=== PATIENT | male | born 1950 | race Caucasian/White ===

== ENCOUNTER 2020-03-28 09:52 | Inpatient (IN) | payer MEDICARE, OTHER ==
[~2020-03-28] VITALS: Ht 182.9 cm; Wt 88.7 kg
[2020-03-28 10:40] VITALS: BP 131/81
--- NOTE | 2020-03-28 10:40 | NUR ---
MARITZA BEGUM admitted to room 223-1, with an admitting diagnosis of CVA, on 03/28/20 from 4TH FLOOR via W/C, accompanied by STAFF.MARITZA BEGUM introduced to surroundings, call light, bed controls, phone, TV, temperature control, lights, meal times, smoking policy, visitor policy, side rail policy, bathrooms and showers. Patient Rights given to patient in the handbook.MARITZA BEGUM verbalizes understanding that [facility] is not responsible for the loss or damage to any personal effects or valuables that are kept in the patients posession during their hospitalization. The following Patient Care Plans were discussed with the PT AND : Discharge Planning, PAIN CONTROL,TESTS AND PROCEDURES, and PT/OT/ST. MARITZA BEGUM verbalizes understanding of Interdisciplinary Patient Education. Patient and/or family were informed about the Rapid Response Team and its purpose. Patient received Patient Rights Booklet, which includes Privacy Act Statement and Data Collection Information Summary.
[2020-03-28] MEDS ORDERED: ONDANSETRON 4 MG (ZOFRAN) ORAL DISSOLVE TAB PO PRN (10:45)
[2020-03-28] MEDS ORDERED: LACTULOSE SYRUP 10GM/15ML (ENULOSE) 30ML UDC PO PRN (10:45)
[2020-03-28] MEDS ORDERED: FLEET ENEMA ADULT 1 EA BTL PR PRN (10:45)
[2020-03-28] MEDS ORDERED: guaiFENesin/CODEINE (ROBITUSSIN AC) 10ML UDC PO PRN (10:45)
[2020-03-28] MEDS ORDERED: DOCUSATE SODIUM 100 MG (COLACE) CAP PO PRN (10:45)
[2020-03-28] MEDS ORDERED: CALCIUM CARBONATE 500 MG (TUMS) TAB.CHEW PO PRN (10:45)
[2020-03-28] MEDS ORDERED: BISACODYL 10 MG SUPP (DULCOLAX) PR PRN (10:45)
[2020-03-28] MEDS ORDERED: diphenhydrAMINE 25 MG TAB (BENADRYL) PO PRN (10:45)
--- NOTE | 2020-03-28 12:04 | Occupational Therapy Eval ---
OT Evaluation-General/PLF Medical Diagnosis Admission Date Mar 28, 2020 at 10:50 Medical Diagnosis: CVA Onset Date: Mar 28, 2020 Therapy Diagnosis Therapy Diagnosis: decreased ADL status, impaired functional balance Precautions Precautions/Isolations: Standard Precautions Referral Physician: Checo Dyer Reason: Evaluation/Treatment Medical History Pertinent Medical History: HTN Additional Medical History carotid stenosis, vertebral artery stenosis,. Pt sustained a fall approx 2 years ago and his mobility has been significantly limited since that time. Current History Pt admitted to [facility] with dizziness and vision changes, with report of no vision right eye. He was found to have an acute ischemic CVA. Pt transferred to ARU for continued medical management and skilled therapy services. Social History Home: Single Level Current Living Status: Spouse Entry Into Home: Stairs Without Railing Steps Into Home: 1 ADL-Prior Level of Function SCALE: Activities may be completed with or without assistive devices. 8-Nlamktwqtg-ariawae completes the activity by him/herself with no assistance from a helper. 5-Set-up or Clean-up Assistance-helper sets up or cleans up; patient completes activity. [place] assists only prior to or following the activity. 4-Supervision or Touching Assistance-helper provides verbal cues and/or touching/steadying and/or contact guard assistance as patient completes activity. Assistance may be provided throughout the activity or intermittently. 3-Partial/Moderate Assistance-helper does LESS THAN HALF the effort. [place] lifts, holds or supports trunk or limbs, but provides less than half the effort. 2-Substantial/Maximal Assistance-helper does MORE THAN HALF the effort. [place] lifts or holds trunk or limbs and provides more than half the effort. 5-Pwcxwklpg-kpmzns does ALL the effort. Patient does none of the effort to com plete the activity. Or, the assistance of 2 or more helpers is required for the patient to complete the activity. If activity was not attempted, code reason: 7-Patient Refused. 9-Not Applicable-not attempted and the patient did not perform the activity before the current illness, exacerbation or injury. 10-Not Attempted due to Environmental Limitations-(lack of equipment, weather restraints, etc.). 88-Not Attempted due to Medical Conditions or Safety Concerns. ADL PLOF Comments Pt indicates independent with ADLS at PLOF. Upon talking with pt's , she indicates that pt fell approx 2 years ago and has been primarily w/c bound since. She indicates pt is able to perform transfers himself but only walks about 5 feet at a time. He is able to propel w/c around the house. He rarely, if ever, leave the home. Pt's mentioned that she did not believe pt would be able to answer therapists questions well. Self Care: Independent Functional Cognition: Needed Some Help DME/Equipment: Bath Chair, Shower DME/Equipment Comments w/c, walker Drive Self: No OT Current Status Subjective Agreeable to OT evaluation and OT/PT cotreat. Did not verbalize any pain. Mental Status/Objective Patient Orientation: Person, Confused Attachments: Telemetry Current Glasses/Contacts: No Hearing Aids: No Dentures/Partials: No Hand Dominance: Right Upper Extremity ROM WFL, BUE shoulder flexion to approx 140 degrees Upper Extremity Coordination WFL Upper Extremity Sensation slightly decreased. Pt denies tingling/numbness, but throughout tx pt's RUE hung down at his side against w/c or recliner, pt unable to tell where his arm is. Upper Extremity Strength grossly 3+/5 RUE, LUE grossly 4/5 ADL-Treatment Eating (QC): 5 (Based on clincial judgement, pt would require set up assistance with task.) Oral Hygiene (QC): 3 (Min A, pt required cues to rinse and spit, assist to bring cup to mouth and assist bringing spit tray to mouth. Pt able to use toothbrush and brush gums after OT handed pt toothbrush set up with paste.) Shower/Bathe Self (QC): 1 (Assist x2 in ergonomics engineer order for OT to wash buttocks. Pt able to wash UEs, chest and upper legs but required assistance wtih all parts for thoroughness. Assist to wash lower legs/feet.) Upper Body Dressing (QC): 3 (Mod A, pt able to thread LUE, assist with RUE and moderate cues with task. ) Lower Body Dressing (QC): 3 (Pt able to thread BLEs into pants with cues to initiate, assist with pant hike in standing.) On/Off Footwear (QC): 3 (Min A, pt able to doff bilateral gripper socks, and don LLE sock. Assist to don RLE sock.) Toileting Hygiene (QC): 1 (Based on clinical judgement, pt would require assistance with pant hike and hygiene.) Other Treatments OT evaluation complete. OT/PT cotreat due to skill of 2 clinicians required which a brass instrument repair technician could not perform in order to coordinate UE/LEs, and due to pt's limitations in functional mobility/transfers, strength, activity tolerance, R visual field deficit. OT focused on UE placement, cues for sequencing and safety, ADLs, PT focused on LE placement, gross overall movements, and functional mobility and ambulation. Pt began tx in w/ and transferred to standing with FWW. Pt performed functional ambulation with FWW, and after taking a few steps over uneven surface, pt began to lose balance. Pt sat in w/ and took a rest break. Pt performed simulated car transfer with FWW then returned to pt's room. Pt transferred from [facility] to [facility] for a sponge bath. Pt participated in sponge bath at at assist x2 due to standing balance and also needing assistance to wash feet and constant cues to reach certain body parts. Pt able to wash most parts, but required assistance with thoroughness as he did not fully wash. Pt then completed dressing and oral care. [facility] to perform functional mobility through the [facility] area. pt then returned to room and transferred back to recliner from [facility]. Throughout tx, pt required cues to attend to R visual field and for R side attention. Pt's R hand would hang down to his side, and required assistance placing it into his lap. Pt also required assistance placing RUE onto walker with each transfer. Post tx, pt has call light in reach, chair alarm on and all needs met. Education OT Patient Education: Correct positioning, Energy conservation, Modified ADL techniques, Progress toward Goal/Update tx plan, Purpose of tx/functional activities, Rehab process, Safety issues, Transfer techniques, W/C management Teaching Recipient: Patient Teaching Methods: Discussion Response to Teaching: Verbalize Understanding, Reinforcement Needed OT Short Term Goals Short Term Goals Time Frame: Apr 19, 2020 Oral hygiene: 5 Toileting hygiene: 3 Shower/bathe self: 3 Upper body dressin Lower body dressin OT Driver Operator Goals Driver Operator Goals Time Frame: Apr 26, 2020 Eating (QC): 6 Oral Hygiene (QC): 6 Toileting Hygiene (QC): 6 Shower/Bathe Self (QC): 4 Upper Body Dressing (QC): 5 Lower Body Dressing (QC): 5 On/Off Footwear (QC): 5 Additional Goals: 1-Demonstrate ADL Tasks, 2-Verbalize Understanding, 3- ImproveStrength/Kera 1=Demonstrate adherence to instructed precautions during ADL tasks. 2=Patient will verbalize/demonstrate understanding of assistive devices/modifications for ADL. 3=Patient will improve strength/tolerance for activity to enable patient to perform ADL's. OT Education/Plan Problem List/Assessment Assessment: Decreased Activ Tolerance, Decreased Safety Aware, Decreased UE Strength, Impaired Cognition, Impaired Funct Balance, Impaired I ADL's, Impaired Self-Care Skills, Restricted Funct UE ROM, Visual-Perceptual Deficit Discharge Recommendations Plan/Recommendations: Continue POC Treatment Plan/Plan of Care Patient would benefit from OT for education, treatment and training to promote independence in ADL's, mobility, safety and/or upper extremity function for ADL's. Plan of Care: ADL Retraining, Functional Mobility, Group Exercise/Act as Ind, UE Funct Exercise/Act, UE Neuromus Re-Ed/Coord, Visual/Perceptual Retrain, W/C Management Training Treatment Duration: Apr 26, 2020 Frequency: At least 5 of 7 days/Wk (IRF) Estimated Hrs Per Day: 1.5 hours per day Agreement: Yes Rehab Potential: Fair Time/GCodes Start Time: 10:50 Stop Time: 12:00 Total Time Billed (hr/min): 70 Billed Treatment Time 0713-2204 OT evaluation, [id number] OT/PT cotreat. 1, EVM (10'), ADL 2 (30'), FA 2 (30') LUCILLE PACE OT Mar 28, 2020 12:04
--- NOTE | 2020-03-28 12:08 | Physical Therapy Evaluation ---
PT Evaluation-General Medical Diagnosis Admission Date Mar 28, 2020 at 10:50 Medical Diagnosis: Acute ischemic CVA Onset Date: Mar 28, 2020 Therapy Diagnosis Therapy Diagnosis: weakness; abn gait Precautions Precautions/Isolations: Standard Precautions Referral Physician: sarkis Reason for Referral: Evaluation/Treatment Medical History Pertinent Medical History: HTN Additional Medical History Pt sustained a fall approx 2 years ago and his ambulation has been significantly limited since that time. Intracranial mass Current History Pt admitted to acute with dizziness and vision changes, with report of no vision right eye. He was found to have an acute ischemic CVA. Pt transferred to ARU for continued medical management and skilled therapy services. Reviewed History: Yes Social History Home: Single Level Current Living Status: Spouse Entry Into Home: Stairs Without Railing PT Steps Into Home: 1 PT Steps Inside Home: 0 Prior Prior Level of Function SCALE: Activities may be completed with or without assistive devices. 4-Lffzomejoj-tlnhwwj completes the activity by him/herself with no assistance from a helper. 5-Set-up or Clean-up Assistance-helper sets up or cleans up; patient completes activity. [place] assists only prior to or following the activity. 4-Supervision or Touching Assistance-helper provides verbal cues and/or touching/steadying and/or contact guard assistance as patient completes activity. Assistance may be provided throughout the activity or intermittently. 3-Partial/Moderate Assistance-helper does LESS THAN HALF the effort. [place] lifts, holds or supports trunk or limbs, but provides less than half the effort. 2-Substantial/Maximal Assistance-helper does MORE THAN HALF the effort. [place] lifts or holds trunk or limbs and provides more than half the effort. 7-Vgxapdslt-ammsnb does ALL the effort. Patient does none of the effort to complete the activity. Or, the assistance of 2 or more helpers is required for the patient to complete the activity. If activity was not attempted, code reason: 7-Patient Refused. 9-Not Applicable-not attempted and the patient did not perform the activity before the current illness, exacerbation or injury. 10-Not Attempted due to Environmental Limitations-(lack of equipment, weather restraints, etc.). 88-Not Attempted due to Medical Conditions or Safety Concerns. Bed Mobility: 6 Transfers (B,C,W/C): 6 Gait: 4 Stairs: 4 Indoor Mobility (Ambulation): Needed Some Help (Pt primarily uses wc) Stairs: Needed Some Help Prior Devices Use: Manual wheelchair, Walker Spoke with patient's this date and she reports he sustained a fall approx 2 years ago and since that time, he is primarily wheelchair bound. She reports he is able to transfer and toilet himself from a wheelchair level. Reports he only walks about 5 feet at a time; reports he is able to propel himself in the wheelchair at home; she reports he rarely, if ever, leaves the home. Reports they have 1 step to get in/out of the home without a handrail. PT Evaluation-Current Subjective Pt reports, "I am concerned about what you are going to do on this other floor." Referring to the transfer to ARU. Agrees to PT. Pt provides limited history; reports, "I don't like to visit very much." Spoke to patient's and she provided more details as noted in PLOF Objective Patient Orientation: Person, Confused Pt unable to voice age, number of children, past jobs or even recent history. ROM/Strength ROM Lower Extremities WNL Strength Lower Extremities Right LE strength is grossly 3+/5; left LE strength is 4+/5 Integumentary/Posture Integumentary Intact Posture Slightly rounded shoulders and forward head. Neuromuscular (Tone, Coordination, Reflexes) Tone is WNL; impaired coordinated movement rigth U/LE; reflexes intact. Decreased awareness right side with noted right neglect. Sensory Vision: Impaired Hearing: Functional Hand Dominance: Right Sensation Right Lower Extremit: Intact Sensation Left Lower Extremity: Impaired (decreased awareness in space and tactile touch) Transfers Roll Left & Right (QC): 3 (verbal and tactile cues to complete) Sit to Lying (QC): 3 (verbal and tactile cues to complete) Lying to Sitting/Side of Bed(Q: 3 (verbal and tactile cues to complete) Sit to Stand (QC): 3 (verbal and tactile cues to complete) Chair/Xks-wi-Fnpjg Xfer(QC): 2 (verbal and tactile cues to complete; assist for balacne with turning and assist to manage the walker. ) Toilet Transfer (QC): 3 Car Transfer (QC): 3 (verbal and tactile cues required. ) Pt lacks initiation with tasks and requires cues 90% of the time to stay on task and to complete; skilled cues for awareness of right side. Gait Does the Patient Walk?: Yes Mode of Locomotion: Both Anticipated Mode of Locomotion: Both Walk 10 feet (QC): 3 (assist for balance and to manage the walker; cues for obstacle avoidance and for sequencing. ) Walk 50 ft with 2 Turns(QC): 3 Walk 150 ft (QC): 88 Walking 10ft/uneven surface-QC: 3 Gait Assistive Device: FWW Comments/Gait Description Assist for balance, walker management; scanning; gait pattern. Pt has difficulty reaching up and maintaining grasp on walker with right UE; decreased step thru and clearance right LE; veers right; limited awareness of safety. Pt had 1 LOB episode during gait with rigid assist to recover. Wheelchair Training Does the Pt Use a Wheelchair?: Yes Wheel 50 ft with 2 turns (QC): 4 (SBA) Wheel 150 ft (QC): 3 (min assist to achieve this distance;) Type of Wheelchair: Manual Pt able to propel with B U/LE Stairs 1 Step (curb) (QC): 88 (approached step but pt unable to safely attempt.) 4 Steps (QC): 88 12 Steps (QC): 88 Balance Sitting Static: Fair Sitting Dynamic: Fair Standing Static: Fair Standing Dynamic: Fair Picking up an Object (QC): 88 Treatment Co treat with OT; skill of 2 clinicians indicated due to decreased cognitive awareness/interaction and need for heavy cues verbal and tactile throughout entire treatment; pt requires assist with sequencing, processing, initiation as well as placement and use of R UE; in addition, requires assist with transfers, gait and functional balance. Pt performed in and out of room mobility tasks as well as seated sponge bath. OT addressed sequencing and task completion as well as UE use as PT addressed the gross motor tasks of transfers, gait, bed mobiltiy. Assessment/Needs Post CVA with right side weakness and right side neqlect; in addition, limited initiation and ability to complete tasks without heavy verbal and tactile cues. Pt has been limited in his ambulatory status for approx 2 years (according to his ) and typically uses a wheelchair for mobility in his home and she also notes he rarely leaves his home. During this assessment, it is found that he is able to walk with assist for short distances. He will beneift from skilled PT to address his strength, balance and actiivty tolerance deficits as well as his limited initiation and visual deficits to optimize function, safety, initiaion and ability to reside at home as before. He was cooperative and will benefit from skilled services. Rehab Potential: Guarded PT Short Term Goals Short Term Goals Time Frame: Apr 11, 2020 Roll Left & Right: 5 Sit to lyin Lying to sitting on side of be: 5 Sit to stand: 4 Chair/dti-eq-igpzg transfer: 4 Walk 10 feet: 4 Walk 50 feet with two turns: 3 PT Donation Specialist Goals Donation Specialist Goals PT Donation Specialist Goals Time Frame: Apr 25, 2020 Roll Left & Right (QC): 6 Sit to Lying (QC): 6 Lying-Sitting on Side/Bed(QC): 6 Sit to Stand (QC): 6 Chair/Nky-de-Mvywj Xfer(QC): 6 Toilet Transfer (QC): 6 Car Transfer (QC): 4 Does the Patient Walk: Yes Walk 10 feet (QC): 4 Walk 50ft with 2 Turns (QC): 4 Walk 150 ft (QC): 9 Walking 10ft on Uneven Surface: 3 1 Step (curb) (QC): 3 4 Steps (QC): 9 12 Steps (QC): 9 Picking up an Object (QC): 9 Does the Pt use WC or Scooter?: Yes Wheel 50 feet with 2 turns (QC: 6 Type: Manual Wheel 150 feet: 6 Type: Manual PT Plan Problem List Problem List: Activity Tolerance, Functional Strength, Safety, Balance, Gait, Transfer, Bed Mobility Treatment/Plan Treatment Plan: Continue Plan of Care Treatment Plan: Bed Mobility, Education, Functional Activity Kera, Functional Strength, Group Therapy, Gait, Safety, Therapeutic Exercise, Transfers Treatment Duration: Apr 25, 2020 Frequency: At least 5 of 7 days/Wk (IRF) Estimated Hrs Per Day: 1.5 hours per day Patient and/or Family Agrees t: Yes Safety Risks/Education Patient Education: Transfer Techniques, Safety Issues Teaching Recipient: Patient Teaching Methods: Demonstration Response to Teaching: Return Demonstration, Reinforcement Needed Discharge Recommendations Therapy Discharge Recommendati: Post Acute PT Time/GCodes Time In: 1040 Time Out: 1050 ([id number] (co treat with OT)) Total Billed Treatment Time: 70 Total Billed Treatment visit EVM 10 FA 60 (co treat with OT) JANNET FRIAS PT Mar 28, 2020 12:08
--- NOTE | 2020-03-28 12:14 | PM&R Post Admission Assessment ---
PM&R HP Date of Visit: Mar 28, 2020 Time of Visit: 12:00 History of Present Illness CC: CVA HPI: This is a 69yoWM without a PCP who presents to the IRF with CVA deficits. Apparently he presented to the ER after an undetermined amount of time following complaints of vision loss and speech difficulty, He was not a tPA candidate. Apparently patient has been non-ambulatory for the past 2 years due to "rods in the leg" and gets around at home in a wheelchair. Patient seems to have dementia and cannot provide any significant details about his history. We will work towards increased independence while IRF course ensues. Past Kdqceyi-Fvwpsi-Ljqfxu Hx Past Med/Social Hx: Reviewed Nursing Past Med/Soc Hx, Reviewed and Corrections made Patient Social History Marrital Status: Employed/Student: retired Alcohol Use: Denies Use Smoking Status: Former Smoker Recent Hopitalizations: Yes Past Medical History Neurological: Stroke (03/26/20) Reproductive: No Musculoskeletal: Arthritis History of Blood Disorders: No Eatin (Based on clincial judgement, pt would require set up assistance with task.) Oral Hygiene: 3 (Min A, pt required cues to rinse and spit, assist to bring cup to mouth and assist bringing spit tray to mouth. Pt able to use toothbrush and brush gums after OT handed pt toothbrush set up with paste.) Shower/Bathe Self: 1 (Assist x2 in interior paneler order for OT to wash buttocks. Pt able to wash UEs, chest and upper legs but required assistance wtih all parts for thoroughness. Assist to wash lower legs/feet.) Upper Body Dressin (Mod A, pt able to thread LUE, assist with RUE and moderate cues with task. ) Lower Body Dressin (Pt able to thread BLEs into pants with cues to initiate, assist with pant hike in standing.) On/Off Footwear: 3 (Min A, pt able to doff bilateral gripper socks, and don LLE sock. Assist to don RLE sock.) Toileting Hygiene: 1 (Based on clinical judgement, pt would require assistance with pant hike and hygiene.) PM&R Allergy/Meds/Data Review Allergies Coded Allergies: Penicillins (Unverified Allergy, Intermediate, RASH, 02/08/06) codeine (Unverified Allergy, Intermediate, RASH, 02/08/06) Home Medications No Active Prescriptions or Reported Meds Current Medications Current Medications Reviewed Review of Systems Constitutional: see HPI, malaise, weakness EENTM: vision loss (right sided bilateral) Respiratory: no symptoms reported Cardiovascular: no symptoms reported Gastrointestinal: no symptoms reported Genitourinary: no symptoms reported Musculoskeletal: back pain, joint pain Skin: no symptoms reported Psychiatric/Neurological: No Symptoms Reported All Other Systems Reviewed Negative Unless Noted: Yes Physical Exam Physical Exam Vital Signs Capillary Refill : Height, Weight, BMI Height: '" Weight: lbs. oz. kg; 26.27 BMI Method: General Appearance: No Apparent Distress, WD/WN, Chronically ill Eyes: Bilateral Eye Normal Inspection, Bilateral Eye PERRL HEENT: PERRL/EOMI, TMs Normal, Normal ENT Inspection, Pharynx Normal Neck: Full Range of Motion, Normal Inspection, Non Tender, Supple, Carotid Bruit Respiratory: Chest Non Tender, Lungs Clear, Normal Breath Sounds, No Accessory Muscle Use, No Respiratory Distress Cardiovascular: Regular Rate, Rhythm, No Edema, No Gallop, No JVD, No Murmur, Normal Peripheral Pulses Gastrointestinal: Normal Bowel Sounds, No Organomegaly, No Pulsatile Mass, Non Tender, Soft Back: Normal Inspection, No CVA Tenderness, No Vertebral Tenderness Extremity: Normal Capillary Refill, Normal Inspection, Normal Range of Motion, Non Tender, No Calf Tenderness, No Pedal Edema Neurologic/Psychiatric: Alert, Normal Mood/Affect, 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, Abnormal Gait, Disoriented, Motor Weakness (generalized weakness 3/5 arms 2/5 legs but right sided neglect noted) Skin: Normal Color, Warm/Dry Lymphatic: No Adenopathy PM&R Medical Assessment & Plan REHAB/MEDICAL ASSESSMENT AND PLAN: REHAB IMPAIRMENT GROUP: CVA ETIOLOGIC DIAGNOSIS: CVA The comorbidities that impact the patients function and/or functional outcome by: severe debility PLOF, dementia noted SLUMS 03/06, right sided neglect, fall risk REHAB PLAN: The patient is being admitted to our comprehensive inpatient rehabilitation facility and can tolerate the intensity of service consisting of at least: 180 minutes of therapy a day, 5 out of 7 days a week Rehab treatment will consist of: PT OT will help increase mobility and build safety awareness and increase ambulatory skills in order to return home to live independently The patient/family has a good understanding of our discharge process and will benefit from an interdisciplinary inpatient rehabilitation program. The patient has potential to make improvement and is in need of at least two of the following multidisciplinary therapies including but not limited to physical, occupational, speech, and prosthetics and orthotics. Additionally the patient will need services from respiratory, nutritional services, wound care, psychology, etc. (Customize this to each patient). Given the patients complex condition and risk of further medical complications, rehabilitation services cannot be safely or effectively provided at a lower level of care such as a nursing home facility. BARRIERS TO DISCHARGE: Dementia and severe deficit in PLOF ESTIMATED LOS: 10 days DISPOSITION: Home RELEVANT CHANGES SINCE PREADMISSION SCREENING: I have compared the patients medical and functional status at the time of the preadmission screening and there are: no changes PROGNOSIS: Fair REHABILITATION GOALS: 1. PT OT will help increase mobility and build safety awareness and increase ambulatory skills in order to return home to live independently All the above goals were reviewed with the patient and he/she is in agreement. By signing this document, I acknowledge that I have personally performed a full physical examination on this patient within 24 hours of admission to this inpatient rehabilitation facility and have determined the patient to be able to tolerate the above course of treatment at an intensive level for a reasonable period of time. I will be completing a detailed individualized Plan of Care for this patient by day #4 of the patients stay based upon the Preadmission Screen, the Post-Admission Evaluation, and the therapy evaluations. 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 Status: Acute ICD Codes: I63.532 - Cerebral infarction due to unspecified occlusion or stenosis of left posterior cerebral artery (2) Carotid stenosis, bilateral Status: Acute ICD Codes: I65.23 - Occlusion and stenosis of bilateral carotid arteries (3) Right homonymous hemianopsia due to recent cerebral infarction Status: Acute ICD Codes: I69.398 - Other sequelae of cerebral infarction; H53.461 - Homonymous bilateral field defects, right side (4) Vertebral artery stenosis/occlusion Status: Acute ICD Codes: I65.09 - Occlusion and stenosis of unspecified vertebral artery (5) Impaired vision in both eyes Status: Acute ICD Codes: H54.3 - Unqualified visual loss, both eyes (6) HLD (hyperlipidemia) Status: Acute ICD Codes: E78.5 - Hyperlipidemia, unspecified (7) HTN (hypertension) Status: Acute ICD Codes: I10 - Essential (primary) hypertension Assessment/Plan Assessment and Plan Assess & Plan/Chief Complaint Assessment: s/p acute ischemic stroke Bilateral carotid stenosis has f/u [address] Sanders CTA revealed bilateral carotid stenosis >70%, chronically occluded right vertebral artery, left vertebral artery stenosis >70% Vertebral artery stenosis/occlusion Impaired vision in both eyes Dementia 03/06 SLUMS HTN HLD DVT prophylaxis: Lovenox Chronic debility and non-ambulatory for 2 years per Plan: IRF protocol Wheelchair bound at home Statin Monitor closely AYALA PARKS DO Mar 28, 2020 12:14
[2020-03-28] MEDS ORDERED: LORazepam INJ 2 MG/ML (ATIVAN) VIAL IVP PRN (12:15)
[2020-03-28] MEDS ORDERED: ONDANSETRON 4 MG/2 ML (SDV) Z0FRAN IVP PRN (12:15)
[2020-03-28] MEDS ORDERED: LABETALOL HCL 20 MG/4 ML VIAL IV PRN (12:15)
[2020-03-28] MEDS ORDERED: ENOXAPARIN 40 MG/0.4 ML (LOVENOX) SYR SC SCH (12:15)
--- NOTE | 2020-03-28 13:53 | Physical Therapy Daily Note ---
PT Daily Note-Current Subjective Agrees to PT. Asks this therapist during the session, "Do you ever get tired of doing this?" No complaints. Transfers SCALE: Activities may be completed with or without assistive devices. 6-Jbmxolmsud-oajkvyb completes the activity by him/herself with no assistance from a helper. 5-Set-up or Clean-up Assistance-helper sets up or cleans up; patient completes activity. [place] assists only prior to or following the activity. 4-Supervision or Touching Assistance-helper provides verbal cues and/or touching/steadying and/or contact guard assistance as patient completes activity. Assistance may be provided throughout the activity or intermittently. 3-Partial/Moderate Assistance-helper does LESS THAN HALF the effort. [place] lifts, holds or supports trunk or limbs, but provides less than half the effort. 2-Substantial/Maximal Assistance-helper does MORE THAN HALF the effort. [place] lifts or holds trunk or limbs and provides more than half the effort. 4-Olrtnghzj-jerfmk does ALL the effort. Patient does none of the effort to complete the activity. Or, the assistance of 2 or more helpers is required for the patient to complete the activity. If activity was not attempted, code reason: 7-Patient Refused. 9-Not Applicable-not attempted and the patient did not perform the activity before the current illness, exacerbation or injury. 10-Not Attempted due to Environmental Limitations-(lack of equipment, weather restraints, etc.). 88-Not Attempted due to Medical Conditions or Safety Concerns. Sit to Stand (QC): 3 (CGA but pt did not require cues for hand placement. ) Stood at edge of chair for weight shifting. Exercises Supine Ex: Ankle pumps, Quad Set, Heel Slides, Short Arc Quads, Straight leg raise, Hip abd/add Supine Reps: 12 (Le strength to promote improved transfers and gait. ) Seated Therapy Exercises: Ankle pumps, Long arc quads, Hip flexion, Hip abd/add Seated Reps: 12 (Le strength to promote improved transfers and gait. ) Treatments B LE ther ex; in chair with chair alarm activated post treatment; call light in reach and needs met. Assessment Improved transfer this afternoon and needed fewer cues. Pt seemed more alert and visited more this visit. PT Short Term Goals Short Term Goals Time Frame: Apr 11, 2020 Roll Left & Right: 5 Sit to lyin Lying to sitting on side of be: 5 Sit to stand: 4 Chair/ebb-ze-kyjcg transfer: 4 Walk 10 feet: 4 Walk 50 feet with two turns: 3 PT Skilled Nursing Goals Ibm Mainframe Developer Goals PT Skilled Nursing Goals Time Frame: Apr 25, 2020 Roll Left & Right (QC): 6 Sit to Lying (QC): 6 Lying-Sitting on Side/Bed(QC): 6 Sit to Stand (QC): 6 Chair/Kml-pj-Yppjr Xfer(QC): 6 Toilet Transfer (QC): 6 Car Transfer (QC): 4 Does the Patient Walk: Yes Walk 10 feet (QC): 4 Walk 50ft with 2 Turns (QC): 4 Walk 150 ft (QC): 9 Walking 10ft on Uneven Surface: 3 1 Step (curb) (QC): 3 4 Steps (QC): 9 12 Steps (QC): 9 Picking up an Object (QC): 9 Does the Pt use WC or Scooter?: Yes Wheel 50 feet with 2 turns (QC: 6 Type: Manual Wheel 150 feet: 6 Type: Manual PT Plan Problem List Problem List: Activity Tolerance, Functional Strength, Safety Treatment/Plan Treatment Plan: Continue Plan of Care Treatment Plan: Bed Mobility, Education, Functional Activity Kera, Functional Strength, Group Therapy, Gait, Safety, Therapeutic Exercise, Transfers Treatment Duration: Apr 25, 2020 Frequency: At least 5 of 7 days/Wk (IRF) Estimated Hrs Per Day: 1.5 hours per day Patient and/or Family Agrees t: Yes Time/GCodes Time In: 1332 Time Out: 1347 Total Billed Treatment Time: 15 Total Billed Treatment visit EX 15 JANNET FRIAS PT Mar 28, 2020 13:53
--- NOTE | 2020-03-28 14:03 | Occupational Ther Daily Note ---
OT Current Status-Daily Note Subjective Pt laying back in recliner, agreeable to OT tx. Mental Status/Objective Patient Orientation: Person, Confused ADL-Treatment Therapy Code Descriptions/Definitions Functional [place] Measure: 0=Not Assessed/NA 4=Minimal Assistance 1=Total Assistance 5=Supervision or Setup 2=Maximal Assistance 6=Modified [place] 3=Moderate Assistance 7=Complete IndependenceSCALE: Activities may be completed with or without assistive devices. 7-Zpluspbhet-rlprndf completes the activity by him/herself with no assistance from a helper. 5-Set-up or Clean-up Assistance-helper sets up or cleans up; patient completes activity. [place] assists only prior to or following the activity. 4-Supervision or Touching Assistance-helper provides verbal cues and/or touching/steadying and/or contact guard assistance as patient completes activity. Assistance may be provided throughout the activity or intermittently. 3-Partial/Moderate Assistance-helper does LESS THAN HALF the effort. [place] lifts, holds or supports trunk or limbs, but provides less than half the effort. 2-Substantial/Maximal Assistance-helper does MORE THAN HALF the effort. [place] lifts or holds trunk or limbs and provides more than half the effort. 8-Dsicycqzg-wfjoqv does ALL the effort. Patient does none of the effort to complete the activity. Or, the assistance of 2 or more helpers is required for the patient to complete the activity. If activity was not attempted, code reason: 7-Patient Refused. 9-Not Applicable-not attempted and the patient did not perform the activity before the current illness, exacerbation or injury. 10-Not Attempted due to Environmental Limitations-(lack of equipment, weather restraints, etc.). 88-Not Attempted due to Medical Conditions or Safety Concerns. Other Treatment Pt participated in BUE exercises of 15 reps each for the following; shoulder flexion, elbow flexion(biceps), elbow extension(triceps), and horizontal add uction. Pt needed verbal demonstration of how to do exercise on each one. On horizontal abduction, pt needed hand over hand guidance, verbal cues and demonstration to proceed with movement. OT attempted to demo to pt at pt's midline. Pt able to tell therapist to scoot over as he wasn't able to see her fully. OT able to move to pt's left visual field for demonstration. Pt left in recliner with call light in reach on L side and all needs met. Chair alarm on. Education OT Patient Education: Correct positioning, Exercise program, Modified ADL techniques, Progress toward Goal/Update tx plan, Purpose of tx/functional activities, Reviewed precautions Teaching Recipient: Patient Teaching Methods: Demonstration Response to Teaching: Reinforcement Needed OT Short Term Goals Short Term Goals Time Frame: Apr 19, 2020 Oral hygiene: 5 Toileting hygiene: 3 Shower/bathe self: 3 Upper body dressin Lower body dressin OT Correction Goals Instructor Nurse Goals Time Frame: Apr 26, 2020 Eating (QC): 6 Oral Hygiene (QC): 6 Toileting Hygiene (QC): 6 Shower/Bathe Self (QC): 4 Upper Body Dressing (QC): 5 Lower Body Dressing (QC): 5 On/Off Footwear (QC): 5 Additional Goals: 1-Demonstrate ADL Tasks, 2-Verbalize Understanding, 3- ImproveStrength/Kera 1=Demonstrate adherence to instructed precautions during ADL tasks. 2=Patient will verbalize/demonstrate understanding of assistive devices/modifications for ADL. 3=Patient will improve strength/tolerance for activity to enable patient to perform ADL's. OT Education/Plan Problem List/Assessment Assessment: Decreased UE Strength, Impaired I ADL's, Impaired Self-Care Skills, Restricted Funct UE ROM Discharge Recommendations Plan/Recommendations: Continue POC Treatment Plan/Plan of Care Patient would benefit from OT for education, treatment and training to promote independence in ADL's, mobility, safety and/or upper extremity function for ADL's. Plan of Care: ADL Retraining, Functional Mobility, Group Exercise/Act as Ind, UE Funct Exercise/Act, UE Neuromus Re-Ed/Coord, Visual/Perceptual Retrain, W/C Management Training Treatment Duration: Apr 26, 2020 Frequency: At least 5 of 7 days/Wk (IRF) Estimated Hrs Per Day: 1.5 hours per day Rehab Potential: Fair Time/GCodes Start Time: 13:15 Stop Time: 13:25 Total Time Billed (hr/min): 10 Billed Treatment Time 1, EX (10') LUCILLE PACE OT Mar 28, 2020 14:03
[2020-03-28] MEDS: ZINC OXIDE 16% OINT (BUTT PASTE) 57 GM TUBE TOP SCH ×2 (15:30→20:15)
--- NOTE | 2020-03-28 15:34 | NUR ---
NOTIFIED ABOUT PTS. UPDATE ON FLU VACCINE. YA () STATED "MARITZA HAS NEVER TAKEN THE FLU VACCINE, SO I DON'T THINK HE SHOULD TAKE IT THIS HOSPITAL STAY."
--- NOTE | 2020-03-28 15:47 | ST Cognitive Linguistic Eval ---
Speech Evaluation-General Medical Diagnosis CVA Onset Date: Mar 28, 2020 Therapy Diagnosis Therapy Diagnosis: Expressive Aphasia Precautions Precautions/Isolations: Fall Prevention, Standard Precautions Referral Referring Physician: Dr. Kessler Medical History Pertinent Medical History: HTN Reviewed History: Yes Social History Current Living Status: Spouse Speech PLF-Current Status Prior Level of Function Patient lives with his in their own home. Patient had a fall 2 years ago and he has been dependent for his daily needs since that time. Subjective Patient was pleasant with his cognitive and dysphagia assessments. Language Eval: Auditory Comprehends Simple Yes/No Ques: Functional Indent/Objects Multiple [place]: Mild Ident/Pics in [place]: Moderate Follows 1-Step Commands: Mild Follows Complex Directions: Moderate Follows General Conversations: Mild Language Eval: Verbal Language Completes Spontaneous Greeting: Functional Produces Auto, Serial Info: Mild Imitates Simple Words/Phrases: Mild Word Finding: Mild Requests Basic Needs: Mild States Basic Personal Info: Mild Expresses Complex Ideas: Moderate Objective Cognitive Domain Attention: Mild Memory: Mild Problem Solving: Moderate Executive Functions: Moderate Visuospatial Skills: Mild Composite Severity Rating: Moderate Objective Formal/Standardized Tests [facility] Mental Status ([facility]) Results 12/30, Moderate Dementia range of function Oral Motor/Speech Production Within Normal Limits, with decreased output Impression Patient is a 69 y/o male who was admitted to the ARU s/p CVA. Patient exhibits expressive aphasia, partially due to a fall 2 years ago. Patient has been primarily dependent on his since that time. The patient was given the UMS with a score of 12/30 obtained. This score is within the moderate dementia range of function. Patient will receive skilled ST to address cognitive and speech deficits. Patient was also assessed for his swallow ability with recommendation to remain on Dysphagia I and [place] consistency liquids. Patient will also receive dysphagia therapy with focus on safety of oral intake. Speech Patient Assess Expression of Ideas/Wants: Frequently (2) Understanding Verbal Content: Usually Understands (3) Brief Interview-Mental Status: Yes Repetition of Three Words: Three (3) Temporal Orientation: Year: Correct (3) Temporal Orientation: Month: Accurate within 5 days(2) Temporal Orientation: Day: Correct (1) Recall : Wear to say "Sock": No, could not recall (0) Recall : Color: No, could not recall (0) Recall : Bed: Yes,after cueing (1) Memory/Recall Ability: Current season, That he or she is in a hsp/hsp unit Speech Short Term Goals Short Term Goals Short Term Goals 1) Patient will complete memory tasks related to his daily needs with 80% accuracy given minimal cues. 2) Patient will complete tasks safety awareness to his daily needs with 80% accuracy given minimal cues. 3) Patient will complete problem solving tasks related to his daily needs with 80% accuracy given minimal cues. 4) Patient will tolerate least restrictive diet level without s/s of aspiration at 80% with minimal cues. 5) Patient/caregiver will utilize compensatory strategies as trained at 90% with minimal cues. Speech Group Home Goals Group Home Goals Patient will improve cognitive-communication abilities in order to complete daily tasks with decreased assistance. Patient will maintain adequate nutrition/hydration via safe effective swallow function. Speech-Plan Patient/Family Goals Patient/Family Goals: Patient plans on returning to his home where he lives with his . Treatment Plan Speech Therapy Treatment Plan: Continue Plan of Care Treatment Duration: Apr 12, 2020 Frequency: 4 times per week (Patient will receive skilled ST 4-5x per week) Estimated Hrs Per Day: .5 hour per day Rehab Potential: Fair Barriers to Learning: Patient's cognitive deficits as well as recent CVA Pt/Family Agrees to Plan: Yes Safety Risks/Education Teaching Recipient: Patient Teaching Methods: Discussion Response to Teaching: Verbalize Understanding, Reinforcement Needed Education Topics Provided: Safety within his room, safety with oral intake Time Speech Therapy Time In: 15:55 Speech Therapy Time Out: 16:25 Total Billed Time: 30 Billed Treatment Time 1, DYSEVS, DYST, SPSNDCOMP, SLTS HOLDEN Erazo Mar 28, 2020 15:47
[2020-03-28 16:26] VITALS: BP 132/73
[2020-03-28] MEDS: CARVEDILOL 12.5 MG (COREG) TABLET PO SCH (20:15)
[2020-03-28] MEDS: ALPRAZolam 0.25 MG (XANAX) TAB PO PRN (20:15)
[2020-03-28] MEDS: DOCUSATE SODIUM 100 MG (COLACE) CAP PO SCH (20:22)
[2020-03-28] MEDS: SENNA W/DOCUSATE (SENOKOT S) TABLET PO SCH (20:23)
[2020-03-28] MEDS: polyethylene glycoL POWDER 17 GM (MIRALAX) PACK PO SCH (20:23)
[2020-03-29 05:38] VITALS: BP 149/80
[2020-03-29 05:50] LABS: BASOPHILS # (AUTO) 0.1 10^3/uL (0.0-0.1); BASOPHILS % (AUTO) 1 % (0-10); EOSINOPHILS # (AUTO) 0.1 10^3/uL (0.0-0.3); EOSINOPHILS % (AUTO) 1 % (0-10); HEMATOCRIT 47 % (40-54); HEMOGLOBIN 15.4 g/dL (13.3-17.7); LYMPHOCYTES # (AUTO) 2.3 10^3/uL (1.0-4.0); LYMPHOCYTES % (AUTO) 21 % (12-44); MEAN CORPUSCULAR HEMOGLOBIN 34 pg (25-34); MEAN CORPUSCULAR HGB CONC 33 g/dL (32-36); MEAN CORPUSCULAR VOLUME 104 fL (80-99); MEAN PLATELET VOLUME 11.1 fL (9.0-12.2); MONOCYTES # (AUTO) 1.4 10^3/uL (0.0-1.0); MONOCYTES % (AUTO) 13 % (0-12); NEUTROPHILS # (AUTO) 7.1 10^3/uL (1.8-7.8); NEUTROPHILS % (AUTO) 64 % (42-75); PLATELET COUNT 219 10^3/uL (130-400); WHITE BLOOD COUNT 11.1 10^3/uL (4.3-11.0)
[2020-03-29 05:54] LABS: ALBUMIN 4.1 GM/DL (3.2-4.5)
[2020-03-29 05:55] LABS: CHLORIDE 106 MMOL/L (98-107); POTASSIUM 3.6 MMOL/L (3.6-5.0); SODIUM 142 MMOL/L (135-145)
[2020-03-29 05:56] LABS: CALCIUM 9.3 MG/DL (8.5-10.1)
[2020-03-29 05:57] LABS: GLUCOSE 123 MG/DL (70-105); TOTAL PROTEIN 7.5 GM/DL (6.4-8.2)
[2020-03-29 05:58] LABS: CARBON DIOXIDE 22 MMOL/L (21-32)
[2020-03-29 06:00] LABS: ALKALINE PHOSPHATASE 59 U/L (40-136)
[2020-03-29 06:01] LABS: CREATININE SERUM 0.85 MG/DL (0.60-1.30); GFR ESTIMATED > 60
[2020-03-29 06:02] LABS: BUN/CREATININE RATIO 33
[2020-03-29 06:04] LABS: ALANINE AMINOTRANSFERASE 29 U/L (0-55)
[2020-03-29] MEDS: polyethylene glycoL POWDER 17 GM (MIRALAX) PACK PO SCH ×2 (07:52→20:41)
[2020-03-29] MEDS: ENOXAPARIN 40 MG/0.4 ML (LOVENOX) SYR SC SCH (07:52)
[2020-03-29] MEDS: SENNA W/DOCUSATE (SENOKOT S) TABLET PO SCH ×2 (07:52→20:41)
[2020-03-29] MEDS: CARVEDILOL 12.5 MG (COREG) TABLET PO SCH ×2 (07:53→20:42)
[2020-03-29] MEDS: DOCUSATE SODIUM 100 MG (COLACE) CAP PO SCH ×2 (07:53→20:41)
[2020-03-29] MEDS: CLOPIDOGREL 75 MG (PLAVIX) TABLET PO SCH (07:53)
[2020-03-29] MEDS: ZINC OXIDE 16% OINT (BUTT PASTE) 57 GM TUBE TOP SCH ×2 (07:56→20:42)
[2020-03-29] MEDS: amLODIPine 10 MG (NORVASC) TAB PO SCH (07:56)
--- NOTE | 2020-03-29 10:24 | PM&R Progress Note ---
Subjective HPI/CC On Admission Date Seen by Provider: Mar 29, 2020 Time Seen by Provider: 10:30 Subjective/Events-last exam 03/29/20: Patient seems to be progressing very well Able to walk farther today Seems more alert and less confused today Outperforming with therapy today No pain reported ST working with him for swallowing and cognition Checked meds and labs Review of Systems Neurological: Weakness, Incoordination, Change in speech, Confusion Objective Exam Vital Signs Vital Signs Date Time Temp Pulse Resp B/P (MAP) Pulse Ox O2 Delivery O2 Flow Rate FiO2 03/30/20 05:02 36.8 65 16 126/67 (86) 94 Room Air Capillary Refill : General Appearance: No Apparent Distress, WD/WN, Chronically ill HEENT: PERRL/EOMI, TMs Normal, Normal ENT Inspection, Pharynx Normal Neck: Full Range of Motion, Normal Inspection, Non Tender, Supple, Carotid Bru it Respiratory: Chest Non Tender, Lungs Clear, Normal Breath Sounds, No Accessory Muscle Use, No Respiratory Distress Cardiovascular: Regular Rate, Rhythm, No Edema, No Gallop, No JVD, No Murmur, Normal Peripheral Pulses Gastrointestinal: Normal Bowel Sounds, No Organomegaly, No Pulsatile Mass, Non Tender, Soft Back: Normal Inspection, No CVA Tenderness, No Vertebral Tenderness Extremity: Normal Capillary Refill, Normal Inspection, Normal Range of Motion, Non Tender, No Calf Tenderness, No Pedal Edema Neurologic/Psychiatric: Alert, Normal Mood/Affect, Abnormal 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 FIM Transfers Therapy Code Descriptions/Definitions Functional [place] Measure: 0=Not Assessed/NA 4=Minimal Assistance 1=Total Assistance 5=Supervision or Setup 2=Maximal Assistance 6=Modified [place] 3=Moderate Assistance 7=Complete IndependenceSCALE: Activities may be completed with or without assistive devices. 5-Snfgqrqqjh-zcgohdi completes the activity by him/herself with no assistance from a helper. 5-Set-up or Clean-up Assistance-helper sets up or cleans up; patient completes activity. [place] assists only prior to or following the activity. 4-Supervision or Touching Assistance-helper provides verbal cues and/or touching/steadying and/or contact guard assistance as patient completes activity. Assistance may be provided throughout the activity or intermittently. 3-Partial/Moderate Assistance-helper does LESS THAN HALF the effort. [place] lifts, holds or supports trunk or limbs, but provides less than half the effort. 2-Substantial/Maximal Assistance-helper does MORE THAN HALF the effort. [place] lifts or holds trunk or limbs and provides more than half the effort. 1-Ucbcmuvsb-ublxcl does ALL the effort. Patient does none of the effort to complete the activity. Or, the assistance of 2 or more helpers is required for the patient to complete the activity. If activity was not attempted, code reason: 7-Patient Refused. 9-Not Applicable-not attempted and the patient did not perform the activity before the current illness, exacerbation or injury. 10-Not Attempted due to Environmental Limitations-(lack of equipment, weather restraints, etc.). 88-Not Attempted due to Medical Conditions or Safety Concerns. Roll Left to Right (QC): 3 (verbal and tactile cues to complete) Sit to Lying (QC): 3 (verbal and tactile cues to complete) Sit to Stand (QC): 3 (CGA but pt did not require cues for hand placement. ) Chair/Jni-cx-Ddewp Xfer(QC): 2 (verbal and tactile cues to complete; assist for balacne with turning and assist to manage the walker. ) Car Transfer (QC): 3 (verbal and tactile cues required. ) Gait Training Does the Patient Walk?: Yes Walk 10 feet (QC): 3 (assist for balance and to manage the walker; cues for obstacle avoidance and for sequencing. ) Walk 50 ft with 2 Turns(QC): 3 Walk 150 ft (QC): 88 Walking 10ft/uneven surface-QC: 3 Gait Assistive Device: FWW Wheelchair Training Does the Pt Use a Wheelchair?: Yes Wheel 50 ft with 2 turns (QC): 4 (SBA) Wheel 150 ft (QC): 3 (min assist to achieve this distance;) Type of Wheelchair: Manual Stair Training 1 Step (curb) (QC): 88 (approached step but pt unable to safely attempt.) 4 Steps (QC): 88 12 Steps (QC): 88 Balance Picking up an Object (QC): 88 ADL-Treatment Eating (QC): 5 (Based on clincial judgement, pt would require set up assistance with task.) Oral Hygiene (QC): 3 (Min A, pt required cues to rinse and spit, assist to bring cup to mouth and assist bringing spit tray to mouth. Pt able to use toothbrush and brush gums after OT handed pt toothbrush set up with paste.) Shower/Bathe Self (QC): 1 (Assist x2 in shoemaking cutter order for OT to wash buttocks. Pt able to wash UEs, chest and upper legs but required assistance wtih all parts for thoroughness. Assist to wash lower legs/feet.) Upper Body Dressing (QC): 3 (Mod A, pt able to thread LUE, assist with RUE and moderate cues with task. ) Lower Body Dressing (QC): 3 (Pt able to thread BLEs into pants with cues to initiate, assist with pant hike in standing.) On/Off Footwear (QC): 3 (Min A, pt able to doff bilateral gripper socks, and don LLE sock. Assist to don RLE sock.) Toileting Hygiene (QC): 1 (Based on clinical judgement, pt would require assistance with pant hike and hygiene.) Assessment/Plan Assessment and Plan Assess & Plan/Chief Complaint Assessment: s/p acute ischemic stroke Bilateral carotid stenosis has f/u [address] Sanders CTA revealed bilateral carotid stenosis >70%, chronically occluded right vertebral artery, left vertebral artery stenosis >70% Vertebral artery stenosis/occlusion Impaired vision in both eyes Dementia 03/06 [facility] HTN HLD DVT prophylaxis: Lovenox Chronic debility and non-ambulatory for 2 years per Plan: IRF protocol Wheelchair bound at home Statin Monitor closely 03/29/20: Able to ambulate a lot more today Feels good about progress ST to help with swallowing (1) 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 Status: Acute (2) Carotid stenosis, bilateral Status: Acute (3) Right homonymous hemianopsia due to recent cerebral infarction Status: Acute (4) Vertebral artery stenosis/occlusion Status: Acute (5) Impaired vision in both eyes Status: Acute (6) HLD (hyperlipidemia) Status: Acute (7) HTN (hypertension) Status: Acute AYALA PARKS DO Mar 29, 2020 10:24
--- NOTE | 2020-03-29 10:24 | Individualized Plan of Care ---
Individualized Plan of Care Rehab Nursing IPOC Order Admission Date Mar 28, 2020 at 10:50 Current Orders Orders Admission Order(Inpt,Obs,Sdc) (03/28/20 10:38) Vital Signs: Per Unit Policy ( 08,16,00 (03/28/20 10:38) Jomar Merritt (03/28/20 10:38) Sequential Compression Device Q4H (03/28/20 10:38) Payroll Accounting Manager-Inpt Rehab Con (03/28/20 10:38) Rehab Nursing Orders-Ipoc (03/28/20 10:38) Physical Therapy Rehab Orders (03/28/20 10:38) Occupational Therapy Rehab Ord (03/28/20 10:38) Speech Therapy Rehab Orders (03/28/20 10:38) Cbc With Automated Diff (03/29/20 06:00) Comprehensive Metabolic Panel (03/29/20 06:00) Precautions (Aru) (03/28/20 10:38) Rehab-Intensity Of Therapy (03/28/20 10:38) Initiate Admission Nursing Pro .admission (03/28/20 10:38) Alprazolam Tablet (Xanax Tablet) (03/28/20 10:45) Calcium Carbonate Chew Tablet (Antacid C (03/28/20 10:45) Diphenhydramine Tablet (Benadryl Tablet) (03/28/20 10:45) Docusate Sodium Capsule (Colace Capsule) (03/28/20 21:00) Docusate Sodium Capsule (Colace Capsule) (03/28/20 10:45) Bisacodyl Suppository (Dulcolax Supposit (03/28/20 10:45) Lactulose Oral Solution (Enulose Oral So (03/28/20 10:45) Na Phos/Na Biphos Enema (Fleet Enema Minesh (03/28/20 10:45) Guaifenesin/Codeine Syrup (Robitussin Ac (03/28/20 10:45) Loperamide Tablet (Imodium Tablet) (03/28/20 10:45) Melatonin Tablet (Melatonin Tablet) (03/28/20 10:45) Polyethylene Glycol Powder Pkt (Miralax (03/28/20 21:00) Ondansetron Oral Dissolve Tab (Zofran (03/28/20 10:45) Senna S Tablet (Senokot S Tablet) (03/28/20 21:00) Initiate Admission Nursing Pro .admission (03/28/20 10:38) Admission Arrival Bed Request (03/28/20 10:40) Code/Resuscitation (03/28/20 12:14) Telemetry (03/28/20 12:14) Dys1 Pureed (03/28/20 Lunch) Acetaminophen Tablet/Caplet (Tylenol T (03/28/20 12:15) Atorvastatin Tablet (Lipitor Tablet) (03/28/20 21:00) Carvedilol Tablet (Coreg Tablet) (03/28/20 21:00) Clopidogrel Tablet (Plavix Tablet) (03/29/20 09:00) Lorazepam Injection (Ativan Injection) (03/28/20 12:15) Labetalol Injection (Normodyne Injection (03/28/20 12:15) Ondansetron Injection (Zofran Injectio (03/28/20 12:15) Amlodipine Tablet (Norvasc Tablet) (03/29/20 09:00) Consult Cardiology (03/28/20 12:14) Sequential Compression Device Q4H (03/28/20 12:14) Telemetry Nursing Assessment ( (03/28/20 12:14) Patient Visit (03/28/20 ) Pt Eval Moderate Complexity (03/28/20 ) Functional Activities, Ea 15 (03/28/20 ) Zinc Oxide 16% (Butt Paste) (03/28/20 13:15) Patient Visit (03/28/20 ) Exercise Therap, Ea 15 Min (03/28/20 ) Patient Visit (03/28/20 ) Speech Sound Lang Comp (03/28/20 ) Treat. Speech/Lang/Voice (03/28/20 ) Dysphagia Evaluation Std (03/28/20 ) Dysphagia Therapy (03/28/20 ) Enoxaparin Injection (Lovenox Injection) (03/29/20 09:00) Miconazole 2% Powder (Desenex Af 2% Powd (03/29/20 09:00) Patient Visit (03/29/20 ) Treat. Speech/Lang/Voice (03/29/20 ) Dysphagia Therapy (03/29/20 ) Saline Nasal [place] (Young Nasal [place]) (03/29/20 14:15) Patient Visit (03/29/20 ) Exercise Therap, Ea 15 Min (03/29/20 ) Gait Training, Ea 15 Min (03/29/20 ) Functional Activities, Ea 15 (03/29/20 ) Dys2 Mechanically Altered (03/29/20 Dinner) Rehab Nursing Orders: Ongoing Assess. of Cognitive Status, Ongoing Assess. of Function Status, Bladder Management, Bladder Scan, Bladder Training, Bowel Management, Bowel Training, Disease Management & Educaiton, DVT Prophylaxis, Fall Prevention, Fluid/Electrolyte/Nutrition Mgmt, Infection Prevention, Medication Management & Education, Management of Risks & Complications, Nutrition Management, Pain Management, Patient/Family Support, Safety Management, Swallow Precautions Intensity of Therapy to be met Patient to be seen: Min.3h per day/5 of 7d PT IPOC Problem List: Activity Tolerance, Functional Strength, Safety Treatment Plan: Continue Plan of Care Bed Mobility, Education, Functional Activity Kera, Functional Strength, Group Therapy, Gait, Safety, Therapeutic Exercise, Transfers Treatment Duration: Apr 25, 2020 Frequency: At least 5 of 7 days/Wk (IRF) Estimated Hrs Per Day: 1.5 hours per day OT IPOC Problems: Decreased Activ Tolerance, Decreased Safety Aware, Decreased UE Stren gth, Impaired Cognition, Impaired Funct Balance, Impaired I ADL's, Impaired Self-Care Skills, Restricted Funct UE ROM, Visual-Perceptual Deficit OT Treatment, Training and Edu: Yes Plan of Care: ADL Retraining, Functional Mobility, Group Exercise/Act as Ind, UE Funct Exercise/Act, UE Neuromus Re-Ed/Coord, Visual/Perceptual Retrain, W/C Management Training Treatment Duration: Apr 26, 2020 Frequency: At least 5 of 7 days/Wk (IRF) Estimated Hrs Per Day: 1.[address] IPOC Speech Therapy Treatment Plan: Continue Plan of Care Treatment Duration: Apr 12, 2020 Frequency: 4 times per week (Patient will receive skilled ST 4-5x per week) Estimated Hrs Per Day: .5 hour per day Payroll Accounting Manager/Case Mgmt Payroll Accounting Manager/Case Managemen: Discharge Planning Dietitian/Animal Rescuer Dietitian/Animal Rescuer to monitor nutritional status and make changes and/or recommendations as needed and work with speech pathology on dietary upgrades as the occur. Physician IPOC Medical Issues being managed closely and that require the 24 hour availability of a physician: Recent CVA with significant deficits will require close monitoring for any extension of the stroke and monitor for any elevated BP. Medical Issues: Bowel/Bladder Function, DVT Prophylaxis, Falls Precautions, Fluid/Electrolyte/Nutrition Balance, Infection Protection, Pain Management Brief Synthesis of Preadmission Screen, Post-Admission Evaluation, and Therapy Evaluations: PT OT ST will all focus on regaining function from chronic debility while focusing on the new deficits from the CVA in order to increase ambulation with fall risk prevention along with increasing ADL independence and swallowing safely. Medical Prognosis: Good Anticipated Length of Stay: 10 days AYALA PARKS DO Mar 29, 2020 10:24
--- NOTE | 2020-03-29 11:09 | Occupational Ther Daily Note ---
OT Current Status-Daily Note Subjective upon entering room, OT asked if pt remembered her and he responded with a yes, but when asked to answer who she was, he did not know. During a almanza bag activity, OT asked if pt could see the colors of the almanza bags, pt responded with yes, but when asked what color of almanza bag was in his hand, he did not know the color. Mental Status/Objective Patient Orientation: Confused Attachments: Telemetry Pt unable to provide year he was born, his age, where he was at. OT attempted to reorient pt with year he was born and tomorrow being his birthday, pt acted surprised and replied "I don't know". ADL-Treatment Therapy Code Descriptions/Definitions Functional [place] Measure: 0=Not Assessed/NA 4=Minimal Assistance 1=Total Assistance 5=Supervision or Setup 2=Maximal Assistance 6=Modified [place] 3=Moderate Assistance 7=Complete IndependenceSCALE: Activities may be completed with or without assistive devices. 7-Riefvqmqls-edtincv completes the activity by him/herself with no assistance from a helper. 5-Set-up or Clean-up Assistance-helper sets up or cleans up; patient completes activity. [place] assists only prior to or following the activity. 4-Supervision or Touching Assistance-helper provides verbal cues and/or touching/steadying and/or contact guard assistance as patient completes activity. Assistance may be provided throughout the activity or intermittently. 3-Partial/Moderate Assistance-helper does LESS THAN HALF the effort. [place] lifts, holds or supports trunk or limbs, but provides less than half the effort. 2-Substantial/Maximal Assistance-helper does MORE THAN HALF the effort. [place] lifts or holds trunk or limbs and provides more than half the effort. 5-Ewnqbwxch-qxyryh does ALL the effort. Patient does none of the effort to complete the activity. Or, the assistance of 2 or more helpers is required for the patient to complete the activity. If activity was not attempted, code reason: 7-Patient Refused. 9-Not Applicable-not attempted and the patient did not perform the activity before the current illness, exacerbation or injury. 10-Not Attempted due to Environmental Limitations-(lack of equipment, weather restraints, etc.). 88-Not Attempted due to Medical Conditions or Safety Concerns. Upper Body Dressing (QC): 3 (Trudi, pt able to thread arms and head through shirt, assistance needed to adjust down trunk) Lower Body Dressing (QC): 1 (Assist x2. for pants hike while standing for unsteady standing balance. Pt needed assistance on telling front to back, but when shown tag, pt was able to thread both legs through pants. Assist RLE into brief.) Other Treatment Pt began laying in bed at beginning of tx then transferred to B. Pt stated that his brief was wet, so pt stood to doff brief with needing a reminder to pull down brief on R side. Pt able to thread LLE through new brief with assistance RLE and to pull up on his R side. Pt retropulsive with stand required moderate balance assistance. Pt then transferred to w/c with FWW at [facility] for cuing to take steps with his R side, and cues to turn head to find chair. Pt propelled self to therapy gym with frequent reminders to scan his R side for obstacles. Once in gym, pt did arm bike exercise for bilateral integration and to increase activity tolerance for 10min. Pt's removed R hand multiple times from bar to scratch face, required assistance with placing hand back on handle. Pt attempted to place pegs into pegboard but pt could not see hole in peg board. OT placed 25 pegs in peg board and asked pt to take them out. Upon taking out pegs, pt needed cues to scan to his R side to find the bucket of pegs. After OT noticed pt remembered where the bucket was, OT began to move the bucket of pegs around on his R side and ask pt to scan for the bucket. Pt needed constant cues to continue to scan for the bucket. Pt then proceed to a almanza bag activity where pt had to scan his R side and find certain almanza bag. Pt was asked at the beginning if he could see the colors, pt responded with a yes, but when asked to find a certain color, pt stated he could not identify the colors. OT asked pt what color of almanza bag he was holding and pt stated "I don't know". OT asked the pt to find any almanza bags and place them in the basket to his R. Pt needed constant cues to turn his head to the R and find the basket. Pt then propelled self around commons area, with frequent cues to scan R side for obstacles. Pt propelled self to his room and [facility] at [place]. Pt was left in recliner with call light on L side, chair alarm on and all need met. Education OT Patient Education: Correct positioning, Modified ADL techniques, Progress toward Goal/Update tx plan, Purpose of tx/functional activities, Safety issues, W/C management Teaching Recipient: Patient Teaching Methods: Demonstration Response to Teaching: Unable to Comprehend, Reinforcement Needed OT Short Term Goals Short Term Goals Time Frame: Apr 19, 2020 Oral hygiene: 5 Toileting hygiene: 3 Shower/bathe self: 3 Upper body dressin Lower body dressin OT Custodial Goals Clinical Orthoptist Goals Time Frame: Apr 26, 2020 Eating (QC): 6 Oral Hygiene (QC): 6 Toileting Hygiene (QC): 6 Shower/Bathe Self (QC): 4 Upper Body Dressing (QC): 5 Lower Body Dressing (QC): 5 On/Off Footwear (QC): 5 Additional Goals: 1-Demonstrate ADL Tasks, 2-Verbalize Understanding, 3- ImproveStrength/Kera 1=Demonstrate adherence to instructed precautions during ADL tasks. 2=Patient will verbalize/demonstrate understanding of assistive devices/modifications for ADL. 3=Patient will improve strength/tolerance for activity to enable patient to perform ADL's. OT Education/Plan Problem List/Assessment Assessment: Decreased Safety Aware, Impaired Cognition, Impaired Funct Balance, Impaired I ADL's, Impaired Self-Care Skills, Visual-Perceptual Deficit Discharge Recommendations Plan/Recommendations: Continue POC Treatment Plan/Plan of Care Patient would benefit from OT for education, treatment and training to promote independence in ADL's, mobility, safety and/or upper extremity function for ADL's. Plan of Care: ADL Retraining, Functional Mobility, Group Exercise/Act as Ind, UE Funct Exercise/Act, UE Neuromus Re-Ed/Coord, Visual/Perceptual Retrain, W/C Management Training Treatment Duration: Apr 26, 2020 Frequency: At least 5 of 7 days/Wk (IRF) Estimated Hrs Per Day: 1.5 hours per day Agreement: Yes Rehab Potential: Fair Time/GCodes Start Time: 10:00 Stop Time: 11:00 Total Time Billed (hr/min): 60 Billed Treatment Time 1, ADL (10'), EX (10'), FA 2 (40') LUCILLE PACE OT Mar 29, 2020 11:09
--- NOTE | 2020-03-29 11:59 | Physical Therapy Daily Note ---
PT Daily Note-Current Subjective Pt. agreeable to Rx with encouragement. Pt. with confusion/ difficulty expressing self at times Pain Location: No Pain Reported Mental Status Patient Orientation: Non-Verbal/Aphasic Transfers SCALE: Activities may be completed with or without assistive devices. 5-Jwvzgvokni-sqdqwja completes the activity by him/herself with no assistance from a helper. 5-Set-up or Clean-up Assistance-helper sets up or cleans up; patient completes activity. [place] assists only prior to or following the activity. 4-Supervision or Touching Assistance-helper provides verbal cues and/or touchin g/steadying and/or contact guard assistance as patient completes activity. Assistance may be provided throughout the activity or intermittently. 3-Partial/Moderate Assistance-helper does LESS THAN HALF the effort. [place] lifts, holds or supports trunk or limbs, but provides less than half the effort. 2-Substantial/Maximal Assistance-helper does MORE THAN HALF the effort. [place] lifts or holds trunk or limbs and provides more than half the effort. 3-Dszburvkk-pwnhbb does ALL the effort. Patient does none of the effort to complete the activity. Or, the assistance of 2 or more helpers is required for the patient to complete the activity. If activity was not attempted, code reason: 7-Patient Refused. 9-Not Applicable-not attempted and the patient did not perform the activity before the current illness, exacerbation or injury. 10-Not Attempted due to Environmental Limitations-(lack of equipment, weather restraints, etc.). 88-Not Attempted due to Medical Conditions or Safety Concerns. Roll Left & Right (QC): 6 Sit to Lying (QC): 5 Lying to Sitting/Side of Bed(Q: 5 Sit to Stand (QC): 4 Chair/Pmp-gw-Vpfoj Xfer(QC): 4 needs direction and min to CGA for all mobility Gait Training Does the Patient Walk?: Yes Walk 10 feet (QC): 4 Walk 50 ft with 2 Turns(QC): 4 Gait Persons Needed: 1 Gait Assistive Device: FWW needs directed for GORGE and step length, w/c close behind, assist to steer FWW at times Wheelchair Training Does the Pt Use a Wheelchair?: Yes Wheel 50 ft with 2 turns (QC): 4 Type of Wheelchair: Manual uses UEs and LEs to propel w/c , needs guided to goal Exercises Supine Ex: Bridging, Ankle pumps, Quad Set, Rolling, Glut sets, Heel Slides, Scooting, Straight leg raise, Hip abd/add Supine Reps: 20 Seated Therapy Exercises: Ankle pumps, Sit to stand, Long arc quads, Hip flexion Seated Reps: 15 NuStep Minutes: 8 NuStep Workload: 2 Treatments at times pt. does not give effort and needed near mod assist for TRF SPT, was mixed in expressing self well. needed repeated instruction at times Assessment Current Status: Good Progress PT Short Term Goals Short Term Goals Time Frame: Apr 11, 2020 Roll Left & Right: 5 Sit to lyin Lying to sitting on side of be: 5 Sit to stand: 4 Chair/rpz-rh-fxhnb transfer: 4 Walk 10 feet: 4 Walk 50 feet with two turns: 3 PT Certified Prosthetist/Orthotist Goals Care Home Goals PT Certified Prosthetist/Orthotist Goals Time Frame: Apr 25, 2020 Roll Left & Right (QC): 6 Sit to Lying (QC): 6 Lying-Sitting on Side/Bed(QC): 6 Sit to Stand (QC): 6 Chair/Ovh-sp-Ihduc Xfer(QC): 6 Toilet Transfer (QC): 6 Car Transfer (QC): 4 Does the Patient Walk: Yes Walk 10 feet (QC): 4 Walk 50ft with 2 Turns (QC): 4 Walk 150 ft (QC): 9 Walking 10ft on Uneven Surface: 3 1 Step (curb) (QC): 3 4 Steps (QC): 9 12 Steps (QC): 9 Picking up an Object (QC): 9 Does the Pt use WC or Scooter?: Yes Wheel 50 feet with 2 turns (QC: 6 Type: Manual Wheel 150 feet: 6 Type: Manual PT Plan Treatment/Plan Treatment Plan: Continue Plan of Care Treatment Plan: Bed Mobility, Education, Functional Activity Kera, Functional Strength, Group Therapy, Gait, Safety, Therapeutic Exercise, Transfers Treatment Duration: Apr 25, 2020 Frequency: At least 5 of 7 days/Wk (IRF) Estimated Hrs Per Day: 1.5 hours per day Patient and/or Family Agrees t: Yes Safety Risks/Education Patient Education: Gait Training, Transfer Techniques, Correct Positioning, W/C Management, Disease Process, Safety Issues Teaching Recipient: Patient Teaching Methods: Demonstration, Discussion Response to Teaching: Verbalize Understanding, Return Demonstration, Reinforcement Needed Time/GCodes Time In: 1100 Time Out: 1200 Total Billed Treatment Time: 60 Total Billed Treatment EX35m,GT15m,FA10m JULIANN WITT SHADE MAKER Mar 29, 2020 11:59
--- NOTE | 2020-03-29 13:16 | Speech Therapy Daily Note ---
Speech Daily Progress Note Subjective Date Seen by Provider: Mar 29, 2020 Time Seen by Provider: 00:30 Patient was finishing up his lunch when I entered his room. Patient completed session with ST. Objective Patient completed trials of mechanical soft without difficulty. Patient will be upgraded this date to Dysphagia II diet with nectar consistency liquids. Assessment Assessment Current Status: Good Progress Treatment Plan Continue Plan of Care Speech Short Term Goals Short Term Goals Short Term Goals 1) Patient will complete memory tasks related to his daily needs with 80% accuracy given minimal cues. 2) Patient will complete tasks safety awareness to his daily needs with 80% accuracy given minimal cues. 3) Patient will complete problem solving tasks related to his daily needs with 80% accuracy given minimal cues. 4) Patient will tolerate least restrictive diet level without s/s of aspiration at 80% with minimal cues. 5) Patient/caregiver will utilize compensatory strategies as trained at 90% with minimal cues. Speech Mobile Game Engineer Goals Jail Goals Patient will improve cognitive-communication abilities in order to complete daily tasks with decreased assistance. Patient will maintain adequate nutrition/hydration via safe effective swallow function. Speech-Plan Patient/Family Goals Patient/Family Goals: Patient plans on returning to his home where he lives with his . Treatment Plan Speech Therapy Treatment Plan: Continue Plan of Care Treatment Duration: Apr 12, 2020 Frequency: 4 times per week (Patient will receive skilled ST 4-5x per week) Estimated Hrs Per Day: .5 hour per day Rehab Potential: Fair Barriers to Learning: Patient's recent CVA, decreased expressive language. Pt/Family Agrees to Plan: Yes Safety Risks/Education Teaching Recipient: Patient Teaching Methods: Demonstration, Discussion Response to Teaching: Verbalize Understanding, Return Demonstration Education Topics Provided: Continued safety within his room, continued safety with oral intake Time Speech Therapy Time In: 12:45 Speech Therapy Time Out: 13:15 Total Billed Time: 30 Billed Treatment Time 1, SLHEATHER, HOLDEN Cruz Mar 29, 2020 13:16
--- NOTE | 2020-03-29 14:07 | Occupational Ther Daily Note ---
OT Current Status-Daily Note Subjective Pt seated in recliner. OT asked pt if he remembered her from this morning and he stated that he does, but when asked who she was, pt states that he doesn't know. Mental Status/Objective Patient Orientation: Confused ADL-Treatment Therapy Code Descriptions/Definitions Functional [place] Measure: 0=Not Assessed/NA 4=Minimal Assistance 1=Total Assistance 5=Supervision or Setup 2=Maximal Assistance 6=Modified [place] 3=Moderate Assistance 7=Complete IndependenceSCALE: Activities may be completed with or without assistive devices. 2-Pecdtrqtuv-ambymwj completes the activity by him/herself with no assistance from a helper. 5-Set-up or Clean-up Assistance-helper sets up or cleans up; patient completes activity. [place] assists only prior to or following the activity. 4-Supervision or Touching Assistance-helper provides verbal cues and/or touching/steadying and/or contact guard assistance as patient completes act ivity. Assistance may be provided throughout the activity or intermittently. 3-Partial/Moderate Assistance-helper does LESS THAN HALF the effort. [place] lifts, holds or supports trunk or limbs, but provides less than half the effort. 2-Substantial/Maximal Assistance-helper does MORE THAN HALF the effort. [place] lifts or holds trunk or limbs and provides more than half the effort. 2-Lzxdtfqeb-xrtfre does ALL the effort. Patient does none of the effort to complete the activity. Or, the assistance of 2 or more helpers is required for the patient to complete the activity. If activity was not attempted, code reason: 7-Patient Refused. 9-Not Applicable-not attempted and the patient did not perform the activity before the current illness, exacerbation or injury. 10-Not Attempted due to Environmental Limitations-(lack of equipment, weather restraints, etc.). 88-Not Attempted due to Medical Conditions or Safety Concerns. Other Treatment Pt participated in low resistance theraband exercises in recliner with 15x each. Pt proceeded through B shoulder flexion, elbow flexion(biceps), elbow extension(triceps), and horizontal abduction. OT gave demonstration of each exercise and provided hand over hand when needed. After OT demonstrated one of the exercises, pt states that it would be easier for him to do the exercise if he knew what he was doing. OT informs him that she can do the exercise again, but pt declines the demonstration. He proceeded to do the exercise without another demonstration. After final exercise, pt states that he would like to lay down in bed. Pt transfers from recliner to bed using FWW. Pt needed cues to turn body more towards the bed and cues for hand placement. Pt was left in bed with call light on L side and all needs met. Bed alarm on. Education OT Patient Education: Exercise program, Modified ADL techniques, Progress toward Goal/Update tx plan, Purpose of tx/functional activities, Safety issues, Transfer techniques Teaching Recipient: Patient Teaching Methods: Demonstration, Discussion Response to Teaching: Unable to Comprehend, Reinforcement Needed OT Short Term Goals Short Term Goals Time Frame: Apr 19, 2020 Oral hygiene: 5 Toileting hygiene: 3 Shower/bathe self: 3 Upper body dressin Lower body dressin OT Skilled Nursing Goals Reactor Fueling Supervisor Goals Time Frame: Apr 26, 2020 Eating (QC): 6 Oral Hygiene (QC): 6 Toileting Hygiene (QC): 6 Shower/Bathe Self (QC): 4 Upper Body Dressing (QC): 5 Lower Body Dressing (QC): 5 On/Off Footwear (QC): 5 Additional Goals: 1-Demonstrate ADL Tasks, 2-Verbalize Understanding, 3- ImproveStrength/Kera 1=Demonstrate adherence to instructed precautions during ADL tasks. 2=Patient will verbalize/demonstrate understanding of assistive devices/modifications for ADL. 3=Patient will improve strength/tolerance for activity to enable patient to perform ADL's. OT Education/Plan Problem List/Assessment Assessment: Decreased Activ Tolerance, Decreased UE Strength, Impaired I ADL's, Impaired Self-Care Skills, Restricted Funct UE ROM, Visual-Perceptual Deficit Discharge Recommendations Plan/Recommendations: Continue POC Treatment Plan/Plan of Care Patient would benefit from OT for education, treatment and training to promote independence in ADL's, mobility, safety and/or upper extremity function for ADL's. Plan of Care: ADL Retraining, Functional Mobility, Group Exercise/Act as Ind, UE Funct Exercise/Act, UE Neuromus Re-Ed/Coord, Visual/Perceptual Retrain, W/C Management Training Treatment Duration: Apr 26, 2020 Frequency: At least 5 of 7 days/Wk (IRF) Estimated Hrs Per Day: 1.5 hours per day Agreement: Yes Rehab Potential: Fair Time/GCodes Start Time: 13:15 Stop Time: 13:30 Total Time Billed (hr/min): 15 Billed Treatment Time 1, EX (15') LUCILLE PACE OT Mar 29, 2020 14:07
--- NOTE | 2020-03-29 14:36 | Physical Therapy Daily Note ---
PT Daily Note-Current Transfers SCALE: Activities may be completed with or without assistive devices. 5-Rclkpfrlzi-pzijuvz completes the activity by him/herself with no assistance from a helper. 5-Set-up or Clean-up Assistance-helper sets up or cleans up; patient completes activity. [place] assists only prior to or following the activity. 4-Supervision or Touching Assistance-helper provides verbal cues and/or touching/steadying and/or contact guard assistance as patient completes activity. Assistance may be provided throughout the activity or intermittently. 3-Partial/Moderate Assistance-helper does LESS THAN HALF the effort. [place] lifts, holds or supports trunk or limbs, but provides less than half the effort. 2-Substantial/Maximal Assistance-helper does MORE THAN HALF the effort. [place] lifts or holds trunk or limbs and provides more than half the effort. 9-Ezdzvhgfj-hfyyvg does ALL the effort. Patient does none of the effort to complete the activity. Or, the assistance of 2 or more helpers is required for the patient to complete the activity. If activity was not attempted, code reason: 7-Patient Refused. 9-Not Applicable-not attempted and the patient did not perform the activity before the current illness, exacerbation or injury. 10-Not Attempted due to Environmental Limitations-(lack of equipment, weather restraints, etc.). 88-Not Attempted due to Medical Conditions or Safety Concerns. PT Short Term Goals Short Term Goals Time Frame: Apr 11, 2020 Roll Left & Right: 5 Sit to lyin Lying to sitting on side of be: 5 Sit to stand: 4 Chair/uwq-xv-figyf transfer: 4 Walk 10 feet: 4 Walk 50 feet with two turns: 3 PT Sample Selector Goals Residential Goals PT Residential Goals Time Frame: Apr 25, 2020 Roll Left & Right (QC): 6 Sit to Lying (QC): 6 Lying-Sitting on Side/Bed(QC): 6 Sit to Stand (QC): 6 Chair/Ady-yh-Ywpmt Xfer(QC): 6 Toilet Transfer (QC): 6 Car Transfer (QC): 4 Does the Patient Walk: Yes Walk 10 feet (QC): 4 Walk 50ft with 2 Turns (QC): 4 Walk 150 ft (QC): 9 Walking 10ft on Uneven Surface: 3 1 Step (curb) (QC): 3 4 Steps (QC): 9 12 Steps (QC): 9 Picking up an Object (QC): 9 Does the Pt use WC or Scooter?: Yes Wheel 50 feet with 2 turns (QC: 6 Type: Manual Wheel 150 feet: 6 Type: Manual PT Plan Treatment/Plan Treatment Plan: Bed Mobility, Education, Functional Activity [place], Functional Strength, Group Therapy, Gait, Safety, Therapeutic Exercise, Transfers Treatment Duration: Apr 25, 2020 Frequency: At least 5 of 7 days/Wk (IRF) Estimated Hrs Per Day: 1.5 hours per day Patient and/or Family Agrees t: Yes JULIANN WITT AUTOMOBILE BODY REPAIR SUPERVISOR Mar 29, 2020 14:36
--- NOTE | 2020-03-29 15:50 | NUR ---
"RD ASSESSMENT PMHx: dementia; current - CVA deficits; PT INTERACTION: Pt was awake and pleasant during nutrition consult for MST score. Note pt has hx of dementia and is a poor historian, per chart review. Pt states current appetite is getting better. Note avg PO intake 63% x2meal, per chart review. Pt states following a regular diet at home, and has no issues with chewing/swallowing food. Note pt currently on DYS1 Pureed diet, per chart review. Pt states no recent issues with n/v/c/d. Note last BM was 03/29, and pt currently on bowel regimen of colace BID, senna BID, and miralax BID, per chart review. Pt states no recent wt changes. Note unable to determine recent wt hx, per chart review. Upon visual assessment, pt appears adequately nourished with a BMI of 25.7. Given PO intake, wt hx, and visual assessment, pt does not meet criteria for malnutrition per ASPEN guidelines. Est. kcal needs: 2231-2193 kcal | 20-25 kcal/kg Est. Pro needs: 69-86 g Pro | 0.8-1.0 g Pro/kg PES STATEMENT: Inadequate oral intake (NI-2.1) related to loss of appetite, as evidenced by pt interview, and avg PO intake 63% x2meal. INTERVENTION: Continue with current diet order of DYS1 Pureed diet, with modifier of [place] Thick liquids. Pt may benefit from nutrition supplementation if PO intake declines. Will continue to follow and reassess as pt needs, intake, and status change. Magui GREEN, MS RD LD [phone] cell"
[2020-03-29 16:19] VITALS: BP 118/79
[2020-03-29] MEDS ORDERED: CLOP75TA69 PO (16:25)
[2020-03-29] MEDS ORDERED: ATOR80TA76 PO (16:25)
[2020-03-29] MEDS ORDERED: AMLO-251 PO (16:29)
[2020-03-29] MEDS ORDERED: CARV12.52 PO (16:29)
[2020-03-29] MEDS: MICONAZOLE 2% POWDER (DESENEX AF) 90 GM TOP SCH ×2 (16:56→20:43)
[2020-03-30 05:02] VITALS: BP 126/67
--- NOTE | 2020-03-30 05:56 | PM&R Progress Note ---
Subjective HPI/CC On Admission Date Seen by Provider: Mar 30, 2020 Time Seen by Provider: 13:30 Subjective/Events-last exam 03/30/20: Up in chair today Incontinent now Dysphagia 2 diet tolerated Did not eat lunch Sleepy Vision changes are profound 03/29/20: Patient seems to be progressing very well Able to walk farther today Seems more alert and less confused today Outperforming with therapy today No pain reported ST working with him for swallowing and cognition Checked meds and labs Review of Systems General: Fatigue, Malaise HEENT: Visual Changes Genitourinary: Incontinence Neurological: Change in speech Objective Exam Vital Signs Vital Signs Date Time Temp Pulse Resp B/P (MAP) Pulse Ox O2 Delivery O2 Flow Rate FiO2 03/31/20 05:03 37.0 63 16 129/69 (89) 93 Room Air Capillary Refill : General Appearance: No Apparent Distress, WD/WN, Chronically ill HEENT: PERRL/EOMI, TMs Normal, Normal ENT Inspection, Pharynx Normal Neck: Full Range of Motion, Normal Inspection, Non Tender, Supple, Carotid Bruit Respiratory: Chest Non Tender, Lungs Clear, Normal Breath Sounds, No Accessory Muscle Use, No Respiratory Distress Cardiovascular: Regular Rate, Rhythm, No Edema, No Gallop, No JVD, No Murmur, Normal Peripheral Pulses Gastrointestinal: Normal Bowel Sounds, No Organomegaly, No Pulsatile Mass, Non Tender, Soft Back: Normal Inspection, No CVA Tenderness, No Vertebral Tenderness Extremity: Normal Capillary Refill, Normal Inspection, Normal Range of Motion, Non Tender, No Calf Tenderness, No Pedal Edema Neurologic/Psychiatric: Alert, Normal Mood/Affect, Abnormal machine maintenance mechanic II-XII, Abnorma l Gait, Disoriented, Motor Weakness (generalized weakness 3/5 arms 2/5 legs but right sided neglect noted) Skin: Normal Color, Warm/Dry Lymphatic: No Adenopathy Results/Procedures Lab Patient resulted labs reviewed. FIM Transfers Therapy Code Descriptions/Definitions Functional [place] Measure: 0=Not Assessed/NA 4=Minimal Assistance 1=Total Assistance 5=Supervision or Setup 2=Maximal Assistance 6=Modified [place] 3=Moderate Assistance 7=Complete IndependenceSCALE: Activities may be completed with or without assistive devices. 8-Llngmeqoly-surkmqu completes the activity by him/herself with no assistance from a helper. 5-Set-up or Clean-up Assistance-helper sets up or cleans up; patient completes activity. [place] assists only prior to or following the activity. 4-Supervision or Touching Assistance-helper provides verbal cues and/or touching/steadying and/or contact guard assistance as patient completes activity. Assistance may be provided throughout the activity or intermittently. 3-Partial/Moderate Assistance-helper does LESS THAN HALF the effort. [place] lifts, holds or supports trunk or limbs, but provides less than half the effort. 2-Substantial/Maximal Assistance-helper does MORE THAN HALF the effort. [place] lifts or holds trunk or limbs and provides more than half the effort. 2-Nvhxcurml-lcxgno does ALL the effort. Patient does none of the effort to complete the activity. Or, the assistance of 2 or more helpers is required for the patient to complete the activity. If activity was not attempted, code reason: 7-Patient Refused. 9-Not Applicable-not attempted and the patient did not perform the activity before the current illness, exacerbation or injury. 10-Not Attempted due to Environmental Limitations-(lack of equipment, weather restraints, etc.). 88-Not Attempted due to Medical Conditions or Safety Concerns. Roll Left to Right (QC): 6 Sit to Lying (QC): 5 Sit to Stand (QC): 4 Chair/Xlk-qz-Wrgeu Xfer(QC): 4 Car Transfer (QC): 3 (verbal and tactile cues required. ) Gait Training Does the Patient Walk?: Yes Walk 10 feet (QC): 4 Walk 50 ft with 2 Turns(QC): 4 Walk 150 ft (QC): 88 Walking 10ft/uneven surface-QC: 3 Gait Persons Needed: 1 Gait Assistive Device: FWW Wheelchair Training Does the Pt Use a Wheelchair?: Yes Wheel 50 ft with 2 turns (QC): 4 Wheel 150 ft (QC): 3 (min assist to achieve this distance;) Type of Wheelchair: Manual Stair Training 1 Step (curb) (QC): 88 (approached step but pt unable to safely attempt.) 4 Steps (QC): 88 12 Steps (QC): 88 Balance Picking up an Object (QC): 88 ADL-Treatment Eating (QC): 5 (Based on clincial judgement, pt would require set up assistance with task.) Oral Hygiene (QC): 3 (Min A, pt required cues to rinse and spit, assist to bring cup to mouth and assist bringing spit tray to mouth. Pt able to use toothbrush and brush gums after OT handed pt toothbrush set up with paste.) Shower/Bathe Self (QC): 1 (Assist x2 in reordering clerk order for OT to wash buttocks. Pt able to wash UEs, chest and upper legs but required assistance wtih all parts for thoroughness. Assist to wash lower legs/feet.) Upper Body Dressing (QC): 3 (Trudi, pt able to thread arms and head through shirt, assistance needed to adjust down trunk) Lower Body Dressing (QC): 1 (Assist x2. for pants hike while standing for unsteady standing balance. Pt needed assistance on telling front to back, but when shown tag, pt was able to thread both legs through pants. Assist RLE into brief.) On/Off Footwear (QC): 3 (Min A, pt able to doff bilateral gripper socks, and don LLE sock. Assist to don RLE sock.) Toileting Hygiene (QC): 1 (Based on clinical judgement, pt would require assistance with pant hike and hygiene.) Assessment/Plan Assessment and Plan Assess & Plan/Chief Complaint Assessment: s/p acute ischemic stroke Bilateral carotid stenosis has f/u [address] Sanders CTA revealed bilateral carotid stenosis >70%, chronically occluded right vertebral artery, left vertebral artery stenosis >70% Vertebral artery stenosis/occlusion Impaired vision in both eyes Dementia 03/06 [facility] HTN HLD DVT prophylaxis: Lovenox Chronic debility and non-ambulatory for 2 years per Plan: IRF protocol Wheelchair bound at home Statin Monitor closely 03/29/20: Able to ambulate a lot more today Feels good about progress ST to help with swallowing 03/30/20: Advanced diet Incontinence care Vision issues (1) 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 Status: Acute (2) Carotid stenosis, bilateral Status: Acute (3) Right homonymous hemianopsia due to recent cerebral infarction Status: Acute (4) Vertebral artery stenosis/occlusion Status: Acute (5) Impaired vision in both eyes Status: Acute (6) HLD (hyperlipidemia) Status: Acute (7) HTN (hypertension) Status: Acute AYALA PARKS DO Mar 30, 2020 05:56
[2020-03-30] MEDS: DOCUSATE SODIUM 100 MG (COLACE) CAP PO SCH ×2 (08:11→20:58)
[2020-03-30] MEDS: ENOXAPARIN 40 MG/0.4 ML (LOVENOX) SYR SC SCH (08:11)
[2020-03-30] MEDS: CARVEDILOL 12.5 MG (COREG) TABLET PO SCH ×2 (08:11→20:57)
[2020-03-30] MEDS: CLOPIDOGREL 75 MG (PLAVIX) TABLET PO SCH (08:11)
[2020-03-30] MEDS: amLODIPine 10 MG (NORVASC) TAB PO SCH (08:11)
[2020-03-30] MEDS: SENNA W/DOCUSATE (SENOKOT S) TABLET PO SCH ×2 (08:11→20:59)
[2020-03-30] MEDS: polyethylene glycoL POWDER 17 GM (MIRALAX) PACK PO SCH ×2 (08:11→20:59)
[2020-03-30] MEDS: MICONAZOLE 2% POWDER (DESENEX AF) 90 GM TOP SCH ×2 (08:13→20:58)
[2020-03-30] MEDS: ZINC OXIDE 16% OINT (BUTT PASTE) 57 GM TUBE TOP SCH ×2 (08:13→20:59)
[2020-03-30 08:17] VITALS: BP 116/76
--- NOTE | 2020-03-30 11:32 | Physical Therapy Daily Note ---
PT Daily Note-Current Subjective Agrees to PT. Initiates conversation and answers questions appropriately. Mental Status Patient Orientation: Person, Place, Time, Situation Transfers SCALE: Activities may be completed with or without assistive devices. 2-Zoyiyxbbyb-bwikwlb completes the activity by him/herself with no assistance from a helper. 5-Set-up or Clean-up Assistance-helper sets up or cleans up; patient completes activity. [place] assists only prior to or following the activity. 4-Supervision or Touching Assistance-helper provides verbal cues and/or touching/steadying and/or contact guard assistance as patient completes activity. Assistance may be provided throughout the activity or intermittently. 3-Partial/Moderate Assistance-helper does LESS THAN HALF the effort. [place] lifts, holds or supports trunk or limbs, but provides less than half the effort. 2-Substantial/Maximal Assistance-helper does MORE THAN HALF the effort. [place] lifts or holds trunk or limbs and provides more than half the effort. 0-Kpngrbgac-cghqiq does ALL the effort. Patient does none of the effort to complete the activity. Or, the assistance of 2 or more helpers is required for the patient to complete the activity. If activity was not attempted, code reason: 7-Patient Refused. 9-Not Applicable-not attempted and the patient did not perform the activity before the current illness, exacerbation or injury. 10-Not Attempted due to Environmental Limitations-(lack of equipment, weather restraints, etc.). 88-Not Attempted due to Medical Conditions or Safety Concerns. Lying to Sitting/Side of Bed(Q: 4 Sit to Stand (QC): 4 (CGa with cues for hand placement.) Chair/Ffm-pz-Olyat Xfer(QC): 4 Pt walked x 5 ft bed to chair with FWW with CGA. Exercises Seated Therapy Exercises: Ankle pumps, Sit to stand, Long arc quads, Hip flexion, Hip abd/add, Glut set Seated Reps: 10 (Fct strength training to progress transfers and gait. ) Assessment Current Status: Good Progress Improved interaction this date and improved transfers and safety. PT Short Term Goals Short Term Goals Time Frame: Apr 11, 2020 Roll Left & Right: 5 Sit to lyin Lying to sitting on side of be: 5 Sit to stand: 4 Chair/scj-wi-spksg transfer: 4 Walk 10 feet: 4 Walk 50 feet with two turns: 3 PT Fdc Goals Fdc Goals PT Trash Man Goals Time Frame: Apr 25, 2020 Roll Left & Right (QC): 6 Sit to Lying (QC): 6 Lying-Sitting on Side/Bed(QC): 6 Sit to Stand (QC): 6 Chair/Hoz-ly-Nchxq Xfer(QC): 6 Toilet Transfer (QC): 6 Car Transfer (QC): 4 Does the Patient Walk: Yes Walk 10 feet (QC): 4 Walk 50ft with 2 Turns (QC): 4 Walk 150 ft (QC): 9 Walking 10ft on Uneven Surface: 3 1 Step (curb) (QC): 3 4 Steps (QC): 9 12 Steps (QC): 9 Picking up an Object (QC): 9 Does the Pt use WC or Scooter?: Yes Wheel 50 feet with 2 turns (QC: 6 Type: Manual Wheel 150 feet: 6 Type: Manual PT Plan Problem List Problem List: Activity Tolerance, Functional Strength, Safety, Balance, Gait, Transfer, Bed Mobility Treatment/Plan Treatment Plan: Continue Plan of Care Treatment Plan: Bed Mobility, Education, Functional Activity [place], Functional Strength, Group Therapy, Gait, Safety, Therapeutic Exercise, Transfers Treatment Duration: Apr 25, 2020 Frequency: At least 5 of 7 days/Wk (IRF) Estimated Hrs Per Day: 1.5 hours per day Patient and/or Family Agrees t: Yes Safety Risks/Education Patient Education: Transfer Techniques Teaching Recipient: Patient Teaching Methods: Demonstration, Discussion Response to Teaching: Reinforcement Needed Time/GCodes Time In: 850 Time Out: 906 Total Billed Treatment Time: 16 Total Billed Treatment visit FA 16 JANNET FRIAS PT Mar 30, 2020 11:32
[2020-03-30] MEDS: SALINE NASAL SPRAY (OCEAN) 45 ML BTL SCH ×3 (14:00→20:58)
[2020-03-30 17:39] VITALS: BP 131/71
[2020-03-31 05:03] VITALS: BP 129/69
[2020-03-31] MEDS: CLOPIDOGREL 75 MG (PLAVIX) TABLET PO SCH (09:28)
[2020-03-31] MEDS: ENOXAPARIN 40 MG/0.4 ML (LOVENOX) SYR SC SCH (09:28)
[2020-03-31] MEDS: CARVEDILOL 12.5 MG (COREG) TABLET PO SCH ×2 (09:28→20:17)
[2020-03-31] MEDS: amLODIPine 10 MG (NORVASC) TAB PO SCH (09:28)
[2020-03-31] MEDS: SALINE NASAL SPRAY (OCEAN) 45 ML BTL SCH ×4 (09:33→20:17)
[2020-03-31] MEDS: MICONAZOLE 2% POWDER (DESENEX AF) 90 GM TOP SCH ×2 (09:33→20:17)
[2020-03-31] MEDS: FLUTICASONE NASAL SPRAY (FLONASE) 16 GM BTL NS SCH (09:33)
[2020-03-31] MEDS: ZINC OXIDE 16% OINT (BUTT PASTE) 57 GM TUBE TOP SCH ×2 (09:36→20:17)
[2020-03-31] MEDS: DOCUSATE SODIUM 100 MG (COLACE) CAP PO SCH ×2 (09:41→20:17)
[2020-03-31 09:42] VITALS: BP 138/75
[2020-03-31] MEDS: SENNA W/DOCUSATE (SENOKOT S) TABLET PO SCH ×2 (09:42→20:18)
[2020-03-31] MEDS: polyethylene glycoL POWDER 17 GM (MIRALAX) PACK PO SCH ×2 (09:42→20:18)
--- NOTE | 2020-03-31 11:40 | NUR ---
MORE CONFUSED TODAY AND HAVING A HARDER TIME WITH TRANSFERS. STATES, "LEGS JUST DON'T WANT TO MOVE". CONTINUES TO COMPLAIN OF VISION LOSS AND CONTINUES TO BE INCONTINENT. HAS URINATED OFF THE SIDE OF THE BED. BED/CHAIR ALARM ON. DR. PARKS ON THE FLOOR AND INFORMED.
--- NOTE | 2020-03-31 11:40 | PM&R Progress Note ---
Subjective HPI/CC On Admission Date Seen by Provider: Mar 31, 2020 Time Seen by Provider: 11:45 Subjective/Events-last exam 03/31/20: More confused today Dr Barajas evaluated a run of atrial flutter of 160 last night for a brief moment so added Eliquis and maintained on Plavix for carotid stenosis Difficulty transferring Podiatry consult tomorrow 03/30/20: Up in chair today Incontinent now Dysphagia 2 diet tolerated Did not eat lunch Sleepy Vision changes are profound 03/29/20: Patient seems to be progressing very well Able to walk farther today Seems more alert and less confused today Outperforming with therapy today No pain reported ST working with him for swallowing and cognition Checked meds and labs Review of Systems General: Fatigue, Malaise Neurological: Weakness, Incoordination, Confusion Objective Exam Vital Signs Vital Signs Date Time Temp Pulse Resp B/P (MAP) Pulse Ox O2 Delivery O2 Flow Rate FiO2 03/31/20 17:26 36.8 69 17 122/78 (93) 93 Room Air Capillary Refill : General Appearance: No Apparent Distress, WD/WN, Chronically ill HEENT: PERRL/EOMI, TMs Normal, Normal ENT Inspection, Pharynx Normal Neck: Full Range of Motion, Normal Inspection, Non Tender, Supple, Carotid Bruit Respiratory: Chest Non Tender, Lungs Clear, Normal Breath Sounds, No Accessory Muscle Use, No Respiratory Distress Cardiovascular: Regular Rate, Rhythm, No Edema, No Gallop, No JVD, No Murmur, Normal Peripheral Pulses Gastrointestinal: Normal Bowel Sounds, No Organomegaly, No Pulsatile Mass, Non Tender, Soft Back: Normal Inspection, No CVA Tenderness, No Vertebral Tenderness Extremity: Normal Capillary Refill, Normal Inspection, Normal Range of Motion, Non Tender, No Calf Tenderness, No Pedal Edema Neurologic/Psychiatric: Alert, Normal Mood/Affect, Abnormal slimer II-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 FIM Transfers Therapy Code Descriptions/Definitions Functional [place] Measure: 0=Not Assessed/NA 4=Minimal Assistance 1=Total Assistance 5=Supervision or Setup 2=Maximal Assistance 6=Modified [place] 3=Moderate Assistance 7=Complete IndependenceSCALE: Activities may be completed with or without assistive devices. 3-Tozubiskxb-skrsopc completes the activity by him/herself with no assistance from a helper. 5-Set-up or Clean-up Assistance-helper sets up or cleans up; patient completes activity. [place] assists only prior to or following the activity. 4-Supervision or Touching Assistance-helper provides verbal cues and/or touching/steadying and/or contact guard assistance as patient completes activity. Assistance may be provided throughout the activity or intermittently. 3-Partial/Moderate Assistance-helper does LESS THAN HALF the effort. [place] lifts, holds or supports trunk or limbs, but provides less than half the effort. 2-Substantial/Maximal Assistance-helper does MORE THAN HALF the effort. [place] lifts or holds trunk or limbs and provides more than half the effort. 7-Mloykuyct-legfgb does ALL the effort. Patient does none of the effort to complete the activity. Or, the assistance of 2 or more helpers is required for the patient to complete the activity. If activity was not attempted, code reason: 7-Patient Refused. 9-Not Applicable-not attempted and the patient did not perform the activity before the current illness, exacerbation or injury. 10-Not Attempted due to Environmental Limitations-(lack of equipment, weather restraints, etc.). 88-Not Attempted due to Medical Conditions or Safety Concerns. Roll Left to Right (QC): 6 Sit to Lying (QC): 5 Sit to Stand (QC): 4 (CGa with cues for hand placement.) Chair/Ltf-iv-Tqath Xfer(QC): 4 Car Transfer (QC): 3 (verbal and tactile cues required. ) Gait Training Does the Patient Walk?: Yes Walk 10 feet (QC): 4 Walk 50 ft with 2 Turns(QC): 4 Walk 150 ft (QC): 88 Walking 10ft/uneven surface-QC: 3 Gait Persons Needed: 1 Gait Assistive Device: FWW Wheelchair Training Does the Pt Use a Wheelchair?: Yes Wheel 50 ft with 2 turns (QC): 4 Wheel 150 ft (QC): 3 (min assist to achieve this distance;) Type of Wheelchair: Manual Stair Training 1 Step (curb) (QC): 88 (approached step but pt unable to safely attempt.) 4 Steps (QC): 88 12 Steps (QC): 88 Balance Picking up an Object (QC): 88 ADL-Treatment Eating (QC): 5 (Based on clincial judgement, pt would require set up assistance with task.) Oral Hygiene (QC): 3 (Min A, pt required cues to rinse and spit, assist to bring cup to mouth and assist bringing spit tray to mouth. Pt able to use toothbrush and brush gums after OT handed pt toothbrush set up with paste.) Shower/Bathe Self (QC): 1 (Assist x2 in screw machine hand order for OT to wash buttocks. Pt able to wash UEs, chest and upper legs but required assistance wtih all parts for thoroughness. Assist to wash lower legs/feet.) Upper Body Dressing (QC): 3 (Trudi, pt able to thread arms and head through shirt, assistance needed to adjust down trunk) Lower Body Dressing (QC): 1 (Assist x2. for pants hike while standing for unsteady standing balance. Pt needed assistance on telling front to back, but when shown tag, pt was able to thread both legs through pants. Assist RLE into brief.) On/Off Footwear (QC): 3 (Min A, pt able to doff bilateral gripper socks, and don LLE sock. Assist to don RLE sock.) Toileting Hygiene (QC): 1 (Based on clinical judgement, pt would require assistance with pant hike and hygiene.) Assessment/Plan Assessment and Plan Assess & Plan/Chief Complaint Assessment: s/p acute ischemic stroke Bilateral carotid stenosis has f/u [address] Sanders CTA revealed bilateral carotid stenosis >70%, chronically occluded right vertebral artery, left vertebral artery stenosis >70% Vertebral artery stenosis/occlusion Impaired vision in both eyes Dementia 03/06 SLUMS HTN HLD DVT prophylaxis: Lovenox Chronic debility and non-ambulatory for 2 years per Atrial flutter noted on Tely 03/30/20 at 160 HR briefly so starte don OAC 03/31/20 Plan: IRF protocol Wheelchair bound at home Statin Monitor closely 03/29/20: Able to ambulate a lot more today Feels good about progress ST to help with swallowing 03/30/20: Advanced diet Incontinence care Vision issues 03/31/20: Added OAC to Plavix for atrial flutter run on Tely last night and reviewed by Dr Karl Confusion monitoring (1) 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 Status: Acute (2) Carotid stenosis, bilateral Status: Acute (3) Right homonymous hemianopsia due to recent cerebral infarction Status: Acute (4) Vertebral artery stenosis/occlusion Status: Acute (5) Impaired vision in both eyes Status: Acute (6) HLD (hyperlipidemia) Status: Acute (7) HTN (hypertension) Status: Acute AYALA PARKS DO Mar 31, 2020 11:40
--- NOTE | 2020-03-31 17:12 | NUR ---
REC'D IN AM REPORT THAT SWIMMER IN ICU CALLED PROFESSIONAL BONDSMAN RN LAST NIGHT AND REPORTED THAT PATIENT'S HR WAS IN THE 160S. NOT SUSTAINED AND ONLY LASTED A COUPLE OF SECONDS. SWIMMER WAS UNABLE TO CAPTURE ON STRIP. PROFESSIONAL BONDSMAN RN REPORTED THAT PATIENT GOT UP AND HAD A BM SHORTLY AFTER. NO OTHER EVENTS OCCURRED THE REST OF THE NIGHT. DR. CHURCH HERE AND INFORMED. NEW ORDER TO START ASA- [address] CHURCH AWARE THAT PATIENT IS ON PLAVIX AND LOVENOX.
[2020-03-31 17:26] VITALS: BP 122/78
--- NOTE | 2020-03-31 18:25 | NUR ---
CALL FROM DR. CHURCH. DR. CHURCH STATES THAT HE WAS ABLE TO LOCATE TELEMETRY STRIP FROM LAST NIGHT WHEN PATIENT'S HR WAS IN THE 160'S. THINKS THAT PATIENT WAS IN A FLUTTER. ORDERS TO DC ASA. START ELIQUIS- 5 MG PO BID. CONTINUE PLAVIX DAILY DUE TO CAROTIDS. DC LOVENOX. DR. PARKS UPDATED AND OK WITH CHANGES WELL.
--- NOTE | 2020-03-31 18:28 | Progress Note - Cardiology ---
Cardiology SOAP Progress Note Subjective: No cp or palp or syncope or shortness or breath or swelling or palp No n/v Gen malaise Objective: I&O/Vital Signs 03/31/20 03/31/20 03/31/20 03/31/20 07:00 09:42 09:50 12:44 Pulse 73 77 67 B/P (MAP) 138/75 (96) O2 Delivery Room Air 03/31/20 17:26 Temp 36.8 Pulse 69 Resp 17 B/P (MAP) 122/78 (93) Pulse Ox 93 O2 Delivery Room Air 03/31/20 00:00 Intake Total 400 ml Balance 400 ml Constitutional: other (appears mildly confused, provides short or no answers to questios) Respiratory: No accessory muscle use; other (Fair to good bilat air entry) Cardiovascular: regular rate-rhythm, S1 and S2, systolic murmur (soft QUYEN at card base) Gastrointestional: No tender; soft; No guarding, No rebound; audible bowel sounds Extremities: No clubbing, No cyanosis, No significant edema Neurologic/Psychiatric: No oriented x 3; other (mildly confused, seems to be able to move all limbs equally) Skin: No rash on exposed areas, No ulcerations on exposed areas A/P: Assessment: Neurologic deficits consisting of confusion, dyphasia, and R-sided vision loss: CVA (acute infarction involving most of the left posterior cerebral artery distribution) vs mass effect (hypodensities along the temporal lobe more in the white matter, worrisome for an underlying mass per CT and MRI of the head on 03-25-20 and 03-26-20, respectively) Carotid artery dz. CTA of 03-26-20: 70% stenosis of the right internal carotid artery. There is a 70 to 80% stenosis of the left internal carotid artery. 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 The left vertebral artery has approximately 70% stenosis at its origin and is fairly prominent vessel throughout the remainder of its course Brief atrial flutter with 2:1 AV conduction on 03/30/20 (lasting only a few seconds) Echo of 03/26/20: LVEF 60-65%, grade 1 diastolic dysfunction, mild to mod enlargement of LA, PASP 25 - 30 mmHg HTN HLD - advise statin tx Plan: * Management of stroke/mass effect is with Dr Kessler * Add Eliquis because of A Flutter and h/o CVA (for stroke prophylaxis) * D/c tele * Continue clopidogrel, given carotid art disease * Follow CV surgery's recs for carotid surg timing * Monitor labs TRINITY CHURCH MD FACP FAC CCDS Mar 31, 2020 18:28
[2020-03-31] MEDS: APIXABAN 5 MG (ELIQUIS) TABLET PO SCH (20:22)
[2020-03-31] MEDS: ALPRAZolam 0.25 MG (XANAX) TAB PO PRN (22:20)
[2020-04-01] MEDS: ACETAMINOPHEN 325 MG TABLET PO PRN ×3 (00:08→20:01)
[2020-04-01 05:14] VITALS: BP 125/60
[2020-04-01 05:31] LABS: BASOPHILS % (AUTO) 0 % (0-10); EOSINOPHILS % (AUTO) 0 % (0-10); HEMATOCRIT 44 % (40-54); HEMOGLOBIN 14.8 g/dL (13.3-17.7); LYMPHOCYTES # (AUTO) 2.1 10^3/uL (1.0-4.0); LYMPHOCYTES % (AUTO) 17 % (12-44); MEAN CORPUSCULAR HEMOGLOBIN 34 pg (25-34); MEAN CORPUSCULAR HGB CONC 34 g/dL (32-36); MEAN CORPUSCULAR VOLUME 101 fL (80-99); MEAN PLATELET VOLUME 11.7 fL (9.0-12.2); MONOCYTES # (AUTO) 2.3 10^3/uL (0.0-1.0); MONOCYTES % (AUTO) 18 % (0-12); NEUTROPHILS # (AUTO) 8.2 10^3/uL (1.8-7.8); NEUTROPHILS % (AUTO) 64 % (42-75); PLATELET COUNT 192 10^3/uL (130-400); WHITE BLOOD COUNT 12.8 10^3/uL (4.3-11.0)
[2020-04-01 05:52] LABS: CHLORIDE 102 MMOL/L (98-107); POTASSIUM 3.3 MMOL/L (3.6-5.0); SODIUM 138 MMOL/L (135-145)
[2020-04-01 05:53] LABS: CALCIUM 9.2 MG/DL (8.5-10.1)
[2020-04-01 05:54] LABS: GLUCOSE 117 MG/DL (70-105); TOTAL PROTEIN 7.3 GM/DL (6.4-8.2)
[2020-04-01 05:55] LABS: CARBON DIOXIDE 21 MMOL/L (21-32)
[2020-04-01 05:56] LABS: BILIRUBIN,TOTAL 1.4 MG/DL (0.1-1.0)
[2020-04-01 05:57] LABS: ALKALINE PHOSPHATASE 65 U/L (40-136)
[2020-04-01 05:58] LABS: CREATININE SERUM 0.92 MG/DL (0.60-1.30); GFR ESTIMATED > 60
[2020-04-01 05:59] LABS: BUN/CREATININE RATIO 24
[2020-04-01 06:01] LABS: ALANINE AMINOTRANSFERASE 22 U/L (0-55)
[2020-04-01] MEDS: APIXABAN 5 MG (ELIQUIS) TABLET PO SCH ×2 (08:24→20:00)
[2020-04-01] MEDS: SENNA W/DOCUSATE (SENOKOT S) TABLET PO SCH ×2 (08:24→20:04)
[2020-04-01] MEDS: DOCUSATE SODIUM 100 MG (COLACE) CAP PO SCH ×2 (08:25→20:02)
[2020-04-01] MEDS: amLODIPine 10 MG (NORVASC) TAB PO SCH (08:25)
[2020-04-01] MEDS: CARVEDILOL 12.5 MG (COREG) TABLET PO SCH ×2 (08:25→20:00)
[2020-04-01] MEDS: FLUTICASONE NASAL SPRAY (FLONASE) 16 GM BTL NS SCH (08:26)
[2020-04-01] MEDS: CLOPIDOGREL 75 MG (PLAVIX) TABLET PO SCH (08:26)
[2020-04-01] MEDS: polyethylene glycoL POWDER 17 GM (MIRALAX) PACK PO SCH ×2 (08:26→20:04)
[2020-04-01] MEDS: SALINE NASAL SPRAY (OCEAN) 45 ML BTL SCH ×4 (08:27→20:07)
--- NOTE | 2020-04-01 08:27 | Cardiology Progress Note ---
Objective-Cardiology Exam Last Set of Vital Signs Vital Signs 04/01/20 04/01/20 05:14 09:00 Temp 37.6 Pulse 80 Resp 16 B/P (MAP) 125/60 (81) Pulse Ox 93 O2 Delivery Room Air Capillary Refill : I&O Intake and Output 04/01/20 00:00 Intake Total 700 ml Output Total 100 ml Balance 600 ml Intake Oral 700 ml Output Urine Total 100 ml # Voids 8 # Bowel Movements 2 Results Lab Laboratory Tests 04/01/20 04:30 A/P-Cardiology Assessment/Plan Neurologic deficits consisting of confusion, dyphasia, and R-sided vision loss: CVA (acute infarction involving most of the left posterior cerebral artery distribution) vs mass effect (hypodensities along the temporal lobe more in the white matter, worrisome for an underlying mass per CT and MRI of the head on 03-25-20 and 03-26-20, respectively) Carotid artery stenosis. CTA of 03-26-20: 70% stenosis of the right internal carotid artery. There is a 70 to 80% stenosis of the left internal carotid artery. 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 The left vertebral artery has approximately 70% stenosis at its origin and is fairly prominent vessel throughout the remainder of its course. Continue on Plavix, f/u with CV surgery Brief atrial flutter with 2:1 AV conduction on 03/30/20 (lasting only a few seconds), started on Eliquis. Echo of 03/26/20: LVEF 60-65%, grade 1 diastolic dysfunction, mild to mod enlargement of LA, PASP 25 - 30 mmHg HTN, continue to monitor. HLD - advise statin tx JOSE JUAN OSBORNE Apr 01, 2020 08:27
[2020-04-01] MEDS: ZINC OXIDE 16% OINT (BUTT PASTE) 57 GM TUBE TOP SCH ×2 (08:28→20:08)
[2020-04-01] MEDS: MICONAZOLE 2% POWDER (DESENEX AF) 90 GM TOP SCH ×2 (08:28→20:09)
--- NOTE | 2020-04-01 08:36 | Cardiology Progress Note ---
Subjective Date Seen by Provider: Apr 01, 2020 Time Seen by Provider: 08:33 Subjective/Events-last exam Patient is with PT, denies any chest pain or increased dyspnea. Objective-Cardiology Exam Last Set of Vital Signs Vital Signs 04/01/20 04/01/20 05:14 09:00 Temp 37.6 Pulse 80 Resp 16 B/P (MAP) 125/60 (81) Pulse Ox 93 O2 Delivery Room Air Capillary Refill : I&O Intake and Output 04/01/20 00:00 Intake Total 700 ml Output Total 100 ml Balance 600 ml Intake Oral 700 ml Output Urine Total 100 ml # Voids 8 # Bowel Movements 2 General: Alert, Oriented X3, Cooperative HEENT: Atraumatic, PERRLA Neck: Supple, No JVD, No Thyromegaly Lungs: Clear to Auscultation, Normal Air Movement Heart: Regular Rate, Normal S1, Normal S2, No Murmurs Abdomen: Normal Bowel Sounds, Soft, No Tenderness, No Hepatosplenomegaly, No Masses Extremities: No Clubbing, No Cyanosis, No Edema, Normal Pulses, No Tendern ess/Swelling Skin: No Rashes, No Breakdown, No Significant Lesion Neuro: Normal Speech Psych/Mental Status: Mental Status NL, Mood NL Results Lab Laboratory Tests 04/01/20 04:30 A/P-Cardiology Admission Diagnosis CVA Carotid artery stenosis Paroxysmal atrial flutter HTN Assessment/Plan Neurologic deficits consisting of confusion, dyphasia, and R-sided vision loss: CVA (acute infarction involving most of the left posterior cerebral artery distribution) vs mass effect (hypodensities along the temporal lobe more in the white matter, worrisome for an underlying mass per CT and MRI of the head on and 03-26-20, respectively) Carotid artery stenosis, CTA of 03-26-20: 70% stenosis of the right internal carotid artery. There is a 70 to 80% stenosis of the left internal carotid artery. 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 The left vertebral artery has approximately 70% stenosis at its origin and is fairly prominent vessel throughout the remainder of its course. Per Dr. Sanders's recommendations, continue on Plavix and f/u in 6 weeks as outpatient. Brief atrial flutter with 2:1 AV conduction on 03/30/20 (lasting only a few seconds), started on Eliquis. Continue to monitor. Echo of 03/26/20: LVEF 60-65%, grade 1 diastolic dysfunction, mild to mod enlargement of LA, PASP 25 - 30 mmHg HTN, continue to monitor. HLD - started on Lipitor. Patient was seen and evaluated with Macy, examination performed, management plan was discussed, agree with the current scribed note, I made few changes to the note using Italic font Patient was seen at bedside laying down comfortably, denied any active pain Continue on oral anticoagulation, monitor blood pressure and lipids MACY OSBORNE Apr 01, 2020 8:36 am BERNICE MONTERO MD Apr 01, 2020 5:13 pm
--- NOTE | 2020-04-01 08:36 | PM&R Progress Note ---
Subjective HPI/CC On Admission Date Seen by Provider: Apr 01, 2020 Time Seen by Provider: 08:30 Subjective/Events-last exam 04/01/20: Pt really cant walk very well today Dr. Goodwin will be in for toenail care Reports foot pain but it varies whether he reports it hurts or it doesnt Incontinence now Very confused Eliquis started along with his Plavix 03/31/20: More confused today Dr Barajas evaluated a run of atrial flutter of 160 last night for a brief moment so added Eliquis and maintained on Plavix for carotid stenosis Difficulty transferring Podiatry consult tomorrow 03/30/20: Up in chair today Incontinent now Dysphagia 2 diet tolerated Did not eat lunch Sleepy Vision changes are profound 03/29/20: Patient seems to be progressing very well Able to walk farther today Seems more alert and less confused today Outperforming with therapy today No pain reported ST working with him for swallowing and cognition Checked meds and labs Review of Systems General: Fatigue, Malaise Neurological: Weakness, Incoordination Objective Exam Vital Signs Vital Signs Date Time Temp Pulse Resp B/P (MAP) Pulse Ox O2 Delivery O2 Flow Rate FiO2 04/01/20 17:56 37.9 77 18 113/63 (80) 92 Room Air Capillary Refill : General Appearance: No Apparent Distress, WD/WN, Chronically ill HEENT: PERRL/EOMI, TMs Normal, Normal ENT Inspection, Pharynx Normal Neck: Full Range of Motion, Normal Inspection, Non Tender, Supple, Carotid Bruit Respiratory: Chest Non Tender, Lungs Clear, Normal Breath Sounds, No Accessory Muscle Use, No Respiratory Distress Cardiovascular: Regular Rate, Rhythm, No Edema, No Gallop, No JVD, No Murmur, Normal Peripheral Pulses Gastrointestinal: Normal Bowel Sounds, No Organomegaly, No Pulsatile Mass, Non Tender, Soft Back: Normal Inspection, No CVA Tenderness, No Vertebral Tenderness Extremity: Normal Capillary Refill, Normal Inspection, Normal Range of Motion, Non Tender, No Calf Tenderness, No Pedal Edema Neurologic/Psychiatric: Alert, Normal Mood/Affect, Abnormal mining support worker II-XII, Abnormal Gait, Disoriented, Motor Weakness (generalized weakness 3/5 arms 2/5 legs but right sided neglect noted) Skin: Normal Color, Warm/Dry Lymphatic: No Adenopathy Results/Procedures Lab Laboratory Tests 04/01/20 04:30 04/01/20 18:10 Patient resulted labs reviewed. FIM Transfers Therapy Code Descriptions/Definitions Functional [place] Measure: 0=Not Assessed/NA 4=Minimal Assistance 1=Total Assistance 5=Supervision or Setup 2=Maximal Assistance 6=Modified [place] 3=Moderate Assistance 7=Complete IndependenceSCALE: Activities may be completed with or without assistive devices. 7-Rgddwqxodn-cekkbxx completes the activity by him/herself with no assistance from a helper. 5-Set-up or Clean-up Assistance-helper sets up or cleans up; patient completes activity. [place] assists only prior to or following the activity. 4-Supervision or Touching Assistance-helper provides verbal cues and/or touching/steadying and/or contact guard assistance as patient completes ac tivity. Assistance may be provided throughout the activity or intermittently. 3-Partial/Moderate Assistance-helper does LESS THAN HALF the effort. [place] lifts, holds or supports trunk or limbs, but provides less than half the effort. 2-Substantial/Maximal Assistance-helper does MORE THAN HALF the effort. [place] lifts or holds trunk or limbs and provides more than half the effort. 6-Banpjjcrt-wonwgc does ALL the effort. Patient does none of the effort to complete the activity. Or, the assistance of 2 or more helpers is required for the patient to complete the activity. If activity was not attempted, code reason: 7-Patient Refused. 9-Not Applicable-not attempted and the patient did not perform the activity before the current illness, exacerbation or injury. 10-Not Attempted due to Environmental Limitations-(lack of equipment, weather restraints, etc.). 88-Not Attempted due to Medical Conditions or Safety Concerns. Roll Left to Right (QC): 6 Sit to Lying (QC): 5 Sit to Stand (QC): 4 (CGa with cues for hand placement.) Chair/Chk-ki-Xmsla Xfer(QC): 4 Car Transfer (QC): 3 (verbal and tactile cues required. ) Gait Training Does the Patient Walk?: Yes Walk 10 feet (QC): 4 Walk 50 ft with 2 Turns(QC): 4 Walk 150 ft (QC): 88 Walking 10ft/uneven surface-QC: 3 Gait Persons Needed: 1 Gait Assistive Device: FWW Wheelchair Training Does the Pt Use a Wheelchair?: Yes Wheel 50 ft with 2 turns (QC): 4 Wheel 150 ft (QC): 3 (min assist to achieve this distance;) Type of Wheelchair: Manual Stair Training 1 Step (curb) (QC): 88 (approached step but pt unable to safely attempt.) 4 Steps (QC): 88 12 Steps (QC): 88 Balance Picking up an Object (QC): 88 ADL-Treatment Eating (QC): 5 (Based on clincial judgement, pt would require set up assistance with task.) Oral Hygiene (QC): 3 (Min A, pt required cues to rinse and spit, assist to bring cup to mouth and assist bringing spit tray to mouth. Pt able to use toothbrush and brush gums after OT handed pt toothbrush set up with paste.) Shower/Bathe Self (QC): 1 (Assist x2 in raised printer order for OT to wash buttocks. Pt able to wash UEs, chest and upper legs but required assistance wtih all parts for thoroughness. Assist to wash lower legs/feet.) Upper Body Dressing (QC): 3 (Trudi, pt able to thread arms and head through shirt, assistance needed to adjust down trunk) Lower Body Dressing (QC): 1 (Assist x2. for pants hike while standing for unsteady standing balance. Pt needed assistance on telling front to back, but when shown tag, pt was able to thread both legs through pants. Assist RLE into brief.) On/Off Footwear (QC): 3 (Min A, pt able to doff bilateral gripper socks, and don LLE sock. Assist to don RLE sock.) Toileting Hygiene (QC): 1 (Based on clinical judgement, pt would require assistance with pant hike and hygiene.) Assessment/Plan Assessment and Plan Assess & Plan/Chief Complaint Assessment: s/p acute ischemic stroke Bilateral carotid stenosis has f/u [address] Sanders CTA revealed bilateral carotid stenosis >70%, chronically occluded right vertebral artery, left vertebral artery stenosis >70% Vertebral artery stenosis/occlusion Impaired vision in both eyes Dementia 03/06 SLUMS HTN HLD DVT prophylaxis: Lovenox Chronic debility and non-ambulatory for 2 years per Atrial flutter noted on Tely 03/30/20 at 160 HR briefly so starte don OAC 03/31/20 Plan: IRF protocol Wheelchair bound at home Statin Monitor closely 1/22/21: Able to ambulate a lot more today Feels good about progress ST to help with swallowing 03/30/20: Advanced diet Incontinence care Vision issues 03/31/20: Added OAC to Plavix for atrial flutter run on Tely last night and reviewed by Dr Barajas Confusion monitoring 04/01/20: Podiatry appreciated Monitor BP OAC and Plavix required (1) 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 Status: Acute (2) Carotid stenosis, bilateral Status: Acute (3) Right homonymous hemianopsia due to recent cerebral infarction Status: Acute (4) Vertebral artery stenosis/occlusion Status: Acute (5) Impaired vision in both eyes Status: Acute (6) HLD (hyperlipidemia) Status: Acute (7) HTN (hypertension) Status: Acute AYALA PARKS DO Apr 01, 2020 08:36
--- NOTE | 2020-04-01 08:54 | Physical Therapy Daily Note ---
PT Daily Note-Current Subjective Patient in bed pre tx, agrees to PT, has to have a BM, has 10/10 pain in left foot with movement and bearing weight, little pain at rest. Appearance Patient in recliner post tx with nurse call, phone, tray, all needs met, chair alarm on. Mental Status Patient Orientation: Person, Confused Transfers SCALE: Activities may be completed with or without assistive devices. 3-Lynldcduwp-xvmmjbt completes the activity by him/herself with no assistance from a helper. 5-Set-up or Clean-up Assistance-helper sets up or cleans up; patient completes activity. [place] assists only prior to or following the activity. 4-Supervision or Touching Assistance-helper provides verbal cues and/or touching/steadying and/or contact guard assistance as patient completes activity. Assistance may be provided throughout the activity or intermittently. 3-Partial/Moderate Assistance-helper does LESS THAN HALF the effort. [place] lifts, holds or supports trunk or limbs, but provides less than half the effort. 2-Substantial/Maximal Assistance-helper does MORE THAN HALF the effort. [place] lifts or holds trunk or limbs and provides more than half the effort. 4-Toodxruaw-qdmeiw does ALL the effort. Patient does none of the effort to complete the activity. Or, the assistance of 2 or more helpers is required for the patient to complete the activity. If activity was not attempted, code reason: 7-Patient Refused. 9-Not Applicable-not attempted and the patient did not perform the activity before the current illness, exacerbation or injury. 10-Not Attempted due to Environmental Limitations-(lack of equipment, weather restraints, etc.). 88-Not Attempted due to Medical Conditions or Safety Concerns. Roll Left & Right (QC): 3 Lying to Sitting/Side of Bed(Q: 3 Sit to Stand (QC): 2 Chair/Dzz-cy-Koyke Xfer(QC): 3 Toilet Transfer (QC): 3 Patient supine to sit, max assist stand pivot to bedside commode, total assist to wipe and pull pants up, max assist stand pivot to WC, take to therapy gym, stand pivot with mod assist to therapy table to perform LE exercises, mod assist transfer back to , practice WC mobility, mod assist stand pivot transfer to recliner. Wheelchair Training Does the Pt Use a Wheelchair?: Yes Wheel 50 ft with 2 turns (QC): 3 Type of Wheelchair: Manual 120' Exercises Supine Ex: Quad Set, Glut sets, Straight leg raise, Hip abd/add Supine Reps: 20 LAQ alternating for 5 min with 2# ankle weights Treatments dressing (total assist), toileting, bed mobility and transfers, WC mobility, LE exercises Assessment Current Status: Poor Progress Patient's left foot pain prevented him from ambulating, made transfers much more difficult. PT Short Term Goals Short Term Goals Time Frame: Apr 11, 2020 Roll Left & Right: 5 Sit to lyin Lying to sitting on side of be: 5 Sit to stand: 4 Chair/twh-xw-uhrmc transfer: 4 Walk 10 feet: 4 Walk 50 feet with two turns: 3 PT Activity Assistant Goals Retirement Goals PT Retirement Goals Time Frame: Apr 25, 2020 Roll Left & Right (QC): 6 Sit to Lying (QC): 6 Lying-Sitting on Side/Bed(QC): 6 Sit to Stand (QC): 6 Chair/Xts-ih-Fmdsq Xfer(QC): 6 Toilet Transfer (QC): 6 Car Transfer (QC): 4 Does the Patient Walk: Yes Walk 10 feet (QC): 4 Walk 50ft with 2 Turns (QC): 4 Walk 150 ft (QC): 9 Walking 10ft on Uneven Surface: 3 1 Step (curb) (QC): 3 4 Steps (QC): 9 12 Steps (QC): 9 Picking up an Object (QC): 9 Does the Pt use WC or Scooter?: Yes Wheel 50 feet with 2 turns (QC: 6 Type: Manual Wheel 150 feet: 6 Type: Manual PT Plan Problem List Problem List: Activity Tolerance, Functional Strength, Safety, Balance, Gait, Transfer, Bed Mobility, ROM Treatment/Plan Treatment Plan: Continue Plan of Care Treatment Plan: Bed Mobility, Education, Functional Activity Kera, Functional Strength, Group Therapy, Gait, Safety, Therapeutic Exercise, Transfers Treatment Duration: Apr 25, 2020 Frequency: At least 5 of 7 days/Wk (IRF) Estimated Hrs Per Day: 1.5 hours per day Patient and/or Family Agrees t: Yes Safety Risks/Education Patient Education: Transfer Techniques, Correct Positioning, W/C Management, Safety Issues Teaching Recipient: Patient Teaching Methods: Demonstration, Discussion Response to Teaching: Reinforcement Needed Time/GCodes Time In: 00 Time Out: 0900 Total Billed Treatment Time: 60 Total Billed Treatment 1 visit EX 20' FA 40' IVÁN DUKE PT Apr 01, 2020 08:54
[2020-04-01] MEDS ORDERED: ASPIRIN 81 MG CHEW (CHILDREN'S ASA) PO SCH (09:00)
--- NOTE | 2020-04-01 10:08 | Occupational Ther Daily Note ---
OT Current Status-Daily Note Subjective Pt describes pain in L leg 8/10 before tx. After sponge bath, pt described pain more than an 8/10, but could not give a specific number. Mental Status/Objective Patient Orientation: Confused ADL-Treatment Therapy Code Descriptions/Definitions Functional [place] Measure: 0=Not Assessed/NA 4=Minimal Assistance 1=Total Assistance 5=Supervision or Setup 2=Maximal Assistance 6=Modified [place] 3=Moderate Assistance 7=Complete IndependenceSCALE: Activities may be completed with or without assistive devices. 7-Mruwydverh-bywunjl completes the activity by him/herself with no assistance from a helper. 5-Set-up or Clean-up Assistance-helper sets up or cleans up; patient completes activity. [place] assists only prior to or following the activity. 4-Supervision or Touching Assistance-helper provides verbal cues and/or touching/steadying and/or contact guard assistance as patient completes activity. Assistance may be provided throughout the activity or intermittently. 3-Partial/Moderate Assistance-helper does LESS THAN HALF the effort. [place] lifts, holds or supports trunk or limbs, but provides less than half the effort. 2-Substantial/Maximal Assistance-helper does MORE THAN HALF the effort. [place] lifts or holds trunk or limbs and provides more than half the effort. 9-Csingkdyz-feksvk does ALL the effort. Patient does none of the effort to complete the activity. Or, the assistance of 2 or more helpers is required for the patient to complete the activity. If activity was not attempted, code reason: 7-Patient Refused. 9-Not Applicable-not attempted and the patient did not perform the activity before the current illness, exacerbation or injury. 10-Not Attempted due to Environmental Limitations-(lack of equipment, weather restraints, etc.). 88-Not Attempted due to Medical Conditions or Safety Concerns. Shower/Bathe Self (QC): 1 (Pt able to wash UB and feet. Assistance x2 needed to wash buttocks and upper legs) Upper Body Dressing (QC): 3 (Trudi, pt able to doff and don shirt but assistance needed to adjust down trunk) Lower Body Dressing (QC): 1 (Assist x2 in stand for clothing management, assist with all parts.) On/Off Footwear: 3 (ModA, pt able to doff gripper socks but assistance needed to thread on toes. Pt able to pull socks up over rest of foot, assist wtih orientation) Toileting Hygiene (QC): 1 (pt unable to perform toilet hygiene or clothing management. Assist x2 in stand) Toilet Transfer (QC): 1 (assistance x2 to/from [facility]) Other Treatment Pt started tx in recliner. Pt completed sponge bath at [facility]. Pt then transferred from standing to / with SPT. Pt performed functional mobility with w/c to therapy gym with minimal cues to keep R hand on wheel. In therapy gym, pt participated in arm bike exercise for 10min to increase BUE arm strength and increase bilateral integration. During exercise pt states that he "hates this." OT reassured the purpose of the exercise and that there's only a couple minutes left. Pt also would let go of the petal of the bike with R hand and unable to find the petal again. OT assisted with helping to find the petal, attempted to place contrasting yellow color on handle to increase pt's ability to scan for handle, but pt still required hand over hand assist to locate. Pt then participated in peg board activity with 25 pegs scattered across the board to encourage R side scanning. pt started with L side of the board and moved across the board to the R using his L hand. Pt able to see all pegs but needed cues to find the last one. During activity, OT asked pt to reach the pegs with his R hand, pt mentioned not being able to so he continued activity with L hand. Pt then stated he needed to use the restroom so pt returned to room. Pt attempted to transfer from / to [facility] using SPT with assistance x2 but was unsuccessful the first time. pt reminded to stand up tall when transferring. Pt successfully transferred to [facility] with SPT. Pt stood to perform clothing management and hygiene with assistance x2, but before transferring to [facility], pt had to sit again to rest. Pt reminded to stand up tall and transfer to recline. Pt successfully transferred to [facility] with maximal cues to step with feet. Once in recliner, pt stated that he needed to use the restroom again, so pt transferred from [facility] to [facility] with FWW. Pt needed assistance x2 with clothing management and hygiene. Pt stood to perform these tasks and needed to sit back down on closed BSC before transferring back to [facility]. Pt transferred from [facility] to recliner with assistance x2 with maximal cueing to take steps with feet. Post tx, pt in recliner with chair alarm on, call light in reach and all needs met. Nursing notified about pt's BM x2 Education OT Patient Education: Correct positioning, Energy conservation, Modified ADL techniques, Progress toward Goal/Update tx plan, Purpose of tx/functional activities, Reviewed precautions, Safety issues, Transfer techniques Teaching Recipient: Patient Teaching Methods: Discussion Response to Teaching: Unable to Comprehend, Reinforcement Needed OT Short Term Goals Short Term Goals Time Frame: Apr 19, 2020 Oral hygiene: 5 Toileting hygiene: 3 Shower/bathe self: 3 Upper body dressin Lower body dressin OT Customer Services Supervisor Goals Detention Goals Time Frame: Apr 26, 2020 Eating (QC): 6 Oral Hygiene (QC): 6 Toileting Hygiene (QC): 6 Shower/Bathe Self (QC): 4 Upper Body Dressing (QC): 5 Lower Body Dressing (QC): 5 On/Off Footwear (QC): 5 Additional Goals: 1-Demonstrate ADL Tasks, 2-Verbalize Understanding, 3-ImproveStrength/Kera 1=Demonstrate adherence to instructed precautions during ADL tasks. 2=Patient will verbalize/demonstrate understanding of assistive devices/modifications for ADL. 3=Patient will improve strength/tolerance for activity to enable patient to perf orm ADL's. OT Education/Plan Problem List/Assessment Assessment: Decreased Activ Tolerance, Decreased UE Strength, Impaired Funct Balance, Impaired I ADL's, Impaired Self-Care Skills, Restricted Funct UE ROM, V isual-Perceptual Deficit Discharge Recommendations Plan/Recommendations: Continue POC Treatment Plan/Plan of Care Patient would benefit from OT for education, treatment and training to promote independence in ADL's, mobility, safety and/or upper extremity function for ADL's. Plan of Care: ADL Retraining, Functional Mobility, Group Exercise/Act as Ind, UE Funct Exercise/Act, UE Neuromus Re-Ed/Coord, Visual/Perceptual Retrain, W/C M anagement Training Treatment Duration: Apr 26, 2020 Frequency: At least 5 of 7 days/Wk (IRF) Estimated Hrs Per Day: 1.5 hours per day Agreement: Yes Rehab Potential: Fair Time/GCodes Start Time: 09:30 Stop Time: 10:45 Total Time Billed (hr/min): 75 Billed Treatment Time 1, ADL 3 (45), FA (20), EX (10) LUCILLE PACE OT Apr 01, 2020 10:08
--- NOTE | 2020-04-01 10:26 | Speech Therapy Daily Note ---
Speech Daily Progress Note Subjective Date Seen by Provider: Apr 01, 2020 Time Seen by Provider: 00:30 Patient was sitting in his recliner taking his meds when I entered his room. Patient was having difficulty with swallowing some of the meds so the nurse crushed them in applesauce making them easier to swallow. Patient c/o foot pain. Nursing advised patient the operator ground based [employer] will be here later to see him. Objective Patient completed simple y/n questions with 50% given max cuing. Assessment Assessment Current Status: Fair Progress Treatment Plan Continue Plan of Care Speech Short Term Goals Short Term Goals Short Term Goals 1) Patient will complete memory tasks related to his daily needs with 80% acc uracy given minimal cues. 2) Patient will complete tasks safety awareness to his daily needs with 80% accuracy given minimal cues. 3) Patient will complete problem solving tasks related to his daily needs with 80% accuracy given minimal cues. 4) Patient will tolerate least restrictive diet level without s/s of aspiration at 80% with minimal cues. 5) Patient/caregiver will utilize compensatory strategies as trained at 90% with minimal cues. Speech [employer] Goals Prison Goals Patient will improve cognitive-communication abilities in order to complete daily tasks with decreased assistance. Patient will maintain adequate nutrition/hydration via safe effective swallow function. Speech-Plan Patient/Family Goals Patient/Family Goals: Patient plans on returning to his home with his . At this time it is unclear if this will be a safe discharge situation due to his decreased level of function. Treatment Plan Speech Therapy Treatment Plan: Continue Plan of Care Treatment Duration: Apr 12, 2020 Frequency: 4 times per week (Patient will receive skilled ST 4-5x per week) Estimated Hrs Per Day: .5 hour per day Rehab Potential: Fair Barriers to Learning: Patient's cognitive deficits, decline in function Pt/Family Agrees to Plan: Yes Safety Risks/Education Teaching Recipient: Patient Teaching Methods: Demonstration, Discussion Response to Teaching: Verbalize Understanding, Return Demonstration, Reinforcement Needed Education Topics Provided: Continued safety within his room, utilization of call light education Time Speech Therapy Time In: 09:00 Speech Therapy Time Out: 09:30 Total Billed Time: 30 Billed Treatment Time [address] Apr 01, 2020 10:26
--- NOTE | 2020-04-01 12:25 | NUR ---
CM/SS ADMISSION Patient was admitted to ARU from [facility] Internal 03/28/20 for CVA/acute ischemic left posterior. Additional comorbidities are, in part, bilateral carotid stenosis (f/u [address] Ollie Sanders, [facility]), right homonymous hemianopsia, vertebral artery stenosis/occlusion, impaired vision both eyes, HLD, HTN, SLUMS 12/30, moderate dementia. Chronic debility, actual or enhanced by self-limitation. Patient was difficult to engage meaningfully, contacted spouse Kimberly Pulliam for foundational discharge planning. Patient resides at home with Kimberly. Per her description, patient fell about two years ago taking the trash out to the curb and he just "quit walking" out of fear of falling again. He has not been out of their home for those two years with the exception of sitting on the back porch for a few minutes at a time. Kimberly went on to describe that he will ambulate around in the house or will use his wheelchair for part of the distance and then walk short distances. Kimberly denies that patient has ever had any psychiatric assessments or inpatient/outpatient services. She repeatedly described his self isolation as "stubborn." Along those lines he has not had a PCP or gone to see a physician for quite some time. Kimberly stated she works 40-60 hours per week at [employer] here in [place]. PCP: None, confirmed by . Kimberly is established with Dr. Sanchez and she will contact the office to see if they would accept him as a patient. If not, Dr. Horace Branch or [facility] may be other options. Kimberly indicates he had always preferred male physicians in the past but she doesn't know his thinking on the matter at this time. She will discuss with patient. PHARMACY: [facility] will be preference per Kimberly, patient has not used a pharmacy in years but Kimberly is established there. INSURANCE: Medicare, [employer] DME: Has FWW (2-3 walkers) and wheelchair. Kimberly acquired these when patient stopped walking. He has a shower chair in the bathtub, consider tub transfer bench depending on his level of performance. BARRIERS TO DISCHARGE PLANNING: Initial SLUMS score 12/30, moderate dementia and expressive aphasia. Therapy notes reflect max assist for stand/pivot and total assist this date for toilet hygiene and pull up pants. Patient was dependent for supervision and assistance by Kimberly for the past two years as described earlier; however, this additional acute incident appears to have modified his ability to be left alone at home. The perception is that Kimberly's job responsibility is firm and that there would need to be a caregiver for patient in the home in her absence. Cost and the importance of scheduling was discussed with Kimberly, she agreed to start exploring for feasibility. Patient has adequate insurance for DME and benefit covered services, but caregivers would be private pay. CONTACTS: Kimberly Pulliam, [address] [place] [address] There are four children, Mitra Pulliam is in [place]. They have a son, Jesús Pulliam, [place] He was in an accident and is a wheelchair-bound amputee. They have two other children in [facility] and [place] respectively. Kimberly understands the purpose and process of the weekly team meeting and that patient's first review will be Friday April 03, 2020.
--- NOTE | 2020-04-01 13:45 | Physical Therapy Daily Note ---
PT Daily Note-Current Subjective Patient in bed pre tx, agrees to PT with much encouragement, has unrated pain in left foot. Appearance Patient in bed post tx with nurse call, phone, tray, bed alarm on. Mental Status Patient Orientation: Person, Confused Transfers SCALE: Activities may be completed with or without assistive devices. 3-Qsbuqksmmx-pumknwx completes the activity by him/herself with no assistance from a helper. 5-Set-up or Clean-up Assistance-helper sets up or cleans up; patient completes activity. [place] assists only prior to or following the activity. 4-Supervision or Touching Assistance-helper provides verbal cues and/or touching/steadying and/or contact guard assistance as patient completes activity. Assistance may be provided throughout the activity or intermittently. 3-Partial/Moderate Assistance-helper does LESS THAN HALF the effort. [place] lifts, holds or supports trunk or limbs, but provides less than half the effort. 2-Substantial/Maximal Assistance-helper does MORE THAN HALF the effort. [place] lifts or holds trunk or limbs and provides more than half the effort. 5-Wpljzkmcf-fuisji does ALL the effort. Patient does none of the effort to complete the activity. Or, the assistance of 2 or more helpers is required for the patient to complete the activity. If activity was not attempted, code reason: 7-Patient Refused. 9-Not Applicable-not attempted and the patient did not perform the activity before the current illness, exacerbation or injury. 10-Not Attempted due to Environmental Limitations-(lack of equipment, weather restraints, etc.). 88-Not Attempted due to Medical Conditions or Safety Concerns. Exercises Supine Ex: Quad Set, Glut sets, Short Arc Quads, Straight leg raise (AAROM), Hip abd/add (AAROM) Supine Reps: 20 Patient yells with pain when therapist grasps left lower calf to assist with SLR, patient is reminded that his pain is in his foot and not his leg and he stops and help perform the exercise. Treatments positioning, LE exercise Assessment Current Status: Poor Progress Patient seems more confused, he has lunch by his bed but states that he doesn't want it. When asked if he isn't hungry patient just looks confused and doesn't answer. PT Short Term Goals Short Term Goals Time Frame: Apr 11, 2020 Roll Left & Right: 5 Sit to lyin Lying to sitting on side of be: 5 Sit to stand: 4 Chair/ozk-iz-lbkum transfer: 4 Walk 10 feet: 4 Walk 50 feet with two turns: 3 PT Residential Goals Leather Belt Maker Goals PT Leather Belt Maker Goals Time Frame: Apr 25, 2020 Roll Left & Right (QC): 6 Sit to Lying (QC): 6 Lying-Sitting on Side/Bed(QC): 6 Sit to Stand (QC): 6 Chair/Pqw-hc-Xpcra Xfer(QC): 6 Toilet Transfer (QC): 6 Car Transfer (QC): 4 Does the Patient Walk: Yes Walk 10 feet (QC): 4 Walk 50ft with 2 Turns (QC): 4 Walk 150 ft (QC): 9 Walking 10ft on Uneven Surface: 3 1 Step (curb) (QC): 3 4 Steps (QC): 9 12 Steps (QC): 9 Picking up an Object (QC): 9 Does the Pt use WC or Scooter?: Yes Wheel 50 feet with 2 turns (QC: 6 Type: Manual Wheel 150 feet: 6 Type: Manual PT Plan Problem List Problem List: Activity Tolerance, Functional Strength, Safety, Balance, Gait, Transfer, Bed Mobility, ROM Treatment/Plan Treatment Plan: Continue Plan of Care Treatment Plan: Bed Mobility, Education, Functional Activity Kera, Functional Strength, Group Therapy, Gait, Safety, Therapeutic Exercise, Transfers Treatment Duration: Apr 25, 2020 Frequency: At least 5 of 7 days/Wk (IRF) Estimated Hrs Per Day: 1.5 hours per day Patient and/or Family Agrees t: Yes Safety Risks/Education Patient Education: Correct Positioning, Safety Issues Teaching Recipient: Patient Teaching Methods: Demonstration, Discussion Response to Teaching: Reinforcement Needed Time/GCodes Time In: 1330 Time Out: 1345 Total Billed Treatment Time: 15 Total Billed Treatment 1 visit EX IVÁN NICK PT Apr 01, 2020 13:45
--- NOTE | 2020-04-01 17:10 | NUR ---
DR. GARCIA HERE. NAILS CUT. DR. GARCIA REQUESTING X-RAYS & LABS FOR LEFT FOOT REDNESS AND SWELLING. NEW ORDER'S NOTED
[2020-04-01 17:56] VITALS: BP 113/63
[2020-04-01 18:16] LABS: BASOPHILS % (AUTO) 0 % (0-10); EOSINOPHILS % (AUTO) 0 % (0-10); HEMATOCRIT 43 % (40-54); HEMOGLOBIN 14.5 g/dL (13.3-17.7); LYMPHOCYTES # (AUTO) 1.6 10^3/uL (1.0-4.0); LYMPHOCYTES % (AUTO) 12 % (12-44); MEAN CORPUSCULAR HEMOGLOBIN 34 pg (25-34); MEAN CORPUSCULAR HGB CONC 34 g/dL (32-36); MEAN CORPUSCULAR VOLUME 101 fL (80-99); MEAN PLATELET VOLUME 11.4 fL (9.0-12.2); MONOCYTES # (AUTO) 2.1 10^3/uL (0.0-1.0); MONOCYTES % (AUTO) 16 % (0-12); NEUTROPHILS # (AUTO) 9.1 10^3/uL (1.8-7.8); NEUTROPHILS % (AUTO) 71 % (42-75); PLATELET COUNT 224 10^3/uL (130-400); WHITE BLOOD COUNT 12.9 10^3/uL (4.3-11.0)
--- NOTE | 2020-04-01 19:43 | Diagnostic Imaging Report ---
Indication: Erythema and edema in the left ankle AP and lateral views of left ankle are obtained. FINDINGS: There is slight posterior and plantar calcaneal spurring. No acute fracture or dislocation is identified. No abnormal lytic or sclerotic focus is seen, and there is no radiopaque foreign body. IMPRESSION: No acute abnormality. Dictated by: Dictated on workstation # [id number]
--- NOTE | 2020-04-01 19:44 | Diagnostic Imaging Report ---
INDICATION: Erythema and swelling in the left foot and ankle AP and lateral views of the left foot are obtained. FINDINGS: No acute fracture or dislocation is identified. No abnormal lytic or sclerotic focus is seen, and there is no radiopaque foreign body. IMPRESSION: No acute abnormality. Dictated by: Dictated on workstation # [id number]
--- NOTE | 2020-04-01 20:44 | CONSULTATION REPORT ---
DATE OF SERVICE: 04/01/2020 REASON FOR CONSULTATION: Painful toenails and painful left foot. HISTORY OF PRESENT ILLNESS: The patient was initially admitted due to a cerebrovascular accident with deficits. He is going through rehabilitation. He was doing fairly well with ambulating with a walker for assistance from the bed to the bathroom until approximately two days ago when his left foot and leg was starting to bother him quite a bit. At this point, he does not want anybody to touch or manipulate the left foot or leg even in bed. He cannot relate any type of injury or problem besides it just hurts all the time. He has difficulty assessing the pain level as well. PAST MEDICAL HISTORY: The patient has a past medical history, which includes CVA 03/26/2020, arthritis. ALLERGIES: THE PATIENT IS ALLERGIC TO PENICILLIN AND CODEINE. SOCIAL HISTORY: The patient is . He is currently retired, a former smoker and denies any alcohol abuse. CURRENT MEDICATIONS: Listed on the patient's chart. FOCUSED LOWER EXTREMITY: The patient has 2/4 dorsalis pedis pulse bilaterally, 0/4 posterior tibial pulse bilaterally. Cap refill time is less than 3 seconds to the hallux bilateral foot. There is edema to the left foot with some erythema present to the dorsal aspect of the foot. NEUROLOGIC: He has intact protective sensation with 10 gram monofilament wire examination bilaterally. He has significant diminished vibratory sensation to the forefoot bilaterally. DERMATOLOGIC: The patient has thick yellow dystrophic toenails with subungual debris x10. There is no open wound to bilateral foot or heel. MUSCULOSKELETAL FINDINGS: The patient has 3/5 muscle strength to the left foot due to guarding. He has pain with manipulation of the ankle joint or the left foot in general and does not want me to manipulate the foot at all. On the right side, there is 4/5 muscle strength to the four major quadrants of the foot. ASSESSMENT: 1. Edema, left foot with recent history of onset of pain. 2. Idiopathic neuropathy. 3. Onychomycosis. PLAN: Various options were discussed with the patient today. His toenails were debrided manually mechanically. Betadine applied. X-rays were ordered for the left foot and ankle, AP and lateral views. A CBC with diff as well as a uric acid was ordered. I understand he has had an elevation in his white count recently. We may want to consider use of oral or IV antibiotics at this point. Job ID: [id number] DocumentID: [id number] Dictated Date: 04/01/2020 17:27:08 Store Administrative Assistant Date: 04/01/2020 20:44:04 Dictated By: MARLENE GARCIA DPM
[2020-04-01 21:00] VITALS: BP 122/62
--- NOTE | 2020-04-01 21:00 | NUR ---
TOOK MEDS WELL WHEN CRUSHED. CALLED PATIENT WHILE NURSE IN ROOM AND NURSE UPDATED HER ON NEGATIVE FOOT XRAY. LOW GRADE TEMP. LEFT FOOT REMAINS VERY TENDER TO TOUCH.
[2020-04-02 05:04] VITALS: BP 124/67
[2020-04-02] MEDS: ACETAMINOPHEN 325 MG TABLET PO PRN (05:23)
--- NOTE | 2020-04-02 07:00 | NUR ---
USED URINAL AND WAS INCONTINENT TONIGHT. HAD TO BE DIRECTED HOW TO USE UTENSILS FOR BREAKFAST, BUT THEN CAUGHT ON AND ABLE TO FEED SELF.
[2020-04-02] MEDS: polyethylene glycoL POWDER 17 GM (MIRALAX) PACK PO SCH ×2 (07:46→19:22)
[2020-04-02] MEDS: DOCUSATE SODIUM 100 MG (COLACE) CAP PO SCH ×2 (07:46→19:22)
[2020-04-02] MEDS: SENNA W/DOCUSATE (SENOKOT S) TABLET PO SCH ×2 (07:46→19:22)
[2020-04-02] MEDS: APIXABAN 5 MG (ELIQUIS) TABLET PO SCH ×2 (08:13→20:52)
[2020-04-02] MEDS: CARVEDILOL 12.5 MG (COREG) TABLET PO SCH ×2 (08:13→20:52)
[2020-04-02] MEDS: amLODIPine 10 MG (NORVASC) TAB PO SCH (08:13)
[2020-04-02] MEDS: CLOPIDOGREL 75 MG (PLAVIX) TABLET PO SCH (08:13)
[2020-04-02] MEDS: FLUTICASONE NASAL SPRAY (FLONASE) 16 GM BTL NS SCH (08:17)
[2020-04-02] MEDS: MICONAZOLE 2% POWDER (DESENEX AF) 90 GM TOP SCH ×2 (08:17→20:52)
[2020-04-02] MEDS: SALINE NASAL SPRAY (OCEAN) 45 ML BTL SCH ×4 (08:18→20:52)
[2020-04-02] MEDS: ZINC OXIDE 16% OINT (BUTT PASTE) 57 GM TUBE TOP SCH ×2 (08:18→20:52)
--- NOTE | 2020-04-02 08:29 | PM&R Progress Note ---
Subjective HPI/CC On Admission Date Seen by Provider: Apr 02, 2020 Time Seen by Provider: 12:45 Subjective/Events-last exam 04/02/20: Uric acid was elevated at 8.[address] Goodwin who ordered the test Toenail care provided Plavix and oral anticoagulants tolerated well Walked in to see him and he had taken his pants shelter down his legs Depends diaper intact 04/01/20: Pt really cant walk very well today Dr. Goodwin will be in for toenail care Reports foot pain but it varies whether he reports it hurts or it doesnt Incontinence now Very confused Eliquis started along with his Plavix 03/31/20: More confused today Dr Barajas evaluated a run of atrial flutter of 160 last night for a brief moment so added Eliquis and maintained on Plavix for carotid stenosis Difficulty transferring Podiatry consult tomorrow 03/30/20: Up in chair today Incontinent now Dysphagia 2 diet tolerated Did not eat lunch Sleepy Vision changes are profound 03/29/20: Patient seems to be progressing very well Able to walk farther today Seems more alert and less confused today Outperforming with therapy today No pain reported ST working with him for swallowing and cognition Checked meds and labs Review of Systems Neurological: Weakness, Incoordination, Confusion Objective Exam Vital Signs Vital Signs Date Time Temp Pulse Resp B/P (MAP) Pulse Ox O2 Delivery O2 Flow Rate FiO2 04/02/20 20:15 Room Air 04/02/20 18:00 37.2 80 18 139/79 (99) 95 Capillary Refill : General Appearance: No Apparent Distress, WD/WN, Chronically ill HEENT: PERRL/EOMI, TMs Normal, Normal ENT Inspection, Pharynx Normal Neck: Full Range of Motion, Normal Inspection, Non Tender, Supple, Carotid Bruit Respiratory: Chest Non Tender, Lungs Clear, Normal Breath Sounds, No Accessory Muscle Use, No Respiratory Distress Cardiovascular: Regular Rate, Rhythm, No Edema, No Gallop, No JVD, No Murmur, Normal Peripheral Pulses Gastrointestinal: Normal Bowel Sounds, No Organomegaly, No Pulsatile Mass, Non Tender, Soft Back: Normal Inspection, No CVA Tenderness, No Vertebral Tenderness Extremity: Normal Capillary Refill, Normal Inspection, Normal Range of Motion, Non Tender, No Calf Tenderness, No Pedal Edema Neurologic/Psychiatric: Alert, Normal Mood/Affect, 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 FIM Transfers Therapy Code Descriptions/Definitions Functional [place] Measure: 0=Not Assessed/NA 4=Minimal Assistance 1=Total Assistance 5=Supervision or Setup 2=Maximal Assistance 6=Modified [place] 3=Moderate Assistance 7=Complete IndependenceSCALE: Activities may be completed with or without assistive devices. 2-Iyesceeowh-vpqdrqu completes the activity by him/herself with no assistance from a helper. 5-Set-up or Clean-up Assistance-helper sets up or cleans up; patient completes activity. [place] assists only prior to or following the activity. 4-Supervision or Touching Assistance-helper provides verbal cues and/or t ouching/steadying and/or contact guard assistance as patient completes activity. Assistance may be provided throughout the activity or intermittently. 3-Partial/Moderate Assistance-helper does LESS THAN HALF the effort. [place] lifts, holds or supports trunk or limbs, but provides less than half the effort. 2-Substantial/Maximal Assistance-helper does MORE THAN HALF the effort. [place] lifts or holds trunk or limbs and provides more than half the effort. 9-Kadtktqpm-mbmxvw does ALL the effort. Patient does none of the effort to complete the activity. Or, the assistance of 2 or more helpers is required for the patient to complete the activity. If activity was not attempted, code reason: 7-Patient Refused. 9-Not Applicable-not attempted and the patient did not perform the activity before the current illness, exacerbation or injury. 10-Not Attempted due to Environmental Limitations-(lack of equipment, weather restraints, etc.). 88-Not Attempted due to Medical Conditions or Safety Concerns. Roll Left to Right (QC): 3 Sit to Lying (QC): 5 Sit to Stand (QC): 2 Chair/Ibn-lt-Wmxst Xfer(QC): 3 Car Transfer (QC): 3 (verbal and tactile cues required. ) Gait Training Does the Patient Walk?: Yes Walk 10 feet (QC): 4 Walk 50 ft with 2 Turns(QC): 4 Walk 150 ft (QC): 88 Walking 10ft/uneven surface-QC: 3 Gait Persons Needed: 1 Gait Assistive Device: FWW Wheelchair Training Does the Pt Use a Wheelchair?: Yes Wheel 50 ft with 2 turns (QC): 3 Wheel 150 ft (QC): 3 (min assist to achieve this distance;) Type of Wheelchair: Manual Stair Training 1 Step (curb) (QC): 88 (approached step but pt unable to safely attempt.) 4 Steps (QC): 88 12 Steps (QC): 88 Balance Picking up an Object (QC): 88 ADL-Treatment Eating (QC): 5 (Based on clincial judgement, pt would require set up assistance with task.) Oral Hygiene (QC): 3 (Min A, pt required cues to rinse and spit, assist to bring cup to mouth and assist bringing spit tray to mouth. Pt able to use toothbrush and brush gums after OT handed pt toothbrush set up with paste.) Shower/Bathe Self (QC): 1 (Pt able to wash UB and feet. Assistance x2 needed to wash buttocks and upper legs) Upper Body Dressing (QC): 3 (Trudi, pt able to doff and don shirt but assistance needed to adjust down trunk) Lower Body Dressing (QC): 1 (Assist x2 in stand for clothing management, assist with all parts.) On/Off Footwear (QC): 3 (ModA, pt able to doff gripper socks but assistance needed to thread on toes. Pt able to pull socks up over rest of foot, assist wtih orientation) Toileting Hygiene (QC): 1 (pt unable to perform toilet hygiene or clothing management. Assist x2 in stand) Toilet Transfer (QC): 1 (assistance x2 to/from [facility]) Assessment/Plan Assessment and Plan Assess & Plan/Chief Complaint Assessment: s/p acute ischemic stroke Bilateral carotid stenosis has f/u [address] Sanders CTA revealed bilateral carotid stenosis >70%, chronically occluded right vertebral artery, left vertebral artery stenosis >70% Vertebral artery stenosis/occlusion Impaired vision in both eyes Dementia 03/06 [facility] HTN HLD DVT prophylaxis: Lovenox Chronic debility and non-ambulatory for 2 years per Atrial flutter noted on Tely 03/30/20 at 160 HR briefly so starte don OAC 03/31/20 Plan: IRF protocol Wheelchair bound at home Statin Monitor closely 1/22/21: Able to ambulate a lot more today Feels good about progress ST to help with swallowing 03/30/20: Advanced diet Incontinence care Vision issues 03/31/20: Added OAC to Plavix for atrial flutter run on Tely last night and reviewed by Dr Barajas Confusion monitoring 04/01/20: Podiatry appreciated Monitor BP OAC and Plavix required 04/02/20: Monitor confusion Continue aggressive therapy OAC and Plavix (1) 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 Status: Acute (2) Carotid stenosis, bilateral Status: Acute (3) Right homonymous hemianopsia due to recent cerebral infarction Status: Acute (4) Vertebral artery stenosis/occlusion Status: Acute (5) Impaired vision in both eyes Status: Acute (6) HLD (hyperlipidemia) Status: Acute (7) HTN (hypertension) Status: Acute AYALA PARKS DO Apr 02, 2020 08:29
--- NOTE | 2020-04-02 10:03 | Physical Therapy Daily Note ---
PT Daily Note-Current Subjective Pt is laying Supine in bed upon arrival. Pt agrees to PT/OT co-treat. Mental Status Patient Orientation: Person, Confused Transfers SCALE: Activities may be completed with or without assistive devices. 9-Fxsyftxyfv-hnpbsqo completes the activity by him/herself with no assistance from a helper. 5-Set-up or Clean-up Assistance-helper sets up or cleans up; patient completes activity. [place] assists only prior to or following the activity. 4-Supervision or Touching Assistance-helper provides verbal cues and/or touching/steadying and/or contact guard assistance as patient completes activity. Assistance may be provided throughout the activity or intermittently. 3-Partial/Moderate Assistance-helper does LESS THAN HALF the effort. [place] lifts, holds or supports trunk or limbs, but provides less than half the effort. 2-Substantial/Maximal Assistance-helper does MORE THAN HALF the effort. [place] lifts or holds trunk or limbs and provides more than half the effort. 5-Ghcaffqlv-kcwldx does ALL the effort. Patient does none of the effort to complete the activity. Or, the assistance of 2 or more helpers is required for the patient to complete the activity. If activity was not attempted, code reason: 7-Patient Refused. 9-Not Applicable-not attempted and the patient did not perform the activity before the current illness, exacerbation or injury. 10-Not Attempted due to Environmental Limitations-(lack of equipment, weather restraints, etc.). 88-Not Attempted due to Medical Conditions or Safety Concerns. Wheelchair Training Does the Pt Use a Wheelchair?: Yes Wheel 50 ft with 2 turns (QC): 2 Type of Wheelchair: Manual Exercises Seated Therapy Exercises: Ankle pumps, Long arc quads, Hip flexion, Kicking activity, Hamstring Curls Seated Reps: 15 Treatments PT/OT cotreat [id number] due to the need of 2 clinicians that an manager rehab would be unable to perform. Pt began tx laying in bed. Pt transferred to EOB and stated he needed to use the restroom. Pt transferred to BSC from EOB with maximal cues to step with feet. OT performed hygiene and needed assist x2 to stand and to perform. pt then transferred to w/c and propelled self to therapy gym with max cues to turn w/c to the R. In gym, pt transferred to mat from w/c and participated in cone reaching activity done 2x through. 10 cones were various placed one by one on pt's R side to encourage visual scanning on R. Once pt grabbed cone, pt was encouraged to placed the cone in various places towards R side. The first 10 cones, pt required max cues to proceed through activities steps, but the second 10 cones, pt was able to proceed through steps with minimal cues. Pt then participated in table top activity to encourage R visual scanning, functional reaching and activity tolerance. Pt transferred back to w/c from therapy mat and propelled self to room. pt required minimal cues to turn to the L with w/c. In room, pt transferred from w/c to recliner. [id number]: Pt repositioned to comfort and all needs met, call light in hand. Assessment Current Status: Fair Progress Focused on looking and finding R side. Pt admits cannot see it mostly just feels for things on R side, continued to encourage turning head to R side. PT Short Term Goals Short Term Goals Time Frame: Apr 11, 2020 Roll Left & Right: 5 Sit to lyin Lying to sitting on side of be: 5 Sit to stand: 4 Chair/wdp-mi-lnmor transfer: 4 Walk 10 feet: 4 Walk 50 feet with two turns: 3 PT Transfer Driver Goals Mcfp Goals PT Transfer Driver Goals Time Frame: Apr 25, 2020 Roll Left & Right (QC): 6 Sit to Lying (QC): 6 Lying-Sitting on Side/Bed(QC): 6 Sit to Stand (QC): 6 Chair/Ixl-os-Nhcbs Xfer(QC): 6 Toilet Transfer (QC): 6 Car Transfer (QC): 4 Does the Patient Walk: Yes Walk 10 feet (QC): 4 Walk 50ft with 2 Turns (QC): 4 Walk 150 ft (QC): 9 Walking 10ft on Uneven Surface: 3 1 Step (curb) (QC): 3 4 Steps (QC): 9 12 Steps (QC): 9 Picking up an Object (QC): 9 Does the Pt use WC or Scooter?: Yes Wheel 50 feet with 2 turns (QC: 6 Type: Manual Wheel 150 feet: 6 Type: Manual PT Plan Problem List Problem List: Activity Tolerance, Functional Strength, Safety, Balance, Transfer Treatment/Plan Treatment Plan: Continue Plan of Care Treatment Plan: Bed Mobility, Education, Functional Activity Kera, Functional Strength, Group Therapy, Gait, Safety, Therapeutic Exercise, Transfers Treatment Duration: Apr 25, 2020 Frequency: At least 5 of 7 days/Wk (IRF) Estimated Hrs Per Day: 1.5 hours per day Patient and/or Family Agrees t: Yes Safety Risks/Education Patient Education: Transfer Techniques, Correct Positioning, W/C Management, Safety Issues Teaching Recipient: Patient Teaching Methods: Discussion Response to Teaching: Verbalize Understanding Time/GCodes Time In: 900 Time Out: 1415 Total Billed Treatment Time: 75 Total Billed Treatment 1, WCH (15m), FA x2 (30m) & EX (15m) Co-treat w/OT for 60m (900-1000) 3796-1022: 1, FA (15m) CASSANDRA MATTHEWS PTA Apr 02, 2020 10:03
--- NOTE | 2020-04-02 11:02 | Occupational Ther Daily Note ---
OT Current Status-Daily Note Subjective Pt stated "what am I doing?" after discussion on standing to transfer to w/c using FWW. OT restated process of standing and transferring to w/c. Mental Status/Objective Patient Orientation: Confused ADL-Treatment Therapy Code Descriptions/Definitions Functional [place] Measure: 0=Not Assessed/NA 4=Minimal Assistance 1=Total Assistance 5=Supervision or Setup 2=Maximal Assistance 6=Modified [place] 3=Moderate Assistance 7=Complete IndependenceSCALE: Activities may be completed with or without assistive devices. 2-Bhvubddtfl-zknnvrj completes the activity by him/herself with no assistance from a helper. 5-Set-up or Clean-up Assistance-helper sets up or cleans up; patient completes activity. [place] assists only prior to or following the activity. 4-Supervision or Touching Assistance-helper provides verbal cues and/or touching/steadying and/or contact guard assistance as patient completes activity. Assistance may be provided throughout the activity or intermittently. 3-Partial/Moderate Assistance-helper does LESS THAN HALF the effort. [place] lifts, holds or supports trunk or limbs, but provides less than half the effort. 2-Substantial/Maximal Assistance-helper does MORE THAN HALF the effort. [place] lifts or holds trunk or limbs and provides more than half the effort. 6-Cqgyolglx-egxaci does ALL the effort. Patient does none of the effort to complete the activity. Or, the assistance of 2 or more helpers is required for the patient to complete the activity. If activity was not attempted, code reason: 7-Patient Refused. 9-Not Applicable-not attempted and the patient did not perform the activity before the current illness, exacerbation or injury. 10-Not Attempted due to Environmental Limitations-(lack of equipment, weather restraints, etc.). 88-Not Attempted due to Medical Conditions or Safety Concerns. Upper Body Dressing (QC): 2 (MaxA, pt able to thread L and head through. Assistance needed to find front of shirt and redirect R hand in correct hole) Lower Body Dressing (QC): 1 (Assist with all parts and assist x2 in stand for pant hike.) Toileting Hygiene (QC): 1 (pt unable to perform clothing managment and hygiene) Toilet Transfer (QC): 1 (Assist x2 and max cues to step with feet) Other Treatment PT/OT cotreat [id number] due to the need of 2 clinicians that an rehabilitation program coordinator would be unable to perform. Pt began tx laying in bed. Pt transferred to EOB and stated he needed to use the restroom. Pt transferred to [facility] [place] with maximal cues to step with feet. OT performed hygiene and needed assist x2 to stand and to perform. pt then transferred to w/c and propelled self to therapy gym with max cues to turn w/c to the R. In gym, pt transferred to mat from / and participated in cone reaching activity done 2x through. 10 cones were various placed one by one on pt's R side to encourage visual scanning on R. Once pt grabbed cone, pt was encouraged to placed the cone in various places towards R side. The first 10 cones, pt required max cues to proceed through activities steps, but the second 10 cones, pt was able to proceed through steps with minimal cues. Pt then participated in table top activity to encourage R visual scanning, functional reaching and activity tolerance. Pt transferred back to / from therapy mat and propelled self to room. pt required minimal cues to turn to the L with w/c. In room, pt transferred from w/c to recliner. [id number]: Pt participated in minimal resistance theraband exercise doing 10 reps each for the following exercise; shoulder flexion, elbow flexion/extension and shoulder abduction. Pt required a demo by OT first and once given the theraband, pt was unable to repeat movement so OT performed hand over hand assist to complete the movement needed. Pt finished tx in recliner, chair alarm on, call light in reach and all needs met. Education OT Patient Education: Energy conservation, Exercise program, Modified ADL techniques, Progress toward Goal/Update tx plan, Purpose of tx/functional activities, Safety issues, Transfer techniques, W/C management Teaching Recipient: Patient Teaching Methods: Demonstration, Discussion Response to Teaching: Unable to Return Demonstration, Reinforcement Needed OT Short Term Goals Short Term Goals Time Frame: Apr 19, 2020 Oral hygiene: 5 Toileting hygiene: 3 Shower/bathe self: 3 Upper body dressin Lower body dressin OT Care Home Goals Care Home Goals Time Frame: Apr 26, 2020 Eating (QC): 6 Oral Hygiene (QC): 6 Toileting Hygiene (QC): 6 Shower/Bathe Self (QC): 4 Upper Body Dressing (QC): 5 Lower Body Dressing (QC): 5 On/Off Footwear (QC): 5 Additional Goals: 1-Demonstrate ADL Tasks, 2-Verbalize Understanding, 3-ImproveStrength/Kera 1=Demonstrate adherence to instructed precautions during ADL tasks. 2=Patient will verbalize/demonstrate understanding of assistive devices/modifications for ADL. 3=Patient will improve strength/tolerance for activity to enable patient to perform ADL's. OT Education/Plan Problem List/Assessment Assessment: Decreased Activ Tolerance, Decreased UE Strength, Impaired Funct Balance, Impaired I ADL's, Impaired Self-Care Skills, Restricted Funct UE ROM, Visual-Perceptual Deficit Discharge Recommendations Plan/Recommendations: Continue POC Treatment Plan/Plan of Care Patient would benefit from OT for education, treatment and training to promote independence in ADL's, mobility, safety and/or upper extremity function for ADL's. Plan of Care: ADL Retraining, Functional Mobility, Group Exercise/Act as Ind, UE Funct Exercise/Act, UE Neuromus Re-Ed/Coord, Visual/Perceptual Retrain, W/C Management Training Treatment Duration: Apr 26, 2020 Frequency: At least 5 of 7 days/Wk (IRF) Estimated Hrs Per Day: 1.5 hours per day Agreement: Yes Rehab Potential: Fair Time/GCodes Start Time: 09:00 Stop Time: 10:15 Total Time Billed (hr/min): 75 Billed Treatment Time OT/PT cotreat [id number] OT tx: [id number] 1, ADL (15), EX (15), FA 3 (40) LUCILLE PACE OT Apr 02, 2020 11:02
--- NOTE | 2020-04-02 12:25 | Cardiology Progress Note ---
Subjective Date Seen by Provider: Apr 02, 2020 Time Seen by Provider: 12:24 Subjective/Events-last exam patient is laying down in bed. no new complaint. Complaining of fatigue and loss of energy Review of Systems General: No Chills, No Night Sweats; Fatigue, Malaise; No Appetite, No Other Pulmonary: No Dyspnea, No Cough, No Pleuritic Chest Pain, No Other Cardiovascular: No: Chest Pain, Palpitations, Orthopnea, Paroxysmal Noc. Dyspnea, Edema, Lt Headedness, Other Objective-Cardiology Exam Last Set of Vital Signs Vital Signs 04/02/20 04/02/20 05:04 09:00 Temp 37.1 Pulse 72 Resp 18 B/P (MAP) 124/67 (86) Pulse Ox 95 O2 Delivery Room Air Capillary Refill : I&O Intake and Output 04/02/20 00:00 Intake Total 1150 ml Output Total 300 ml Balance 850 ml Intake Oral 1150 ml Output Urine Total 300 ml # Voids 5 # Bowel Movements 1 General: Alert, Oriented X3, Cooperative HEENT: Atraumatic Neck: Supple, No JVD, No Thyromegaly Lungs: Clear to Auscultation, Normal Air Movement Heart: Regular Rate, Normal S1, Normal S2, No Murmurs Abdomen: Normal Bowel Sounds, Soft, No Tenderness, No Hepatosplenomegaly, No Masses Extremities: No Clubbing, No Cyanosis, No Edema, Normal Pulses, No Tenderness/Swelling Skin: No Rashes, No Breakdown, No Significant Lesion Neuro: Normal Speech Psych/Mental Status: Mental Status NL, Mood NL Results Lab Laboratory Tests 04/01/20 18:10 A/P-Cardiology Admission Diagnosis CVA Carotid artery stenosis Paroxysmal atrial flutter HTN Assessment/Plan Neurologic deficits consisting of confusion, dyphasia, and R-sided vision loss: CVA (acute infarction involving most of the left posterior cerebral artery distribution) vs mass effect (hypodensities along the temporal lobe more in the white matter, worrisome for an underlying mass per CT and MRI of the head on 03-25-20 and 03-26-20, respectively) Carotid artery stenosis, CTA of 03-26-20: 70% stenosis of the right internal carotid artery. There is a 70 to 80% stenosis of the left internal carotid artery. 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 The left vertebral artery has approximately 70% stenosis at its origin and is fairly prominent vessel throughout the remainder of its course. Per Dr. Sanders's recommendations, continue on Plavix and f/u in 6 weeks as outpatient. Brief atrial flutter with 2:1 AV conduction on 03/30/20 (lasting only a few seconds), started on Eliquis. Continue to monitor. Echo of 03/26/20: LVEF 60-65%, grade 1 diastolic dysfunction, mild to mod enlargement of LA, PASP 25 - 30 mmHg HTN, continue to monitor. HLD - started on Lipitor. BERNICE MONTERO MD Apr 02, 2020 12:25
--- NOTE | 2020-04-02 13:00 | NUR ---
Dr Goodwin and Dr Kessler notified of uric acid level 8.5. No new orders received
--- NOTE | 2020-04-02 13:30 | Speech Therapy Daily Note ---
Speech Daily Progress Note Subjective Date Seen by Provider: Apr 02, 2020 Time Seen by Provider: 00:30 Patient was resting in bed, patient was sleepy and required frequent prompts to engage. Objective Patient completed a series of fill in the blanks with verbally presented stimuli at 80% given moderate verbal cues. Patient consumed a nectar consistency liquids while noted to utilize compensatory strategy of small sips as directed. Assessment Assessment Current Status: Fair Progress Treatment Plan Continue Plan of Care Speech Short Term Goals Short Term Goals Short Term Goals 1) Patient will complete memory tasks related to his daily needs with 80% accuracy given minimal cues. 2) Patient will complete tasks safety awareness to his daily needs with 80% accuracy given minimal cues. 3) Patient will complete problem solving tasks related to his daily needs with 80% accuracy given minimal cues. 4) Patient will tolerate least restrictive diet level without s/s of aspiration at 80% with minimal cues. 5) Patient/caregiver will utilize compensatory strategies as trained at 90% with minimal cues. Speech Personal Banking Assistant Goals Retirement Goals Patient will improve cognitive-communication abilities in order to complete daily tasks with decreased assistance. Patient will maintain adequate nutrition/hydration via safe effective swallow function. Speech-Plan Patient/Family Goals Patient/Family Goals: Patient plans on returning to his home where he lives with his . Treatment Plan Speech Therapy Treatment Plan: Continue Plan of Care Treatment Duration: Apr 12, 2020 Frequency: 4 times per week (Patient will receive skilled ST 4-5x per week) Estimated Hrs Per Day: .5 hour per day Rehab Potential: Fair Barriers to Learning: Patient's current CVA as well as previous fall with injury Pt/Family Agrees to Plan: Yes Safety Risks/Education Teaching Methods: Demonstration, Discussion Response to Teaching: Verbalize Understanding, Return Demonstration Education Topics Provided: Continued safety within his room, communication of wants/needs Time Speech Therapy Time In: 08:30 Speech Therapy Time Out: 09:00 Total Billed Time: 30 Billed Treatment Time 1MARCIO SLTS No [place], BETHAN[address] ST Apr 02, 2020 13:30
[2020-04-02] MEDS: SALINE NASAL SPRAY (OCEAN) 45 ML BTL PRN (13:36)
[2020-04-02 18:00] VITALS: BP 139/79
[2020-04-03 06:02] VITALS: BP 102/57
[2020-04-03] MEDS: polyethylene glycoL POWDER 17 GM (MIRALAX) PACK PO SCH ×2 (08:22→20:42)
[2020-04-03] MEDS: SENNA W/DOCUSATE (SENOKOT S) TABLET PO SCH ×2 (08:22→20:42)
[2020-04-03] MEDS: DOCUSATE SODIUM 100 MG (COLACE) CAP PO SCH ×2 (08:23→20:42)
--- NOTE | 2020-04-03 08:45 | PM&R Progress Note ---
Subjective HPI/CC On Admission Date Seen by Provider: Apr 03, 2020 Time Seen by Provider: 09:00 Subjective/Events-last exam 04/03/20: Left foot continues to be an issue Slightly red so I did start him on Keflex 500 QID I did speak with Dr. Goodwin who recommended one dose of steroid to see if we can decrease the inflammation for any type of gout problem No other issues reported 04/02/20: Uric acid was elevated at 8.[address] Goodwin who ordered the test Toenail care provided Plavix and oral anticoagulants tolerated well Walked in to see him and he had taken his pants usp down his legs Depends diaper intact 04/01/20: Pt really cant walk very well today Dr. Goodwin will be in for toenail care Reports foot pain but it varies whether he reports it hurts or it doesnt Incontinence now Very confused Eliquis started along with his Plavix 03/31/20: More confused today Dr Barajas evaluated a run of atrial flutter of 160 last night for a brief moment so added Eliquis and maintained on Plavix for carotid stenosis Difficulty transferring Podiatry consult tomorrow 03/30/20: Up in chair today Incontinent now Dysphagia 2 diet tolerated Did not eat lunch Sleepy Vision changes are profound 03/29/20: Patient seems to be progressing very well Able to walk farther today Seems more alert and less confused today Outperforming with therapy today No pain reported ST working with him for swallowing and cognition Checked meds and labs Review of Systems Musculoskeletal: foot pain Objective Exam Vital Signs Vital Signs Date Time Temp Pulse Resp B/P (MAP) Pulse Ox O2 Delivery O2 Flow Rate FiO2 04/03/20 20:13 Room Air 04/03/20 18:37 36.8 04/03/20 17:21 85 20 108/62 (77) 95 Capillary Refill : General Appearance: No Apparent Distress, WD/WN, Chronically ill HEENT: PERRL/EOMI, TMs Normal, Normal ENT Inspection, Pharynx Normal Neck: Full Range of Motion, Normal Inspection, Non Tender, Supple, Carotid Bruit Respiratory: Chest Non Tender, Lungs Clear, Normal Breath Sounds, No Accessory Muscle Use, No Respiratory Distress Cardiovascular: Regular Rate, Rhythm, No Edema, No Gallop, No JVD, No Murmur, Normal Peripheral Pulses Gastrointestinal: Normal Bowel Sounds, No Organomegaly, No Pulsatile Mass, Non Tender, Soft Back: Normal Inspection, No CVA Tenderness, No Vertebral Tenderness Extremity: Normal Capillary Refill, Normal Inspection, Normal Range of Motion, Non Tender, No Calf Tenderness, No Pedal Edema Neurologic/Psychiatric: Alert, Normal Mood/Affect, Abnormal candy separator hard II-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 FIM Transfers Therapy Code Descriptions/Definitions Functional [place] Measure: 0=Not Assessed/NA 4=Minimal Assistance 1=Total Assistance 5=Supervision or Setup 2=Maximal Assistance 6=Modified [place] 3=Moderate Assistance 7=Complete IndependenceSCALE: Activities may be completed with or without assistive devices. 6-Vbqtxjfazw-jyhjusy completes the activity by him/herself with no assistance from a helper. 5-Set-up or Clean-up Assistance-helper sets up or cleans up; patient completes activity. [place] assists only prior to or following the activity. 4-Supervision or Touching Assistance-helper provides verbal cues and/or touching/steadying and/or contact guard assistance as patient completes activity. Assistance may be provided throughout the activity or intermittently. 3-Partial/Moderate Assistance-helper does LESS THAN HALF the effort. [place] lifts, holds or supports trunk or limbs, but provides less than half the effort. 2-Substantial/Maximal Assistance-helper does MORE THAN HALF the effort. [place] lifts or holds trunk or limbs and provides more than half the effort. 9-Qvducnpro-vgcfyy does ALL the effort. Patient does none of the effort to complete the activity. Or, the assistance of 2 or more helpers is required for the patient to complete the activity. If activity was not attempted, code reason: 7-Patient Refused. 9-Not Applicable-not attempted and the patient did not perform the activity before the current illness, exacerbation or injury. 10-Not Attempted due to Environmental Limitations-(lack of equipment, weather restraints, etc.). 88-Not Attempted due to Medical Conditions or Safety Concerns. Roll Left to Right (QC): 3 Sit to Lying (QC): 5 Sit to Stand (QC): 2 Chair/Xkh-xh-Mmfbr Xfer(QC): 3 Car Transfer (QC): 3 (verbal and tactile cues required. ) Gait Training Does the Patient Walk?: Yes Walk 10 feet (QC): 4 Walk 50 ft with 2 Turns(QC): 4 Walk 150 ft (QC): 88 Walking 10ft/uneven surface-QC: 3 Gait Persons Needed: 1 Gait Assistive Device: FWW Wheelchair Training Does the Pt Use a Wheelchair?: Yes Wheel 50 ft with 2 turns (QC): 2 Wheel 150 ft (QC): 3 (min assist to achieve this distance;) Type of Wheelchair: Manual Stair Training 1 Step (curb) (QC): 88 (approached step but pt unable to safely attempt.) 4 Steps (QC): 88 12 Steps (QC): 88 Balance Picking up an Object (QC): 88 ADL-Treatment Eating (QC): 5 (Based on clincial judgement, pt would require set up assistance with task.) Oral Hygiene (QC): 3 (Min A, pt required cues to rinse and spit, assist to bring cup to mouth and assist bringing spit tray to mouth. Pt able to use toothbrush and brush gums after OT handed pt toothbrush set up with paste.) Shower/Bathe Self (QC): 1 (Pt able to wash UB and feet. Assistance x2 needed to wash buttocks and upper legs) Upper Body Dressing (QC): 2 (MaxA, pt able to thread L and head through. Marty tance needed to find front of shirt and redirect R hand in correct hole) Lower Body Dressing (QC): 1 (Assist with all parts and assist x2 in stand for pant hike.) On/Off Footwear (QC): 3 (ModA, pt able to doff gripper socks but assistance needed to thread on toes. Pt able to pull socks up over rest of foot, assist wtih orientation) Toileting Hygiene (QC): 1 Toilet Transfer (QC): 1 Assessment/Plan Assessment and Plan Assess & Plan/Chief Complaint Assessment: s/p acute ischemic stroke Bilateral carotid stenosis has f/u [address] Sanders CTA revealed bilateral carotid stenosis >70%, chronically occluded right vertebral artery, left vertebral artery stenosis >70% Vertebral artery stenosis/occlusion Impaired vision in both eyes Dementia 03/06 SLUMS HTN HLD DVT prophylaxis: Lovenox Chronic debility and non-ambulatory for 2 years per Atrial flutter noted on Tely 03/30/20 at 160 HR briefly so starte don OAC 03/31/20 Left foot pain cellulitis vs. gout? Keflex and Solumedrol initiated 04/03/20 Plan: IRF protocol Wheelchair bound at home Statin Monitor closely 03/29/20: Able to ambulate a lot more today Feels good about progress ST to help with swallowing 03/30/20: Advanced diet Incontinence care Vision issues 03/31/20: Added OAC to Plavix for atrial flutter run on Tely last night and reviewed by Dr Barajas Confusion monitoring 04/01/20: Podiatry appreciated Monitor BP OAC and Plavix required 04/02/20: Monitor confusion Continue aggressive therapy OAC and Plavix 04/03/20: Left foot gout versus cellulitis 04/03/20 Monitor closely 1 dose of steroids should not place him at risk for bleeding (1) 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 Status: Acute (2) Carotid stenosis, bilateral Status: Acute (3) Right homonymous hemianopsia due to recent cerebral infarction Status: Acute (4) Vertebral artery stenosis/occlusion Status: Acute (5) Impaired vision in both eyes Status: Acute (6) HLD (hyperlipidemia) Status: Acute (7) HTN (hypertension) Status: Acute AYALA PARKS DO Apr 03, 2020 08:45
[2020-04-03] MEDS: CARVEDILOL 12.5 MG (COREG) TABLET PO SCH ×2 (09:07→20:41)
[2020-04-03] MEDS: amLODIPine 10 MG (NORVASC) TAB PO SCH (09:07)
[2020-04-03] MEDS: MICONAZOLE 2% POWDER (DESENEX AF) 90 GM TOP SCH ×2 (09:07→20:41)
[2020-04-03] MEDS: APIXABAN 5 MG (ELIQUIS) TABLET PO SCH ×2 (09:07→20:42)
[2020-04-03] MEDS: CLOPIDOGREL 75 MG (PLAVIX) TABLET PO SCH (09:07)
[2020-04-03] MEDS: SALINE NASAL SPRAY (OCEAN) 45 ML BTL SCH ×4 (09:08→20:40)
[2020-04-03] MEDS: ZINC OXIDE 16% OINT (BUTT PASTE) 57 GM TUBE TOP SCH ×2 (09:08→20:41)
[2020-04-03] MEDS: FLUTICASONE NASAL SPRAY (FLONASE) 16 GM BTL NS SCH (09:09)
[2020-04-03] MEDS: ACETAMINOPHEN 325 MG TABLET PO PRN ×2 (09:12→17:41)
--- NOTE | 2020-04-03 10:05 | Physical Therapy Daily Note ---
PT Daily Note-Current Subjective Pt. up in recliner and initially adamant that he is not working today. This PSYCHIATRIC ARNP as well as OT (co Rx situation) discussed and educated pt. that he is safe and in a situation where he needs to give his all to get better . Pt eventually agreed but needed reminded repeatedly during the Rx of his goals etc. Pt. does c/o pain in his left foot but cannot identify exactly where. Pain Location Body Site: Foot Pain Description: Stabbing Appearance much difficulty gazing to right Mental Status Patient Orientation: Person Transfers SCALE: Activities may be completed with or without assistive devices. 5-Vlbgmdnaah-qsvmayt completes the activity by him/herself with no assistance from a helper. 5-Set-up or Clean-up Assistance-helper sets up or cleans up; patient completes activity. [place] assists only prior to or following the activity. 4-Supervision or Touching Assistance-helper provides verbal cues and/or touchin g/steadying and/or contact guard assistance as patient completes activity. Assistance may be provided throughout the activity or intermittently. 3-Partial/Moderate Assistance-helper does LESS THAN HALF the effort. [place] lifts, holds or supports trunk or limbs, but provides less than half the effort. 2-Substantial/Maximal Assistance-helper does MORE THAN HALF the effort. [place] lifts or holds trunk or limbs and provides more than half the effort. 8-Ujcpabwhj-rvvcjw does ALL the effort. Patient does none of the effort to complete the activity. Or, the assistance of 2 or more helpers is required for the patient to complete the activity. If activity was not attempted, code reason: 7-Patient Refused. 9-Not Applicable-not attempted and the patient did not perform the activity before the current illness, exacerbation or injury. 10-Not Attempted due to Environmental Limitations-(lack of equipment, weather restraints, etc.). 88-Not Attempted due to Medical Conditions or Safety Concerns. Sit to Stand (QC): 3 Chair/Onv-on-Pvhva Xfer(QC): 3 much emphasis given to SPTs toward left and right, some with FWW and others without. Pt. appearing fearful at times and needs much encouragement to follow safe technique, requires MOD 75% of time min 25 % of time Gait Training Does the Patient Walk?: Yes Walk 10 feet (QC): 3 Gait Persons Needed: 2 Gait Assistive Device: FWW 65 ft FWW, mod assist and w/c to follow. Pt. appears very fearful and requires constant cuing to continue. Wheelchair Training Does the Pt Use a Wheelchair?: Yes Wheel 50 ft with 2 turns (QC): 3 Type of Wheelchair: Manual assist to steer Exercises NuStep Minutes: 8 NuStep Workload: 4 Treatments so RX OT PT for ADLs to dress and TRFs , w/c mob, gait and therex, Assessment Current Status: Fair Progress pt. does not always give full effort, likely fearful , vision issues contribute to this, confusion as well PT Short Term Goals Short Term Goals Time Frame: Apr 11, 2020 Roll Left & Right: 5 Sit to lyin Lying to sitting on side of be: 5 Sit to stand: 4 Chair/xpm-tf-gzhkv transfer: 4 Walk 10 feet: 4 Walk 50 feet with two turns: 3 PT Alf Goals Software Manager Goals PT Alf Goals Time Frame: Apr 25, 2020 Roll Left & Right (QC): 6 Sit to Lying (QC): 6 Lying-Sitting on Side/Bed(QC): 6 Sit to Stand (QC): 6 Chair/Cxr-ui-Vmkal Xfer(QC): 6 Toilet Transfer (QC): 6 Car Transfer (QC): 4 Does the Patient Walk: Yes Walk 10 feet (QC): 4 Walk 50ft with 2 Turns (QC): 4 Walk 150 ft (QC): 9 Walking 10ft on Uneven Surface: 3 1 Step (curb) (QC): 3 4 Steps (QC): 9 12 Steps (QC): 9 Picking up an Object (QC): 9 Does the Pt use WC or Scooter?: Yes Wheel 50 feet with 2 turns (QC: 6 Type: Manual Wheel 150 feet: 6 Type: Manual PT Plan Treatment/Plan Treatment Plan: Continue Plan of Care Treatment Plan: Bed Mobility, Education, Functional Activity Kera, Functional Strength, Group Therapy, Gait, Safety, Therapeutic Exercise, Transfers Treatment Duration: Apr 25, 2020 Frequency: At least 5 of 7 days/Wk (IRF) Estimated Hrs Per Day: 1.5 hours per day Patient and/or Family Agrees t: Yes Safety Risks/Education Patient Education: Gait Training, Transfer Techniques, Correct Positioning, W/C Management, Disease Process, Safety Issues Teaching Recipient: Patient Teaching Methods: Demonstration, Discussion Response to Teaching: Verbalize Understanding, Return Demonstration, Reinforcement Needed Time/GCodes Time In: 900 Time Out: 1000 Total Billed Treatment Time: 60 Total Billed Treatment 1,FA35m,GT15m,EX10m JULIANN WITT PSYCHIATRIC ARNP Apr 03, 2020 10:05
--- NOTE | 2020-04-03 10:33 | Occupational Ther Daily Note ---
OT Current Status-Daily Note Subjective Pt stated that he was not going to do tx with OT/PT. Pt educated on the benefits of therapy and pt agreed to OT/PT cotreat with max encouragement. Mental Status/Objective Patient Orientation: Confused ADL-Treatment Therapy Code Descriptions/Definitions Functional [place] Measure: 0=Not Assessed/NA 4=Minimal Assistance 1=Total Assistance 5=Supervision or Setup 2=Maximal Assistance 6=Modified [place] 3=Moderate Assistance 7=Complete IndependenceSCALE: Activities may be completed with or without assistive devices. 2-Miszlcclsi-jbreezw completes the activity by him/herself with no assistance from a helper. 5-Set-up or Clean-up Assistance-helper sets up or cleans up; patient completes activity. [place] assists only prior to or following the activity. 4-Supervision or Touching Assistance-helper provides verbal cues and/or touching/steadying and/or contact guard assistance as patient completes activity. Assistance may be provided throughout the activity or intermittently. 3-Partial/Moderate Assistance-helper does LESS THAN HALF the effort. [place] lifts, holds or supports trunk or limbs, but provides less than half the effort. 2-Substantial/Maximal Assistance-helper does MORE THAN HALF the effort. [place] lifts or holds trunk or limbs and provides more than half the effort. 9-Qeobqyjel-dnwdza does ALL the effort. Patient does none of the effort to complete the activity. Or, the assistance of 2 or more helpers is required for the patient to complete the activity. If activity was not attempted, code reason: 7-Patient Refused. 9-Not Applicable-not attempted and the patient did not perform the activity before the current illness, exacerbation or injury. 10-Not Attempted due to Environmental Limitations-(lack of equipment, weather restraints, etc.). 88-Not Attempted due to Medical Conditions or Safety Concerns. Oral Hygiene (QC): 2 (MaxA, assistance needed to put toothpaste on brush. pt a ble to put brush in mouth, but assistance needed to throughouly brush teeth as pt performed biting movements) Upper Body Dressing (QC): 4 (Set up) Lower Body Dressing (QC): 1 (Assistance needed to thread legs through pants and assist x2 to perform pants hike while standing. Pt able to pull pants above knees in recliner) Other Treatment PT/OT cotreat 8722-1236: Pt started tx in recliner. 139/68 blood pressure. O2 saturation 97%. Pt stated that he was not going to participate in therapy today. After pt educated on benefits of therapy, pt participated in dressing in recl iner. Pt stated that he was having pain in foot, but could not identify where the pain was coming from. [facility] using FWW with being educated on reaching back for armrest and also to push up from the armrest before standing. pt propelled self out of room in [facility] and in [place] area. Pt stood with FWW and ambulated towards therapy gym (65 ft FWW, mod assist and w/c to follow). Pt reassured during walk that he was not going to fall. In therapy gym, pt transferred from [facility] to [facility]. Pt participated in bike exercise for 5 min to work on bilateral integration BUEs, pre-gait activity, and activity tolerance. Pt transferred back to [facility] and propelled self to room. Pt transferred back to [facility] from [facility] with FWW. Pt educated on standing before transferring to ensure his safety. OT tx [id number]: pt participated in oral hygiene. Pt attempted to put the tub on toothpaste in mouth then redirected to put the toothpaste on the toothbrush. Pt attempted to put the empty toothbrush in mouth but redirected to put toothpaste on the brush before. OT assisted in putting the paste on brush. Pt performed oral hygiene by biting on toothbrush so OT thoroughly brushed pt's teeth. Pt washed face with wet washcloth, set up assist. Pt then participated in minimal resistance theraband exercises 10x of the following, elbow flexion/extension. After demonstrating each exercise, pt needed hand over hand assistance to perform exercise. Pt left in recliner with chair alarm on, call light in reach and all needs met. Education OT Patient Education: Energy conservation, Exercise program, Modified ADL techniques, Progress toward Goal/Update tx plan, Purpose of tx/functional activities, Reviewed precautions, Safety issues, Transfer techniques, W/C management Teaching Recipient: Patient Teaching Methods: Demonstration, Discussion Response to Teaching: Unable to Comprehend, Reinforcement Needed OT Short Term Goals Short Term Goals Time Frame: Apr 19, 2020 Oral hygiene: 5 Toileting hygiene: 3 Shower/bathe self: 3 Upper body dressin Lower body dressin OT Playground Equipment Erector Goals Playground Equipment Erector Goals Time Frame: Apr 26, 2020 Eating (QC): 6 Oral Hygiene (QC): 6 Toileting Hygiene (QC): 6 Shower/Bathe Self (QC): 4 Upper Body Dressing (QC): 5 Lower Body Dressing (QC): 5 On/Off Footwear (QC): 5 Additional Goals: 1-Demonstrate ADL Tasks, 2-Verbalize Understanding, 3- ImproveStrength/Kera 1=Demonstrate adherence to instructed precautions during ADL tasks. 2=Patient will verbalize/demonstrate understanding of assistive devices/modifications for ADL. 3=Patient will improve strength/tolerance for activity to enable patient to perform ADL's. OT Education/Plan Problem List/Assessment Assessment: Decreased Activ Tolerance, Decreased Safety Aware, Decreased UE Strength, Impaired Cognition, Impaired Funct Balance, Impaired I ADL's, Impaired Self-Care Skills, Visual-Perceptual Deficit Discharge Recommendations Plan/Recommendations: Continue POC Treatment Plan/Plan of Care Patient would benefit from OT for education, treatment and training to promote independence in ADL's, mobility, safety and/or upper extremity function for ADL's. Plan of Care: ADL Retraining, Functional Mobility, Group Exercise/Act as Ind, UE Funct Exercise/Act, UE Neuromus Re-Ed/Coord, Visual/Perceptual Retrain, W/C Management Training Treatment Duration: Apr 26, 2020 Frequency: At least 5 of 7 days/Wk (IRF) Estimated Hrs Per Day: 1.5 hours per day Agreement: Yes Rehab Potential: Fair Time/GCodes Start Time: 09:00 Stop Time: 10:15 Total Time Billed (hr/min): 75 Billed Treatment Time [id number]: PT/OT cotreat [id number]: OT tx 1, ADL 2 (30), FA 2 (30), EX (15) LUCILLE PACE OT Apr 03, 2020 10:33
--- NOTE | 2020-04-03 11:01 | Speech Therapy Daily Note ---
Speech Daily Progress Note Subjective Date Seen by Provider: Apr 03, 2020 Time Seen by Provider: 00:30 Patient was resting in his recliner following his OT session. Patient was trying to position himself back more in his chair and kicked his table, spilling his drink. Shital the OT came in and assisted him in changing his pants to dry ones. Objective Patient completed a series of safety awareness tasks related to his daily needs with frequent prompts at 75%. Assessment Assessment Current Status: Fair Progress Treatment Plan Continue Plan of Care Speech Short Term Goals Short Term Goals Short Term Goals 1) Patient will complete memory tasks related to his daily needs with 80% accuracy given minimal cues. 2) Patient will complete tasks safety awareness to his daily needs with 80% accuracy given minimal cues. 3) Patient will complete problem solving tasks related to his daily needs with 80% accuracy given minimal cues. 4) Patient will tolerate least restrictive diet level without s/s of aspiration at 80% with minimal cues. 5) Patient/caregiver will utilize compensatory strategies as trained at 90% with minimal cues. Speech Retirement Goals Retirement Goals Patient will improve cognitive-communication abilities in order to complete daily tasks with decreased assistance. Patient will maintain adequate nutrition/hydration via safe effective swallow function. Speech-Plan Patient/Family Goals Patient/Family Goals: Patient plans on returning to his home where he lives with his . Treatment Plan Speech Therapy Treatment Plan: Continue Plan of Care Treatment Duration: Apr 12, 2020 Frequency: 4 times per week (Patient will receive skilled ST 4-5x per week) Estimated Hrs Per Day: .5 hour per day Rehab Potential: Fair Barriers to Learning: Patient's right side neglect, recent CVA, prior fall with injury, Continued safety with oral intake Pt/Family Agrees to Plan: Yes Safety Risks/Education Teaching Recipient: Patient Teaching Methods: Demonstration, Discussion Response to Teaching: Verbalize Understanding, Return Demonstration Education Topics Provided: Continued safety within his room, using call light when needed Time Speech Therapy Time In: 10:30 Speech Therapy Time Out: 11:00 Total Billed Time: 30 Billed Treatment Time MARCIO Chapa [facility] No [place], [address] Apr 03, 2020 11:00
[2020-04-03] MEDS: CEPHALEXIN 250 MG (KEFLEX) CAP PO SCH ×4 (12:47→20:41)
--- NOTE | 2020-04-03 14:54 | NUR ---
CM/SS PATIENT CARE CONFERENCE Visited with patient and then with spouse Kimberly Pulliam by phone. Per team recommendation, Kimberly has agreed to come in 04/08/20 at 0900 to observe patient during therapy regarding his level of care needs. While patient was mostly wheelchair bound prior to this illness and hospitalization, the team needs confirmation that Kimberly can manage his current level of performance personally or provide adequate caregivers if she cannot. Kimberly does have her own business requiring 40-60 hours per week of her time. If she determines patient could not be provided for in the home, his appropriate level of care would be that of group home facility. Followup Wednesday and proceed based on results of explorations.
--- NOTE | 2020-04-03 15:01 | Physical Therapy Daily Note ---
PT Daily Note-Current Subjective Agrees to exercise and bed mobility Pain Location: No Pain Reported Mental Status Patient Orientation: Confused Transfers SCALE: Activities may be completed with or without assistive devices. 9-Dihdimvobc-idgrksx completes the activity by him/herself with no assistance from a helper. 5-Set-up or Clean-up Assistance-helper sets up or cleans up; patient completes activity. [place] assists only prior to or following the activity. 4-Supervision or Touching Assistance-helper provides verbal cues and/or touching/steadying and/or contact guard assistance as patient completes activi ty. Assistance may be provided throughout the activity or intermittently. 3-Partial/Moderate Assistance-helper does LESS THAN HALF the effort. [place] lifts, holds or supports trunk or limbs, but provides less than half the effort. 2-Substantial/Maximal Assistance-helper does MORE THAN HALF the effort. [place] lifts or holds trunk or limbs and provides more than half the effort. 5-Pmvhqchig-xraodi does ALL the effort. Patient does none of the effort to complete the activity. Or, the assistance of 2 or more helpers is required for the patient to complete the activity. If activity was not attempted, code reason: 7-Patient Refused. 9-Not Applicable-not attempted and the patient did not perform the activity before the current illness, exacerbation or injury. 10-Not Attempted due to Environmental Limitations-(lack of equipment, weather restraints, etc.). 88-Not Attempted due to Medical Conditions or Safety Concerns. rolls left and right indep, pushes self up in bed indep all with instruction Exercises Supine Ex: Bridging, Rolling, Heel Slides, Straight leg raise, Hip abd/add Supine Reps: 10 Assessment needs much explanation and cuing PT Short Term Goals Short Term Goals Time Frame: Apr 11, 2020 Roll Left & Right: 5 Sit to lyin Lying to sitting on side of be: 5 Sit to stand: 4 Chair/uxt-fn-phqvl transfer: 4 Walk 10 feet: 4 Walk 50 feet with two turns: 3 PT Clinical Care Leader Goals Retirement Goals PT Retirement Goals Time Frame: Apr 25, 2020 Roll Left & Right (QC): 6 Sit to Lying (QC): 6 Lying-Sitting on Side/Bed(QC): 6 Sit to Stand (QC): 6 Chair/Psq-uw-Ipvmm Xfer(QC): 6 Toilet Transfer (QC): 6 Car Transfer (QC): 4 Does the Patient Walk: Yes Walk 10 feet (QC): 4 Walk 50ft with 2 Turns (QC): 4 Walk 150 ft (QC): 9 Walking 10ft on Uneven Surface: 3 1 Step (curb) (QC): 3 4 Steps (QC): 9 12 Steps (QC): 9 Picking up an Object (QC): 9 Does the Pt use WC or Scooter?: Yes Wheel 50 feet with 2 turns (QC: 6 Type: Manual Wheel 150 feet: 6 Type: Manual PT Plan Treatment/Plan Treatment Plan: Continue Plan of Care Treatment Plan: Bed Mobility, Education, Functional Activity Kera, Functional Strength, Group Therapy, Gait, Safety, Therapeutic Exercise, Transfers Treatment Duration: Apr 25, 2020 Frequency: At least 5 of 7 days/Wk (IRF) Estimated Hrs Per Day: 1.5 hours per day Patient and/or Family Agrees t: Yes Safety Risks/Education Patient Education: Correct Positioning Time/GCodes Time In: 1415 Time Out: 1430 Total Billed Treatment Time: 15 Total Billed Treatment 1,FA15m JULIANN WITT [employer] Apr 03, 2020 15:01
--- NOTE | 2020-04-03 15:52 | Cardiology Progress Note ---
Subjective Date Seen by Provider: Apr 03, 2020 Time Seen by Provider: 15:51 Subjective/Events-last exam Patient was seen at bedside laying down comfortably, denied any active pain Review of Systems General: No Chills, No Night Sweats, No Fatigue, No Malaise, No Appetite, No Other HEENT: No Head Aches, No Visual Changes, No Eye Pain, No Ear Pain, No Dysphasia, No Sinus Congestion, No Post Nasal Drip, No Sore Throat, No Other Pulmonary: No Dyspnea, No Cough, No Pleuritic Chest Pain, No Other Cardiovascular: No: Chest Pain, Palpitations, Orthopnea, Paroxysmal Noc. Dyspnea, Edema, Lt Headedness, Other Objective-Cardiology Exam Last Set of Vital Signs Vital Signs 04/03/20 04/03/20 06:02 09:00 Temp 37.5 Pulse 76 Resp 20 B/P (MAP) 102/57 (72) Pulse Ox 94 O2 Delivery Room Air Capillary Refill : I&O Intake and Output 04/03/20 00:00 Intake Total 900 ml Output Total 125 ml Balance 775 ml Intake Oral 900 ml Output Urine Total 125 ml # Voids 5 # Bowel Movements 2 General: Alert, Oriented X3, Cooperative HEENT: Atraumatic Neck: Supple, No JVD, No Thyromegaly Lungs: Clear to Auscultation, Normal Air Movement Heart: Regular Rate, Normal S1, Normal S2, No Murmurs Abdomen: Normal Bowel Sounds, Soft, No Tenderness, No Hepatosplenomegaly, No Masses Extremities: No Clubbing, No Cyanosis, No Edema, Normal Pulses, No Tenderness/Swelling Skin: No Rashes, No Breakdown, No Significant Lesion Neuro: Normal Speech Psych/Mental Status: Mental Status NL, Mood NL A/P-Cardiology Admission Diagnosis CVA Carotid artery stenosis Paroxysmal atrial flutter HTN Assessment/Plan CVA, Neurologic deficits consisting of confusion, dyphasia, and R-sided vision loss: CVA (acute infarction involving most of the left posterior cerebral artery distribution) vs mass effect (hypodensities along the temporal lobe more in the white matter, worrisome for an underlying mass per CT and MRI of the head on 03-25-20 and 03-26-20, respectively) Carotid artery stenosis, CTA of 03-26-20: 70% stenosis of the right internal car otid artery. There is a 70 to 80% stenosis of the left internal carotid artery. 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 The left vertebral artery has approximately 70% stenosis at its origin and is fairly prominent vessel throughout the remainder of its course. Per Dr. Sanders's recommendations, continue on Plavix and f/u in 6 weeks as outpatient. Brief atrial flutter with 2:1 AV conduction on 03/30/20 (lasting only a few seconds), started on Eliquis. Continue to monitor. Echo of 03/26/20: LVEF 60-65%, grade 1 diastolic dysfunction, mild to mod enlargement of LA, PASP 25 - 30 mmHg Hypertension, currently borderline hypotensive, I'll decrease amlodipine to 5 mg daily and monitor tolerance and response HLD - started on Lipitor. BERNICE MONTERO MD Apr 03, 2020 15:52
[2020-04-03 17:21] VITALS: BP 108/62
--- NOTE | 2020-04-03 18:15 | NUR ---
unable to obtain new order of solu medrol from [employer], & is not in the tube as of now.
[2020-04-03] MEDS ORDERED: methylPREDNISolone 40 MG/ML (Solu-MEDROL) VIAL IM NR (18:30)
[2020-04-04 06:08] VITALS: BP 121/56
[2020-04-04] MEDS: CEPHALEXIN 250 MG (KEFLEX) CAP PO SCH ×4 (08:03→22:33)
[2020-04-04] MEDS: APIXABAN 5 MG (ELIQUIS) TABLET PO SCH ×2 (08:03→22:34)
[2020-04-04] MEDS: amLODIPine 5 MG (NORVASC) TAB PO SCH (08:03)
[2020-04-04] MEDS: SALINE NASAL SPRAY (OCEAN) 45 ML BTL SCH ×4 (08:03→22:32)
[2020-04-04] MEDS: CLOPIDOGREL 75 MG (PLAVIX) TABLET PO SCH (08:03)
[2020-04-04] MEDS: CARVEDILOL 12.5 MG (COREG) TABLET PO SCH ×2 (08:03→22:33)
[2020-04-04] MEDS: MICONAZOLE 2% POWDER (DESENEX AF) 90 GM TOP SCH ×2 (08:04→22:41)
[2020-04-04] MEDS: ACETAMINOPHEN 325 MG TABLET PO PRN (08:04)
[2020-04-04] MEDS: FLUTICASONE NASAL SPRAY (FLONASE) 16 GM BTL NS SCH (08:04)
[2020-04-04] MEDS: DOCUSATE SODIUM 100 MG (COLACE) CAP PO SCH ×2 (08:04→22:30)
[2020-04-04] MEDS: ZINC OXIDE 16% OINT (BUTT PASTE) 57 GM TUBE TOP SCH ×2 (08:05→22:34)
[2020-04-04] MEDS: SENNA W/DOCUSATE (SENOKOT S) TABLET PO SCH ×2 (08:05→22:33)
[2020-04-04] MEDS: polyethylene glycoL POWDER 17 GM (MIRALAX) PACK PO SCH ×2 (08:06→22:30)
[2020-04-04] MEDS ORDERED: amLODIPine 10 MG (NORVASC) TAB PO SCH (09:00)
--- NOTE | 2020-04-04 09:37 | Cardiology Progress Note ---
Subjective Date Seen by Provider: Apr 04, 2020 Time Seen by Provider: 09:36 Subjective/Events-last exam patient was seen and evaluated, no change from baseline Review of Systems General: No Chills, No Night Sweats, No Fatigue, No Malaise, No Appetite, No Other HEENT: No Head Aches, No Visual Changes, No Eye Pain, No Ear Pain, No Dysphasia, No Sinus Congestion, No Post Nasal Drip, No Sore Throat, No Other Pulmonary: No Dyspnea, No Cough, No Pleuritic Chest Pain, No Other Cardiovascular: No: Chest Pain, Palpitations, Orthopnea, Paroxysmal Noc. Dyspnea, Edema, Lt Headedness, Other Objective-Cardiology Exam Last Set of Vital Signs Vital Signs 04/04/20 04/04/20 06:08 09:09 Temp 36.4 Pulse 64 Resp 18 B/P (MAP) 121/56 (77) Pulse Ox 95 O2 Delivery Room Air Capillary Refill : I&O Intake and Output 04/04/20 00:00 Intake Total 1050 ml Balance 1050 ml Intake Oral 1050 ml # Voids 3 # Urine Diapers 3 General: Alert, Oriented X3, Cooperative HEENT: Atraumatic Neck: Supple, No JVD, No Thyromegaly Lungs: Clear to Auscultation, Normal Air Movement Heart: Regular Rate, Normal S1, Normal S2, No Murmurs Abdomen: Normal Bowel Sounds, Soft, No Tenderness, No Hepatosplenomegaly, No Masses Extremities: No Clubbing, No Cyanosis, No Edema, Normal Pulses, No Tenderness/Swelling Skin: No Rashes, No Breakdown, No Significant Lesion Neuro: Normal Speech Psych/Mental Status: Mental Status NL, Mood NL A/P-Cardiology Admission Diagnosis CVA Carotid artery stenosis Paroxysmal atrial flutter HTN Assessment/Plan CVA, Neurologic deficits consisting of confusion, dyphasia, and R-sided vision loss: CVA (acute infarction involving most of the left posterior cerebral artery distribution) vs mass effect (hypodensities along the temporal lobe more in the white matter, worrisome for an underlying mass per CT and MRI of the head on 03-25-20 and 03-26-20, respectively) Carotid artery stenosis, CTA of 03-26-20: 70% stenosis of the right internal carotid artery. There is a 70 to 80% stenosis of the left internal carotid artery. 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 The left vertebral artery has approximately 70% stenosis at its origin and is fairly prominent vessel throughout the remainder of its course. Per Dr. Sanders's recommendations, continue on Plavix and f/u in 6 weeks as outpatient. Brief atrial flutter with 2:1 AV conduction on 03/30/20 (lasting only a few seconds), started on Eliquis. Continue to monitor. Echo of 03/26/20: LVEF 60-65%, grade 1 diastolic dysfunction, mild to mod enlargement of LA, PASP 25 - 30 mmHg Hypertension, currently borderline hypotensive, I'll decrease amlodipine to 5 mg daily and monitor tolerance and response HLD - started on Lipitor. BERNICE MONTERO MD Apr 04, 2020 09:37
--- NOTE | 2020-04-04 09:57 | Occupational Ther Daily Note ---
OT Current Status-Daily Note Subjective Before tx, pt stated to nursing that he wanted to get dressed, so OT was notified. Upon entering room for tx, pt stated that he did not want to get up and participate in therapy. OT reassured the benefits of therapy and getting dressed, and pt agreed to tx. Mental Status/Objective Patient Orientation: Confused ADL-Treatment Therapy Code Descriptions/Definitions Functional [place] Measure: 0=Not Assessed/NA 4=Minimal Assistance 1=Total Assistance 5=Supervision or Setup 2=Maximal Assistance 6=Modified [place] 3=Moderate Assistance 7=Complete IndependenceSCALE: Activities may be completed with or without assistive devices. 1-Knyyzfwihn-bfxgwjx completes the activity by him/herself with no assistance from a helper. 5-Set-up or Clean-up Assistance-helper sets up or cleans up; patient completes activity. [place] assists only prior to or following the activity. 4-Supervision or Touching Assistance-helper provides verbal cues and/or touching/steadying and/or contact guard assistance as patient completes activity. Assistance may be provided throughout the activity or intermittently. 3-Partial/Moderate Assistance-helper does LESS THAN HALF the effort. [place] lifts, holds or supports trunk or limbs, but provides less than half the effort. 2-Substantial/Maximal Assistance-helper does MORE THAN HALF the effort. [place] lifts or holds trunk or limbs and provides more than half the effort. 9-Vsncylkta-yibaex does ALL the effort. Patient does none of the effort to complete the activity. Or, the assistance of 2 or more helpers is required for the patient to complete the activity. If activity was not attempted, code reason: 7-Patient Refused. 9-Not Applicable-not attempted and the patient did not perform the activity before the current illness, exacerbation or injury. 10-Not Attempted due to Environmental Limitations-(lack of equipment, weather restraints, etc.). 88-Not Attempted due to Medical Conditions or Safety Concerns. Upper Body Dressing (QC): 3 (Trudi, pt was able to thread shirt on and adjust down trunk. Assistance needed to show shirt was inside out.) Lower Body Dressing (QC): 1 (Pt able to thread legs through pants with minimal assistance to adjust around feet. Assistance x2 to perform pants hike while standing) On/Off Footwear: 2 (ModA, due to bandadge on R foot, assistance to thread sock on R foot. Pt able to thread and pull up sock on L foot) Other Treatment OT tx ([id number]) Pt began tx in recliner. Pt declined getting dressed and stated that he was tired. OT reassured pt about benefits of therapy and the need to go home with [facility] that [facility]. Pt agreed to get dressed and up out of recliner. Pt donned shirt with set up assistance but than OT realized it was inside out so OT instructed pt to doff and feliberto shirt again, min A overall. pt stated that he did not want to do it, but OT educated that he does need too and pt agreed. Pt donned brief and pants with minimal assistance to thread feet through but overall assistance x2 for standing and performing pants hike. Pt transferred to [facility] with FWW OT/PT cotreat ([id number]). OT/PT cotreat due to skill of 2 clinicians required which a rehab director occupational therapist could not perform in order to coordinate UE/LEs, and due to pt's limitations in mobility, transfers, activity tolerance, strength and R neglect. OT focused on UE placement, cues for sequencing and safety, and assist with mobility, PT focused on LE placement, gross overall movements, ambulation/transfers. Pt propelled self in [facility] to commons area then instructed to stand and walk down the hallway. Pt ambulated the hallway x3 with FWW with w/c follow behind. In therapy room, pt transferred from [facility] to therapy mat and participated in cone activity to increase activity tolerance and encourage visua l scanning on R side. pt proceeded through 10 cones 2x through with a break in between, reaching towards R visual field to locate cone, and then placing cone in various planes in R field. Pt needed minimal cues to begin task. Pt participated in standing table top activity with peg board with 25 pegs to increase activity tolerance, standing balance, and scanning to R visual field. P t needed no cues to remove pegs from pegboard with activity. After a rest break, pt stood again to participate in ring arch activity to increase standing balance, functional reaching, and to encourage visual scanning on R side. Pt was instructed to follow ring from one side to the other with eyes and pt proceed through 6 ring with L hand and needed a break. After break, pt switched to using R hand and proceed through 6 rings. pt transferred from mat to w/c with FWW and returned to pt's room. Pt transferred from w/c to recliner with SPT. Pt was educated cushion gum applicator light and what it does. Pt's call button adapted so pt had tactile assistance due to pt having difficulty locating button by sight. Pt pressed new built up call light and was educated when to use the call light. Post tx, pt in recliner with chair alarm on and call light on L side with all need met. Education OT Patient Education: Energy conservation, Modified ADL techniques, Progress toward Goal/Update tx plan, Purpose of tx/functional activities, Reviewed precautions, Safety issues, Transfer techniques, W/C management Teaching Recipient: Patient Teaching Methods: Demonstration, Discussion Response to Teaching: Unable to Comprehend, Reinforcement Needed OT Short Term Goals Short Term Goals Time Frame: Apr 19, 2020 Oral hygiene: 5 Toileting hygiene: 3 Shower/bathe self: 3 Upper body dressin Lower body dressin OT Group Home Goals Group Home Goals Time Frame: Apr 26, 2020 Eating (QC): 6 Oral Hygiene (QC): 6 Toileting Hygiene (QC): 6 Shower/Bathe Self (QC): 4 Upper Body Dressing (QC): 5 Lower Body Dressing (QC): 5 On/Off Footwear (QC): 5 Additional Goals: 1-Demonstrate ADL Tasks, 2-Verbalize Understanding, 3-Imp roveStrength/Kera 1=Demonstrate adherence to instructed precautions during ADL tasks. 2=Patient will verbalize/demonstrate understanding of assistive devices/modifications for ADL. 3=Patient will improve strength/tolerance for activity to enable patient to perform ADL's. OT Education/Plan Problem List/Assessment Assessment: Decreased Activ Tolerance, Decreased UE Strength, Impaired Funct Balance, Impaired I ADL's, Impaired Self-Care Skills, Visual-Perceptual Deficit Discharge Recommendations Plan/Recommendations: Continue POC Treatment Plan/Plan of Care Patient would benefit from OT for education, treatment and training to promote independence in ADL's, mobility, safety and/or upper extremity function for ADL's. Plan of Care: ADL Retraining, Functional Mobility, Group Exercise/Act as Ind, UE Funct Exercise/Act, UE Neuromus Re-Ed/Coord, Visual/Perceptual Retrain, W/C Management Training Treatment Duration: Apr 26, 2020 Frequency: At least 5 of 7 days/Wk (IRF) Estimated Hrs Per Day: 1.5 hours per day Agreement: Yes Rehab Potential: Fair Time/GCodes Start Time: 08:45 Stop Time: 10:00 Total Time Billed (hr/min): 75 Billed Treatment Time OT tx [id number] PT/OT cotreat [id number] 1, ADL (15), FA 4 (60) LUCILLE PACE OT Apr 04, 2020 09:57
--- NOTE | 2020-04-04 09:58 | Physical Therapy Daily Note ---
PT Daily Note-Current Subjective Patient in WC pre tx, agrees to PT, has no complaints of pain. Will be co- treating with OT due to poor patient mobility, strength, endurance, the need to coordinate UE and LE during activity, safety and reduce risk of falls. Appearance Patient in recliner post tx with nurse call, phone, tray, chair alarm on, legs elevated. Mental Status Patient Orientation: Person, Confused Transfers SCALE: Activities may be completed with or without assistive devices. 8-Vbiwadcjwg-xtaasmo completes the activity by him/herself with no assistance from a helper. 5-Set-up or Clean-up Assistance-helper sets up or cleans up; patient completes activity. [place] assists only prior to or following the activity. 4-Supervision or Touching Assistance-helper provides verbal cues and/or touching/steadying and/or contact guard assistance as patient completes activity. Assistance may be provided throughout the activity or intermittently. 3-Partial/Moderate Assistance-helper does LESS THAN HALF the effort. [place] lifts, holds or supports trunk or limbs, but provides less than half the effort. 2-Substantial/Maximal Assistance-helper does MORE THAN HALF the effort. [place] lifts or holds trunk or limbs and provides more than half the effort. 7-Iifdylehz-nktagk does ALL the effort. Patient does none of the effort to complete the activity. Or, the assistance of 2 or more helpers is required for the patient to complete the activity. If activity was not attempted, code reason: 7-Patient Refused. 9-Not Applicable-not attempted and the patient did not perform the activity before the current illness, exacerbation or injury. 10-Not Attempted due to Environmental Limitations-(lack of equipment, weather restraints, etc.). 88-Not Attempted due to Medical Conditions or Safety Concerns. Sit to Stand (QC): 4 Chair/Mvw-vs-Uhxzz Xfer(QC): 4 CGA, patient does often need cues for hand placement and proper positioning during transfers and standing. Gait Training Distance: 100', 50', 80' Walk 10 feet (QC): 3 Walk 50 ft with 2 Turns(QC): 3 Gait Assistive Device: FWW WC follow, needs help guiding walker Wheelchair Training Does the Pt Use a Wheelchair?: Yes Wheel 50 ft with 2 turns (QC): 3 Type of Wheelchair: Manual needs assist with turning and guiding WC due to his impaired vision Neuromuscular standing balance activity while does OT activity with reaching for cones and rings Treatments PT performed transfers, ambulation, WC mobility, standing activity, OT performed UE reaching activity, assist with UE positioning and safety during activity Assessment Current Status: Fair Progress improving ambulation PT Short Term Goals Short Term Goals Time Frame: Apr 11, 2020 Roll Left & Right: 5 Sit to lyin Lying to sitting on side of be: 5 Sit to stand: 4 Chair/hyx-bp-diugq transfer: 4 Walk 10 feet: 4 Walk 50 feet with two turns: 3 PT Senior Care Goals Radiator Core Tester Goals PT Radiator Core Tester Goals Time Frame: Apr 25, 2020 Roll Left & Right (QC): 6 Sit to Lying (QC): 6 Lying-Sitting on Side/Bed(QC): 6 Sit to Stand (QC): 6 Chair/Qyj-ld-Jvcsy Xfer(QC): 6 Toilet Transfer (QC): 6 Car Transfer (QC): 4 Does the Patient Walk: Yes Walk 10 feet (QC): 4 Walk 50ft with 2 Turns (QC): 4 Walk 150 ft (QC): 9 Walking 10ft on Uneven Surface: 3 1 Step (curb) (QC): 3 4 Steps (QC): 9 12 Steps (QC): 9 Picking up an Object (QC): 9 Does the Pt use WC or Scooter?: Yes Wheel 50 feet with 2 turns (QC: 6 Type: Manual Wheel 150 feet: 6 Type: Manual PT Plan Problem List Problem List: Activity Tolerance, Functional Strength, Safety, Balance, Gait, Transfer, Bed Mobility, ROM Treatment/Plan Treatment Plan: Continue Plan of Care Treatment Plan: Bed Mobility, Education, Functional Activity Kera, Functional Strength, Group Therapy, Gait, Safety, Therapeutic Exercise, Transfers Treatment Duration: Apr 25, 2020 Frequency: At least 5 of 7 days/Wk (IRF) Estimated Hrs Per Day: 1.5 hours per day Patient and/or Family Agrees t: Yes Safety Risks/Education Patient Education: Gait Training, Transfer Techniques, Correct Positioning, W/C Management, Safety Issues Teaching Recipient: Patient Teaching Methods: Demonstration, Discussion Response to Teaching: Reinforcement Needed Time/GCodes Time In: 0900 Time Out: 1000 Total Billed Treatment Time: 60 Total Billed Treatment 1 visit FA Norm' IVÁN DUKE PT Apr 04, 2020 09:58
--- NOTE | 2020-04-04 11:18 | Physical Therapy Daily Note ---
PT Daily Note-Current Subjective Patient in recliner pre tx, agrees to PT, has no pain at rest. Appearance Patient in recliner post tx with nurse call, phone, tray, all needs met. Chair alarm on. Mental Status Patient Orientation: Person, Confused Transfers SCALE: Activities may be completed with or without assistive devices. 0-Gvhbkqawfh-thixyxv completes the activity by him/herself with no assistance from a helper. 5-Set-up or Clean-up Assistance-helper sets up or cleans up; patient completes activity. [place] assists only prior to or following the activity. 4-Supervision or Touching Assistance-helper provides verbal cues and/or touching/steadying and/or contact guard assistance as patient completes activity. Assistance may be provided throughout the activity or intermittently. 3-Partial/Moderate Assistance-helper does LESS THAN HALF the effort. [place] lifts, holds or supports trunk or limbs, but provides less than half the effort. 2-Substantial/Maximal Assistance-helper does MORE THAN HALF the effort. [place] lifts or holds trunk or limbs and provides more than half the effort. 3-Elbnifjvp-xewqoa does ALL the effort. Patient does none of the effort to complete the activity. Or, the assistance of 2 or more helpers is required for the patient to complete the activity. If activity was not attempted, code reason: 7-Patient Refused. 9-Not Applicable-not attempted and the patient did not perform the activity before the current illness, exacerbation or injury. 10-Not Attempted due to Environmental Limitations-(lack of equipment, weather restraints, etc.). 88-Not Attempted due to Medical Conditions or Safety Concerns. Exercises Supine Ex: Ankle pumps, Heel Slides, Short Arc Quads, Straight leg raise, Hip abd/add Supine Reps: 20 (done in recliner with legs elevated) Seated Therapy Exercises: Ankle pumps, Long arc quads, Hip flexion Seated Reps: 20 Treatments LE exercise Assessment Current Status: Fair Progress better job following directions PT Short Term Goals Short Term Goals Time Frame: Apr 11, 2020 Roll Left & Right: 5 Sit to lyin Lying to sitting on side of be: 5 Sit to stand: 4 Chair/bcz-ww-bskjj transfer: 4 Walk 10 feet: 4 Walk 50 feet with two turns: 3 PT Hydrogen Treater Goals Custodial Goals PT Custodial Goals Time Frame: Apr 25, 2020 Roll Left & Right (QC): 6 Sit to Lying (QC): 6 Lying-Sitting on Side/Bed(QC): 6 Sit to Stand (QC): 6 Chair/Hxp-pu-Evsce Xfer(QC): 6 Toilet Transfer (QC): 6 Car Transfer (QC): 4 Does the Patient Walk: Yes Walk 10 feet (QC): 4 Walk 50ft with 2 Turns (QC): 4 Walk 150 ft (QC): 9 Walking 10ft on Uneven Surface: 3 1 Step (curb) (QC): 3 4 Steps (QC): 9 12 Steps (QC): 9 Picking up an Object (QC): 9 Does the Pt use WC or Scooter?: Yes Wheel 50 feet with 2 turns (QC: 6 Type: Manual Wheel 150 feet: 6 Type: Manual PT Plan Problem List Problem List: Activity Tolerance, Functional Strength, Safety, Balance, Gait, Transfer, Bed Mobility, ROM Treatment/Plan Treatment Plan: Continue Plan of Care Treatment Plan: Bed Mobility, Education, Functional Activity Kera, Functional Strength, Group Therapy, Gait, Safety, Therapeutic Exercise, Transfers Treatment Duration: Apr 25, 2020 Frequency: At least 5 of 7 days/Wk (IRF) Estimated Hrs Per Day: 1.5 hours per day Patient and/or Family Agrees t: Yes Safety Risks/Education Patient Education: Correct Positioning, Safety Issues Teaching Recipient: Patient Teaching Methods: Demonstration, Discussion Response to Teaching: Reinforcement Needed Time/GCodes Time In: 1100 Time Out: 1115 Total Billed Treatment Time: 15 Total Billed Treatment 1 visit EX IVÁN NICK PT Apr 04, 2020 11:18
--- NOTE | 2020-04-04 12:03 | PM&R Progress Note ---
Subjective HPI/CC On Admission Date Seen by Provider: Apr 04, 2020 Time Seen by Provider: 12:30 Subjective/Events-last exam 04/04/20: No change in the left foot pain but it does appear to be less erythema Keflex maintained and S/P steroid injection yesterday 04/03/20: Left foot continues to be an issue Slightly red so I did start him on Keflex 500 QID I did speak with Dr. Goodwin who recommended one dose of steroid to see if we can decrease the inflammation for any type of gout problem No other issues reported 04/02/20: Uric acid was elevated at 8.[address] Goodwin who ordered the test Toenail care provided Plavix and oral anticoagulants tolerated well Walked in to see him and he had taken his pants correction down his legs Depends diaper intact 04/01/20: Pt really cant walk very well today Dr. Goodwin will be in for toenail care Reports foot pain but it varies whether he reports it hurts or it doesnt Incontinence now Very confused Eliquis started along with his Plavix 03/31/20: More confused today Dr Barajas evaluated a run of atrial flutter of 160 last night for a brief moment so added Eliquis and maintained on Plavix for carotid stenosis Difficulty transferring Podiatry consult tomorrow 03/30/20: Up in chair today Incontinent now Dysphagia 2 diet tolerated Did not eat lunch Sleepy Vision changes are profound 03/29/20: Patient seems to be progressing very well Able to walk farther today Seems more alert and less confused today Outperforming with therapy today No pain reported ST working with him for swallowing and cognition Checked meds and labs Review of Systems General: Fatigue, Malaise Neurological: Weakness Objective Exam Vital Signs Vital Signs Date Time Temp Pulse Resp B/P (MAP) Pulse Ox O2 Delivery O2 Flow Rate FiO2 04/04/20 20:30 92 Room Air 04/04/20 18:01 36.6 75 18 117/55 (75) Capillary Refill : General Appearance: No Apparent Distress, WD/WN, Chronically ill HEENT: PERRL/EOMI, TMs Normal, Normal ENT Inspection, Pharynx Normal Neck: Full Range of Motion, Normal Inspection, Non Tender, Supple, Carotid Bruit Respiratory: Chest Non Tender, Lungs Clear, Normal Breath Sounds, No Accessory Muscle Use, No Respiratory Distress Cardiovascular: Regular Rate, Rhythm, No Edema, No Gallop, No JVD, No Murmur, Normal Peripheral Pulses Gastrointestinal: Normal Bowel Sounds, No Organomegaly, No Pulsatile Mass, Non Tender, Soft Back: Normal Inspection, No CVA Tenderness, No Vertebral Tenderness Extremity: Normal Capillary Refill, Normal Inspection, Normal Range of Motion, Non Tender, No Calf Tenderness, No Pedal Edema Neurologic/Psychiatric: Alert, Normal Mood/Affect, 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 FIM Transfers Therapy Code Descriptions/Definitions Functional [place] Measure: 0=Not Assessed/NA 4=Minimal Assistance 1=Total Assistance 5=Supervision or Setup 2=Maximal Assistance 6=Modified [place] 3=Moderate Assistance 7=Complete IndependenceSCALE: Activities may be completed with or without assistive devices. 0-Dwdohlxzpr-yybctdh completes the activity by him/herself with no assistance from a helper. 5-Set-up or Clean-up Assistance-helper sets up or cleans up; patient completes activity. [place] assists only prior to or following the activity. 4-Supervision or Touching Assistance-helper provides verbal cues and/or touching/steadying and/or contact guard assistance as patient completes activity. Assistance may be provided throughout the activity or intermittently. 3-Partial/Moderate Assistance-helper does LESS THAN HALF the effort. [place] lifts, holds or supports trunk or limbs, but provides less than half the effort. 2-Substantial/Maximal Assistance-helper does MORE THAN HALF the effort. [place] lifts or holds trunk or limbs and provides more than half the effort. 2-Moxxxdwkf-yuewle does ALL the effort. Patient does none of the effort to complete the activity. Or, the assistance of 2 or more helpers is required for the patient to complete the activity. If activity was not attempted, code reason: 7-Patient Refused. 9-Not Applicable-not attempted and the patient did not perform the activity before the current illness, exacerbation or injury. 10-Not Attempted due to Environmental Limitations-(lack of equipment, weather restraints, etc.). 88-Not Attempted due to Medical Conditions or Safety Concerns. Roll Left to Right (QC): 3 Sit to Lying (QC): 5 Sit to Stand (QC): 4 Chair/Bha-bx-Zfphs Xfer(QC): 4 Car Transfer (QC): 3 (verbal and tactile cues required. ) Gait Training Distance: 100', 50', 80' Walk 10 feet (QC): 3 Walk 50 ft with 2 Turns(QC): 3 Walk 150 ft (QC): 88 Walking 10ft/uneven surface-QC: 3 Gait Persons Needed: 2 Gait Assistive Device: FWW Wheelchair Training Does the Pt Use a Wheelchair?: Yes Wheel 50 ft with 2 turns (QC): 3 Wheel 150 ft (QC): 3 (min assist to achieve this distance;) Type of Wheelchair: Manual Stair Training 1 Step (curb) (QC): 88 (approached step but pt unable to safely attempt.) 4 Steps (QC): 88 12 Steps (QC): 88 Balance Picking up an Object (QC): 88 ADL-Treatment Eating (QC): 5 (Based on clincial judgement, pt would require set up assistance with task.) Oral Hygiene (QC): 2 (MaxA, assistance needed to put toothpaste on brush. pt able to put brush in mouth, but assistance needed to throughouly brush teeth as pt performed biting movements) Shower/Bathe Self (QC): 1 (Pt able to wash UB and feet. Assistance x2 needed to wash buttocks and upper legs) Upper Body Dressing (QC): 3 (Trudi, pt was able to thread shirt on and adjust down trunk. Assistance needed to show shirt was inside out.) Lower Body Dressing (QC): 1 (Pt able to thread legs through pants with minimal assistance to adjust around feet. Assistance x2 to perform pants hike while standing) On/Off Footwear (QC): 2 (ModA, due to bandadge on R foot, assistance to thread sock on R foot. Pt able to thread and pull up sock on L foot) Toileting Hygiene (QC): 1 Toilet Transfer (QC): 1 Assessment/Plan Assessment and Plan Assess & Plan/Chief Complaint Assessment: s/p acute ischemic stroke Bilateral carotid stenosis has f/u [address] Sanders CTA revealed bilateral carotid stenosis >70%, chronically occluded right vertebral artery, left vertebral artery stenosis >70% Vertebral artery stenosis/occlusion Impaired vision in both eyes Dementia 12/30 SLUMS HTN HLD DVT prophylaxis: Lovenox Chronic debility and non-ambulatory for 2 years per Atrial flutter noted on Tely 03/30/20 at 160 HR briefly so starte don OAC 03/31/20 Left foot pain cellulitis vs. gout? Keflex and Solumedrol initiated 04/03/20 Plan: IRF protocol Wheelchair bound at home Statin Monitor closely 03/29/20: Able to ambulate a lot more today Feels good about progress ST to help with swallowing 03/30/20: Advanced diet Incontinence care Vision issues 03/31/20: Added OAC to Plavix for atrial flutter run on Tely last night and reviewed by Dr Barajas Confusion monitoring 04/01/20: Podiatry appreciated Monitor BP OAC and Plavix required 04/02/20: Monitor confusion Continue aggressive therapy OAC and Plavix 04/03/20: Left foot gout versus cellulitis 04/03/20 Monitor closely 1 dose of steroids should not place him at risk for bleeding 04/04/20: Monitor left foot Monitor BP (1) 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 Status: Acute (2) Carotid stenosis, bilateral Status: Acute (3) Right homonymous hemianopsia due to recent cerebral infarction Status: Acute (4) Vertebral artery stenosis/occlusion Status: Acute (5) Impaired vision in both eyes Status: Acute (6) HLD (hyperlipidemia) Status: Acute (7) HTN (hypertension) Status: Acute AYALA PARKS DO Apr 04, 2020 12:03
--- NOTE | 2020-04-04 13:21 | Speech Therapy Daily Note ---
Speech Daily Progress Note Subjective Date Seen by Provider: Apr 04, 2020 Time Seen by Provider: 00:30 Patient was sitting up in his recliner watching television when I entered his room. He was alert and participated in therapy. Objective Patient completed a series of questions related to his needs upon his return home with 80% given moderate cuing. Assessment Assessment Current Status: Fair Progress Treatment Plan Continue Plan of Care Speech Short Term Goals Short Term Goals Short Term Goals 1) Patient will complete memory tasks related to his daily needs with 80% accur acy given minimal cues. 2) Patient will complete tasks safety awareness to his daily needs with 80% accuracy given minimal cues. 3) Patient will complete problem solving tasks related to his daily needs with 80% accuracy given minimal cues. 4) Patient will tolerate least restrictive diet level without s/s of aspiration at 80% with minimal cues. 5) Patient/caregiver will utilize compensatory strategies as trained at 90% with minimal cues. Speech Motor And Generator Brush Maker Goals Senior Care Goals Patient will improve cognitive-communication abilities in order to complete daily tasks with decreased assistance. Patient will maintain adequate nutrition/hydration via safe effective swallow function. Speech-Plan Patient/Family Goals Patient/Family Goals: Patient plans on returning to his home upon discharge. Treatment Plan Speech Therapy Treatment Plan: Continue Plan of Care Treatment Duration: Apr 12, 2020 Frequency: 4 times per week (Patient will receive skilled ST 4-5x per week) Estimated Hrs Per Day: .5 hour per day Rehab Potential: Fair Barriers to Learning: Patient's recent CVA, previous fall with injury, right side neglect Pt/Family Agrees to Plan: Yes Safety Risks/Education Teaching Recipient: Patient Teaching Methods: Demonstration, Discussion Response to Teaching: Verbalize Understanding, Return Demonstration Education Topics Provided: Continued safety within his room, use of control as needed, Continued safety with oral intake Time Speech Therapy Time In: 10:30 Speech Therapy Time Out: 11:00 Total Billed Time: 30 Billed Treatment Time 1MARCIO SLTS No WH[place]ON, BETHANIA ST Apr 04, 2020 13:21
[2020-04-04 18:01] VITALS: BP 117/55
[2020-04-05 06:00] VITALS: BP 111/61
[2020-04-05 08:42] VITALS: BP 120/65
[2020-04-05] MEDS: MICONAZOLE 2% POWDER (DESENEX AF) 90 GM TOP SCH ×2 (08:42→20:10)
[2020-04-05] MEDS: SALINE NASAL SPRAY (OCEAN) 45 ML BTL SCH ×4 (08:42→20:09)
[2020-04-05] MEDS: FLUTICASONE NASAL SPRAY (FLONASE) 16 GM BTL NS SCH (08:42)
[2020-04-05] MEDS: CLOPIDOGREL 75 MG (PLAVIX) TABLET PO SCH (08:43)
[2020-04-05] MEDS: CARVEDILOL 12.5 MG (COREG) TABLET PO SCH ×2 (08:43→20:08)
[2020-04-05] MEDS: ZINC OXIDE 16% OINT (BUTT PASTE) 57 GM TUBE TOP SCH ×2 (08:43→20:10)
[2020-04-05] MEDS: APIXABAN 5 MG (ELIQUIS) TABLET PO SCH ×2 (08:43→20:08)
[2020-04-05] MEDS: CEPHALEXIN 250 MG (KEFLEX) CAP PO SCH ×4 (08:43→20:08)
[2020-04-05] MEDS: SENNA W/DOCUSATE (SENOKOT S) TABLET PO SCH ×2 (08:43→20:22)
[2020-04-05] MEDS: amLODIPine 5 MG (NORVASC) TAB PO SCH (08:43)
[2020-04-05] MEDS: DOCUSATE SODIUM 100 MG (COLACE) CAP PO SCH ×2 (08:43→20:22)
[2020-04-05] MEDS: polyethylene glycoL POWDER 17 GM (MIRALAX) PACK PO SCH ×2 (08:50→20:21)
[2020-04-05] MEDS: ACETAMINOPHEN 325 MG TABLET PO PRN ×2 (09:40→23:08)
--- NOTE | 2020-04-05 10:13 | Physical Therapy Daily Note ---
PT Daily Note-Current Subjective Patient in chair pre tx, agrees to PT, has no complaints of pain but during tx he says he has 8/10 low back pain, nurse notified and he got pain meds. Will be co-treating with OT due to poor patient mobility, strength, endurance, visual impairments, coordinate UE and LE during activity, safety and reduce risk of fal ls. Appearance Patient in bed post tx with nurse call, phone, tray, all needs met, bed alarm on. Mental Status Patient Orientation: Person, Confused Transfers SCALE: Activities may be completed with or without assistive devices. 6-Bmlnwhezry-zjljrcs completes the activity by him/herself with no assistance from a helper. 5-Set-up or Clean-up Assistance-helper sets up or cleans up; patient completes activity. [place] assists only prior to or following the activity. 4-Supervision or Touching Assistance-helper provides verbal cues and/or touch ing/steadying and/or contact guard assistance as patient completes activity. Assistance may be provided throughout the activity or intermittently. 3-Partial/Moderate Assistance-helper does LESS THAN HALF the effort. [place] lifts, holds or supports trunk or limbs, but provides less than half the effort. 2-Substantial/Maximal Assistance-helper does MORE THAN HALF the effort. [place] lifts or holds trunk or limbs and provides more than half the effort. 2-Bkyaotaat-rmwbym does ALL the effort. Patient does none of the effort to complete the activity. Or, the assistance of 2 or more helpers is required for the patient to complete the activity. If activity was not attempted, code reason: 7-Patient Refused. 9-Not Applicable-not attempted and the patient did not perform the activity before the current illness, exacerbation or injury. 10-Not Attempted due to Environmental Limitations-(lack of equipment, weather restraints, etc.). 88-Not Attempted due to Medical Conditions or Safety Concerns. Roll Left & Right (QC): 6 Sit to Lying (QC): 6 Sit to Stand (QC): 4 Chair/Vea-nw-Ktemu Xfer(QC): 4 Patient in recliner, patient has a sponge bath and dresses, needs assist and guarding with standing and positioning, then from there ambulates into the hallway. Gait Training Distance: 50'x3 Walk 10 feet (QC): 4 Walk 50 ft with 2 Turns(QC): 4 Gait Assistive Device: FWW WC follow, patient need to sit pretty abruptly when he gets tired, patient has more low back pain today, needs some assist guiding walker and many verbal cues for direction. Wheelchair Training Does the Pt Use a Wheelchair?: Yes Wheel 50 ft with 2 turns (QC): 4 Wheel 150 ft (QC): 4 Type of Wheelchair: Manual cues for direction and safety Neuromuscular several stnding activities involving bilateral UE activity, concentrating on balance and trunk strengthening Treatments PT worked on bed mobility and transfers, ambulation, WC mobility, standing and trunk strengthening, OT worked on bathing, dressing, UE activities Assessment Current Status: Fair Progress Patient has slowly improving functional mobility but back pain limited his distance of ambulation PT Short Term Goals Short Term Goals Time Frame: Apr 11, 2020 Roll Left & Right: 5 Sit to lyin Lying to sitting on side of be: 5 Sit to stand: 4 Chair/iot-js-nxhoa transfer: 4 Walk 10 feet: 4 Walk 50 feet with two turns: 3 PT Nurse Practitioner Adult Goals Nurse Practitioner Adult Goals PT Nurse Practitioner Adult Goals Time Frame: Apr 25, 2020 Roll Left & Right (QC): 6 Sit to Lying (QC): 6 Lying-Sitting on Side/Bed(QC): 6 Sit to Stand (QC): 6 Chair/Mqm-se-Srmth Xfer(QC): 6 Toilet Transfer (QC): 6 Car Transfer (QC): 4 Does the Patient Walk: Yes Walk 10 feet (QC): 4 Walk 50ft with 2 Turns (QC): 4 Walk 150 ft (QC): 9 Walking 10ft on Uneven Surface: 3 1 Step (curb) (QC): 3 4 Steps (QC): 9 12 Steps (QC): 9 Picking up an Object (QC): 9 Does the Pt use WC or Scooter?: Yes Wheel 50 feet with 2 turns (QC: 6 Type: Manual Wheel 150 feet: 6 Type: Manual PT Plan Problem List Problem List: Activity Tolerance, Functional Strength, Safety, Balance, Gait, Transfer, Bed Mobility Treatment/Plan Treatment Plan: Continue Plan of Care Treatment Plan: Bed Mobility, Education, Functional Activity Kera, Functional Strength, Group Therapy, Gait, Safety, Therapeutic Exercise, Transfers Treatment Duration: Apr 25, 2020 Frequency: At least 5 of 7 days/Wk (IRF) Estimated Hrs Per Day: 1.5 hours per day Patient and/or Family Agrees t: Yes Safety Risks/Education Patient Education: Gait Training, Transfer Techniques, Correct Positioning, W/C Management, Safety Issues Teaching Recipient: Patient Teaching Methods: Demonstration, Discussion Response to Teaching: Reinforcement Needed Time/GCodes Time In: 0900 Time Out: 1015 Total Billed Treatment Time: 75 Total Billed Treatment 1 visit FA 75' IVÁN DUKE PT Apr 05, 2020 10:13
--- NOTE | 2020-04-05 10:17 | Occupational Ther Daily Note ---
OT Current Status-Daily Note Subjective Pt seated in recliner, agreeable to OT/PT cotreat. Pt reports 8/10 pain in back and foot, nurse notified and provided pt with medication. Mental Status/Objective Patient Orientation: Person, Confused ADL-Treatment Therapy Code Descriptions/Definitions Functional [place] Measure: 0=Not Assessed/NA 4=Minimal Assistance 1=Total Assistance 5=Supervision or Setup 2=Maximal Assistance 6=Modified [place] 3=Moderate Assistance 7=Complete IndependenceSCALE: Activities may be completed with or without assistive devices. 4-Phutkpbpvr-grchhod completes the activity by him/herself with no assistance from a helper. 5-Set-up or Clean-up Assistance-helper sets up or cleans up; patient completes activity. [place] assists only prior to or following the activity. 4-Supervision or Touching Assistance-helper provides verbal cues and/or touching/steadying and/or contact guard assistance as patient completes activity. Assistance may be provided throughout the activity or intermittently. 3-Partial/Moderate Assistance-helper does LESS THAN HALF the effort. [place] lifts, holds or supports trunk or limbs, but provides less than half the effort. 2-Substantial/Maximal Assistance-helper does MORE THAN HALF the effort. [place] lifts or holds trunk or limbs and provides more than half the effort. 6-Escolumtk-yprgyk does ALL the effort. Patient does none of the effort to complete the activity. Or, the assistance of 2 or more helpers is required for the patient to complete the activity. If activity was not attempted, code reason: 7-Patient Refused. 9-Not Applicable-not attempted and the patient did not perform the activity before the current illness, exacerbation or injury. 10-Not Attempted due to Environmental Limitations-(lack of equipment, weather restraints, etc.). 88-Not Attempted due to Medical Conditions or Safety Concerns. Bathing Location: L Arm, R Arm, Chest, Abdomen, Perineal Area Shower/Bathe Self (QC): 1 (Assist x2 in stand to wash buttocks, pt able ot wash UEs, chest/abdomen, and periarea in sitting. Assist with BLEs for thoroughness) Upper Body Dressing (QC): 4 (Cue for orientation of shirt and to locate tag. Pt then able to don.) Lower Body Dressing (QC): 1 (Assist x2 in stand for pant hike, slight assist ance to thread BLEs) On/Off Footwear: 3 (Pt able to doff, min A donning for minor adjustments) Toileting Hygiene (QC): 1 (Pt stood at FWW to use urinal, OT assisted with managing clothing, and placing urinal.) Other Treatment OT/PT cotreat due to skill of 2 clinicians which a rehabilitation attendant could not perform in order to coordinate UE/LE with tasks, and due to pt's limitations in strength, activity tolerance, mobility, transfers, and visual deficit. OT focused on ADLS, UE placement, cues for sequencing and safety, and cues to scan/attend to R visual field, PT focused on LE placement, gross overall movement, ambulation, and transfers. Pt completed sponge bath and dressing at recliner, while completing pant hike, pt states need to urinate. OT assists in placing urinal, and managing pants up. Pt used FWW to perform functional mobility with w/c follow. Pt ambulated 50'x3. Pt taken to therapy gym. In order to increase dynamic standing balance, R visual attention, and RUE coordination, pt located wooden pegs in R visual field and placed into wooden pegboard. With placing pegs, pt moved peg around board until he located a hole. Pt took a seated rest break with task. Pt then stood at table and completed bilateral UE fine motor activity to increase bilateral integration, dynamic standing balance, and visual processing. Pt removed beads from minimal resistance theraputty. Pt performed w/c mobility around [facility] common area/2nd floor, requiring assistance and max verbal cues with turns towards the R side. Pt returned to room, requests to transfer to bed. Post tx, pt laying in bed, call light in reach and all needs met. Bed alarm on. Education OT Patient Education: Correct positioning, Energy conservation, Exercise program, Modified ADL techniques, Progress toward Goal/Update tx plan, Purpose of tx/functional activities, Safety issues, Transfer techniques, W/C management Teaching Recipient: Patient Teaching Methods: Discussion Response to Teaching: Verbalize Understanding, Reinforcement Needed OT Short Term Goals Short Term Goals Time Frame: Apr 19, 2020 Oral hygiene: 5 Toileting hygiene: 3 Shower/bathe self: 3 Upper body dressin Lower body dressin OT Senior Living Goals Senior Product Analyst Goals Time Frame: Apr 26, 2020 Eating (QC): 6 Oral Hygiene (QC): 6 Toileting Hygiene (QC): 6 Shower/Bathe Self (QC): 4 Upper Body Dressing (QC): 5 Lower Body Dressing (QC): 5 On/Off Footwear (QC): 5 Additional Goals: 1-Demonstrate ADL Tasks, 2-Verbalize Understanding, 3- ImproveStrength/Kera 1=Demonstrate adherence to instructed precautions during ADL tasks. 2=Patient will verbalize/demonstrate understanding of assistive devices/modifications for ADL. 3=Patient will improve strength/tolerance for activity to enable patient to perform ADL's. OT Education/Plan Problem List/Assessment Assessment: Decreased Activ Tolerance, Decreased UE Strength, Impaired Funct Balance, Impaired I ADL's, Impaired Self-Care Skills, Visual-Perceptual Deficit Discharge Recommendations Plan/Recommendations: Continue POC Treatment Plan/Plan of Care Patient would benefit from OT for education, treatment and training to promote independence in ADL's, mobility, safety and/or upper extremity function for ADL's. Plan of Care: ADL Retraining, Functional Mobility, Group Exercise/Act as Ind, UE Funct Exercise/Act, UE Neuromus Re-Ed/Coord, Visual/Perceptual Retrain, W/C Management Training Treatment Duration: Apr 26, 2020 Frequency: At least 5 of 7 days/Wk (IRF) Estimated Hrs Per Day: 1.5 hours per day Agreement: Yes Rehab Potential: Fair Time/GCodes Start Time: 09:00 Stop Time: 10:15 Total Time Billed (hr/min): 75 Billed Treatment Time cotreat x75' 1, ADL 2 (30'), FA 3 (45') LUCILLE PACE OT Apr 05, 2020 10:17
--- NOTE | 2020-04-05 12:20 | Cardiology Progress Note ---
Subjective Date Seen by Provider: Apr 05, 2020 Time Seen by Provider: 12:19 Subjective/Events-last exam Patient was seen at bedside, complaining of nasal congestion. No chest pain Review of Systems General: No Chills, No Night Sweats, No Fatigue, No Malaise, No Appetite, No Other HEENT: No Head Aches, No Visual Changes, No Eye Pain, No Ear Pain, No Dysphasia, No Sinus Congestion, No Post Nasal Drip, No Sore Throat, No Other Pulmonary: No Dyspnea, No Cough, No Pleuritic Chest Pain, No Other Cardiovascular: No: Chest Pain, Palpitations, Orthopnea, Paroxysmal Noc. Dyspnea, Edema, Lt Headedness, Other Objective-Cardiology Exam Last Set of Vital Signs Vital Signs 04/05/20 04/05/20 04/05/20 06:00 08:42 09:00 Temp 36.8 Pulse 65 Resp 16 B/P (MAP) 120/65 (83) Pulse Ox 94 O2 Delivery Room Air Capillary Refill : I&O Intake and Output 04/05/20 00:00 Intake Total 1130 ml Balance 1130 ml Intake Oral 1130 ml # Voids 6 # Bowel Movements 1 General: Alert, Oriented X3, Cooperative HEENT: Atraumatic Neck: Supple, No JVD, No Thyromegaly Lungs: Clear to Auscultation, Normal Air Movement Heart: Regular Rate, Normal S1, Normal S2, No Murmurs Abdomen: Normal Bowel Sounds, Soft, No Tenderness, No Hepatosplenomegaly, No Masses Extremities: No Clubbing, No Cyanosis, No Edema, Normal Pulses, No Tenderness/Swelling Skin: No Rashes, No Breakdown, No Significant Lesion Neuro: Normal Speech Psych/Mental Status: Mental Status NL, Mood NL A/P-Cardiology Admission Diagnosis CVA Carotid artery stenosis Paroxysmal atrial flutter HTN Assessment/Plan CVA, Neurologic deficits consisting of confusion, dyphasia, and R-sided vision loss: CVA (acute infarction involving most of the left posterior cerebral artery distribution) vs mass effect (hypodensities along the temporal lobe more in the white matter, worrisome for an underlying mass per CT and MRI of the head on 03-25-20 and 03-26-20, respectively) Carotid artery stenosis, CTA of 03-26-20: 70% stenosis of the right internal carotid artery. There is a 70 to 80% stenosis of the left internal carotid artery. 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 The left vertebral artery has approximately 70% stenosis at its origin and is fairly prominent vessel throughout the remainder of its course. Per Dr. Sanders's recommendations, continue on Plavix and f/u in 6 weeks as outpatient. Brief atrial flutter with 2:1 AV conduction on 03/30/20 (lasting only a few seconds), started on Eliquis. Continue to monitor. Echo of 03/26/20: LVEF 60-65%, grade 1 diastolic dysfunction, mild to mod enlargement of LA, PASP 25 - 30 mmHg Hypertension, currently borderline hypotensive, I'll decrease amlodipine to 5 mg daily and monitor tolerance and response HLD - started on Lipitor. BERNICE MONTERO MD Apr 05, 2020 12:20
--- NOTE | 2020-04-05 13:13 | PM&R Progress Note ---
Subjective HPI/CC On Admission Date Seen by Provider: Apr 05, 2020 Time Seen by Provider: 12:45 Subjective/Events-last exam 04/05/20: Left foot pain improved No issues otherwise Walking pretty well 04/04/20: No change in the left foot pain but it does appear to be less erythema Keflex maintained and S/P steroid injection yesterday 04/03/20: Left foot continues to be an issue Slightly red so I did start him on Keflex 500 QID I did speak with Dr. Goodwin who recommended one dose of steroid to see if we can decrease the inflammation for any type of gout problem No other issues reported 04/02/20: Uric acid was elevated at 8.[address] Goodwin who ordered the test Toenail care provided Plavix and oral anticoagulants tolerated well Walked in to see him and he had taken his pants longterm down his legs Depends diaper intact 04/01/20: Pt really cant walk very well today Dr. Goodwin will be in for toenail care Reports foot pain but it varies whether he reports it hurts or it doesnt Incontinence now Very confused Eliquis started along with his Plavix 03/31/20: More confused today Dr Barajas evaluated a run of atrial flutter of 160 last night for a brief moment so added Eliquis and maintained on Plavix for carotid stenosis Difficulty transferring Podiatry consult tomorrow 03/30/20: Up in chair today Incontinent now Dysphagia 2 diet tolerated Did not eat lunch Sleepy Vision changes are profound 03/29/20: Patient seems to be progressing very well Able to walk farther today Seems more alert and less confused today Outperforming with therapy today No pain reported ST working with him for swallowing and cognition Checked meds and labs Review of Systems General: Fatigue, Malaise Neurological: Weakness, Incoordination, Confusion Objective Exam Vital Signs Vital Signs Date Time Temp Pulse Resp B/P (MAP) Pulse Ox O2 Delivery O2 Flow Rate FiO2 04/06/20 05:20 36.4 62 16 107/61 (76) 92 Room Air Capillary Refill : General Appearance: No Apparent Distress, WD/WN, Chronically ill HEENT: PERRL/EOMI, TMs Normal, Normal ENT Inspection, Pharynx Normal Neck: Full Range of Motion, Normal Inspection, Non Tender, Supple, Carotid Bruit Respiratory: Chest Non Tender, Lungs Clear, Normal Breath Sounds, No Accessory Muscle Use, No Respiratory Distress Cardiovascular: Regular Rate, Rhythm, No Edema, No Gallop, No JVD, No Murmur, Normal Peripheral Pulses Gastrointestinal: Normal Bowel Sounds, No Organomegaly, No Pulsatile Mass, Non Tender, Soft Back: Normal Inspection, No CVA Tenderness, No Vertebral Tenderness Extremity: Normal Capillary Refill, Normal Inspection, Normal Range of Motion, Non Tender, No Calf Tenderness, No Pedal Edema Neurologic/Psychiatric: Alert, Normal Mood/Affect, 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 FIM Transfers Therapy Code Descriptions/Definitions Functional [place] Measure: 0=Not Assessed/NA 4=Minimal Assistance 1=Total Assistance 5=Supervision or Setup 2=Maximal Assistance 6=Modified [place] 3=Moderate Assistance 7=Complete IndependenceSCALE: Activities may be completed with or without assistive devices. 8-Uclroqlifn-mkixkuu completes the activity by him/herself with no assistance f rom a helper. 5-Set-up or Clean-up Assistance-helper sets up or cleans up; patient completes activity. [place] assists only prior to or following the activity. 4-Supervision or Touching Assistance-helper provides verbal cues and/or touching/steadying and/or contact guard assistance as patient completes activity. Assistance may be provided throughout the activity or intermittently. 3-Partial/Moderate Assistance-helper does LESS THAN HALF the effort. [place] lifts, holds or supports trunk or limbs, but provides less than half the effort. 2-Substantial/Maximal Assistance-helper does MORE THAN HALF the effort. [place] lifts or holds trunk or limbs and provides more than half the effort. 1-Chqozodnh-exanvv does ALL the effort. Patient does none of the effort to complete the activity. Or, the assistance of 2 or more helpers is required for the patient to complete the activity. If activity was not attempted, code reason: 7-Patient Refused. 9-Not Applicable-not attempted and the patient did not perform the activity before the current illness, exacerbation or injury. 10-Not Attempted due to Environmental Limitations-(lack of equipment, weather restraints, etc.). 88-Not Attempted due to Medical Conditions or Safety Concerns. Roll Left to Right (QC): 6 Sit to Lying (QC): 6 Sit to Stand (QC): 4 Chair/Ygq-wa-Gxnvl Xfer(QC): 4 Car Transfer (QC): 3 (verbal and tactile cues required. ) Gait Training Distance: 50'x3 Walk 10 feet (QC): 4 Walk 50 ft with 2 Turns(QC): 4 Walk 150 ft (QC): 88 Walking 10ft/uneven surface-QC: 3 Gait Persons Needed: 2 Gait Assistive Device: FWW Wheelchair Training Does the Pt Use a Wheelchair?: Yes Wheel 50 ft with 2 turns (QC): 4 Wheel 150 ft (QC): 4 Type of Wheelchair: Manual Stair Training 1 Step (curb) (QC): 88 (approached step but pt unable to safely attempt.) 4 Steps (QC): 88 12 Steps (QC): 88 Balance Picking up an Object (QC): 88 ADL-Treatment Eating (QC): 5 (Based on clincial judgement, pt would require set up assistance with task.) Oral Hygiene (QC): 2 (MaxA, assistance needed to put toothpaste on brush. pt able to put brush in mouth, but assistance needed to throughouly brush teeth as pt performed biting movements) Bathing Location: L Arm, R Arm, Chest, Abdomen, Perineal Area Shower/Bathe Self (QC): 1 (Assist x2 in stand to wash buttocks, pt able ot wash UEs, chest/abdomen, and periarea in sitting. Assist with BLEs for thoroughness) Upper Body Dressing (QC): 4 (Cue for orientation of shirt and to locate tag. Pt then able to don.) Lower Body Dressing (QC): 1 (Assist x2 in stand for pant hike, slight assistance to thread BLEs) On/Off Footwear (QC): 3 (Pt able to doff, min A donning for minor adjustments) Toileting Hygiene (QC): 1 (Pt stood at FWW to use urinal, OT assisted with managing clothing, and placing urinal.) Toilet Transfer (QC): 1 Assessment/Plan Assessment and Plan Assess & Plan/Chief Complaint Assessment: s/p acute ischemic stroke Bilateral carotid stenosis has f/u [address] Sanders CTA revealed bilateral carotid stenosis >70%, chronically occluded right vertebral artery, left vertebral artery stenosis >70% Vertebral artery stenosis/occlusion Impaired vision in both eyes Dementia 03/06 SLUMS HTN HLD DVT prophylaxis: Lovenox Chronic debility and non-ambulatory for 2 years per Atrial flutter noted on Tely 03/30/20 at 160 HR briefly so starte don OAC 03/31/20 Left foot pain cellulitis vs. gout? Keflex and Solumedrol initiated 04/03/20 Plan: IRF protocol Wheelchair bound at home Statin Monitor closely 03/29/20: Able to ambulate a lot more today Feels good about progress ST to help with swallowing 03/30/20: Advanced diet Incontinence care Vision issues 03/31/20: Added OAC to Plavix for atrial flutter run on Tely last night and reviewed by Dr Barajas Confusion monitoring 04/01/20: Podiatry appreciated Monitor BP OAC and Plavix required 04/02/20: Monitor confusion Continue aggressive therapy OAC and Plavix 04/03/20: Left foot gout versus cellulitis 04/03/20 Monitor closely 1 dose of steroids should not place him at risk for bleeding 04/04/20: Monitor left foot Monitor BP 04/05/20: Improved left foot pain Monitor for falls (1) 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 Status: Acute (2) Carotid stenosis, bilateral Status: Acute (3) Right homonymous hemianopsia due to recent cerebral infarction Status: Acute (4) Vertebral artery stenosis/occlusion Status: Acute (5) Impaired vision in both eyes Status: Acute (6) HLD (hyperlipidemia) Status: Acute (7) HTN (hypertension) Status: Acute AYALA PARKS DO Apr 05, 2020 13:13
--- NOTE | 2020-04-05 14:22 | NUR ---
"RD ASSESSMENT PMHx: dementia; current - CVA PT INTERACTION: Pt was awake and pleasant during nutrition follow-up. Note pt has hx of dementia, per chart review. Pt states he has been eating pretty well since last assessment. Note avg PO intake 47% x3d, per chart review. Pt states no issues with n/v/c/d since last assessment. Note last BM was 04/04, and pt currently on bowel regimen of colace BID, senna BID, and miralax BID, per chart review. Est. kcal needs: 0660-0542 kcal | 20-25 kcal/kg Est. Pro needs: 71-89 g Pro | 0.8-1.0 g Pro/kg PES STATEMENT: Inadequate oral intake (NI-2.1) related to loss of appetite, as evidenced by pt interview, and avg PO intake 47% x3d, per chart review. INTERVENTION: Continue with current diet order of DYS2 Mechanically Altered diet. Pt may benefit from nutrition supplementation if PO intake declines. Will continue to follow and reassess as pt needs, intake, and status change. Magui GREEN, MS RD LD [phone] cell"
--- NOTE | 2020-04-05 14:46 | Speech Therapy Daily Note ---
Speech Daily Progress Note Subjective Date Seen by Provider: Apr 05, 2020 Time Seen by Provider: 00:30 Patient was resting in his bed following his session of OT and PT. Objective Patient completed a series of "what if?" scenarios he may encounter upon his return home with 75% given mod to max cuing. Assessment Assessment Current Status: Fair Progress Treatment Plan Continue Plan of Care Speech Short Term Goals Short Term Goals Short Term Goals 1) Patient will complete memory tasks related to his daily needs with 80% accuracy given minimal cues. 2) Patient will complete tasks safety awareness to his daily needs with 80% accuracy given minimal cues. 3) Patient will complete problem solving tasks related to his daily needs with 80% accuracy given minimal cues. 4) Patient will tolerate least restrictive diet level without s/s of aspiration at 80% with minimal cues. 5) Patient/caregiver will utilize compensatory strategies as trained at 90% with minimal cues. Speech Sciences Dean Goals Sciences Dean Goals Patient will improve cognitive-communication abilities in order to complete daily tasks with decreased assistance. Patient will maintain adequate nutrition/hydration via safe effective swallow function. Speech-Plan Patient/Family Goals Patient/Family Goals: Patient is scheduled to return to his home next week. Patient will require home services to meet his daily needs Treatment Plan Speech Therapy Treatment Plan: Continue Plan of Care Treatment Duration: Apr 12, 2020 Frequency: 4 times per week (Patient will receive skilled ST 4-5x per week) Estimated Hrs Per Day: .5 hour per day Rehab Potential: Fair Barriers to Learning: Patient's recent CVA, cognitive deficits, prior fall with injury Pt/Family Agrees to Plan: Yes Safety Risks/Education Teaching Recipient: Patient Teaching Methods: Demonstration, Discussion Response to Teaching: Verbalize Understanding, Return Demonstration Education Topics Provided: Continued safety while on the ARU, continued safety with oral intake, communication of wants/needs Time Speech Therapy Time In: 11:00 Speech Therapy Time Out: 11:30 Total Billed Time: 30 Billed Treatment Time 1, ROSS, HOLDEN Cruz Apr 05, 2020 14:46
[2020-04-05 16:18] VITALS: BP 109/58
[2020-04-05] MEDS: SALINE NASAL SPRAY (OCEAN) 45 ML BTL PRN (16:49)
[2020-04-05] MEDS: ALPRAZolam 0.25 MG (XANAX) TAB PO PRN (23:08)
[2020-04-06 05:20] VITALS: BP 107/61
[2020-04-06 08:00] VITALS: BP 123/65
[2020-04-06] MEDS: SALINE NASAL SPRAY (OCEAN) 45 ML BTL SCH ×4 (08:53→20:47)
[2020-04-06] MEDS: CEPHALEXIN 250 MG (KEFLEX) CAP PO SCH ×4 (08:53→20:46)
[2020-04-06] MEDS: APIXABAN 5 MG (ELIQUIS) TABLET PO SCH ×2 (08:54→20:46)
[2020-04-06] MEDS: polyethylene glycoL POWDER 17 GM (MIRALAX) PACK PO SCH ×2 (08:54→21:00)
[2020-04-06] MEDS: DOCUSATE SODIUM 100 MG (COLACE) CAP PO SCH ×2 (08:54→21:00)
[2020-04-06] MEDS: amLODIPine 5 MG (NORVASC) TAB PO SCH (08:54)
[2020-04-06] MEDS: CARVEDILOL 12.5 MG (COREG) TABLET PO SCH ×2 (08:54→20:46)
[2020-04-06] MEDS: SENNA W/DOCUSATE (SENOKOT S) TABLET PO SCH ×2 (08:55→21:00)
[2020-04-06] MEDS: CLOPIDOGREL 75 MG (PLAVIX) TABLET PO SCH (08:55)
[2020-04-06] MEDS: FLUTICASONE NASAL SPRAY (FLONASE) 16 GM BTL NS SCH (09:00)
[2020-04-06] MEDS: ZINC OXIDE 16% OINT (BUTT PASTE) 57 GM TUBE TOP SCH ×2 (09:01→20:48)
[2020-04-06] MEDS: MICONAZOLE 2% POWDER (DESENEX AF) 90 GM TOP SCH ×2 (09:01→20:48)
--- NOTE | 2020-04-06 10:00 | NUR ---
COOPERATIVE. REMAINS CONFUSED AND BED/CHAIR ALARMS UTILIZED. DOESN'T LIKE THICKENED LIQUIDS. IV AT LEAST 9 DAYS OLD AND DC'D. HAS URINARY INCONTINENCE, BUT WILL SOMETIMES USE URINAL. DID TELL NURSE WHEN NEEDED TO EXPEL BM AND ASSISTED UP TO COMMODE. LEFT FOOT APPEARS LESS TENDER COMPARED TO EARLIER IN THE WEEK.
--- NOTE | 2020-04-06 10:27 | Cardiology Progress Note ---
Subjective Date Seen by Provider: Apr 06, 2020 Time Seen by Provider: 10:27 Subjective/Events-last exam Patient is laying down in bed. No new complaint. Review of Systems General: No Chills, No Night Sweats, No Fatigue, No Malaise, No Appetite, No Other HEENT: No Head Aches, No Visual Changes, No Eye Pain, No Ear Pain, No Dysphasia, No Sinus Congestion, No Post Nasal Drip, No Sore Throat, No Other Pulmonary: No Dyspnea, No Cough, No Pleuritic Chest Pain, No Other Cardiovascular: No: Chest Pain, Palpitations, Orthopnea, Paroxysmal Noc. Dyspnea, Edema, Lt Headedness, Other Objective-Cardiology Exam Last Set of Vital Signs Vital Signs 04/06/20 05:20 Temp 36.4 Pulse 62 Resp 16 B/P (MAP) 107/61 (76) Pulse Ox 92 O2 Delivery Room Air Capillary Refill : I&O Intake and Output 04/06/20 00:00 Intake Total 1010 ml Output Total 175 ml Balance 835 ml Intake Oral 1010 ml Output Urine Total 175 ml # Voids 2 # Urine Diapers 5 # Bowel Movements 1 General: Alert, Oriented X3, Cooperative HEENT: Atraumatic Neck: Supple, No JVD, No Thyromegaly Lungs: Clear to Auscultation, Normal Air Movement Heart: Regular Rate, Normal S1, Normal S2, No Murmurs Abdomen: Normal Bowel Sounds, Soft, No Tenderness, No Hepatosplenomegaly, No Masses Extremities: No Clubbing, No Cyanosis, No Edema, Normal Pulses, No Tenderness/Swelling Skin: No Rashes, No Breakdown, No Significant Lesion Neuro: Normal Speech Psych/Mental Status: Mental Status NL, Mood NL A/P-Cardiology Admission Diagnosis CVA Carotid artery stenosis Paroxysmal atrial flutter HTN Assessment/Plan CVA, Neurologic deficits consisting of confusion, dyphasia, and R-sided vision loss: CVA (acute infarction involving most of the left posterior cerebral artery distribution) vs mass effect (hypodensities along the temporal lobe more in the white matter, worrisome for an underlying mass per CT and MRI of the head on 03-25-20 and 03-26-20, respectively) Carotid artery stenosis, CTA of 03-26-20: 70% stenosis of the right internal carotid artery. There is a 70 to 80% stenosis of the left internal carotid artery. The right vertebral artery appears to be chronically occluded with recon stitution at the skull base. The left vertebral artery has approximately 70% stenosis at its origin and is fairly prominent vessel throughout the remainder of its course. Per Dr. Sanders's recommendations, continue on Plavix and f/u in 6 weeks as outpatient. Brief atrial flutter with 2:1 AV conduction on 03/30/20 (lasting only a few seconds), started on Eliquis. Continue to monitor. Echo of 03/26/20: LVEF 60-65%, grade 1 diastolic dysfunction, mild to mod enlargement of LA, PASP 25 - 30 mmHg Hypertension, currently borderline hypotensive, I'll decrease amlodipine to 5 mg daily and monitor tolerance and response Hyperlipidemia, maintained on Lipitor BERNICE MONTERO MD Apr 06, 2020 10:27 am
--- NOTE | 2020-04-06 11:42 | Physical Therapy Daily Note ---
PT Daily Note-Current Subjective "I'm tired." Pt reluctantly agrees to amb with this TERRITORY SERVICE REPRESENTATIVE from chair to door. During route to door pt turns to HOB despite this TERRITORY SERVICE REPRESENTATIVE trying to persuade pt to continue to the door. Pt sits prematurely at end of bed due to fatigue. Pt then agrees to ex in bed. Once in bed pt refuses due to fatigue. Transfers SCALE: Activities may be completed with or without assistive devices. 4-Jhosaycfck-pbbvkin completes the activity by him/herself with no assistance from a helper. 5-Set-up or Clean-up Assistance-helper sets up or cleans up; patient completes activity. [place] assists only prior to or following the activity. 4-Supervision or Touching Assistance-helper provides verbal cues and/or touching/steadying and/or contact guard assistance as patient completes activity. Assistance may be provided throughout the activity or intermittently. 3-Partial/Moderate Assistance-helper does LESS THAN HALF the effort. Dix lifts, holds or supports trunk or limbs, but provides less than half the effort. 2-Substantial/Maximal Assistance-helper does MORE THAN HALF the effort. [place] lifts or holds trunk or limbs and provides more than half the effort. 0-Nrxofzzwl-puipqb does ALL the effort. Patient does none of the effort to complete the activity. Or, the assistance of 2 or more helpers is required for the patient to complete the activity. If activity was not attempted, code reason: 7-Patient Refused. 9-Not Applicable-not attempted and the patient did not perform the activity before the current illness, exacerbation or injury. 10-Not Attempted due to Environmental Limitations-(lack of equipment, weather restraints, etc.). 88-Not Attempted due to Medical Conditions or Safety Concerns. Treatments Pt amb with FWW x 15'. Pt transferred to bed mod (I) on (L) side, curled up in position. Pt unable to be persuaded to participate in ther ex. Pt resting with call light and all needs met. Ambu alarm activated. Assessment Current Status: Poor Progress Poor tolerance to treatment. Pt limited by fatigue per pt. PT Short Term Goals Short Term Goals Time Frame: Apr 11, 2020 Roll Left & Right: 5 Sit to lyin Lying to sitting on side of be: 5 Sit to stand: 4 Chair/nlm-ct-izuez transfer: 4 Walk 10 feet: 4 Walk 50 feet with two turns: 3 PT Correction Goals Country Director Goals PT Correction Goals Time Frame: Apr 25, 2020 Roll Left & Right (QC): 6 Sit to Lying (QC): 6 Lying-Sitting on Side/Bed(QC): 6 Sit to Stand (QC): 6 Chair/Ier-wi-Haatl Xfer(QC): 6 Toilet Transfer (QC): 6 Car Transfer (QC): 4 Does the Patient Walk: Yes Walk 10 feet (QC): 4 Walk 50ft with 2 Turns (QC): 4 Walk 150 ft (QC): 9 Walking 10ft on Uneven Surface: 3 1 Step (curb) (QC): 3 4 Steps (QC): 9 12 Steps (QC): 9 Picking up an Object (QC): 9 Does the Pt use WC or Scooter?: Yes Wheel 50 feet with 2 turns (QC: 6 Type: Manual Wheel 150 feet: 6 Type: Manual PT Plan Treatment/Plan Treatment Plan: Continue Plan of Care Treatment Plan: Bed Mobility, Education, Functional Activity Kera, Functional Strength, Group Therapy, Gait, Safety, Therapeutic Exercise, Transfers Treatment Duration: Apr 25, 2020 Frequency: At least 5 of 7 days/Wk (IRF) Estimated Hrs Per Day: 1.5 hours per day Patient and/or Family Agrees t: Yes Time/GCodes Time In: 915 Time Out: 930 Total Billed Treatment Time: 15 Total Billed Treatment 1, gait 15' ARTHUR MERRILL CPTA Apr 06, 2020 11:42
--- NOTE | 2020-04-06 12:31 | PM&R Progress Note ---
Subjective HPI/CC On Admission Date Seen by Provider: Apr 06, 2020 Time Seen by Provider: 12:45 Subjective/Events-last exam 04/06/20: Left foot pain improved DC IV since it has remained in place for several days Improved transfers Not drinking much due to thickened liquids 04/05/20: Left foot pain improved No issues otherwise Walking pretty well 04/04/20: No change in the left foot pain but it does appear to be less erythema Keflex maintained and S/P steroid injection yesterday 04/03/20: Left foot continues to be an issue Slightly red so I did start him on Keflex 500 QID I did speak with Dr. Goodwin who recommended one dose of steroid to see if we can decrease the inflammation for any type of gout problem No other issues reported 04/02/20: Uric acid was elevated at 8.[address] Goodwin who ordered the test Toenail care provided Plavix and oral anticoagulants tolerated well Walked in to see him and he had taken his pants alf down his legs Depends diaper intact 04/01/20: Pt really cant walk very well today Dr. Goodwin will be in for toenail care Reports foot pain but it varies whether he reports it hurts or it doesnt Incontinence now Very confused Eliquis started along with his Plavix 03/31/20: More confused today Dr Barajas evaluated a run of atrial flutter of 160 last night for a brief moment so added Eliquis and maintained on Plavix for carotid stenosis Difficulty transferring Podiatry consult tomorrow 03/30/20: Up in chair today Incontinent now Dysphagia 2 diet tolerated Did not eat lunch Sleepy Vision changes are profound 03/29/20: Patient seems to be progressing very well Able to walk farther today Seems more alert and less confused today Outperforming with therapy today No pain reported ST working with him for swallowing and cognition Checked meds and labs Review of Systems General: Fatigue, Malaise Neurological: Weakness, Incoordination Objective Exam Vital Signs Vital Signs Date Time Temp Pulse Resp B/P (MAP) Pulse Ox O2 Delivery O2 Flow Rate FiO2 04/07/20 05:54 37.4 78 18 114/67 (83) 95 Room Air Capillary Refill : General Appearance: No Apparent Distress, WD/WN, Chronically ill HEENT: PERRL/EOMI, TMs Normal, Normal ENT Inspection, Pharynx Normal Neck: Full Range of Motion, Normal Inspection, Non Tender, Supple, Carotid Bruit Respiratory: Chest Non Tender, Lungs Clear, Normal Breath Sounds, No Accessory Muscle Use, No Respiratory Distress Cardiovascular: Regular Rate, Rhythm, No Edema, No Gallop, No JVD, No Murmur, Normal Peripheral Pulses Gastrointestinal: Normal Bowel Sounds, No Organomegaly, No Pulsatile Mass, Non Tender, Soft Back: Normal Inspection, No CVA Tenderness, No Vertebral Tenderness Extremity: Normal Capillary Refill, Normal Inspection, Normal Range of Motion, Non Tender, No Calf Tenderness, No Pedal Edema Neurologic/Psychiatric: Alert, Normal Mood/Affect, 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 FIM Transfers Therapy Code Descriptions/Definitions Functional [place] Measure: 0=Not Assessed/NA 4=Minimal Assistance 1=Total Assistance 5=Supervision or Setup 2=Maximal Assistance 6=Modified [place] 3=Moderate Assistance 7=Complete IndependenceSCALE: Activities may be completed with or without assistive devices. 3-Nizaiqvwen-uvocydg completes the activity by him/herself with no assistance from a helper. 5-Set-up or Clean-up Assistance-helper sets up or cleans up; patient completes activity. [place] assists only prior to or following the activity. 4-Supervision or Touching Assistance-helper provides verbal cues and/or touchin g/steadying and/or contact guard assistance as patient completes activity. Assistance may be provided throughout the activity or intermittently. 3-Partial/Moderate Assistance-helper does LESS THAN HALF the effort. [place] lifts, holds or supports trunk or limbs, but provides less than half the effort. 2-Substantial/Maximal Assistance-helper does MORE THAN HALF the effort. [place] lifts or holds trunk or limbs and provides more than half the effort. 4-Yssfpakpx-cghfft does ALL the effort. Patient does none of the effort to complete the activity. Or, the assistance of 2 or more helpers is required for the patient to complete the activity. If activity was not attempted, code reason: 7-Patient Refused. 9-Not Applicable-not attempted and the patient did not perform the activity before the current illness, exacerbation or injury. 10-Not Attempted due to Environmental Limitations-(lack of equipment, weather restraints, etc.). 88-Not Attempted due to Medical Conditions or Safety Concerns. Roll Left to Right (QC): 6 Sit to Lying (QC): 6 Sit to Stand (QC): 4 Chair/Ldi-vd-Slzvk Xfer(QC): 4 Car Transfer (QC): 3 (verbal and tactile cues required. ) Gait Training Distance: 50'x3 Walk 10 feet (QC): 4 Walk 50 ft with 2 Turns(QC): 4 Walk 150 ft (QC): 88 Walking 10ft/uneven surface-QC: 3 Gait Persons Needed: 2 Gait Assistive Device: FWW Wheelchair Training Does the Pt Use a Wheelchair?: Yes Wheel 50 ft with 2 turns (QC): 4 Wheel 150 ft (QC): 4 Type of Wheelchair: Manual Stair Training 1 Step (curb) (QC): 88 (approached step but pt unable to safely attempt.) 4 Steps (QC): 88 12 Steps (QC): 88 Balance Picking up an Object (QC): 88 ADL-Treatment Eating (QC): 5 (Based on clincial judgement, pt would require set up assistance with task.) Oral Hygiene (QC): 2 (MaxA, assistance needed to put toothpaste on brush. pt able to put brush in mouth, but assistance needed to throughouly brush teeth as pt performed biting movements) Bathing Location: L Arm, R Arm, Chest, Abdomen, Perineal Area Shower/Bathe Self (QC): 1 (Assist x2 in stand to wash buttocks, pt able ot wash UEs, chest/abdomen, and periarea in sitting. Assist with BLEs for thoroughness) Upper Body Dressing (QC): 4 (Cue for orientation of shirt and to locate tag. Pt then able to don.) Lower Body Dressing (QC): 1 (Assist x2 in stand for pant hike, slight assistance to thread BLEs) On/Off Footwear (QC): 3 (Pt able to doff, min A donning for minor adjustments) Toileting Hygiene (QC): 1 (Pt stood at FWW to use urinal, OT assisted with managing clothing, and placing urinal.) Toilet Transfer (QC): 1 Assessment/Plan Assessment and Plan Assess & Plan/Chief Complaint Assessment: s/p acute ischemic stroke Bilateral carotid stenosis has f/u [address] Sanders CTA revealed bilateral carotid stenosis >70%, chronically occluded right vertebral artery, left vertebral artery stenosis >70% Vertebral artery stenosis/occlusion Impaired vision in both eyes Dementia 03/06 SLUMS HTN HLD DVT prophylaxis: Lovenox Chronic debility and non-ambulatory for 2 years per Atrial flutter noted on Tely 03/30/20 at 160 HR briefly so starte don OAC 03/31/20 Left foot pain cellulitis vs. gout? Keflex and Solumedrol initiated 04/03/20 Plan: IRF protocol Wheelchair bound at home Statin Monitor closely 03/29/20: Able to ambulate a lot more today Feels good about progress ST to help with swallowing 03/30/20: Advanced diet Incontinence care Vision issues 03/31/20: Added OAC to Plavix for atrial flutter run on Tely last night and reviewed by Dr Barajas Confusion monitoring 04/01/20: Podiatry appreciated Monitor BP OAC and Plavix required 04/02/20: Monitor confusion Continue aggressive therapy OAC and Plavix 04/03/20: Left foot gout versus cellulitis 04/03/20 Monitor closely 1 dose of steroids should not place him at risk for bleeding 04/04/20: Monitor left foot Monitor BP 04/05/20: Improved left foot pain Monitor for falls 04/06/20: ST to hopefully increase to thin liquids Wednesday Monitor left foot (1) 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 Status: Acute (2) Carotid stenosis, bilateral Status: Acute (3) Right homonymous hemianopsia due to recent cerebral infarction Status: Acute (4) Vertebral artery stenosis/occlusion Status: Acute (5) Impaired vision in both eyes Status: Acute (6) HLD (hyperlipidemia) Status: Acute (7) HTN (hypertension) Status: Acute AYALA PARKS DO Apr 06, 2020 12:31
[2020-04-06] MEDS: ACETAMINOPHEN 325 MG TABLET PO PRN (15:17)
[2020-04-06 16:31] VITALS: BP 108/53
[2020-04-07 05:54] VITALS: BP 114/67
[2020-04-07 08:00] VITALS: BP 116/60
--- NOTE | 2020-04-07 09:00 | NUR ---
INCONTINENT LOOSE STOOL. CLEANED AND ASSISTED UP TO CHAIR.
[2020-04-07] MEDS: CARVEDILOL 12.5 MG (COREG) TABLET PO SCH ×2 (09:28→19:55)
[2020-04-07] MEDS: amLODIPine 5 MG (NORVASC) TAB PO SCH (09:28)
[2020-04-07] MEDS: MICONAZOLE 2% POWDER (DESENEX AF) 90 GM TOP SCH ×2 (09:28→19:56)
[2020-04-07] MEDS: CLOPIDOGREL 75 MG (PLAVIX) TABLET PO SCH (09:28)
[2020-04-07] MEDS: CEPHALEXIN 250 MG (KEFLEX) CAP PO SCH ×4 (09:28→19:56)
[2020-04-07] MEDS: APIXABAN 5 MG (ELIQUIS) TABLET PO SCH ×2 (09:28→19:55)
[2020-04-07] MEDS: ACETAMINOPHEN 325 MG TABLET PO PRN (09:29)
[2020-04-07] MEDS: FLUTICASONE NASAL SPRAY (FLONASE) 16 GM BTL NS SCH (09:30)
[2020-04-07] MEDS: SALINE NASAL SPRAY (OCEAN) 45 ML BTL SCH ×4 (09:31→19:56)
[2020-04-07] MEDS: SENNA W/DOCUSATE (SENOKOT S) TABLET PO SCH ×2 (09:31→19:24)
[2020-04-07] MEDS: polyethylene glycoL POWDER 17 GM (MIRALAX) PACK PO SCH ×2 (09:31→19:23)
[2020-04-07] MEDS: DOCUSATE SODIUM 100 MG (COLACE) CAP PO SCH ×2 (09:31→19:23)
[2020-04-07] MEDS: ZINC OXIDE 16% OINT (BUTT PASTE) 57 GM TUBE TOP SCH ×2 (09:32→19:56)
--- NOTE | 2020-04-07 12:30 | NUR ---
PAIGE AT INTERVALS. COMPLAIN BILATERAL FOOT PAIN. CAN HARDLY BEAR WEIGHT ON FEET DUE TO PAIN. DR. PARKS HERE AND LORTAB ADDED TO REGIMEN. TYLENOL DOES NOT SEEM TO HELP.
--- NOTE | 2020-04-07 12:40 | PM&R Progress Note ---
Subjective HPI/CC On Admission Date Seen by Provider: Apr 07, 2020 Time Seen by Provider: 13:30 Subjective/Events-last exam 04/07/20: Loose BM Sore feet Will add Hydrocodone Confusion noted 04/06/20: Left foot pain improved DC IV since it has remained in place for several days Improved transfers Not drinking much due to thickened liquids 04/05/20: Left foot pain improved No issues otherwise Walking pretty well 04/04/20: No change in the left foot pain but it does appear to be less erythema Keflex maintained and S/P steroid injection yesterday 04/03/20: Left foot continues to be an issue Slightly red so I did start him on Keflex 500 QID I did speak with Dr. Goodwin who recommended one dose of steroid to see if we can decrease the inflammation for any type of gout problem No other issues reported 04/02/20: Uric acid was elevated at 8.[address] Goodwin who ordered the test Toenail care provided Plavix and oral anticoagulants tolerated well Walked in to see him and he had taken his pants custodial down his legs Depends diaper intact 04/01/20: Pt really cant walk very well today Dr. Goodwin will be in for toenail care Reports foot pain but it varies whether he reports it hurts or it doesnt Incontinence now Very confused Eliquis started along with his Plavix 03/31/20: More confused today Dr Barajas evaluated a run of atrial flutter of 160 last night for a brief moment so added Eliquis and maintained on Plavix for carotid stenosis Difficulty transferring Podiatry consult tomorrow 03/30/20: Up in chair today Incontinent now Dysphagia 2 diet tolerated Did not eat lunch Sleepy Vision changes are profound 03/29/20: Patient seems to be progressing very well Able to walk farther today Seems more alert and less confused today Outperforming with therapy today No pain reported ST working with him for swallowing and cognition Checked meds and labs Review of Systems General: Fatigue Musculoskeletal: foot pain Neurological: Confusion Objective Exam Vital Signs Vital Signs Date Time Temp Pulse Resp B/P (MAP) Pulse Ox O2 Delivery O2 Flow Rate FiO2 04/07/20 09:00 Room Air 04/07/20 05:54 37.4 78 18 114/67 (83) 95 Capillary Refill : General Appearance: No Apparent Distress, WD/WN, Chronically ill HEENT: PERRL/EOMI, TMs Normal, Normal ENT Inspection, Pharynx Normal Neck: Full Range of Motion, Normal Inspection, Non Tender, Supple, Carotid Bruit Respiratory: Chest Non Tender, Lungs Clear, Normal Breath Sounds, No Accessory Muscle Use, No Respiratory Distress Cardiovascular: Regular Rate, Rhythm, No Edema, No Gallop, No JVD, No Murmur, Normal Peripheral Pulses Gastrointestinal: Normal Bowel Sounds, No Organomegaly, No Pulsatile Mass, Non Tender, Soft Back: Normal Inspection, No CVA Tenderness, No Vertebral Tenderness Extremity: Normal Capillary Refill, Normal Inspection, Normal Range of Motion, Non Tender, No Calf Tenderness, No Pedal Edema Neurologic/Psychiatric: Alert, Normal Mood/Affect, 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 FIM Transfers Therapy Code Descriptions/Definitions Functional [place] Measure: 0=Not Assessed/NA 4=Minimal Assistance 1=Total Assistance 5=Supervision or Setup 2=Maximal Assistance 6=Modified [place] 3=Moderate Assistance 7=Complete IndependenceSCALE: Activities may be completed with or without assistive devices. 1-Uvzxraqquc-fmzdczj completes the activity by him/herself with no assistance from a helper. 5-Set-up or Clean-up Assistance-helper sets up or cleans up; patient completes activity. [place] assists only prior to or following the activity. 4-Supervision or Touching Assistance-helper provides verbal cues and/or touching/steadying and/or contact guard assistance as patient completes activity. Assistance may be provided throughout the activity or intermittently. 3-Partial/Moderate Assistance-helper does LESS THAN HALF the effort. [place] lifts, holds or supports trunk or limbs, but provides less than half the effort. 2-Substantial/Maximal Assistance-helper does MORE THAN HALF the effort. [place] lifts or holds trunk or limbs and provides more than half the effort. 6-Dlohzifai-ecyrzq does ALL the effort. Patient does none of the effort to complete the activity. Or, the assistance of 2 or more helpers is required for the patient to complete the activity. If activity was not attempted, code reason: 7-Patient Refused. 9-Not Applicable-not attempted and the patient did not perform the activity before the current illness, exacerbation or injury. 10-Not Attempted due to Environmental Limitations-(lack of equipment, weather restraints, etc.). 88-Not Attempted due to Medical Conditions or Safety Concerns. Roll Left to Right (QC): 6 Sit to Lying (QC): 6 Sit to Stand (QC): 4 Chair/Hgf-in-Pdngz Xfer(QC): 4 Car Transfer (QC): 3 (verbal and tactile cues required. ) Gait Training Distance: 50'x3 Walk 10 feet (QC): 4 Walk 50 ft with 2 Turns(QC): 4 Walk 150 ft (QC): 88 Walking 10ft/uneven surface-QC: 3 Gait Persons Needed: 2 Gait Assistive Device: FWW Wheelchair Training Does the Pt Use a Wheelchair?: Yes Wheel 50 ft with 2 turns (QC): 4 Wheel 150 ft (QC): 4 Type of Wheelchair: Manual Stair Training 1 Step (curb) (QC): 88 (approached step but pt unable to safely attempt.) 4 Steps (QC): 88 12 Steps (QC): 88 Balance Picking up an Object (QC): 88 ADL-Treatment Eating (QC): 5 (Based on clincial judgement, pt would require set up assistance with task.) Oral Hygiene (QC): 2 (MaxA, assistance needed to put toothpaste on brush. pt able to put brush in mouth, but assistance needed to throughouly brush teeth as pt performed biting movements) Bathing Location: L Arm, R Arm, Chest, Abdomen, Perineal Area Shower/Bathe Self (QC): 1 (Assist x2 in stand to wash buttocks, pt able ot wash UEs, chest/abdomen, and periarea in sitting. Assist with BLEs for thoroughness) Upper Body Dressing (QC): 4 (Cue for orientation of shirt and to locate tag. Pt then able to don.) Lower Body Dressing (QC): 1 (Assist x2 in stand for pant hike, slight assistance to thread BLEs) On/Off Footwear (QC): 3 (Pt able to doff, min A donning for minor adjustments) Toileting Hygiene (QC): 1 (Pt stood at FWW to use urinal, OT assisted with managing clothing, and placing urinal.) Toilet Transfer (QC): 1 Assessment/Plan Assessment and Plan Assess & Plan/Chief Complaint Assessment: s/p acute ischemic stroke Bilateral carotid stenosis has f/u [address] Sanders CTA revealed bilateral carotid stenosis >70%, chronically occluded right vertebral artery, left vertebral artery stenosis >70% Vertebral artery stenosis/occlusion Impaired vision in both eyes Dementia 03/06 SLUMS HTN HLD DVT prophylaxis: Lovenox Chronic debility and non-ambulatory for 2 years per Atrial flutter noted on Tely 03/30/20 at 160 HR briefly so starte don OAC 03/31/20 Left foot pain cellulitis vs. gout? Keflex and Solumedrol initiated 04/03/20 Plan: IRF protocol Wheelchair bound at home Statin Monitor closely 03/29/20: Able to ambulate a lot more today Feels good about progress ST to help with swallowing 03/30/20: Advanced diet Incontinence care Vision issues 03/31/20: Added OAC to Plavix for atrial flutter run on Tely last night and reviewed by Dr Barajas Confusion monitoring 04/01/20: Podiatry appreciated Monitor BP OAC and Plavix required 04/02/20: Monitor confusion Continue aggressive therapy OAC and Plavix 04/03/20: Left foot gout versus cellulitis 04/03/20 Monitor closely 1 dose of steroids should not place him at risk for bleeding 04/04/20: Monitor left foot Monitor BP 04/05/20: Improved left foot pain Monitor for falls 04/06/20: ST to hopefully increase to thin liquids Wednesday Monitor left foot 04/07/20: Monitor closely Hydrocodone Check labs in am (1) 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 Status: Acute (2) Carotid stenosis, bilateral Status: Acute (3) Right homonymous hemianopsia due to recent cerebral infarction Status: Acute (4) Vertebral artery stenosis/occlusion Status: Acute (5) Impaired vision in both eyes Status: Acute (6) HLD (hyperlipidemia) Status: Acute (7) HTN (hypertension) Status: Acute AYAAL PARKS DO Apr 07, 2020 12:40
--- NOTE | 2020-04-07 13:29 | Cardiology Progress Note ---
Subjective Date Seen by Provider: Apr 07, 2020 Time Seen by Provider: 13:28 Subjective/Events-last exam Patient is laying down in bed, sleeping, no reported issues Objective-Cardiology Exam Last Set of Vital Signs Vital Signs 04/07/20 04/07/20 05:54 09:00 Temp 37.4 Pulse 78 Resp 18 B/P (MAP) 114/67 (83) Pulse Ox 95 O2 Delivery Room Air Capillary Refill : I&O Intake and Output 04/06/20 23:59 Intake Total 1400 ml Output Total 425 ml Balance 975 ml Intake Oral 1400 ml Output Urine Total 425 ml # Voids 3 # Urine Diapers 2 General: Alert, Cooperative, Other (sleeping during my evaluation) HEENT: Atraumatic Neck: Supple, No JVD, No Thyromegaly Lungs: Clear to Auscultation, Normal Air Movement Heart: Regular Rate, Normal S1, Normal S2, No Murmurs Abdomen: Normal Bowel Sounds, Soft, No Tenderness, No Hepatosplenomegaly, No Masses Extremities: No Clubbing, No Cyanosis, No Edema, Normal Pulses, No Tenderness/Swelling Skin: No Rashes, No Breakdown, No Significant Lesion Psych/Mental Status: Mental Status NL, Mood NL A/P-Cardiology Admission Diagnosis CVA Carotid artery stenosis Paroxysmal atrial flutter HTN Assessment/Plan CVA, Neurologic deficits consisting of confusion, dyphasia, and R-sided vision loss: CVA (acute infarction involving most of the left posterior cerebral artery distribution) vs mass effect (hypodensities along the temporal lobe more in the white matter, worrisome for an underlying mass per CT and MRI of the head on 03-25-20 and 03-26-20, respectively) Carotid artery stenosis, CTA of 03-26-20: 70% stenosis of the right internal carotid artery. There is a 70 to 80% stenosis of the left internal carotid artery. 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 The left vertebral artery has approximately 70% stenosis at its origin and is fairly prominent vessel throughout the rem ainder of its course. Per Dr. Sanders's recommendations, continue on Plavix and f/u in 6 weeks as outpatient. Brief atrial flutter with 2:1 AV conduction on 03/30/20 (lasting only a few seconds), started on Eliquis. Continue to monitor. Echo of 03/26/20: LVEF 60-65%, grade 1 diastolic dysfunction, mild to mod enlargement of LA, PASP 25 - 30 mmHg Hypertension, still borderline hypotensive, continue on current medication monitor Hyperlipidemia, maintained on Lipitor BERNICE MONTERO MD Apr 07, 2020 13:28
--- NOTE | 2020-04-07 15:00 | NUR ---
YA, , WILL BE HERE TOMORROW FOR FAMILY EDUCATION AND AWARE SHE CAN STAY TO VISIT THEN.
[2020-04-07 17:13] VITALS: BP 130/69
--- NOTE | 2020-04-07 18:00 | NUR ---
CONTINUES TO EAT AND DRINK POORLY BECAUSE DOES NOT LIKE THE DYSPHAGIA DIET AND NECTAR THICKENED LIQUIDS. HOPEFULLY WILL HAVE SWALLOW STUDY REPEATED IN AM.
[2020-04-07] MEDS: HYDROcodone/APAP 5 MG/325 MG (LORTAB) TAB PO PRN (19:55)
[2020-04-08 05:20] VITALS: BP 118/51
[2020-04-08 05:44] LABS: BASOPHILS # (AUTO) 0.1 10^3/uL (0.0-0.1); BASOPHILS % (AUTO) 0 % (0-10); EOSINOPHILS # (AUTO) 0.2 10^3/uL (0.0-0.3); EOSINOPHILS % (AUTO) 1 % (0-10); HEMATOCRIT 38 % (40-54); LYMPHOCYTES # (AUTO) 1.6 10^3/uL (1.0-4.0); LYMPHOCYTES % (AUTO) 12 % (12-44); MEAN CORPUSCULAR HEMOGLOBIN 34 pg (25-34); MEAN CORPUSCULAR HGB CONC 34 g/dL (32-36); MEAN CORPUSCULAR VOLUME 100 fL (80-99); MEAN PLATELET VOLUME 11.4 fL (9.0-12.2); MONOCYTES # (AUTO) 1.9 10^3/uL (0.0-1.0); MONOCYTES % (AUTO) 14 % (0-12); NEUTROPHILS # (AUTO) 9.9 10^3/uL (1.8-7.8); NEUTROPHILS % (AUTO) 72 % (42-75); PLATELET COUNT 345 10^3/uL (130-400); WHITE BLOOD COUNT 13.8 10^3/uL (4.3-11.0)
[2020-04-08 05:46] LABS: ALBUMIN 3.3 GM/DL (3.2-4.5)
[2020-04-08 05:47] LABS: CHLORIDE 102 MMOL/L (98-107); POTASSIUM 2.9 MMOL/L (3.6-5.0); SODIUM 140 MMOL/L (135-145)
[2020-04-08 05:49] LABS: GLUCOSE 133 MG/DL (70-105); TOTAL PROTEIN 6.9 GM/DL (6.4-8.2)
[2020-04-08 05:50] LABS: CARBON DIOXIDE 24 MMOL/L (21-32)
[2020-04-08 05:51] LABS: BILIRUBIN,TOTAL 0.8 MG/DL (0.1-1.0)
[2020-04-08 05:52] LABS: ALKALINE PHOSPHATASE 67 U/L (40-136)
[2020-04-08 05:53] LABS: CREATININE SERUM 0.84 MG/DL (0.60-1.30); GFR ESTIMATED > 60
[2020-04-08 05:54] LABS: BUN/CREATININE RATIO 17
[2020-04-08 05:55] LABS: ALANINE AMINOTRANSFERASE 25 U/L (0-55)
[2020-04-08 08:15] VITALS: BP 109/55
[2020-04-08] MEDS: HYDROcodone/APAP 5 MG/325 MG (LORTAB) TAB PO PRN (08:21)
[2020-04-08] MEDS: CARVEDILOL 12.5 MG (COREG) TABLET PO SCH ×2 (08:21→20:22)
[2020-04-08] MEDS: ZINC OXIDE 16% OINT (BUTT PASTE) 57 GM TUBE TOP SCH ×2 (08:21→20:24)
[2020-04-08] MEDS: amLODIPine 5 MG (NORVASC) TAB PO SCH (08:21)
[2020-04-08] MEDS: APIXABAN 5 MG (ELIQUIS) TABLET PO SCH ×2 (08:21→20:22)
[2020-04-08] MEDS: CLOPIDOGREL 75 MG (PLAVIX) TABLET PO SCH (08:21)
[2020-04-08] MEDS: FLUTICASONE NASAL SPRAY (FLONASE) 16 GM BTL NS SCH (08:22)
[2020-04-08] MEDS: SALINE NASAL SPRAY (OCEAN) 45 ML BTL SCH ×4 (08:22→20:22)
--- NOTE | 2020-04-08 08:36 | PM&R Progress Note ---
Subjective HPI/CC On Admission Date Seen by Provider: Apr 08, 2020 Time Seen by Provider: 08:45 Subjective/Events-last exam 04/08/20: is at the bedside Hemoglobin 13.8 Potassium 2.9 started supplement Slight temperature of 37.9 Re-evaluating his swallowing Monitoring closely 04/07/20: Loose BM Sore feet Will add Hydrocodone Confusion noted 04/06/20: Left foot pain improved DC IV since it has remained in place for several days Improved transfers Not drinking much due to thickened liquids 04/05/20: Left foot pain improved No issues otherwise Walking pretty well 04/04/20: No change in the left foot pain but it does appear to be less erythema Keflex maintained and S/P steroid injection yesterday 04/03/20: Left foot continues to be an issue Slightly red so I did start him on Keflex 500 QID I did speak with Dr. Goodwin who recommended one dose of steroid to see if we can decrease the inflammation for any type of gout problem No other issues reported 04/02/20: Uric acid was elevated at 8.[address] Goodwin who ordered the test Toenail care provided Plavix and oral anticoagulants tolerated well Walked in to see him and he had taken his pants intermediate down his legs Depends diaper intact 04/01/20: Pt really cant walk very well today Dr. Goodwin will be in for toenail care Reports foot pain but it varies whether he reports it hurts or it doesnt Incontinence now Very confused Eliquis started along with his Plavix 03/31/20: More confused today Dr Barajas evaluated a run of atrial flutter of 160 last night for a brief moment so added Eliquis and maintained on Plavix for carotid stenosis Difficulty transferring Podiatry consult tomorrow 03/30/20: Up in chair today Incontinent now Dysphagia 2 diet tolerated Did not eat lunch Sleepy Vision changes are profound 03/29/20: Patient seems to be progressing very well Able to walk farther today Seems more alert and less confused today Outperforming with therapy today No pain reported ST working with him for swallowing and cognition Checked meds and labs Review of Systems General: Fatigue Musculoskeletal: foot pain Neurological: Weakness, Incoordination, Confusion Objective Exam Vital Signs Vital Signs Date Time Temp Pulse Resp B/P (MAP) Pulse Ox O2 Delivery O2 Flow Rate FiO2 04/08/20 20:33 Room Air 04/08/20 16:00 37.5 73 16 121/55 (77) 97 Capillary Refill : General Appearance: No Apparent Distress, WD/WN, Chronically ill HEENT: PERRL/EOMI, TMs Normal, Normal ENT Inspection, Pharynx Normal Neck: Full Range of Motion, Normal Inspection, Non Tender, Supple, Carotid Bruit Respiratory: Chest Non Tender, Lungs Clear, Normal Breath Sounds, No Accessory Muscle Use, No Respiratory Distress Cardiovascular: Regular Rate, Rhythm, No Edema, No Gallop, No JVD, No Murmur, Normal Peripheral Pulses Gastrointestinal: Normal Bowel Sounds, No Organomegaly, No Pulsatile Mass, Non Tender, Soft Back: Normal Inspection, No CVA Tenderness, No Vertebral Tenderness Extremity: Normal Capillary Refill, Normal Inspection, Normal Range of Motion, Non Tender, No Calf Tenderness, No Pedal Edema Neurologic/Psychiatric: Alert, Normal Mood/Affect, Abnormal [employer] worker II-XII, Ab normal Gait, Disoriented, Motor Weakness (generalized weakness 3/5 arms 2/5 legs but right sided neglect noted) Skin: Normal Color, Warm/Dry Lymphatic: No Adenopathy Results/Procedures Lab Patient resulted labs reviewed. FIM Transfers Therapy Code Descriptions/Definitions Functional [place] Measure: 0=Not Assessed/NA 4=Minimal Assistance 1=Total Assistance 5=Supervision or Setup 2=Maximal Assistance 6=Modified [place] 3=Moderate Assistance 7=Complete IndependenceSCALE: Activities may be completed with or without assistive devices. 7-Mshnbijywq-ryqwrfg completes the activity by him/herself with no assistance from a helper. 5-Set-up or Clean-up Assistance-helper sets up or cleans up; patient completes activity. [place] assists only prior to or following the activity. 4-Supervision or Touching Assistance-helper provides verbal cues and/or touching/steadying and/or contact guard assistance as patient completes activity. Assistance may be provided throughout the activity or intermittently. 3-Partial/Moderate Assistance-helper does LESS THAN HALF the effort. [place] lifts, holds or supports trunk or limbs, but provides less than half the effort. 2-Substantial/Maximal Assistance-helper does MORE THAN HALF the effort. [place] lifts or holds trunk or limbs and provides more than half the effort. 0-Lqctwdbah-wncyby does ALL the effort. Patient does none of the effort to complete the activity. Or, the assistance of 2 or more helpers is required for the patient to complete the activity. If activity was not attempted, code reason: 7-Patient Refused. 9-Not Applicable-not attempted and the patient did not perform the activity before the current illness, exacerbation or injury. 10-Not Attempted due to Environmental Limitations-(lack of equipment, weather restraints, etc.). 88-Not Attempted due to Medical Conditions or Safety Concerns. Roll Left to Right (QC): 6 Sit to Lying (QC): 6 Sit to Stand (QC): 4 Chair/Kkj-gi-Ziuap Xfer(QC): 4 Car Transfer (QC): 3 (verbal and tactile cues required. ) Gait Training Distance: 50'x3 Walk 10 feet (QC): 4 Walk 50 ft with 2 Turns(QC): 4 Walk 150 ft (QC): 88 Walking 10ft/uneven surface-QC: 3 Gait Persons Needed: 2 Gait Assistive Device: FWW Wheelchair Training Does the Pt Use a Wheelchair?: Yes Wheel 50 ft with 2 turns (QC): 4 Wheel 150 ft (QC): 4 Type of Wheelchair: Manual Stair Training 1 Step (curb) (QC): 88 (approached step but pt unable to safely attempt.) 4 Steps (QC): 88 12 Steps (QC): 88 Balance Picking up an Object (QC): 88 ADL-Treatment Eating (QC): 5 (Based on clincial judgement, pt would require set up assistance with task.) Oral Hygiene (QC): 2 (MaxA, assistance needed to put toothpaste on brush. pt able to put brush in mouth, but assistance needed to throughouly brush teeth as pt performed biting movements) Bathing Location: L Arm, R Arm, Chest, Abdomen, Perineal Area Shower/Bathe Self (QC): 1 (Assist x2 in stand to wash buttocks, pt able ot wash UEs, chest/abdomen, and periarea in sitting. Assist with BLEs for thoroughness) Upper Body Dressing (QC): 4 (Cue for orientation of shirt and to locate tag. Pt then able to don.) Lower Body Dressing (QC): 1 (Assist x2 in stand for pant hike, slight assistance to thread BLEs) On/Off Footwear (QC): 3 (Pt able to doff, min A donning for minor adjustments) Toileting Hygiene (QC): 1 (Pt stood at FWW to use urinal, OT assisted with managing clothing, and placing urinal.) Toilet Transfer (QC): 1 Assessment/Plan Assessment and Plan Assess & Plan/Chief Complaint Assessment: s/p acute ischemic stroke Bilateral carotid stenosis has f/u [address] Sanders CTA revealed bilateral carotid stenosis >70%, chronically occluded right vertebral artery, left vertebral artery stenosis >70% Vertebral artery stenosis/occlusion Impaired vision in both eyes Dementia 03/06 SLUMS HTN HLD DVT prophylaxis: Lovenox Chronic debility and non-ambulatory for 2 years per Atrial flutter noted on Tely 03/30/20 at 160 HR briefly so starte don OAC 03/31/20 Left foot pain cellulitis vs. gout? Keflex and Solumedrol initiated 04/03/20 Plan: IRF protocol Wheelchair bound at home Statin Monitor closely 03/29/20: Able to ambulate a lot more today Feels good about progress ST to help with swallowing 03/30/20: Advanced diet Incontinence care Vision issues 03/31/20: Added OAC to Plavix for atrial flutter run on Tely last night and reviewed by Dr Barajas Confusion monitoring 04/01/20: Podiatry appreciated Monitor BP OAC and Plavix required 04/02/20: Monitor confusion Continue aggressive therapy OAC and Plavix 04/03/20: Left foot gout versus cellulitis 04/03/20 Monitor closely 1 dose of steroids should not place him at risk for bleeding 04/04/20: Monitor left foot Monitor BP 04/05/20: Improved left foot pain Monitor for falls 04/06/20: ST to hopefully increase to thin liquids Wednesday Monitor left foot 04/07/20: Monitor closely Hydrocodone Check labs in am 04/08/20: Labs stable Monitor isolated low grade fever Continue treatment (1) 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 Status: Acute (2) Carotid stenosis, bilateral Status: Acute (3) Right homonymous hemianopsia due to recent cerebral infarction Status: Acute (4) Vertebral artery stenosis/occlusion Status: Acute (5) Impaired vision in both eyes Status: Acute (6) HLD (hyperlipidemia) Status: Acute (7) HTN (hypertension) Status: Acute AYALA PARKS DO Apr 08, 2020 08:36
[2020-04-08] MEDS: DOCUSATE SODIUM 100 MG (COLACE) CAP PO SCH ×2 (08:37→20:22)
[2020-04-08] MEDS: SENNA W/DOCUSATE (SENOKOT S) TABLET PO SCH ×2 (08:37→20:23)
[2020-04-08] MEDS: polyethylene glycoL POWDER 17 GM (MIRALAX) PACK PO SCH ×2 (08:37→20:23)
[2020-04-08] MEDS: MICONAZOLE 2% POWDER (DESENEX AF) 90 GM TOP SCH ×2 (08:37→20:24)
[2020-04-08] MEDS ORDERED: KCL 20 MEQ TAB (K-DUR) PO NR (08:45)
--- NOTE | 2020-04-08 08:53 | Cardiology Progress Note ---
Subjective Date Seen by Provider: Apr 08, 2020 Time Seen by Provider: 08:52 Subjective/Events-last exam Patient is sitting up in chair, denies any chest pain Objective-Cardiology Exam Last Set of Vital Signs Vital Signs 04/08/20 04/08/20 04/08/20 05:20 08:15 08:50 Temp 36.5 Pulse 78 Resp 18 B/P (MAP) 109/55 (73) Pulse Ox 97 O2 Delivery Room Air Capillary Refill : I&O Intake and Output 04/08/20 00:00 Intake Total 900 ml Output Total 350 ml Balance 550 ml Intake Oral 900 ml Output Urine Total 350 ml # Voids 3 # Urine Diapers 4 # Bowel Movements 1 General: Alert, Cooperative, Other (sleeping during my evaluation) HEENT: Atraumatic Neck: Supple, No JVD, No Thyromegaly Lungs: Clear to Auscultation, Normal Air Movement Heart: Regular Rate, Normal S1, Normal S2, No Murmurs Abdomen: Normal Bowel Sounds, Soft, No Tenderness, No Hepatosplenomegaly, No Masses Extremities: No Clubbing, No Cyanosis, No Edema, Normal Pulses, No Tenderness/Swelling Skin: No Rashes, No Breakdown, No Significant Lesion Psych/Mental Status: Mental Status NL, Mood NL Results Lab Laboratory Tests 04/08/20 04:12 A/P-Cardiology Admission Diagnosis CVA Carotid artery stenosis Paroxysmal atrial flutter HTN Assessment/Plan CVA, Neurologic deficits consisting of confusion, dyphasia, and R-sided vision loss: CVA (acute infarction involving most of the left posterior cerebral artery distribution) vs mass effect (hypodensities along the temporal lobe more in the white matter, worrisome for an underlying mass per CT and MRI of the head on 03-25-20 and 03-26-20, respectively) Carotid artery stenosis, CTA of 03-26-20: 70% stenosis of the right internal carotid artery. There is a 70 to 80% stenosis of the left internal carotid artery. 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 The left vertebral artery has approximately 70% stenosis at its origin and is fairly prominent vessel throughout the remainder of its course. Per Dr. Sanders's recommendations, continue on Plavix and f/u in 6 weeks as outpatient. Brief atrial flutter with 2:1 AV conduction on 03/30/20 (lasting only a few seconds), started on Eliquis. Continue to monitor. Echo of 03/26/20: LVEF 60-65%, grade 1 diastolic dysfunction, mild to mod enlargement of LA, PASP 25 - 30 mmHg Hypertension, still borderline hypotensive, continue on current medication monitor Hyperlipidemia, maintained on Lipitor Patient was seen and evaluated with Macy, examination performed, management plan was discussed, agree with the current scribed note, I made few changes to the note using Italic font Patient was seen at bedside, laying down comfortably I am stopping Norvasc due to borderline hypotension, continue to monitor blood pressure Patient is always in bed, sleeping, depressed mood, am adding Zoloft 50 mg daily and evaluate his tolerance and response MACY OSBORNE Apr 08, 2020 8:53 am BERNICE MONTERO MD Apr 08, 2020 12:11 pm
--- NOTE | 2020-04-08 10:00 | Physical Therapy Daily Note ---
PT Daily Note-Current Subjective Patient in bed pre tx, agrees to PT, has no complaints of pain but states he is tired, his is here to observe his progress to help determine DC plans. Will be co-treating with OT due to poor patient mobility, strength, endurance, coordinating UE and LE during activity, safety and reduce risk of falls. Appearance Patient in recliner post tx with nurse call, phone, tray, all needs met, chair alarm on. Mental Status Patient Orientation: Person, Confused Transfers SCALE: Activities may be completed with or without assistive devices. 6-Txpmetgbsu-etrfuyo completes the activity by him/herself with no assistance from a helper. 5-Set-up or Clean-up Assistance-helper sets up or cleans up; patient completes activity. [place] assists only prior to or following the activity. 4-Supervision or Touching Assistance-helper provides verbal cues and/or touching/steadying and/or contact guard assistance as patient completes activity. Assistance may be provided throughout the activity or intermittently. 3-Partial/Moderate Assistance-helper does LESS THAN HALF the effort. [place] lifts, holds or supports trunk or limbs, but provides less than half the effort. 2-Substantial/Maximal Assistance-helper does MORE THAN HALF the effort. [place] lifts or holds trunk or limbs and provides more than half the effort. 2-Cyxecnkyo-sbcplh does ALL the effort. Patient does none of the effort to complete the activity. Or, the assistance of 2 or more helpers is required for the patient to complete the activity. If activity was not attempted, code reason: 7-Patient Refused. 9-Not Applicable-not attempted and the patient did not perform the activity before the current illness, exacerbation or injury. 10-Not Attempted due to Environmental Limitations-(lack of equipment, weather restraints, etc.). 88-Not Attempted due to Medical Conditions or Safety Concerns. Roll Left & Right (QC): 4 Lying to Sitting/Side of Bed(Q: 4 Sit to Stand (QC): 4 Chair/Xgp-uw-Ceggu Xfer(QC): 4 Supine to sit with CGA, patient dresses sitting on the side of the bed and st ands with CGA and gets his pants pulled up. Patient then sits to rest and stands and transfers to with CGA. Patient ambulates from the bed out into the hallway about 10' before needing to sit. Patient propels manual WC to therapy gym and performs stand pivot to therapy table with CGA. Patient performs cone reaching activity, requiring him to scan on the right side, he refuses to participate any further not long after starting. Patient is then taken to the parallel bars to perform a standing UE activity, patient stands for a few seconds then refuses to participate and sits back down. Patient is encouraged to participate but it is obvious he has made up his mind to not do it. Patient is taken out into the hallway to try walking more. Patient ambulat es a couple of feet and then refuses to participate any more. Patient then propels his manual WC back to his room and performs a stand pivot transfer to recliner with CGA. Gait Training Distance: 10' Walk 10 feet (QC): 4 Gait Persons Needed: 1 Gait Assistive Device: FWW WC follow Wheelchair Training Does the Pt Use a Wheelchair?: Yes Wheel 50 ft with 2 turns (QC): 3 Type of Wheelchair: Manual 100'x2 Neuromuscular seated and standing UE reaching activity Treatments PT performed bed mobility and transfers, ambulation, WC mobility, standing and positioning during UE reaching activity, OT performed dressing, UE activity and safety Assessment Current Status: Poor Progress Patient refused to participate a lot and needed a lot of encouragement, had many rest breaks due to fatigue PT Short Term Goals Short Term Goals Time Frame: Apr 11, 2020 Roll Left & Right: 5 Sit to lyin Lying to sitting on side of be: 5 Sit to stand: 4 Chair/jia-uo-oozid transfer: 4 Walk 10 feet: 4 Walk 50 feet with two turns: 3 PT Halfway Goals Halfway Goals PT Auto Vinyl Top Installer Goals Time Frame: Apr 25, 2020 Roll Left & Right (QC): 6 Sit to Lying (QC): 6 Lying-Sitting on Side/Bed(QC): 6 Sit to Stand (QC): 6 Chair/Bxg-kn-Stvke Xfer(QC): 6 Toilet Transfer (QC): 6 Car Transfer (QC): 4 Does the Patient Walk: Yes Walk 10 feet (QC): 4 Walk 50ft with 2 Turns (QC): 4 Walk 150 ft (QC): 9 Walking 10ft on Uneven Surface: 3 1 Step (curb) (QC): 3 4 Steps (QC): 9 12 Steps (QC): 9 Picking up an Object (QC): 9 Does the Pt use WC or Scooter?: Yes Wheel 50 feet with 2 turns (QC: 6 Type: Manual Wheel 150 feet: 6 Type: Manual PT Plan Problem List Problem List: Activity Tolerance, Functional Strength, Safety, Balance, Gait, Transfer, Bed Mobility, ROM Treatment/Plan Treatment Plan: Continue Plan of Care Treatment Plan: Bed Mobility, Education, Functional Activity Kera, Functional Strength, Group Therapy, Gait, Safety, Therapeutic Exercise, Transfers Treatment Duration: Apr 25, 2020 Frequency: At least 5 of 7 days/Wk (IRF) Estimated Hrs Per Day: 1.5 hours per day Patient and/or Family Agrees t: Yes Safety Risks/Education Patient Education: Gait Training, Transfer Techniques, Correct Positioning, W/C Management, Safety Issues Teaching Recipient: Patient Teaching Methods: Demonstration, Discussion Response to Teaching: Reinforcement Needed Time/GCodes Time In: 0900 Time Out: 1000 Total Billed Treatment Time: 60 Total Billed Treatment 1 visit FA 60' co-treated with OT for 60' IVÁN DUKE PT Apr 08, 2020 10:00
--- NOTE | 2020-04-08 10:28 | Occupational Ther Daily Note ---
OT Current Status-Daily Note Subjective Pt stated that he did not want to do therapy due to pain and being tired. OT reassured the benefits of therapy and stated the need for him to go home with his . present for family training Mental Status/Objective Patient Orientation: Confused ADL-Treatment Therapy Code Descriptions/Definitions Functional [place] Measure: 0=Not Assessed/NA 4=Minimal Assistance 1=Total Assistance 5=Supervision or Setup 2=Maximal Assistance 6=Modified [place] 3=Moderate Assistance 7=Complete IndependenceSCALE: Activities may be completed with or without assistive devices. 6-Wlgfflwfwx-hkzqbbz completes the activity by him/herself with no assistance from a helper. 5-Set-up or Clean-up Assistance-helper sets up or cleans up; patient completes activity. [place] assists only prior to or following the activity. 4-Supervision or Touching Assistance-helper provides verbal cues and/or touching/steadying and/or contact guard assistance as patient completes activity. Assistance may be provided throughout the activity or intermittently. 3-Partial/Moderate Assistance-helper does LESS THAN HALF the effort. [place] lifts, holds or supports trunk or limbs, but provides less than half the effort. 2-Substantial/Maximal Assistance-helper does MORE THAN HALF the effort. [place] lifts or holds trunk or limbs and provides more than half the effort. 9-Qsbyxrwjq-kgpafa does ALL the effort. Patient does none of the effort to complete the activity. Or, the assistance of 2 or more helpers is required for the patient to complete the activity. If activity was not attempted, code reason: 7-Patient Refused. 9-Not Applicable-not attempted and the patient did not perform the activity before the current illness, exacerbation or injury. 10-Not Attempted due to Environmental Limitations-(lack of equipment, weather restraints, etc.). 88-Not Attempted due to Medical Conditions or Safety Concerns. Upper Body Dressing (QC): 5 (set up ) Lower Body Dressing (QC): 1 (Pt able to thread legs through pants. Assistance x2 to perform pants hike while standing. pt needed assistance to thread brief on) On/Off Footwear: 1 (assistance needed for all parts) Other Treatment OT/PT cotreat due to skill of 2 clinicians which a rehabilitation counselor could not perform in order to coordinate UE/LE with tasks, and due to pt's limitations in strength, activity tolerance, mobility, transfers, and visual deficit. OT focused on ADLS, UE placement, cues for sequencing and safety, and cues to scan/attend to R visual field, PT focused on LE placement, gross overall movement, ambulation, and transfers. Pt began tx supine in bed and instructed to sit EOB. Pt completed dressing sitting EOB. Pt transferred from EOB to standing at FWW and instructed to ambulate through doorway of room. At end of doorway of pt's room, pt stated that he needed a break and sat in w/c. After rest break, pt attempted to stand at FWW to begin to ambulate, but after taking a few steps, pt stated that he was tired and could not participate. OT reassured pt of the benefits of therapy and pt agreed to propel self in w/c to therapy gym. In gym, pt transferred to mat with SPT to participate in cone activity to encourage R visual field scanning, and increase activity tolerance. Pt completes activity but later refuses to participate any further. Pt transferred to w/ using SPT and participated in standing peg board activity at parallel bars to increase activity tolerance and to encourage R visual scanning. After standing and moving 2 pegs, pt stated that he did not want to do the activity anymore due to being unable to see. Pt refuses to participate any further although encouraged to. Pt taken to hallway for more functional mobility, walks a couple feet, sits and refuses to participate further. Pt propelled to room and transferred from w/c to recliner. Pt requested to lay down in bed instead of recliner, but OT explained benefits of staying in recliner and pt agreed to stay in recliner. Pt stated that he needed something, but could not describe what he wanted as he scanned the room. OT mentioned needing water and pt agreed. Pt's taken to shower room and educated on tub bench vs bath chair, with recommendation of bench at discharge. Post tx, pt in recliner with chair alarm on and all needs met. Education OT Patient Education: Correct positioning, Energy conservation, Exercise program, Instructions to caregiver, Modified ADL techniques, Progress toward Goal/Update tx plan, Purpose of tx/functional activities, Rehab process, Safety issues, Transfer techniques, W/C management Teaching Recipient: Patient, Significant Other Teaching Methods: Discussion Response to Teaching: Unable to Comprehend, Reinforcement Needed OT Short Term Goals Short Term Goals Time Frame: Apr 19, 2020 Oral hygiene: 5 Toileting hygiene: 3 Shower/bathe self: 3 Upper body dressin Lower body dressin OT Detention Goals Detention Goals Time Frame: Apr 26, 2020 Eating (QC): 6 Oral Hygiene (QC): 6 Toileting Hygiene (QC): 6 Shower/Bathe Self (QC): 4 Upper Body Dressing (QC): 5 Lower Body Dressing (QC): 5 On/Off Footwear (QC): 5 Additional Goals: 1-Demonstrate ADL Tasks, 2-Verbalize Understanding, 3- ImproveStrength/K[place] 1=Demonstrate adherence to instructed precautions during ADL tasks. 2=Patient will verbalize/demonstrate understanding of assistive devices/modifications for ADL. 3=Patient will improve strength/tolerance for activity to enable patient to perform ADL's. OT Education/Plan Problem List/Assessment Assessment: Decreased Activ Tolerance, Decreased UE Strength, Impaired Cognitio n, Impaired Funct Balance, Impaired I ADL's, Impaired Self-Care Skills, Visual- Perceptual Deficit Discharge Recommendations Plan/Recommendations: Continue POC Equpiment Recommendations-D/C: Extended Bath Bench Treatment Plan/Plan of Care Patient would benefit from OT for education, treatment and training to promote independence in ADL's, mobility, safety and/or upper extremity function for ADL's. Plan of Care: ADL Retraining, Functional Mobility, Group Exercise/Act as Ind, UE Funct Exercise/Act, UE Neuromus Re-Ed/Coord, Visual/Perceptual Retrain, W/C Management Training Treatment Duration: Apr 26, 2020 Frequency: At least 5 of 7 days/Wk (IRF) Estimated Hrs Per Day: 1.5 hours per day Agreement: Yes Rehab Potential: Fair Time/GCodes Start Time: 09:00 Stop Time: 10:00 Total Time Billed (hr/min): 60 Billed Treatment Time cotreat x60' 1, ADL (20'), FA 3 (40') LUCILLE PACE OT Apr 08, 2020 10:27
--- NOTE | 2020-04-08 11:02 | Occupational Ther Daily Note ---
OT Current Status-Daily Note Subjective Pt reported no pain, but explained that he wanted to lay down in bed post tx. OT explained the need stay up for lunch and safety issues of eating while laying in bed Mental Status/Objective Patient Orientation: Confused ADL-Treatment Therapy Code Descriptions/Definitions Functional [place] Measure: 0=Not Assessed/NA 4=Minimal Assistance 1=Total Assistance 5=Supervision or Setup 2=Maximal Assistance 6=Modified [place] 3=Moderate Assistance 7=Complete IndependenceSCALE: Activities may be completed with or without assistive devices. 4-Bvaychygta-kpnqgyd completes the activity by him/herself with no assistance from a helper. 5-Set-up or Clean-up Assistance-helper sets up or cleans up; patient completes activity. [place] assists only prior to or following the activity. 4-Supervision or Touching Assistance-helper provides verbal cues and/or touching/steadying and/or contact guard assistance as patient completes activity. Assistance may be provided throughout the activity or intermittently. 3-Partial/Moderate Assistance-helper does LESS THAN HALF the effort. [place] lifts, holds or supports trunk or limbs, but provides less than half the effort. 2-Substantial/Maximal Assistance-helper does MORE THAN HALF the effort. [place] lifts or holds trunk or limbs and provides more than half the effort. 1-Drvsgdkbw-ottalh does ALL the effort. Patient does none of the effort to complete the activity. Or, the assistance of 2 or more helpers is required for the patient to complete the activity. If activity was not attempted, code reason: 7-Patient Refused. 9-Not Applicable-not attempted and the patient did not perform the activity before the current illness, exacerbation or injury. 10-Not Attempted due to Environmental Limitations-(lack of equipment, weather restraints, etc.). 88-Not Attempted due to Medical Conditions or Safety Concerns. Oral Hygiene (QC): 4 (SBA, assistance needed to place toothpaste on toothbrush and cues to throughouly brush and rinse) Other Treatment Pt in recliner to begin tx and initially refused to do any therapy but agreed to wash face and brush teeth. Pt completed teeth brushing (SBA) and face washing (set up). OT placed hair brush on table in front of pt, pt then states he could brush his hair if he had a comb, OT cues pt to find comb on table. Pt then completed hair brushing SBA. Post tx, pt in recliner with chair alarm on, call light in reach and all needs met. Education OT Patient Education: Correct positioning, Modified ADL techniques, Progress toward Goal/Update tx plan, Purpose of tx/functional activities, Safety issues Teaching Recipient: Patient Teaching Methods: Discussion Response to Teaching: Unable to Comprehend, Reinforcement Needed OT Short Term Goals Short Term Goals Time Frame: Apr 19, 2020 Oral hygiene: 5 Toileting hygiene: 3 Shower/bathe self: 3 Upper body dressin Lower body dressin OT Computer Technician Goals Detention Goals Time Frame: Apr 26, 2020 Eating (QC): 6 Oral Hygiene (QC): 6 Toileting Hygiene (QC): 6 Shower/Bathe Self (QC): 4 Upper Body Dressing (QC): 5 Lower Body Dressing (QC): 5 On/Off Footwear (QC): 5 Additional Goals: 1-Demonstrate ADL Tasks, 2-Verbalize Understanding, 3- ImproveStrength/Kera 1=Demonstrate adherence to instructed precautions during ADL tasks. 2=Patient will verbalize/demonstrate understanding of assistive devices/ modifications for ADL. 3=Patient will improve strength/tolerance for activity to enable patient to perform ADL's. OT Education/Plan Problem List/Assessment Assessment: Decreased Activ Tolerance, Decreased UE Strength, Impaired Cognition, Impaired Coordination, Impaired Funct Balance, Impaired I ADL's, Impaired Self-Care Skills Discharge Recommendations Plan/Recommendations: Continue POC Treatment Plan/Plan of Care Patient would benefit from OT for education, treatment and training to promote independence in ADL's, mobility, safety and/or upper extremity function for ADL's. Plan of Care: ADL Retraining, Functional Mobility, Group Exercise/Act as Ind, UE Funct Exercise/Act, UE Neuromus Re-Ed/Coord, Visual/Perceptual Retrain, W/C Management Training Treatment Duration: Apr 26, 2020 Frequency: At least 5 of 7 days/Wk (IRF) Estimated Hrs Per Day: 1.5 hours per day Agreement: Yes Rehab Potential: Fair Time/GCodes Start Time: 10:45 Stop Time: 11:00 Total Time Billed (hr/min): 15 Billed Treatment Time 1, ADL (15') LUCILLE PACE OT Apr 08, 2020 11:02
--- NOTE | 2020-04-08 11:34 | NUR ---
CM/SS CONCURRENT DOCUMENTATION Patient's spouse Kimberly here this a.m. as planned to participate in and observe patient's therapy sessions. Patient presents as tired and requires motivation and encouragement to participate with repetitions and therapy interventions. Appian Bpm Developer visited with Kimberly about patient's post hospital care plan while she was observing patient's current level of performance. Kimberly stated that the family has discussed this matter and that they intend for patient to return home under family continuous monitor/assist. Their daughter plans a leave of absence from work to stay with patient while Kimberly is absent during work days and their son is going to stay with patient when the daughter cannot. Kimberly will be there evenings. DME: Kimberly identifies the need for a FWW. They have 4WW with seat, this would not be a safe option for patient at this time. HHC: Recommended, RN PT OT. Team to discuss patient Wednesday regarding target discharge, Kimberly aware. Invited her to ask if her daughter would like to come in for performance training prior to his release since she will be the primary person there during the day at home. Continue discharge planning in partnership with patient and family.
--- NOTE | 2020-04-08 11:35 | Speech Therapy Daily Note ---
Speech Daily Progress Note Subjective Date Seen by Provider: Apr 08, 2020 Time Seen by Provider: 00:30 Patient was resting in his recliner. He had just yelled out due to spilling his drink in his lap. OT assisted patient in getting dry pads placed in chair. Objective Patient completed trials with thin liquids this date without s/s of aspiration noted with cues to take small sips. Assessment Assessment Current Status: Good Progress Treatment Plan Continue Plan of Care Speech Short Term Goals Short Term Goals Short Term Goals 1) Patient will complete memory tasks related to his daily needs with 80% accuracy given minimal cues. 2) Patient will complete tasks safety awareness to his daily needs with 80% accuracy given minimal cues. 3) Patient will complete problem solving tasks related to his daily needs with 80% accuracy given minimal cues. 4) Patient will tolerate least restrictive diet level without s/s of aspiration at 80% with minimal cues. 5) Patient/caregiver will utilize compensatory strategies as trained at 90% with minimal cues. Speech Long-Term Goals Chain Offbearer Goals Patient will improve cognitive-communication abilities in order to complete daily tasks with decreased assistance. Patient will maintain adequate nutrition/hydration via safe effective swallow function. Speech-Plan Patient/Family Goals Patient/Family Goals: Patient's was here today for training prior to discharge. Treatment Plan Speech Therapy Treatment Plan: Continue Plan of Care Patient is being upgraded to thin liquids this date. Treatment Duration: Apr 12, 2020 Frequency: 4 times per week (Patient will receive skilled ST 4-5x per week) Estimated Hrs Per Day: .5 hour per day Rehab Potential: Fair Barriers to Learning: Patient's recent CVA, previous fall with injury, right side neglect Pt/Family Agrees to Plan: Yes Safety Risks/Education Teaching Recipient: Patient Teaching Methods: Demonstration, Discussion Response to Teaching: Verbalize Understanding, Return Demonstration Education Topics Provided: Safety of oral intake, diet change to thin liquids Time Speech Therapy Time In: 11:00 Speech Therapy Time Out: 11:30 Total Billed Time: 30 Billed Treatment Time 1ROSS DYST No WHORTON, BETHANIA ST Apr 08, 2020 11:35
--- NOTE | 2020-04-08 11:51 | Physical Therapy Daily Note ---
PT Daily Note-Current Subjective Patient in recliner pre tx, agrees to PT but he states he just wants to get back into the bed. Patient doesn't want to take any steps to the bed from the recliner (its about 3' from the recliner to the bed) and says he just "wants to do it the easy way". Encouraged patient to participate and that just standing and taking a couple of steps to the bed is the easiest way to get there. Eventually he agrees. Appearance Patient in bed post tx with nurse call, phone, tray, all needs met. Bed alarm on. Mental Status Patient Orientation: Person, Confused Transfers SCALE: Activities may be completed with or without assistive devices. 8-Nuvirutbvl-nbgmibe completes the activity by him/herself with no assistance from a helper. 5-Set-up or Clean-up Assistance-helper sets up or cleans up; patient completes activity. [place] assists only prior to or following the activity. 4-Supervision or Touching Assistance-helper provides verbal cues and/or touching/steadying and/or contact guard assistance as patient completes activity. Assistance may be provided throughout the activity or intermittently. 3-Partial/Moderate Assistance-helper does LESS THAN HALF the effort. [place] lifts, holds or supports trunk or limbs, but provides less than half the effort. 2-Substantial/Maximal Assistance-helper does MORE THAN HALF the effort. [place] lifts or holds trunk or limbs and provides more than half the effort. 7-Pebdaebov-naduor does ALL the effort. Patient does none of the effort to complete the activity. Or, the assistance of 2 or more helpers is required for the patient to complete the activity. If activity was not attempted, code reason: 7-Patient Refused. 9-Not Applicable-not attempted and the patient did not perform the activity before the current illness, exacerbation or injury. 10-Not Attempted due to Environmental Limitations-(lack of equipment, weather restraints, etc.). 88-Not Attempted due to Medical Conditions or Safety Concerns. Roll Left & Right (QC): 6 Sit to Lying (QC): 4 Sit to Stand (QC): 4 Chair/Cvl-qd-Souiy Xfer(QC): 3 Patient scoots in the recliner to the corner closest to the bed so he has the least distance to get to bed. He stands alf and tries to lunge for the bed, therapist assist to keep him from falling and he is seated on the side of the bed and he lays down. Patient is educated on his poor safety awareness and about the danger of what he just tried to do. Treatments bed mobility and transfers Assessment Current Status: Poor Progress poor safety awareness, seems to have increasing confusion PT Short Term Goals Short Term Goals Time Frame: Apr 11, 2020 Roll Left & Right: 5 Sit to lyin Lying to sitting on side of be: 5 Sit to stand: 4 Chair/jgm-td-kipyl transfer: 4 Walk 10 feet: 4 Walk 50 feet with two turns: 3 PT Manager Gallery Goals Manager Gallery Goals PT Group Home Goals Time Frame: Apr 25, 2020 Roll Left & Right (QC): 6 Sit to Lying (QC): 6 Lying-Sitting on Side/Bed(QC): 6 Sit to Stand (QC): 6 Chair/Chy-tv-Sohll Xfer(QC): 6 Toilet Transfer (QC): 6 Car Transfer (QC): 4 Does the Patient Walk: Yes Walk 10 feet (QC): 4 Walk 50ft with 2 Turns (QC): 4 Walk 150 ft (QC): 9 Walking 10ft on Uneven Surface: 3 1 Step (curb) (QC): 3 4 Steps (QC): 9 12 Steps (QC): 9 Picking up an Object (QC): 9 Does the Pt use WC or Scooter?: Yes Wheel 50 feet with 2 turns (QC: 6 Type: Manual Wheel 150 feet: 6 Type: Manual PT Plan Problem List Problem List: Activity Tolerance, Functional Strength, Safety, Balance, Gait, Transfer, Bed Mobility, ROM Treatment/Plan Treatment Plan: Continue Plan of Care Treatment Plan: Bed Mobility, Education, Functional Activity [place], Functional Strength, Group Therapy, Gait, Safety, Therapeutic Exercise, Transfers Treatment Duration: Apr 25, 2020 Frequency: At least 5 of 7 days/Wk (IRF) Estimated Hrs Per Day: 1.5 hours per day Patient and/or Family Agrees t: Yes Safety Risks/Education Patient Education: Transfer Techniques, Correct Positioning, Safety Issues Teaching Recipient: Patient Teaching Methods: Demonstration, Discussion Response to Teaching: Reinforcement Needed Time/GCodes Time In: 1140 Time Out: 1155 Total Billed Treatment Time: 15 Total Billed Treatment 1 visit FA [id number] PRADO PT Apr 08, 2020 11:51
[2020-04-08 16:00] VITALS: BP 121/55
[2020-04-08] MEDS: SERTRALINE 50 MG (ZOLOFT) TABLET PO SCH (20:23)
[2020-04-09 05:41] VITALS: BP 123/59
[2020-04-09] MEDS: KCL 20 MEQ TAB (K-DUR) PO SCH (06:00)
[2020-04-09] MEDS: CLOPIDOGREL 75 MG (PLAVIX) TABLET PO SCH (08:26)
[2020-04-09] MEDS: APIXABAN 5 MG (ELIQUIS) TABLET PO SCH ×2 (08:26→20:57)
[2020-04-09] MEDS: FLUTICASONE NASAL SPRAY (FLONASE) 16 GM BTL NS SCH (08:26)
[2020-04-09] MEDS: CARVEDILOL 12.5 MG (COREG) TABLET PO SCH ×2 (08:26→20:57)
[2020-04-09] MEDS: LOPERAMIDE 2 MG (IMODIUM) TABLET PO PRN (08:26)
[2020-04-09] MEDS: HYDROcodone/APAP 5 MG/325 MG (LORTAB) TAB PO PRN (08:26)
[2020-04-09] MEDS: SALINE NASAL SPRAY (OCEAN) 45 ML BTL SCH ×4 (08:27→20:55)
[2020-04-09] MEDS: DOCUSATE SODIUM 100 MG (COLACE) CAP PO SCH ×2 (08:56→20:56)
[2020-04-09] MEDS: polyethylene glycoL POWDER 17 GM (MIRALAX) PACK PO SCH ×2 (08:57→20:56)
[2020-04-09] MEDS: SENNA W/DOCUSATE (SENOKOT S) TABLET PO SCH ×2 (08:57→20:56)
--- NOTE | 2020-04-09 09:12 | PM&R Progress Note ---
Subjective HPI/CC On Admission Date Seen by Provider: Apr 09, 2020 Time Seen by Provider: 09:30 Subjective/Events-last exam 04/09/20: Patient refusing to participate with therapy most of the time now Loose stools noted Isolated low grade fever once day O x 2 Family can help him at DC Goal is to go home and with 04/08/20: is at the bedside Hemoglobin 13.8 Potassium 2.9 started supplement Slight temperature of 37.9 Re-evaluating his swallowing Monitoring closely 04/07/20: Loose BM Sore feet Will add Hydrocodone Confusion noted 04/06/20: Left foot pain improved DC IV since it has remained in place for several days Improved transfers Not drinking much due to thickened liquids 04/05/20: Left foot pain improved No issues otherwise Walking pretty well 04/04/20: No change in the left foot pain but it does appear to be less erythema Keflex maintained and S/P steroid injection yesterday 04/03/20: Left foot continues to be an issue Slightly red so I did start him on Keflex 500 QID I did speak with Dr. Goodwin who recommended one dose of steroid to see if we can decrease the inflammation for any type of gout problem No other issues reported 04/02/20: Uric acid was elevated at 8.[address] Goodwin who ordered the test Toenail care provided Plavix and oral anticoagulants tolerated well Walked in to see him and he had taken his pants jail down his legs Depends diaper intact 04/01/20: Pt really cant walk very well today Dr. Goodwin will be in for toenail care Reports foot pain but it varies whether he reports it hurts or it doesnt Incontinence now Very confused Eliquis started along with his Plavix 03/31/20: More confused today Dr Barajas evaluated a run of atrial flutter of 160 last night for a brief moment so added Eliquis and maintained on Plavix for carotid stenosis Difficulty transferring Podiatry consult tomorrow 03/30/20: Up in chair today Incontinent now Dysphagia 2 diet tolerated Did not eat lunch Sleepy Vision changes are profound 03/29/20: Patient seems to be progressing very well Able to walk farther today Seems more alert and less confused today Outperforming with therapy today No pain reported ST working with him for swallowing and cognition Checked meds and labs Review of Systems General: Fatigue, Malaise Neurological: Weakness, Incoordination, Confusion Objective Exam Vital Signs Vital Signs Date Time Temp Pulse Resp B/P (MAP) Pulse Ox O2 Delivery O2 Flow Rate FiO2 04/09/20 20:07 Room Air 04/09/20 16:00 36.8 70 16 121/57 (78) 93 Capillary Refill : General Appearance: No Apparent Distress, WD/WN, Chronically ill HEENT: PERRL/EOMI, TMs Normal, Normal ENT Inspection, Pharynx Normal Neck: Full Range of Motion, Normal Inspection, Non Tender, Supple, Carotid Bruit Respiratory: Chest Non Tender, Lungs Clear, Normal Breath Sounds, No Accessory Muscle Use, No Respiratory Distress Cardiovascular: Regular Rate, Rhythm, No Edema, No Gallop, No JVD, No Murmur, Normal Peripheral Pulses Gastrointestinal: Normal Bowel Sounds, No Organomegaly, No Pulsatile Mass, Non Tender, Soft Back: Normal Inspection, No CVA Tenderness, No Vertebral Tenderness Extremity: Normal Capillary Refill, Normal Inspection, Normal Range of Motion, Non Tender, No Calf Tenderness, No Pedal Edema Neurologic/Psychiatric: Alert, Normal Mood/Affect, Abnormal pinion polisher II-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 FIM Transfers Therapy Code Descriptions/Definitions Functional [place] Measure: 0=Not Assessed/NA 4=Minimal Assistance 1=Total Assistance 5=Supervision or Setup 2=Maximal Assistance 6=Modified [place] 3=Moderate Assistance 7=Complete IndependenceSCALE: Activities may be completed with or without assistive devices. 3-Ourmxdcwnh-utynzye completes the activity by him/herself with no assistance from a helper. 5-Set-up or Clean-up Assistance-helper sets up or cleans up; patient completes activity. [place] assists only prior to or following the activity. 4-Supervision or Touching Assistance-helper provides verbal cues and/or touching/steadying and/or contact guard assistance as patient completes activity. Assistance may be provided throughout the activity or intermittently. 3-Partial/Moderate Assistance-helper does LESS THAN HALF the effort. [place] lifts, holds or supports trunk or limbs, but provides less than half the effort. 2-Substantial/Maximal Assistance-helper does MORE THAN HALF the effort. [place] lifts or holds trunk or limbs and provides more than half the effort. 7-Dqouagkxu-zmnrbe does ALL the effort. Patient does none of the effort to complete the activity. Or, the assistance of 2 or more helpers is required for the patient to complete the activity. If activity was not attempted, code reason: 7-Patient Refused. 9-Not Applicable-not attempted and the patient did not perform the activity before the current illness, exacerbation or injury. 10-Not Attempted due to Environmental Limitations-(lack of equipment, weather restraints, etc.). 88-Not Attempted due to Medical Conditions or Safety Concerns. Roll Left to Right (QC): 6 Sit to Lying (QC): 4 Sit to Stand (QC): 4 Chair/Bgr-nk-Qhgwi Xfer(QC): 3 Car Transfer (QC): 3 (verbal and tactile cues required. ) Gait Training Distance: 10' Walk 10 feet (QC): 4 Walk 50 ft with 2 Turns(QC): 4 Walk 150 ft (QC): 88 Walking 10ft/uneven surface-QC: 3 Gait Persons Needed: 1 Gait Assistive Device: FWW Wheelchair Training Wheel 50 ft with 2 turns (QC): 3 Wheel 150 ft (QC): 4 Stair Training 1 Step (curb) (QC): 88 (approached step but pt unable to safely attempt.) 4 Steps (QC): 88 12 Steps (QC): 88 Balance Picking up an Object (QC): 88 ADL-Treatment Eating (QC): 5 (Based on clincial judgement, pt would require set up assistance with task.) Oral Hygiene (QC): 4 (SBA, assistance needed to place toothpaste on toothbrush and cues to throughouly brush and rinse) Bathing Location: L Arm, R Arm, Chest, Abdomen, Perineal Area Shower/Bathe Self (QC): 1 (Assist x2 in stand to wash buttocks, pt able ot wash UEs, chest/abdomen, and periarea in sitting. Assist with BLEs for thoroughness) Upper Body Dressing (QC): 5 (set up ) Lower Body Dressing (QC): 1 (Pt able to thread legs through pants. Assistance x2 to perform pants hike while standing. pt needed assistance to thread brief on) On/Off Footwear (QC): 1 (assistance needed for all parts) Toileting Hygiene (QC): 1 (Pt stood at FWW to use urinal, OT assisted with managing clothing, and placing urinal.) Toilet Transfer (QC): 1 Assessment/Plan Assessment and Plan Assess & Plan/Chief Complaint Assessment: s/p acute ischemic stroke Bilateral carotid stenosis has f/u [address] Sanders CTA revealed bilateral carotid stenosis >70%, chronically occluded right vertebral artery, left vertebral artery stenosis >70% Vertebral artery stenosis/occlusion Impaired vision in both eyes Dementia 03/06 SLUMS HTN HLD DVT prophylaxis: Lovenox Chronic debility and non-ambulatory for 2 years per Atrial flutter noted on Tely 03/30/20 at 160 HR briefly so starte don OAC 03/31/20 Left foot pain cellulitis vs. gout? Keflex and Solumedrol initiated 04/03/20 Plan: IRF protocol Wheelchair bound at home Statin Monitor closely 03/29/20: Able to ambulate a lot more today Feels good about progress ST to help with swallowing 03/30/20: Advanced diet Incontinence care Vision issues 03/31/20: Added OAC to Plavix for atrial flutter run on Tely last night and reviewed by Dr Barajas Confusion monitoring 04/01/20: Podiatry appreciated Monitor BP OAC and Plavix required 04/02/20: Monitor confusion Continue aggressive therapy OAC and Plavix 04/03/20: Left foot gout versus cellulitis 04/03/20 Monitor closely 1 dose of steroids should not place him at risk for bleeding 04/04/20: Monitor left foot Monitor BP 04/05/20: Improved left foot pain Monitor for falls 04/06/20: ST to hopefully increase to thin liquids Wednesday Monitor left foot 04/07/20: Monitor closely Hydrocodone Check labs in am 04/08/20: Labs stable Monitor isolated low grade fever Continue treatment 04/09/20: Participation monitoring Monitor pain (1) 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 Status: Acute (2) Carotid stenosis, bilateral Status: Acute (3) Right homonymous hemianopsia due to recent cerebral infarction Status: Acute (4) Vertebral artery stenosis/occlusion Status: Acute (5) Impaired vision in both eyes Status: Acute (6) HLD (hyperlipidemia) Status: Acute (7) HTN (hypertension) Status: Acute PARKS,AYALA DO Apr 09, 2020 09:11
--- NOTE | 2020-04-09 09:12 | Cardiology Progress Note ---
Subjective Date Seen by Provider: Apr 09, 2020 Time Seen by Provider: 09:10 Subjective/Events-last exam Patient asleep in bed, easily awakens to answer questions, denies any chest pain Objective-Cardiology Exam Last Set of Vital Signs Vital Signs 04/09/20 04/09/20 05:41 08:41 Temp 37.2 Pulse 75 Resp 18 B/P (MAP) 123/59 (80) Pulse Ox 92 O2 Delivery Room Air Capillary Refill : I&O Intake and Output 04/09/20 00:00 Intake Total 790 ml Balance 790 ml Intake Oral 790 ml # Voids 3 # Urine Diapers 3 General: Alert, Cooperative, Other (sleeping during my evaluation) HEENT: Atraumatic Neck: Supple, No JVD, No Thyromegaly Lungs: Clear to Auscultation, Normal Air Movement Heart: Regular Rate, Normal S1, Normal S2, No Murmurs Abdomen: Normal Bowel Sounds, Soft, No Tenderness, No Hepatosplenomegaly, No Masses Extremities: No Clubbing, No Cyanosis, No Edema, Normal Pulses, No Tenderne ss/Swelling Skin: No Rashes, No Breakdown, No Significant Lesion Psych/Mental Status: Mental Status NL, Mood NL A/P-Cardiology Admission Diagnosis CVA Carotid artery stenosis Paroxysmal atrial flutter HTN Assessment/Plan CVA, Neurologic deficits consisting of confusion, dyphasia, and R-sided vision loss: CVA (acute infarction involving most of the left posterior cerebral artery distribution) vs mass effect (hypodensities along the temporal lobe more in the white matter, worrisome for an underlying mass per CT and MRI of the head on 03-25-20 and 03-26-20, respectively) Carotid artery stenosis, CTA of 03-26-20: 70% stenosis of the right internal carotid artery. There is a 70 to 80% stenosis of the left internal carotid artery. 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 The left vertebral artery has approximately 70% stenosis at its origin and is fairly prominent vessel throughout the remainder of its course. Per Dr. Sanders's recommendations, continue on Plavix and f/u in 6 weeks as outpatient. Brief atrial flutter with 2:1 AV conduction on 03/30/20 (lasting only a few seconds), started on Eliquis. Continue to monitor. Echo of 03/26/20: LVEF 60-65%, grade 1 diastolic dysfunction, mild to mod enlargement of LA, PASP 25 - 30 mmHg Hypertension, was borderline hypotensive, norvasc discontinued, continue to monitor. Hyperlipidemia, maintained on Lipitor Depresssion, started on Zoloft Patient was seen and evaluated with Macy, examination performed, management plan was discussed, agree with the current scribed note, I made few changes to the note using Italic font Started on Zoloft on April 08, 2020 Continue on current medication monitor, continue PT/OT MACY OSBORNE Apr 09, 2020 09:12 BERNICE MONTERO MD Apr 09, 2020 13:02
[2020-04-09] MEDS: MICONAZOLE 2% POWDER (DESENEX AF) 90 GM TOP SCH ×2 (09:23→20:55)
[2020-04-09] MEDS: ZINC OXIDE 16% OINT (BUTT PASTE) 57 GM TUBE TOP SCH ×2 (09:23→20:55)
--- NOTE | 2020-04-09 09:41 | Physical Therapy Daily Note ---
PT Daily Note-Current Subjective Patient in bed pre tx, agrees to PT reluctantly after encouragement, patient states he wants to stay in bed, no complaints of pain at rest, will be co- treating with OT due to poor patient mobility, strength, endurance, coordinate UE and LE during activity, safety and reduce risk of falls. Appearance Patient in bed post tx with nurse call, phone, tray, all needs met. Mental Status Patient Orientation: Person, Confused Transfers SCALE: Activities may be completed with or without assistive devices. 7-Zfbxjaxhpm-lusqdqu completes the activity by him/herself with no assistance from a helper. 5-Set-up or Clean-up Assistance-helper sets up or cleans up; patient completes activity. [place] assists only prior to or following the activity. 4-Supervision or Touching Assistance-helper provides verbal cues and/or touching/steadying and/or contact guard assistance as patient completes activity. Assistance may be provided throughout the activity or intermittently. 3-Partial/Moderate Assistance-helper does LESS THAN HALF the effort. [place] lifts, holds or supports trunk or limbs, but provides less than half the effort. 2-Substantial/Maximal Assistance-helper does MORE THAN HALF the effort. [place] lifts or holds trunk or limbs and provides more than half the effort. 0-Bsiqkjcvl-rfinlt does ALL the effort. Patient does none of the effort to complete the activity. Or, the assistance of 2 or more helpers is required for the patient to complete the activity. If activity was not attempted, code reason: 7-Patient Refused. 9-Not Applicable-not attempted and the patient did not perform the activity before the current illness, exacerbation or injury. 10-Not Attempted due to Environmental Limitations-(lack of equipment, weather restraints, etc.). 88-Not Attempted due to Medical Conditions or Safety Concerns. Roll Left & Right (QC): 4 Sit to Lying (QC): 4 Lying to Sitting/Side of Bed(Q: 3 Sit to Stand (QC): 3 Chair/Trl-mn-Dzjkm Xfer(QC): 3 Patient needs help guiding the walker during transfers and ambulation. Patient sits on the side of the bed with min assist, stands with min assist and ambulates into the restroom with min assist about 10', he has had a BM in his brief, gets into position in front of shower bench, his brief is taken down and his bottom cleaned by OT, he sits for shower. Patient has to stand a couple of times for dressing and cleaning. Afterward patient is dressed and ambulates a few feet outside of his doorway, he is instructed to ambulate into the hallway but he refuses. Patient heads toward the bed and cannot be redirected. He refused to participate any further even with education about the benefits of therapy. Patient just states "not right now, I have to lay down". He will not do anything else. Patient lays day himself and he is positioned in bed. Treatments PT performed bed mobility and transfers, ambulation, standing and positioning during shower and dressing, OT performed shower and dressing, assist with UE positioning and safety during activity. Assessment Current Status: Poor Progress poor participation PT Short Term Goals Short Term Goals Time Frame: Apr 11, 2020 Roll Left & Right: 5 Sit to lyin Lying to sitting on side of be: 5 Sit to stand: 4 Chair/kmw-zz-xobma transfer: 4 Walk 10 feet: 4 Walk 50 feet with two turns: 3 PT Control System Manager Goals Control System Manager Goals PT Half-Way Goals Time Frame: Apr 25, 2020 Roll Left & Right (QC): 6 Sit to Lying (QC): 6 Lying-Sitting on Side/Bed(QC): 6 Sit to Stand (QC): 6 Chair/Gvi-be-Roetk Xfer(QC): 6 Toilet Transfer (QC): 6 Car Transfer (QC): 4 Does the Patient Walk: Yes Walk 10 feet (QC): 4 Walk 50ft with 2 Turns (QC): 4 Walk 150 ft (QC): 9 Walking 10ft on Uneven Surface: 3 1 Step (curb) (QC): 3 4 Steps (QC): 9 12 Steps (QC): 9 Picking up an Object (QC): 9 Does the Pt use WC or Scooter?: Yes Wheel 50 feet with 2 turns (QC: 6 Type: Manual Wheel 150 feet: 6 Type: Manual PT Plan Problem List Problem List: Activity Tolerance, Functional Strength, Safety, Balance, Gait, Transfer, Bed Mobility, ROM Treatment/Plan Treatment Plan: Continue Plan of Care Treatment Plan: Bed Mobility, Education, Functional Activity Kera, Functional Strength, Group Therapy, Gait, Safety, Therapeutic Exercise, Transfers Treatment Duration: Apr 25, 2020 Frequency: At least 5 of 7 days/Wk (IRF) Estimated Hrs Per Day: 1.5 hours per day Patient and/or Family Agrees t: Yes Safety Risks/Education Patient Education: Gait Training, Transfer Techniques, Correct Positioning, Safety Issues Teaching Recipient: Patient Teaching Methods: Demonstration, Discussion Response to Teaching: Reinforcement Needed Time/GCodes Time In: 0900 Time Out: 934 Total Billed Treatment Time: 35 Total Billed Treatment 1 visit FA 35' IVÁN DUKE PT Apr 09, 2020 09:41
--- NOTE | 2020-04-09 09:52 | Occupational Ther Daily Note ---
OT Current Status-Daily Note Subjective Pt reported no pain during shower. Pt states that he does not want to do anything and lays back in bed after attempting to ambulate out of the shower, refusing to participate any further. OT reassures of benefits of therapy and the need, but pt is persistent about laying in bed and refuses any therapy. Mental Status/Objective Patient Orientation: Confused ADL-Treatment Therapy Code Descriptions/Definitions Functional [place] Measure: 0=Not Assessed/NA 4=Minimal Assistance 1=Total Assistance 5=Supervision or Setup 2=Maximal Assistance 6=Modified [place] 3=Moderate Assistance 7=Complete IndependenceSCALE: Activities may be completed with or without assistive devices. 6-Dkpugxyars-kdxvrex completes the activity by him/herself with no assistance from a helper. 5-Set-up or Clean-up Assistance-helper sets up or cleans up; patient completes activity. [place] assists only prior to or following the activity. 4-Supervision or Touching Assistance-helper provides verbal cues and/or touching/steadying and/or contact guard assistance as patient completes activity. Assistance may be provided throughout the activity or intermittently. 3-Partial/Moderate Assistance-helper does LESS THAN HALF the effort. [place] lifts, holds or supports trunk or limbs, but provides less than half the effort. 2-Substantial/Maximal Assistance-helper does MORE THAN HALF the effort. [place] lifts or holds trunk or limbs and provides more than half the effort. 0-Vxyzckwct-ymrhtt does ALL the effort. Patient does none of the effort to complete the activity. Or, the assistance of 2 or more helpers is required for the patient to complete the activity. If activity was not attempted, code reason: 7-Patient Refused. 9-Not Applicable-not attempted and the patient did not perform the activity before the current illness, exacerbation or injury. 10-Not Attempted due to Environmental Limitations-(lack of equipment, weather restraints, etc.). 88-Not Attempted due to Medical Conditions or Safety Concerns. Bathing Location: L Arm, R Arm, L Upper Leg, R Upper Leg, Chest, Abdomen, Perineal Area Shower/Bathe Self (QC): 1 (Assistance needed cues to wash body parts thoroughly and cues to continue to next body part. Assistance x2 to wash buttocks. Moderate verbal cues for safety throughout.) Upper Body Dressing (QC): 3 (Trudi, pt able to thread arms and head through shirt, but assistance to adjust down trunk) Lower Body Dressing (QC): 1 (Assistance needed to thread legs through brief/pants, but pt able to pull pants above knees. Assist x2 to perform pants hike while standing) On/Off Footwear: 1 (Assist for all components) Other Treatment PT/OT cotreat due to skill of 2 clinicians required which a rehabilitation caseworker could not perofmr in order to cooridnate UE/LEs with tasks, and due to pt's limitations in mobility, endurance, strength, R side neglect. OT focused on ADLS, UE placement, and cues for sequencing and safety, PT focused on LE placement, gross overall movements, and mobility/transfers. Pt began tx supine in bed and initally agreeable to shower. Pt transferred to EOB, then asks what he is doing. When OT explained he was going to shower, pt replied "I don't want to shower". With encouragement, pt ambulated to shower room with FWW. In shower, pt instructed to stay standing to doff brief, but pt insistently sits on shower bench. Pt stood again to doff brief and OT performed hygiene and wash buttocks. Pt sat and participated in shower and dressing. Pt stood to perform pants hike and began to ambulate out of shower with FWW. Once out of the bathroom, pt refused to go any further and reached for bed. OT attempted to reassure of benefits of therapy and the need to do therapy, instructing pt to keep walking. Pt refused, and insistent on returning to bed, pushing against therapist. Pt refused any therapy and scooted self supine in bed. Pt supine in bed, bed alarm on and all needs met. Call light in reach. Education OT Patient Education: Correct positioning, Energy conservation, Modified ADL techniques, Progress toward Goal/Update tx plan, Purpose of tx/functional activities, Reviewed precautions, Safety issues, Transfer techniques Teaching Recipient: Patient Teaching Methods: Discussion Response to Teaching: Unable to Comprehend, Reinforcement Needed OT Short Term Goals Short Term Goals Time Frame: Apr 19, 2020 Oral hygiene: 5 Toileting hygiene: 3 Shower/bathe self: 3 Upper body dressin Lower body dressin OT Solar Photovoltaic Designer Goals Solar Photovoltaic Designer Goals Time Frame: Apr 26, 2020 Eating (QC): 6 Oral Hygiene (QC): 6 Toileting Hygiene (QC): 6 Shower/Bathe Self (QC): 4 Upper Body Dressing (QC): 5 Lower Body Dressing (QC): 5 On/Off Footwear (QC): 5 Additional Goals: 1-Demonstrate ADL Tasks, 2-Verbalize Understanding, 3- ImproveStrength/Kera 1=Demonstrate adherence to instructed precautions during ADL tasks. 2=Patient will verbalize/demonstrate understanding of assistive devices/modifications for ADL. 3=Patient will improve strength/tolerance for activity to enable patient to perform ADL's. OT Education/Plan Problem List/Assessment Assessment: Decreased Activ Tolerance, Decreased Safety Aware, Decreased UE Strength, Impaired Cognition, Impaired Funct Balance, Impaired I ADL's, Impaired Self-Care Skills, Visual-Perceptual Deficit Discharge Recommendations Plan/Recommendations: Continue POC Treatment Plan/Plan of Care Patient would benefit from OT for education, treatment and training to promote independence in ADL's, mobility, safety and/or upper extremity function for ADL's. Plan of Care: ADL Retraining, Functional Mobility, Group Exercise/Act as Ind, UE Funct Exercise/Act, UE Neuromus Re-Ed/Coord, Visual/Perceptual Retrain, W/C Management Training Treatment Duration: Apr 26, 2020 Frequency: At least 5 of 7 days/Wk (IRF) Estimated Hrs Per Day: 1.5 hours per day Agreement: Yes Rehab Potential: Fair Time/GCodes Start Time: 09:00 Stop Time: 09:35 Total Time Billed (hr/min): 35 Billed Treatment Time 1, ADL 2 (35) LUCILLE PACE OT Apr 09, 2020 09:52
--- NOTE | 2020-04-09 10:52 | Speech Therapy Progress Note ---
Therapy Progress Note Patient was sound asleep and would not alert to verbal and/or tactile cues. Patient has refused other therapy this date as well. will follow up tomorrow. HOLDEN CHAND Apr 09, 2020 10:51
--- NOTE | 2020-04-09 11:32 | Occupational Ther Daily Note ---
OT Current Status-Daily Note Subjective Pt initially agreeable to tx, but did not want to do anything else. Pt stated "I don't feel right" and when asked for the location, pt unable to give answer. OT asked if it was belly, head, or overall and pt agreed to being overall. Nursing notified Mental Status/Objective Patient Orientation: Confused ADL-Treatment Therapy Code Descriptions/Definitions Functional [place] Measure: 0=Not Assessed/NA 4=Minimal Assistance 1=Total Assistance 5=Supervision or Setup 2=Maximal Assistance 6=Modified [place] 3=Moderate Assistance 7=Complete IndependenceSCALE: Activities may be completed with or without assistive devices. 1-Wflvnpacch-pzvdptd completes the activity by him/herself with no assistance from a helper. 5-Set-up or Clean-up Assistance-helper sets up or cleans up; patient completes activity. [place] assists only prior to or following the activity. 4-Supervision or Touching Assistance-helper provides verbal cues and/or touching/steadying and/or contact guard assistance as patient completes activity. Assistance may be provided throughout the activity or intermittently. 3-Partial/Moderate Assistance-helper does LESS THAN HALF the effort. [place] lifts, holds or supports trunk or limbs, but provides less than half the effort. 2-Substantial/Maximal Assistance-helper does MORE THAN HALF the effort. [place] lifts or holds trunk or limbs and provides more than half the effort. 1-Eipxybduy-odymcx does ALL the effort. Patient does none of the effort to complete the activity. Or, the assistance of 2 or more helpers is required for the patient to complete the activity. If activity was not attempted, code reason: 7-Patient Refused. 9-Not Applicable-not attempted and the patient did not perform the activity before the current illness, exacerbation or injury. 10-Not Attempted due to Environmental Limitations-(lack of equipment, weather restraints, etc.). 88-Not Attempted due to Medical Conditions or Safety Concerns. Oral Hygiene (QC): 4 (SBA, pt able to brush gums, but needed cues to brush thoroughly and cues to sequence through task) Other Treatment Pt began tx supine in bed. pt agreeable to teeth brushing and combing hair, but when instructed to sit on EOB, pt refused. OT reassured the need to sit up and brush teeth and pt agreed to EOB ADL. Pt brushed gums with oral sponge with cues to sequence through tasks. When instructed to find comb on table, pt was unable to until OT pointed comb out. Pt combed hair and stated that he was not feeling right and feeling nauseous. Rest break was given while sitting on EOB. Pt stated that he wanted to lay back down and refused any of therapy. OT educated pt on benefits of therapy and the need to stay up. pt refused therapy and proceed to lay supine in bed. Pt supine in bed, post tx, with call light in reach, bed alarm on, and all needs met. Education OT Patient Education: Correct positioning, Modified ADL techniques, Progress toward Goal/Update tx plan, Purpose of tx/functional activities, Safety issues Teaching Recipient: Patient Teaching Methods: Discussion Response to Teaching: Reinforcement Needed OT Short Term Goals Short Term Goals Time Frame: Apr 19, 2020 Oral hygiene: 5 Toileting hygiene: 3 Shower/bathe self: 3 Upper body dressin Lower body dressin OT Mcfp Goals Physician Recruiter Goals Time Frame: Apr 26, 2020 Eating (QC): 6 Oral Hygiene (QC): 6 Toileting Hygiene (QC): 6 Shower/Bathe Self (QC): 4 Upper Body Dressing (QC): 5 Lower Body Dressing (QC): 5 On/Off Footwear (QC): 5 Additional Goals: 1-Demonstrate ADL Tasks, 2-Verbalize Understanding, 3- ImproveStrength/Kera 1=Demonstrate adherence to instructed precautions during ADL tasks. 2=Patient will verbalize/demonstrate understanding of assistive devices/modif ications for ADL. 3=Patient will improve strength/tolerance for activity to enable patient to perform ADL's. OT Education/Plan Problem List/Assessment Assessment: Decreased Activ Tolerance, Decreased UE Strength, Impaired Cognition, Impaired Funct Balance, Impaired I ADL's, Impaired Self-Care Skills, Visual-Perceptual Deficit Discharge Recommendations Plan/Recommendations: Continue POC Treatment Plan/Plan of Care Patient would benefit from OT for education, treatment and training to promote independence in ADL's, mobility, safety and/or upper extremity function for ADL's. Plan of Care: ADL Retraining, Functional Mobility, Group Exercise/Act as Ind, UE Funct Exercise/Act, UE Neuromus Re-Ed/Coord, Visual/Perceptual Retrain, W/C Management Training Treatment Duration: Apr 26, 2020 Frequency: At least 5 of 7 days/Wk (IRF) Estimated Hrs Per Day: 1.5 hours per day Agreement: Yes Rehab Potential: Poor Time/GCodes Start Time: 11:10 Stop Time: 11:22 Total Time Billed (hr/min): 12 Billed Treatment Time 1, ADL (12) LUCILLE PACE OT Apr 09, 2020 11:32
--- NOTE | 2020-04-09 13:08 | Physical Therapy Progress Note ---
Therapy Progress Note Patient refused therapy this afternoon. Patient is in bed, he does wake up but refuses to participate in therapy. Patient states he just wants to rest. Patient is educated on the benefits of doing therapy but he continues to refuse. Patient has lunch in his room and refuses to get out of bed into the recliner or even lay on his back and raise the head of the bed so he can eat. Will check back tomorrow. IVÁN DUKE PT Apr 09, 2020 13:07
--- NOTE | 2020-04-09 14:09 | Occ Therapy Progress Note ---
Therapy Progress Note Pt refused therapy this afternoon, he was laying in bed sleeping. Easily awoken but refuses to participate in therapy as he just wants to rest. OT educated pt on the purpose and benefit of OT, but he continues to refuse. Pt's lunch tray on his tray table, refuses to eat, and refuses to get out of bed/to recliner. He also refuses laying on his back and raising HOB so he can eat. OT will attempt again tomorrow as pt has refused multiple times today, see previous OT notes. 1, refusal 1300 LUCILLE PACE OT Apr 09, 2020 14:09
[2020-04-09 16:00] VITALS: BP 121/57
[2020-04-09] MEDS: MELATONIN 3 MG TABLET PO PRN (20:56)
[2020-04-09] MEDS: SERTRALINE 50 MG (ZOLOFT) TABLET PO SCH (20:58)
[2020-04-10 05:57] VITALS: BP 133/62
[2020-04-10] MEDS: KCL 20 MEQ TAB (K-DUR) PO SCH (06:43)
--- NOTE | 2020-04-10 08:20 | PM&R Progress Note ---
Subjective HPI/CC On Admission Date Seen by Provider: Apr 10, 2020 Time Seen by Provider: 08:30 Subjective/Events-last exam 04/10/20: Decreasing participation so discharge planning for later this week Family education for daughter tomorrow and may need to go to skilled Not cooperating Denies any changes in his symptoms 04/09/20: Patient refusing to participate with therapy most of the time now Loose stools noted Isolated low grade fever once day O x 2 Family can help him at DC Goal is to go home and with 04/08/20: is at the bedside Hemoglobin 13.8 Potassium 2.9 started supplement Slight temperature of 37.9 Re-evaluating his swallowing Monitoring closely 04/07/20: Loose BM Sore feet Will add Hydrocodone Confusion noted 04/06/20: Left foot pain improved DC IV since it has remained in place for several days Improved transfers Not drinking much due to thickened liquids 04/05/20: Left foot pain improved No issues otherwise Walking pretty well 04/04/20: No change in the left foot pain but it does appear to be less erythema Keflex maintained and S/P steroid injection yesterday 04/03/20: Left foot continues to be an issue Slightly red so I did start him on Keflex 500 QID I did speak with Dr. Goodwin who recommended one dose of steroid to see if we can decrease the inflammation for any type of gout problem No other issues reported 04/02/20: Uric acid was elevated at 8.[address] Goodwin who ordered the test Toenail care provided Plavix and oral anticoagulants tolerated well Walked in to see him and he had taken his pants long term down his legs Depends diaper intact 04/01/20: Pt really cant walk very well today Dr. Goodwin will be in for toenail care Reports foot pain but it varies whether he reports it hurts or it doesnt Incontinence now Very confused Eliquis started along with his Plavix 03/31/20: More confused today Dr Barajas evaluated a run of atrial flutter of 160 last night for a brief moment so added Eliquis and maintained on Plavix for carotid stenosis Difficulty transferring Podiatry consult tomorrow 03/30/20: Up in chair today Incontinent now Dysphagia 2 diet tolerated Did not eat lunch Sleepy Vision changes are profound 03/29/20: Patient seems to be progressing very well Able to walk farther today Seems more alert and less confused today Outperforming with therapy today No pain reported ST working with him for swallowing and cognition Checked meds and labs Review of Systems General: Fatigue, Malaise Musculoskeletal: foot pain Neurological: Weakness, Incoordination, Confusion Objective Exam Vital Signs Vital Signs Date Time Temp Pulse Resp B/P (MAP) Pulse Ox O2 Delivery O2 Flow Rate FiO2 04/10/20 16:21 36.6 64 20 103/58 (73) 91 Room Air Capillary Refill : General Appearance: No Apparent Distress, WD/WN, Chronically ill HEENT: PERRL/EOMI, TMs Normal, Normal ENT Inspection, Pharynx Normal Neck: Full Range of Motion, Normal Inspection, Non Tender, Supple, Carotid Bruit Respiratory: Chest Non Tender, Lungs Clear, Normal Breath Sounds, No Accessory Muscle Use, No Respiratory Distress Cardiovascular: Regular Rate, Rhythm, No Edema, No Gallop, No JVD, No Murmur, Normal Peripheral Pulses Gastrointestinal: Normal Bowel Sounds, No Organomegaly, No Pulsatile Mass, Non Tender, Soft Back: Normal Inspection, No CVA Tenderness, No Vertebral Tenderness Extremity: Normal Capillary Refill, Normal Inspection, Normal Range of Motion, Non Tender, No Calf Tenderness, No Pedal Edema Neurologic/Psychiatric: Alert, Normal Mood/Affect, Abnormal turner machine II-XII, Abno rmal Gait, Disoriented, Motor Weakness (generalized weakness 3/5 arms 2/5 legs but right sided neglect noted) Skin: Normal Color, Warm/Dry Lymphatic: No Adenopathy Results/Procedures Lab Patient resulted labs reviewed. FIM Transfers Therapy Code Descriptions/Definitions Functional [place] Measure: 0=Not Assessed/NA 4=Minimal Assistance 1=Total Assistance 5=Supervision or Setup 2=Maximal Assistance 6=Modified [place] 3=Moderate Assistance 7=Complete IndependenceSCALE: Activities may be completed with or without assistive devices. 3-Hcrledidyw-dhilovq completes the activity by him/herself with no assistance from a helper. 5-Set-up or Clean-up Assistance-helper sets up or cleans up; patient completes activity. [place] assists only prior to or following the activity. 4-Supervision or Touching Assistance-helper provides verbal cues and/or touching/steadying and/or contact guard assistance as patient completes activity. Assistance may be provided throughout the activity or intermittently. 3-Partial/Moderate Assistance-helper does LESS THAN HALF the effort. [place] lifts, holds or supports trunk or limbs, but provides less than half the effort. 2-Substantial/Maximal Assistance-helper does MORE THAN HALF the effort. [place] lifts or holds trunk or limbs and provides more than half the effort. 2-Rkrlgyaup-xjzlkp does ALL the effort. Patient does none of the effort to complete the activity. Or, the assistance of 2 or more helpers is required for the patient to complete the activity. If activity was not attempted, code reason: 7-Patient Refused. 9-Not Applicable-not attempted and the patient did not perform the activity before the current illness, exacerbation or injury. 10-Not Attempted due to Environmental Limitations-(lack of equipment, weather restraints, etc.). 88-Not Attempted due to Medical Conditions or Safety Concerns. Roll Left to Right (QC): 4 Sit to Lying (QC): 4 Sit to Stand (QC): 3 Chair/Ncg-gd-Rfqqb Xfer(QC): 3 Car Transfer (QC): 3 (verbal and tactile cues required. ) Gait Training Distance: 10' Walk 10 feet (QC): 4 Walk 50 ft with 2 Turns(QC): 4 Walk 150 ft (QC): 88 Walking 10ft/uneven surface-QC: 3 Gait Persons Needed: 1 Gait Assistive Device: FWW Wheelchair Training Wheel 50 ft with 2 turns (QC): 3 Wheel 150 ft (QC): 4 Stair Training 1 Step (curb) (QC): 88 (approached step but pt unable to safely attempt.) 4 Steps (QC): 88 12 Steps (QC): 88 Balance Picking up an Object (QC): 88 ADL-Treatment Eating (QC): 5 (Based on clincial judgement, pt would require set up assistance with task.) Oral Hygiene (QC): 4 (SBA, pt able to brush gums, but needed cues to brush thoroughly and cues to sequence through task) Bathing Location: L Arm, R Arm, L Upper Leg, R Upper Leg, Chest, Abdomen, Perineal Area Shower/Bathe Self (QC): 1 (Assistance needed cues to wash body parts thoroughly and cues to continue to next body part. Assistance x2 to wash buttocks. Moderate verbal cues for safety throughout.) Upper Body Dressing (QC): 3 (Trudi, pt able to thread arms and head through shirt, but assistance to adjust down trunk) Lower Body Dressing (QC): 1 (Assistance needed to thread legs through brief/pants, but pt able to pull pants above knees. Assist x2 to perform pants hike while standing) On/Off Footwear (QC): 1 (Assist for all components) Toileting Hygiene (QC): 1 (Pt stood at FWW to use urinal, OT assisted with managing clothing, and placing urinal.) Toilet Transfer (QC): 1 Assessment/Plan Assessment and Plan Assess & Plan/Chief Complaint Assessment: s/p acute ischemic stroke Bilateral carotid stenosis has f/u [address] Sanders CTA revealed bilateral carotid stenosis >70%, chronically occluded right vertebral artery, left vertebr al artery stenosis >70% Vertebral artery stenosis/occlusion Impaired vision in both eyes Dementia 03/06 SLUMS HTN HLD DVT prophylaxis: Lovenox Chronic debility and non-ambulatory for 2 years per Atrial flutter noted on Tely 03/30/20 at 160 HR briefly so starte don OAC 03/31/20 Left foot pain cellulitis vs. gout? Keflex and Solumedrol initiated 04/03/20 Plan: IRF protocol Wheelchair bound at home Statin Monitor closely 03/29/20: Able to ambulate a lot more today Feels good about progress ST to help with swallowing 03/30/20: Advanced diet Incontinence care Vision issues 03/31/20: Added OAC to Plavix for atrial flutter run on Tely last night and reviewed by Dr Barajas Confusion monitoring 04/01/20: Podiatry appreciated Monitor BP OAC and Plavix required 04/02/20: Monitor confusion Continue aggressive therapy OAC and Plavix 04/03/20: Left foot gout versus cellulitis 04/03/20 Monitor closely 1 dose of steroids should not place him at risk for bleeding 04/04/20: Monitor left foot Monitor BP 04/05/20: Improved left foot pain Monitor for falls 04/06/20: ST to hopefully increase to thin liquids Wednesday Monitor left foot 04/07/20: Monitor closely Hydrocodone Check labs in am 04/08/20: Labs stable Monitor isolated low grade fever Continue treatment 04/09/20: Participation monitoring Monitor pain 04/10/20: Family training May need skilled care (1) 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 Status: Acute (2) Carotid stenosis, bilateral Status: Acute (3) Right homonymous hemianopsia due to recent cerebral infarction Status: Acute (4) Vertebral artery stenosis/occlusion Status: Acute (5) Impaired vision in both eyes Status: Acute (6) HLD (hyperlipidemia) Status: Acute (7) HTN (hypertension) Status: Acute AYALA PARKS DO Apr 10, 2020 08:20
[2020-04-10] MEDS: CARVEDILOL 12.5 MG (COREG) TABLET PO SCH ×2 (08:24→20:08)
[2020-04-10] MEDS: DOCUSATE SODIUM 100 MG (COLACE) CAP PO SCH ×2 (08:24→21:27)
[2020-04-10] MEDS: APIXABAN 5 MG (ELIQUIS) TABLET PO SCH ×2 (08:24→20:05)
[2020-04-10] MEDS: CLOPIDOGREL 75 MG (PLAVIX) TABLET PO SCH (08:24)
[2020-04-10] MEDS: polyethylene glycoL POWDER 17 GM (MIRALAX) PACK PO SCH ×2 (08:24→21:27)
[2020-04-10] MEDS: SENNA W/DOCUSATE (SENOKOT S) TABLET PO SCH ×2 (08:25→21:27)
[2020-04-10] MEDS: ZINC OXIDE 16% OINT (BUTT PASTE) 57 GM TUBE TOP SCH ×2 (08:25→20:09)
[2020-04-10] MEDS: SALINE NASAL SPRAY (OCEAN) 45 ML BTL SCH ×4 (08:26→21:34)
[2020-04-10] MEDS: FLUTICASONE NASAL SPRAY (FLONASE) 16 GM BTL NS SCH (08:26)
[2020-04-10] MEDS: MICONAZOLE 2% POWDER (DESENEX AF) 90 GM TOP SCH ×2 (08:27→20:09)
--- NOTE | 2020-04-10 09:10 | Cardiology Progress Note ---
Subjective Date Seen by Provider: Apr 10, 2020 Time Seen by Provider: 09:09 Subjective/Events-last exam Patient is in bed, complaining of fatigue. Denies any chest pain Objective-Cardiology Exam Last Set of Vital Signs Vital Signs 04/10/20 04/10/20 05:57 09:07 Temp 36.8 Pulse 64 Resp 20 B/P (MAP) 133/62 (85) Pulse Ox 90 O2 Delivery Room Air Capillary Refill : I&O Intake and Output 04/09/20 23:59 Intake Total 1520 ml Balance 1520 ml Intake Oral 1520 ml # Voids 2 # Urine Diapers 3 # Bowel Movements 4 General: Alert, Cooperative, Other (sleeping during my evaluation) HEENT: Atraumatic Neck: Supple, No JVD, No Thyromegaly Lungs: Clear to Auscultation, Normal Air Movement Heart: Regular Rate, Normal S1, Normal S2, No Murmurs Abdomen: Normal Bowel Sounds, Soft, No Tenderness, No Hepatosplenomegaly, No Masses Extremities: No Clubbing, No Cyanosis, No Edema, Normal Pulses, No Tenderness/Swelling Skin: No Rashes, No Breakdown, No Significant Lesion Psych/Mental Status: Mental Status NL, Mood NL A/P-Cardiology Admission Diagnosis CVA Carotid artery stenosis Paroxysmal atrial flutter HTN Assessment/Plan CVA, Neurologic deficits consisting of confusion, dyphasia, and R-sided vision loss: CVA (acute infarction involving most of the left posterior cerebral artery distribution) vs mass effect (hypodensities along the temporal lobe more in the white matter, worrisome for an underlying mass per CT and MRI of the head on 03-25-20 and 03-26-20, respectively) Carotid artery stenosis, CTA of 03-26-20: 70% stenosis of the right internal carotid artery. There is a 70 to 80% stenosis of the left internal carotid artery. 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 The left vertebral artery has approximately 70% stenosis at its origin and is fairly prominent vessel throughout the remainder of its course. Per Dr. Sanders's recommendations, continue on Plavix and f/u in 6 weeks as outpatient. Brief atrial flutter with 2:1 AV conduction on 03/30/20 (lasting only a few seconds), started on Eliquis. Continue to monitor. Echo of 03/26/20: LVEF 60-65%, grade 1 diastolic dysfunction, mild to mod enlargement of LA, PASP 25 - 30 mmHg Hypertension, was borderline hypotensive, norvasc discontinued, continue to monitor. Hyperlipidemia, maintained on Lipitor Depresssion, started on Zoloft Patient was seen and evaluated with Macy, examination performed, management plan was discussed, agree with the current scribed note, I made few changes to the note using Italic font Patient is depressed, cold in his that he wanted to Cardiac status is stable I will increase Zoloft to 100 mg daily and evaluate tolerance and response Recommend psychiatry evaluation MACY OSBORNE Apr 10, 2020 9:10 am BERNICE MONTERO MD Apr 10, 2020 3:11 pm
--- NOTE | 2020-04-10 09:35 | NUR ---
CM/SS CONCURRENT DOCUMENTATION Observed patient therapy session yesterday a.m. when patient refused to ambulate and requested to instead be seated in recliner. Reviewed PT and OT co-treat documentation, patient was dependent for assistance to cleanse after incontinence and then refused to continue participation with therapy regime. He later refused participation in the afternoon session. Discussed with spouse this a.m., she stated she spoke with patient last night and he told her he was not going to try to walk again. He remains focused on a "fear of falling" even with two therapists hands on. Professor Of French requested that patient's daughter (and Kimberly if desired) schedule to come in for performance observation and participation to determined whether they will accept responsibility to provide patient's care at home. If this is not the case, Kimberly has identified her preferred community nursing home facility as [facility], either [place] or [place]. Offered /Wednesday of this week for patient's daughter, Mitra Chisholm, to come in. Kimberly will contact her, she will need to coordinate time off work. Await confirmation of date/time.
--- NOTE | 2020-04-10 10:18 | Occupational Ther Daily Note ---
OT Current Status-Daily Note Subjective Pt initially refused therapy and most of the activities, but OT encouraged and explained the benefits of therapy and pt agreed to tx. Max encouragement throughout tx Mental Status/Objective Patient Orientation: Confused ADL-Treatment Therapy Code Descriptions/Definitions Functional [place] Measure: 0=Not Assessed/NA 4=Minimal Assistance 1=Total Assistance 5=Supervision or Setup 2=Maximal Assistance 6=Modified [place] 3=Moderate Assistance 7=Complete IndependenceSCALE: Activities may be completed with or without assistive devices. 8-Lozwgqnzqo-zcavgcu completes the activity by him/herself with no assistance from a helper. 5-Set-up or Clean-up Assistance-helper sets up or cleans up; patient completes activity. [place] assists only prior to or following the activity. 4-Supervision or Touching Assistance-helper provides verbal cues and/or touching/steadying and/or contact guard assistance as patient completes activity. Assistance may be provided throughout the activity or intermittently. 3-Partial/Moderate Assistance-helper does LESS THAN HALF the effort. [place] lifts, holds or supports trunk or limbs, but provides less than half the effort. 2-Substantial/Maximal Assistance-helper does MORE THAN HALF the effort. [place] lifts or holds trunk or limbs and provides more than half the effort. 7-Hvgqkcdyt-rcfhmn does ALL the effort. Patient does none of the effort to complete the activity. Or, the assistance of 2 or more helpers is required for the patient to complete the activity. If activity was not attempted, code reason: 7-Patient Refused. 9-Not Applicable-not attempted and the patient did not perform the activity before the current illness, exacerbation or injury. 10-Not Attempted due to Environmental Limitations-(lack of equipment, weather restraints, etc.). 88-Not Attempted due to Medical Conditions or Safety Concerns. Lower Body Dressing (QC): 1 (assistance for all components and assist x2 to perform pants hike while standing) On/Off Footwear: 1 (Dependent) Toileting Hygiene (QC): 1 (Assist to complete all parts, assist x2) Toilet Transfer (QC): 1 (assist x3, SPT to BSC on R side.) Other Treatment PT/OT cotreat due to skill of 2 clinicians required which a hydrometeorological technician could not perofmr in order to cooridnate UE/LEs with tasks, and due to pt's limitations in mobility, endurance, strength, R side neglect. OT focused on ADLS, UE placement, and cues for sequencing and safety, PT focused on LE placement, gross overall movements, and mobility/transfers. Pt began tx supine in bed and initially refused therapy, but after max encouragement and explanation of benefits, pt agreed to getting out of bed. Pt transferred from supine to EOB sitting and transferred to [facility] with assist x3 due to inability to stand up completely and assistance to manage clothing. OT completed LB dressing and assisted with all parts. Pt completed toileting and transferred to w/c and propelled self around commons area. Pt needed max cues to turn corners and scan for obstacles on B visual berrios. Pt propelled self to therapy gym and stood in parallel bars to participate in activities to increase dynamic standing balance, UE strength, and activity tolerance. Activities of the following, shifting weight on each leg, and raising one hand off parallel bars to weight bare on B sides. In between activities, pt sat in w/c and explained that he wanted to go back to bed, but with max encouragement from OT/PT, pt continued tx. Pt then ambulated through parallel bars once with max encouragement to continue through bars. Pt then sat in w/c and propelled self back to room. Pt insistingly wanted to go back to bed when asked to go to recliner and stay up for lunch. Pt transferred from w/c to EOB then sit to supine. pt in bed, post tx, with call light in reach, bed alarm on and all needs met. OT planned to continue tx as scheduled, but pt refused further tx at this time. OT will attempt again later. Education OT Patient Education: Correct positioning, Modified ADL techniques, Progress toward Goal/Update tx plan, Purpose of tx/functional activities, Rehab process, Safety issues, Transfer techniques, W/C management Teaching Recipient: Patient Teaching Methods: Discussion Response to Teaching: Reinforcement Needed OT Short Term Goals Short Term Goals Time Frame: Apr 19, 2020 Oral hygiene: 5 Toileting hygiene: 3 Shower/bathe self: 3 Upper body dressin Lower body dressin OT Equity Research Analyst Goals Custodial Goals Time Frame: Apr 26, 2020 Eating (QC): 6 Oral Hygiene (QC): 6 Toileting Hygiene (QC): 6 Shower/Bathe Self (QC): 4 Upper Body Dressing (QC): 5 Lower Body Dressing (QC): 5 On/Off Footwear (QC): 5 Additional Goals: 1-Demonstrate ADL Tasks, 2-Verbalize Understanding, 3- ImproveStrength/K[place] 1=Demonstrate adherence to instructed precautions during ADL tasks. 2=Patient will verbalize/demonstrate understanding of assistive devices/modifications for ADL. 3=Patient will improve strength/tolerance for activity to enable patient to perform ADL's. OT Education/Plan Problem List/Assessment Assessment: Decreased Activ Tolerance, Decreased Safety Aware, Decreased UE Strength, Impaired Cognition, Impaired Funct Balance, Impaired I ADL's, Impaired Self-Care Skills, Visual-Perceptual Deficit Discharge Recommendations Plan/Recommendations: Continue POC Treatment Plan/Plan of Care Patient would benefit from OT for education, treatment and training to promote independence in ADL's, mobility, safety and/or upper extremity function for AD L's. Plan of Care: ADL Retraining, Functional Mobility, Group Exercise/Act as Ind, UE Funct Exercise/Act, UE Neuromus Re-Ed/Coord, Visual/Perceptual Retrain, W/C Management Training Treatment Duration: Apr 26, 2020 Frequency: At least 5 of 7 days/Wk (IRF) Estimated Hrs Per Day: 1.5 hours per day Agreement: Yes Rehab Potential: Poor Time/GCodes Start Time: 09:15 Stop Time: 10:15 Total Time Billed (hr/min): 60 Billed Treatment Time cotreat x60 1, ADL 2 (25'), FA 2 (35') LUCILLE PACE OT Apr 10, 2020 10:18
--- NOTE | 2020-04-10 11:29 | Physical Therapy Daily Note ---
PT Daily Note-Current Subjective Pt initially refused therapy and most of the activities, but OT encouraged and explained the benefits of therapy and pt agreed to tx. Max encouragement throughout tx Pain Numeric Pain Scale: 0-No Pain Location: No Pain Reported Mental Status Patient Orientation: Confused Transfers SCALE: Activities may be completed with or without assistive devices. 7-Kzwpvkkeye-ogkmzpy completes the activity by him/herself with no assistance from a helper. 5-Set-up or Clean-up Assistance-helper sets up or cleans up; patient completes activity. [place] assists only prior to or following the activity. 4-Supervision or Touching Assistance-helper provides verbal cues and/or touching/steadying and/or contact guard assistance as patient completes activity. Assistance may be provided throughout the activity or intermittently. 3-Partial/Moderate Assistance-helper does LESS THAN HALF the effort. [place] lifts, holds or supports trunk or limbs, but provides less than half the effort. 2-Substantial/Maximal Assistance-helper does MORE THAN HALF the effort. [place] lifts or holds trunk or limbs and provides more than half the effort. 9-Dmsdzhvpj-aaucxk does ALL the effort. Patient does none of the effort to complete the activity. Or, the assistance of 2 or more helpers is required for the patient to complete the activity. If activity was not attempted, code reason: 7-Patient Refused. 9-Not Applicable-not attempted and the patient did not perform the activity before the current illness, exacerbation or injury. 10-Not Attempted due to Environmental Limitations-(lack of equipment, weather restraints, etc.). 88-Not Attempted due to Medical Conditions or Safety Concerns. Lying to Sitting/Side of Bed(Q: 2 Sit to Stand (QC): 1 Chair/Kcp-pz-Fwcrn Xfer(QC): 1 Toilet Transfer (QC): 1 Gait Training Does the Patient Walk?: Yes Gait Assistive Device: Parallel Bars Ambulate in //bars x1 w/ w/c following behind for safety and JAILER CHIEF in front w/ Trudi Wheelchair Training Does the Pt Use a Wheelchair?: Yes Wheel 50 ft with 2 turns (QC): 3 Wheel 150 ft (QC): 3 Type of Wheelchair: Manual (3) Pt propels self in w/c using BLEs and BUEs. Pt at times needs assistance w/ maneuvering w/c so pt does not run into things. Neuromuscular Worked on static standing in //bars w/ focus on posture. Worked on lateral wt shifting in //bars. JAILER CHIEF CGA during activities and pt requires Max VCs and encouragement to remain participating. Treatments PT/OT cotreat due to skill of 2 clinicians required which a rehabilitation center manager could not perofmr in order to cooridnate UE/LEs with tasks, and due to pt's limitations in mobility, endurance, strength, R side neglect. OT focused on ADLS, UE placement, and cues for sequencing and safety, PT focused on LE placement, gross overall movements, and mobility/transfers. Pt began tx supine in bed and initially refu sed therapy, but after max encouragement and explanation of benefits, pt agreed to getting out of bed. Pt transferred from supine to EOB sitting and transferred [place] [facility] [place]3 due to inability to stand up completely and assistance to manage clothing. OT completed LB dressing and assisted with all parts. Pt completed toileting and transferred to w/c and propelled self around commons area. Pt needed max cues to turn corners and scan for obstacles on B visual berrios. Pt propelled self to therapy gym and stood in parallel bars to participate in activities to increase dynamic standing balance, UE strength, and activity tolerance. Activities of the following, shifting weight on each leg, and raising one hand off parallel bars to weight bare on B sides. In between activities, pt sat in w/c and explained that he wanted to go back to bed, but with max encouragement from OT/PT, pt continued tx. Pt then ambulated through parallel bars once with max encouragement to continue through bars. Pt then sat in w/c and propelled self back to room. Pt insistingly wanted to go back to bed when asked to go to recliner and stay up for lunch. Pt transferred from w/c to EOB then sit to supine. pt in bed, post tx, with call light in reach, bed alarm on and all needs met. OT remains in room to attempt to continue session. PT will return later. Assessment Current Status: Poor Progress Decreased participation, decreased endurance, self limiting, poor transfers, poor BLE strength PT Short Term Goals Short Term Goals Time Frame: Apr 11, 2020 Roll Left & Right: 5 Sit to lyin Lying to sitting on side of be: 5 Sit to stand: 4 Chair/kvr-vu-iwtsi transfer: 4 Walk 10 feet: 4 Walk 50 feet with two turns: 3 PT Back Gray Cloth Washer Goals Back Gray Cloth Washer Goals PT Residential Goals Time Frame: Apr 25, 2020 Roll Left & Right (QC): 6 Sit to Lying (QC): 6 Lying-Sitting on Side/Bed(QC): 6 Sit to Stand (QC): 6 Chair/Myf-qk-Rhgsy Xfer(QC): 6 Toilet Transfer (QC): 6 Car Transfer (QC): 4 Does the Patient Walk: Yes Walk 10 feet (QC): 4 Walk 50ft with 2 Turns (QC): 4 Walk 150 ft (QC): 9 Walking 10ft on Uneven Surface: 3 1 Step (curb) (QC): 3 4 Steps (QC): 9 12 Steps (QC): 9 Picking up an Object (QC): 9 Does the Pt use WC or Scooter?: Yes Wheel 50 feet with 2 turns (QC: 6 Type: Manual Wheel 150 feet: 6 Type: Manual PT Plan Problem List Problem List: Activity Tolerance, Functional Strength, Safety, Balance, Gait, Transfer, Bed Mobility, ROM Treatment/Plan Treatment Plan: Continue Plan of Care Treatment Plan: Bed Mobility, Education, Functional Activity Kera, Functional Strength, Group Therapy, Gait, Safety, Therapeutic Exercise, Transfers Treatment Duration: Apr 25, 2020 Frequency: At least 5 of 7 days/Wk (IRF) Estimated Hrs Per Day: 1.5 hours per day Patient and/or Family Agrees t: Yes Safety Risks/Education Patient Education: Transfer Techniques, Correct Positioning, Safety Issues Teaching Recipient: Patient Teaching Methods: Discussion Response to Teaching: Reinforcement Needed Time/GCodes Time In: 914 Time Out: 1015 Total Billed Treatment Time: 60 Total Billed Treatment PT/OT cotreat due to skill of 2 clinicians required which a rehabilitation center manager could not perofmr in order to cooridnate UE/LEs with tasks, and due to pt's limitations in mobility, endurance, strength, R side neglect. 1, FA (30), NM (15m), [facility] (15m) SISI MASON JAILER CHIEF Apr 10, 2020 11:29
--- NOTE | 2020-04-10 11:36 | Physical Therapy Progress Note ---
Therapy Progress Note Pt refused therapy at this time. Pt encouraged to get out of bed and participate. Pt educated on importance of participating in therapy sessions. Pt adamantly refused again. PT will attempt later this date. 1, Refusal 11:30 SISI MASON TOOL GRINDER Apr 10, 2020 11:36
--- NOTE | 2020-04-10 11:38 | Occ Therapy Progress Note ---
Therapy Progress Note OT tx attempted at this time. Pt laying in bed, stating he would like to rest and it is not a good time. OT educated pt on purpose and benefits of OT, encouraging him to participate in order to reach his goal of returning home, pt still refused tx. OT will attempt again later. 1, refusal 1130 LUCILLE PACE OT Apr 10, 2020 11:38
--- NOTE | 2020-04-10 13:22 | NUR ---
Notified Dr. Goodwin regarding patient's continued complaints of left foot pain and inability to bear weight/ambulate. Dr. Goodwin states he will make rounds to reevaluate patient's foot. RN notified.
--- NOTE | 2020-04-10 13:47 | Physical Therapy Daily Note ---
PT Daily Note-Current Subjective Pt in bed upon arrival. MATTRESS FILLING MACHINE TENDER observes pt lunch on bed side table, untouched. Pt hesitant to get up to recliner, but agrees. Pain Numeric Pain Scale: 0-No Pain Location: No Pain Reported Mental Status Patient Orientation: Confused Transfers SCALE: Activities may be completed with or without assistive devices. 2-Ztthvlhwpy-qurlbgn completes the activity by him/herself with no assistance from a helper. 5-Set-up or Clean-up Assistance-helper sets up or cleans up; patient completes activity. [place] assists only prior to or following the activity. 4-Supervision or Touching Assistance-helper provides verbal cues and/or touching/steadying and/or contact guard assistance as patient completes activity. Assistance may be provided throughout the activity or intermittently. 3-Partial/Moderate Assistance-helper does LESS THAN HALF the effort. [place] lifts, holds or supports trunk or limbs, but provides less than half the effort. 2-Substantial/Maximal Assistance-helper does MORE THAN HALF the effort. [place] lifts or holds trunk or limbs and provides more than half the effort. 4-Ivnlhpttt-jsckou does ALL the effort. Patient does none of the effort to complete the activity. Or, the assistance of 2 or more helpers is required for the patient to complete the activity. If activity was not attempted, code reason: 7-Patient Refused. 9-Not Applicable-not attempted and the patient did not perform the activity before the current illness, exacerbation or injury. 10-Not Attempted due to Environmental Limitations-(lack of equipment, weather restraints, etc.). 88-Not Attempted due to Medical Conditions or Safety Concerns. Lying to Sitting/Side of Bed(Q: 3 Sit to Stand (QC): 3 Chair/Amu-xa-Fjplg Xfer(QC): 3 Toilet Transfer (QC): 3 MATTRESS FILLING MACHINE TENDER notices pt participation in transfers has increased significantly since tx this AM. Treatments Pt completes supine to EOB and MATTRESS FILLING MACHINE TENDER notices pt has soiled self. Pt educated and explained the importance of pushing call light in order to get assistance to use BSC. Pt transfers EOB to BSC w/ ModA x1; pt follows VC's for sequencing during transfer. Pt sit<>stands from toilet w/ ModA x1; RN performs personal hygiene. Pt stand pivots to recliner after personal hygiene performed. Pt educated on importance of eating in order to maintain and gain strength that pt needs to participate in therapy tx. Pt sitting in recliner eating w/ bed side table and call light w/in reach and all needs met at end of tx. Assessment Current Status: Poor Progress Decreased endurance, decreased participation, self limiting, poor transfers, poor BLE strength PT Short Term Goals Short Term Goals Time Frame: Apr 11, 2020 Roll Left & Right: 5 Sit to lyin Lying to sitting on side of be: 5 Sit to stand: 4 Chair/xom-uj-wbwbn transfer: 4 Walk 10 feet: 4 Walk 50 feet with two turns: 3 PT Residential Goals Corn Breeder Goals PT Residential Goals Time Frame: Apr 25, 2020 Roll Left & Right (QC): 6 Sit to Lying (QC): 6 Lying-Sitting on Side/Bed(QC): 6 Sit to Stand (QC): 6 Chair/Bvu-yr-Eebwg Xfer(QC): 6 Toilet Transfer (QC): 6 Car Transfer (QC): 4 Does the Patient Walk: Yes Walk 10 feet (QC): 4 Walk 50ft with 2 Turns (QC): 4 Walk 150 ft (QC): 9 Walking 10ft on Uneven Surface: 3 1 Step (curb) (QC): 3 4 Steps (QC): 9 12 Steps (QC): 9 Picking up an Object (QC): 9 Does the Pt use WC or Scooter?: Yes Wheel 50 feet with 2 turns (QC: 6 Type: Manual Wheel 150 feet: 6 Type: Manual PT Plan Problem List Problem List: Activity Tolerance, Functional Strength, Safety, Balance, Gait, Transfer, Bed Mobility, ROM Treatment/Plan Treatment Plan: Continue Plan of Care Treatment Plan: Bed Mobility, Education, Functional Activity Ekra, Functional Strength, Group Therapy, Gait, Safety, Therapeutic Exercise, Transfers Treatment Duration: Apr 25, 2020 Frequency: At least 5 of 7 days/Wk (IRF) Estimated Hrs Per Day: 1.5 hours per day Patient and/or Family Agrees t: Yes Safety Risks/Education Patient Education: Transfer Techniques, Correct Positioning, Safety Issues Teaching Recipient: Patient Teaching Methods: Discussion Response to Teaching: Reinforcement Needed Time/GCodes Time In: 1315 Time Out: 1330 Total Billed Treatment Time: 15 Total Billed Treatment 1, FA (15m) SISI MASON MATTRESS FILLING MACHINE TENDER Apr 10, 2020 13:47
--- NOTE | 2020-04-10 14:00 | NUR ---
CM/SS PATIENT CARE CONFERENCE Reviewed Summary with spouse Kimberly by phone and then with patient. Plan is that since patient has withdrawn from therapy participation, we will move forward to second family patient performance review regard their proposal for him to return home. Greaser Helper coordinated with Kimberly and her daughter Mitra Pulliam for Wednesday, April 12, at 0900. All pertinent associates notified and communication board updated. Kimberly understands that a decision is expected after this meeting. If they determine they can not meet patient's care needs at home, Kimberly has identified [facility] as her choice facility ([place] or [place]). Updated patient re same, he repeated back for clarification when his family would be coming and then he stated he knows he can do it at home. His therapy refusal and declined motivation is suspected at least in part to be behavioral. Dr. Goodwin was contacted regarding patient's improved but remaining pain in his left foot, physician to round to re-assess for next steps.
--- NOTE | 2020-04-10 14:04 | Occupational Ther Daily Note ---
OT Current Status-Daily Note Subjective Pt stated that it "sucks" being blind. OT reassured pt that everyone is here to help if he needs any such as with his feeding Mental Status/Objective Patient Orientation: Confused ADL-Treatment Therapy Code Descriptions/Definitions Functional Beadle Measure: 0=Not Assessed/NA 4=Minimal Assistance 1=Total Assistance 5=Supervision or Setup 2=Maximal Assistance 6=Modified Beadle 3=Moderate Assistance 7=Complete IndependenceSCALE: Activities may be completed with or without assistive devices. 2-Mrkpyxyyqq-gmizznk completes the activity by him/herself with no assistance from a helper. 5-Set-up or Clean-up Assistance-helper sets up or cleans up; patient completes activity. [place] assists only prior to or following the activity. 4-Supervision or Touching Assistance-helper provides verbal cues and/or touching/steadying and/or contact guard assistance as patient completes activity. Assistance may be provided throughout the activity or intermittently. 3-Partial/Moderate Assistance-helper does LESS THAN HALF the effort. [place] lift s, holds or supports trunk or limbs, but provides less than half the effort. 2-Substantial/Maximal Assistance-helper does MORE THAN HALF the effort. [place] lifts or holds trunk or limbs and provides more than half the effort. 1-Jwpjhrjxz-krbtin does ALL the effort. Patient does none of the effort to complete the activity. Or, the assistance of 2 or more helpers is required for the patient to complete the activity. If activity was not attempted, code reason: 7-Patient Refused. 9-Not Applicable-not attempted and the patient did not perform the activity before the current illness, exacerbation or injury. 10-Not Attempted due to Environmental Limitations-(lack of equipment, weather restraints, etc.). 88-Not Attempted due to Medical Conditions or Safety Concerns. Eating (QC): 3 (Trudi, pt able to feed self but required moderate cues to continue to eat and drink. ) Other Treatment Pt began tx sitting in recliner eating. OT gave cues to attend to plate and try to eat different items on plate. Pt stated that he could not see much of the plate, but he was able to place food on fork and bring to mouth. Pt required moderate cues to continue to eat and also drink. Pt stated that he was full and did not want to eat anymore. Visual attention/scanning activities complete, asking pt what was on his plate, and if he could locate certain items, etc. OT restated the foods/drinks on his plate again for him to continue eating, but pt insisted he was done. OT reclined chair and pt was in recliner, post tx, with chair alarm on and all need met. Education OT Patient Education: Correct positioning, Modified ADL techniques, Progress toward Goal/Update tx plan, Purpose of tx/functional activities, Rehab process, Safety issues Teaching Recipient: Patient Teaching Methods: Discussion Response to Teaching: Unable to Comprehend, Reinforcement Needed OT Short Term Goals Short Term Goals Time Frame: Apr 19, 2020 Oral hygiene: 5 Toileting hygiene: 3 Shower/bathe self: 3 Upper body dressin Lower body dressin OT Nursing Home Goals Nursing Home Goals Time Frame: Apr 26, 2020 Eating (QC): 6 Oral Hygiene (QC): 6 Toileting Hygiene (QC): 6 Shower/Bathe Self (QC): 4 Upper Body Dressing (QC): 5 Lower Body Dressing (QC): 5 On/Off Footwear (QC): 5 Additional Goals: 1-Demonstrate ADL Tasks, 2-Verbalize Understanding, 3- ImproveStrength/Kera 1=Demonstrate adherence to instructed precautions during ADL tasks. 2=Patient will verbalize/demonstrate understanding of assistive devices/modifications for ADL. 3=Patient will improve strength/tolerance for activity to enable patient to perform ADL's. OT Education/Plan Problem List/Assessment Assessment: Decreased Activ Tolerance, Decreased Safety Aware, Decreased UE Strength, Impaired Cognition, Impaired Coordination, Impaired Funct Balance, Impaired I ADL's, Impaired Self-Care Skills, Visual-Perceptual Deficit Discharge Recommendations Plan/Recommendations: Continue POC Treatment Plan/Plan of Care Patient would benefit from OT for education, treatment and training to promote independence in ADL's, mobility, safety and/or upper extremity function for ADL's. Plan of Care: ADL Retraining, Functional Mobility, Group Exercise/Act as Ind, U E Funct Exercise/Act, UE Neuromus Re-Ed/Coord, Visual/Perceptual Retrain, W/C Management Training Treatment Duration: Apr 26, 2020 Frequency: At least 5 of 7 days/Wk (IRF) Estimated Hrs Per Day: 1.5 hours per day Agreement: Yes Rehab Potential: Poor Time/GCodes Start Time: 13:30 Stop Time: 13:45 Total Time Billed (hr/min): 15 Billed Treatment Time 1, ADL (15) LUCILLE PACE OT Apr 10, 2020 14:04
--- NOTE | 2020-04-10 15:09 | Speech Therapy Daily Note ---
Speech Daily Progress Note Subjective Date Seen by Provider: Apr 10, 2020 Time Seen by Provider: 00:30 Patient was sitting up in his chair following his other therapies when I entered his room. Objective Patient demonstrated taking small sips from his cup without lid or straw. Patient did not exhibit s/s of aspiration. Assessment Assessment Current Status: Good Progress Treatment Plan Continue Plan of Care Speech Short Term Goals Short Term Goals Short Term Goals 1) Patient will complete memory tasks related to his daily needs with 80% accuracy given minimal cues. 2) Patient will complete tasks safety awareness to his daily needs with 80% accuracy given minimal cues. 3) Patient will complete problem solving tasks related to his daily needs with 80% accuracy given minimal cues. 4) Patient will tolerate least restrictive diet level without s/s of aspiration at 80% with minimal cues. 5) Patient/caregiver will utilize compensatory strategies as trained at 90% with minimal cues. Speech Senior Care Goals Day Trader Goals Patient will improve cognitive-communication abilities in order to complete daily tasks with decreased assistance. Patient will maintain adequate nutrition/hydration via safe effective swallow function. Speech-Plan Patient/Family Goals Patient/Family Goals: Patient will return to his home with family support. Treatment Plan Speech Therapy Treatment Plan: Continue Plan of Care Treatment Duration: Apr 12, 2020 Frequency: 4 times per week (Patient will receive skilled ST 4-5x per week) Estimated Hrs Per Day: .5 hour per day Rehab Potential: Poor Barriers to Learning: Patient's recent CVA, age, reluctance to participate, prior fall with injury Pt/Family Agrees to Plan: Yes Safety Risks/Education Teaching Recipient: Patient Teaching Methods: Demonstration, Discussion Response to Teaching: Verbalize Understanding, Return Demonstration Education Topics Provided: Safety with oral intake, safety within his room Time Speech Therapy Time In: 14:00 Speech Therapy Time Out: 14:30 Total Billed Time: 30 Billed Treatment Time 1, SLHEATHER, HOLDEN Cruz Apr 10, 2020 15:09
--- NOTE | 2020-04-10 15:40 | NUR ---
Initial visit by Chaplain Torres. No reina affiliation. Local family. Engaged in rapport building. No requests at this time.
[2020-04-10 16:21] VITALS: BP 103/58
[2020-04-10] MEDS: SERTRALINE 50 MG (ZOLOFT) TABLET PO SCH (20:08)
[2020-04-10] MEDS: HYDROcodone/APAP 5 MG/325 MG (LORTAB) TAB PO PRN (20:09)
[2020-04-10] MEDS: SALINE NASAL SPRAY (OCEAN) 45 ML BTL PRN (20:10)
[2020-04-10] MEDS: LOPERAMIDE 2 MG (IMODIUM) TABLET PO PRN (20:12)
[2020-04-11 06:23] VITALS: BP 109/57
[2020-04-11] MEDS: KCL 20 MEQ TAB (K-DUR) PO SCH (06:50)
[2020-04-11 08:00] VITALS: BP 128/61
[2020-04-11] MEDS: CLOPIDOGREL 75 MG (PLAVIX) TABLET PO SCH (08:11)
[2020-04-11] MEDS: APIXABAN 5 MG (ELIQUIS) TABLET PO SCH ×2 (08:11→21:07)
[2020-04-11] MEDS: CARVEDILOL 12.5 MG (COREG) TABLET PO SCH ×2 (08:11→21:07)
[2020-04-11] MEDS: DOCUSATE SODIUM 100 MG (COLACE) CAP PO SCH ×2 (08:11→20:48)
[2020-04-11] MEDS: SALINE NASAL SPRAY (OCEAN) 45 ML BTL SCH ×4 (08:12→21:06)
[2020-04-11] MEDS: FLUTICASONE NASAL SPRAY (FLONASE) 16 GM BTL NS SCH (08:12)
[2020-04-11] MEDS: SENNA W/DOCUSATE (SENOKOT S) TABLET PO SCH ×2 (08:13→20:48)
[2020-04-11] MEDS: polyethylene glycoL POWDER 17 GM (MIRALAX) PACK PO SCH ×2 (08:13→20:48)
[2020-04-11] MEDS: MICONAZOLE 2% POWDER (DESENEX AF) 90 GM TOP SCH ×2 (08:14→21:07)
[2020-04-11] MEDS: ZINC OXIDE 16% OINT (BUTT PASTE) 57 GM TUBE TOP SCH ×2 (08:14→21:07)
[2020-04-11] MEDS: HYDROcodone/APAP 5 MG/325 MG (LORTAB) TAB PO PRN (08:21)
--- NOTE | 2020-04-11 09:00 | NUR ---
EATING POORLY. STATES DOESN'T TASTE GOOD. TOLERATING THIN LIQUIDS WELL.
--- NOTE | 2020-04-11 09:06 | Cardiology Progress Note ---
Subjective Date Seen by Provider: Apr 11, 2020 Time Seen by Provider: 09:05 Subjective/Events-last exam Patient is sitting up in chair, no new complaints. Objective-Cardiology Exam Last Set of Vital Signs Vital Signs 04/11/20 04/11/20 06:23 09:00 Temp 37.2 Pulse 58 Resp 16 B/P (MAP) 109/57 (74) Pulse Ox 92 O2 Delivery Room Air Capillary Refill : I&O Intake and Output 04/11/20 00:00 Intake Total 800 ml Balance 800 ml Intake Oral 800 ml # Urine Diapers 5 # Bowel Movements 2 General: Alert, Cooperative, Other (sleeping during my evaluation) HEENT: Atraumatic Neck: Supple, No JVD, No Thyromegaly Lungs: Clear to Auscultation, Normal Air Movement Heart: Regular Rate, Normal S1, Normal S2, No Murmurs Abdomen: Normal Bowel Sounds, Soft, No Tenderness, No Hepatosplenomegaly, No Masses Extremities: No Clubbing, No Cyanosis, No Edema, Normal Pulses, No Tenderness/Swelling Skin: No Rashes, No Breakdown, No Significant Lesion Psych/Mental Status: Mental Status NL, Mood NL A/P-Cardiology Admission Diagnosis CVA Carotid artery stenosis Paroxysmal atrial flutter HTN Assessment/Plan CVA, Neurologic deficits consisting of confusion, dyphasia, and R-sided vision loss: CVA (acute infarction involving most of the left posterior cerebral artery distribution) vs mass effect (hypodensities along the temporal lobe more in the white matter, worrisome for an underlying mass per CT and MRI of the head on 03-25-20 and 03-26-20, respectively) Carotid artery stenosis, CTA of 03-26-20: 70% stenosis of the right internal carotid artery. There is a 70 to 80% stenosis of the left internal carotid artery. 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 The left vertebral artery has approximately 70% stenosis at its origin and is fairly prominent vessel throughout the remainder of its course. Per Dr. Sanders's recommendations, continue on Plavix and f/u in 6 weeks as outpatient. Brief atrial flutter with 2:1 AV conduction on 03/30/20 (lasting only a few seconds), started on Eliquis. Continue to monitor. Echo of 03/26/20: LVEF 60-65%, grade 1 diastolic dysfunction, mild to mod e nlargement of LA, PASP 25 - 30 mmHg Hypertension, was borderline hypotensive, norvasc discontinued, continue to monitor. Hyperlipidemia, maintained on Lipitor Depresssion, started on Zoloft Patient was seen and evaluated with Macy, examination performed, management plan was discussed, agree with the current scribed note, I made few changes to the note using Italic font Patient was seen at bedside sitting comfortably Still having weakness, appeared to be less depressed today I started him on Zoloft and increase the dose to 100 mg daily, managed by primary care physician MACY OSBORNE Apr 11, 2020 09:06 BERNICE MONTERO MD Apr 11, 2020 15:13
--- NOTE | 2020-04-11 09:37 | Physical Therapy Daily Note ---
PT Daily Note-Current Subjective Patient in recliner pre tx, has unrated pain in left foot, patient has had a BM in the chair and needs cleaned, will assist him to the shower to get cleaned up, will be co-treating with OT due to poor patient mobility, strength, endurance, poor safety awareness, coordinate UE and LE during activity, safety and reduce risk of falls. Appearance Patient in bed post tx with nurse call, phone, tray, all needs met, bed alarm o n. Mental Status Patient Orientation: Person, Confused, Mumbles Transfers SCALE: Activities may be completed with or without assistive devices. 1-Nlmtzjdxoe-dekauqi completes the activity by him/herself with no assistance from a helper. 5-Set-up or Clean-up Assistance-helper sets up or cleans up; patient completes activity. [place] assists only prior to or following the activity. 4-Supervision or Touching Assistance-helper provides verbal cues and/or touching/steadying and/or contact guard assistance as patient completes activity. Assistance may be provided throughout the activity or intermittently. 3-Partial/Moderate Assistance-helper does LESS THAN HALF the effort. [place] lifts, holds or supports trunk or limbs, but provides less than half the effort. 2-Substantial/Maximal Assistance-helper does MORE THAN HALF the effort. [place] lifts or holds trunk or limbs and provides more than half the effort. 9-Vuburgecm-absdws does ALL the effort. Patient does none of the effort to complete the activity. Or, the assistance of 2 or more helpers is required for the patient to complete the activity. If activity was not attempted, code reason: 7-Patient Refused. 9-Not Applicable-not attempted and the patient did not perform the activity before the current illness, exacerbation or injury. 10-Not Attempted due to Environmental Limitations-(lack of equipment, weather restraints, etc.). 88-Not Attempted due to Medical Conditions or Safety Concerns. Roll Left & Right (QC): 6 Sit to Lying (QC): 6 Lying to Sitting/Side of Bed(Q: 6 Sit to Stand (QC): 3 Chair/Yhh-em-Zhczq Xfer(QC): 3 Toilet Transfer (QC): 3 Car Transfer (QC): 7 Patient needs min assist for sit to stand and transfers, cues for safety and hand positioning and often needs actual assist placing his hand in the correct spot. Gait Training Distance: 10'x2 Walk 10 feet (QC): 3 Walk 50 ft with 2 Turns(QC): 7 Walk 150 ft (QC): 7 Walking 10ft/uneven surface-QC: 7 Gait Assistive Device: FWW Patient ambulated 10' into the restroom and sits on the shower bench with min assist using a rolling walker, when done he ambulates 10' back to his bed with min assist using a rolling walker, patient often needs help guiding his walker due to visual impairments. Patient agreed with a lot of encouragement to ambulate to the restroom to take a shower in the first place but afterward he would not do any therapy other than ambulate back to his bed, he could not be redirected to get into WC or ambulate more or get into the recliner, he insisted on going to bed and would not participate further with exercises or anything else. Patient was educated on the benefits of therapy but continue to refuse. Wheelchair Training Wheel 50 ft with 2 turns (QC): 7 Wheel 150 ft (QC): 7 Stair Training 1 Step (curb) (QC): 7 4 Steps (QC): 7 12 Steps (QC): 7 Balance Picking up an Object (QC): 7 Treatments PT performed bed mobility and transfers, ambulation, safety and positioning during shower and dressing, OT performed cleaning from BM, bathing and dressing. Assessment Current Status: Poor Progress Patient refused further treatment after shower. Poor motivation. Overall has declined in functional mobility. PT Short Term Goals Short Term Goals Time Frame: Apr 11, 2020 Roll Left & Right: 5 Sit to lyin Lying to sitting on side of be: 5 Sit to stand: 4 Chair/uml-lg-lsvne transfer: 4 Walk 10 feet: 4 Walk 50 feet with two turns: 3 PT Assembly Line Inspector Goals Custodial Goals PT Custodial Goals Time Frame: Apr 25, 2020 Roll Left & Right (QC): 6 Sit to Lying (QC): 6 Lying-Sitting on Side/Bed(QC): 6 Sit to Stand (QC): 6 Chair/Rfm-le-Acrmo Xfer(QC): 6 Toilet Transfer (QC): 6 Car Transfer (QC): 4 Does the Patient Walk: Yes Walk 10 feet (QC): 4 Walk 50ft with 2 Turns (QC): 4 Walk 150 ft (QC): 9 Walking 10ft on Uneven Surface: 3 1 Step (curb) (QC): 3 4 Steps (QC): 9 12 Steps (QC): 9 Picking up an Object (QC): 9 Does the Pt use WC or Scooter?: Yes Wheel 50 feet with 2 turns (QC: 6 Type: Manual Wheel 150 feet: 6 Type: Manual PT Plan Problem List Problem List: Activity Tolerance, Functional Strength, Safety, Balance, Gait, Transfer, Bed Mobility, ROM Treatment/Plan Treatment Plan: Continue Plan of Care Treatment Plan: Bed Mobility, Education, Functional Activity Kera, Functional Strength, Group Therapy, Gait, Safety, Therapeutic Exercise, Transfers Treatment Duration: Apr 25, 2020 Frequency: At least 5 of 7 days/Wk (IRF) Estimated Hrs Per Day: 1.5 hours per day Patient and/or Family Agrees t: Yes Safety Risks/Education Patient Education: Gait Training, Transfer Techniques, Correct Positioning, Safety Issues Teaching Recipient: Patient Teaching Methods: Demonstration, Discussion Response to Teaching: Reinforcement Needed Time/GCodes Time In: 0900 Time Out: 1000 Total Billed Treatment Time: 60 Total Billed Treatment 1 visit FA 30' co-treated with OT for 30' IVÁN DUKE PT Apr 11, 2020 09:37
--- NOTE | 2020-04-11 09:40 | Occupational Ther Daily Note ---
OT Current Status-Daily Note Subjective Pt initially refused tx, but with moderate encouragement, pt agreed to OT/PT cotreat. In shower, OT would ask if water temperature feels fine, pt stated that it was, but then when water moved around body, pt grunted and OT asked if water was too hot, pt replied with a yes. Mental Status/Objective Patient Orientation: Confused ADL-Treatment Therapy Code Descriptions/Definitions Functional [place] Measure: 0=Not Assessed/NA 4=Minimal Assistance 1=Total Assistance 5=Supervision or Setup 2=Maximal Assistance 6=Modified [place] 3=Moderate Assistance 7=Complete IndependenceSCALE: Activities may be completed with or without assistive devices. 0-Kpvelfxwhr-uhhtkxe completes the activity by him/herself with no assistance from a helper. 5-Set-up or Clean-up Assistance-helper sets up or cleans up; patient completes activity. [place] assists only prior to or following the activity. 4-Supervision or Touching Assistance-helper provides verbal cues and/or touching/steadying and/or contact guard assistance as patient completes activity. Assistance may be provided throughout the activity or intermittently. 3-Partial/Moderate Assistance-helper does LESS THAN HALF the effort. [place] lifts, holds or supports trunk or limbs, but provides less than half the effort. 2-Substantial/Maximal Assistance-helper does MORE THAN HALF the effort. [place] lifts or holds trunk or limbs and provides more than half the effort. 7-Qgjvfdsuk-imjjlp does ALL the effort. Patient does none of the effort to complete the activity. Or, the assistance of 2 or more helpers is required for the patient to complete the activity. If activity was not attempted, code reason: 7-Patient Refused. 9-Not Applicable-not attempted and the patient did not perform the activity before the current illness, exacerbation or injury. 10-Not Attempted due to Environmental Limitations-(lack of equipment, weather restraints, etc.). 88-Not Attempted due to Medical Conditions or Safety Concerns. Bathing Location: L Arm, R Arm, L Upper Leg, R Upper Leg, Chest, Abdomen, Perin eal Area Shower/Bathe Self (QC): 1 (Pt required max cues to wash body parts thoroughly. Assistance to wash lower legs and feet. Assist x2 to wash buttocks ) Upper Body Dressing (QC): 3 (Pt able to thread arms through, but thread L arm through head hole, required assist to be redirected and assist to manage down trunk) Lower Body Dressing (QC): 1 (Assistance to thread legs through pants/brief, assistance x2 to perform pants hike. Pt refused to complete any part.) On/Off Footwear: 1 (Dependent. Pt refused to complete any part.) Toileting Hygiene (QC): 1 (Assistance for all components. Assist x2 in stand.) Other Treatment PT/OT cotreat due to skill of 2 clinicians required which a rehabilitation specialist could not perofmr in order to cooridnate UE/LEs with tasks, and due to pt's limitations in mobility, endurance, strength, R side neglect. OT focused on ADLS, UE placement, and cues for sequencing and safety, PT focused on LE placement, gross overall movements, and mobility/transfers. Pt began tx in recliner and nursing stated that he had a BM in recliner. Pt stood at FWW and OT performed hygiene. Pt then ambulated to shower with an initial refusal, but required moderate encouragement then agreed. During shower, pt frequently stated that he did not want to wash body or continue through shower. Pt required max cues and encouragement to continue washing body parts. When dressing, pt stated that he could not don his own pants. Pt instructed to don shirt and OT held shirt on L side in front of his face. Pt asked where his shirt was and OT explained that it was on his L side in front of him. Pt turned head to grab shirt and donned shirt, being redirected after place L arm through head hole. Pt stood and OT performed hygiene due to little bowel done in shower. OT also performed washing buttocks and pant hike. Pt ambulated out of shower and instructed to ambulate to w/c. Pt declined, and stated that he did not want to and continued to ambulate towards bed. OT explained benefits of staying up and participating in therapy, but pt continued to ambulate towards bed. Pt refused further tx at this time, although OT had planned to continue tx. Pt in bed, post tx, with bed alarm on, call light in reach and all needs met. OT described to pt that they would come back later for more therapy. Education OT Patient Education: Correct positioning, Modified ADL techniques, Progress toward Goal/Update tx plan, Purpose of tx/functional activities, Rehab process, Safety issues, Transfer techniques Teaching Recipient: Patient Teaching Methods: Discussion Response to Teaching: Verbalize Understanding OT Short Term Goals Short Term Goals Time Frame: Apr 19, 2020 Oral hygiene: 5 Toileting hygiene: 3 Shower/bathe self: 3 Upper body dressin Lower body dressin OT Usp Goals Linux Vmware Administrator Goals Time Frame: Apr 26, 2020 Eating (QC): 6 Oral Hygiene (QC): 6 Toileting Hygiene (QC): 6 Shower/Bathe Self (QC): 4 Upper Body Dressing (QC): 5 Lower Body Dressing (QC): 5 On/Off Footwear (QC): 5 Additional Goals: 1-Demonstrate ADL Tasks, 2-Verbalize Understanding, 3- ImproveStrength/Kera 1=Demonstrate adherence to instructed precautions during ADL tasks. 2=Patient will verbalize/demonstrate understanding of assistive devices /modifications for ADL. 3=Patient will improve strength/tolerance for activity to enable patient to perform ADL's. OT Education/Plan Problem List/Assessment Assessment: Decreased Activ Tolerance, Decreased Safety Aware, Decreased UE Strength, Impaired Cognition, Impaired Coordination, Impaired Funct Balance, Impaired I ADL's, Impaired Self-Care Skills, Visual-Perceptual Deficit Discharge Recommendations Plan/Recommendations: Continue POC Treatment Plan/Plan of Care Patient would benefit from OT for education, treatment and training to promote independence in ADL's, mobility, safety and/or upper extremity function for ADL's. Plan of Care: ADL Retraining, Functional Mobility, Group Exercise/Act as Ind, UE Funct Exercise/Act, UE Neuromus Re-Ed/Coord, Visual/Perceptual Retrain, W/C Management Training Treatment Duration: Apr 26, 2020 Frequency: At least 5 of 7 days/Wk (IRF) Estimated Hrs Per Day: 1.5 hours per day Agreement: Yes Rehab Potential: Poor Time/GCodes Start Time: 09:00 Stop Time: 09:30 Total Time Billed (hr/min): 30 Billed Treatment Time 1, ADL 2 (30') LUCILLE PACE OT Apr 11, 2020 09:40
--- NOTE | 2020-04-11 10:13 | Speech Therapy Daily Note ---
Speech Daily Progress Note Subjective Date Seen by Provider: Apr 11, 2020 Time Seen by Provider: 00:30 Patient was sitting up in his recliner, requesting he be put back to bed. Patient is scheduled to receive OT and PT at 9:00 am. Objective Patient completed a series of questions related to the past 24 hours with 50% accuracy given mod to max cues. Assessment Assessment Current Status: Regressing Treatment Plan Continue Plan of Care Speech Short Term Goals Short Term Goals Short Term Goals 1) Patient will complete memory tasks related to his daily needs with 80% accuracy given minimal cues. 2) Patient will complete tasks safety awareness to his daily needs with 80% accuracy given minimal cues. 3) Patient will complete problem solving tasks related to his daily needs with 80% accuracy given minimal cues. 4) Patient will tolerate least restrictive diet level without s/s of aspiration at 80% with minimal cues. 5) Patient/caregiver will utilize compensatory strategies as trained at 90% with minimal cues. Speech Assisted Goals Assisted Goals Patient will improve cognitive-communication abilities in order to complete daily tasks with decreased assistance. Patient will maintain adequate nutrition/hydration via safe effective swallow function. Speech-Plan Patient/Family Goals Patient/Family Goals: Patient plans on returning to his home with family support once that is arranged. Treatment Plan Speech Therapy Treatment Plan: Continue Plan of Care Treatment Duration: Apr 12, 2020 Frequency: 4 times per week (Patient will receive skilled ST 4-5x per week) Estimated Hrs Per Day: .5 hour per day Rehab Potential: Poor Barriers to Learning: Patient's hx of fall with injury, recent CVA, refusal to work with therapy and age Pt/Family Agrees to Plan: Yes Safety Risks/Education Teaching Methods: Demonstration, Discussion Response to Teaching: Verbalize Understanding, Return Demonstration, Reinforcement Needed Education Topics Provided: Continued safety with oral intake and within his room Time Speech Therapy Time In: 08:30 Speech Therapy Time Out: 09:00 Total Billed Time: 30 Billed Treatment Time 1MARCIO SLTS No WH[place]ON, BETH[address] ST Apr 11, 2020 10:13
--- NOTE | 2020-04-11 11:19 | PM&R Progress Note ---
Subjective HPI/CC On Admission Date Seen by Provider: Apr 11, 2020 Time Seen by Provider: 11:30 Subjective/Events-last exam 04/11/20: Foot pain requiring brief course of Indomethacin per Dr Goodwin and I did update Cardiology regarding this since OAC and Plavix high risk for bleed but he did not respond to steroids and we have no other choice Family training tomorrow Regressed in speech overall May need skilled care Participation a bit in therapy 04/10/20: Decreasing participation so discharge planning for later this week Family education for daughter tomorrow and may need to go to skilled Not cooperating Denies any changes in his symptoms 04/09/20: Patient refusing to participate with therapy most of the time now Loose stools noted Isolated low grade fever once day O x 2 Family can help him at DC Goal is to go home and with 04/08/20: is at the bedside Hemoglobin 13.8 Potassium 2.9 started supplement Slight temperature of 37.9 Re-evaluating his swallowing Monitoring closely 04/07/20: Loose BM Sore feet Will add Hydrocodone Confusion noted 04/06/20: Left foot pain improved DC IV since it has remained in place for several days Improved transfers Not drinking much due to thickened liquids 04/05/20: Left foot pain improved No issues otherwise Walking pretty well 04/04/20: No change in the left foot pain but it does appear to be less erythema Keflex maintained and S/P steroid injection yesterday 04/03/20: Left foot continues to be an issue Slightly red so I did start him on Keflex 500 QID I did speak with Dr. Goodwin who recommended one dose of steroid to see if we can decrease the inflammation for any type of gout problem No other issues reported 04/02/20: Uric acid was elevated at 8.[address] Goodwin who ordered the test Toenail care provided Plavix and oral anticoagulants tolerated well Walked in to see him and he had taken his pants custodial down his legs Depends diaper intact 04/01/20: Pt really cant walk very well today Dr. Goodwin will be in for toenail care Reports foot pain but it varies whether he reports it hurts or it doesnt Incontinence now Very confused Eliquis started along with his Plavix 03/31/20: More confused today Dr Barajas evaluated a run of atrial flutter of 160 last night for a brief moment so added Eliquis and maintained on Plavix for carotid stenosis Difficulty transferring Podiatry consult tomorrow 03/30/20: Up in chair today Incontinent now Dysphagia 2 diet tolerated Did not eat lunch Sleepy Vision changes are profound 03/29/20: Patient seems to be progressing very well Able to walk farther today Seems more alert and less confused today Outperforming with therapy today No pain reported ST working with him for swallowing and cognition Checked meds and labs Review of Systems General: Fatigue, Malaise Neurological: Weakness, Incoordination, Change in speech Objective Exam Vital Signs Vital Signs Date Time Temp Pulse Resp B/P (MAP) Pulse Ox O2 Delivery O2 Flow Rate FiO2 04/11/20 21:00 Room Air 04/11/20 20:00 77 119/57 (77) 04/11/20 18:00 36.8 18 93 Capillary Refill : General Appearance: No Apparent Distress, WD/WN, Chronically ill HEENT: PERRL/EOMI, TMs Normal, Normal ENT Inspection, Pharynx Normal Neck: Full Range of Motion, Normal Inspection, Non Tender, Supple, Carotid Bruit Respiratory: Chest Non Tender, Lungs Clear, Normal Breath Sounds, No Accessory Muscle Use, No Respiratory Distress Cardiovascular: Regular Rate, Rhythm, No Edema, No Gallop, No JVD, No Murmur, Normal Peripheral Pulses Gastrointestinal: Normal Bowel Sounds, No Organomegaly, No Pulsatile Mass, Non Tender, Soft Back: Normal Inspection, No CVA Tenderness, No Vertebral Tenderness Extremity: Normal Capillary Refill, Normal Inspection, Normal Range of Motion, Non Tender, No Calf Tenderness, No Pedal Edema Neurologic/Psychiatric: Alert, Normal Mood/Affect, Abnormal multiple knife edge trimmer operator II-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 FIM Transfers Therapy Code Descriptions/Definitions Functional [place] Measure: 0=Not Assessed/NA 4=Minimal Assistance 1=Total Assistance 5=Supervision or Setup 2=Maximal Assistance 6=Modified Andrew 3=Moderate Assistance 7=Complete IndependenceSCALE: Activities may be completed with or without assistive devices. 1-Plwidpnilm-tghkyso completes the activity by him/herself with no assistance from a helper. 5-Set-up or Clean-up Assistance-helper sets up or cleans up; patient completes activity. [place] assists only prior to or following the activity. 4-Supervision or Touching Assistance-helper provides verbal cues and/or touching/steadying and/or contact guard assistance as patient completes activity. Assistance may be provided throughout the activity or intermittently. 3-Partial/Moderate Assistance-helper does LESS THAN HALF the effort. [place] lifts, holds or supports trunk or limbs, but provides less than half the effort. 2-Substantial/Maximal Assistance-helper does MORE THAN HALF the effort. [place] lifts or holds trunk or limbs and provides more than half the effort. 7-Uwrammgpz-wnujga does ALL the effort. Patient does none of the effort to complete the activity. Or, the assistance of 2 or more helpers is required for the patient to complete the activity. If activity was not attempted, code reason: 7-Patient Refused. 9-Not Applicable-not attempted and the patient did not perform the activity before the current illness, exacerbation or injury. 10-Not Attempted due to Environmental Limitations-(lack of equipment, weather restraints, etc.). 88-Not Attempted due to Medical Conditions or Safety Concerns. Roll Left to Right (QC): 6 Sit to Lying (QC): 6 Sit to Stand (QC): 3 Chair/Fbr-ys-Bnevn Xfer(QC): 3 Car Transfer (QC): 7 Gait Training Does the Patient Walk?: Yes Distance: 10'x2 Walk 10 feet (QC): 3 Walk 50 ft with 2 Turns(QC): 7 Walk 150 ft (QC): 7 Walking 10ft/uneven surface-QC: 7 Gait Persons Needed: 1 Gait Assistive Device: FWW Wheelchair Training Does the Pt Use a Wheelchair?: Yes Wheel 50 ft with 2 turns (QC): 7 Wheel 150 ft (QC): 7 Type of Wheelchair: Manual (3) Stair Training 1 Step (curb) (QC): 7 4 Steps (QC): 7 12 Steps (QC): 7 Balance Picking up an Object (QC): 7 ADL-Treatment Eating (QC): 3 (Trudi, pt able to feed self but required moderate cues to continue to eat and drink. ) Oral Hygiene (QC): 4 (SBA, pt able to brush gums, but needed cues to brush thoroughly and cues to sequence through task) Bathing Location: L Arm, R Arm, L Upper Leg, R Upper Leg, Chest, Abdomen, Perineal Area Shower/Bathe Self (QC): 1 (Pt required max cues to wash body parts thoroughly. Assistance to wash lower legs and feet. Assist x2 to wash buttocks ) Upper Body Dressing (QC): 3 (Pt able to thread arms through, but thread L arm through head hole, required assist to be redirected and assist to manage down trunk) Lower Body Dressing (QC): 1 (Assistance to thread legs through pants/brief, assistance x2 to perform pants hike. Pt refused to complete any part.) On/Off Footwear (QC): 1 (Dependent. Pt refused to complete any part.) Toileting Hygiene (QC): 1 (Assistance for all components. Assist x2 in stand.) Toilet Transfer (QC): 1 (assist x3, SPT to BSC on R side.) Assessment/Plan Assessment and Plan Assess & Plan/Chief Complaint Assessment: s/p acute ischemic stroke Bilateral carotid stenosis has f/u [address] Sanders CTA revealed bilateral carotid stenosis >70%, chronically occluded right vertebral artery, left vertebral artery stenosis >70% Vertebral artery stenosis/occlusion Impaired vision in both eyes Dementia 03/06 SL[facility]MS HTN HLD DVT prophylaxis: Lovenox Chronic debility and non-ambulatory for 2 years per Atrial flutter noted on Tely 03/30/20 at 160 HR briefly so starte don OAC 03/31/20 Left foot pain cellulitis vs. gout? Keflex and Solumedrol initiated 04/03/20 Plan: IRF protocol Wheelchair bound at home Statin Monitor closely 03/29/20: Able to ambulate a lot more today Feels good about progress ST to help with swallowing 03/30/20: Advanced diet Incontinence care Vision issues 03/31/20: Added OAC to Plavix for atrial flutter run on Tely last night and reviewed by Dr Barajas Confusion monitoring 04/01/20: Podiatry appreciated Monitor BP OAC and Plavix required 04/02/20: Monitor confusion Continue aggressive therapy OAC and Plavix 04/03/20: Left foot gout versus cellulitis 04/03/20 Monitor closely 1 dose of steroids should not place him at risk for bleeding 04/04/20: Monitor left foot Monitor BP 04/05/20: Improved left foot pain Monitor for falls 04/06/20: ST to hopefully increase to thin liquids Wednesday Monitor left foot 04/07/20: Monitor closely Hydrocodone Check labs in am 04/08/20: Labs stable Monitor isolated low grade fever Continue treatment 04/09/20: Participation monitoring Monitor pain 04/10/20: Family training May need skilled care 04/11/20: Indomethacin for left foot pain then Allopurinol High risk for bleed on NSAID's and updated Cardiology but only brief time (1) 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 Status: Acute (2) Carotid stenosis, bilateral Status: Acute (3) Right homonymous hemianopsia due to recent cerebral infarction Status: Acute (4) Vertebral artery stenosis/occlusion Status: Acute (5) Impaired vision in both eyes Status: Acute (6) HLD (hyperlipidemia) Status: Acute (7) HTN (hypertension) Status: Acute AYALA PARKS DO Apr 11, 2020 11:19
--- NOTE | 2020-04-11 12:30 | NUR ---
DR. GARCIA HERE TO SEE PATIENT AND EXAMINED LEGS AND FEET. PATIENT CONTINUES TO COMPLAIN OF MUCH PAIN. ORDERS TO START ALLOPURINOL AND INDOCIN.
--- NOTE | 2020-04-11 12:43 | Podiatry Progress Note ---
Standard Progress Note Progress Notes/Assess & Plan Date Seen by a Provider: Apr 11, 2020 Time Seen by a Provider: 12:38 Progress/Assessment & Plan There is decreased erythema and edema to the left foot and leg. There continues to be some pain with passive motion of the left ankle and rear foot. There is no significant elevation of calor to the left foot compared to the right. Uric acid was 8.4mg/dL Dx: Gout, Neuropathy, Onychomycosis Plan: Will discuss anti-inflammatory medication with Hospitalist. Final Diagnosis Gout, Neuropathy, Onychomycosis MARLENE GARCIA DPM Apr 11, 2020 12:42
[2020-04-11] MEDS ORDERED: INDOMETHACIN 25 MG (INDOCIN) CAP PO NR (13:30)
--- NOTE | 2020-04-11 13:48 | Occupational Ther Daily Note ---
OT Current Status-Daily Note Subjective Pt initially refused tx, but after max encouragement and explanation of benefits of therapy, pt agreed to sit EOB and perform oral hygiene. Pt reported that he felt dizzy when sitting EOB, vitals were taken, 119/76 for blood pressure and 93% oxygen saturation. nurse notified. Mental Status/Objective Patient Orientation: Confused ADL-Treatment Therapy Code Descriptions/Definitions Functional [place] Measure: 0=Not Assessed/NA 4=Minimal Assistance 1=Total Assistance 5=Supervision or Setup 2=Maximal Assistance 6=Modified [place] 3=Moderate Assistance 7=Complete IndependenceSCALE: Activities may be completed with or without assistive devices. 0-Yghwvxogbv-guwnked completes the activity by him/herself with no assistance from a helper. 5-Set-up or Clean-up Assistance-helper sets up or cleans up; patient completes activity. [place] assists only prior to or following the activity. 4-Supervision or Touching Assistance-helper provides verbal cues and/or touching/steadying and/or contact guard assistance as patient completes activity. Assistance may be provided throughout the activity or intermittently. 3-Partial/Moderate Assistance-helper does LESS THAN HALF the effort. [place] lifts, holds or supports trunk or limbs, but provides less than half the effort. 2-Substantial/Maximal Assistance-helper does MORE THAN HALF the effort. [place] lifts or holds trunk or limbs and provides more than half the effort. 2-Iqzspbenx-mwcqas does ALL the effort. Patient does none of the effort to complete the activity. Or, the assistance of 2 or more helpers is required for the patient to complete the activity. If activity was not attempted, code reason: 7-Patient Refused. 9-Not Applicable-not attempted and the patient did not perform the activity before the current illness, exacerbation or injury. 10-Not Attempted due to Environmental Limitations-(lack of equipment, weather restraints, etc.). 88-Not Attempted due to Medical Conditions or Safety Concerns. Eating (QC): 3 (Min A with task. Pt required moderate cues and max encourage ment to eat.) Oral Hygiene (QC): 3 (Trudi, pt required cues to clean gums and tongue using oral swab) Lower Body Dressing (QC): 1 (Pt able to thread legs through pants and pull pants above knee while sitting with minimal assist. Assist x2 to perform pants hike while standing) Toileting Hygiene (QC): 1 (Assistance for all component. assist x2) Toilet Transfer (QC): 3 (ModA, assistance for cueing to stand up all the way and also assistance needed to position over BSC) Other Treatment Pt began tx supine in bed. Pt refused tx initially, but with max encouragement, pt agreed to oral hygiene and continued tx afterwards. Pt sat EOB and stated that he felt dizzy, vitals were taken and nursing notified. OT asked pt if dizziness was due to a possibility of double vision. Pt stated that he did not know and OT placed her pointer finger directed in front on pts midline and asked if he could see. Pt stated that he could not see her finger after closing an eye at a time. visual tracking attempted but pt unable to follow instructions to assess. Pt cleaned gums with a cue to begin task and a cue to brush tongue. Pt brushed hair sitting EOB, min A. Pt stated need to urinate, standing at FWW, Mod A standing balance due to retropulsion, OT placed urinal but pt unable to urinate. Pt sat back EOB. Then stated that he needed to use the restroom, so pt transferred from EOB sitting to BSC with max cues to stand up all the way, grab walker and also to take steps. Pt also needed assistance to position buttocks over BSC. Upon finishing, pt stood at FWW so OT could perform hygiene and perform pants hike. OT explained to pt that they were transferring to the bed and pt declined. OT asked where pt would like to go and pt asked to go to bed. OT restated that that was their original plan. Pt transferred with FWW to EOB and transferred sit to supine in bed. Pt initially refused to eat, but OT explained that he needed to eat and placed tray in front of him.OT explained items on tray and asked to eat something. Pt ate with moderate cues to continue to eat or to take drinks. Pt was supine in bed, post tx, with call light in reach, bed alarm on and all needs met. Education OT Patient Education: Correct positioning, Modified ADL techniques, Progress toward Goal/Update tx plan, Purpose of tx/functional activities, Rehab process, Safety issues, Transfer techniques Teaching Recipient: Patient Teaching Methods: Discussion Response to Teaching: Verbalize Understanding OT Short Term Goals Short Term Goals Time Frame: Apr 19, 2020 Oral hygiene: 5 Toileting hygiene: 3 Shower/bathe self: 3 Upper body dressin Lower body dressin OT Flight Test Mechanic Goals Flight Test Mechanic Goals Time Frame: Apr 26, 2020 Eating (QC): 6 Oral Hygiene (QC): 6 Toileting Hygiene (QC): 6 Shower/Bathe Self (QC): 4 Upper Body Dressing (QC): 5 Lower Body Dressing (QC): 5 On/Off Footwear (QC): 5 Additional Goals: 1-Demonstrate ADL Tasks, 2-Verbalize Understanding, 3- ImproveStrength/Kera 1=Demonstrate adherence to instructed precautions during ADL tasks. 2=Patient will verbalize/demonstrate understanding of assistive devices/modifications for ADL. 3=Patient will improve strength/tolerance for activity to enable patient to perform ADL's. OT Education/Plan Problem List/Assessment Assessment: Decreased Activ Tolerance, Decreased Safety Aware, Decreased UE Strength, Impaired Cognition, Impaired Coordination, Impaired Funct Balance, Impaired I ADL's, Impaired Self-Care Skills, Visual-Perceptual Deficit Discharge Recommendations Plan/Recommendations: Continue POC Treatment Plan/Plan of Care Patient would benefit from OT for education, treatment and training to promote independence in ADL's, mobility, safety and/or upper extremity function for ADL's. Plan of Care: ADL Retraining, Functional Mobility, Group Exercise/Act as Ind, UE Funct Exercise/Act, UE Neuromus Re-Ed/Coord, Visual/Perceptual Retrain, W/C Management Training Treatment Duration: Apr 26, 2020 Frequency: At least 5 of 7 days/Wk (IRF) Estimated Hrs Per Day: 1.5 hours per day Agreement: Yes Rehab Potential: Poor Time/GCodes Start Time: 11:30 Stop Time: 12:15 Total Time Billed (hr/min): 45 Billed Treatment Time 1, ADL 3 LUCILLE PACE OT Apr 11, 2020 13:48
--- NOTE | 2020-04-11 14:24 | Physical Therapy Daily Note ---
PT Daily Note-Current Subjective Patient in bed pre tx, agrees to PT after a lot of encouragement, has no complaints of pain. Appearance Patient in bed post tx with nurse call, phone, tray, bed alarm on. Mental Status Patient Orientation: Person, Confused Transfers SCALE: Activities may be completed with or without assistive devices. 7-Eiimszqdwa-ygejgek completes the activity by him/herself with no assistance from a helper. 5-Set-up or Clean-up Assistance-helper sets up or cleans up; patient completes activity. [place] assists only prior to or following the activity. 4-Supervision or Touching Assistance-helper provides verbal cues and/or touching/steadying and/or contact guard assistance as patient completes activity. Assistance may be provided throughout the activity or intermittently. 3-Partial/Moderate Assistance-helper does LESS THAN HALF the effort. [place] lifts, holds or supports trunk or limbs, but provides less than half the effort. 2-Substantial/Maximal Assistance-helper does MORE THAN HALF the effort. [place] lifts or holds trunk or limbs and provides more than half the effort. 2-Zdrduuybc-caidid does ALL the effort. Patient does none of the effort to complete the activity. Or, the assistance of 2 or more helpers is required for the patient to complete the activity. If activity was not attempted, code reason: 7-Patient Refused. 9-Not Applicable-not attempted and the patient did not perform the activity before the current illness, exacerbation or injury. 10-Not Attempted due to Environmental Limitations-(lack of equipment, weather restraints, etc.). 88-Not Attempted due to Medical Conditions or Safety Concerns. Roll Left & Right (QC): 6 Sit to Lying (QC): 6 Lying to Sitting/Side of Bed(Q: 3 Sit to Stand (QC): 3 Patient sits on the side of the bed with min assist and states he needs to use the urinal, he stands with min assist and an registered nurse first assistant brings his pants down and places his urinal, patient stands for about 5 min and urinates, when he is done patient sits abruptly and states he can't do any more. Patient will now not ambulate like he said he would before standing to urinate. Patient is encouraged to participate but he just says "I can't" and begs to lay down and then forcefully does it himself. Patient is positioned safely in bed. Treatments bed mobility, standing Assessment Current Status: Poor Progress patient continues to refuse most tx PT Short Term Goals Short Term Goals Time Frame: Apr 11, 2020 Roll Left & Right: 5 Sit to lyin Lying to sitting on side of be: 5 Sit to stand: 4 Chair/yge-yl-gkeul transfer: 4 Walk 10 feet: 4 Walk 50 feet with two turns: 3 PT Prison Goals Nut Packer Goals PT Nut Packer Goals Time Frame: Apr 25, 2020 Roll Left & Right (QC): 6 Sit to Lying (QC): 6 Lying-Sitting on Side/Bed(QC): 6 Sit to Stand (QC): 6 Chair/Cxr-dh-Xfmnk Xfer(QC): 6 Toilet Transfer (QC): 6 Car Transfer (QC): 4 Does the Patient Walk: Yes Walk 10 feet (QC): 4 Walk 50ft with 2 Turns (QC): 4 Walk 150 ft (QC): 9 Walking 10ft on Uneven Surface: 3 1 Step (curb) (QC): 3 4 Steps (QC): 9 12 Steps (QC): 9 Picking up an Object (QC): 9 Does the Pt use WC or Scooter?: Yes Wheel 50 feet with 2 turns (QC: 6 Type: Manual Wheel 150 feet: 6 Type: Manual PT Plan Problem List Problem List: Activity Tolerance, Functional Strength, Safety, Balance, Gait, Transfer, Bed Mobility, ROM Treatment/Plan Treatment Plan: Continue Plan of Care Treatment Plan: Bed Mobility, Education, Functional Activity Kera, Functional Strength, Group Therapy, Gait, Safety, Therapeutic Exercise, Transfers Treatment Duration: Apr 25, 2020 Frequency: At least 5 of 7 days/Wk (IRF) Estimated Hrs Per Day: 1.5 hours per day Patient and/or Family Agrees t: Yes Safety Risks/Education Patient Education: Correct Positioning, Safety Issues Teaching Recipient: Patient Teaching Methods: Demonstration, Discussion Response to Teaching: Reinforcement Needed Time/GCodes Time In: 1400 Time Out: 1420 Total Billed Treatment Time: 20 Total Billed Treatment 1 visit FA 20' KAYLATANNERIVÁN PT Apr 11, 2020 14:24
[2020-04-11 18:00] VITALS: BP 115/57
--- NOTE | 2020-04-11 18:00 | NUR ---
VISITED. INCONTINENT LOOSE STOOLS X 3 TODAY.
[2020-04-11 20:00] VITALS: BP 119/57
[2020-04-11] MEDS ORDERED: INDOMETHACIN 25 MG (INDOCIN) CAP PO SCH (21:00)
[2020-04-11] MEDS: SERTRALINE 50 MG (ZOLOFT) TABLET PO SCH (21:07)
[2020-04-11] MEDS: INDOMETHACIN 25 MG (INDOCIN) CAP PO SCH (21:23)
[2020-04-12 05:51] VITALS: BP 109/55
[2020-04-12] MEDS: ACETAMINOPHEN 325 MG TABLET PO PRN ×2 (06:02→18:32)
[2020-04-12] MEDS: KCL 20 MEQ TAB (K-DUR) PO SCH (06:03)
[2020-04-12] MEDS: SENNA W/DOCUSATE (SENOKOT S) TABLET PO SCH ×2 (08:07→21:05)
[2020-04-12] MEDS: polyethylene glycoL POWDER 17 GM (MIRALAX) PACK PO SCH ×2 (08:07→21:05)
[2020-04-12] MEDS: DOCUSATE SODIUM 100 MG (COLACE) CAP PO SCH ×2 (08:07→21:05)
[2020-04-12] MEDS: ALLOPURINOL 100 MG (ZYLOPRIM) TAB PO SCH (08:22)
[2020-04-12] MEDS: CLOPIDOGREL 75 MG (PLAVIX) TABLET PO SCH (08:22)
[2020-04-12] MEDS: CARVEDILOL 12.5 MG (COREG) TABLET PO SCH ×2 (08:22→21:05)
[2020-04-12] MEDS: FLUTICASONE NASAL SPRAY (FLONASE) 16 GM BTL NS SCH (08:22)
[2020-04-12] MEDS: APIXABAN 5 MG (ELIQUIS) TABLET PO SCH ×2 (08:22→21:05)
[2020-04-12] MEDS: ZINC OXIDE 16% OINT (BUTT PASTE) 57 GM TUBE TOP SCH ×2 (08:22→21:11)
[2020-04-12] MEDS: SALINE NASAL SPRAY (OCEAN) 45 ML BTL SCH ×4 (08:23→21:11)
[2020-04-12] MEDS: MICONAZOLE 2% POWDER (DESENEX AF) 90 GM TOP SCH ×2 (08:25→21:17)
--- NOTE | 2020-04-12 09:42 | PM&R Progress Note ---
Subjective HPI/CC On Admission Date Seen by Provider: Apr 12, 2020 Time Seen by Provider: 09:45 Subjective/Events-last exam 04/12/20: Indocin and Allopurinol tolerated No bleeding issues Decreased appetite Family education today Home with [facility] Wednesday BM+ 04/11/20: Foot pain requiring brief course of Indomethacin per Dr Goodwin and I did update Cardiology regarding this since OAC and Plavix high risk for bleed but he did not respond to steroids and we have no other choice Family training tomorrow Regressed in speech overall May need skilled care Participation a bit in therapy 04/10/20: Decreasing participation so discharge planning for later this week Family education for daughter tomorrow and may need to go to skilled Not cooperating Denies any changes in his symptoms 04/09/20: Patient refusing to participate with therapy most of the time now Loose stools noted Isolated low grade fever once day O x 2 Family can help him at DC Goal is to go home and with 04/08/20: is at the bedside Hemoglobin 13.8 Potassium 2.9 started supplement Slight temperature of 37.9 Re-evaluating his swallowing Monitoring closely 04/07/20: Loose BM Sore feet Will add Hydrocodone Confusion noted 04/06/20: Left foot pain improved DC IV since it has remained in place for several days Improved transfers Not drinking much due to thickened liquids 04/05/20: Left foot pain improved No issues otherwise Walking pretty well 04/04/20: No change in the left foot pain but it does appear to be less erythema Keflex maintained and S/P steroid injection yesterday 04/03/20: Left foot continues to be an issue Slightly red so I did start him on Keflex 500 QID I did speak with Dr. Goodwin who recommended one dose of steroid to see if we can decrease the inflammation for any type of gout problem No other issues reported 04/02/20: Uric acid was elevated at 8.[address] Goodwin who ordered the test Toenail care provided Plavix and oral anticoagulants tolerated well Walked in to see him and he had taken his pants fdc down his legs Depends diaper intact 04/01/20: Pt really cant walk very well today Dr. Goodwin will be in for toenail care Reports foot pain but it varies whether he reports it hurts or it doesnt Incontinence now Very confused Becca started along with his Plavix 03/31/20: More confused today Dr Barajas evaluated a run of atrial flutter of 160 last night for a brief moment so added Eliquis and maintained on Plavix for carotid stenosis Difficulty transferring Podiatry consult tomorrow 03/30/20: Up in chair today Incontinent now Dysphagia 2 diet tolerated Did not eat lunch Sleepy Vision changes are profound 03/29/20: Patient seems to be progressing very well Able to walk farther today Seems more alert and less confused today Outperforming with therapy today No pain reported ST working with him for swallowing and cognition Checked meds and labs Review of Systems General: Fatigue, Malaise Neurological: Confusion Objective Exam Vital Signs Vital Signs Date Time Temp Pulse Resp B/P (MAP) Pulse Ox O2 Delivery O2 Flow Rate FiO2 04/12/20 20:30 96 Room Air 04/12/20 16:30 37.1 57 16 111/54 (73) Capillary Refill : General Appearance: No Apparent Distress, WD/WN, Chronically ill HEENT: PERRL/EOMI, TMs Normal, Normal ENT Inspection, Pharynx Normal Neck: Full Range of Motion, Normal Inspection, Non Tender, Supple, Carotid Bruit Respiratory: Chest Non Tender, Lungs Clear, Normal Breath Sounds, No Accessory Muscle Use, No Respiratory Distress Cardiovascular: Regular Rate, Rhythm, No Edema, No Gallop, No JVD, No Murmur, Normal Peripheral Pulses Gastrointestinal: Normal Bowel Sounds, No Organomegaly, No Pulsatile Mass, Non Tender, Soft Back: Normal Inspection, No CVA Tenderness, No Vertebral Tenderness Extremity: Normal Capillary Refill, Normal Inspection, Normal Range of Motion, Non Tender, No Calf Tenderness, No Pedal Edema Neurologic/Psychiatric: Alert, Normal Mood/Affect, 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 FIM Transfers Therapy Code Descriptions/Definitions Functional [place] Measure: 0=Not Assessed/NA 4=Minimal Assistance 1=Total Assistance 5=Supervision or Setup 2=Maximal Assistance 6=Modified [place] 3=Moderate Assistance 7=Complete IndependenceSCALE: Activities may be completed with or without assistive devices. 7-Wrhsrafcdp-lsvoahk completes the activity by him/herself with no assistance from a helper. 5-Set-up or Clean-up Assistance-helper sets up or cleans up; patient completes activity. [place] assists only prior to or following the activity. 4-Supervision or Touching Assistance-helper provides verbal cues and/or touching/steadying and/or contact guard assistance as patient completes activity. Assistance may be provided throughout the activity or intermittently. 3-Partial/Moderate Assistance-helper does LESS THAN HALF the effort. [place] lifts, holds or supports trunk or limbs, but provides less than half the effort. 2-Substantial/Maximal Assistance-helper does MORE THAN HALF the effort. [place] lifts or holds trunk or limbs and provides more than half the effort. 1-Phoocdbun-vqffrw does ALL the effort. Patient does none of the effort to complete the activity. Or, the assistance of 2 or more helpers is required for the patient to complete the activity. If activity was not attempted, code reason: 7-Patient Refused. 9-Not Applicable-not attempted and the patient did not perform the activity before the current illness, exacerbation or injury. 10-Not Attempted due to Environmental Limitations-(lack of equipment, weather restraints, etc.). 88-Not Attempted due to Medical Conditions or Safety Concerns. Roll Left to Right (QC): 6 Sit to Lying (QC): 6 Sit to Stand (QC): 3 Chair/Ove-di-Nvlbu Xfer(QC): 3 Car Transfer (QC): 7 Gait Training Does the Patient Walk?: Yes Distance: 10'x2 Walk 10 feet (QC): 3 Walk 50 ft with 2 Turns(QC): 7 Walk 150 ft (QC): 7 Walking 10ft/uneven surface-QC: 7 Gait Persons Needed: 1 Gait Assistive Device: FWW Wheelchair Training Does the Pt Use a Wheelchair?: Yes Wheel 50 ft with 2 turns (QC): 7 Wheel 150 ft (QC): 7 Type of Wheelchair: Manual (3) Stair Training 1 Step (curb) (QC): 7 4 Steps (QC): 7 12 Steps (QC): 7 Balance Picking up an Object (QC): 7 ADL-Treatment Eating (QC): 3 (Min A with task. Pt required moderate cues and max encouragement to eat.) Oral Hygiene (QC): 3 (Trudi, pt required cues to clean gums and tongue using oral swab) Bathing Location: L Arm, R Arm, L Upper Leg, R Upper Leg, Chest, Abdomen, Perineal Area Shower/Bathe Self (QC): 1 (Pt required max cues to wash body parts thoroughly. Assistance to wash lower legs and feet. Assist x2 to wash buttocks ) Upper Body Dressing (QC): 3 (Pt able to thread arms through, but thread L arm through head hole, required assist to be redirected and assist to manage down trunk) Lower Body Dressing (QC): 1 (Pt able to thread legs through pants and pull pants above knee while sitting with minimal assist. Assist x2 to perform pants hike while standing) On/Off Footwear (QC): 1 (Dependent. Pt refused to complete any part.) Toileting Hygiene (QC): 1 (Assistance for all component. assist x2) Toilet Transfer (QC): 3 (ModA, assistance for cueing to stand up all the way and also assistance needed to position over BSC) Assessment/Plan Assessment and Plan Assess & Plan/Chief Complaint Assessment: s/p acute ischemic stroke Bilateral carotid stenosis has f/u [address] Sanders CTA revealed bilateral carotid stenosis >70%, chronically occluded right vertebral artery, left vertebral artery stenosis >70% Vertebral artery stenosis/occlusion Impaired vision in both eyes Dementia 03/06 SLUMS HTN HLD DVT prophylaxis: Lovenox Chronic debility and non-ambulatory for 2 years per Atrial flutter noted on Tely 03/30/20 at 160 HR briefly so starte don OAC 03/31/20 Left foot pain cellulitis vs. gout? Keflex and Solumedrol initiated 04/03/20 Plan: IRF protocol Wheelchair bound at home Statin Monitor closely 03/29/20: Able to ambulate a lot more today Feels good about progress ST to help with swallowing 03/30/20: Advanced diet Incontinence care Vision issues 03/31/20: Added OAC to Plavix for atrial flutter run on Tely last night and reviewed by Dr Barajas Confusion monitoring 04/01/20: Podiatry appreciated Monitor BP OAC and Plavix required 04/02/20: Monitor confusion Continue aggressive therapy OAC and Plavix 04/03/20: Left foot gout versus cellulitis 04/03/20 Monitor closely 1 dose of steroids should not place him at risk for bleeding 04/04/20: Monitor left foot Monitor BP 04/05/20: Improved left foot pain Monitor for falls 04/06/20: ST to hopefully increase to thin liquids Wednesday Monitor left foot 04/07/20: Monitor closely Hydrocodone Check labs in am 04/08/20: Labs stable Monitor isolated low grade fever Continue treatment 04/09/20: Participation monitoring Monitor pain 04/10/20: Family training May need skilled care 04/11/20: Indomethacin for left foot pain then Allopurinol High risk for bleed on NSAID's and updated Cardiology but only brief time 04/12/20: [facility] on Wednesday Gout treatment (1) 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 Status: Acute (2) Carotid stenosis, bilateral Status: Acute (3) Right homonymous hemianopsia due to recent cerebral infarction Status: Acute (4) Vertebral artery stenosis/occlusion Status: Acute (5) Impaired vision in both eyes Status: Acute (6) HLD (hyperlipidemia) Status: Acute (7) HTN (hypertension) Status: Acute AYALA PARKS DO Apr 12, 2020 09:42
--- NOTE | 2020-04-12 09:54 | Physical Therapy Daily Note ---
PT Daily Note-Current Subjective Patient in bed pre tx, agrees to PT, family is here to see progress for DC planning, has no pain but says he has been dizzy, will be co-treating with OT due to poor patient mobility, strength, endurance, poor safety awareness, coordinate UE and LE during activity, safety and reduce risk of falls. Appearance Patient in recliner post tx with nurse call, phone, tray, chair alarm on, family in the room. Mental Status Patient Orientation: Person, Confused, Place Transfers SCALE: Activities may be completed with or without assistive devices. 8-Wkkuwmwyxk-lnaukgj completes the activity by him/herself with no assistance from a helper. 5-Set-up or Clean-up Assistance-helper sets up or cleans up; patient completes activity. [place] assists only prior to or following the activity. 4-Supervision or Touching Assistance-helper provides verbal cues and/or touching/steadying and/or contact guard assistance as patient completes activity. Assistance may be provided throughout the activity or intermittently. 3-Partial/Moderate Assistance-helper does LESS THAN HALF the effort. [place] lifts, holds or supports trunk or limbs, but provides less than half the effort. 2-Substantial/Maximal Assistance-helper does MORE THAN HALF the effort. [place] lifts or holds trunk or limbs and provides more than half the effort. 6-Rrhwmuxth-iatcde does ALL the effort. Patient does none of the effort to complete the activity. Or, the assistance of 2 or more helpers is required for the patient to complete the activity. If activity was not attempted, code reason: 7-Patient Refused. 9-Not Applicable-not attempted and the patient did not perform the activity before the current illness, exacerbation or injury. 10-Not Attempted due to Environmental Limitations-(lack of equipment, weather restraints, etc.). 88-Not Attempted due to Medical Conditions or Safety Concerns. Roll Left & Right (QC): 6 Lying to Sitting/Side of Bed(Q: 4 Sit to Stand (QC): 3 Chair/Nas-uy-Tanrp Xfer(QC): 3 Toilet Transfer (QC): 3 Patient sits at bedside and starts dressing, stands to finish dressing and then does stand pivot into WC. Patient was dizzy at first when sitting but BP was 131/68 O2 was 95%, and HR was 64bpm. It got a little better after a few minutes. After getting back to his room patient had to have a BM, min assist with toilet transfer, dependent for pants and cleaning, then stand pivot transfer min assist to recliner. Wheelchair Training Does the Pt Use a Wheelchair?: Yes Wheel 50 ft with 2 turns (QC): 4 Type of Wheelchair: Manual 100', SBA, cues for direction around obstacles or doorways Exercises Standing in parallel bars x3 for about 30 seconds each time, rest breaks between, patient complains of dizziness. Patient also stood to perform BUE activity x2 Treatments PT performed bed mobility and transfers, WC mobility, standing in parallel bars, safety and positioning during dressing and toileting, OT performed toileting, dr mauricio, UE activity, safety and UE positioning during activity. Assessment Current Status: Poor Progress Patient has poor motivation, gives up easily, has declined in functional mobility over the last week or so. PT Short Term Goals Short Term Goals Time Frame: Apr 11, 2020 Roll Left & Right: 5 Sit to lyin Lying to sitting on side of be: 5 Sit to stand: 4 Chair/vme-qz-slnbm transfer: 4 Walk 10 feet: 4 Walk 50 feet with two turns: 3 PT Dancing Instructor Goals Nursing Home Goals PT Nursing Home Goals Time Frame: Apr 25, 2020 Roll Left & Right (QC): 6 Sit to Lying (QC): 6 Lying-Sitting on Side/Bed(QC): 6 Sit to Stand (QC): 6 Chair/Ust-aw-Wufid Xfer(QC): 6 Toilet Transfer (QC): 6 Car Transfer (QC): 4 Does the Patient Walk: Yes Walk 10 feet (QC): 4 Walk 50ft with 2 Turns (QC): 4 Walk 150 ft (QC): 9 Walking 10ft on Uneven Surface: 3 1 Step (curb) (QC): 3 4 Steps (QC): 9 12 Steps (QC): 9 Picking up an Object (QC): 9 Does the Pt use WC or Scooter?: Yes Wheel 50 feet with 2 turns (QC: 6 Type: Manual Wheel 150 feet: 6 Type: Manual PT Plan Problem List Problem List: Activity Tolerance, Functional Strength, Safety, Balance, Gait, Transfer, Bed Mobility, ROM Treatment/Plan Treatment Plan: Continue Plan of Care Treatment Plan: Bed Mobility, Education, Functional Activity Kera, Functional Strength, Group Therapy, Gait, Safety, Therapeutic Exercise, Transfers Treatment Duration: Apr 25, 2020 Frequency: At least 5 of 7 days/Wk (IRF) Estimated Hrs Per Day: 1.5 hours per day Patient and/or Family Agrees t: Yes Safety Risks/Education Patient Education: Transfer Techniques, Correct Positioning, W/C Management, Safety Issues Teaching Recipient: Patient Teaching Methods: Demonstration, Discussion Response to Teaching: Reinforcement Needed Time/GCodes Time In: 0900 Time Out: 1000 Total Billed Treatment Time: 60 Total Billed Treatment 1 visit FA Norm' IVÁN DUKE PT Apr 12, 2020 09:53
--- NOTE | 2020-04-12 09:57 | Occupational Ther Daily Note ---
OT Current Status-Daily Note Subjective Pt complains of dizziness when sitting EOB at beginning of tx, as well as when attempting to stand, frequent rest breaks were given due to this reason. Pt's and daughter present for family training. Pt's family requests to talk with social media senior associate after tx, OT notified social media senior associate. Mental Status/Objective Patient Orientation: Confused ADL-Treatment Therapy Code Descriptions/Definitions Functional [place] Measure: 0=Not Assessed/NA 4=Minimal Assistance 1=Total Assistance 5=Supervision or Setup 2=Maximal Assistance 6=Modified [place] 3=Moderate Assistance 7=Complete IndependenceSCALE: Activities may be completed with or without assistive devices. 1-Ogyrpdeyqc-dhycnxz completes the activity by him/herself with no assistance from a helper. 5-Set-up or Clean-up Assistance-helper sets up or cleans up; patient completes activity. [place] assists only prior to or following the activity. 4-Supervision or Touching Assistance-helper provides verbal cues and/or touching/steadying and/or contact guard assistance as patient completes acti vity. Assistance may be provided throughout the activity or intermittently. 3-Partial/Moderate Assistance-helper does LESS THAN HALF the effort. [place] lifts, holds or supports trunk or limbs, but provides less than half the effort. 2-Substantial/Maximal Assistance-helper does MORE THAN HALF the effort. [place] lifts or holds trunk or limbs and provides more than half the effort. 7-Zemjkkuch-rdtmio does ALL the effort. Patient does none of the effort to complete the activity. Or, the assistance of 2 or more helpers is required for the patient to complete the activity. If activity was not attempted, code reason: 7-Patient Refused. 9-Not Applicable-not attempted and the patient did not perform the activity before the current illness, exacerbation or injury. 10-Not Attempted due to Environmental Limitations-(lack of equipment, weather restraints, etc.). 88-Not Attempted due to Medical Conditions or Safety Concerns. Upper Body Dressing (QC): 5 (Set up) Lower Body Dressing (QC): 1 (Pt able to thread pants with moderate assistance over legs and assist x2 for standing to perform pants hike) Toileting Hygiene (QC): 1 (Assist x2 to perform pants hike while standing and hygiene) Toilet Transfer (QC): 2 (MaxA, pt required cues to stand up all the way and to position self over seat.) Other Treatment OT/PT cotreat due to skill of 2 clinicians required which a rehab nurse could not perform in order to coordinate UE/LEs, and due to pt's limitations in standing balance, functional mobility, activity tolerance, strength, R visual deficit. OT focused on UE placement, cues for sequencing and safety, ADLs, PT focused on LE placement, gross overall movements, ambulation, transfers. Pt began tx supine in bed and agreeable to PT/OT cotreat. Family present for family training. Pt transferred from supine to sit and complained of dizziness. pt's vitals were taken at 131/68 for blood pressure and 95% oxygen saturation. Pt sat at EOB for rest break and asked to lay back down. OT explained benefits of staying up and showing his family what he could do, pt agreed to stay up. Pt donned shirt and pants, then stood to perform pants hike with FWW. Pt transferred from standing to w/c. Pt was given rest break before propelling self out of room and into common area. Pt propelled self around commons area with minimal cues to scan R visual field to avoid obstacles. Pt needed rest break and then stood at FWW. Pt encouraged to walk, but stated dizziness, sitting back in chair. Pt again attempted to stand to ambulate, c/o dizziness and sat back, refusing to ambul ate. Pt propelled self to therapy gym to stand at parallel bars to provide more support when standing. Pt attempted to stand once then sat down immediately. Pt was educated on standing for long periods of time for functional activity tolerance, and standing balance. Pt stood at parallel bars then took a rest break. Pt then stood again to participate in ring arch activity to increase standing dynamic balance, R side visual scanning and activity tolerance. Pt was able to complete all rings with R hand, but then sat down and stated that he had to use the restroom. Pt returned to room in w/c and transferred to [facility]. Upon finishing pt transferred to recliner with chair alarm on, with call light in reach and all needs met. Education OT Patient Education: Correct positioning, Instructions to caregiver, Modified ADL techniques, Progress toward Goal/Update tx plan, Purpose of tx/functional activities, Rehab process, Safety issues, Transfer techniques, W/C management Teaching Recipient: Patient, Family Teaching Methods: Discussion Response to Teaching: Unable to Comprehend, Reinforcement Needed OT Short Term Goals Short Term Goals Time Frame: Apr 19, 2020 Oral hygiene: 5 Toileting hygiene: 3 Shower/bathe self: 3 Upper body dressin Lower body dressin OT Long-Term Goals Long-Term Goals Time Frame: Apr 26, 2020 Eating (QC): 6 Oral Hygiene (QC): 6 Toileting Hygiene (QC): 6 Shower/Bathe Self (QC): 4 Upper Body Dressing (QC): 5 Lower Body Dressing (QC): 5 On/Off Footwear (QC): 5 Additional Goals: 1-Demonstrate ADL Tasks, 2-Verbalize Understanding, 3-Imp roveStrength/Kera 1=Demonstrate adherence to instructed precautions during ADL tasks. 2=Patient will verbalize/demonstrate understanding of assistive devices/modifications for ADL. 3=Patient will improve strength/tolerance for activity to enable patient to perform ADL's. OT Education/Plan Problem List/Assessment Assessment: Decreased Activ Tolerance, Decreased Safety Aware, Decreased UE Strength, Impaired Cognition, Impaired Coordination, Impaired Funct Balance, Impaired I ADL's, Impaired Self-Care Skills, Visual-Perceptual Deficit Discharge Recommendations Plan/Recommendations: Continue POC Treatment Plan/Plan of Care Patient would benefit from OT for education, treatment and training to promote independence in ADL's, mobility, safety and/or upper extremity function for ADL's. Plan of Care: ADL Retraining, Functional Mobility, Group Exercise/Act as Ind, UE Funct Exercise/Act, UE Neuromus Re-Ed/Coord, Visual/Perceptual Retrain, W/C Management Training Treatment Duration: Apr 26, 2020 Frequency: At least 5 of 7 days/Wk (IRF) Estimated Hrs Per Day: 1.5 hours per day Agreement: Yes Rehab Potential: Poor Time/GCodes Start Time: 09:00 Stop Time: 10:00 Total Time Billed (hr/min): 60 Billed Treatment Time 1, FA 3 (40), ADL (20) LUCILLE PACE OT Apr 12, 2020 09:57
--- NOTE | 2020-04-12 10:48 | NUR ---
CM/SS DISCHARGE PLANNING Patient's Kimberly and daughter Mitra Pulliam here today as planned for therapy observation, participation and decision-making regarding next steps. After session ended, junior technical writer met with patient, Kimberly, and Mitra, they have confirmed they wish to care for patient at home and discharge was set for Wednesday, April 15, 2020 with tack picker time of [id number]. [facility]: Reviewed Medicare Compare agencies in service area, family chose [facility]. Referral completed, agency confirmed acceptance and start of service for Wednesday. DME: Patient will need FWW, he has only a private purchase 4WW at this time. Coordinate once order received. Family to purchase tub transfer bench and BSC. Mitra will being taking FMLA from her employment at [employer]. Fabric Worker Supervisor will assist as appropriate regarding the medical attestation of patient's care needs. Finalize Wednesday. Addendum: 04/12/20 at 1342 by DIAZ MESSINA DME: Referral completed with [facility] for FWW to be delivered in advance of patient's discharge on Wednesday, 04/15. Kimberly stated she would be ordered the private pay DME online.
[2020-04-12] MEDS: INDOMETHACIN 25 MG (INDOCIN) CAP PO SCH ×3 (12:29→21:07)
--- NOTE | 2020-04-12 13:00 | Occ Therapy Progress Note ---
Therapy Progress Note OT tx attempted, pt's lunch tray in front of him but not eating any food. OT encouraged pt to eat, able to take a few bites of food, and take some drinks at moderate assist level. Pt refused any further food, and refused further tx at this time, stating he just wants to go to bed. OT encouraged pt to stay up in chair to eat more lunch and participate in OT tx. Pt adamantly refused further OT at this time. OT will attempt again later this PM. 1, refusal [phone] LUCILLE PACE OT Apr 12, 2020 13:00
--- NOTE | 2020-04-12 13:35 | Occ Therapy Progress Note ---
Therapy Progress Note OT attempted tx, pt laying in bed adamantly refusing further OT. Pt states "I just want to be left alone". OT educated pt on purpose and benefit of OT, but he still declined. Pt has refused OT tx multiple times today, OT will attempt again next available date. 1, Refusal [phone] LUCILLE PACE OT Apr 12, 2020 13:35
--- NOTE | 2020-04-12 14:34 | Physical Therapy Progress Note ---
Therapy Progress Note Patient refused therapy this afternoon. Patient states he is tired and will not participate. Patient will not get out of bed to ambulate or perform transfers or even do exercises in bed. Patient educated on the benefits of therapy but still refuses to participate. Will try again tomorrow. IVÁN DUKE PT Apr 12, 2020 14:34
--- NOTE | 2020-04-12 14:42 | NUR ---
"RD ASSESSMENT PMHx: dementia; CVA; PT INTERACTION: Pt was awake and pleasant during nutrition follow-up for LOS. Note pt has hx of dementia, per chart review. Pt states he has not been eating well since last assessment. Note avg PO intake <25% meals, per chart review. Pt states no issues with n/v/c/d since last assessment. Note last BM was 2/4, and pt currently on bowel regimen of colace BID, senna BID, and miralax BID, per chart review. Est. kcal needs: 1369-1006 kcal | 20-25 kcal/kg Est. Pro needs: 70-88 g Pro | 0.8-1.0 g Pro/kg PES STATEMENT: Inadequate oral intake (NI-2.1) related to loss of appetite, as evidenced by pt interview, and avg PO intake <25% meals, per chart review. INTERVENTION: Continue with current diet order of DYS2 Mechanically Altered diet. Continue with current supplementation order of Ensure Enlive (vary) with meals TID, for increased kcal intake. Provides 350 kcal and 20 g Pro per serving. Encouraged pt to eat when able. Will continue to follow and reassess as pt needs, intake, and status change. Magui GREEN, MS RD LD [phone] cell"
--- NOTE | 2020-04-12 15:10 | Speech Therapy Daily Note ---
Speech Daily Progress Note Subjective Date Seen by Provider: Apr 12, 2020 Time Seen by Provider: 00:30 Patient was resting in his bed when I entered his room. Patient stated his and daughter came to see him today. Objective Patient completed a series of safety awareness questions related to his return home with 80% given moderate cues and/or repetitions. Assessment Assessment Current Status: Regressing, Fair Progress Treatment Plan Continue Plan of Care Speech Short Term Goals Short Term Goals Short Term Goals 1) Patient will complete memory tasks related to his daily needs with 80% accuracy given minimal cues. 2) Patient will complete tasks safety awareness to his daily needs with 80% accuracy given minimal cues. 3) Patient will complete problem solving tasks related to his daily needs with 80% accuracy given minimal cues. 4) Patient will tolerate least restrictive diet level without s/s of aspiration at 80% with minimal cues. 5) Patient/caregiver will utilize compensatory strategies as trained at 90% with minimal cues. Speech Care Home Goals Concrete Block Mason Goals Patient will improve cognitive-communication abilities in order to complete daily tasks with decreased assistance. Patient will maintain adequate nutrition/hydration via safe effective swallow function. Speech-Plan Patient/Family Goals Patient/Family Goals: Patient should be returning to his home next week where he will have family support. Treatment Plan Speech Therapy Treatment Plan: Continue Plan of Care Treatment Duration: Apr 19, 2020 Frequency: 4 times per week (Patient will receive skilled ST 4-5x per week) Estimated Hrs Per Day: .5 hour per day Rehab Potential: Poor Barriers to Learning: Patient's medical status and unwillingness to participate Pt/Family Agrees to Plan: Yes Safety Risks/Education Teaching Recipient: Patient Teaching Methods: Demonstration, Discussion Response to Teaching: Verbalize Understanding, Return Demonstration, Reinforcement Needed Education Topics Provided: Continued safety when he returns home Time Speech Therapy Time In: 15:00 Speech Therapy Time Out: 15:30 Total Billed Time: 30 Billed Treatment Time 1[address] Apr 12, 2020 15:10
[2020-04-12 16:30] VITALS: BP 111/54
[2020-04-12] MEDS: SERTRALINE 100 MG (ZOLOFT) TAB PO SCH (21:04)
[2020-04-12] MEDS: MELATONIN 3 MG TABLET PO PRN (21:05)
[2020-04-13 05:15] VITALS: BP 113/57
[2020-04-13] MEDS: KCL 20 MEQ TAB (K-DUR) PO SCH (07:00)
[2020-04-13] MEDS: CLOPIDOGREL 75 MG (PLAVIX) TABLET PO SCH (09:47)
[2020-04-13] MEDS: ALLOPURINOL 100 MG (ZYLOPRIM) TAB PO SCH (09:48)
[2020-04-13] MEDS: CARVEDILOL 12.5 MG (COREG) TABLET PO SCH ×2 (09:48→20:59)
[2020-04-13] MEDS: APIXABAN 5 MG (ELIQUIS) TABLET PO SCH ×2 (09:48→20:59)
[2020-04-13] MEDS: INDOMETHACIN 25 MG (INDOCIN) CAP PO SCH ×3 (09:55→20:58)
--- NOTE | 2020-04-13 11:43 | Physical Therapy Progress Note ---
Therapy Progress Note Pt L side lying upon arrival. Pt refuses tx today stating, "My family is supposed to come get me in a little while. I don't want to do anything until then". SUPERVISOR MENDING advised no known DC today. SUPERVISOR MENDING encouraged ambulation and Supine/Seated Ex but pt still declined. SUPERVISOR MENDING brings written HEP for Supine & Seated Ex. Pt resting in bed with all needs met, call light in hand. CASSANDRA MATTHEWS PTA Apr 13, 2020 11:43
[2020-04-13] MEDS: SALINE NASAL SPRAY (OCEAN) 45 ML BTL SCH ×4 (11:48→21:01)
[2020-04-13] MEDS: FLUTICASONE NASAL SPRAY (FLONASE) 16 GM BTL NS SCH (11:48)
[2020-04-13] MEDS: ZINC OXIDE 16% OINT (BUTT PASTE) 57 GM TUBE TOP SCH ×2 (11:48→21:04)
[2020-04-13] MEDS: SENNA W/DOCUSATE (SENOKOT S) TABLET PO SCH ×2 (11:49→21:02)
[2020-04-13] MEDS: polyethylene glycoL POWDER 17 GM (MIRALAX) PACK PO SCH ×2 (11:49→21:02)
[2020-04-13] MEDS: DOCUSATE SODIUM 100 MG (COLACE) CAP PO SCH ×2 (11:49→21:01)
[2020-04-13] MEDS: MICONAZOLE 2% POWDER (DESENEX AF) 90 GM TOP SCH ×2 (11:50→21:00)
[2020-04-13] MEDS: ACETAMINOPHEN 325 MG TABLET PO PRN (12:19)
--- NOTE | 2020-04-13 12:48 | PM&R Progress Note ---
Subjective HPI/CC On Admission Date Seen by Provider: Apr 13, 2020 Time Seen by Provider: 13:00 Subjective/Events-last exam 04/13/20: Left foot improved he states Very difficult to motivate Patient has poor appetite Voltaren gel ordered for neck Incontinent of bowel noted DC Wednesday home with 04/12/20: Indocin and Allopurinol tolerated No bleeding issues Decreased appetite Family education today Home with [facility] Wednesday BM+ 04/11/20: Foot pain requiring brief course of Indomethacin per Dr Goodwin and I did update Cardiology regarding this since OAC and Plavix high risk for bleed but he did not respond to steroids and we have no other choice Family training tomorrow Regressed in speech overall May need skilled care Participation a bit in therapy 04/10/20: Decreasing participation so discharge planning for later this week Family education for daughter tomorrow and may need to go to skilled Not cooperating Denies any changes in his symptoms 04/09/20: Patient refusing to participate with therapy most of the time now Loose stools noted Isolated low grade fever once day O x 2 Family can help him at DC Goal is to go home and with 04/08/20: is at the bedside Hemoglobin 13.8 Potassium 2.9 started supplement Slight temperature of 37.9 Re-evaluating his swallowing Monitoring closely 04/07/20: Loose BM Sore feet Will add Hydrocodone Confusion noted 04/06/20: Left foot pain improved DC IV since it has remained in place for several days Improved transfers Not drinking much due to thickened liquids 04/05/20: Left foot pain improved No issues otherwise Walking pretty well 04/04/20: No change in the left foot pain but it does appear to be less erythema Keflex maintained and S/P steroid injection yesterday 04/03/20: Left foot continues to be an issue Slightly red so I did start him on Keflex 500 QID I did speak with Dr. Goodwin who recommended one dose of steroid to see if we can decrease the inflammation for any type of gout problem No other issues reported 04/02/20: Uric acid was elevated at 8.[address] Goodwin who ordered the test Toenail care provided Plavix and oral anticoagulants tolerated well Walked in to see him and he had taken his pants residential down his legs Depends diaper intact 04/01/20: Pt really cant walk very well today Dr. Goodwin will be in for toenail care Reports foot pain but it varies whether he reports it hurts or it doesnt Incontinence now Very confused Eliquis started along with his Plavix 03/31/20: More confused today Dr Barajas evaluated a run of atrial flutter of 160 last night for a brief moment so added Eliquis and maintained on Plavix for carotid stenosis Difficulty transferring Podiatry consult tomorrow 03/30/20: Up in chair today Incontinent now Dysphagia 2 diet tolerated Did not eat lunch Sleepy Vision changes are profound 03/29/20: Patient seems to be progressing very well Able to walk farther today Seems more alert and less confused today Outperforming with therapy today No pain reported ST working with him for swallowing and cognition Checked meds and labs Review of Systems General: Fatigue, Malaise Musculoskeletal: foot pain Neurological: Weakness Objective Exam Vital Signs Vital Signs Date Time Temp Pulse Resp B/P (MAP) Pulse Ox O2 Delivery O2 Flow Rate FiO2 04/14/20 06:00 36.4 58 17 128/69 (88) 95 Room Air Capillary Refill : General Appearance: No Apparent Distress, WD/WN, Chronically ill HEENT: PERRL/EOMI, TMs Normal, Normal ENT Inspection, Pharynx Normal Neck: Full Range of Motion, Normal Inspection, Non Tender, Supple, Carotid Bruit Respiratory: Chest Non Tender, Lungs Clear, Normal Breath Sounds, No Accessory Muscle Use, No Respiratory Distress Cardiovascular: Regular Rate, Rhythm, No Edema, No Gallop, No JVD, No Murmur, Normal Peripheral Pulses Gastrointestinal: Normal Bowel Sounds, No Organomegaly, No Pulsatile Mass, Non Tender, Soft Back: Normal Inspection, No CVA Tenderness, No Vertebral Tenderness Extremity: Normal Capillary Refill, Normal Inspection, Normal Range of Motion, Non Tender, No Calf Tenderness, No Pedal Edema Neurologic/Psychiatric: Alert, Normal Mood/Affect, 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 FIM Transfers Therapy Code Descriptions/Definitions Functional [place] Measure: 0=Not Assessed/NA 4=Minimal Assistance 1=Total Assistance 5=Supervision or Setup 2=Maximal Assistance 6=Modified [place] 3=Moderate Assistance 7=Complete IndependenceSCALE: Activities may be completed with or without assistive devices. 4-Bcvawiynnr-tlhnjvh completes the activity by him/herself with no assistance from a helper. 5-Set-up or Clean-up Assistance-helper sets up or cleans up; patient completes activity. [place] assists only prior to or following the activity. 4-Supervision or Touching Assistance-helper provides verbal cues and/or touching/steadying and/or contact guard assistance as patient completes activity. Assistance may be provided throughout the activity or intermittently. 3-Partial/Moderate Assistance-helper does LESS THAN HALF the effort. [place] lifts, holds or supports trunk or limbs, but provides less than half the effort. 2-Substantial/Maximal Assistance-helper does MORE THAN HALF the effort. [place] lifts or holds trunk or limbs and provides more than half the effort. 9-Jdihetdjv-bqqndm does ALL the effort. Patient does none of the effort to complete the activity. Or, the assistance of 2 or more helpers is required for the patient to complete the activity. If activity was not attempted, code reason: 7-Patient Refused. 9-Not Applicable-not attempted and the patient did not perform the activity before the current illness, exacerbation or injury. 10-Not Attempted due to Environmental Limitations-(lack of equipment, weather restraints, etc.). 88-Not Attempted due to Medical Conditions or Safety Concerns. Roll Left to Right (QC): 6 Sit to Lying (QC): 6 Sit to Stand (QC): 3 Chair/Fdz-nq-Scckl Xfer(QC): 3 Car Transfer (QC): 7 Gait Training Does the Patient Walk?: Yes Distance: 10'x2 Walk 10 feet (QC): 3 Walk 50 ft with 2 Turns(QC): 7 Walk 150 ft (QC): 7 Walking 10ft/uneven surface-QC: 7 Gait Persons Needed: 1 Gait Assistive Device: FWW Wheelchair Training Does the Pt Use a Wheelchair?: Yes Wheel 50 ft with 2 turns (QC): 4 Wheel 150 ft (QC): 7 Type of Wheelchair: Manual Stair Training 1 Step (curb) (QC): 7 4 Steps (QC): 7 12 Steps (QC): 7 Balance Picking up an Object (QC): 7 ADL-Treatment Eating (QC): 3 (Min A with task. Pt required moderate cues and max encouragement to eat.) Oral Hygiene (QC): 3 (Trudi, pt required cues to clean gums and tongue using oral swab) Bathing Location: L Arm, R Arm, L Upper Leg, R Upper Leg, Chest, Abdomen, Perineal Area Shower/Bathe Self (QC): 1 (Pt required max cues to wash body parts thoroughly. Assistance to wash lower legs and feet. Assist x2 to wash buttocks ) Upper Body Dressing (QC): 5 (Set up) Lower Body Dressing (QC): 1 (Pt able to thread pants with moderate assistance over legs and assist x2 for standing to perform pants hike) On/Off Footwear (QC): 1 (Dependent. Pt refused to complete any part.) Toileting Hygiene (QC): 1 (Assist x2 to perform pants hike while standing and hygiene) Toilet Transfer (QC): 2 (MaxA, pt required cues to stand up all the way and to position self over seat.) Assessment/Plan Assessment and Plan Assess & Plan/Chief Complaint Assessment: s/p acute ischemic stroke Bilateral carotid stenosis has f/u [address] Sanders CTA revealed bilateral carotid stenosis >70%, chronically occluded right vertebral artery, left vertebral artery stenosis >70% Vertebral artery stenosis/occlusion Impaired vision in both eyes Dementia 03/06 SLUMS HTN HLD DVT prophylaxis: Lovenox Chronic debility and non-ambulatory for 2 years per Atrial flutter noted on Tely 03/30/20 at 160 HR briefly so starte don OAC 03/31/20 Left foot pain cellulitis vs. gout? Keflex and Solumedrol initiated 04/03/20 Plan: IRF protocol Wheelchair bound at home Statin Monitor closely 03/29/20: Able to ambulate a lot more today Feels good about progress ST to help with swallowing 03/30/20: Advanced diet Incontinence care Vision issues 03/31/20: Added OAC to Plavix for atrial flutter run on Tely last night and reviewed by Dr Barajas Confusion monitoring 04/01/20: Podiatry appreciated Monitor BP OAC and Plavix required 04/02/20: Monitor confusion Continue aggressive therapy OAC and Plavix 04/03/20: Left foot gout versus cellulitis 04/03/20 Monitor closely 1 dose of steroids should not place him at risk for bleeding 04/04/20: Monitor left foot Monitor BP 04/05/20: Improved left foot pain Monitor for falls 04/06/20: ST to hopefully increase to thin liquids Wednesday Monitor left foot 04/07/20: Monitor closely Hydrocodone Check labs in am 04/08/20: Labs stable Monitor isolated low grade fever Continue treatment 04/09/20: Participation monitoring Monitor pain 04/10/20: Family training May need skilled care 04/11/20: Indomethacin for left foot pain then Allopurinol High risk for bleed on NSAID's and updated Cardiology but only brief time 04/12/20: HHC on Wednesday Gout treatment 04/13/20: Improved status Motivation is very low DC Wednesday (1) 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 Status: Acute (2) Carotid stenosis, bilateral Status: Acute (3) Right homonymous hemianopsia due to recent cerebral infarction Status: Acute (4) Vertebral artery stenosis/occlusion Status: Acute (5) Impaired vision in both eyes Status: Acute (6) HLD (hyperlipidemia) Status: Acute (7) HTN (hypertension) Status: Acute AYALA PARKS DO Apr 13, 2020 12:48
--- NOTE | 2020-04-13 15:36 | NUR ---
Have spoke to Pharmacist, Will re: Indomethacin not scanning both times today.
[2020-04-13 16:23] VITALS: BP 98/51
[2020-04-13] MEDS: SALINE NASAL SPRAY (OCEAN) 45 ML BTL PRN (17:18)
[2020-04-13] MEDS: MELATONIN 3 MG TABLET PO PRN (20:59)
[2020-04-13] MEDS: SERTRALINE 100 MG (ZOLOFT) TAB PO SCH (21:05)
[2020-04-14 06:00] VITALS: BP 128/69
[2020-04-14] MEDS: KCL 20 MEQ TAB (K-DUR) PO SCH (06:45)
--- NOTE | 2020-04-14 07:08 | PM&R Progress Note ---
Subjective HPI/CC On Admission Date Seen by Provider: Apr 14, 2020 Time Seen by Provider: 13:00 Subjective/Events-last exam 04/14/20: Set for DC tomorrow Speaking more clearly and more visited today Incontinent of BM and loose so will stop laxatives Refused therapy Wednesday04/13/20: Left foot improved he states Very difficult to motivate Patient has poor appetite Voltaren gel ordered for neck Incontinent of bowel noted DC Wednesday home with 04/12/20: Indocin and Allopurinol tolerated No bleeding issues Decreased appetite Family education today Home with [facility] Wednesday BM+ 04/11/20: Foot pain requiring brief course of Indomethacin per Dr Goodwin and I did update Cardiology regarding this since OAC and Plavix high risk for bleed but he did not respond to steroids and we have no other choice Family training tomorrow Regressed in speech overall May need skilled care Participation a bit in therapy 04/10/20: Decreasing participation so discharge planning for later this week Family education for daughter tomorrow and may need to go to skilled Not cooperating Denies any changes in his symptoms 04/09/20: Patient refusing to participate with therapy most of the time now Loose stools noted Isolated low grade fever once day O x 2 Family can help him at DC Goal is to go home and with 04/08/20: is at the bedside Hemoglobin 13.8 Potassium 2.9 started supplement Slight temperature of 37.9 Re-evaluating his swallowing Monitoring closely 04/07/20: Loose BM Sore feet Will add Hydrocodone Confusion noted 04/06/20: Left foot pain improved DC IV since it has remained in place for several days Improved transfers Not drinking much due to thickened liquids 04/05/20: Left foot pain improved No issues otherwise Walking pretty well 04/04/20: No change in the left foot pain but it does appear to be less erythema Keflex maintained and S/P steroid injection yesterday 04/03/20: Left foot continues to be an issue Slightly red so I did start him on Keflex 500 QID I did speak with Dr. Goodwin who recommended one dose of steroid to see if we can decrease the inflammation for any type of gout problem No other issues reported 04/02/20: Uric acid was elevated at 8.[address] Goodwin who ordered the test Toenail care provided Plavix and oral anticoagulants tolerated well Walked in to see him and he had taken his pants care home down his legs Depends diaper intact 04/01/20: Pt really cant walk very well today Dr. Goodwin will be in for toenail care Reports foot pain but it varies whether he reports it hurts or it doesnt Incontinence now Very confused Eliquis started along with his Plavix 03/31/20: More confused today Dr Barajas evaluated a run of atrial flutter of 160 last night for a brief moment so added Eliquis and maintained on Plavix for carotid stenosis Difficulty transferring Podiatry consult tomorrow 03/30/20: Up in chair today Incontinent now Dysphagia 2 diet tolerated Did not eat lunch Sleepy Vision changes are profound 03/29/20: Patient seems to be progressing very well Able to walk farther today Seems more alert and less confused today Outperforming with therapy today No pain reported ST working with him for swallowing and cognition Checked meds and labs Review of Systems General: Fatigue, Malaise Neurological: Change in speech, Confusion Objective Exam Vital Signs Vital Signs Date Time Temp Pulse Resp B/P (MAP) Pulse Ox O2 Delivery O2 Flow Rate FiO2 04/14/20 18:07 36.4 58 20 130/63 (85) 96 Room Air Capillary Refill : General Appearance: No Apparent Distress, WD/WN, Chronically ill HEENT: PERRL/EOMI, TMs Normal, Normal ENT Inspection, Pharynx Normal Neck: Full Range of Motion, Normal Inspection, Non Tender, Supple, Carotid Bruit Respiratory: Chest Non Tender, Lungs Clear, Normal Breath Sounds, No Accessory Muscle Use, No Respiratory Distress Cardiovascular: Regular Rate, Rhythm, No Edema, No Gallop, No JVD, No Murmur, Normal Peripheral Pulses Gastrointestinal: Normal Bowel Sounds, No Organomegaly, No Pulsatile Mass, Non Tender, Soft Back: Normal Inspection, No CVA Tenderness, No Vertebral Tenderness Extremity: Normal Capillary Refill, Normal Inspection, Normal Range of Motion, Non Tender, No Calf Tenderness, No Pedal Edema Neurologic/Psychiatric: Alert, Normal Mood/Affect, 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 FIM Transfers Therapy Code Descriptions/Definitions Functional [place] Measure: 0=Not Assessed/NA 4=Minimal Assistance 1=Total Assistance 5=Supervision or Setup 2=Maximal Assistance 6=Modified [place] 3=Moderate Assistance 7=Complete IndependenceSCALE: Activities may be completed with or without assistive devices. 2-Fhrsxszmkj-ctoknvj completes the activity by him/herself with no assistance from a helper. 5-Set-up or Clean-up Assistance-helper sets up or cleans up; patient completes activity. [place] assists only prior to or following the activity. 4-Supervision or Touching Assistance-helper provides verbal cues and/or to uching/steadying and/or contact guard assistance as patient completes activity. Assistance may be provided throughout the activity or intermittently. 3-Partial/Moderate Assistance-helper does LESS THAN HALF the effort. [place] lifts, holds or supports trunk or limbs, but provides less than half the effort. 2-Substantial/Maximal Assistance-helper does MORE THAN HALF the effort. [place] lifts or holds trunk or limbs and provides more than half the effort. 5-Jsovytaso-qncjup does ALL the effort. Patient does none of the effort to complete the activity. Or, the assistance of 2 or more helpers is required for the patient to complete the activity. If activity was not attempted, code reason: 7-Patient Refused. 9-Not Applicable-not attempted and the patient did not perform the activity before the current illness, exacerbation or injury. 10-Not Attempted due to Environmental Limitations-(lack of equipment, weather restraints, etc.). 88-Not Attempted due to Medical Conditions or Safety Concerns. Roll Left to Right (QC): 6 Sit to Lying (QC): 6 Sit to Stand (QC): 3 Chair/Plz-ur-Qeswq Xfer(QC): 3 Car Transfer (QC): 7 Gait Training Does the Patient Walk?: Yes Distance: 10'x2 Walk 10 feet (QC): 3 Walk 50 ft with 2 Turns(QC): 7 Walk 150 ft (QC): 7 Walking 10ft/uneven surface-QC: 7 Gait Persons Needed: 1 Gait Assistive Device: FWW Wheelchair Training Does the Pt Use a Wheelchair?: Yes Wheel 50 ft with 2 turns (QC): 4 Wheel 150 ft (QC): 7 Type of Wheelchair: Manual Stair Training 1 Step (curb) (QC): 7 4 Steps (QC): 7 12 Steps (QC): 7 Balance Picking up an Object (QC): 7 ADL-Treatment Eating (QC): 3 (Min A with task. Pt required moderate cues and max encouragement to eat.) Oral Hygiene (QC): 3 (Trudi, pt required cues to clean gums and tongue using oral swab) Bathing Location: L Arm, R Arm, L Upper Leg, R Upper Leg, Chest, Abdomen, Perineal Area Shower/Bathe Self (QC): 1 (Pt required max cues to wash body parts thoroughly. Assistance to wash lower legs and feet. Assist x2 to wash buttocks ) Upper Body Dressing (QC): 5 (Set up) Lower Body Dressing (QC): 1 (Pt able to thread pants with moderate assistance over legs and assist x2 for standing to perform pants hike) On/Off Footwear (QC): 1 (Dependent. Pt refused to complete any part.) Toileting Hygiene (QC): 1 (Assist x2 to perform pants hike while standing and hygiene) Toilet Transfer (QC): 2 (MaxA, pt required cues to stand up all the way and to position self over seat.) Assessment/Plan Assessment and Plan Assess & Plan/Chief Complaint Assessment: s/p acute ischemic stroke Bilateral carotid stenosis has f/u [address] Sanders CTA revealed bilateral carotid stenosis >70%, chronically occluded right vertebral artery, left vertebral artery stenosis >70% Vertebral artery stenosis/occlusion Impaired vision in both eyes Dementia 03/06 SLUMS HTN HLD DVT prophylaxis: Lovenox Chronic debility and non-ambulatory for 2 years per Atrial flutter noted on Tely 03/30/20 at 160 HR briefly so starte don OAC 03/31/20 Left foot pain cellulitis vs. gout? Keflex and Solumedrol initiated 04/03/20 Plan: IRF protocol Wheelchair bound at home Statin Monitor closely 03/29/20: Able to ambulate a lot more today Feels good about progress ST to help with swallowing 03/30/20: Advanced diet Incontinence care Vision issues 03/31/20: Added OAC to Plavix for atrial flutter run on Tely last night and reviewed by Dr Barajas Confusion monitoring 04/01/20: Podiatry appreciated Monitor BP OAC and Plavix required 04/02/20: Monitor confusion Continue aggressive therapy OAC and Plavix 04/03/20: Left foot gout versus cellulitis 04/03/20 Monitor closely 1 dose of steroids should not place him at risk for bleeding 04/04/20: Monitor left foot Monitor BP 04/05/20: Improved left foot pain Monitor for falls 04/06/20: ST to hopefully increase to thin liquids Wednesday Monitor left foot 04/07/20: Monitor closely Hydrocodone Check labs in am 04/08/20: Labs stable Monitor isolated low grade fever Continue treatment 04/09/20: Participation monitoring Monitor pain 04/10/20: Family training May need skilled care 04/11/20: Indomethacin for left foot pain then Allopurinol High risk for bleed on NSAID's and updated Cardiology but only brief time 04/12/20: C on Wednesday Gout treatment 04/13/20: Improved status Motivation is very low DC Wednesday04/14/20: Left foot improved Check labs in am Monitor closely DC tomorrow (1) 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 Status: Acute (2) Carotid stenosis, bilateral Status: Acute (3) Right homonymous hemianopsia due to recent cerebral infarction Status: Acute (4) Vertebral artery stenosis/occlusion Status: Acute (5) Impaired vision in both eyes Status: Acute (6) HLD (hyperlipidemia) Status: Acute (7) HTN (hypertension) Status: Acute AYALA PARKS DO Apr 14, 2020 07:07
[2020-04-14] MEDS: ALLOPURINOL 100 MG (ZYLOPRIM) TAB PO SCH (08:43)
[2020-04-14] MEDS: CARVEDILOL 12.5 MG (COREG) TABLET PO SCH ×2 (08:43→20:57)
[2020-04-14] MEDS: CLOPIDOGREL 75 MG (PLAVIX) TABLET PO SCH (08:43)
[2020-04-14] MEDS: INDOMETHACIN 25 MG (INDOCIN) CAP PO SCH ×2 (08:45→20:57)
[2020-04-14] MEDS: SALINE NASAL SPRAY (OCEAN) 45 ML BTL PRN (08:47)
[2020-04-14] MEDS: FLUTICASONE NASAL SPRAY (FLONASE) 16 GM BTL NS SCH (08:48)
[2020-04-14] MEDS: SALINE NASAL SPRAY (OCEAN) 45 ML BTL SCH ×4 (08:49→20:56)
[2020-04-14] MEDS: ZINC OXIDE 16% OINT (BUTT PASTE) 57 GM TUBE TOP SCH ×2 (08:49→20:58)
[2020-04-14] MEDS: MICONAZOLE 2% POWDER (DESENEX AF) 90 GM TOP SCH ×2 (08:49→20:58)
[2020-04-14] MEDS: SENNA W/DOCUSATE (SENOKOT S) TABLET PO SCH (08:50)
[2020-04-14] MEDS: DOCUSATE SODIUM 100 MG (COLACE) CAP PO SCH (08:50)
[2020-04-14] MEDS: polyethylene glycoL POWDER 17 GM (MIRALAX) PACK PO SCH ×2 (08:50→21:00)
[2020-04-14] MEDS: APIXABAN 5 MG (ELIQUIS) TABLET PO SCH ×2 (08:56→20:57)
--- NOTE | 2020-04-14 14:15 | NUR ---
APPLIED ALLEVYN PATCH TO LT HIP SKIN PROTECTANT. PT HAS ADAMANTLY REFUSED TO SIT UP IN CHAIR SO FAR TODAY. PT DOES TURN HIMSELF INDEPENDENTLY SIDE TO SIDE IN BED, & DOES SCOOT HIMSELF UP IN THE BED. ASKED PT IF HE KNEW WHEN HE HAD TO URINATE ? PT STATED, "YES, BUT, IT'S TOO LATE BY THEN, WHEN I FEEL THE URGE, I'VE ALREADY STARTED TO GO."
[2020-04-14 18:07] VITALS: BP 130/63
[2020-04-14] MEDS ORDERED: SENNA W/DOCUSATE (SENOKOT S) TABLET PO PRN (18:45)
[2020-04-14] MEDS ORDERED: DOCUSATE SODIUM 100 MG (COLACE) CAP PO PRN (18:45)
[2020-04-14] MEDS ORDERED: DICLOFENAC 1% GEL 100 GM (VOLTAREN) TUBE TOP PRN (18:45)
--- NOTE | 2020-04-14 18:48 | NUR ---
CHANGED SCHEDULED STOOL SOFTENERS/LAXATIVES TO PRN ORDERED BY DR. PARKS, SINCE PT HAS HAD LOOSE STOOLS, & VOLTAREN GEL ORDERED BY DR. PARKS FOR NECK & GENERALIZED PAIN.
[2020-04-14] MEDS: MELATONIN 3 MG TABLET PO PRN (20:56)
[2020-04-14] MEDS: ACETAMINOPHEN 325 MG TABLET PO PRN (20:57)
[2020-04-14] MEDS: SERTRALINE 100 MG (ZOLOFT) TAB PO SCH (20:57)
[2020-04-14] MEDS ORDERED: INDOMETHACIN 25 MG (INDOCIN) CAP PO SCH (21:00)
[2020-04-15] MEDS ORDERED: APIX5TAB PO (05:44)
[2020-04-15] MEDS ORDERED: ALLO100T PO (05:44)
[2020-04-15] MEDS ORDERED: ATOR80TA76 PO (05:44)
[2020-04-15] MEDS ORDERED: FLUT16SP22 NS (05:44)
[2020-04-15] MEDS ORDERED: ACHD5005 PO (05:44)
[2020-04-15] MEDS ORDERED: SODI44SP2 (05:44)
[2020-04-15] MEDS ORDERED: SERT100T8 PO (05:44)
[2020-04-15] MEDS ORDERED: POTA20TA8 PO (05:44)
[2020-04-15] MEDS ORDERED: CLOP75TA69 PO (05:44)
[2020-04-15] MEDS ORDERED: CARV12.52 PO (05:44)
--- NOTE | 2020-04-15 05:45 | D/C HH Face to Face Order ---
D/C Face to Face Orders Reconcile Patient Problems Problems Reviewed?: Yes Instructions for Patient Home Health Patient Instructions/FollowUp: PCP [address] Sanchez to [facility] Physician to follow Patient: Laura Discharge Diet for Home: Cardiac Diet Patient Problems: CVA Patient Data-Allergies,Ht & Wt Patient Allergies: Coded Allergies: Penicillins (Unverified Allergy, Intermediate, RASH, 02/08/06) codeine (Unverified Allergy, Intermediate, RASH, 02/08/06) Home Health Need/Face to Face Date of Face to Face: Apr 15, 2020 Clinical Findings: Generalized weakness and fatigue, Instability, Muscle weakness, Unsteady gait I have seen Pt [id number]: Yes Discharged To: Home Diagnosis/Conditions: CVA Patient is Homebound due to: CognItive deficits, Lupe fall risk due to insta bilty, Muscle weakness Homebound Status Due to the above stated illness, injury or surgical procedure (medical condition or diagnosis) and associated clinical findings, the patient is homebound because of his/her inability to leave home except with aid of a supportive device and/or person AND leaving the home requires a considerable and taxing effort or is medically contraindicated. Pt req the following assistanc: Walker Home Health Nursing Orders Home Health Services Order: Nursing Services, Food Production Supervisor-Evaluate & Treat, Physical Therapy-Evaluate & Treat Certify Stmt I certify that this patient is under my care and that I, a nurse practitioner or a physician; a law office assistant working with me, had a face to face encounter that - meets the physician face to face encounter requirements with this patient as dated. AYALA PARKS DO Apr 15, 2020 05:45
--- NOTE | 2020-04-15 05:46 | Discharge Summary ---
Diagnosis/Chief Complaint Date of Admission Mar 28, 2020 at 10:50 Date of Discharge Discharge Date: Apr 15, 2020 Discharge Diagnosis Assessment: s/p acute ischemic stroke Bilateral carotid stenosis has f/u [address] Sanders CTA revealed bilateral carotid stenosis >70%, chronically occluded right vertebral artery, left vertebral artery stenosis >70% Vertebral artery stenosis/occlusion Impaired vision in both eyes Dementia 03/06 SLUMS HTN HLD DVT prophylaxis: Lovenox Chronic debility and non-ambulatory for 2 years per Atrial flutter noted on Tely 03/30/20 at 160 HR briefly so starte don OAC 03/31/20 Left foot pain cellulitis vs. gout? Keflex and Solumedrol initiated 04/03/20 Plan: IRF protocol Wheelchair bound at home Statin Monitor closely 03/29/20: Able to ambulate a lot more today Feels good about progress ST to help with swallowing 03/30/20: Advanced diet Incontinence care Vision issues 03/31/20: Added OAC to Plavix for atrial flutter run on Tely last night and reviewed by Dr Barajas Confusion monitoring 04/01/20: Podiatry appreciated Monitor BP OAC and Plavix required 04/02/20: Monitor confusion Continue aggressive therapy OAC and Plavix 04/03/20: Left foot gout versus cellulitis 04/03/20 Monitor closely 1 dose of steroids should not place him at risk for bleeding 04/04/20: Monitor left foot Monitor BP 04/05/20: Improved left foot pain Monitor for falls 04/06/20: ST to hopefully increase to thin liquids Wednesday Monitor left foot 04/07/20: Monitor closely Hydrocodone Check labs in am 04/08/20: Labs stable Monitor isolated low grade fever Continue treatment 04/09/20: Participation monitoring Monitor pain 04/10/20: Family training May need skilled care 04/11/20: Indomethacin for left foot pain then Allopurinol High risk for bleed on NSAID's and updated Cardiology but only brief time 04/12/20: [facility] on Wednesday Gout treatment 04/13/20: Improved status Motivation is very low DC Wednesday04/14/20: Left foot improved Check labs in am Monitor closely DC tomorrow (1) 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 Status: Acute (2) Carotid stenosis, bilateral Status: Acute (3) Right homonymous hemianopsia due to recent cerebral infarction Status: Acute (4) Vertebral artery stenosis/occlusion Status: Acute (5) Impaired vision in both eyes Status: Acute (6) HLD (hyperlipidemia) Status: Acute (7) HTN (hypertension) Status: Acute Discharge Summary Discharge Physical Examination Allergies: Coded Allergies: Penicillins (Unverified Allergy, Intermediate, RASH, 02/08/06) codeine (Unverified Allergy, Intermediate, RASH, 02/08/06) Vitals & I&Os Vital Signs Date Time Temp Pulse Resp B/P (MAP) Pulse Ox O2 Delivery O2 Flow Rate FiO2 04/15/20 10:45 36.6 57 19 122/64 94 Room Air General Appearance: Alert, Cooperative Respiratory: Clear to Auscultation Cardiovascular: Regular Rate Hospital Course Was the Problem List Reviewed?: Yes Hospital course: Pt had a lengthy hospital course, he was able to participate in therapy when he was in the mood, he had a long standing history of bed-bound status and lack of motivation at home. Overall he was able to be maintained on Plavix and oral anticoagulation of which he was discharged on. He will have close follow-up for B/L carotid endarterectomy by Dr. Sanders and will have home health, PT and OT consulted and establish at Dr. Sanchez for his care. Labs (last 24 hrs) Laboratory Tests 03/29/20 05:25: White Blood Count 11.1H, Red Blood Count 4.53, Hemoglobin 15.4, Hematocrit 47, Mean Corpuscular Volume 104H, Mean Corpuscular Hemoglobin 34, Mean Corpuscular Hemoglobin Concent 33, Red Cell Distribution Width 12.2, Platelet Count 219, Mean Platelet Volume 11.1, Immature Granulocyte % (Auto) 1, Neutrophils (%) (Auto) 64, Lymphocytes (%) (Auto) 21, Monocytes (%) (Auto) 13H, Eosinophils (%) (Auto) 1, Basophils (%) (Auto) 1, Neutrophils # (Auto) 7.1, Lymphocytes # (Auto) 2.3, Monocytes # (Auto) 1.4H, Eosinophils # (Auto) 0.1, Basophils # (Auto) 0.1, Immature Granulocyte # (Auto) 0.1, Sodium Level 142, Potassium Level 3.6, Chloride Level 106, Carbon Dioxide Level 22, Anion Gap 14, Blood Urea Nitrogen 28H, Creatinine 0.85, Estimat Glomerular Filtration Rate > 60, BUN/Creatinine Ratio 33, Glucose Level 123H, Calcium Level 9.3, Corrected Calcium 9.2, Total Bilirubin 1.0, Aspartate Amino Transf (AST/SGOT) 30, Alanine Aminotransferase (ALT/SGPT) 29, Alkaline Phosphatase 59, Total Protein 7.5, Albumin 4.1 04/01/20 04:30: White Blood Count 12.8H, Red Blood Count 4.34, Hemoglobin 14.8, Hematocrit 44, Mean Corpuscular Volume 101H, Mean Corpuscular Hemoglobin 34, Mean Corpuscular Hemoglobin Concent 34, Red Cell Distribution Width 11.6, Platelet Count 192, Mean Platelet Volume 11.7, Immature Granulocyte % (Auto) 1, Neutrophils (%) (Auto) 64, Lymphocytes (%) (Auto) 17, Monocytes (%) (Auto) 18H, Eosinophils (%) (Auto) 0, Basophils (%) (Auto) 0, Neutrophils # (Auto) 8.2H, Lymphocytes # (Auto) 2.1, Monocytes # (Auto) 2.3H, Eosinophils # (Auto) 0.0, Basophils # (Auto) 0.0, Immature Granulocyte # (Auto) 0.1, Sodium Level 138, Potassium Level 3.3L, Chloride Level 102, Carbon Dioxide Level 21, Anion Gap 15H, Blood Urea Nitrogen 22H, Creatinine 0.92, Estimat Glomerular Filtration Rate > 60, BUN/Creatinine Ratio 24, Glucose Level 117H, Calcium Level 9.2, Corrected Calcium 9.2, Total Bilirubin 1.4H, Aspartate Amino Transf (AST/SGOT) 27, Alanine Aminotransferase (ALT/SGPT) 22, Alkaline Phosphatase 65, Total Protein 7.3, Albumin 4.0 04/01/20 18:10: White Blood Count 12.9H, Red Blood Count 4.24L, Hemoglobin 14.5, Hematocrit 43, Mean Corpuscular Volume 101H, Mean Corpuscular Hemoglobin 34, Mean Corpuscular Hemoglobin Concent 34, Red Cell Distribution Width 11.8, Platelet Count 224, Mean Platelet Volume 11.4, Immature Granulocyte % (Auto) 0, Neutrophils (%) (Auto) 71, Lymphocytes (%) (Auto) 12, Monocytes (%) (Auto) 16H, Eosinophils (%) (Auto) 0, Basophils (%) (Auto) 0, Neutrophils # (Auto) 9.1H, Lymphocytes # (Auto) 1.6, Monocytes # (Auto) 2.1H, Eosinophils # (Auto) 0.0, Basophils # (Auto) 0.0, Immature Granulocyte # (Auto) 0.1, Uric Acid 8.5H 04/08/20 04:12: White Blood Count 13.8H, Red Blood Count 3.82L, Hemoglobin 13.0L, Hematocrit 38L , Mean Corpuscular Volume 100H, Mean Corpuscular Hemoglobin 34, Mean Corpuscular Hemoglobin Concent 34, Red Cell Distribution Width 11.4, Platelet Count 345, Mean Platelet Volume 11.4, Immature Granulocyte % (Auto) 1, Neutrophils (%) (Auto) 72, Lymphocytes (%) (Auto) 12, Monocytes (%) (Auto) 14H, Eosinophils (%) (Auto) 1, Basophils (%) (Auto) 0, Neutrophils # (Auto) 9.9H, Lymphocytes # (Auto) 1.6, Monocytes # (Auto) 1.9H, Eosinophils # (Auto) 0.2, Basophils # (Auto) 0.1, Immature Granulocyte # (Auto) 0.1, Sodium Level 140, Potassium Level 2.9L, Chloride Level 102, Carbon Dioxide Level 24, Anion Gap 14, Blood Urea Nitrogen 14, Creatinine 0.84, Estimat Glomerular Filtration Rate > 60, BUN/Creatinine Ratio 17, Glucose Level 133H, Calcium Level 9.0, Corrected Calcium 9.6, Total Bilirubin 0.8, Aspartate Amino Transf (AST/SGOT) 26, Alanine Aminotransferase (ALT/SGPT) 25, Alkaline Phosphatase 67, Total Protein 6.9, Albumin 3.3 04/15/20 05:16: White Blood Count 8.3, Red Blood Count 3.74L, Hemoglobin 12.4L, Hematocrit 37L, Mean Corpuscular Volume 99, Mean Corpuscular Hemoglobin 33, Mean Corpuscular Hemoglobin Concent 33, Red Cell Distribution Width 11.3, Platelet Count 391, Mean Platelet Volume 10.4, Immature Granulocyte % (Auto) 1, Neutrophils (%) (Auto) 62, Lymphocytes (%) (Auto) 22, Monocytes (%) (Auto) 12, Eosinophils (%) (Auto) 2, Basophils (%) (Auto) 1, Neutrophils # (Auto) 5.2, Lymphocytes # (Auto) 1.8, Monocytes # (Auto) 1.0, Eosinophils # (Auto) 0.2, Basophils # (Auto) 0.0, Immature Granulocyte # (Auto) 0.1, Sodium Level 139, Potassium Level 3.3L, Chloride Level 103, Carbon Dioxide Level 24, Anion Gap 12, Blood Urea Nitrogen 15, Creatinine 0.76, Estimat Glomerular Filtration Rate > 60, BUN/Creatinine Ratio 20, Glucose Level 127H, Glucometer 133H, Calcium Level 8.9, Corrected Calcium 9.6, Total Bilirubin 0.4, Aspartate Amino Transf (AST/SGOT) 34, Alanine Aminotransferase (ALT/SGPT) 30, Alkaline Phosphatase 86, Total Protein 6.8, Albumin 3.1L Pending Labs Laboratory Tests 03/29/20 05:25: White Blood Count 11.1, Red Blood Count 4.53, Hemoglobin 15.4, Hematocrit 47, Mean Corpuscular Volume 104, Mean Corpuscular Hemoglobin 34, Mean Corpuscular He moglobin Concent 33, Red Cell Distribution Width 12.2, Platelet Count 219, Mean Platelet Volume 11.1, Immature Granulocyte % (Auto) 1, Neutrophils (%) (Auto) 64, Lymphocytes (%) (Auto) 21, Monocytes (%) (Auto) 13, Eosinophils (%) (Auto) 1, Basophils (%) (Auto) 1, Neutrophils # (Auto) 7.1, Lymphocytes # (Auto) 2.3, Monocytes # (Auto) 1.4, Eosinophils # (Auto) 0.1, Basophils # (Auto) 0.1, Immature Granulocyte # (Auto) 0.1, Sodium Level 142, Potassium Level 3.6, Chloride Level 106, Carbon Dioxide Level 22, Anion Gap 14, Blood Urea Nitrogen 28, Creatinine 0.85, Estimat Glomerular Filtration Rate > 60, BUN/Creatinine Ratio 33, Glucose Level 123, Calcium Level 9.3, Corrected Calcium 9.2, Total Bilirubin 1.0, Aspartate Amino Transf (AST/SGOT) 30, Alanine Aminotransferase (ALT/SGPT) 29, Alkaline Phosphatase 59, Total Protein 7.5, Albumin 4.1 04/01/20 04:30: White Blood Count 12.8, Red Blood Count 4.34, Hemoglobin 14.8, Hematocrit 44, Mean Corpuscular Volume 101, Mean Corpuscular Hemoglobin 34, Mean Corpuscular Hemoglobin Concent 34, Red Cell Distribution Width 11.6, Platelet Count 192, Mean Platelet Volume 11.7, Immature Granulocyte % (Auto) 1, Neutrophils (%) (Auto) 64, Lymphocytes (%) (Auto) 17, Monocytes (%) (Auto) 18, Eosinophils (%) (Auto) 0, Basophils (%) (Auto) 0, Neutrophils # (Auto) 8.2, Lymphocytes # (Auto) 2.1, Monocytes # (Auto) 2.3, Eosinophils # (Auto) 0.0, Basophils # (Auto) 0.0, Immature Granulocyte # (Auto) 0.1, Sodium Level 138, Potassium Level 3.3, Chloride Level 102, Carbon Dioxide Level 21, Anion Gap 15, Blood Urea Nitrogen 22, Creatinine 0.92, Estimat Glomerular Filtration Rate > 60, BUN/Creatinine Rat io 24, Glucose Level 117, Calcium Level 9.2, Corrected Calcium 9.2, Total Bilirubin 1.4, Aspartate Amino Transf (AST/SGOT) 27, Alanine Aminotransferase (ALT/SGPT) 22, Alkaline Phosphatase 65, Total Protein 7.3, Albumin 4.0 04/01/20 18:10: White Blood Count 12.9, Red Blood Count 4.24, Hemoglobin 14.5, Hematocrit 43, Mean Corpuscular Volume 101, Mean Corpuscular Hemoglobin 34, Mean Corpuscular Hemoglobin Concent 34, Red Cell Distribution Width 11.8, Platelet Count 224, Mean Platelet Volume 11.4, Immature Granulocyte % (Auto) 0, Neutrophils (%) (Auto) 71, Lymphocytes (%) (Auto) 12, Monocytes (%) (Auto) 16, Eosinophils (%) (Auto) 0, Basophils (%) (Auto) 0, Neutrophils # (Auto) 9.1, Lymphocytes # (Auto) 1.6, Monocytes # (Auto) 2.1, Eosinophils # (Auto) 0.0, Basophils # (Auto) 0.0, Immature Granulocyte # (Auto) 0.1, Uric Acid 8.5 04/08/20 04:12: White Blood Count 13.8, Red Blood Count 3.82, Hemoglobin 13.0, Hematocrit 38, Mean Corpuscular Volume 100, Mean Corpuscular Hemoglobin 34, Mean Corpuscular Hemoglobin Concent 34, Red Cell Distribution Width 11.4, Platelet Count 345, Mean Platelet Volume 11.4, Immature Granulocyte % (Auto) 1, Neutrophils (%) (Auto) 72, Lymphocytes (%) (Auto) 12, Monocytes (%) (Auto) 14, Eosinophils (%) (Auto) 1, Basophils (%) (Auto) 0, Neutrophils # (Auto) 9.9, Lymphocytes # (Auto) 1.6, Monocytes # (Auto) 1.9, Eosinophils # (Auto) 0.2, Basophils # (Auto) 0.1, Immature Granulocyte # (Auto) 0.1, Sodium Level 140, Potassium Level 2.9, Chloride Level 102, Carbon Dioxide Level 24, Anion Gap 14, Blood Urea Nitrogen 14, Creatinine 0.84, Estimat Glomerular Filtration Rate > 60, BUN/Creatinine Ratio 17, Glucose Level 133, Calcium Level 9.0, Corrected Calcium 9.6, Total Bilirubin 0.8, Aspartate Amino Transf (AST/SGOT) 26, Alanine Aminotransferase (ALT/SGPT) 25, Alkaline Phosphatase 67, Total Protein 6.9, Albumin 3.3 04/15/20 05:16: White Blood Count 8.3, Red Blood Count 3.74, Hemoglobin 12.4, Hematocrit 37, Mean Corpuscular Volume 99, Mean Corpuscular Hemoglobin 33, Mean Corpuscular Hemoglobin Concent 33, Red Cell Distribution Width 11.3, Platelet Count 391, Mean Platelet Volume 10.4, Immature Granulocyte % (Auto) 1, Neutrophils (%) (Auto) 62, Lymphocytes (%) (Auto) 22, Monocytes (%) (Auto) 12, Eosinophils (%) (Auto) 2, Basophils (%) (Auto) 1, Neutrophils # (Auto) 5.2, Lymphocytes # (Auto) 1.8, Monocytes # (Auto) 1.0, Eosinophils # (Auto) 0.2, Basophils # (Auto) 0.0, Immature Granulocyte # (Auto) 0.1, Sodium Level 139, Potassium Level 3.3, Chloride Level 103, Carbon Dioxide Level 24, Anion Gap 12, Blood Urea Nitrogen 15, Creatinine 0.76, Estimat Glomerular Filtration Rate > 60, BUN/Creatinine Ratio 20, Glucose Level 127, Glucometer 133, Calcium Level 8.9, Corrected Calcium 9.6, Total Bilirubin 0.4, Aspartate Amino Transf (AST/SGOT) 34, Alanine Aminotransferase (ALT/SGPT) 30, Alkaline Phosphatase 86, Total Protein 6.8, Albumin 3.1 Discharge Home Medications: Active Scripts Active Allopurinol 100 Mg Tablet 100 Mg PO DAILY Deep Sea (Sodium Chloride) 44 Ml Natalbany 0 Ml NA QID Fluticasone Propionate 16 Gm Natalbany.susp 0 Natalbany NS DAILY Klor-Con M20 (Potassium Chloride) 20 Meq Tab.er.prt 20 Meq PO DAILY@0700 Sertraline HCl 100 Mg Tablet 100 Mg PO HS HYDROcodone/APAP 5 MG/325 MG TAB (Acetaminophen/Hydrocodone Bitart) 1 Tab Tab 1 Tab PO Q4H PRN Eliquis (Apixaban) 5 Mg Tablet 5 Mg PO BID Coreg (Carvedilol) 12.5 Mg Tablet 12.5 Mg PO BID Atorvastatin Calcium 80 Mg Tablet 80 Mg PO HS Plavix (Clopidogrel Bisulfate) 75 Mg Tablet 75 Mg PO DAILY Instructions to patient/family Please see electronic discharge instructions given to patient. 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
[2020-04-15 06:00] VITALS: BP 122/64
[2020-04-15 06:04] LABS: BASOPHILS % (AUTO) 1 % (0-10); EOSINOPHILS # (AUTO) 0.2 10^3/uL (0.0-0.3); EOSINOPHILS % (AUTO) 2 % (0-10); HEMATOCRIT 37 % (40-54); HEMOGLOBIN 12.4 g/dL (13.3-17.7); LYMPHOCYTES # (AUTO) 1.8 10^3/uL (1.0-4.0); LYMPHOCYTES % (AUTO) 22 % (12-44); MEAN CORPUSCULAR HEMOGLOBIN 33 pg (25-34); MEAN CORPUSCULAR HGB CONC 33 g/dL (32-36); MEAN CORPUSCULAR VOLUME 99 fL (80-99); MEAN PLATELET VOLUME 10.4 fL (9.0-12.2); MONOCYTES % (AUTO) 12 % (0-12); NEUTROPHILS # (AUTO) 5.2 10^3/uL (1.8-7.8); NEUTROPHILS % (AUTO) 62 % (42-75); PLATELET COUNT 391 10^3/uL (130-400); WHITE BLOOD COUNT 8.3 10^3/uL (4.3-11.0)
[2020-04-15 06:16] LABS: ALBUMIN 3.1 GM/DL (3.2-4.5); CHLORIDE 103 MMOL/L (98-107); POTASSIUM 3.3 MMOL/L (3.6-5.0); SODIUM 139 MMOL/L (135-145)
[2020-04-15 06:17] LABS: CALCIUM 8.9 MG/DL (8.5-10.1)
[2020-04-15 06:18] LABS: GLUCOSE 127 MG/DL (70-105); TOTAL PROTEIN 6.8 GM/DL (6.4-8.2)
[2020-04-15 06:20] LABS: BILIRUBIN,TOTAL 0.4 MG/DL (0.1-1.0); CARBON DIOXIDE 24 MMOL/L (21-32)
[2020-04-15 06:22] LABS: ALKALINE PHOSPHATASE 86 U/L (40-136); CREATININE SERUM 0.76 MG/DL (0.60-1.30); GFR ESTIMATED > 60
[2020-04-15 06:23] LABS: BUN/CREATININE RATIO 20
[2020-04-15 06:25] LABS: ALANINE AMINOTRANSFERASE 30 U/L (0-55)
[2020-04-15] MEDS: KCL 20 MEQ TAB (K-DUR) PO SCH (06:40)
--- NOTE | 2020-04-15 08:14 | Physical Therapy Progress Note ---
Therapy Progress Note Patient adamantly refused physical therapy this morning. Patient says "no, go away". Patient educated on the benefits of physical therapy and he continued to refuse. Patient would not perform exercises in bed or even roll over from his side. Patient refused to do anything. IVÁN DUKE PT Apr 15, 2020 08:14
[2020-04-15] MEDS: LOPERAMIDE 2 MG (IMODIUM) TABLET PO PRN (09:16)
[2020-04-15] MEDS: CARVEDILOL 12.5 MG (COREG) TABLET PO SCH (09:16)
[2020-04-15] MEDS: ALLOPURINOL 100 MG (ZYLOPRIM) TAB PO SCH (09:16)
[2020-04-15] MEDS: APIXABAN 5 MG (ELIQUIS) TABLET PO SCH (09:16)
[2020-04-15] MEDS: CLOPIDOGREL 75 MG (PLAVIX) TABLET PO SCH (09:16)
[2020-04-15] MEDS: INDOMETHACIN 25 MG (INDOCIN) CAP PO SCH (09:18)
--- NOTE | 2020-04-15 09:22 | Occ Therapy Progress Note ---
Therapy Progress Note OT attempted treatment this morning, but pt adamantly refused. Pt states "go away", OT educated pt on the benefits and purpose of OT, but he continued to refuse. OT encouraged pt to sit up on side of bed, but pt would not roll side to side, refusing to do anything. OT will attempt again later. 1, refusal [id number] LUCILLE PACE OT Apr 15, 2020 09:22
[2020-04-15] MEDS: FLUTICASONE NASAL SPRAY (FLONASE) 16 GM BTL NS SCH (10:02)
--- NOTE | 2020-04-15 10:27 | NUR ---
CM/SS DISCHARGE Patient discharged home as planned with assistance from his , daughter Mitra, and family. IMM2 discussed, patient indicated no intention to appeal. Discharge has been planned over the past week. Verbal statement documented, charted. HHC: Finalized with [facility], Start of Service tomorrow. DME: FWW delivered prior to patient dismissal. Kimberly shared with process description writer that patient vaped and also had two beer daily. She concluded that she will tell patient he should not use either until he has his followup/initial appointment with Dr. Sanchez. Kimberly described her impression is that patient is mentally more clear, but she observes that he is not motivated to assist himself. Family hopeful that once home, patient will at least perform at his maximum to help them with transfers and all other aspects of care. Kimberly stated patient believes he "is dying" and there is no reason to try to do anything. Made Kimberly aware of option of SNF placement directly from home if their current plan is not successful or safe for all involved. Addendum: 04/15/20 at 1047 by DIAZ MESSINA Faxed continuum of care information to office of Dr. Deb Sanchez since she has agreed to become his PCP.
[2020-04-15 10:45] VITALS: BP 122/64
--- NOTE | 2020-04-15 10:45 | NUR ---
PT SAT HIMSELF UP ON SIDE OF BED THIS MORNING, & FED HIMSELF BREAKFAST, WHICH HE HASN'T BEEN DOING CONSISTENTLY. PT VERBALIZES THAT HE IS EAGER TO GO HOME, BECAME IMPATIENT W STAFF DURING THE DISCHARGE PROCESS, WHEN REVIEWING MEDS, D/C ORDERS W PT & . PT STARTED PUSHING HIMSELF OUT OF THE ROOM BY SCOOTING HIS FEET IN THE W/C TOWARDS THE DOOR, STATING, "I'M READY TO GO." UPON ASSISTING PT TO TRANSFER FROM W/C TO THEIR VEHICLE, PT STOOD HIMSELF UP & GOT HIMSELF IN THE CAR, WHICH PT HAS NOT BEEN PARTICIPATING THAT MUCH W TRANSFERS PREVIOUSLY. STATES THAT SHE GOES TO DR. CARDOZA, & THAT SHE WILL CALL THEIR OFFICE & SCHEDULE APPT FOR PT THAT AGREES W HER SCHEDULE. [facility] TO FOLLOW UPON D/C.
--- NOTE | 2020-04-15 11:23 | Therapy Team Discharge Summary ---
Therapy Discharge Summary Discharge Recommendations Date of Discharge Occupational Therapy Pt admitted to ARU s/p CVA. At [facility], pt was independent with ADLs, and primarily used w/c for functional mobility around the house. At initial evaluation, pt required set up assistance with eating, min A oral care, total assist showering, mod A upper body dressing, min A lower body dressing, min A footwear, and total assist toileting. OT txs focused on increasing BUE strength and functional endurance, increasing safety and independence with functional mobility, and increasing awareness of R visual field/visual scanning. Pt made poor progress towards goals, as he refused therapy treatments prior to discharging. Day of discharge, pt refused to complete ADLs. Pt met 1 LTG of set up level with upper body dressing. Due to pt refusing recently, no recent QC scores obtained, but the last time pt participated in OT tx, he required min A eating, min A oral care, total assist showering, set up upper body dressing, total assist lower body dressing, total assist footwear, and total assist toileting. Pt discharged home with /family support, d/c from OT. Decreased Activ Tolerance, Decreased Safety Aware, Decreased UE Strength, Impaired Cognition, Impaired Coordination, Impaired Funct Balance, Impaired I ADL's, Impaired Self-Care Skills, Visual-Perceptual Deficit PT Coater Goals Coater Goals PT Senior Care Goals Time Frame: Apr 25, 2020 Roll Left to Right (QC): 6 Sit to Lying (QC): 6 Lying-Sitting on Side/Bed(QC): 6 Sit to Stand (QC): 6 Chair/[id number] Xfer(QC): 6 Car Transfer (QC): 4 Does the Patient Walk: Yes Walk 10 feet (QC): 4 Walk 10ft-Uneven Surface(QC): 3 Walk 50ft with 2 Turns (QC): 4 Walk 150 ft (QC): 9 Does the Pt use WC or Scooter?: Yes Wheel 50 feet with 2 turns (QC: 6 1 Step (curb) (QC): 3 4 Steps (QC): 9 12 Steps (QC): 9 Picking up an Object (QC): 9 OT Senior Care Goals Senior Care Goals Time Frame: Apr 26, 2020 Eating (QC): 6 (not met) Oral Hygiene (QC): 6 (not met) Shower/Bathe Self (QC): 4 (not met) Upper Body Dressing (QC): 5 (met) Lower Body Dressing (QC): 5 (not met) On/Off Footwear (QC): 5 (not met) Toileting Hygiene (QC): 6 (not met) Toilet/Commode Transfer (QC): 6 (not met) Additional Goals: 1-Demonstrate ADL Tasks, 2-Verbalize Understanding, 3- ImproveStrength/Kera 1=Demonstrate adherence to instructed precautions during ADL tasks. 2=Patient will verbalize/demonstrate understanding of assistive devices/modifications for ADL. 3=Patient will improve strength/tolerance for activity to enable patient to perform ADL's. Speech Coater Goals Senior Care Goals Patient will improve cognitive-communication abilities in order to complete daily tasks with decreased assistance. Patient will maintain adequate nutrition/hydration via safe effective swallow function. LUCILLE PACE OT Apr 15, 2020 11:23
--- NOTE | 2020-04-15 11:38 | Speech Therapy Daily Note ---
Speech Daily Progress Note Subjective Date Seen by Provider: Apr 15, 2020 Time Seen by Provider: 00:10 Patient was in bed and waiting on his to come pick him up to discharge to home. Objective Patient completed a series of memory questions related to the past 24 hours with 70% accuracy given minimal cuing. Assessment Assessment Current Status: Fair Progress Treatment Plan Discontinue ST Speech Short Term Goals Short Term Goals Short Term Goals 1) Patient will complete memory tasks related to his daily needs with 80% accuracy given minimal cues. 2) Patient will complete tasks safety awareness to his daily needs with 80% accuracy given minimal cues. 3) Patient will complete problem solving tasks related to his daily needs with 80% accuracy given minimal cues. 4) Patient will tolerate least restrictive diet level without s/s of aspiration at 80% with minimal cues. 5) Patient/caregiver will utilize compensatory strategies as trained at 90% with minimal cues. Speech Skilled Nursing Goals Skilled Nursing Goals Patient will improve cognitive-communication abilities in order to complete daily tasks with decreased assistance. Patient will maintain adequate nutrition/hydration via safe effective swallow function. Speech-Plan Patient/Family Goals Patient/Family Goals: Patient is discharging to home with family this morning. Treatment Plan Speech Therapy Treatment Plan: Discontinue ST Treatment Duration: Apr 19, 2020 Frequency: 4 times per week (Patient will receive skilled ST 4-5x per week) Estimated Hrs Per Day: .5 hour per day Rehab Potential: Poor Barriers to Learning: Patient's recent CVA, prior fall/injury, refusal to comply Safety Risks/Education Teaching Recipient: Patient Teaching Methods: Demonstration, Discussion Response to Teaching: Verbalize Understanding, Return Demonstration, Reinfo rcement Needed Education Topics Provided: Continued safety awareness, continued safe oral intake upon his return home. Time Speech Therapy Time In: 09:30 Speech Therapy Time Out: 09:40 Total Billed Time: 10 Billed Treatment Time 1, DYST, SLTS No QUALITY CODES: EXPRESSION OF IDEAS/WANTS:4 UNDERSTANDING VERBAL CONTENT: 3 BRIEF INTERVIEW MENTAL STATUS: YES REPETITION OF 3 WORDS: 1 TEMPORAL ORIENTATION: YEAR: MISSED BY 1 YEAR, MONTH: CORRECT, DAY: NO ANSWER RECALL SOCK: NO, COLOR: NO, BED: NO MEMORY/RECALL ABILITY: SEASON, THAT HE IS IN THE [facility] Apr 15, 2020 11:37
--- NOTE | 2020-04-15 11:41 | Therapy Team Discharge Summary ---
Therapy Discharge Summary Discharge Recommendations Date of Discharge Occupational Therapy Decreased Activ Tolerance, Decreased Safety Aware, Decreased UE Strength, Impaired Cognition, Impaired Coordination, Impaired Funct Balance, Impaired I ADL's, Impaired Self-Care Skills, Visual-Perceptual Deficit Speech-Language Pathology Patient was admitted to the ARU s/p CVA. Patient received skilled ST with focus on safety awareness, memory, recall of new information and dysphagia therapy. Patient initially did not speak much and began to answer questions with encouragement. Patient did regress over the past week due to be being noncompliant with therapies. Patient discharged to his home today with his and daughter to care for him. PT Earth Auger Operator Goals Assisted Goals PT Earth Auger Operator Goals Time Frame: Apr 25, 2020 Roll Left to Right (QC): 6 Sit to Lying (QC): 6 Lying-Sitting on Side/Bed(QC): 6 Sit to Stand (QC): 6 Chair/Hwa-pw-Kjift Xfer(QC): 6 Car Transfer (QC): 4 Does the Patient Walk: Yes Walk 10 feet (QC): 4 Walk 10ft-Uneven Surface(QC): 3 Walk 50ft with 2 Turns (QC): 4 Walk 150 ft (QC): 9 Does the Pt use WC or Scooter?: Yes Wheel 50 feet with 2 turns (QC: 6 1 Step (curb) (QC): 3 4 Steps (QC): 9 12 Steps (QC): 9 Picking up an Object (QC): 9 OT Assisted Goals Earth Auger Operator Goals Time Frame: Apr 26, 2020 Eating (QC): 6 (not met) Oral Hygiene (QC): 6 (not met) Shower/Bathe Self (QC): 4 (not met) Upper Body Dressing (QC): 5 (met) Lower Body Dressing (QC): 5 (not met) On/Off Footwear (QC): 5 (not met) Toileting Hygiene (QC): 6 (not met) Toilet/Commode Transfer (QC): 6 (not met) Additional Goals: 1-Demonstrate ADL Tasks, 2-Verbalize Understanding, 3-ImproveStrength/Kera 1=Demonstrate adherence to instructed precautions during ADL tasks. 2=Patient will verbalize/demonstrate understanding of assistive devices/modifications for ADL. 3=Patient will improve strength/tolerance for activity to enable patient to perform ADL's. Speech Earth Auger Operator Goals Assisted Goals Patient will improve cognitive-communication abilities in order to complete daily tasks with decreased assistance. Patient will maintain adequate nutrition/hydration via safe effective swallow function. HOLDEN CHAND Apr 15, 2020 11:41
--- NOTE | 2020-04-15 12:54 | Therapy Team Discharge Summary ---
Therapy Discharge Summary Discharge Recommendations Date of Discharge Physical Therapy Patient came to rehab following a CVA. Upon evaluation patient performed bed mobility with min assist, supine <-> sit min assist, sit <-> stand min assist, transfers max assist, car transfer min assist, ambulated 50' with a rolling walker with min assist (including 50' with at least 2 turns of 90 degrees and 10' over an uneven surface), and could propel a manual WC 150' with min assist. Patient has been performing bed mobility and transfer training, gait training, functional strengthening, balance and endurance training, WC mobility training. Patient has made poor progress and has not met any of his usp goals. Patient refuses therapy a lot of the time and has declined in functional mobility except for bed mobility. Patient has refused recently and doesn't have recent QC scores but however, prior to this he was performing bed mobility with independence, supine <-> sit SBA, sit <-> stand and transfers min assist, propel a manual WC 50' with SBA, ambulating 10' with a rolling walker with min assist. Patient was discharged from this facility today and will be discharged from PT at this time. Occupational Therapy Decreased Activ Tolerance, Decreased Safety Aware, Decreased UE Strength, Impaired Cognition, Impaired Coordination, Impaired Funct Balance, Impaired I ADL's, Impaired Self-Care Skills, Visual-Perceptual Deficit PT Residential Goals Residential Goals PT Residential Goals Time Frame: Apr 25, 2020 Roll Left to Right (QC): 6 Sit to Lying (QC): 6 Lying-Sitting on Side/Bed(QC): 6 Sit to Stand (QC): 6 Chair/Bol-sx-Gxfck Xfer(QC): 6 Car Transfer (QC): 4 Does the Patient Walk: Yes Walk 10 feet (QC): 4 Walk 10ft-Uneven Surface(QC): 3 Walk 50ft with 2 Turns (QC): 4 Walk 150 ft (QC): 9 Does the Pt use WC or Scooter?: Yes Wheel 50 feet with 2 turns (QC: 6 1 Step (curb) (QC): 3 4 Steps (QC): 9 12 Steps (QC): 9 Picking up an Object (QC): 9 OT Supervisor Blueprinting And Photocopy Goals Supervisor Blueprinting And Photocopy Goals Time Frame: Apr 26, 2020 Eating (QC): 6 (not met) Oral Hygiene (QC): 6 (not met) Shower/Bathe Self (QC): 4 (not met) Upper Body Dressing (QC): 5 (met) Lower Body Dressing (QC): 5 (not met) On/Off Footwear (QC): 5 (not met) Toileting Hygiene (QC): 6 (not met) Toilet/Commode Transfer (QC): 6 (not met) Additional Goals: 1-Demonstrate ADL Tasks, 2-Verbalize Understanding, 3- ImproveStrength/Kera 1=Demonstrate adherence to instructed precautions during ADL tasks. 2=Patient will verbalize/demonstrate understanding of assistive devices/modifications for ADL. 3=Patient will improve strength/tolerance for activity to enable patient to perform ADL's. Speech Residential Goals Supervisor Blueprinting And Photocopy Goals Patient will improve cognitive-communication abilities in order to complete daily tasks with decreased assistance. Patient will maintain adequate nutrition/hydration via safe effective swallow function. IVÁN DUKE PT Apr 15, 2020 12:54
--- NOTE | 2020-04-15 16:46 | NUR ---
Have called Dr. Sanchez's office, spoke cecile Tyler, notified that pt was discharged today to home, & that had stated that she would call Dr. Sanchez's office & schedule appt for according to her schedule. stated that she goes to Dr. Sanchez also.
[2020-04-16] MEDS ORDERED: INDOMETHACIN 25 MG (INDOCIN) CAP PO SCH (09:00)
[2020-04-17] MEDS ORDERED: INDOMETHACIN 25 MG (INDOCIN) CAP PO SCH (09:00)
== END 2020-04-15 19:09 | disposition home health service (06) | DRG 57 ==
PROVIDERS: ADMIT Internal Medicine; ATTEND Internal Medicine
DX: I69.398 Other sequelae of cerebral infarction (principal); R41.4 Neurologic neglect syndrome; I48.92 Unspecified atrial flutter; L03.116 Cellulitis of left lower limb; I69.321 Dysphasia following cerebral infarction; I69.318 Other symptoms and signs involving cognitive functions following cerebral infarction; R41.0 Disorientation, unspecified; H53.461 Homonymous bilateral field defects, right side; R32 Unspecified urinary incontinence; I65.23 Occlusion and stenosis of bilateral carotid arteries; I65.03 Occlusion and stenosis of bilateral vertebral arteries; F03.90 Unspecified dementia, unspecified severity, without behavioral disturbance, psychotic disturbance, mood disturbance, and anxiety; I10 Essential (primary) hypertension; M10.9 Gout, unspecified; G60.9 Hereditary and idiopathic neuropathy, unspecified; B35.1 Tinea unguium; F32.9 Major depressive disorder, single episode, unspecified; R15.9 Full incontinence of feces; E78.5 Hyperlipidemia, unspecified; M19.91 Primary osteoarthritis, unspecified site; Z87.891 Personal history of nicotine dependence; Z99.3 Dependence on wheelchair
CPT/HCPCS: 36415; 73600; 73620; 80053; 82962; 84550; 85025; 93005

== ENCOUNTER → 2020-05-17 | Outpatient (CLI) | payer MEDICARE, OTHER ==
[~2020-05-17] MED LIST: ACHD5005 PO; ALLO100T PO; AMLO-251 PO; APIX5TAB PO; ATOR80TA76 PO; CARV12.52 PO; CLOP75TA69 PO; FLUT16SP22 NS; POTA20TA8 PO; SERT-414 PO; SODI44SP2
--- NOTE | 2020-05-17 09:05 | Diagnostic Imaging Report ---
PROCEDURE: CT abdomen and pelvis without contrast. TECHNIQUE: Multiple contiguous axial images were obtained through the abdomen and pelvis without the use of intravenous contrast. Auto Exposure Controls were utilized during the CT exam to meet ALARA standards for radiation dose reduction. INDICATION: Gross hematuria. No prior studies are available for comparison. The lung bases demonstrate a centrally calcified nodule in the left lower lobe consistent with a granuloma. No discrete liver mass is identified. There are small stones within the gallbladder. No biliary ductal dilatation is seen. Pancreas and spleen are unremarkable. No adrenal mass is detected. There are extensive renal vascular calcifications present. There may be a tiny nonobstructing calculus in the left kidney as well. No definite ureteral calculi or hydronephrosis is seen. A left ureter is mildly prominent which could be owing to recent passage of a stone. Bladder is decompressed. There is a large amount of artifact in the pelvis from patient's left hip prosthesis, limiting evaluation of the bladder. Aorta is heavily calcified. Aorta is borderline aneurysmal in the lower extent measuring 3.1 cm. The small and large bowel loops are normal caliber. There is no obstruction. No free fluid or fluid collection is identified. The prostate is unremarkable. The bony structures are nonacute. IMPRESSION: 1. Tiny nonobstructing left renal calculus. Left ureter is mildly prominent without evidence of ureteral calculus. This can be seen with recent passage of a stone. 2. 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 Dictated by: Dictated on workstation # [id number]
== END ==
LOC: RAD 08:30
PROVIDERS: ATTEND Urology
DX: R31.0 Gross hematuria (principal); Z87.440 Personal history of urinary (tract) infections
CPT/HCPCS: 74176

== ENCOUNTER 2020-08-27 09:38 | Inpatient (IN) | payer MEDICARE, OTHER ==
[~2020-08-27] VITALS: Ht 177 cm; Wt 80.1 kg
[2020-08-27] MEDS ORDERED: CEFEPIME INJECTION 1,000 MG in WATER (STERILE) FOR INJECTION 10 ML IV ONE (10:00)
[2020-08-27] MEDS ORDERED: LACTATED RINGERS 1,000 ML IV ONE ×2 (10:00→12:05)
--- NOTE | 2020-08-27 10:00 | ED General ---
General Stated Complaint: FEVER,CONFUSION,WEAKNESS Source of Information: Patient, EMS, Family (), Old Records Exam Limitations: No Limitations History of Present Illness Date Seen by Provider: Aug 27, 2020 Time Seen by Provider: 09:44 Initial Comments Patient presents ER by EMS from home with chief complaint 3 to 4 days of feeling poorly, headache, today with a fever of 102 and history of recent stroke. He is post to be on Eliquis for his atrial fibrillation but this was stopped along with his Plavix because he was having difficulties passing a kidney stone by his urologist, Dr. Cortes. Patient says he been having dysuria off and on for the past several weeks and just completed a course of doxycycline about 1 to 2 weeks ago. He is not on antibiotics now. He has not had any antipyretics. Blood pressure was noted to be low by his 60/40. EMS noted 90/60. Patient denies a cough, nausea, chest pain, shortness of breath, wheezing, history of lung disease. He quit smoking many years ago. He does endorse dysuria. He was exposed to a physical therapist not wearing a mask who called him this morning to let them know that she had COVID-19. He has not had Covid vaccination. Allergies and Home Medications Allergies Coded Allergies: Penicillins (Unverified Allergy, Intermediate, RASH, 02/08/06) codeine (Unverified Allergy, Intermediate, RASH, 02/08/06) Home Medications Allopurinol 100 Mg Tablet, 100 MG PO DAILY Prescribed by: AYALA PARKS on 04/15/20543 Apixaban 5 Mg Tablet, 5 MG PO BID Prescribed by: AYALA PARKS on 04/15/20543 Atorvastatin Calcium 80 Mg Tablet, 80 MG PO HS Prescribed by: AYALA PARKS on 04/15/20543 Carvedilol 12.5 Mg Tablet, 12.5 MG PO BID Prescribed by: AYALA PARKS on 04/15/20543 Clopidogrel Bisulfate 75 Mg Tablet, 75 MG PO DAILY Prescribed by: AYALA PARKS on 04/15/20543 Fluticasone Propionate 16 Gm [place].susp, 0 SPRAY NS DAILY Prescribed by: AYALA PARKS on 04/15/20543 Hydrocodone Bit/Acetaminophen 1 Tab Tab, 1 TAB PO Q4H PRN for PAIN-MODERATE (5- 7) Prescribed by: AYALA PARKS on 04/15/20543 Potassium Chloride 20 Meq Tab.er.prt, 20 MEQ PO DAILY@0700 Prescribed by: AYALA PARKS on 04/15/20543 Sertraline HCl 100 Mg Tablet, 100 MG PO HS Prescribed by: AYALA PARKS on 04/15/20543 Sodium Chloride 44 Ml [place], 0 ML NA QID Prescribed by: AYALA PARKS on 04/15/20543 Patient Home Medication List Home Medication List Reviewed: Yes Review of Systems Review of Systems Constitutional: chills, fever, malaise, weakness EENTM: No ear discharge, No ear pain Respiratory: No cough, No short of breath Cardiovascular: No chest pain, No edema Gastrointestinal: No abdominal pain, No constipation, No diarrhea, No nausea, No vomiting Genitourinary: No decreased output, No discharge; dysuria; No frequency, No hematuria Musculoskeletal: No back pain, No joint pain Skin: No pruritus, No rash Psychiatric/Neurological: Denies Anxiety, Denies Depressed All Other Systems Reviewed Negative Unless Noted: Yes Past Wnqumxk-Hlqgtx-[id number] Hx Patient Social History Alcohol Use: Denies Use Smoking Status: Never a Smoker Recent Hopitalizations: Yes Past Medical History Surgeries: Yes Respiratory: No Cardiac: No Neurological: No Stroke Reproductive Disorders: No Genitourinary: No Gastrointestinal: No Musculoskeletal: No Arthritis Endocrine: No HEENT: No Cancer: No Psychosocial: No Integumentary: No Blood Disorders: No Physical Exam-Suspected Sepsis Physical Exam Vital Signs Vital Signs - First Documented 08/27/20 09:40 Temp 39.1 Pulse 79 Resp 18 B/P (MAP) 94/63 (73) Pulse Ox 95 Capillary Refill : Height, Weight, BMI Height: '" Weight: lbs. oz. kg; 25.70 BMI Method: General Appearance: Chronically ill, Moderate Distress Eyes: Bilateral Eye Normal Inspection, Bilateral Eye PERRL, Bilateral Eye EOMI HEENT: PERRL/EOMI, Pharynx Normal, Moist Mucous Membranes Neck: Full Range of Motion, Normal Inspection, Non Tender, Supple Respiratory: Chest Non Tender, Lungs Clear, Normal Breath Sounds, No Accessory Muscle Use, No Respiratory Distress Cardiovascular: Regular Rate, Rhythm, Normal Peripheral Pulses, Tachycardia Gastrointestinal: Normal Bowel Sounds, Non Tender, Soft Extremity: Normal Capillary Refill, Normal Inspection, No Pedal Edema Neurologic/Psychiatric: Alert, No Motor/Sensory Deficits, Normal Mood/Affect, Other (Person place but not time or situation) Skin: normal color, warm/dry Focused Exam Sepsis Stage: Septic Shock Possible Source: Genitouriary Lactate Level 08/27/20 09:40: Lactic Acid Level 2.11*H 08/27/20 12:25: Lactic Acid Level 1.17 Time of Focused Exam: 11:30 Respiratory: Lungs Clear, Normal Breath Sounds, No Accessory Muscle Use, No Respiratory Distress Cardiovascular: Regular Rate, Rhythm, No Edema, Normal Peripheral Pulses, Tachycardia Capillary Refill: Less Than 3 Seconds Peripheral Pulses: 1+ Dorsalis Pedis (R), 1+ Left Dors-Pedis (L) Skin: normal color, warm/dry Lactic Acid Level Laboratory Tests Test 08/27/20 12:25 Lactic Acid Level 1.17 MMOL/L (0.50-2.00) Within 3hrs of presentation: Admin fluids, Admin ABX, Blood cultures prior to ABX's, Focus exam, Lactate level Progress/Results/Core Measures Suspected Sepsis SIRS Temperature: Pulse: Respiratory Rate: Laboratory Tests 08/27/20 09:40: White Blood Count 19.9H Blood Pressure / Mean: 08/27/20 09:40: Lactic Acid Level 2.11*H 08/27/20 12:25: Lactic Acid Level 1.17 Laboratory Tests 08/27/20 09:40: Creatinine 0.81, Platelet Count 177, Total Bilirubin 0.5 08/27/20 10:50: INR Comment 1.1 Results/Orders Lab Results Laboratory Tests Test 08/27/20 09:40 08/27/20 10:20 08/27/20 10:50 08/27/20 12:25 Range/Units White Blood Count 19.9 H 4.3-11.0 10^3/uL Red Blood Count 4.07 L 4.30-5.52 10^6/uL Hemoglobin 12.6 L 13.3-17.7 g/dL Hematocrit 38 L 40-54 % Mean Corpuscular Volume 94 80-99 fL Mean Corpuscular Hemoglobin 31 25-34 pg Mean Corpuscular Hemoglobin Concent 33 32-36 g/dL Red Cell Distribution Width 14.9 H 10.0-14.5 % Platelet Count 177 130-400 10^3/uL Mean Platelet Volume 12.3 H 9.0-12.2 fL Immature Granulocyte % (Auto) 1 % Neutrophils (%) (Auto) 81 H 42-75 % Lymphocytes (%) (Auto) 5 L 12-44 % Monocytes (%) (Auto) 13 H 0-12 % Eosinophils (%) (Auto) 0 0-10 % Basophils (%) (Auto) 0 0-10 % Neutrophils # (Auto) 16.2 H 1.8-7.8 10^3/uL Lymphocytes # (Auto) 1.1 1.0-4.0 10^3/uL Monocytes # (Auto) 2.5 H 0.0-1.0 10^3/uL Eosinophils # (Auto) 0.0 0.0-0.3 10^3/uL Basophils # (Auto) 0.1 0.0-0.1 10^3/uL Immature Granulocyte # (Auto) 0.1 0.0-0.1 10^3/uL Neutrophils % (Manual) 71 % Lymphocytes % (Manual) 5 % Monocytes % (Manual) 12 % Basophils % (Manual) 1 % Band Neutrophils 11 % Atypical Lymphocytes 1 % Blood Morphology Comment NORMAL Urine Color YELLOW Urine Clarity CLEAR Urine pH 6.0 5-9 Urine Specific [place] 1.020 1.016-1.022 Urine Protein NEGATIVE NEGATIVE Urine Glucose (UA) NEGATIVE NEGATIVE Urine Ketones NEGATIVE NEGATIVE Urine Nitrite NEGATIVE NEGATIVE Urine Bilirubin NEGATIVE NEGATIVE Urine Urobilinogen 1.0 < = 1.0 MG/DL Urine Leukocyte Esterase TRACE H NEGATIVE Urine RBC (Auto) NEGATIVE NEGATIVE Urine RBC 0-2 /HPF Urine WBC 5-10 H /HPF Urine Squamous Epithelial Cells 0-2 /HPF Urine Crystals NONE /LPF Urine Bacteria MODERATE H /HPF Urine Casts NONE /LPF Urine Mucus SMALL H /LPF Urine Culture Indicated YES Sodium Level 138 135-145 MMOL/L Potassium Level 3.3 L 3.6-5.0 MMOL/L Chloride Level 105 98-107 MMOL/L Carbon Dioxide Level 21 21-32 MMOL/L Anion Gap 12 5-14 MMOL/L Blood Urea Nitrogen 11 7-18 MG/DL Creatinine 0.81 0.60-1.30 MG/DL Estimat Glomerular Filtration Rate > 60 BUN/Creatinine Ratio 14 Glucose Level 164 H 70-105 MG/DL Lactic Acid Level 2.11 *H 1.17 0.50-2.00 MMOL/L Calcium Level 8.2 L 8.5-10.1 MG/DL Corrected Calcium 8.8 8.5-10.1 MG/DL Total Bilirubin 0.5 0.1-1.0 MG/DL Aspartate Amino Transf (AST/SGOT) 66 H 5-34 U/L Alanine Aminotransferase (ALT/SGPT) 60 H 0-55 U/L Alkaline Phosphatase 136 40-136 U/L Total Protein 5.9 L 6.4-8.2 GM/DL Albumin 3.2 3.2-4.5 GM/DL Influenza Type A (RT-PCR) Not Detected Not Detecte Influenza Type B (RT-PCR) Not Detected Not Detecte SARS-CoV-2 RNA (RT-PCR) Not Detected Not Detecte Group A Streptococcus Screen NEGATIVE NEGATIVE Prothrombin Time 14.8 H 12.2-14.7 SEC INR Comment 1.1 0.8-1.4 Activated Partial Thromboplast Time 37 H 24-35 SEC My Orders Orders - LUCITA MACARIO Cbc With Automated Diff (08/27/20 09:52) Comprehensive Metabolic Panel (08/27/20 09:52) Blood Culture (08/27/20 09:52) Sputum Culture (08/27/20 09:52) Urinalysis (08/27/20:52) Urine Culture (08/27/20 09:52) Protime With Inr (08/27/20 09:52) Partial Thromboplastin Time (08/27/20 09:52) Chest 1 View, Ap/Pa Only (08/27/20 09:52) Ed Iv/Invasive Line Start (08/27/20 09:52) Ed Iv/Invasive Line Start (08/27/20 09:52) Vital Signs Adult Sepsis Patie Q15M (08/27/20 09:52) O2 (08/27/20 09:52) Remove Rings In Anticipation O (08/27/20 09:52) Lactic Acid Analyzer (08/27/20 09:52) Lactated Ringers (Lr 1000 Ml Iv Solution (08/27/20 10:00) Cefepime Injection (Maxipime Injection) (08/27/20 10:00) Covid 19 Inhouse Test (08/27/20 09:52) Influenza A And B By Pcr (08/27/20 09:52) Acetaminophen Tablet (Tylenol Tablet) (08/27/20 10:15) Rapid Strep A Screen (08/27/20 10:06) Manual Differential (08/27/20 09:40) Lactated Ringers (Lr 1000 Ml Iv Solution (08/27/20 11:31) Medications Given in ED Current Medications Medications Dose Ordered Sig/Sonia Route Start Time Stop Time Status Last Admin Dose Admin Acetaminophen 1,000 mg ONCE ONCE PO 08/27/20 10:15 08/27/20 10:16 DC 08/27/20 10:25 1,000 MG Cefepime HCl 1000 mg/Sterile Water 10 ml @ 200 mls/hr ONCE ONCE IV 08/27/20 10:00 08/27/20 10:02 DC 08/27/20 10:53 200 MLS/HR Lactated Ringer's 1,000 ml @ 0 mls/hr Q0M ONCE IV 08/27/20 10:00 08/27/20 10:01 DC 08/27/20 10:25 1,000 MLS/HR Vital Signs/I&O 08/27/20 08/27/20 09:40 11:33 Temp 39.1 Pulse 79 70 Resp 18 20 B/P (MAP) 94/63 (73) 75/45 Pulse Ox 95 97 Capillary Refill : Progress Note : Time: 14:28 Progress Note Based on malodor and history we suspected a UTI so started him on cefepime and after 3 L of fluids his blood pressure was still borderline so a PICC line was ordered. Diagnostic Imaging Diagonstic Imaging: Xray Plain Films/CT/US/NM/MRI: chest Comments [facility], [place] NAME: MARITZA BEGUM [facility] REC#: [id number] PT STATUS: REG ER : 1950 PHYSICIAN: LUCITA MACARIO MD ADMIT DATE: 08/27/20/ER Draft Date of Exam:08/27/20 CHEST 1 VIEW, AP/PA ONLY INDICATION: sepsis COMPARISON: 03/25/2020. FINDINGS: Single frontal view of the chest demonstrates normal heart size and pulmonary vascularity. The lungs are well aerated and clear. No large pleural effusion or pneumothorax is seen. The visualized osseous structures show no acute abnormalities. IMPRESSION: 1. No acute cardiopulmonary process. Dictated on workstation # [id number] Dict: 08/27/20 1054 Trans: 08/27/20 1056 [id number] Interpreted by: ANN ZHONG MD Electronically signed by: Departure Communication (Admissions) Time/Spoke to Admitting Phy: 11:00 Dr. Sanchez to the bedside to see the patient and agrees to accept the patient to the ICU on cefepime. She would like a PICC line placed. After discussing the case with and patient the patient elects to be a DNR/DNI. Impression Primary Impression: UTI (urinary tract infection) Qualified Codes: N10 - Acute pyelonephritis Additional Impressions: Septic shock Person under investigation for COVID-19 Disposition: ADMITTED INPATIENT Condition: Stable Admissions Decision to Admit Reason: Admit from ER (General) Decision to Admit/Date: Aug 27, 2020 Time/Decision to Admit Time: 10:30 Departure-Patient Inst. Referrals: ODALYS SANCHEZ MD (PCP/Family) Primary Care Physician LUCITA MACARIO Aug 27, 2020 10:00
[2020-08-27 10:12] LABS: BASOPHILS # (AUTO) 0.1 10^3/uL (0.0-0.1); BASOPHILS % (AUTO) 0 % (0-10); EOSINOPHILS % (AUTO) 0 % (0-10); HEMATOCRIT 38 % (40-54); HEMOGLOBIN 12.6 g/dL (13.3-17.7); LYMPHOCYTES # (AUTO) 1.1 10^3/uL (1.0-4.0); LYMPHOCYTES % (AUTO) 5 % (12-44); MEAN CORPUSCULAR HEMOGLOBIN 31 pg (25-34); MEAN CORPUSCULAR HGB CONC 33 g/dL (32-36); MEAN CORPUSCULAR VOLUME 94 fL (80-99); MEAN PLATELET VOLUME 12.3 fL (9.0-12.2); MONOCYTES # (AUTO) 2.5 10^3/uL (0.0-1.0); MONOCYTES % (AUTO) 13 % (0-12); NEUTROPHILS # (AUTO) 16.2 10^3/uL (1.8-7.8); NEUTROPHILS % (AUTO) 81 % (42-75); PLATELET COUNT 177 10^3/uL (130-400); WHITE BLOOD COUNT 19.9 10^3/uL (4.3-11.0)
[2020-08-27] MEDS ORDERED: ACETAMINOPHEN 500 MG TAB (TYLENOL) PO ONE (10:15)
[2020-08-27 10:24] LABS: BILIRUBIN,URINE NEGATIVE (NEGATIVE); CLARITY,URINE CLEAR; COLOR,URINE YELLOW; GLUCOSE, URINE (UA) NEGATIVE (NEGATIVE); KETONES,URINE NEGATIVE (NEGATIVE); LEUKOCYTE ESTERASE ,URINE TRACE (NEGATIVE); NITRITE,URINE NEGATIVE (NEGATIVE); PROTEIN,URINE NEGATIVE (NEGATIVE)
[2020-08-27 10:26] LABS: ALBUMIN 3.2 GM/DL (3.2-4.5); CHLORIDE 105 MMOL/L (98-107)
[2020-08-27 10:27] LABS: POTASSIUM 3.3 MMOL/L (3.6-5.0); SODIUM 138 MMOL/L (135-145)
[2020-08-27 10:28] LABS: CALCIUM 8.2 MG/DL (8.5-10.1)
[2020-08-27 10:29] LABS: GLUCOSE 164 MG/DL (70-105); TOTAL PROTEIN 5.9 GM/DL (6.4-8.2)
[2020-08-27 10:30] LABS: ATYPICAL LYMPHOCYTES 1 %; BAND NEUTROPHILS 11 %; BASOPHILS % (MANUAL) 1 %; CARBON DIOXIDE 21 MMOL/L (21-32); LYMPHOCYTES % (MANUAL) 5 %; MONOCYTES % (MANUAL) 12 %; NEUTROPHILS % (MANUAL) 71 %; RBC MORPH NORMAL
[2020-08-27 10:31] LABS: BILIRUBIN,TOTAL 0.5 MG/DL (0.1-1.0)
[2020-08-27 10:32] LABS: ALKALINE PHOSPHATASE 136 U/L (40-136)
[2020-08-27 10:33] LABS: BACTERIA,URINE MODERATE /HPF; CREATININE SERUM 0.81 MG/DL (0.60-1.30); GFR ESTIMATED > 60; RBC,URINE 0-2 /HPF; SQUAMOUS EPITHELIAL CELL,UR 0-2 /HPF
[2020-08-27 10:34] LABS: BUN/CREATININE RATIO 14
[2020-08-27 10:35] LABS: ALANINE AMINOTRANSFERASE 60 U/L (0-55)
--- NOTE | 2020-08-27 10:57 | Diagnostic Imaging Report ---
INDICATION: sepsis COMPARISON: 03/25/2020. FINDINGS: Single frontal view of the chest demonstrates normal heart size and pulmonary vascularity. The lungs are well aerated and clear. No large pleural effusion or pneumothorax is seen. The visualized osseous structures show no acute abnormalities. IMPRESSION: 1. No acute cardiopulmonary process. Dictated by: Dictated on workstation # [id number]
[2020-08-27 11:17] LABS: INR 1.1 (0.8-1.4); PROTHROMBIN TIME PATIENT 14.8 SEC (12.2-14.7)
[2020-08-27] MEDS ORDERED: LACTATED RINGERS 1,000 ML IV STA (11:31)
[2020-08-27] MEDS ORDERED: CATHETER FLUSH 10 ML SYR IV PRN (12:15)
[2020-08-27] MEDS ORDERED: EPINEPHrine 1 MG INJECTION 4 MG in NS (IVPB) 248 ML IV SCH (12:15)
[2020-08-27] MEDS ORDERED: ONDANSETRON 4 MG/2 ML (SDV) Z0FRAN IV PRN (12:15)
[2020-08-27] MEDS ORDERED: ACETAMINOPHEN 650 MG SUPP (TYLENOL) PR PRN (12:15)
--- NOTE | 2020-08-27 13:04 | Tele-ICU Consult ---
History of Present Illness History of Present Illness Date Seen by Provider: Aug 27, 2020 Time Seen by Provider: 13:03 Date of Admission Allergies and Home Medications Allergies Coded Allergies: Penicillins (Unverified Allergy, Intermediate, RASH, 02/08/06) codeine (Unverified Allergy, Intermediate, RASH, 02/08/06) Home Medications Allopurinol 100 Mg Tablet, 100 MG PO DAILY Prescribed by: AYALA PARKS on 04/15/20543 Apixaban 5 Mg Tablet, 5 MG PO BID Prescribed by: AYALA PARKS on 04/15/20543 Atorvastatin Calcium 80 Mg Tablet, 80 MG PO HS Prescribed by: AYALA PARKS on 04/15/20543 Carvedilol 12.5 Mg Tablet, 12.5 MG PO BID Prescribed by: AYALA PARKS on 04/15/20543 Clopidogrel Bisulfate 75 Mg Tablet, 75 MG PO DAILY Prescribed by: AYALA PARKS on 04/15/20543 Fluticasone Propionate 16 Gm [place].susp, 0 SPRAY NS DAILY Prescribed by: AYALA PARKS on 04/15/20543 Hydrocodone Bit/Acetaminophen 1 Tab Tab, 1 TAB PO Q4H PRN for PAIN-MODERATE (5- 7) Prescribed by: AYALA PARKS on 04/15/20543 Potassium Chloride 20 Meq Tab.er.prt, 20 MEQ PO DAILY@0700 Prescribed by: AYALA PARKS on 04/15/20543 Sertraline HCl 100 Mg Tablet, 100 MG PO HS Prescribed by: AYALA PARKS on 04/15/20543 Sodium Chloride 44 Ml [place], 0 ML NA QID Prescribed by: AYALA PARKS on 04/15/20543 Past Medical/Social/Family Hx Patient Social History Tobacco Use?: No Smoking Status: Never a Smoker Use of E-Cig and/or Vaping dev: No Substance use?: No Alcohol Use?: No Pt stated abuse/neglect: No Current Status Advance Directives: No Communicates: Verbally Primary Language: Danish Preferred Spoken Language: Danish Sensory deficits: Hearing impairment Review of Systems Constitutional: see HPI Sepsis Event Evaluation Height, Weight, BMI Height: '" Weight: lbs. oz. kg; 25.53 BMI Method: Exam Exam Patient acknowledged, consented, and participated in this virtual visit which was conducted using real time audio/video Vital Signs Date Time Temp Pulse Resp B/P (MAP) Pulse Ox O2 Delivery O2 Flow Rate FiO2 08/27/20 11:33 70 20 75/45 97 08/27/20 09:40 39.1 79 18 94/63 (73) 95 Height & Weight Height: '" Weight: lbs. oz. kg; 25.53 BMI Method: General Appearance: No Apparent Distress Respiratory: Lungs Clear, Normal Breath Sounds, No Accessory Muscle Use, No Respiratory Distress Cardiovascular: Regular Rate, Rhythm, No Edema, Normal Peripheral Pulses, Tachycardia Capillary Refill: Less Than 3 Seconds Peripheral Pulses: 1+ Dorsalis Pedis (R), 1+ Left Dors-Pedis (L) Results Lab Laboratory Tests 08/27/20 09:40 Assessment/Plan Assessment/Plan (Tele-ICU Physician , consultation) Available chart/ vitals / labs / Images reviewed H&P is from ER notes Patient's information available about PMH, Shx, Fhx allergy reviewed in EMR. ROS as per chart and RN report Patient admitted 08/27 with weakness and hypotension , recent kidney stone and abx s outpt in ER received abx and 2 L NS Now in ICU, hemodynamically stable , picc being placed Video assessment done using teleICU camera, rest of exam as per RN Discussed with RN. AAO x 2 , no complaisn A/P Sepsis - received 2 L NS , follow lactate , BP responded to IVF Uti - s/p recent abx - doxycycline 2 weeks ago - started on cefepime , cx pending - exposure to covid - testing pending , flu neg A fib - off Eliquis ? 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 - as per pcp -assess needs for speach Tx Lines : 08/27 PICC [place]: 08/27 placed in ER OG: Nutrition: npo VTE Prophylaxis: scd Stress Ulcer Prophylaxis: na Glycemic Control: + RN to confirm with family if was taking Eliquis , and will resume / vs other Plans in collaboration with bedside consultants and IM MDs. Discussed with RN to reach out if any questions or concerns A total of 28 minutes of critical care time was devoted to this patient today, required to treat and/or prevent further deterioration of critical care c ondition ( as above ) . DIONI MAYERS MD Aug 27, 2020 13:04
--- NOTE | 2020-08-27 14:23 | Diagnostic Imaging Report ---
INDICATION: PICC line placement. COMPARISON: Earlier same day FINDINGS: Single frontal radiographic view of the chest was obtained and demonstrates interval placement of right upper extremity PICC line, tip which terminates in the SVC. Cardiac silhouette and pulmonary vasculature stable. Lungs remain clear. There is no focal consolidation, large effusion, nor pneumothorax. Osseous structures show no new acute abnormalities. IMPRESSION: 1. New right upper extremity PICC line with tip in the low SVC. Dictated by: Dictated on workstation # [id number]
[2020-08-27] MEDS: VASOPRESSIN INJECTION 20 UNIT in NS (IVPB) 100 ML IV SCH ×2 (14:31→20:24)
[2020-08-27] MEDS: NOREPINEPHRINE 8 MG/250 ML 250 ML IV SCH (14:31)
[2020-08-27] MEDS ORDERED: TMSL.4C PO (14:41)
[2020-08-27] MEDS ORDERED: FINA5TAB6 PO (14:41)
[2020-08-27] MEDS ORDERED: SERT-414 PO (14:41)
[2020-08-27] MEDS ORDERED: CARV3.122 PO (14:41)
[2020-08-27] MEDS ORDERED: ATOR80TA76 PO (14:41)
[2020-08-27] MEDS ORDERED: ALLO100T PO (14:41)
[2020-08-27] MEDS ORDERED: POTA20TA8 PO (14:41)
[2020-08-27] MEDS ORDERED: ACET-2267 PO (14:42)
[2020-08-27] MEDS: POTASSIUM CL 10MEQ/50ML IVPB 50 ML IV SCH ×3 (15:33→18:09)
[2020-08-27] MEDS: LACTATED RINGERS 1,000 ML IV SCH ×3 (15:33→23:10)
[2020-08-27] MEDS: inSUlin ASPART (NovoLOG) 1 UNIT/0.01 ML (CHARGE PER UNIT) SQ SCH ×2 (17:44→23:11)
[2020-08-27] MEDS: CEFEPIME 1,000 MG/SWFI 10 ML IV PUSH IV SCH ×4 (18:11→23:10)
[2020-08-27] MEDS: ACETAMINOPHEN 325 MG TABLET PO PRN (21:13)
[2020-08-28] MEDS: VASOPRESSIN INJECTION 20 UNIT in NS (IVPB) 100 ML IV SCH ×3 (03:55→21:42)
[2020-08-28] MEDS: NOREPINEPHRINE 8 MG/250 ML 250 ML IV SCH ×2 (03:55→21:42)
[2020-08-28] MEDS: LACTATED RINGERS 1,000 ML IV SCH ×3 (05:19→16:46)
[2020-08-28] MEDS: CEFEPIME 1,000 MG/SWFI 10 ML IV PUSH IV SCH ×6 (05:19→18:19)
--- NOTE | 2020-08-28 05:55 | Diagnostic Imaging Report ---
EXAMINATION: Portable erect AP chest at 4:23 AM INDICATION: Septic shock The heart is stable in size when compared to the prior exam of 08/27/2020. The carotid bronchovascular markings in the right infrahilar region seen previously are also again evident and no different. The lungs remain generally clear. There is no sign of failure, pneumonia or significant pleural effusion. The mediastinum is not widened. The osseous structures are intact. The right-sided PICC line is stable in position. IMPRESSION: When compared to the previous study, there has been no significant change. No new abnormality has developed. Dictated by: Dictated on workstation # [id number]
[2020-08-28 06:02] LABS: BASOPHILS # (AUTO) 0.1 10^3/uL (0.0-0.1); BASOPHILS % (AUTO) 0 % (0-10); EOSINOPHILS # (AUTO) 0.2 10^3/uL (0.0-0.3); EOSINOPHILS % (AUTO) 1 % (0-10); HEMATOCRIT 36 % (40-54); HEMOGLOBIN 11.8 g/dL (13.3-17.7); LYMPHOCYTES # (AUTO) 1.8 10^3/uL (1.0-4.0); LYMPHOCYTES % (AUTO) 10 % (12-44); MEAN CORPUSCULAR HEMOGLOBIN 31 pg (25-34); MEAN CORPUSCULAR HGB CONC 33 g/dL (32-36); MEAN CORPUSCULAR VOLUME 95 fL (80-99); MEAN PLATELET VOLUME 11.2 fL (9.0-12.2); MONOCYTES # (AUTO) 1.7 10^3/uL (0.0-1.0); MONOCYTES % (AUTO) 9 % (0-12); NEUTROPHILS % (AUTO) 79 % (42-75); PLATELET COUNT 148 10^3/uL (130-400); WHITE BLOOD COUNT 17.8 10^3/uL (4.3-11.0)
[2020-08-28 06:28] LABS: BUN/CREATININE RATIO 14; CALCIUM 8.5 MG/DL (8.5-10.1); CARBON DIOXIDE 22 MMOL/L (21-32); CHLORIDE 109 MMOL/L (98-107); CREATININE SERUM 0.65 MG/DL (0.60-1.30); GFR ESTIMATED > 60; GLUCOSE 103 MG/DL (70-105); MAGNESIUM 1.2 MG/DL (1.6-2.4); PHOSPHORUS 2.6 MG/DL (2.3-4.7); POTASSIUM 3.3 MMOL/L (3.6-5.0); SODIUM 140 MMOL/L (135-145)
[2020-08-28] MEDS: MAGNESIUM 1 GM/100 ML IVPB 100 ML IV SCH (06:44)
[2020-08-28] MEDS: inSUlin ASPART (NovoLOG) 1 UNIT/0.01 ML (CHARGE PER UNIT) SQ SCH ×3 (06:44→18:07)
[2020-08-28] MEDS: POTASSIUM CL 10MEQ/50ML IVPB 50 ML IV SCH ×4 (06:44→10:46)
[2020-08-28] MEDS: KCL 20 MEQ TAB (K-DUR) PO SCH (06:45)
--- NOTE | 2020-08-28 07:14 | History & Physical ---
History of Present Illness History of Present Illness Reason for visit/HPI PT IS A 70 Y/O MALE WHO IS A RELATIVELY NEW PATIENT IN MY PRACTICE. PT WAS SEEN IN THE ER - LATE ENTRY NOTE DUE TO PT'S CHART NOT AVAILABLE AT THE TIME OF MY INITIAL EVALUATION OF THE PATIENT. HIS CALLED MY OFFICE WITH COMPLAINT/CONCERN FOR LOW BLOOD PRESSURE IN THE 60/40'S SHE WAS IMMEDIATELY DIRECTED TO CALL 911 DUE TO LIKELY SHOCK/SEPSIS. UPON EMS EVALUATION, HE HAD PRESSURES IN THE 90'S/50'S. HE CONTINUED TO HAVE LOW BLOOD PRESSURES AND HAD TO BE GIVEN NS AND LR WIDE OPEN X 2 LITERS. HE REPORTEDLY WAS NOT FEELING WELL STARTING WEDNESDAY OF LAST WEEK. HE WAS LETHARGIC ALL WEEKEND PER 'S REPORT. THEY WERE EXPOSED TO A COVID POSITIVE INDIVIDUAL SEVERAL TIMES OVER THE PAST FEW WEEKS WITHOUT THE INDIVIDUAL OR THE PATIENT BEING AWARE OF THE POSITIVE STATUS UNTIL WEDNESDAY OF LAST WEEK. Date of Admission Aug 27, 2020 at 12:01 Date Seen by a Provider: Aug 27, 2020 Time Seen by a Provider: 10:45 I consulted on this patient on 08/28/20 07:08 Attending Physician Odalys Sanchez MD Admitting Physician Odalys Sanchez MD Consult E-ICU - CRITICAL CARE CONSULT Allergies and Home Medications Allergies Coded Allergies: Penicillins (Unverified Allergy, Intermediate, RASH, 02/08/06) codeine (Unverified Allergy, Intermediate, RASH, 02/08/06) Home Medications Acetaminophen 500 Mg Tablet, 500-1,000 MG PO Q8H PRN for PAIN-MILD (1-4), (Reported) Last Action: Held Allopurinol 100 Mg Tablet, 100 MG PO 1600, (Reported) Last Action: Held Atorvastatin Calcium 80 Mg Tablet, 80 MG PO HS, (Reported) Last Action: Held Carvedilol 3.125 Mg Tablet, 3.125 MG PO BID, (Reported) Last Action: Held Finasteride 5 Mg Tablet, 5 MG PO DAILY, (Reported) Last Action: Continued Potassium Chloride 20 Meq Tab.er.prt, 20 MEQ PO DAILY, (Reported) Last Action: Held Sertraline HCl 100 Mg Tablet, 100 MG PO HS, (Reported) Last Action: Held Tamsulosin HCl 0.4 Mg Cap, 0.4 MG PO 1900, (Reported) Last Action: Held Patient Home Medication List Home Medication List Reviewed: Yes Past Slpfsoy-Wskwue-Lbuevp Hx Past Med/Social Hx: Reviewed Nursing Past Med/Soc Hx, Reviewed and Corrections made Patient Social History Marrital Status: Living Status: LIVES AT HOME WITH SPOUSE Employed/Student: retired Alcohol Use: Denies Use Recreational Drug Use: No Smoking Status: Never a Smoker 2nd Hand Smoke Exposure: No Physical Abuse Screen: No Sexual Abuse: No Recent Foreign Travel: No Contact w/other who traveled: No Recent Hopitalizations: No Recent Infectious Disease Expo: No Seasonal Allergies Seasonal Allergies: No Past Medical History Surgeries: Appendectomy, Joint Replacement (KNEE REPLACEMENT, LEFT HIP rePLACEMENT) Cardiac: Atrial Fibrillation, High Cholesterol, Hypertension Neurological: Stroke Reproductive: No Sexually Transmitted Disease: No HIV/AIDS: No Genitourinary: Benign Prostatic Hyperpl, Prostate Problems, Bladder Infection, Kidney Stones Musculoskeletal: Arthritis Loss of Vision: Denies Hearing Impairment: Hard of Hearing Psychosocial: Anxiety, Depression History of Blood Disorders: No Family History Reviewed Nursing Family Hx Heart Disease, Hypertension Review of Systems Constitutional: No chills, No fever; malaise, weakness EENTM: No hoarseness, No throat pain Respiratory: cough; No dyspnea on exertion; short of breath Cardiovascular: No chest pain, No palpitations Gastrointestinal: abdominal pain, diarrhea; No nausea, No vomiting Genitourinary: frequency, hematuria, nocturia Musculoskeletal: muscle weakness Skin: no symptoms reported Psychiatric/Neurological: Anxiety All Other Systems Reviewed Negative Unless Noted: Yes Physical Exam Vital Signs Vital Signs - First Documented 08/27/20 08/27/20 09:40 12:15 Temp 39.1 Pulse 79 Resp 18 B/P (MAP) 94/63 (73) Pulse Ox 95 O2 Delivery Room Air Capillary Refill : Less Than 3 Seconds Height, Weight, BMI Height: '" Weight: lbs. oz. kg; 25.53 BMI Method: General Appearance: WD/WN, Mild Distress HEENT: PERRL/EOMI, Pharynx Normal Neck: Full Range of Motion, Normal Inspection, Non Tender, Supple Respiratory: Chest Non Tender, Decreased Breath Sounds (WITH CRACKLES IN BAsES) Cardiovascular: Regular Rate, Rhythm, Normal Peripheral Pulses Gastrointestinal: No Pulsatile Mass, Non Tender, Soft, Other (HYPERACTIVE BOWEL SOUNDS) Rectal: Deferred Back: Normal Inspection Extremity: Normal Capillary Refill, Normal Inspection, Normal Range of Motion, Non Tender, No Calf Tenderness Neurologic/Psychiatric: Alert, Oriented x3, No Motor/Sensory Deficits, Normal Mood/Affect Skin: Normal Color, Warm/Dry Lymphatic: No Adenopathy ODALYS SANCHEZ MD Aug 28, 2020 07:14
--- NOTE | 2020-08-28 07:15 | Progress Note ---
Subjective Subjective Date Seen by Provider: Aug 28, 2020 Time Seen by Provider: 07:15 All Other Systems Reviewed All Other Systems Reviewed: Yes Objective Exam Vital Signs Vital Signs - First Documented 08/27/20 08/27/20 09:40 12:15 Temp 39.1 Pulse 79 Resp 18 B/P (MAP) 94/63 (73) Pulse Ox 95 O2 Delivery Room Air Capillary Refill : Less Than 3 Seconds General Appearance: Chronically ill, Moderate Distress Eyes: Bilateral Eye Normal Inspection, Bilateral Eye PERRL, Bilateral Eye EOMI HEENT: PERRL/EOMI, Pharynx Normal, Moist Mucous Membranes Neck: Full Range of Motion, Normal Inspection, Non Tender, Supple Respiratory: Lungs Clear, Normal Breath Sounds, No Accessory Muscle Use, No Respiratory Distress Cardiovascular: Regular Rate, Rhythm, No Edema, Normal Peripheral Pulses, Tachycardia Gastrointestinal: Normal Bowel Sounds, Non Tender, Soft Extremity: Normal Capillary Refill, Normal Inspection, No Pedal Edema Neurologic/Psychiatric: Alert, No Motor/Sensory Deficits, Normal Mood/Affect, Other (Person place but not time or situation) Results Lab Laboratory Tests 08/27/20 09:40: White Blood Count 19.9H, Red Blood Count 4.07L, Hemoglobin 12.6L, Hematocrit 38L , Mean Corpuscular Volume 94, Mean Corpuscular Hemoglobin 31, Mean Corpuscular Hemoglobin Concent 33, Red Cell Distribution Width 14.9H, Platelet Count 177, Mean Platelet Volume 12.3H, Immature Granulocyte % (Auto) 1, Neutrophils (%) (Auto) 81H, Lymphocytes (%) (Auto) 5L, Monocytes (%) (Auto) 13H, Eosinophils (%) (Auto) 0, Basophils (%) (Auto) 0, Neutrophils # (Auto) 16.2H, Lymphocytes # (Auto) 1.1, Monocytes # (Auto) 2.5H, Eosinophils # (Auto) 0.0, Basophils # (Auto) 0.1, Immature Granulocyte # (Auto) 0.1, Neutrophils % (Manual) 71, Lymphocytes % (Manual) 5, Monocytes % (Manual) 12, Basophils % (Manual) 1, Band Neutrophils 11, Atypical Lymphocytes 1, Blood Morphology Comment NORMAL, Urine Color YELLOW, Urine Clarity CLEAR, Urine pH 6.0, Urine Specific [place] 1.020, Urine Protein NEGATIVE, Urine Glucose (UA) NEGATIVE, Urine Ketones NEGATIVE, Urine Nitrite NEGATIVE, Urine Bilirubin NEGATIVE, Urine Urobilinogen 1.0, Urine Leukocyte Esterase TRACEH, Urine RBC (Auto) NEGATIVE, Urine RBC 0-2, Urine WBC 5-10H, Urine Squamous Epithelial Cells 0-2, Urine Crystals NONE, Urine Bacteria MODERATEH, Urine Casts NONE, Urine Mucus SMALLH, Urine Culture Indicated YES, So dium Level 138, Potassium Level 3.3L, Chloride Level 105, Carbon Dioxide Level 21, Anion Gap 12, Blood Urea Nitrogen 11, Creatinine 0.81, Estimat Glomerular Filtration Rate > 60, BUN/Creatinine Ratio 14, Glucose Level 164H, Lactic Acid Level 2.11*H, Calcium Level 8.2L, Corrected Calcium 8.8, Total Bilirubin 0.5, Aspartate Amino Transf (AST/SGOT) 66H, Alanine Aminotransferase (ALT/SGPT) 60H, Alkaline Phosphatase 136, Total Protein 5.9L, Albumin 3.2, Influenza Type A (RT- PCR) Not Detected, Influenza Type B (RT-PCR) Not Detected, SARS-CoV-2 RNA (RT- PCR) Not Detected 08/27/20 10:20: Group A Streptococcus Screen NEGATIVE 08/27/20 10:50: Prothrombin Time 14.8H, INR Comment 1.1, Activated Partial Thromboplast Time 37H 08/27/20 12:25: Lactic Acid Level 1.17 08/27/20 17:38: Glucometer 133H 08/27/20 23:07: Glucometer 103 08/28/20 05:55: White Blood Count 17.8H, Red Blood Count 3.79L, Hemoglobin 11.8L, Hematocrit 36L , Mean Corpuscular Volume 95, Mean Corpuscular Hemoglobin 31, Mean Corpuscular Hemoglobin Concent 33, Red Cell Distribution Width 15.0H, Platelet Count 148, Mean Platelet Volume 11.2, Immature Granulocyte % (Auto) 1, Neutrophils (%) (Auto) 79H, Lymphocytes (%) (Auto) 10L, Monocytes (%) (Auto) 9, Eosinophils (%) (Auto) 1, Basophils (%) (Auto) 0, Neutrophils # (Auto) 14.0H, Lymphocytes # (Auto) 1.8, Monocytes # (Auto) 1.7H, Eosinophils # (Auto) 0.2, Basophils # (Auto) 0.1, Immature Granulocyte # (Auto) 0.1, Sodium Level 140, Potassium Level 3.3L, Chloride Level 109H, Carbon Dioxide Level 22, Anion Gap 9, Blood Urea Nitrogen 9, Creatinine 0.65, Estimat Glomerular Filtration Rate > 60, BUN/Creatinine Ratio 14, Glucose Level 103, Calcium Level 8.5, Phosphorus Level 2.6, Magnesium Level 1.2L ODALYS CARDOZA MD Aug 28, 2020 07:15
--- NOTE | 2020-08-28 08:09 | Tele-ICU Progress Note ---
Subjective Date Seen by a Provider: Aug 28, 2020 Time Seen by a Provider: 09:43 Subjective/Events-last exam Sepsis - received 2 L NS , follow lactate , BP responded to IVF CXR ok Uti - s/p recent abx - doxycycline 2 weeks ago - started on cefepime , cx pending - exposure to covid - testing pending , flu neg A fib - off Eliquis ? 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 - as per pcp -assess needs for speach Tx Sepsis Event Evaluation Height, Weight, BMI Height: '" Weight: lbs. oz. kg; 25.53 BMI Method: Focused Exam Lactate Level 08/27/20 09:40: Lactic Acid Level 2.11*H 08/27/20 12:25: Lactic Acid Level 1.17 Time of Focused Exam: 11:30 Exam Exam Patient acknowledged, consented, and participated in this virtual visit which was conducted using real time audio/video Vital Signs Date Time Temp Pulse Resp B/P (MAP) Pulse Ox O2 Delivery O2 Flow Rate FiO2 08/28/20 07:49 36.7 97 Room Air 08/28/20 06:00 60 102/63 (76) 95 Room Air 08/28/20 05:00 50 95/48 (64) 95 Room Air 08/28/20 04:00 48 93/48 (63) Room Air 08/28/20 04:00 Room Air 08/28/20 03:00 49 96/60 (72) 97 Room Air 08/28/20 02:00 48 109/58 (75) 97 Room Air 08/28/20 01:00 53 91/57 (68) 97 Room Air 08/28/20 01:00 53 08/28/20 00:00 58 98/61 (73) 96 Room Air 08/28/20 00:00 Room Air 08/27/20 23:15 64 94/56 (69) 95 Room Air 08/27/20 22:15 65 97/53 (68) 97 Room Air 08/27/20 21:00 54 99/54 (69) 100 Room Air 08/27/20 20:00 66 88/52 (64) 96 Room Air 08/27/20 20:00 Room Air 08/27/20 19:00 66 08/27/20 19:00 66 103/43 (63) Room Air 08/27/20 18:19 37.0 08/27/20 16:00 Room Air 08/27/20 16:00 57 96/47 (63) 97 Room Air 08/27/20 15:00 62 133/64 (87) 100 Room Air 08/27/20 12:53 60 08/27/20 12:20 Room Air 08/27/20 12:15 67 105/49 (67) 97 Room Air 08/27/20 12:10 37.1 08/27/20 11:33 70 20 75/45 97 08/27/20 09:40 39.1 79 18 94/63 (73) 95 I & O 08/28/20 07:00 Intake Total 3710 ml Output Total 920 ml Balance 2790 ml Height & Weight Height: '" Weight: lbs. oz. kg; 25.53 BMI Method: General Appearance: Chronically ill, Moderate Distress HEENT: PERRL/EOMI, Pharynx Normal, Moist Mucous Membranes Neck: Full Range of Motion, Normal Inspection, Non Tender, Supple Respiratory: Lungs Clear, Normal Breath Sounds, No Accessory Muscle Use, No Respiratory Distress Cardiovascular: Regular Rate, Rhythm, No Edema, Normal Peripheral Pulses, Tachycardia Capillary Refill: Less Than 3 Seconds Peripheral Pulses: 1+ Dorsalis Pedis (R), 1+ Left Dors-Pedis (L) Extremity: Normal Capillary Refill, Normal Inspection, No Pedal Edema Neurologic/Psychiatric: Alert, No Motor/Sensory Deficits, Normal Mood/Affect, Other (Person place but not time or situation) Results Lab Laboratory Tests 08/27/20 09:40 08/28/20 05:55 Assessment/Plan Assessment/Plan Sepsis - received 2 L NS , follow lactate , BP responded to IVF Uti - s/p recent abx - doxycycline 2 weeks ago - started on cefepime , cx pending - exposure to covid - testing pending , flu neg No cultures back, continue abx A fib - off Eliquis ? 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 - as per pcp -assess needs for concepcion Ortiz Critical Care: Critically Ill Patient Time spent with patient (mins): 20 KATHERINE COLBERT MD Aug 28, 2020 08:09
[2020-08-28] MEDS: FINASTERIDE (PROSCAR) 5 MG TAB PO SCH (10:47)
[2020-08-28] MEDS ORDERED: CHOLESTYRAMINE 4 GM (QUESTRAN LITE, PREVALITE) PKT PO NR (13:15)
[2020-08-28] MEDS: NYSTATIN ORAL SUSP 5 ML UDC PO SCH ×2 (15:47→18:13)
[2020-08-28] MEDS: LACTOBACILLUS ACIDOPHILUS (PROBIOTIC) CAPSULE PO SCH ×2 (15:48→18:13)
[2020-08-28 16:41] VITALS: BP 131/72
[2020-08-29] MEDS: CEFEPIME 1,000 MG/SWFI 10 ML IV PUSH IV SCH ×10 (00:15→23:16)
[2020-08-29] MEDS: NYSTATIN ORAL SUSP 5 ML UDC PO SCH ×5 (00:16→23:16)
[2020-08-29] MEDS: inSUlin ASPART (NovoLOG) 1 UNIT/0.01 ML (CHARGE PER UNIT) SQ SCH ×2 (00:16→05:14)
[2020-08-29 03:46] LABS: BASOPHILS % (AUTO) 0 % (0-10); EOSINOPHILS # (AUTO) 0.2 10^3/uL (0.0-0.3); EOSINOPHILS % (AUTO) 1 % (0-10); HEMATOCRIT 34 % (40-54); HEMOGLOBIN 11.4 g/dL (13.3-17.7); LYMPHOCYTES # (AUTO) 1.7 10^3/uL (1.0-4.0); LYMPHOCYTES % (AUTO) 12 % (12-44); MEAN CORPUSCULAR HEMOGLOBIN 31 pg (25-34); MEAN CORPUSCULAR HGB CONC 33 g/dL (32-36); MEAN CORPUSCULAR VOLUME 93 fL (80-99); MEAN PLATELET VOLUME 12.3 fL (9.0-12.2); MONOCYTES # (AUTO) 1.5 10^3/uL (0.0-1.0); MONOCYTES % (AUTO) 10 % (0-12); NEUTROPHILS # (AUTO) 10.4 10^3/uL (1.8-7.8); NEUTROPHILS % (AUTO) 75 % (42-75); PLATELET COUNT 165 10^3/uL (130-400); WHITE BLOOD COUNT 13.9 10^3/uL (4.3-11.0)
[2020-08-29 03:56] LABS: CHLORIDE 106 MMOL/L (98-107); SODIUM 140 MMOL/L (135-145)
[2020-08-29 03:57] LABS: CALCIUM 8.8 MG/DL (8.5-10.1)
[2020-08-29 03:58] LABS: GLUCOSE 92 MG/DL (70-105)
[2020-08-29 04:00] LABS: CARBON DIOXIDE 22 MMOL/L (21-32)
[2020-08-29 04:02] LABS: CREATININE SERUM 0.56 MG/DL (0.60-1.30); GFR ESTIMATED > 60
[2020-08-29 04:03] LABS: BUN/CREATININE RATIO 13
[2020-08-29 04:05] LABS: MAGNESIUM 1.3 MG/DL (1.6-2.4)
[2020-08-29] MEDS: POTASSIUM CL 10MEQ/50ML IVPB 50 ML IV SCH ×4 (04:51→08:59)
[2020-08-29] MEDS: MAGNESIUM 1 GM/100 ML IVPB 100 ML IV SCH ×4 (04:51→08:59)
[2020-08-29] MEDS: KCL 20 MEQ TAB (K-DUR) PO SCH (04:51)
[2020-08-29] MEDS: LACTATED RINGERS 1,000 ML IV SCH ×4 (05:12→20:33)
[2020-08-29] MEDS: VASOPRESSIN INJECTION 20 UNIT in NS (IVPB) 100 ML IV SCH (05:13)
--- NOTE | 2020-08-29 08:39 | Progress Note ---
Subjective All Other Systems Reviewed All Other Systems Reviewed: Yes Objective Exam Vital Signs Vital Signs - First Documented 08/27/20 08/27/20 09:40 12:15 Temp 39.1 Pulse 79 Resp 18 B/P (MAP) 94/63 (73) Pulse Ox 95 O2 Delivery Room Air Capillary Refill : Less Than 3 Seconds General Appearance: Chronically ill, Moderate Distress Eyes: Bilateral Eye Normal Inspection, Bilateral Eye PERRL, Bilateral Eye EOMI HEENT: PERRL/EOMI, Pharynx Normal, Moist Mucous Membranes Neck: Full Range of Motion, Normal Inspection, Non Tender, Supple Respiratory: Lungs Clear, Normal Breath Sounds, No Accessory Muscle Use, No Respiratory Distress Cardiovascular: Regular Rate, Rhythm, No Edema, Normal Peripheral Pulses, Tachycardia Gastrointestinal: Normal Bowel Sounds, Non Tender, Soft Extremity: Normal Capillary Refill, Normal Inspection, No Pedal Edema Neurologic/Psychiatric: Alert, No Motor/Sensory Deficits, Normal Mood/Affect, Other (Person place but not time or situation) Results Lab Laboratory Tests 08/28/20 17:35: Glucometer 110 08/29/20 03:20: White Blood Count 13.9H, Red Blood Count 3.70L, Hemoglobin 11.4L, Hematocrit 34L , Mean Corpuscular Volume 93, Mean Corpuscular Hemoglobin 31, Mean Corpuscular Hemoglobin Concent 33, Red Cell Distribution Width 14.8H, Platelet Count 165, Mean Platelet Volume 12.3H, Immature Granulocyte % (Auto) 1, Neutrophils (%) (Auto) 75, Lymphocytes (%) (Auto) 12, Monocytes (%) (Auto) 10, Eosinophils (%) (Auto) 1, Basophils (%) (Auto) 0, Neutrophils # (Auto) 10.4H, Lymphocytes # (Auto) 1.7, Monocytes # (Auto) 1.5H, Eosinophils # (Auto) 0.2, Basophils # (Auto) 0.0, Immature Granulocyte # (Auto) 0.1, Sodium Level 140, Potassium Level 3.0L, Chloride Level 106, Carbon Dioxide Level 22, Anion Gap 12, Blood Urea Nitrogen 7, Creatinine 0.56L, Estimat Glomerular Filtration Rate > 60, BUN/Creatinine Ratio 13, Glucose Level 92, Calcium Level 8.8, Phosphorus Level 3.0, Magnesium Level 1.3L Microbiology 08/28/20 C. difficile GDH Antigen & Toxins - Final, Complete 08/27/20 MRSA Screen - Final, Complete MRSA not isolated 08/27/20 Blood Culture - Preliminary, Resulted No growth 08/27/20 Urine Culture - Final, Complete NO GROWTH ODALYS CARDOZA MD Aug 29, 2020 08:39
[2020-08-29] MEDS: FINASTERIDE (PROSCAR) 5 MG TAB PO SCH (09:03)
[2020-08-29] MEDS: LACTOBACILLUS ACIDOPHILUS (PROBIOTIC) CAPSULE PO SCH ×3 (09:04→18:14)
[2020-08-29] MEDS: CHOLESTYRAMINE 4 GM (QUESTRAN LITE, PREVALITE) PKT PO SCH (09:25)
[2020-08-29] MEDS: ACETAMINOPHEN 325 MG TABLET PO PRN ×2 (12:46→19:59)
--- NOTE | 2020-08-29 17:30 | Tele-ICU Progress Note ---
Subjective Date Seen by a Provider: Aug 29, 2020 Time Seen by a Provider: 09:16 Sepsis Event Evaluation Height, Weight, BMI Height: '" Weight: lbs. oz. kg; 25.53 BMI Method: Focused Exam Lactate Level 08/27/20 09:40: Lactic Acid Level 2.11*H 08/27/20 12:25: Lactic Acid Level 1.17 Time of Focused Exam: 11:30 Exam Exam Patient acknowledged, consented, and participated in this virtual visit which was conducted using real time audio/video Vital Signs Date Time Temp Pulse Resp B/P (MAP) Pulse Ox O2 Delivery O2 Flow Rate FiO2 08/29/20 16:04 36.5 20 114/65 (81) 91 Room Air 08/29/20 13:00 36.1 08/29/20 13:00 127/72 (90) 95 Room Air 08/29/20 12:00 122/76 (91) 94 Room Air 08/29/20 11:00 111/66 (81) 96 Room Air 08/29/20 10:00 109/60 (76) 95 Room Air 08/29/20 09:08 36.0 08/29/20 09:00 93 Room Air 08/29/20 09:00 86 113/65 (81) 96 Room Air 08/29/20 08:06 36.8 08/29/20 08:00 65 109/54 (72) 94 Room Air 08/29/20 07:00 65 08/29/20 07:00 69 107/58 (74) 95 Room Air 08/29/20 06:00 55 106/49 (68) 93 Room Air 08/29/20 05:00 62 100/53 (69) 94 Room Air 08/29/20 04:00 79 93 Room Air 08/29/20 04:00 Room Air 08/29/20 03:00 57 105/50 (68) 93 Room Air 08/29/20 02:00 55 98/58 (71) 93 Room Air 08/29/20 01:00 65 08/29/20 01:00 74 104/55 (71) 95 Room Air 08/29/20 00:00 58 102/50 (67) 93 Room Air 08/28/20 23:59 Room Air 08/28/20 23:00 56 101/64 (76) 94 Room Air 08/28/20 22:00 64 127/68 (87) 96 Room Air 08/28/20 21:00 64 106/61 (76) 93 Room Air 08/28/20 20:00 Room Air 08/28/20 20:00 66 113/66 (82) 95 Room Air 08/28/20 19:56 37.0 08/28/20 19:00 60 08/28/20 19:00 53 130/74 (92) 95 Room Air 08/28/20 18:00 49 141/74 (96) 97 Room Air I & O 08/29/20 07:00 Intake Total 900 ml Output Total 2275 ml Balance -1375 ml Height & Weight Height: '" Weight: lbs. oz. kg; 25.53 BMI Method: General Appearance: Chronically ill, Moderate Distress HEENT: PERRL/EOMI, Pharynx Normal, Moist Mucous Membranes Neck: Full Range of Motion, Normal Inspection, Non Tender, Supple Respiratory: Lungs Clear, Normal Breath Sounds, No Accessory Muscle Use, No Respiratory Distress Cardiovascular: Regular Rate, Rhythm, No Edema, Normal Peripheral Pulses, Tachycardia Capillary Refill: Less Than 3 Seconds Peripheral Pulses: 1+ Dorsalis Pedis (R), 1+ Left Dors-Pedis (L) Extremity: Normal Capillary Refill, Normal Inspection, No Pedal Edema Neurologic/Psychiatric: Alert, No Motor/Sensory Deficits, Normal Mood/Affect, Other (Person place but not time or situation) Results Lab Laboratory Tests 08/28/20 05:55 08/29/20 03:20 08/29/20 13:30 Assessment/Plan Assessment/Plan (Tele-ICU Physician , Progress Note ) Available chart/ vitals / labs / Images reviewed Video assessment done using teleICU camera, rest of exam as per RN Afebrile hemodynamically stable, no pressors, I/O = neg 800 Drips: LR As per RN exam : Consultants: Hospital course: 08/27 with weakness and hypotension , recent kidney stone and abx s outpt A/P Sepsis - received 2 L NS , follow lactate , BP responded to IVF - neg c diff , throat , blood urne cx 08/27 Uti - s/p recent abx - doxycycline 2 weeks ago - started on cefepime , cx pending - exposure to covid - testing pending , flu neg A fib - sinus - off Eliquis ? 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 - as per pcp -assess needs for speach Tx Lines : 08/27 PICC [place]: 08/27 placed in ER OG: Nutrition: npo VTE Prophylaxis: scd Stress Ulcer Prophylaxis: na Glycemic Control: + Plans in collaboration with bedside consultants and IM MDs. Discussed with RN to reach out if any questions or concerns A total of 22 minutes of critical care time was devoted to this patient today, required to treat and/or prevent further deterioration of critical care condition ( as above ) . DIONI MAYERS MD Aug 29, 2020 17:30
[2020-08-30] MEDS: LACTATED RINGERS 1,000 ML IV SCH ×2 (03:13→10:53)
[2020-08-30] MEDS: NYSTATIN ORAL SUSP 5 ML UDC PO SCH ×2 (05:27→10:48)
[2020-08-30] MEDS: CEFEPIME 1,000 MG/SWFI 10 ML IV PUSH IV SCH ×6 (05:27→14:24)
[2020-08-30] MEDS: ACETAMINOPHEN 325 MG TABLET PO PRN (06:05)
[2020-08-30 06:18] LABS: BASOPHILS % (AUTO) 0 % (0-10); EOSINOPHILS # (AUTO) 0.2 10^3/uL (0.0-0.3); EOSINOPHILS % (AUTO) 2 % (0-10); HEMATOCRIT 36 % (40-54); LYMPHOCYTES # (AUTO) 1.3 10^3/uL (1.0-4.0); LYMPHOCYTES % (AUTO) 13 % (12-44); MEAN CORPUSCULAR HEMOGLOBIN 31 pg (25-34); MEAN CORPUSCULAR HGB CONC 33 g/dL (32-36); MEAN CORPUSCULAR VOLUME 93 fL (80-99); MEAN PLATELET VOLUME 11.9 fL (9.0-12.2); MONOCYTES # (AUTO) 1.1 10^3/uL (0.0-1.0); MONOCYTES % (AUTO) 11 % (0-12); NEUTROPHILS # (AUTO) 7.3 10^3/uL (1.8-7.8); NEUTROPHILS % (AUTO) 73 % (42-75); PLATELET COUNT 210 10^3/uL (130-400); WHITE BLOOD COUNT 9.9 10^3/uL (4.3-11.0)
[2020-08-30 06:27] LABS: CHLORIDE 103 MMOL/L (98-107); POTASSIUM 2.9 MMOL/L (3.6-5.0); SODIUM 140 MMOL/L (135-145)
[2020-08-30 06:29] LABS: CALCIUM 8.1 MG/DL (8.5-10.1); GLUCOSE 108 MG/DL (70-105)
[2020-08-30 06:31] LABS: CARBON DIOXIDE 23 MMOL/L (21-32)
[2020-08-30 06:33] LABS: CREATININE SERUM 0.63 MG/DL (0.60-1.30); GFR ESTIMATED > 60
[2020-08-30 06:34] LABS: BUN/CREATININE RATIO 8
[2020-08-30 06:35] LABS: MAGNESIUM 1.7 MG/DL (1.6-2.4)
[2020-08-30] MEDS: LACTOBACILLUS ACIDOPHILUS (PROBIOTIC) CAPSULE PO SCH ×2 (08:50→14:26)
[2020-08-30] MEDS: FINASTERIDE (PROSCAR) 5 MG TAB PO SCH (08:50)
[2020-08-30] MEDS: CHOLESTYRAMINE 4 GM (QUESTRAN LITE, PREVALITE) PKT PO SCH (08:51)
[2020-08-30] MEDS ORDERED: KCL 20 MEQ TAB (K-DUR) PO ONE (09:45)
[2020-08-30] MEDS ORDERED: NYST1000 PO (13:01)
[2020-08-30] MEDS ORDERED: ATOR80TA76 PO (13:01)
[2020-08-30] MEDS ORDERED: CEFD300C3 PO (13:01)
[2020-08-30] MEDS ORDERED: CHOL4PAC3 PO (13:01)
[2020-08-30] MEDS ORDERED: CARV3.122 PO (13:01)
[2020-08-30] MEDS ORDERED: LACT1CAP87 PO (13:01)
--- NOTE | 2020-08-30 13:05 | Discharge Inst-Simple/Standard ---
Discharge Inst-Standard Reconcile Patient Problems Problems Reviewed?: Yes Discharge Medications New, Converted or Re-Newed RX: Transmitted to Pharmacy Patient Instructions/Follow Up Plan of Care/Instructions/FU: 1 WK FOLLOW UP WITH [facility] ON 09/01/2020 AT MIDNIGHT (OR EALIER IF RELEASED BY [facility]) Activity as Tolerated: Yes Discharge Diet: Regular Diet Health Concerns: DIARRHEA COVID EXPOSURE WEAKNESS POST STROKE WEAKNESS HYPOTENSION HYPOKALEMIA Return to The Hospital For: ANY CONCERN FOR ACUTE SHORTNESS OF BREATH, WORSENING WEAKNESS, DIZZINESS, OR OTHER SYMPTOMS OF LIFETHREATENING ILLNESS OR INJURY Medication List: Active Scripts Active Acidophilus Lactobacilli (Lactobacillus Acidophilus) 1 Each Capsule 1 Each PO TID Cefdinir 300 Mg Capsule 300 Mg PO BID Prevalite Packet (Cholestyramine/Aspartame) 4 Gm Powd.pack 2 Gm PO BID HOLD IF HAVING CONSTIPATION Nystatin 100,000 Unit/1 Ml Oral.susp 5 Ml PO Q6HR Atorvastatin Calcium 80 Mg Tablet 80 Mg PO HS Carvedilol 3.125 Mg Tablet 3.125 Mg PO UD 1/2 TAB BID Reported Tylenol Extra Strength (Acetaminophen) 500 Mg Tablet 500-1,000 Mg PO Q8H PRN Sertraline HCl 100 Mg Tablet 100 Mg PO HS Klor-Con M20 (Potassium Chloride) 20 Meq Tab.er.prt 20 Meq PO DAILY Allopurinol 100 Mg Tablet 100 Mg PO 1600 Flomax (Tamsulosin HCl) 0.4 Mg Cap 0.4 Mg PO 1900 Finasteride 5 Mg Tablet 5 Mg PO DAILY Lab results: Laboratory Tests Test 08/29/20 13:30 08/30/20 05:47 Range/Units Potassium Level 3.0 L 2.9 L 3.6-5.0 MMOL/L White Blood Count 9.9 4.3-11.0 10^3/uL Red Blood Count 3.89 L 4.30-5.52 10^6/uL Hemoglobin 12.0 L 13.3-17.7 g/dL Hematocrit 36 L 40-54 % Mean Corpuscular Volume 93 80-99 fL Mean Corpuscular Hemoglobin 31 25-34 pg Mean Corpuscular Hemoglobin Concent 33 32-36 g/dL Red Cell Distribution Width 14.6 H 10.0-14.5 % Platelet Count 210 130-400 10^3/uL Mean Platelet Volume 11.9 9.0-12.2 fL Immature Granulocyte % (Auto) 1 % Neutrophils (%) (Auto) 73 42-75 % Lymphocytes (%) (Auto) 13 12-44 % Monocytes (%) (Auto) 11 0-12 % Eosinophils (%) (Auto) 2 0-10 % Basophils (%) (Auto) 0 0-10 % Neutrophils # (Auto) 7.3 1.8-7.8 10^3/uL Lymphocytes # (Auto) 1.3 1.0-4.0 10^3/uL Monocytes # (Auto) 1.1 H 0.0-1.0 10^3/uL Eosinophils # (Auto) 0.2 0.0-0.3 10^3/uL Basophils # (Auto) 0.0 0.0-0.1 10^3/uL Immature Granulocyte # (Auto) 0.1 0.0-0.1 10^3/uL Sodium Level 140 135-145 MMOL/L Chloride Level 103 98-107 MMOL/L Carbon Dioxide Level 23 21-32 MMOL/L Anion Gap 14 5-14 MMOL/L Blood Urea Nitrogen 5 L 7-18 MG/DL Creatinine 0.63 0.60-1.30 MG/DL Estimat Glomerular Filtration Rate > 60 BUN/Creatinine Ratio 8 Glucose Level 108 H 70-105 MG/DL Calcium Level 8.1 L 8.5-10.1 MG/DL Phosphorus Level 3.0 2.3-4.7 MG/DL Magnesium Level 1.7 1.6-2.4 MG/DL My orders: Orders - ODALYS CARDOZA MD Transfer - Bed/Room/Location (08/29/20 13:55) Cbc With Automated Diff (08/30/20 03:00) Basic Metabolic Panel (08/30/20 03:00) Magnesium (08/30/20 03:00) Phosphorus (08/30/20 03:00) Potassium Chloride (Tablet) (K Dur Table (08/30/20 09:45) Attending Discharge Inpt/Inobs (08/30/20 12:56) ODALYS CARDOZA MD Aug 30, 2020 13:05
== END 2020-08-30 17:25 | disposition home health service (06) | DRG 871 ==
LOC: EDUNIT# 09:38 → ER 09:39 → ICU 12:01 → 4TH 08-29 14:01
PROVIDERS: ADMIT Family Medicine; ATTEND Family Medicine
DX: A41.9 Sepsis, unspecified organism (principal); R65.21 Severe sepsis with septic shock; N39.0 Urinary tract infection, site not specified; Z20.822 Contact with and (suspected) exposure to COVID-19; E78.00 Pure hypercholesterolemia, unspecified; I10 Essential (primary) hypertension; N40.0 Benign prostatic hyperplasia without lower urinary tract symptoms; M19.90 Unspecified osteoarthritis, unspecified site; F41.9 Anxiety disorder, unspecified; F32.9 Major depressive disorder, single episode, unspecified; R19.7 Diarrhea, unspecified; Z86.73 Personal history of transient ischemic attack (TIA), and cerebral infarction without residual deficits
CPT/HCPCS: 36415; 36569; 51702; 71045; 76937; 80048; 80053; 81000; 82947; 83605; 83735; 84100; 84132; 85007; 85025; 85027; 85610; 85730; 87040; 87081; 87088; 87324; 87430; 87449; 87636

== ENCOUNTER 2021-03-05 05:38 | Outpatient (CLI) | payer MEDICARE, OTHER ==
[~2021-03-05] VITALS: Ht 182.9 cm; Wt 80.1 kg
[~2021-03-05 05:38] MED LIST changes: +ACET-2267 PO; +CARV3.122 PO; +CEFD300C3 PO; +CHOL4PAC3 PO; +FINA5TAB6 PO; +LACT1CAP87 PO; +NYST1000 PO; +POTA-169 PO; -POTA20TA8 PO; +TMSL.4C PO
[2021-03-06] MEDS ORDERED: ATOR80TA76 PO (12:40)
[2021-03-06] MEDS ORDERED: ALLO100T PO (12:40)
[2021-03-06] MEDS ORDERED: CARV3.122 PO (12:40)
[2021-03-06] MEDS ORDERED: APIX5TAB PO (12:40)
[2021-03-06] MEDS ORDERED: SERT150C PO (12:40)
[2021-03-06] MEDS ORDERED: CLOP75TA28 PO (12:40)
== END 2021-03-06 13:03 | disposition home or self-care (01) ==
LOC: PREOP 05:38
PROVIDERS: ATTEND Specialist
DX: Z01.818 Encounter for other preprocedural examination (principal)

== ENCOUNTER 2021-03-14 09:17 | Day surgery (SDC) | payer MEDICARE, OTHER ==
[~2021-03-14] VITALS: Ht 182.9 cm; Wt 80.1 kg
[~2021-03-14 09:17] MED LIST changes: +CLOP75TA28 PO; +SERT150C PO
--- OUTSIDE RECORDS SUMMARY | 2021-03-14 09:21 | XMS REPORT | CCD ---
Author Author Derek Sanchez Organization Deb Sanchez MD, [facility] Address [address] [place] [address] Phone Care Team Providers Care Nurse Head Name Role Phone Deb Sanchez PP Unavailable CCM Unavailable Summary Purpose Interface Exchange Insurance Providers Payer name Policy type / Coverage type Covered democrat ID Effective Begin Date Effective End Date WPS Medicare Part B Medicare Part B [id number] Unknown Unkno wn Aet[employer] Medicare Part B [id number] Unknown Unknown Family history Mother Diagnosis Age At Onset Heart Attack Unknown Father Diagnosis Age At Onset Colon cancer Unknown Hypertension Unknown Social History Social History Element Codes Description Effective Dates Marital status Unknown rebeca 04/17/2020 Number of children Unknown 4 04/17/2020 Employment Unknown Retired 04/17/[address]: 6074087 Quit less than 10 years ago 0 04/17/2020 Alcohol history Unknown occasionally drinks alcohol 04/08 Allergies, Adverse Reactions, Alerts Substance Reaction Codes Entered Date Inactivated Date Status Penicillin rash Unknown 05/06/2020 No Inactive Date Active CODEINE rash Unknown 05/06/2020 No Inactive Date Active Problems Condition Codes Effective Dates Condition Status Benign prostatic hyperplasia with urinary frequency IC D-10: N40.1 ICD-9: 600.01 01/01/2021 Active Essential (primary) hypertension ICD-10: I10 ICD-9: 401.1 04/17/2020 Active Frequency of micturition ICD-10: R35.0 01/01/2021 Active Generalized anxiety disorder ICD-10: F41.9 ICD-9: 300.00 01/01/2021 Active Need for immunization against influenza ICD-10: Z23 ICD-9: V04.81 01/01/2021 Active Primary insomnia ICD-10: F51.01 ICD-9: 307.42 01/01/2021 Active Cerebrovascular accident (CVA) due to other mechanism ICD-10: I63.89 ICD-9: 434.91 04/17/2020 Active Occipital headache ICD-10: R51.9 ICD-9: 784.0 10/02/2020 Active Generalized anxiety disorder ICD-10: F41.1 ICD-9: 300.00 09/06/2020 Active Major depressive disorder, single episode, moderate IC D-10: F32.1 ICD-9: 296.22 09/06/2020 Active Skin change ICD-10: R23.9 ICD-9: 782.9 09/13/2020 Active Hospital discharge follow-up ICD-10: Z09 ICD-9: V67.59 09/06/2020 Active Mixed hyperlipidemia ICD-10: E78.2 ICD-9: 272.2 04/17/2020 Active Dysuria ICD-10: R30.0 ICD-9: 788.1 05/08/2020 Active Generalized weakness ICD-10: R53.1 ICD-9: 780.79 04/17/2020 Active Orthostatic hypotension ICD-10: I95.1 ICD-9: 458.0 07/01/2020 Active Acute cystitis with hematuria ICD-10: N30.01 ICD-9: 595.0 05/08/2020 Active Urinary frequency ICD-10: R35.0 ICD-9: 788.41 05/02/2020 Active Medications Medication Codes Instructions Start Date Stop Date Status Fill Instructions carvedilol 3.125 mg tablet RxNorm: 679047 Take 1 Tablet(s) Oral two times a day 02/20/2021 07/19/2021 Active carvedilol 3.125 mg tablet RxNorm: 402117 Take 1 Tablet(s) Oral two times a day 01/24/2021 01/24/2021 Inactive amitriptyline 10 mg tablet RxNorm: 502679 Take 1 Tablet(s) Oral every evening 10/02/2020 01/29/2021 Inactive sertraline 50 mg tablet RxNorm: 366440 Take 1 Tablet(s) Oral every day to take with 100mg to equal 150mg daily 09/13/2020 09/07/2021 Active Zoloft 25 mg tablet RxNorm: 517641 Take 1 Tablet(s) Ora l every day in addition to the 100mg daily to equal 125mg daily 09/06/2020 10/02/2020 Inactive tamsulosin 0.4 mg capsule RxNorm: 328205 1 Capsule(s) Oral every da y 08/26/2020 No Stop Date Active carvedilol 3.125 mg tablet RxNorm: 406758 Take 1 Tablet(s) Oral two times a day 08/21/2020 12/18/2020 Inactive doxycycline hyclate 100 mg capsule RxNorm: 1438609 1 Cap purvi(s) Oral two times a day 08/12/2020 08/22/2020 Inactive Eliquis 5 mg tablet RxNorm: 5524896 1 Tablet(s) Oral two times a da y 05/17/2020 05/12/2021 Active cephalexin 500 mg capsule RxNorm: 048699 1 Capsule(s) Oral thre e times a day 05/17/2020 05/24/2020 Inactive cephalexin 500 mg capsule RxNorm: 369684 1 Capsule(s) Oral thre e times a day 05/17/2020 05/16/2020 Inactive sertraline 100 mg tablet RxNorm: 134431 1 Tablet(s) Oral every night at bedtime 05/16/2020 05/11/2021 Active Plavix 75 mg tablet RxNorm: 975823 1 Tablet(s) Oral every day 05/1605/11/2021 Active potassium chloride ER 20 mEq tablet,extended release(p art/cryst) RxNorm: 8922742 1 Tablet(s) Oral every day 05/16/2020 05/11/2021 Active m ay fill the 20meq capsule you have been filling atorvastatin 80 mg tablet RxNorm: 074249 1 Tablet(s) Or al every night at bedtime 05/16/2020 05/11/2021 Active carvedilol 12.5 mg tablet RxNorm: 611803 1 Tablet(s) Oral two t imes a day 05/16/2020 08/20/2020 Inactive allopurinol 100 mg tablet RxNorm: 409238 1 Tablet(s) Oral every day 05/16/2020 09/12/2020 Inactive cephalexin 500 mg capsule RxNorm: 274149 1 Capsule(s) O ral three times a day probiotic tid x 10 days 05/06/2020 05/15/2020 Inactive cephalexin 500 mg capsule RxNorm: 521873 1 Capsule(s) O ral three times a day probiotic tid x 10 days 05/06/2020 05/05/2020 Inactive Eliquis 5 mg tablet RxNorm: 2173932 1 Tablet(s) Oral two times a da y 04/21/2020 05/16/2020 Inactive carvedilol 12.5 mg tablet RxNorm: 204100 1 Tablet(s) Oral two t imes a day 04/21/2020 05/15/2020 Inactive potassium chloride ER 10 mEq tablet,extended release RxNorm: 824309 1 Tablet(s) Oral every day 04/21/2020 05/15/2020 Inactive allopurinol 100 mg tablet RxNorm: 325804 1 Tablet(s) Oral every day 04/21/2020 05/15/2020 Inactive sertraline 100 mg tablet RxNorm: 167786 1 Tablet(s) Oral every night at bedtime 04/21/2020 05/15/2020 Inactive atorvastatin 80 mg tablet RxNorm: 368588 1 Tablet(s) Or al every night at bedtime 04/21/2020 05/15/2020 Inactive Plavix 75 mg tablet RxNorm: 142235 1 Tablet(s) Oral every day 04/2105/15/2020 Inactive finasteride oral RxNorm: 28932 oral 08/26/2020 Active Medication Administered No Medication Administered data Immunizations Vaccine Codes Dose Date Status Influenza CVX: 135 0.5 01/01/2021 Complete Results Observation Observation Code Item Item Code Result Date S ervice Location Cbc With Differential Ord2 WBC 7.15 K/ul 09/07/19 21 Unknown Cbc With Differential Ord2 RBC 4.11 M/ul 09/07/19 21 Unknown Cbc With Differential Ord2 HGB 12.8 g/dl 09/07/19 21 Unknown Cbc With Differential Ord2 HCT 40.2 % 09/07/19 21 Unknown Cbc With Differential Ord2 Neut% 64.6 % 09/07/19 21 Unknown Cbc With Differential Ord2 Lymph% 22.0 % 09/07/19 21 Unknown Cbc With Differential Ord2 MCV 97.8 fl 09/07/19 21 Unknown Cbc With Differential Ord2 MCH 31.1 pg 09/07/19 21 Unknown Cbc With Differential Ord2 Dickens% 10.3 % 09/07/19 21 Unknown Cbc With Differential Ord2 Eos% 2.5 % 09/07/19 21 Unknown Cbc With Differential Ord2 MCHC 31.8 pg 09/07/19 21 Unknown Cbc With Differential Ord2 PLT 447 K/ul 09/07/19 21 Unknown Cbc With Differential Ord2 Baso% 0.6 % 09/07/19 21 Unknown Cbc With Differential Ord2 RDW 15.0 % 09/07/19 21 Unknown Cbc With Differential Ord2 Neut ABS# 4.62 K/ul 09/07/19 21 Unknown Cbc With Differential Ord2 Lymph ABS# 1.57 K/ul 021 Unknown Cbc With Differential Ord2 Dickens ABS# 0.7 K/ul 09/07/19 21 Unknown Cbc With Differential Ord2 Eos ABS# 0.2 K/ul 09/07/19 21 Unknown Cbc With Differential Ord2 Baso ABS# 0.0 K/ul 09/07/19 21 Unknown Comp Metabolic Ggm211 NA 140 mEq/L 09/06/2020 Unkn own Comp Metabolic Zuw881 K 4.3 mEq/L 09/06/2020 Unkn own Comp Metabolic Wnf773 CL 104 mEq/L 09/06/2020 Unkn own Comp Metabolic Bgw561 CO2 29.0 mEq/L 09/06/2020 Unk nown Comp Metabolic Hnl620 ANION GAP 11 09/06/2020 Unkn own Comp Metabolic Vwy076 GLUCOSE 109 mg/dL 09/06/2020 Unkn own Comp Metabolic Oic129 Creat 0.6 mg/dL 09/06/2020 Unkn own Comp Metabolic Rlj747 eGFR 153 ml/min/1.73m2 021 Unknown Comp Metabolic Kbj658 BUN 9 mg/dL 09/06/2020 Unkn own Comp Metabolic Fgy013 B/C Ratio 16.1 Ratio 09/06/2020 Unk nown Comp Metabolic Nzg570 CALCIUM 9.1 mg/dL 09/06/2020 Unkn own Comp Metabolic Mqt295 ALK PHOS 128 U/L 09/06/2020 Unkn own Comp Metabolic Auz286 AST(SGOT) 20 U/L 09/06/2020 Unkn own Comp Metabolic Axb042 ALT(SGPT) 19 U/L 09/06/2020 Unkn own Comp Metabolic Hly365 BILI T 0.4 mg/dL 09/06/2020 Unkn own Comp Metabolic Lfy524 ALBUMIN 3.5 g/dL 09/06/2020 Unkn own Comp Metabolic Faa804 TPRO 6.3 g/dL 09/06/2020 Unkn own Comp Metabolic Jkz417 GLOB 2.8 g/dL 09/06/2020 Unkn own Comp Metabolic Fds474 A/G Ratio 1.3 Ratio 09/06/2020 Unkn own Comp Metabolic Zgr105 Osmo 279 mOsmo 09/06/2020 Unkn own CULTURE, URINE M100 URINE CULTURE See Note 08/15/2020 Unknown Comp Metabolic Izx268 NA 143 mEq/L 08/12/2020 Unkn own Comp Metabolic Hbx197 K 4.0 mEq/L 08/12/2020 Unkn own Comp Metabolic Efs018 CL 108 mEq/L 08/12/2020 Unkn own Comp Metabolic Yjn599 CO2 27.0 mEq/L 08/12/2020 Unk nown Comp Metabolic Ryc163 ANION GAP 12 08/12/2020 Unkn own Comp Metabolic Vlx675 GLUCOSE 109 mg/dL 08/12/2020 Unkn own Comp Metabolic Vht152 Creat 0.7 mg/dL 08/12/2020 Unkn own Comp Metabolic Ued396 eGFR 129 ml/min/1.73m2 021 Unknown Comp Metabolic Bio173 BUN 9 mg/dL 08/12/2020 Unkn own Comp Metabolic Qzv162 B/C Ratio 13.8 Ratio 08/12/2020 Unk nown Comp Metabolic Yyi293 CALCIUM 9.1 mg/dL 08/12/2020 Unkn own Comp Metabolic Qqb221 ALK PHOS 120 U/L 08/12/2020 Unkn own Comp Metabolic Slk514 AST(SGOT) 21 U/L 08/12/2020 Unkn own Comp Metabolic Iwy037 ALT(SGPT) 19 U/L 08/12/2020 Unkn own Comp Metabolic Ctd481 BILI T 0.4 mg/dL 08/12/2020 Unkn own Comp Metabolic Zok945 ALBUMIN 3.9 g/dL 08/12/2020 Unkn own Comp Metabolic Ftn132 TPRO 6.3 g/dL 08/12/2020 Unkn own Comp Metabolic Lsn405 GLOB 2.4 g/dL 08/12/2020 Unkn own Comp Metabolic Lxx832 A/G Ratio 1.6 Ratio 08/12/2020 Unkn own Comp Metabolic Enk208 Osmo 284 mOsmo 08/12/2020 Unkn own Cbc With Differential Ord2 WBC 8.34 K/ul 08/13/19 21 Unknown Cbc With Differential Ord2 RBC 4.43 M/ul 08/13/19 21 Unknown Cbc With Differential Ord2 HGB 14.1 g/dl 08/13/19 21 Unknown Cbc With Differential Ord2 Neut% 66.1 % 08/13/19 21 Unknown Cbc With Differential Ord2 HCT 43.9 % 08/13/19 21 Unknown Cbc With Differential Ord2 MCV 99.1 fl 08/13/19 21 Unknown Cbc With Differential Ord2 Lymph% 18.9 % 08/13/19 21 Unknown Cbc With Differential Ord2 MCH 31.8 pg 08/13/19 21 Unknown Cbc With Differential Ord2 Dickens% 12.4 % 08/13/19 21 Unknown Cbc With Differential Ord2 MCHC 32.1 pg 08/13/19 21 Unknown Cbc With Differential Ord2 Eos% 2.2 % 08/13/19 21 Unknown Cbc With Differential Ord2 PLT 203 K/ul 08/13/19 21 Unknown Cbc With Differential Ord2 Baso% 0.4 % 08/13/19 21 Unknown Cbc With Differential Ord2 RDW 15.7 % 08/13/19 21 Unknown Cbc With Differential Ord2 Neut ABS# 5.52 K/ul 08/13/19 21 Unknown Cbc With Differential Ord2 Lymph ABS# 1.58 K/ul 021 Unknown Cbc With Differential Ord2 Dickens ABS# 1.0 K/ul 08/13/19 21 Unknown Cbc With Differential Ord2 Eos ABS# 0.2 K/ul 08/13/19 21 Unknown Cbc With Differential Ord2 Baso ABS# 0.0 K/ul 08/13/19 21 Unknown CULTURE, URINE M100 URINE CULTURE See Note 07/15/2020 Unknown Urinalysis Ord28 U-Color Yellow 07/10/2020 Unknown Urinalysis Ord28 U-Clarity Cloudy 07/10/2020 Unknown Urinalysis Ord28 U-Gluc Negative 07/10/2020 Unknown Urinalysis Ord28 U-Bili Small 07/10/2020 Unknown Urinalysis Ord28 U-Ketone Trace 07/10/2020 Unknown Urinalysis Ord28 U-SG 1.020 07/10/2020 Unknown Urinalysis Ord28 U-Blood Large 07/10/2020 Unknown Urinalysis Ord28 U-pH 5.5 07/10/2020 Unknown Urinalysis Ord28 U-Protein 30 mg/dL 07/10/2020 Unknown Urinalysis Ord28 U-Urobilin 0.2 E.U./dL E.U./dL 07/11/19 21 Unknown Urinalysis Ord28 U-Nitrites Negative 07/10/2020 Unknown Urinalysis Ord28 U-Leuk Negative 07/10/2020 Unknown Urinalysis Ord28 U-Bact TRACE 07/10/2020 Unknown Urinalysis Ord28 U-Squamous Epi 5-10 per/HPF 07/10/2020 Unknown Urinalysis Ord28 U-Crystal CALCIUM OXALATE per/HPF 07/10 Unknown Urinalysis Ord28 U-Mucus 1+ 07/10/2020 Unknown Urinalysis Ord28 U-Renal tubular epi None Unknown Urinalysis Ord28 U-RBC 10-20 per/HPF 07/10/2020 Unkn own Urinalysis Ord28 U-Transitional epi None per/HPF 021 Unknown Urinalysis Ord28 U-WBC 0-2 per/HPF 07/10/2020 Unknow n Urinalysis Ord28 U-Cast None per/lpf 07/10/2020 Unkno wn Urinalysis Ord28 U-VOL VOLUME SUFFICIENT (10mL) 07/2020 Unknown Urinalysis Ord28 U-Com Urine saved if culture needed (specimen acceptable for 48 hours from collection if refrigerated) 07/10/2020 Unknown Urinalysis Ord28 U-Yeast NEGATIVE 07/10/2020 Unknown CULTURE, URINE M100 URINE CULTURE See Note 05/20/2020 Unknown Urinalysis Ord28 U-Color Red 05/17/2020 Unknown Urinalysis Ord28 U-Clarity Cloudy 05/17/2020 Unknown Urinalysis Ord28 U-Gluc Negative 05/17/2020 Unknown Urinalysis Ord28 U-Bili Moderate 05/17/2020 Unknown Urinalysis Ord28 U-Ketone 15 mg/dL 05/17/2020 Unknown Urinalysis Ord28 U-SG 1.015 05/17/2020 Unknown Urinalysis Ord28 U-Blood Large 05/17/2020 Unknown Urinalysis Ord28 U-pH 5.5 05/17/2020 Unknown Urinalysis Ord28 U-Protein >=300 mg/dL 05/17/2020 Unkno wn Urinalysis Ord28 U-Urobilin 1.0 E.U./dL E.U./dL 05/18/19 21 Unknown Urinalysis Ord28 U-Nitrites Positive 05/17/2020 Unknown Urinalysis Ord28 U-Leuk Negative 05/17/2020 Unknown Urinalysis Ord28 U-Bact 2+ 05/17/2020 Unknown Urinalysis Ord28 U-Squamous Epi 0-5 per/HPF 05/17/2020 U nknown Urinalysis Ord28 U-Crystal None per/HPF 05/17/2020 Unkno wn Urinalysis Ord28 U-Mucus 1+ 05/17/2020 Unknown Urinalysis Ord28 U-Renal tubular epi None Unknown Urinalysis Ord28 U-RBC TNTC per/HPF 05/17/2020 Unkno wn Urinalysis Ord28 U-Transitional epi 0-5 per/HPF 05/18/19 21 Unknown Urinalysis Ord28 U-WBC 5-10 per/HPF 05/17/2020 Unkno wn Urinalysis Ord28 U-Cast None per/lpf 05/17/2020 Unkno wn Urinalysis Ord28 U-VOL VOLUME SUFFICIENT (10mL) 02/2021 Unknown Urinalysis Ord28 U-Yeast NEGATIVE 05/17/2020 Unknown Urinalysis Ord28 U-Com Culture to follow 05/17/2020 Unknown CULTURE, URINE M100 URINE CULTURE See Note 05/09/2020 Unknown Procedures Procedure Codes Date ADMIN INFLUENZA VIRUS VAC CPT-4: G0008 01/01/2021 IIV NO PRSV INCREASED AG IM CPT-4: 72127 01/01/2021 URINALYSIS NONAUTO W/O SCOPE CPT-4: 66627 05/06/2020 Vital Signs Date Vital 01/01/2021 Blood Pressure 1: 120/70 Code: 8480-6 BMI: 23.3 Code: 09418-7 Heart Rate 1: 88 bpm Height: 6' Code: 8302-2 Respiratory Rate: 18 bpm SpO2: 95% Temperature: 36.2 (C) / 97.2 (F) Weight: 172 lbs Code: 85315-7 10/02/2020 Blood Pressure 1: 118/70 Code: 8480-6 BMI: 21.2 Code: 70803-9 Heart Rate 1: 91 bpm Height: 6' Code: 8302-2 Respiratory Rate: 18 bpm SpO2: 93% Temperature: 36.7 (C) / 98.1 (F) Weight: 156 lbs Code: 43889-3 09/13/2020 Blood Pressure 1: 128/74 Code: 8480-6 BMI: 20.3 Code: 60057-8 Heart Rate 1: 68 bpm Height: 6' Code: 8302-2 SpO2: 97% Weight: 150 lbs Code: 56320-4 08/21/2020 Blood Pressure 1: 100/70 Code: 8480-6 BMI: 20.9 Code: 47050-9 Heart Rate 1: 104 bpm Height: 6' Code: 8302-2 Respiratory Rate: 16 bpm SpO2: 98% Temperature: 37.0 (C) / 98.6 (F) Weight: 153 lbs 13 oz Code: 54107-6 08/12/2020 Blood Pressure 1: 110/74 Code: 8480-6 Heart Rate 1: 73 bpm Height: Code: 8302-2 SpO2: 98% Temperature: 36.4 (C) / 97.5 (F) Weight: Code: 30253-4 07/08/2020 Blood Pressure 1: 126/68 Code: 8480-6 Heart Rate 1: 66 bpm Height: Code: 8302-2 SpO2: 98% Weight: Code: 57400-7 07/01/2020 Blood Pressure 1: 110/64 Code: 8480-6 Heart Rate 1: 65 bpm Height: Code: 8302-2 SpO2: 96% Temperature: 36.7 (C) / 98.0 (F) Weight: Code: 02108-3 06/18/2020 Blood Pressure 1: 120/64 Code: 8480-6 Heart Rate 1: 64 bpm Height: Code: 8302-2 SpO2: 96% Temperature: 36.3 (C) / 97.3 (F) Weight: Code: 57329-0 05/08/2020 Blood Pressure 1: 122/64 Code: 8480-6 Heart Rate 1: 62 bpm Height: 6' Code: 8302-2 Respiratory Rate: 18 bpm SpO2: 97% Temperature: 36 .2 (C) / 97.2 (F) Weight: Code: 03961-1 04/17/2020 Blood Pressure 1: 124/74 Code: 8480-6 BMI: 24.7 Code: 13646-1 Heart Rate 1: 64 bpm Height: 6' Code: 8302-2 Respiratory Rate: 18 bpm SpO2: 96% Temperature: 36.1 (C) / 97.0 (F) Weight: 182 lbs Code: 45383-7 Functional Status No Functional Status data Reason For Visit Reason For Visit Effective Dates Notes hypertension 01/01/2021 headache 10/02/2020 hypertension 09/13/2020 Hospital Follow Up 09/06/2020 hypertension 08/21/2020 dysuria 08/12/2020 hypertension 07/08/2020 dizziness 07/01/2020 hypertension 06/18/2020 hypertension 05/08/2020 hypertension 04/17/2020 Encounters Encounter Performer Location Codes Date ( [id number] EST. PATIENT, LEVEL IV Diagnosis: Essential (primary) hypertension[ICD10: I10] Diagnosis: Generalized anxiety disorder[ICD10: F41.9] Diagnosis: Frequency of micturition[ICD10: R35.0] Diagnosis: Benign prostatic hyperplasia with urinary frequency[ICD10: N40.1] Diagnosis: Primary insomnia[ICD10: F51.01] Deb webb MD, [facility] CPT-4: 11780 01/01/2021 ([id number]) 16204 EST. PATIENT, LEVEL IV Diagnosis: Essential (primary) hypertension[ICD10: I10] Diagnosis: Occipital headache[ICD10: R51.9] Diagnosis: Cerebrovascular accident (CVA) due to other mechanism[ICD10: I63.89] Deb Sanchez MD, [facility] CPT-4: 59062 10/02/2020 [id number]) 85705 EST. PATIENT, LEVEL IV Diagnosis: Generalized anxiety disorder[ICD10: F41.1] Diagnosis: Major depressive disorder, single episode, moderate[ICD10: F32.1] Diagnosis: Skin change[ICD10: R23.9] Sharda Sanchez MD, [facility] CPT-4: 77984 09/13/2020 [id number] EST. PATIENT, LEVEL III Diagnosis: Hospital discharge follow-up[ICD10: Z09] Diagnosis: Generalized anxiety disorder[ICD10: F41.1] Diagnosis: Major depressive disorder, single episode, moderate[ICD10: F32.1] Sharda Sanchez MD, [facility] CPT-4: 68590 09/06/2020 ([id number]) 63837 EST. PATIENT, LEVEL IV Diagnosis: Essential (primary) hypertension[ICD10: I10] Diagnosis: Cerebrovascular accident (CVA) due to other mechanism[ICD10: I63.89] Diagnosis: Mixed hyperlipidemia[ICD10: E78.2] Deb albert MD, [facility] CPT-4: 05453 08/21/2020 [id number] EST. PATIENT, LEVEL III Diagnosis: Dysuria[ICD10: R30.0] Sharda Sanchez MD, [facility] CPT- 4: 34180 08/12/2020 32069 EST. PATIENT, LEVEL III Diagnosis: Orthostatic hypotension[ICD10: I95.1] Diagnosis: Generalized weakness[ICD10: R53.1] Diagnosis: Cerebrovascular accident (CVA) due to other mechanism[ICD10: I63.89] Sharda Sanchez MD, [facility] CPT-4: 23233 07/08/2020 21743 EST. PATIENT, LEVEL IV Diagnosis: Orthostatic hypotension[ICD10: I95.1] Sharda Sanchez MD, [facility] CPT-4: 71414 07/01/2020 ([id number]) 83502 EST. PATIENT, LEVEL IV Diagnosis: Essential (primary) hypertension[ICD10: I10] Diagnosis: Cerebrovascular accident (CVA) due to other mechanism[ICD10: I63.89] Diagnosis: Generalized weakness[ICD10: R53.1] Deb albert MD, [facility] CPT-4: 42444 06/18/2020 ([id number]) 22839 EST. PATIENT, LEVEL IV Diagnosis: Dysuria[ICD10: R30.0] Diagnosis: Acute cystitis with hematuria[ICD10: N30.01] Diagnosis: Essential (primary) hypertension[ICD10: I10] Diagnosis: Cerebrovascular accident (CVA) due to other mechanism[ICD10: I63.89] Deb Sanchez MD, [facility] CPT-4: 59180 05/08/2020 ([id number]) OFFICE/OUTPATIENT VISIT NEW Diagnosis: Essential (primary) hypertension[ICD10: I10] Diagnosis: Mixed hyperlipidemia[ICD10: E78.2] Diagnosis: Generalized weakness[ICD10: R53.1] Diagnosis: Cerebrovascular accident (CVA) due to other mechanism[ICD10: I63.89] [facility] CPT-4: 07701 04/17/2020 Plan of Care Planned Activity Notes Codes Status Date Visit Plan: Hypertension - well controll ed - continue with current medications, continue with no added salt diet. Pt has been encouraged to exercise daily. The pt has been advised to call the office if there are any acute concerns about change in blood pressure readings at home. Insomnia - Pt has been advised to increase the light in the house during the day, and start dimming the lights during the evening hours. Pt has been advised to cut out caffeine after 5pm. Daytime napping worsens night time insomnia. over the next week or so - give derek the full 10mg amitriptyline and let us know if this helps the headaches and insomnia - if it does not, we can increase the dose from 10mg to 25mg at bedtime. BPH - continue with flomax. Chronic Depression and anxiety - the pt has symptoms of chronic anxiety and depression that have been fairly well controlled since the last office visit. The pt has expected periods of exacerbation with abatement of the symptoms with change in situational exposure. No change in curr ent medications. flu shot in clinic today 01/01/2021 [facility]ment[phone] [id number] ([facility] 01/01/2021 Patient Education: Patient Medication Summary Completed 01/01/2021 [phone] [id number] [facility] 12/18/2020 Visit Plan: Chronic headaches - advised as follows: you can try the amitriptyline - 10mg - take 1/2 tablet at night to see if this helps to decrease the constant headaches. Hypertension - well controlled - continue with current medications, continue with no added salt diet. Pt has been encouraged to exercise daily. The pt has been advised to call the office if there are any acute concerns about change in blood pressure readings at home. 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 Afib - rate controlled - continue with current management. 10/02/2020 App[facility]ment: [phone] [id number] (15 min) Moderate 10/02/2020 Patient Education: Patient Medication Summary Completed 10/02/2020 Visit Plan: Chronic Depression and anxie ty - the pt has symptoms of chronic anxiety and depression that have been fairly well controlled since the last office visit. The pt has expected periods of exacerbation with abatement of the symptoms with change in situational exposure. No change in current medications. Changing skin lesion to left hand - will refer to Dr. Cervantes for removal. 09/13/2020 App[facility]ment: [phone] [id number] ([facility] Complex 09/13/2020 Patient Education: Patient Medication Summary Completed 09/13/2020 Patient Education: Depression Completed 09/13/2020 Visit Plan: Hospital follow up - pt is t o keep his appointment for a follow up with Dr. Cortes - pt is to notify clinic with any changes in the current treatment plan. Anxiety - the patient has uncontrolled anxiety and will benefit from an SSRI on a daily basis to attempt control of the symptoms of anxiety (tachycardia, overwhelming sensations, stress, insomnia, etc). Pt is aware of the risks and benefits of treatment with the above medications. Depression - uncontrolled - Pt has been counseled about the diagnosis of depression, the potential causes, and risks associated with the diagnosis. The pt denies suicida l ideation, or plans. The patient has been counseled about treatment options, and understands the risks associated with treatment of depression, as well as the risks associated with NOT treating the depression. I believe the pt will benefit from medical intervention and an antidepressant has been appropriately prescribed for this patient. 09/06/2020 App[facility]ment: [phone] [id number] ([facility] Complex 09/06/2020 Patient Education: Patient Medication Summary Completed 09/06/2020 Patient Education: Depression Completed 09/06/2020 Visit Plan: HTN - too well controlled pt advised as follows: stop current rx for carvedilol start on carvedilol at 3.125mg twice daily and we will re-eval the pressures. 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 he continues to not have much drive to be active. Pt needs continued therapy - he is willing to have [facility] for therapy post stroke Afib - rate controlled - continue with current management. 08/21/2020 Appointment: Deb [phone] [id number] (15 min) Moderate 08/21/2020 Patient Education: Patient Medication Summary Completed 08/21/2020 Patient Education: Cholesterol Management Completed 08/21/2020 Visit Plan: UTI - pt with positive urina lysis - culture sent if appropriate. Antibiotic electronically prescribed to pt's pharmacy of choice. Pt to call if symptoms do not improve. 08/12/2020 Appointment: [id number] [facility] 08/12/2020 Patient Education: Patient Medication Summary Completed 08/12/2020 Care Plan: Urine Culture Pending 09/2020 Patient Education: Patient Medication Summary Completed 07/10/2020 Care Plan: Urine Culture Pending 07/2020 Patient Education: Patient Medication Summary Completed 07/09/2020 Care Plan: Urine Culture Pending 06/2020 Visit Plan: pt is on chronic antihyperte nsive medication - the medication has been adjusted down to attempt to alleviate the low blood pressures. Weakness, history cva - will order home PT 07/08/2020 Appointment: [id number] ([facility] 07/08/2020 Patient Education: Patient Medication Summary Completed 07/08/2020 Visit Plan: pt is on chronic antihyperte nsive medication - the medication has been adjusted down to attempt to alleviate the low blood pressures. 07/01/2020 Appointment: Sharda Rolle WPtel: [phone] [id number] (30 min) Complex 07/01/2020 Patient Education: Patient Medication Summary Completed 07/01/2020 Visit Plan: Hypertension - well controll ed - continue with current medications, continue with no added salt diet. Pt has been encouraged to exercise daily. The pt has been advised to call the office if there are any acute concerns about change in blood pressure readings at home. 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 he continues to not have much drive to be active. Pt needs continued therapy - he is willing to have pinamonti for therapy post stroke Afib - rate controlled - continue with current management. 06/18/2020 Appointment: [id number] ([facility] Moderate 06/18/2020 Patient Education: Patient Medication Summary Completed 06/18/2020 Visit Plan: CVA - post stroke - discusse d with the pt and his family that they need to push him harder to participate in activity and help by having him walk behind him with a wheelchair as he is using his walker. Pt instructed to improve participation with PT during therapy and outside of therapy sessions. Atrial fibrillation - they cannot afford Eliquis - we will see if he can have cardiology change him from Eliquis to Xarelto. The family reports that it cost them over 500$ for the eliquis. Consult cardiology and change from Eliquis to Xarelto to reduce costs. Continue cephalexin and if UTI doesn't improve, consult Urology See media analytics manager to assess vision changes 05/08/2020 Appointment: Deb [id number] ([facility] 05/08/2020 Patient Education: Patient Medication Summary Completed 05/08/2020 Appointment: Lab Draw 05/06/2020 Patient Education: Patient Medication Summary Completed 05/06/2020 Care Plan: Urine Culture Pending 03/2020 Patient Education: Patient Medication Summary Completed 05/02/2020 Care Plan: Urine Culture Pending Visit Plan: Stroke - his paperwork does not have specifics about his stroke, I will request records so that we can have a complete picture of his event. I suspect that there was Atrial Fibrillation or flutter and thus the reason for him being placed on Eliquis. I have advised the pt and his that they need to discuss with his acquisitions logistics analyst about getting the eliquis changed to xarelto due to decreased cost through the [employer] program at [facility]. Hypertension - well controlled - continue with current medications, continue with no added salt diet. Pt has been encouraged to exercise daily. The pt has been advised to call the office if there are any acute concerns about change in blood pressure readings at home. Hyperlipidemia - pt has been counseled about appropriate diet, exercise, and need for low fat food choices. I have discussed the need for the patient to take medications as prescribed. If the patient has negative side effects from the medication, they are to CALL the office and not abruptly discontinue the medication without discussion with a practitioner in the office. We will check labs in 3-6 months for follow up on the patient's chronic medical problem and to assure normal liver response to medications. Total Time spent with the patient and his family over 60 minutes. 04/17/2020 Appointment: Deb aSnchez [facility]el[phone] [id number] [facility] 04/17/2020 Patient Education: Patient Medication Summary Completed 04/17/2020 Patient Education: Cholesterol Management Completed 04/17/2020 Instructions Comment Date over the next week or so - give derek hall full 10mg amitriptyline and let us know if this helps the headaches and insomnia - if it does not, we can increase the dose from 10mg to 25mg at bedtime. . Hypertension - well controlled - leida nue with current medications, continue with no added salt diet. Pt has been encouraged to exercise daily. The pt has been advised to call the office if there are any acute concerns about change in blood pressure readings at home. Insomnia - Pt has been advised to increase the light in the house during the day, and start dimming the lights during the evening hours. Pt has been advised to cut out caffeine after 5pm. Daytime napping worsens night time insomnia. over the next week or so - give derek the full 10mg amitriptyline and let us know if this helps the headaches and insomnia - if it does not, we can increase the dose from 10mg to 25mg at bedtime. BPH - continue with flomax. Chronic Depression and anxiety - the pt has symptoms of chronic anxiety and depression that have been fairly well controlled since the last office visit. The pt has expected periods of exacerbation with abatement of the symptoms with change in situational exposure. No change in current medications. flu shot in clinic today 01/01/2021 you can try the amitriptyline - 10mg - t heide 1/2 tablet at night to see if this helps to decrease the constant headaches. . Chronic headaches - advised as follows : you can try the amitriptyline - 10mg - take 1/2 tablet at night to see if this helps to decrease the constant headaches. Hypertension - well controlled - continue with current medications, continue with no added salt diet. Pt has been encouraged to exercise daily. The pt has been advised to call the office if there are any acute concerns about change in blood pressure readings at home. 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 Afib - rate controlled - continue with current management. 10/02/2020 increase zoloft to 150mg restart allopurinol will refer to Dr. Cervantes to have spot on hand removed follow up in 3 months . Chronic Depression and anxiety - the p t has symptoms of chronic anxiety and depression that have been fairly well controlled since the last office visit. The pt has expected periods of exacerbation with abatement of the symptoms with change in situational exposure. No change in current medications. Changing skin lesion to left hand - will refer to Dr. Cervantes for removal. 09/13/2020 Will decrease carvedilol to once a day, monitor heart rates and blood pressures will check labs will increase sertraline to 125mg daily consider buspar or hydroxyzine for ongoing agitation continue PT with home health . Hospital follow up - pt is to keep his appointment for a follow up with Dr. Cortes - pt is to notify clinic with any changes in the current treatment plan. Anxiety - the patient has uncontrolled anxiety and will benefit from an SSRI on a daily basis to attempt control of the symptoms of anxiety (tachycardia, overwhelming sensations, stress, insomnia, etc). Pt is aware of the risks and benefits of treatment with the above medications. Depression - uncontrolled - Pt has been counseled about the diagnosis of depression, the potential causes, and risks associated with the diagnosis. The pt denies suicidal ideation, or plans. The patient has been counseled about treatment options, and understands the risks associated with treatment of depression, as well as the risks associated with NOT treating the depression. I believe the pt will benefit from medical intervention and an antidepressant has been appropriately prescribed for this patient. 09/06/2020 stop current rx for carvedilol start on carvedilol at 3.125mg twice daily and we will re-eval the pressures. . HTN - too well controlled pt advised a s follows: stop current rx for carvedilol start on carvedilol at 3.125mg twice daily and we will re-eval the pressures. 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 he continues to not have much drive to be active. Pt needs continued therapy - he is willing to have pinamonti for therapy post stroke Afib - rate controlled - continue with current management. 08/21/2020 will check labs and urine culture Pt is to call Dr. Cortes's office and make a follow up appointment. UTI - pt with positive urinalysis - culture sent if appropriate. Antibiotic electronically prescribed to pt's pharmacy of choice. Pt to call if symptoms do not improve. 08/12/2020 hold carvediolol if blood pressure is 12 0 or less for the top number keep track of heart rates will have pal hale contact you edilia for home PT . pt is on chronic antihypertensive medi cation - the medication has been adjusted down to attempt to alleviate the low blood pressures. Weakness, history cva - will order home PT 07/08/2020 carvedilol - cut in half and do a half p ill twice a day check pressures once or twice a day and bring a log to follow up in 1 week . pt is on chronic antihypertensive medi cation - the medication has been adjusted down to attempt to alleviate the low blood pressures. 07/01/2020 . Hypertension - well controlled - leida nue with current medications, continue with no added salt diet. Pt has been encouraged to exercise daily. The pt has been advised to call the office if there are any acute concerns about change in blood pressure readings at home. 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 he continues to not have much drive to be active. Pt needs continued therapy - he is willing to have pinamonti for therapy post stroke Afib - rate controlled - continue with current management. 06/18/2020 . CVA - post stroke - discussed with the pt and his family that they need to push him harder to participate in activity and help by having him walk behind him with a wheelchair as he is using his walker. Pt instructed to improve participation with PT during therapy and outside of therapy sessions. Atrial fibrillation - they cannot afford Eliquis - we will see if he can have cardiology change him from Eliquis to Xarelto. The family reports that it cost them over 500$ for the eliquis. Consult cardiology and change from Eliquis to Xarelto to reduce costs. Continue cephalexin and if UTI doesn't improve, consult Urology See media analytics manager to assess vision changes 05/08/2020 . Stroke - his paperwork does not have s pecifics about his stroke, I will request records so that we can have a complete picture of his event. I suspect that there was Atrial Fibrillation or flutter and thus the reason for him being placed on Eliquis. I have advised the pt and his that they need to discuss with his acquisitions logistics analyst about getting the eliquis changed to xarelto due to decreased cost through the [employer] program at [facility]. Hypertension - well controlled - continue with current medications, continue with no added salt diet. Pt has been encouraged to exercise daily. The pt has been advised to call the office if there are any acute concerns about change in blood pressure readings at home. Hyperlipidemia - pt has been counseled about appropriate diet, exercise, and need for low fat food choices. I have discussed the need for the patient to take medications as prescribed. If the patient has negative side effects from the medication, they are to CALL the office and not abruptly discontinue the medication without discussion with a practitioner in the office. We will check labs in 3-6 months for follow up on the patient's chronic medical problem and to assure normal liver response to medications. Total Time spent with the patient and his family over 60 minutes. 04/17/2020 Medical Equipment No Medical Equipment data Health Concerns Section Health Concerns data not found Goals Section Goals data not found Interventions Section Interventions data not found Health Status Evaluations/Outcomes Section Health Status Evaluations/Outcomes data not found Advance Directives No Advance Directive data
--- OUTSIDE RECORDS SUMMARY | 2021-03-14 09:21 | XMS REPORT | CCD ---
Author Author Derek Sanchez Organization Deb Sanchez MD, [facility] Address [address] [place] [address] Phone Care Team Providers Care Space Scheduler Name Role Phone Deb Sanchez PP Unavailable CCM Unavailable Summary Purpose Interface Exchange Insurance Providers Payer name Policy type / Coverage type Covered libertarian ID Effective Begin Date Effective End Date WPS Medicare Part B Medicare Part B [id number] Unknown Unkno wn Aetna Medicare Part B [id number] Unknown Unknown Family history Mother Diagnosis Age At Onset Heart Attack Unknown Father Diagnosis Age At Onset Colon cancer Unknown Hypertension Unknown Social History Social History Element Codes Description Effective Dates Marital status Unknown rebeca 04/17/2020 Number of children Unknown 4 04/17/2020 Employment Unknown Retired 04/17/[address]: 2105401 Quit less than 10 years ago 0 [...] Fill Instructions carvedilol 3.125 mg tablet RxNorm: 834390 Take 1 Tablet(s) Oral two times a day 01/24/2021 02/22/2021 Active amitriptyline 10 mg tablet RxNorm: 508457 Take 1 Tablet(s) Oral every evening 10/02/2020 01/29/2021 Active sertraline 50 mg tablet RxNorm: 910966 Take 1 Tablet(s) Oral every day to take with 100mg to equal 150mg daily 09/13/2020 09/07/2021 Active Zoloft 25 mg tablet RxNorm: 087300 Take 1 Tablet(s) Ora l every day in addition to the 100mg daily to equal 125mg daily 09/06/2020 10/02/2020 Inactive tamsulosin 0.4 mg capsule RxNorm: 003689 1 Capsule(s) Oral every da y 08/26/2020 No Stop Date Active carvedilol 3.125 mg tablet RxNorm: 097326 Take 1 Tablet(s) Oral two times a day 08/21/2020 12/18/2020 Inactive doxycycline hyclate 100 mg capsule RxNorm: 7882776 1 Cap purvi(s) Oral two times a day 08/12/2020 08/22/2020 Inactive Eliquis 5 mg tablet RxNorm: 4155956 1 Tablet(s) Oral two times a da y 05/17/2020 05/12/2021 Active cephalexin 500 mg capsule RxNorm: 663437 1 Capsule(s) Oral thre e times a day 05/17/2020 05/24/2020 Inactive cephalexin 500 mg capsule RxNorm: 828673 1 Capsule(s) Oral thre e times a day 05/17/2020 05/16/2020 Inactive sertraline 100 mg tablet RxNorm: 638507 1 Tablet(s) Oral every night at bedtime 05/16/2020 05/11/2021 Active Plavix 75 mg tablet RxNorm: 913056 1 Tablet(s) Oral every day 05/1605/11/2021 Active potassium chloride ER 20 mEq tablet,extended release(p art/cryst) RxNorm: 1364375 1 Tablet(s) Oral every day 05/16/2020 05/11/2021 Active m ay fill the 20meq capsule you have been filling atorvastatin 80 mg tablet RxNorm: 449134 1 Tablet(s) Or al every night at bedtime 05/16/2020 05/11/2021 Active carvedilol 12.5 mg tablet RxNorm: 359321 1 Tablet(s) Oral two t imes a day 05/16/2020 08/20/2020 Inactive allopurinol 100 mg tablet RxNorm: 578889 1 Tablet(s) Oral every day 05/16/2020 09/12/2020 Inactive cephalexin 500 mg capsule RxNorm: 160776 1 Capsule(s) O ral three times a day probiotic tid x 10 days 05/06/2020 05/15/2020 Inactive cephalexin 500 mg capsule RxNorm: 905617 1 Capsule(s) O ral three times a day probiotic tid x 10 days 05/06/2020 05/05/2020 Inactive Eliquis 5 mg tablet RxNorm: 7794229 1 Tablet(s) Oral two times a da y 04/21/2020 05/16/2020 Inactive carvedilol 12.5 mg tablet RxNorm: 203754 1 Tablet(s) Oral two t imes a day 04/21/2020 05/15/2020 Inactive potassium chloride ER 10 mEq tablet,extended release RxNorm: 287860 1 Tablet(s) Oral every day 04/21/2020 05/15/2020 Inactive allopurinol 100 mg tablet RxNorm: 825973 1 Tablet(s) Oral every day 04/21/2020 05/15/2020 Inactive sertraline 100 mg tablet RxNorm: 001335 1 Tablet(s) Oral every night at bedtime 04/21/2020 05/15/2020 Inactive atorvastatin 80 mg tablet RxNorm: 130577 1 Tablet(s) Or al every night at bedtime 04/21/2020 05/15/2020 Inactive Plavix 75 mg tablet RxNorm: 117132 1 Tablet(s) Oral every day 04/2105/15/2020 Inactive finasteride oral RxNorm: 23688 oral 08/26/2020 Active Medication Administered No Medication Administered data Immunizations Vaccine Codes Date Status Influenza CVX: 135 01/01/2021 Complete Results Observation Observation Code Item [...] 09/07/19 21 Unknown Cbc With Differential Ord2 [place]% 10.3 % 09/07/19 21 Unknown Cbc With [...] K/ul 021 Unknown Cbc With Differential Ord2 [place] ABS# 0.7 K/ul 09/07/19 21 Unknown Cbc With Differential Ord2 Eos ABS# 0.2 K/ul 09/07/19 21 Unknown Cbc With Differential Ord2 Baso ABS# 0.0 K/ul 09/07/19 21 Unknown Comp Metabolic Ipt780 NA 140 mEq/L 09/06/2020 Unkn own Comp Metabolic Uzx111 K 4.3 mEq/L 09/06/2020 Unkn own Comp Metabolic Hmq911 CL 104 mEq/L 09/06/2020 Unkn own Comp Metabolic Vxe753 CO2 29.0 mEq/L 09/06/2020 Unk nown Comp Metabolic Hiy547 ANION GAP 11 09/06/2020 Unkn own Comp Metabolic Uls799 GLUCOSE 109 mg/dL 09/06/2020 Unkn own Comp Metabolic Qsm131 Creat 0.6 mg/dL 09/06/2020 Unkn own Comp Metabolic Mai043 eGFR 153 ml/min/1.73m2 021 Unknown Comp Metabolic Bag640 BUN 9 mg/dL 09/06/2020 Unkn own Comp Metabolic Xqp829 B/C Ratio 16.1 Ratio 09/06/2020 Unk nown Comp Metabolic Jez717 CALCIUM 9.1 mg/dL 09/06/2020 Unkn own Comp Metabolic Ibq580 ALK PHOS 128 U/L 09/06/2020 Unkn own Comp Metabolic Biz547 AST(SGOT) 20 U/L 09/06/2020 Unkn own Comp Metabolic Pmi651 ALT(SGPT) 19 U/L 09/06/2020 Unkn own Comp Metabolic Tnw151 BILI T 0.4 mg/dL 09/06/2020 Unkn own Comp Metabolic Gbk519 ALBUMIN 3.5 g/dL 09/06/2020 Unkn own Comp Metabolic Zuc194 TPRO 6.3 g/dL 09/06/2020 Unkn own Comp Metabolic Rbz206 GLOB 2.8 g/dL 09/06/2020 Unkn own Comp Metabolic Opj889 A/G Ratio 1.3 Ratio 09/06/2020 Unkn own Comp Metabolic Hvw133 Osmo 279 mOsmo 09/06/2020 Unkn own CULTURE, URINE M100 URINE CULTURE See Note 08/15/2020 Unknown Comp Metabolic Gab275 NA 143 mEq/L 08/12/2020 Unkn own Comp Metabolic Vcb549 K 4.0 mEq/L 08/12/2020 Unkn own Comp Metabolic Vif409 CL 108 mEq/L 08/12/2020 Unkn own Comp Metabolic Djv106 CO2 27.0 mEq/L 08/12/2020 Unk nown Comp Metabolic Gwv790 ANION GAP 12 08/12/2020 Unkn own Comp Metabolic Uyi612 GLUCOSE 109 mg/dL 08/12/2020 Unkn own Comp Metabolic Iyv331 Creat 0.7 mg/dL 08/12/2020 Unkn own Comp Metabolic Jrb732 eGFR 129 ml/min/1.73m2 021 Unknown Comp Metabolic Sqy964 BUN 9 mg/dL 08/12/2020 Unkn own Comp Metabolic Tzc231 B/C Ratio 13.8 Ratio 08/12/2020 Unk nown Comp Metabolic Yae236 CALCIUM 9.1 mg/dL 08/12/2020 Unkn own Comp Metabolic Aag951 ALK PHOS 120 U/L 08/12/2020 Unkn own Comp Metabolic Ktw202 AST(SGOT) 21 U/L 08/12/2020 Unkn own Comp Metabolic Oef880 ALT(SGPT) 19 U/L 08/12/2020 Unkn own Comp Metabolic Cby897 BILI T 0.4 mg/dL 08/12/2020 Unkn own Comp Metabolic Mvi404 ALBUMIN 3.9 g/dL 08/12/2020 Unkn own Comp Metabolic Bmu202 TPRO 6.3 g/dL 08/12/2020 Unkn own Comp Metabolic Mlp040 GLOB 2.4 g/dL 08/12/2020 Unkn own Comp Metabolic Rgw739 A/G Ratio 1.6 Ratio 08/12/2020 Unkn own Comp Metabolic Goh053 Osmo 284 mOsmo 08/12/2020 Unkn own Cbc [...] 08/13/19 21 Unknown Cbc With Differential Ord2 [place]% 12.4 % 08/13/19 21 Unknown Cbc With [...] K/ul 021 Unknown Cbc With Differential Ord2 [place] ABS# 1.0 K/ul 08/13/19 21 Unknown Cbc [...] VOLUME SUFFICIENT (10mL) 02/2021 Unknown Urinalysis Ord28 U-Com Culture to follow 05/17/2020 Unknown Urinalysis Ord28 U-Yeast NEGATIVE 05/17/2020 Unknown CULTURE, URINE M100 URINE CULTURE See Note 05/09/2020 Unknown Procedures Procedure Codes Date ADMIN INFLUENZA VIRUS VAC CPT-4: G0008 01/01/2021 IIV NO PRSV INCREASED AG IM CPT-4: 24371 01/01/2021 URINALYSIS NONAUTO W/O SCOPE CPT-4: 10845 05/06/2020 Vital Signs Date Vital 01/01/2021 Blood Pressure 1: 120/70 Code: 8480-6 BMI: 23.3 Code: 51777-3 Heart Rate 1: 88 bpm Height: 6' Code: 8302-2 Respiratory Rate: 18 bpm SpO2: 95% Temperature: 36.2 (C) / 97.2 (F) Weight: 172 lbs Code: 41145-0 10/02/2020 Blood Pressure 1: 118/70 Code: 8480-6 BMI: 21.2 Code: 20758-0 Heart Rate 1: 91 bpm Height: 6' Code: 8302-2 Respiratory Rate: 18 bpm SpO2: 93% Temperature: 36.7 (C) / 98.1 (F) Weight: 156 lbs Code: 31460-9 09/13/2020 Blood Pressure 1: 128/74 Code: 8480-6 BMI: 20.3 Code: 20726-5 Heart Rate 1: 68 bpm Height: 6' Code: 8302-2 SpO2: 97% Weight: 150 lbs Code: 65026-3 08/21/2020 Blood Pressure 1: 100/70 Code: 8480-6 BMI: 20.9 Code: 37475-9 Heart Rate 1: 104 bpm Height: 6' Code: 8302-2 Respiratory Rate: 16 bpm SpO2: 98% Temperature: 37.0 (C) / 98.6 (F) Weight: 153 lbs 13 oz Code: 57545-4 08/12/2020 Blood Pressure 1: 110/74 Code: 8480-6 Heart Rate 1: 73 bpm Height: Code: 8302-2 SpO2: 98% Temperature: 36.4 (C) / 97.5 (F) Weight: Code: 24160-0 07/08/2020 Blood Pressure 1: 126/68 Code: 8480-6 Heart Rate 1: 66 bpm Height: Code: 8302-2 SpO2: 98% Weight: Code: 37325-1 07/01/2020 Blood Pressure 1: 110/64 Code: 8480-6 Heart Rate 1: 65 bpm Height: Code: 8302-2 SpO2: 96% Temperature: 36.7 (C) / 98.0 (F) Weight: Code: 95784-9 06/18/2020 Blood Pressure 1: 120/64 Code: 8480-6 Heart Rate 1: 64 bpm Height: Code: 8302-2 SpO2: 96% Temperature: 36.3 (C) / 97.3 (F) Weight: Code: 00340-8 05/08/2020 Blood Pressure 1: 122/64 Code: 8480-6 Heart Rate 1: 62 bpm Height: 6' Code: 8302-2 Respiratory Rate: 18 bpm SpO2: 97% Temperature: 36 .2 (C) / 97.2 (F) Weight: Code: 81624-3 04/17/2020 Blood Pressure 1: 124/74 Code: 8480-6 BMI: 24.7 Code: 33593-1 Heart Rate 1: 64 bpm Height: 6' Code: 8302-2 Respiratory Rate: 18 bpm SpO2: 96% Temperature: 36.1 (C) / 97.0 (F) Weight: 182 lbs Code: 40030-3 Functional Status No Functional Status data Reason For Visit Reason For Visit Effective Dates Notes hypertension 01/01/2021 headache 10/02/2020 hypertension 09/13/2020 Hospital Follow Up 09/06/2020 hypertension 08/21/2020 dysuria 08/12/2020 hypertension 07/08/2020 dizziness 07/01/2020 hypertension 06/18/2020 hypertension 05/08/2020 hypertension 04/17/2020 Encounters Encounter Performer Location Codes Date ( EST. PATIENT, LEVEL IV Diagnosis: Essential (primary) hypertension[ICD10: I10] Diagnosis: Generalized anxiety disorder[ICD10: F41.9] Diagnosis: Frequency of micturition[ICD10: R35.0] Diagnosis: Benign prostatic hyperplasia with urinary frequency[ICD10: N40.1] Diagnosis: Primary insomnia[ICD10: F51.01] Deb webb MD, [facility] CPT-4: 49885 01/01/2021 ([id number]) [id number] EST. PATIENT, LEVEL IV Diagnosis: Essential (primary) hypertension[ICD10: I10] Diagnosis: Occipital headache[ICD10: R51.9] Diagnosis: Cerebrovascular accident (CVA) due to other mechanism[ICD10: I63.89] Deb Sanchez MD, [facility] CPT-4: 40918 10/02/2020 ([id number]) [id number] EST. PATIENT, LEVEL IV Diagnosis: Generalized anxiety disorder[ICD10: F41.1] Diagnosis: Major depressive disorder, single episode, moderate[ICD10: F32.1] Diagnosis: Skin change[ICD10: R23.9] [facility] CPT-4: 30283 09/13/2020 ([id number]) [id number] EST. PATIENT, LEVEL III Diagnosis: Hospital discharge follow-up[ICD10: Z09] Diagnosis: Generalized anxiety disorder[ICD10: F41.1] Diagnosis: Major depressive disorder, single episode, moderate[ICD10: F32.1] Sharda Sanchez MD, [facility] CPT-4: 64395 09/06/2020 ([id number]) 03879 EST. PATIENT, LEVEL IV Diagnosis: Essential (primary) hypertension[ICD10: I10] Diagnosis: Cerebrovascular accident (CVA) due to other mechanism[ICD10: I63.89] Diagnosis: Mixed hyperlipidemia[ICD10: E78.2] Deb albert MD, [facility] CPT-4: 00108 08/21/2020 [id number] EST. PATIENT, LEVEL III Diagnosis: Dysuria[ICD10: R30.0] Sharda Sanchez MD, [facility] CPT- 4: 96615 08/12/2020 [id number] EST. PATIENT, LEVEL III Diagnosis: Orthostatic hypotension[ICD10: I95.1] Diagnosis: Generalized weakness[ICD10: R53.1] Diagnosis: Cerebrovascular accident (CVA) due to other mechanism[ICD10: I63.89] Sharda Sanchez MD, [facility] CPT-4: 90371 07/08/2020 05402 EST. PATIENT, LEVEL IV Diagnosis: Orthostatic hypotension[ICD10: I95.1] Sharda Sanchez MD, [facility] CPT-4: 80139 07/01/2020 ([id number]) 90417 EST. PATIENT, LEVEL IV Diagnosis: Essential (primary) hypertension[ICD10: I10] Diagnosis: Cerebrovascular accident (CVA) due to other mechanism[ICD10: I63.89] Diagnosis: Generalized weakness[ICD10: R53.1] Deb albert MD, [facility] CPT-4: 34731 06/18/2020 ([id number]) 89445 EST. PATIENT, LEVEL IV Diagnosis: Dysuria[ICD10: R30.0] Diagnosis: Acute cystitis with hematuria[ICD10: N30.01] Diagnosis: Essential (primary) hypertension[ICD10: I10] Diagnosis: Cerebrovascular accident (CVA) due to other mechanism[ICD10: I63.89] Deb Sanchez MD, [facility] CPT-4: 04268 05/08/2020 ([id number]) OFFICE/OUTPATIENT VISIT NEW Diagnosis: Essential (primary) hypertension[ICD10: I10] Diagnosis: Mixed hyperlipidemia[ICD10: E78.2] Diagnosis: Generalized weakness[ICD10: R53.1] Diagnosis: Cerebrovascular accident (CVA) due to other mechanism[ICD10: I63.89] [facility] CPT-4: 24642 04/17/2020 Plan of Care Planned Activity Notes [...] today 01/01/2021 [phone] ([facility] 01/01/2021 Patient Education: Patient Medication Summary Completed 01/01/2021 [phone] [place] ([facility] [place] 12/18/2020 Visit Plan: Chronic [...] management. 10/02/2020 Appointment: Deb Sanchez WPtel: [phone] [facility] (15 min) Moderate 10/02/2020 Patient Education: Patient [...] for removal. 09/13/2020 Appointment: Sharda Rolle WPtel: [phone] [facility] (30 min) Complex 09/13/2020 Patient Education: Patient [...] this patient. 09/06/2020 Appointment: Sharda Rolle WPtel: [phone] [facility] (30 min) Complex 09/06/2020 Patient Education: Patient [...] current management. 08/21/2020 [phone] ([facility] min) Moderate 08/21/2020 Patient Education: Patient Medication Summary Completed 08/21/2020 Patient Education: Cholesterol Management Completed 08/21/2020 Visit Plan: UTI - pt with positive urina lysis - culture sent if appropriate. Antibiotic electronically prescribed to pt's pharmacy of choice. Pt to call if symptoms do not improve. 08/12/2020 Appointment: Sharda Rolle [facility]el[facility] [place] (30 min) Complex 08/12/2020 Patient Education: Patient [...] home PT 07/08/2020 Appointment: Sharda Rolle [facility]el: [facility] [place] [place] (30 min) Complex 07/08/2020 Patient Education: Patient Medication Summary Completed 07/08/2020 Visit Plan: pt is on chronic antihyperte nsive medication - the medication has been adjusted down to attempt to alleviate the low blood pressures. 07/01/2020 Appointment: [phone] [place] ([place] min) Complex 07/01/2020 Patient Education: Patient [...] current management. 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 Hypertension - well controlled - continue with [...] family over 60 minutes. 04/17/2020 Appointment: Deb Sanchez WPtel: [address] [place] [address] [place] New Patient 04/17/2020 Patient Education: Patient Medication Summary Completed 04/17/2020 Patient Education: Cholesterol Management Completed 04/17/2020 Instructions Comment over the next week or so - [...] current medications. flu shot in clinic today you can try the amitriptyline - 10mg [...] rate controlled - continue with current management. increase zoloft to 150mg restart allopurinol will [...] will refer to Dr. Cervantes for removal. Will decrease carvedilol to once a day, [...] has been appropriately prescribed for this patient. stop current rx for carvedilol start on [...] rate controlled - continue with current management. will check labs and urine culture Pt is to call Dr. Cortes's office and make a follow up appointment. UTI - pt with positive urinalysis - culture sent if appropriate. Antibiotic electronically prescribed to pt's pharmacy of choice. Pt to call if symptoms do not improve. hold carvediolol if blood pressure is 12 0 or less for the top number keep track of heart rates will have pal hale contact tyson yeboah for home PT . pt is on chronic antihypertensive medi cation - the medication has been adjusted down to attempt to alleviate the low blood pressures. Weakness, history cva - will order home PT carvedilol - cut in half and do a half p ill twice a day check pressures once or twice a day and bring a log to follow up in 1 week . pt is on chronic antihypertensive medi cation - the medication has been adjusted down to attempt to alleviate the low blood pressures. . Hypertension - well controlled - leida [...] rate controlled - continue with current management. . CVA - post stroke - discussed [...] if UTI doesn't improve, consult Urology See nuclear medicine pet ct technologist to assess vision changes . Stroke - his paperwork does not have s pecifics about his stroke, I will request records so that we can have a complete picture of his event. I suspect that there was Atrial Fibrillation or flutter and thus the reason for him being placed on Eliquis. 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 Hypertension - well controlled - continue with [...] patient and his family over 60 minutes. Medical Equipment No Medical Equipment data Health Concerns Section Health Concerns data not found Goals Section Goals data not found Interventions Section Interventions data not found Health Status Evaluations/Outcomes Section Health Status Evaluations/Outcomes data not found Advance Directives No Advance Directive data
--- OUTSIDE RECORDS SUMMARY | 2021-03-14 09:21 | XMS REPORT | CCD ---
Author Author Derek Sanchez Organization Deb Sanchez MD, [facility] Address [address] [place] [address] Phone Care Team Providers Care Focus Puller Name Role Phone Deb Sanchez PP Unavailable CCM Unavailable Summary Purpose Interface Exchange Insurance Providers Payer name Policy type / Coverage type Covered democrat ID Effective Begin Date Effective End Date WPS Medicare Part B Medicare Part B [id number] Unknown Unkno wn Aetna Medicare Part B [id number] Unknown Unknown Family history Mother Diagnosis Age At Onset Heart Attack Unknown Father Diagnosis Age At Onset Colon cancer Unknown Hypertension Unknown Social History Social History Element Codes Description Effective Dates Marital status Unknown rebeca 04/17/2020 Number of children Unknown 4 04/17/2020 Employment Unknown Retired 04/17/[address]: 1111134 Quit less than 10 years ago 0 [...] Start Date Stop Date Status Fill Instructions amitriptyline 10 mg tablet RxNorm: 836800 Take 1 Tablet(s) Oral every evening 03/11/2021 06/03/2022 Active USE [facility]; SHEILA 015 [id number] [facility] [id number] ID [id number] $7.59 FOR 90 TABS amitriptyline 10 mg tablet RxNorm: 388736 Take 1 Tablet(s) Oral every evening 03/10/2021 03/10/2021 Inactive carvedilol 3.125 mg tablet RxNorm: 602826 Take 1 Tablet(s) Oral two times a day 02/20/2021 07/19/2021 Active carvedilol 3.125 mg tablet RxNorm: 874926 Take 1 Tablet(s) Oral two times a day 01/24/2021 01/24/2021 Inactive amitriptyline 10 mg tablet RxNorm: 865126 Take 1 Tablet(s) Oral every evening 10/02/2020 01/29/2021 Inactive sertraline 50 mg tablet RxNorm: 754604 Take 1 Tablet(s) Oral every day to take with 100mg to equal 150mg daily 09/13/2020 09/07/2021 Active Zoloft 25 mg tablet RxNorm: 363280 Take 1 Tablet(s) Ora l every day in addition to the 100mg daily to equal 125mg daily 09/06/2020 10/02/2020 Inactive tamsulosin 0.4 mg capsule RxNorm: 217515 1 Capsule(s) Oral every da y 08/26/2020 No Stop Date Active carvedilol 3.125 mg tablet RxNorm: 658168 Take 1 Tablet(s) Oral two times a day 08/21/2020 12/18/2020 Inactive doxycycline hyclate 100 mg capsule RxNorm: 1792108 1 Cap purvi(s) Oral two times a day 08/12/2020 08/22/2020 Inactive Eliquis 5 mg tablet RxNorm: 5189850 1 Tablet(s) Oral two times a da y 05/17/2020 05/12/2021 Active cephalexin 500 mg capsule RxNorm: 497648 1 Capsule(s) Oral thre e times a day 05/17/2020 05/24/2020 Inactive cephalexin 500 mg capsule RxNorm: 036670 1 Capsule(s) Oral thre e times a day 05/17/2020 05/16/2020 Inactive sertraline 100 mg tablet RxNorm: 048791 1 Tablet(s) Oral every night at bedtime 05/16/2020 05/11/2021 Active Plavix 75 mg tablet RxNorm: 757391 1 Tablet(s) Oral every day 05/1605/11/2021 Active potassium chloride ER 20 mEq tablet,extended release(p art/cryst) RxNorm: 3833803 1 Tablet(s) Oral every day 05/16/2020 05/11/2021 Active m ay fill the 20meq capsule you have been filling atorvastatin 80 mg tablet RxNorm: 206833 1 Tablet(s) Or al every night at bedtime 05/16/2020 05/11/2021 Active carvedilol 12.5 mg tablet RxNorm: 361184 1 Tablet(s) Oral two t imes a day 05/16/2020 08/20/2020 Inactive allopurinol 100 mg tablet RxNorm: 385105 1 Tablet(s) Oral every day 05/16/2020 09/12/2020 Inactive cephalexin 500 mg capsule RxNorm: 979526 1 Capsule(s) O ral three times a day probiotic tid x 10 days 05/06/2020 05/15/2020 Inactive cephalexin 500 mg capsule RxNorm: 367943 1 Capsule(s) O ral three times a day probiotic tid x 10 days 05/06/2020 05/05/2020 Inactive Eliquis 5 mg tablet RxNorm: 7763157 1 Tablet(s) Oral two times a da y 04/21/2020 05/16/2020 Inactive carvedilol 12.5 mg tablet RxNorm: 029366 1 Tablet(s) Oral two t imes a day 04/21/2020 05/15/2020 Inactive potassium chloride ER 10 mEq tablet,extended release RxNorm: 245011 1 Tablet(s) Oral every day 04/21/2020 05/15/2020 Inactive allopurinol 100 mg tablet RxNorm: 188523 1 Tablet(s) Oral every day 04/21/2020 05/15/2020 Inactive sertraline 100 mg tablet RxNorm: 151411 1 Tablet(s) Oral every night at bedtime 04/21/2020 05/15/2020 Inactive atorvastatin 80 mg tablet RxNorm: 629991 1 Tablet(s) Or al every night at bedtime 04/21/2020 05/15/2020 Inactive Plavix 75 mg tablet RxNorm: 240755 1 Tablet(s) Oral every day 04/2105/15/2020 Inactive finasteride oral RxNorm: 64273 oral 08/26/2020 Active Medication Administered No Medication [...] 09/07/19 21 Unknown Cbc With Differential Ord2 Rowan% 10.3 % 09/07/19 21 Unknown Cbc With [...] K/ul 021 Unknown Cbc With Differential Ord2 Rowan ABS# 0.7 K/ul 09/07/19 21 Unknown Cbc With Differential Ord2 Eos ABS# 0.2 K/ul 09/07/19 21 Unknown Cbc With Differential Ord2 Baso ABS# 0.0 K/ul 09/07/19 21 Unknown Comp Metabolic Qeu916 NA 140 mEq/L 09/06/2020 Unkn own Comp Metabolic Iwr716 K 4.3 mEq/L 09/06/2020 Unkn own Comp Metabolic Ggt557 CL 104 mEq/L 09/06/2020 Unkn own Comp Metabolic Hix296 CO2 29.0 mEq/L 09/06/2020 Unk nown Comp Metabolic Iqu185 ANION GAP 11 09/06/2020 Unkn own Comp Metabolic Uxs734 GLUCOSE 109 mg/dL 09/06/2020 Unkn own Comp Metabolic Cye185 Creat 0.6 mg/dL 09/06/2020 Unkn own Comp Metabolic Utz661 eGFR 153 ml/min/1.73m2 021 Unknown Comp Metabolic Vbx545 BUN 9 mg/dL 09/06/2020 Unkn own Comp Metabolic Hqv597 B/C Ratio 16.1 Ratio 09/06/2020 Unk nown Comp Metabolic Ysg548 CALCIUM 9.1 mg/dL 09/06/2020 Unkn own Comp Metabolic Nnl125 ALK PHOS 128 U/L 09/06/2020 Unkn own Comp Metabolic Ijz511 AST(SGOT) 20 U/L 09/06/2020 Unkn own Comp Metabolic Bbs088 ALT(SGPT) 19 U/L 09/06/2020 Unkn own Comp Metabolic Ypq162 BILI T 0.4 mg/dL 09/06/2020 Unkn own Comp Metabolic Xoh890 ALBUMIN 3.5 g/dL 09/06/2020 Unkn own Comp Metabolic Alf546 TPRO 6.3 g/dL 09/06/2020 Unkn own Comp Metabolic Ies839 GLOB 2.8 g/dL 09/06/2020 Unkn own Comp Metabolic Gvb711 A/G Ratio 1.3 Ratio 09/06/2020 Unkn own Comp Metabolic Yrk271 Osmo 279 mOsmo 09/06/2020 Unkn own CULTURE, URINE M100 URINE CULTURE See Note 08/15/2020 Unknown Comp Metabolic Mjl810 NA 143 mEq/L 08/12/2020 Unkn own Comp Metabolic Dst893 K 4.0 mEq/L 08/12/2020 Unkn own Comp Metabolic Vvp889 CL 108 mEq/L 08/12/2020 Unkn own Comp Metabolic Gtc648 CO2 27.0 mEq/L 08/12/2020 Unk nown Comp Metabolic Pdc627 ANION GAP 12 08/12/2020 Unkn own Comp Metabolic Ldh820 GLUCOSE 109 mg/dL 08/12/2020 Unkn own Comp Metabolic Rgx426 Creat 0.7 mg/dL 08/12/2020 Unkn own Comp Metabolic Qjl691 eGFR 129 ml/min/1.73m2 08/12/ 021 Unknown Comp Metabolic Jvq020 BUN 9 mg/dL 08/12/2020 Unkn own Comp Metabolic Lvt325 B/C Ratio 13.8 Ratio 08/12/2020 Unk nown Comp Metabolic Hfq249 CALCIUM 9.1 mg/dL 08/12/2020 Unkn own Comp Metabolic Tfw916 ALK PHOS 120 U/L 08/12/2020 Unkn own Comp Metabolic Tfg269 AST(SGOT) 21 U/L 08/12/2020 Unkn own Comp Metabolic Zyq505 ALT(SGPT) 19 U/L 08/12/2020 Unkn own Comp Metabolic Owy206 BILI T 0.4 mg/dL 08/12/2020 Unkn own Comp Metabolic Kqr376 ALBUMIN 3.9 g/dL 08/12/2020 Unkn own Comp Metabolic Eds191 TPRO 6.3 g/dL 08/12/2020 Unkn own Comp Metabolic Nyr934 GLOB 2.4 g/dL 08/12/2020 Unkn own Comp Metabolic Rlq887 A/G Ratio 1.6 Ratio 08/12/2020 Unkn own Comp Metabolic Mkn606 Osmo 284 mOsmo 08/12/2020 Unkn own Cbc [...] 08/13/19 21 Unknown Cbc With Differential Ord2 Rowan% 12.4 % 08/13/19 21 Unknown Cbc With [...] K/ul 021 Unknown Cbc With Differential Ord2 Rowan ABS# 1.0 K/ul 08/13/19 21 Unknown Cbc [...] IIV NO PRSV INCREASED AG IM CPT-4: 25485 01/01/2021 URINALYSIS NONAUTO W/O SCOPE CPT-4: 10971 05/06/2020 Vital Signs Date Vital 01/01/2021 Blood Pressure 1: 120/70 Code: 8480-6 BMI: 23.3 Code: 76257-5 Heart Rate 1: 88 bpm Height: 6' Code: 8302-2 Respiratory Rate: 18 bpm SpO2: 95% Temperature: 36.2 (C) / 97.2 (F) Weight: 172 lbs Code: 36164-0 10/02/2020 Blood Pressure 1: 118/70 Code: 8480-6 BMI: 21.2 Code: 05466-4 Heart Rate 1: 91 bpm Height: 6' Code: 8302-2 Respiratory Rate: 18 bpm SpO2: 93% Temperature: 36.7 (C) / 98.1 (F) Weight: 156 lbs Code: 29835-8 09/13/2020 Blood Pressure 1: 128/74 Code: 8480-6 BMI: 20.3 Code: 17808-9 Heart Rate 1: 68 bpm Height: 6' Code: 8302-2 SpO2: 97% Weight: 150 lbs Code: 71540-5 08/21/2020 Blood Pressure 1: 100/70 Code: 8480-6 BMI: 20.9 Code: 07411-6 Heart Rate 1: 104 bpm Height: 6' Code: 8302-2 Respiratory Rate: 16 bpm SpO2: 98% Temperature: 37.0 (C) / 98.6 (F) Weight: 153 lbs 13 oz Code: 44797-0 08/12/2020 Blood Pressure 1: 110/74 Code: 8480-6 Heart Rate 1: 73 bpm Height: Code: 8302-2 SpO2: 98% Temperature: 36.4 (C) / 97.5 (F) Weight: Code: 01853-7 07/08/2020 Blood Pressure 1: 126/68 Code: 8480-6 Heart Rate 1: 66 bpm Height: Code: 8302-2 SpO2: 98% Weight: Code: 41020-9 07/01/2020 Blood Pressure 1: 110/64 Code: 8480-6 Heart Rate 1: 65 bpm Height: Code: 8302-2 SpO2: 96% Temperature: 36.7 (C) / 98.0 (F) Weight: Code: 13502-5 06/18/2020 Blood Pressure 1: 120/64 Code: 8480-6 Heart Rate 1: 64 bpm Height: Code: 8302-2 SpO2: 96% Temperature: 36.3 (C) / 97.3 (F) Weight: Code: 62518-1 05/08/2020 Blood Pressure 1: 122/64 Code: 8480-6 Heart Rate 1: 62 bpm Height: 6' Code: 8302-2 Respiratory Rate: 18 bpm SpO2: 97% Temperature: 36 .2 (C) / 97.2 (F) Weight: Code: 69093-2 04/17/2020 Blood Pressure 1: 124/74 Code: 8480-6 BMI: 24.7 Code: 82249-4 Heart Rate 1: 64 bpm Height: 6' Code: 8302-2 Respiratory Rate: 18 bpm SpO2: 96% Temperature: 36.1 (C) / 97.0 (F) Weight: 182 lbs Code: 85102-6 Functional Status No Functional Status data Reason [...] Diagnosis: Primary insomnia[ICD10: F51.01] Deb webb MD, [facility] CPT-4: 68661 01/01/2021 ([id number]) 27483 EST. PATIENT, LEVEL IV Diagnosis: Essential (primary) hypertension[ICD10: I10] Diagnosis: Occipital headache[ICD10: R51.9] Diagnosis: Cerebrovascular accident (CVA) due to other mechanism[ICD10: I63.89] Deb Sanchez MD, [facility] CPT-4: 81728 10/02/2020 ([id number]) 66712 EST. PATIENT, LEVEL IV Diagnosis: Generalized anxiety disorder[ICD10: F41.1] Diagnosis: Major depressive disorder, single episode, moderate[ICD10: F32.1] Diagnosis: Skin change[ICD10: R23.9] Sharda Sanchez MD, [facility] CPT-4: 51720 09/13/2020 ([id number]) 19120 EST. PATIENT, LEVEL III Diagnosis: Hospital discharge follow-up[ICD10: Z09] Diagnosis: Generalized anxiety disorder[ICD10: F41.1] Diagnosis: Major depressive disorder, single episode, moderate[ICD10: F32.1] Sharda Sanchez MD, [facility] CPT-4: 31821 09/06/2020 ([id number]) 65777 EST. PATIENT, LEVEL IV Diagnosis: Essential (primary) hypertension[ICD10: I10] Diagnosis: Cerebrovascular accident (CVA) due to other mechanism[ICD10: I63.89] Diagnosis: Mixed hyperlipidemia[ICD10: E78.2] Deb albert MD, [facility] CPT-4: 58119 08/21/2020 [id number] EST. PATIENT, LEVEL III Diagnosis: Dysuria[ICD10: R30.0] Sharda Sanchez MD, [facility] CPT- 4: 16680 08/12/2020 [id number] EST. PATIENT, LEVEL III Diagnosis: Orthostatic hypotension[ICD10: I95.1] Diagnosis: Generalized weakness[ICD10: R53.1] Diagnosis: Cerebrovascular accident (CVA) due to other mechanism[ICD10: I63.89] Sharda Sanchez MD, [facility] CPT-4: 87244 07/08/2020 93318 EST. PATIENT, LEVEL IV Diagnosis: Orthostatic hypotension[ICD10: I95.1] Sharda Sanchez MD, [facility] CPT-4: 24257 07/01/2020 ([id number]) 48392 EST. PATIENT, LEVEL IV Diagnosis: Essential (primary) hypertension[ICD10: I10] Diagnosis: Cerebrovascular accident (CVA) due to other mechanism[ICD10: I63.89] Diagnosis: Generalized weakness[ICD10: R53.1] Deb albert MD, [facility] CPT-4: 55903 06/18/2020 ([id number] 75414 EST. PATIENT, LEVEL IV Diagnosis: Dysuria[ICD10: R30.0] Diagnosis: Acute cystitis with hematuria[ICD10: N30.01] Diagnosis: Essential (primary) hypertension[ICD10: I10] Diagnosis: Cerebrovascular accident (CVA) due to other mechanism[ICD10: I63.89] [facility] CPT-4: 84332 05/08/2020 ([id number]) OFFICE/OUTPATIENT VISIT NEW Diagnosis: Essential (primary) hypertension[ICD10: I10] Diagnosis: Mixed hyperlipidemia[ICD10: E78.2] Diagnosis: Generalized weakness[ICD10: R53.1] Diagnosis: Cerebrovascular accident (CVA) due to other mechanism[ICD10: I63.89] [facility] CPT-4: 08951 04/17/2020 Plan of Care Planned Activity Notes [...] clinic today 01/01/2021 Appointment: Deb Sanchez WPtel: [address] [place], [place] [phone] (30 min) Complex 01/01/2021 Patient Education: Patient Medication Summary Completed 01/01/2021 Appointment: Sharda Rolle WPtel: [phone] [facility] (30 min) Complex 12/18/2020 Visit Plan: Chronic [...] current management. 10/02/2020 Appointment: Deb Sanchez WPtel: [phone] [facility] (15 min) Moderate 10/02/2020 Patient Education: Patient [...] for removal. 09/13/2020 Appointment: [facility] ([facility]) Complex 09/13/2020 Patient Education: [...] this patient. 09/06/2020 [phone] ([facility] min) Complex 09/06/2020 Patient Education: [...] management. 08/21/2020 [phone] ([facility]) Moderate 08/21/2020 Patient Education: Patient Medication Summary Completed 08/21/2020 Patient Education: Cholesterol Management Completed 08/21/2020 Visit Plan: UTI - pt with positive urina lysis - culture sent if appropriate. Antibiotic electronically prescribed to pt's pharmacy of choice. Pt to call if symptoms do not improve. 08/12/2020 [facility]ment[phone] ([facility] min) Complex 08/12/2020 Patient Education: [...] home PT 07/08/2020 Appointment: Sharda Rolle WPtel: [phone] [facility] (30 min) Complex 07/08/2020 Patient Education: Patient Medication Summary Completed 07/08/2020 Visit Plan: pt is on chronic antihyperte nsive medication - the medication has been adjusted down to attempt to alleviate the low blood pressures. 07/01/2020 Appointment: Sharda Rolle WPtel: [phone] [facility] (30 min) Complex 07/01/2020 Patient Education: Patient [...] current management. 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 Hypertension - well controlled - continue [...] 60 minutes. 04/17/2020 [facility]ment: [phone] New Patient 04/17/2020 Patient Education: Patient [...] if UTI doesn't improve, consult Urology See junior high [employer] principal to assess vision changes 05/08/2020 . 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 Hypertension - well controlled - continue [...]
--- OUTSIDE RECORDS SUMMARY | 2021-03-14 09:21 | XMS REPORT | CCD ---
Author Author Derek Sanchez Organization Deb Sanchez MD, [facility] Address [address] [place] [address] Phone Care Team Providers Care Magazine Supervisor Name Role Phone Deb Sanchez PP Unavailable CCM Unavailable Summary Purpose Interface Exchange Insurance Providers Payer name Policy type / Coverage type Covered libertarian ID Effective Begin Date Effective End Date WPS Medicare Part B Medicare Part B [id number] Unknown Unkno wn Aetna Medicare Part B [id number] Unknown Unknown Family history Mother Diagnosis Age At Onset Heart Attack Unknown Father Diagnosis Age At Onset Colon cancer Unknown Hypertension Unknown Social History Social History Element Codes Description Effective Dates Marital status Unknown rebeca 04/17/2020 Number of children Unknown 4 04/17/2020 Employment Unknown Retired 04/17/[address]: 4776376 Quit less than 10 years ago 0 [...] Fill Instructions amitriptyline 10 mg tablet RxNorm: 060609 Take 1 Tablet(s) Oral every evening 03/10/2021 07/07/2021 Active carvedilol 3.125 mg tablet RxNorm: 275653 Take 1 Tablet(s) Oral two times a day 02/20/2021 07/19/2021 Active carvedilol 3.125 mg tablet RxNorm: 111668 Take 1 Tablet(s) Oral two times a day 01/24/2021 01/24/2021 Inactive amitriptyline 10 mg tablet RxNorm: 631496 Take 1 Tablet(s) Oral every evening 10/02/2020 01/29/2021 Inactive sertraline 50 mg tablet RxNorm: 236928 Take 1 Tablet(s) Oral every day to take with 100mg to equal 150mg daily 09/13/2020 09/07/2021 Active Zoloft 25 mg tablet RxNorm: 683021 Take 1 Tablet(s) Ora l every day in addition to the 100mg daily to equal 125mg daily 09/06/2020 10/02/2020 Inactive tamsulosin 0.4 mg capsule RxNorm: 479272 1 Capsule(s) Oral every da y 08/26/2020 No Stop Date Active carvedilol 3.125 mg tablet RxNorm: 835014 Take 1 Tablet(s) Oral two times a day 08/21/2020 12/18/2020 Inactive doxycycline hyclate 100 mg capsule RxNorm: 8537538 1 Cap purvi(s) Oral two times a day 08/12/2020 08/22/2020 Inactive Eliquis 5 mg tablet RxNorm: 9486716 1 Tablet(s) Oral two times a da y 05/17/2020 05/12/2021 Active cephalexin 500 mg capsule RxNorm: 798996 1 Capsule(s) Oral thre e times a day 05/17/2020 05/24/2020 Inactive cephalexin 500 mg capsule RxNorm: 123693 1 Capsule(s) Oral thre e times a day 05/17/2020 05/16/2020 Inactive sertraline 100 mg tablet RxNorm: 523184 1 Tablet(s) Oral every night at bedtime 05/16/2020 05/11/2021 Active Plavix 75 mg tablet RxNorm: 513737 1 Tablet(s) Oral every day 05/1605/11/2021 Active potassium chloride ER 20 mEq tablet,extended release(p art/cryst) RxNorm: 2529522 1 Tablet(s) Oral every day 05/16/2020 05/11/2021 Active m ay fill the 20meq capsule you have been filling atorvastatin 80 mg tablet RxNorm: 318110 1 Tablet(s) Or al every night at bedtime 05/16/2020 05/11/2021 Active carvedilol 12.5 mg tablet RxNorm: 564159 1 Tablet(s) Oral two t imes a day 05/16/2020 08/20/2020 Inactive allopurinol 100 mg tablet RxNorm: 364431 1 Tablet(s) Oral every day 05/16/2020 09/12/2020 Inactive cephalexin 500 mg capsule RxNorm: 845068 1 Capsule(s) O ral three times a day probiotic tid x 10 days 05/06/2020 05/15/2020 Inactive cephalexin 500 mg capsule RxNorm: 951855 1 Capsule(s) O ral three times a day probiotic tid x 10 days 05/06/2020 05/05/2020 Inactive Eliquis 5 mg tablet RxNorm: 5206920 1 Tablet(s) Oral two times a da y 04/21/2020 05/16/2020 Inactive carvedilol 12.5 mg tablet RxNorm: 317631 1 Tablet(s) Oral two t imes a day 04/21/2020 05/15/2020 Inactive potassium chloride ER 10 mEq tablet,extended release RxNorm: 618915 1 Tablet(s) Oral every day 04/21/2020 05/15/2020 Inactive allopurinol 100 mg tablet RxNorm: 660071 1 Tablet(s) Oral every day 04/21/2020 05/15/2020 Inactive sertraline 100 mg tablet RxNorm: 019444 1 Tablet(s) Oral every night at bedtime 04/21/2020 05/15/2020 Inactive atorvastatin 80 mg tablet RxNorm: 396870 1 Tablet(s) Or al every night at bedtime 04/21/2020 05/15/2020 Inactive Plavix 75 mg tablet RxNorm: 122443 1 Tablet(s) Oral every day 04/2105/15/2020 Inactive finasteride oral RxNorm: 34022 oral 08/26/2020 Active Medication Administered No Medication [...] 09/07/19 21 Unknown Cbc With Differential Ord2 Mitchell% 10.3 % 09/07/19 21 Unknown Cbc With [...] K/ul 021 Unknown Cbc With Differential Ord2 Mitchell ABS# 0.7 K/ul 09/07/19 21 Unknown Cbc With Differential Ord2 Eos ABS# 0.2 K/ul 09/07/19 21 Unknown Cbc With Differential Ord2 Baso ABS# 0.0 K/ul 09/07/19 21 Unknown Comp Metabolic Gon010 NA 140 mEq/L 09/06/2020 Unkn own Comp Metabolic Zln024 K 4.3 mEq/L 09/06/2020 Unkn own Comp Metabolic Ati288 CL 104 mEq/L 09/06/2020 Unkn own Comp Metabolic Avq695 CO2 29.0 mEq/L 09/06/2020 Unk nown Comp Metabolic Mym810 ANION GAP 11 09/06/2020 Unkn own Comp Metabolic Hit486 GLUCOSE 109 mg/dL 09/06/2020 Unkn own Comp Metabolic Fdh866 Creat 0.6 mg/dL 09/06/2020 Unkn own Comp Metabolic Mjw766 eGFR 153 ml/min/1.73m2 021 Unknown Comp Metabolic Dmw479 BUN 9 mg/dL 09/06/2020 Unkn own Comp Metabolic Tea177 B/C Ratio 16.1 Ratio 09/06/2020 Unk nown Comp Metabolic Qtf224 CALCIUM 9.1 mg/dL 09/06/2020 Unkn own Comp Metabolic Uzj170 ALK PHOS 128 U/L 09/06/2020 Unkn own Comp Metabolic Iza207 AST(SGOT) 20 U/L 09/06/2020 Unkn own Comp Metabolic Mke390 ALT(SGPT) 19 U/L 09/06/2020 Unkn own Comp Metabolic Vyh898 BILI T 0.4 mg/dL 09/06/2020 Unkn own Comp Metabolic Vfm115 ALBUMIN 3.5 g/dL 09/06/2020 Unkn own Comp Metabolic Wqo161 TPRO 6.3 g/dL 09/06/2020 Unkn own Comp Metabolic Ndy494 GLOB 2.8 g/dL 09/06/2020 Unkn own Comp Metabolic Nvr321 A/G Ratio 1.3 Ratio 09/06/2020 Unkn own Comp Metabolic Cxy497 Osmo 279 mOsmo 09/06/2020 Unkn own CULTURE, URINE M100 URINE CULTURE See Note 08/15/2020 Unknown Comp Metabolic Hnb981 NA 143 mEq/L 08/12/2020 Unkn own Comp Metabolic Trb251 K 4.0 mEq/L 08/12/2020 Unkn own Comp Metabolic Qrx791 CL 108 mEq/L 08/12/2020 Unkn own Comp Metabolic Xcv587 CO2 27.0 mEq/L 08/12/2020 Unk nown Comp Metabolic Heo114 ANION GAP 12 08/12/2020 Unkn own Comp Metabolic Bjk698 GLUCOSE 109 mg/dL 08/12/2020 Unkn own Comp Metabolic Fvy440 Creat 0.7 mg/dL 08/12/2020 Unkn own Comp Metabolic Pbz589 eGFR 129 ml/min/1.73m2 021 Unknown Comp Metabolic Usn187 BUN 9 mg/dL 08/12/2020 Unkn own Comp Metabolic Usb768 B/C Ratio 13.8 Ratio 08/12/2020 Unk nown Comp Metabolic Zyp380 CALCIUM 9.1 mg/dL 08/12/2020 Unkn own Comp Metabolic Rmq361 ALK PHOS 120 U/L 08/12/2020 Unkn own Comp Metabolic Vvv596 AST(SGOT) 21 U/L 08/12/2020 Unkn own Comp Metabolic Gim381 ALT(SGPT) 19 U/L 08/12/2020 Unkn own Comp Metabolic Zjj878 BILI T 0.4 mg/dL 08/12/2020 Unkn own Comp Metabolic Jzs374 ALBUMIN 3.9 g/dL 08/12/2020 Unkn own Comp Metabolic Wnj979 TPRO 6.3 g/dL 08/12/2020 Unkn own Comp Metabolic Kgs532 GLOB 2.4 g/dL 08/12/2020 Unkn own Comp Metabolic Nil401 A/G Ratio 1.6 Ratio 08/12/2020 Unkn own Comp Metabolic Ggz024 Osmo 284 mOsmo 08/12/2020 Unkn own Cbc [...] 08/13/19 21 Unknown Cbc With Differential Ord2 Mitchell% 12.4 % 08/13/19 21 Unknown Cbc With [...] K/ul 021 Unknown Cbc With Differential Ord2 Mitchell ABS# 1.0 K/ul 08/13/19 21 Unknown Cbc [...] IIV NO PRSV INCREASED AG IM CPT-4: 88909 01/01/2021 URINALYSIS NONAUTO W/O SCOPE CPT-4: 93720 05/06/2020 Vital Signs Date Vital 01/01/2021 Blood Pressure 1: 120/70 Code: 8480-6 BMI: 23.3 Code: 38999-8 Heart Rate 1: 88 bpm Height: 6' Code: 8302-2 Respiratory Rate: 18 bpm SpO2: 95% Temperature: 36.2 (C) / 97.2 (F) Weight: 172 lbs Code: 99024-1 10/02/2020 Blood Pressure 1: 118/70 Code: 8480-6 BMI: 21.2 Code: 90342-6 Heart Rate 1: 91 bpm Height: 6' Code: 8302-2 Respiratory Rate: 18 bpm SpO2: 93% Temperature: 36.7 (C) / 98.1 (F) Weight: 156 lbs Code: 49304-1 09/13/2020 Blood Pressure 1: 128/74 Code: 8480-6 BMI: 20.3 Code: 59263-9 Heart Rate 1: 68 bpm Height: 6' Code: 8302-2 SpO2: 97% Weight: 150 lbs Code: 03022-1 08/21/2020 Blood Pressure 1: 100/70 Code: 8480-6 BMI: 20.9 Code: 69511-1 Heart Rate 1: 104 bpm Height: 6' Code: 8302-2 Respiratory Rate: 16 bpm SpO2: 98% Temperature: 37.0 (C) / 98.6 (F) Weight: 153 lbs 13 oz Code: 95160-0 08/12/2020 Blood Pressure 1: 110/74 Code: 8480-6 Heart Rate 1: 73 bpm Height: Code: 8302-2 SpO2: 98% Temperature: 36.4 (C) / 97.5 (F) Weight: Code: 98943-4 07/08/2020 Blood Pressure 1: 126/68 Code: 8480-6 Heart Rate 1: 66 bpm Height: Code: 8302-2 SpO2: 98% Weight: Code: 07294-0 07/01/2020 Blood Pressure 1: 110/64 Code: 8480-6 Heart Rate 1: 65 bpm Height: Code: 8302-2 SpO2: 96% Temperature: 36.7 (C) / 98.0 (F) Weight: Code: 71979-6 06/18/2020 Blood Pressure 1: 120/64 Code: 8480-6 Heart Rate 1: 64 bpm Height: Code: 8302-2 SpO2: 96% Temperature: 36.3 (C) / 97.3 (F) Weight: Code: 88403-8 05/08/2020 Blood Pressure 1: 122/64 Code: 8480-6 Heart Rate 1: 62 bpm Height: 6' Code: 8302-2 Respiratory Rate: 18 bpm SpO2: 97% Temperature: 36 .2 (C) / 97.2 (F) Weight: Code: 80175-6 04/17/2020 Blood Pressure 1: 124/74 Code: 8480-6 BMI: 24.7 Code: 16932-4 Heart Rate 1: 64 bpm Height: 6' Code: 8302-2 Respiratory Rate: 18 bpm SpO2: 96% Temperature: 36.1 (C) / 97.0 (F) Weight: 182 lbs Code: 24203-7 Functional Status No Functional Status data Reason For Visit Reason For Visit Effective Dates Notes hypertension 01/01/2021 headache 10/02/2020 hypertension 09/13/2020 Hospital Follow Up 09/06/2020 hypertension 08/21/2020 dysuria 08/12/2020 hypertension 07/08/2020 dizziness 07/01/2020 hypertension 06/18/2020 hypertension 05/08/2020 hypertension 04/17/2020 Encounters Encounter Performer Location Codes Date ( 62255 EST. PATIENT, LEVEL IV Diagnosis: Essential (primary) hypertension[ICD10: I10] Diagnosis: Generalized anxiety disorder[ICD10: F41.9] Diagnosis: Frequency of micturition[ICD10: R35.0] Diagnosis: Benign prostatic hyperplasia with urinary frequency[ICD10: N40.1] Diagnosis: Primary insomnia[ICD10: F51.01] Deb webb MD, [facility] CPT-4: 19312 01/01/2021 ([id number]) 21012 EST. PATIENT, LEVEL IV Diagnosis: Essential (primary) hypertension[ICD10: I10] Diagnosis: Occipital headache[ICD10: R51.9] Diagnosis: Cerebrovascular accident (CVA) due to other mechanism[ICD10: I63.89] [facility] CPT-4: 95807 10/02/2020 ([id number]) 05571 EST. PATIENT, LEVEL IV Diagnosis: Generalized anxiety disorder[ICD10: F41.1] Diagnosis: Major depressive disorder, single episode, moderate[ICD10: F32.1] Diagnosis: Skin change[ICD10: R23.9] Sharda Sanchez MD, [facility] CPT-4: 66250 09/13/2020 ([id number]) 43620 EST. PATIENT, LEVEL III Diagnosis: Hospital discharge follow-up[ICD10: Z09] Diagnosis: Generalized anxiety disorder[ICD10: F41.1] Diagnosis: Major depressive disorder, single episode, moderate[ICD10: F32.1] Sharda Sanchez MD, [facility] CPT-4: 65050 09/06/2020 ([id number]) 88622 EST. PATIENT, LEVEL IV Diagnosis: Essential (primary) hypertension[ICD10: I10] Diagnosis: Cerebrovascular accident (CVA) due to other mechanism[ICD10: I63.89] Diagnosis: Mixed hyperlipidemia[ICD10: E78.2] Deb albert MD, [facility] CPT-4: 55036 08/21/2020 13120 EST. PATIENT, LEVEL III Diagnosis: Dysuria[ICD10: R30.0] Sharda Sanchez MD, [facility] CPT- 4: 13643 08/12/2020 24890 EST. PATIENT, LEVEL III Diagnosis: Orthostatic hypotension[ICD10: I95.1] Diagnosis: Generalized weakness[ICD10: R53.1] Diagnosis: Cerebrovascular accident (CVA) due to other mechanism[ICD10: I63.89] Sharda Sanchez MD, [facility] CPT-4: 16803 07/08/2020 48763 EST. PATIENT, LEVEL IV Diagnosis: Orthostatic hypotension[ICD10: I95.1] Sharda Sanchez MD, [facility] CPT-4: 77183 07/01/2020 ([id number]) 01237 EST. PATIENT, LEVEL IV Diagnosis: Essential (primary) hypertension[ICD10: I10] Diagnosis: Cerebrovascular accident (CVA) due to other mechanism[ICD10: I63.89] Diagnosis: Generalized weakness[ICD10: R53.1] Deb albert MD, [facility] CPT-4: 18099 06/18/2020 ([id number]) 41811 EST. PATIENT, LEVEL IV Diagnosis: Dysuria[ICD10: R30.0] Diagnosis: Acute cystitis with hematuria[ICD10: N30.01] Diagnosis: Essential (primary) hypertension[ICD10: I10] Diagnosis: Cerebrovascular accident (CVA) due to other mechanism[ICD10: I63.89] [facility] CPT-4: 10113 05/08/2020 ([id number]) OFFICE/OUTPATIENT VISIT NEW Diagnosis: Essential (primary) hypertension[ICD10: I10] Diagnosis: Mixed hyperlipidemia[ICD10: E78.2] Diagnosis: Generalized weakness[ICD10: R53.1] Diagnosis: Cerebrovascular accident (CVA) due to other mechanism[ICD10: I63.89] [facility] CPT-4: 53986 04/17/2020 Plan of Care Planned Activity Notes [...] today 01/01/2021 [phone] [place] ([facility] Complex 01/01/2021 Patient Education: Patient Medication Summary Completed 01/01/2021 [phone] [facility] 12/18/2020 Visit Plan: Chronic [...] current management. 10/02/2020 Appointment: Deb Sanchez WPtel: [phone] [facility] (15 min) Moderate 10/02/2020 Patient Education: Patient [...] removal. 09/13/2020 [phone] ([facility] Complex 09/13/2020 Patient Education: Patient [...] prescribed for this patient. 09/06/2020 [phone] ([facility] Complex 09/06/2020 Patient Education: Patient [...] management. 08/21/2020 [phone] ([facility] min) Moderate 08/21/2020 Patient Education: Patient Medication Summary Completed 08/21/2020 Patient Education: Cholesterol Management Completed 08/21/2020 Visit Plan: UTI - pt with positive urina lysis - culture sent if appropriate. Antibiotic electronically prescribed to pt's pharmacy of choice. Pt to call if symptoms do not improve. 08/12/2020 [facility]ment[phone] ([facility]) Complex 08/12/2020 Patient Education: Patient [...] home PT 07/08/2020 [phone] [facility] ([facility]) Complex 07/08/2020 Patient Education: Patient Medication Summary Completed 07/08/2020 Visit Plan: pt is on chronic antihyperte nsive medication - the medication has been adjusted down to attempt to alleviate the low blood pressures. 07/01/2020 Appointment: Sharda Rolle WPtel: [facility] (30 min) Complex 07/01/2020 Patient Education: Patient [...] current management. 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 Hypertension - well controlled - continue [...] 60 minutes. 04/17/2020 Appointment: [phone] [facility] [place] New Patient 04/17/2020 Patient Education: Patient [...] rates will have pal hale contact you guys for home PT . pt is on [...] if UTI doesn't improve, consult Urology See soda clerk to assess vision changes 05/08/2020 . 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 Hypertension - well controlled - continue [...]
[2021-03-14] MEDS ORDERED: POVIDONE (BETADINE) OPHTH SOLN 5% 30 ML OP ONE (09:30)
[2021-03-14] MEDS ORDERED: MOXIFLOXACIN OPHTH SOLN 5 MG/ML 0.3 ML SYRINGE OP ONE (09:30)
[2021-03-14] MEDS ORDERED: LIDOCAINE PF 1% 2 ML VIAL IR PRN (09:30)
[2021-03-14] MEDS ORDERED: TIMOLOL MALEATE 0.5% 5 ML (TIMOPTIC) BTL OU PRN (09:30)
[2021-03-14] MEDS: TETRACAINE 0.5% OPHTH SOLN 4 ML BTL (SINGLE DOSE ONLY) OU PRN ×4 (09:40→09:56)
[2021-03-14] MEDS: PHENYLEPHRINE 10% OPHTH (NEO-SYN) 5 ML BTL OU SCH ×3 (09:46→09:56)
[2021-03-14] MEDS: TROPICAMIDE 1% OPH SOLN (MYDRIACYL) 15 ML BTL OP SCH ×3 (09:46→09:56)
[2021-03-14 09:48] VITALS: BP 158/82
--- NOTE | 2021-03-14 10:00 | Ophthalmologist Pre-Op Note ---
Pre-Operative Progress Note H&P Reviewed The H&P was reviewed, patient examined and no changes noted. Date H&P Reviewed: Mar 14, 2021 Time H&P Reviewed: 10:00 Pre-Op Dx Cataract, Right Eye ELLIE HUGHES MD Mar 14, 2021 10:00
--- NOTE | 2021-03-14 10:23 | Ophthalmology Operative Report ---
Cataract removal/placement IOL PREOPERATIVE DIAGNOSIS: Cataract Right Eye POSTOPERATIVE DIAGNOSIS: Cataract Right Eye PROCEDURE: Cataract removal and placement of posterior chamber implant, right eye SURGEON: Jayjay Hughes ANESTHESIA: Topical with sedation COMPLICATIONS: None ESTIMATED BLOOD LOSS: Minimal DESCRIPTION OF PROCEDURE: After proper informed consent was obtained, the patient, a 70 male, was taken to the Operating Room and the right eye was anesthetized with tetracaine. The right eye was then prepped and draped in the usual manner. A wire lid speculum was placed. A paracentesis was made at the left hand position. Preservative free lidocaine was injected into the anterior chamber followed by viscoelastic. A clear corneal incision was made in the temporal position. A capsulorrhexis was preformed and the central nuclear and cortical material were removed. The posterior capsule was polished and Alexander 19.0 AU00T0 IOL was placed into the capsular bag. The residual viscoelastic was aspirated and balanced saline solution was injected into the anterior chamber. Moxifloxacin was injected into the anterior chamber. The wound was checked and found to be water tight. The patient tolerated the procedure well without complications. JAYJAY HUGHES MD Mar 14, 2021 10:23
--- NOTE | 2021-03-14 10:25 | Ophthalmology Operative Report ---
Cataract, Miotic Pupil PREOPERATIVE DIAGNOSIS: 1. Cataract Right Eye 2. IFIS POSTOPERATIVE DIAGNOSIS: 1. Cataract Right Eye 2. IFIS PROCEDURE: 1. Cataract removal and placement of posterior chamber implant, right eye 2. Pupillary expansion with malyugin ring SURGEON: Jayjay Hughes ANESTHESIA: Topical with sedation COMPLICATIONS: None ESTIMATED BLOOD LOSS: Minimal DESCRIPTION OF PROCEDURE: After proper informed consent was obtained, the patient, a 70 male, was taken to the Operating Room and the right eye was anesthetized with Tetracaine. The eye was then prepped and draped in the usual manner. A wire lid speculum was placed. A paracentesis was made at the left hand position. Preservative free lidocaine was injected into anterior chamber followed by viscoelastic. A clear corneal incision was made in the temporal position. The malyugin ring was injected into the anterior chamber and the pupil was dilated. A capsulorrhexis was preformed and the central nuclear and cortical material were removed. The posterior capsule was polished and Alexander 19.0 AU00T0 IOL was placed into the capsular bag. The malyugin ring was removed. The residual viscoelastic was aspirated and the balanced saline solution was injected into the anterior chamber. Moxifloxacin was injected into the anterior chamber. The wound was checked and found to be water tight. The patient tolerated the procedure well without complications. JAYJAY HUGHES MD Mar 14, 2021 10:25
[2021-03-14 10:29] VITALS: BP 137/80
[2021-03-14] MEDS ORDERED: acetaZOLAMIDE ER 500 MG CAP (DIAMOX SEQUELS) PO ONE (11:00)
--- NOTE | 2021-03-14 11:27 | Anesthesia-General Post-Op ---
MAC Patient Condition Mental Status/LOC: Same as Preop Cardiovascular: Satisfactory Nausea/Vomiting: Absent Respiratory: Satisfactory Pain: Controlled Complications: Absent Post Op Complications Complications None Follow Up Care/Instructions Patient Instructions None needed. Anesthesiology Discharge Order Discharge Order Patient is doing well, no complaints, stable vital signs, no apparent adverse anesthesia problems. No complications reported per nursing. RYAN LÓPEZ CRNA Mar 14, 2021 11:27
== END 2021-03-14 10:30 ==
LOC: SDC 09:17
PROVIDERS: ATTEND Specialist
DX: H25.11 Age-related nuclear cataract, right eye (principal); H21.81 Floppy iris syndrome; I10 Essential (primary) hypertension; E78.5 Hyperlipidemia, unspecified; F32.A Depression, unspecified; F41.9 Anxiety disorder, unspecified; Z79.899 Other long term (current) drug therapy; Z86.73 Personal history of transient ischemic attack (TIA), and cerebral infarction without residual deficits; Z90.89 Acquired absence of other organs; Z80.0 Family history of malignant neoplasm of digestive organs
CPT/HCPCS: 66982; V2632

== ENCOUNTER 2021-03-28 09:13 | Day surgery (SDC) | payer MEDICARE, OTHER ==
[~2021-03-28] VITALS: Ht 182.9 cm; Wt 80.1 kg
[2021-03-28] MEDS: TETRACAINE 0.5% OPHTH SOLN 4 ML BTL (SINGLE DOSE ONLY) OU PRN ×4 (09:22→09:39)
[2021-03-28 09:26] VITALS: BP 122/77
[2021-03-28] MEDS: PHENYLEPHRINE 10% OPHTH (NEO-SYN) 5 ML BTL OU SCH ×3 (09:28→09:39)
[2021-03-28] MEDS: TROPICAMIDE 1% OPH SOLN (MYDRIACYL) 15 ML BTL OP SCH ×3 (09:28→09:39)
[2021-03-28] MEDS ORDERED: TIMOLOL MALEATE 0.5% 5 ML (TIMOPTIC) BTL OU PRN (09:30)
[2021-03-28] MEDS ORDERED: LIDOCAINE PF 1% 2 ML VIAL IR PRN (09:30)
[2021-03-28] MEDS ORDERED: MOXIFLOXACIN OPHTH SOLN 5 MG/ML 0.3 ML SYRINGE OP ONE (09:30)
[2021-03-28] MEDS ORDERED: POVIDONE (BETADINE) OPHTH SOLN 5% 30 ML OP ONE (09:30)
[2021-03-28] MEDS ORDERED: MIDAZOLAM 2 MG/2 ML (VERSED) VIAL ONE (09:43)
--- NOTE | 2021-03-28 09:50 | Ophthalmologist Pre-Op Note ---
Pre-Operative Progress Note H&P Reviewed The H&P was reviewed, patient examined and no changes noted. Date H&P Reviewed: Mar 28, 2021 Time H&P Reviewed: 09:50 Pre-Op Dx Cataract, Left Eye ELLIE HUGHES MD Mar 28, 2021 09:50
--- NOTE | 2021-03-28 10:17 | Ophthalmology Operative Report ---
Cataract, Miotic Pupil PREOPERATIVE DIAGNOSIS: 1. Cataract Left Eye 2. Miotic Pupil POSTOPERATIVE DIAGNOSIS: 1. Cataract Left Eye 2. Miotic Pupil PROCEDURE: 1. Cataract removal and placement of posterior chamber implant, left eye 2. Pupillary expansion with malyugin ring SURGEON: Jayjay Hughes ANESTHESIA: Topical with sedation COMPLICATIONS: None ESTIMATED BLOOD LOSS: Minimal DESCRIPTION OF PROCEDURE: After proper informed consent was obtained, the patient, a 70 male, was taken to the Operating Room and the left eye was anesthetized with Tetracaine. The eye was then prepped and draped in the usual manner. A wire lid speculum was placed. A paracentesis was made at the left hand position. Preservative free lid ocaine was injected into anterior chamber followed by viscoelastic. A clear corneal incision was made in the temporal position. The malyugin ring was injected into the anterior chamber and the pupil was dilated. A capsulorrhexis was preformed and the central nuclear and cortical material were removed. The posterior capsule was polished and Alexander 19.0 AU00T0 IOL was placed into the capsular bag. The myalgian ring was removed. The residual viscoelastic was aspirated and the balanced saline solution was injected into the anterior chamber. Moxifloxacin was injected into the anterior chamber. The wound was checked and found to be water tight. The patient tolerated the procedure well without complications. [Limbal Relaxing Incision placed ] [ ]mm at [ ]. JAYJAY HUGHES MD Mar 28, 2021 10:17
[2021-03-28 10:21] VITALS: BP 118/74
[2021-03-28] MEDS ORDERED: acetaZOLAMIDE ER 500 MG CAP (DIAMOX SEQUELS) PO ONE (10:30)
--- NOTE | 2021-03-28 10:50 | Anesthesia-General Post-Op ---
MAC Patient Condition Mental Status/LOC: Same as Preop Cardiovascular: Satisfactory Nausea/Vomiting: Absent Respiratory: Satisfactory Pain: Controlled Complications: Absent Post Op Complications Complications None Follow Up Care/Instructions Patient Instructions None needed. Anesthesiology Discharge Order Discharge Order Patient is doing well, no complaints, stable vital signs, no apparent adverse anesthesia problems. No complications reported per nursing. RYAN LPÓEZ CRNA Mar 28, 2021 10:49
== END 2021-03-28 10:22 | disposition home or self-care (01) ==
LOC: SDC 09:13
PROVIDERS: ATTEND Specialist
DX: H25.12 Age-related nuclear cataract, left eye (principal); H57.03 Miosis; I10 Essential (primary) hypertension; F03.90 Unspecified dementia, unspecified severity, without behavioral disturbance, psychotic disturbance, mood disturbance, and anxiety; Z87.891 Personal history of nicotine dependence; F41.9 Anxiety disorder, unspecified; F32.A Depression, unspecified; Z79.899 Other long term (current) drug therapy; Z79.01 Long term (current) use of anticoagulants; Z70.2 Counseling related to sexual behavior and orientation of third party; Z86.73 Personal history of transient ischemic attack (TIA), and cerebral infarction without residual deficits
CPT/HCPCS: 66982; V2632

== ENCOUNTER → 2021-04-08 | Outpatient (CLI) | payer MEDICARE, OTHER ==
[~2021-04-08] MED LIST changes: +CATHETER FLUSH 10 ML SYR IV PRN; +HOLD METFORMIN - RECEIVED CONTRAST 20 ML VIAL IV SCH; +IOHEXOL 350 MG/ML 100 ML (OMNIPAQUE 350) VIAL IV ONE; +NS 100 ML (IVPB) BAG IV ONE
[2021-04-08 09:33] LABS: CREATININE SERUM 0.82 MG/DL (0.60-1.30)
--- NOTE | 2021-04-08 10:25 | Diagnostic Imaging Report ---
PROCEDURE: CT angiography of the head and CT angiography of the neck with and without contrast. TECHNIQUE: Contiguous noncontrast images were obtained from the skull base through the vertex. After intravenous contrast administration, helical CT angiography of the neck was performed. Source data was reformatted into 3D MIP projections. Delayed post contrast acquisition was also obtained. Auto Exposure Controls were utilized during the CT exam to meet ALARA standards for radiation dose reduction. INDICATION: Carotid artery stenosis. Follow-up. COMPARISON: 03/26/2020. FINDINGS: CTA Neck: The visualized portions of the aortic arch demonstrate no evidence of aneurysm or dissection. There is common origin of the carotid arteries consistent with bovine arch. There are penetrating atheromatous ulcers versus pseudoaneurysms off the proximal left subclavian artery measuring 0.6 cm for the more proximal eccentric outpouching and 0.9 cm for the more distal. The common carotid arteries and internal carotid arteries demonstrate a tortuous course. There is calcified atherosclerotic plaque in the bilateral carotid bulbs and proximal internal carotid arteries. A stent is visualized in the proximal left internal carotid artery and is widely patent. Atherosclerotic plaque in the right carotid bulb and proximal right internal carotid artery results in less than 50% stenosis. No evidence of dissection in the carotid systems. The external carotid arteries are patent and unremarkable. 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 The left vertebral artery origin is off the left subclavian artery. There is stenosis at the origin of the left vertebral artery of approximately 80%. No dissection is seen in the left vertebral artery. No acute osseous abnormalities are seen in the cervical spine. The craniocervical junction is intact. No focal osseous lesions are seen. Included views through the lung apices demonstrate mild biapical scarring. CTA brain: Atherosclerotic plaque is seen in the boy[place] of the bilateral terminal internal carotid arteries without significant stenosis. No stenosis is seen in the bilateral anterior, middle, and posterior cerebral arteries. 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 No evidence of aneurysm the [place]. Both the right and left PICA arteries are identified. There is stenosis of the proximal basilar artery of approximately 80%. The terminal branch vessels including the superior cerebellar arteries unremarkable. CT head: No large acute territorial ischemia, mass, or hemorrhage. No midline shift or mass effect. Old infarct is seen in the right parieto-occipital region. Decreased attenuation is seen in the periventricular and subcortical white matter. The ventricles and cortical sulci are prominent. The basilar cisterns are patent and unremarkable. The calvarium is intact. The visualized paranasal sinuses are clear. IMPRESSION: 1. No stenosis or aneurysm in the [place]. No large vessel occlusion. 2. 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 The more distal basilar artery is widely patent. 3. 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 No significant flow is seen throughout the course of the right vertebral artery. Findings are likely chronic. 4. Stenosis of approximately 80% at the origin of the left vertebral artery. The remainder of the left vertebral artery is widely patent. 5. Stent within the proximal left internal carotid artery which is widely patent. 6. Moderate burden of atherosclerotic plaque in the right carotid bulb and proximal right internal carotid artery resulting in less than 50% stenosis. 7. 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 8. No large acute territorial ischemia, mass, or hemorrhage. 9. 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 Additional chronic microvascular disease is scattered throughout the periventricular and subcortical white matter. Dictated by: Dictated on workstation # [id number]
== END ==
LOC: RAD 09:06
PROVIDERS: ATTEND Physician Assistant
DX: I65.23 Occlusion and stenosis of bilateral carotid arteries (principal); I65.1 Occlusion and stenosis of basilar artery; I65.03 Occlusion and stenosis of bilateral vertebral arteries; I63.9 Cerebral infarction, unspecified; I67.89 Other cerebrovascular disease
CPT/HCPCS: 36415; 70496; 70498; 82565; 84520

== ENCOUNTER → 2021-04-15 | Outpatient (CLI) | payer MEDICARE, OTHER ==
[~2021-04-15] MED LIST changes: -CATHETER FLUSH 10 ML SYR IV PRN; -HOLD METFORMIN - RECEIVED CONTRAST 20 ML VIAL IV SCH; -IOHEXOL 350 MG/ML 100 ML (OMNIPAQUE 350) VIAL IV ONE; -NS 100 ML (IVPB) BAG IV ONE
== END ==
LOC: CARD 14:09
PROVIDERS: ATTEND Internal Medicine Cardiovascular Disease
DX: I11.9 Hypertensive heart disease without heart failure (principal); I34.0 Nonrheumatic mitral (valve) insufficiency
CPT/HCPCS: 93306

== ENCOUNTER 2021-04-30 09:19 | Day surgery (SDC) | payer MEDICARE, OTHER ==
[2021-04-30] VITALS (13 sets, daily range): BP systolic 109–152; BP diastolic 37–101
[~2021-04-30] VITALS: Ht 182.9 cm; Wt 79.3 kg
[2021-04-30] MEDS ORDERED: NS IV 1000 ML 1,000 ML IV ONE (09:45)
[2021-04-30] MEDS ORDERED: LIDOCAINE 2% VISCOUS 15 ML UDC PO ONE (09:45)
[2021-04-30] MEDS ORDERED: LIDOCAINE 2% VISCOUS 15 ML UDC ONE (10:02)
[2021-04-30] MEDS ORDERED: NS IV 1000 ML 1,000 ML ONE (10:03)
--- NOTE | 2021-04-30 10:13 | Diagnostic Imaging Report ---
INDICATION: Severe mitral regurgitation. TIME OF EXAM: 9:57 AM. COMPARISON: Correlation is made with the prior chest from 08/28/2020. FINDINGS: The heart size is normal. The pulmonary vascularity is unremarkable. The lungs are clear. No infiltrate, effusion, or pneumothorax is detected. IMPRESSION: No acute cardiopulmonary process is detected. Dictated by: Dictated on workstation # [id number]
[2021-04-30 10:16] LABS: HEMATOCRIT 45 % (40-54); HEMOGLOBIN 14.5 g/dL (13.3-17.7); MEAN CORPUSCULAR HEMOGLOBIN 33 pg (25-34); MEAN CORPUSCULAR HGB CONC 32 g/dL (32-36); MEAN CORPUSCULAR VOLUME 102 fL (80-99); MEAN PLATELET VOLUME 10.4 fL (9.0-12.2); PLATELET COUNT 198 10^3/uL (130-400); WHITE BLOOD COUNT 8.3 10^3/uL (4.3-11.0)
[2021-04-30] MEDS ORDERED: MIDAZOLAM 5 MG/5 ML (VERSED) VIAL ONE (10:24)
[2021-04-30] MEDS ORDERED: fentaNYL INJ 100 MCG/2 ML AMP ONE (10:24)
[2021-04-30 10:34] LABS: INR 1.5 (0.8-1.4); PROTHROMBIN TIME PATIENT 18.6 SEC (12.2-14.7)
[2021-04-30] MEDS ORDERED: SERT-413 PO (10:42)
[2021-04-30] MEDS ORDERED: SERT-414 PO (10:42)
[2021-04-30] MEDS ORDERED: RIVA20TA2 PO (10:42)
[2021-04-30] MEDS ORDERED: AMIT100T2 PO (10:42)
[2021-04-30 10:43] LABS: ALBUMIN 4.3 GM/DL (3.2-4.5); BILIRUBIN,TOTAL 0.7 MG/DL (0.1-1.0); CALCIUM 9.6 MG/DL (8.5-10.1); CREATININE SERUM 0.84 MG/DL (0.60-1.30); TOTAL PROTEIN 7.3 GM/DL (6.4-8.2)
[2021-04-30] MEDS ORDERED: MIDAZOLAM 5 MG/5 ML (VERSED) VIAL IV ONE (10:45)
[2021-04-30] MEDS ORDERED: fentaNYL INJ 100 MCG/2 ML AMP IV ONE (10:45)
--- NOTE | 2021-04-30 10:48 | Conscious Sedation/ASA ---
Conscious Sedation Pre-Proced Time 10:48 ASA Score 3 For ASA 3 and 4: Consider anesthesia and medical clearance. Also, for patients with a history of failed moderate sedation consider anesthesia. Airway Lungs Heart ASA score ASA 1: a normal healthy patient ASA 2: a patient with a mild systemic disease (mid diabetes, controlled hypertension, obesity x ASA 3: a patient with a severe systemic disease that limits activity (angina, COPD, prior Myocardial infarction) ASA 4: a patient with an incapacitating disease that is a constant threat to life (CHF, renal failure) ASA 5: a moribund patient not expected to survive 24 hrs. (ruptured aneurysm) ASA 6: a declared brain- patient whose organs are being harvested. For emergent operations, add the letter E after the classification Mallampati Classification Grade 3 Sedation Plan Analgesia, Amnesia, Plan communicated to team members, Discussed options with patient/fam, Discussed risks with patient/fam The patient is an appropriate candidate to undergo the planned procedure, sedation, and anesthesia. The patient immediately re-assessed prior to indication. BERNICE MONTERO MD Apr 30, 2021 10:48
[2021-04-30] MEDS ORDERED: LOSA25TA41 PO (11:04)
--- NOTE | 2021-04-30 11:04 | Discharge Inst-Post CATH ---
Discharge Inst-CATH/EP Problems Reviewed?: Yes Post Cardiac Cath/EP D/C Inst Follow Up/Plan Appointment with Dr. Leyva's office in 2 to 4 weeks <b>CARDIAC CATH/EP PROCEDURE DISCHARGE INSTRUCTIONS</b> ACTIVITY * Go Home directly and rest. * Limit activity of the leg (or wrist if it was used) for 7 days including aer obics, swimming, jogging, bicycling, etc. * Restrict stair-climbing for 7 days if possible, if not, climb up with your non-cath leg, then bring together on the same step. * Avoid lifting, pushing, pulling or excessive movement of the affected extremi ty for 7 days. * Customary sexual activity may be resumed after 2 days-use caution not to use a position that strains or causes pain to the affected extremity. * No driving for 24 hours. * NO SMOKING. * Avoid straining for bowel movements for 7 days. * Gentle walking on level ground is allowed. * Returning to work will depend on the type of procedure and the results. Your doctor will discuss this with you. CALL YOUR DOCTOR FOR ANY OF THE FOLLOWING: *If bleeding from the puncture site occurs- Apply gentle pressure to site with clean cloth and call your doctor or EMS. * If a knot or lump forms under the skin, increases in size, or causes pain. * If bruising appears to be worsening or moving further down your leg instead of disappearing. * Temperature above 101 F. CARE OF YOUR GROIN INCISION; * Bruising or purple discoloration of the skin near the puncture site is common. * You may shower only, no bathtub bathing for 5 days. Be careful to avoid slipping as your leg may feel stiff. * If a closure device was used on your femoral artery, please see the attached guide regarding care of the device and your leg. * Leave dressing on FOR 24 hours. CARE OF YOUR WRIST INCISION; * Bruising or purple discoloration of the skin near the puncture site is common. * You may shower. * DO NOT submerge wrist. * Leave dressing on FOR 24 hours. BERNICE LEYVA MD Apr 30, 2021 11:04
--- NOTE | 2021-04-30 11:05 | Clinic Account Progress/Dx ---
Clinic Account Progress/Dx DIAGNOSIS: Date Seen by Provider: Apr 30, 2021 Time Seen by Provider: 11:05 Severe mitral regurgitation Hypertension Palpitation BERNICE MONTERO MD Apr 30, 2021 11:05
== END 2021-04-30 13:10 | disposition home or self-care (01) ==
LOC: CATH 09:19
PROVIDERS: ATTEND Internal Medicine Cardiovascular Disease
DX: I34.0 Nonrheumatic mitral (valve) insufficiency (principal); I48.0 Paroxysmal atrial fibrillation; I25.10 Atherosclerotic heart disease of native coronary artery without angina pectoris; I10 Essential (primary) hypertension; E78.5 Hyperlipidemia, unspecified; I65.23 Occlusion and stenosis of bilateral carotid arteries; F32.A Depression, unspecified; N40.0 Benign prostatic hyperplasia without lower urinary tract symptoms; I69.391 Dysphagia following cerebral infarction; I69.398 Other sequelae of cerebral infarction; R13.10 Dysphagia, unspecified; H53.9 Unspecified visual disturbance; Z79.899 Other long term (current) drug therapy; Z79.01 Long term (current) use of anticoagulants; Z87.891 Personal history of nicotine dependence
CPT/HCPCS: 36415; 71045; 80053; 80061; 85027; 85610; 85730; 87081; 93005; 93312

== ENCOUNTER → 2021-05-07 | Outpatient (CLI) | payer MEDICARE, OTHER ==
[~2021-05-07] VITALS: Ht 182 cm; Wt 79.0 kg
[~2021-05-07] MED LIST changes: +AMIT100T2 PO; +CATHETER FLUSH 10 ML SYR IVP PRN; +LOSA25TA41 PO; +REGADENOSON 0.4 MG/5 ML SYR (LEXISCAN) IV NR; +REGADENOSON 0.4 MG/5 ML SYR (LEXISCAN) IV ONE; +RIVA20TA2 PO; +SERT-413 PO
[2021-05-07 09:16] VITALS: BP 126/73
--- NOTE | 2021-05-07 16:02 | Cardiology Stress Test Report ---
Stress Test Report Date of Procedure/Referring: Date of Procedure: May 07, 2021 PCP Bernice Leyva MD Admitting Physician Deb Sanchez MD Indications: CP Baseline Heart Rate: 69 Baseline Blood Pressure: Blood Pressure Systolic: 126 Blood Pressure Diastolic: 73 Baseline Vitals Vital Signs Date Time Temp Pulse Resp B/P (MAP) Pulse Ox O2 Delivery O2 Flow Rate FiO2 05/07/21 09:16 69 17 126/73 (90) Baseline EKG: Baseline EKG: NSR Summary After explaining the procedure to the patient, he signed a consent and then brought to the stress nuclear laboratory. Patient received 0.4 mg Lexiscan for stress test, ECG, heart rate and blood pressure were monitored continuously. Resting and stress dose of radio tracer were injected, imaging was acquired and reviewed in short axis, horizontal long axis and vertical long axis views. TID: 0.99 SSS: 5 SDS: 4 EF: 53 1. Patient tolerated Lexiscan well 2. Diaphragmatic attenuation with motion artifact affecting the quality of the images, mild decrease uptake at the mid to apical inferior wall inferolateral wall with mild reversibility most probably secondary to extracardiac attenuation. 3. Normal left ventricular size, EF 53% BERNICE LEYVA MD May 07, 2021 16:02
== END ==
LOC: CARD 07:18
PROVIDERS: ATTEND Internal Medicine Cardiovascular Disease
DX: I25.10 Atherosclerotic heart disease of native coronary artery without angina pectoris (principal); I10 Essential (primary) hypertension
CPT/HCPCS: 78452; 93017; A9502

== ENCOUNTER 2021-07-09 07:48 | Day surgery (SDC) | payer MEDICARE, OTHER ==
[~2021-07-09] VITALS: Ht 182.9 cm; Wt 79.8 kg
[2021-07-09] VITALS (12 sets, daily range): BP systolic 110–146; BP diastolic 74–92
[~2021-07-09 07:48] MED LIST changes: -CATHETER FLUSH 10 ML SYR IVP PRN; -REGADENOSON 0.4 MG/5 ML SYR (LEXISCAN) IV NR; -REGADENOSON 0.4 MG/5 ML SYR (LEXISCAN) IV ONE
[2021-07-09] MEDS ORDERED: HEParin (CATH LAB) 2,000 ML IV ONE (07:59)
[2021-07-09] MEDS ORDERED: LIDOCAINE 1% INJ 20 ML VIAL ONE ×2 (07:59→10:20)
[2021-07-09] MEDS ORDERED: NS IV 1000 ML 1,000 ML ONE (07:59)
[2021-07-09] MEDS ORDERED: NS IV 1000 ML 1,000 ML IV SCH ×2 (08:00→11:00)
[2021-07-09 08:19] LABS: HEMATOCRIT 44 % (40-54); HEMOGLOBIN 14.7 g/dL (13.3-17.7); MEAN CORPUSCULAR HEMOGLOBIN 33 pg (25-34); MEAN CORPUSCULAR HGB CONC 33 g/dL (32-36); MEAN CORPUSCULAR VOLUME 99 fL (80-99); MEAN PLATELET VOLUME 10.5 fL (9.0-12.2); PLATELET COUNT 200 10^3/uL (130-400); WHITE BLOOD COUNT 8.1 10^3/uL (4.3-11.0)
[2021-07-09 08:30] LABS: ALBUMIN 4.2 GM/DL (3.2-4.5); POTASSIUM 3.7 MMOL/L (3.6-5.0)
[2021-07-09 08:31] LABS: CALCIUM 9.5 MG/DL (8.5-10.1)
[2021-07-09 08:32] LABS: TOTAL PROTEIN 6.9 GM/DL (6.4-8.2)
[2021-07-09] MEDS ORDERED: AMT10T PO (08:33)
[2021-07-09] MEDS ORDERED: LOSA25TA41 PO (08:33)
[2021-07-09 08:34] LABS: BILIRUBIN,TOTAL 0.7 MG/DL (0.1-1.0)
[2021-07-09 08:36] LABS: CREATININE SERUM 0.9 MG/DL (0.60-1.30)
--- NOTE | 2021-07-09 08:36 | Diagnostic Imaging Report ---
Indication: Pre-heart catheterization. Time of Exam: 8:16 AM Correlation is made with prior chest from 04/30/2021. Heart is enlarged. Lungs are clear. No infiltrates are seen. There is no effusion or pneumothorax. IMPRESSION: Mild cardiomegaly. Study is otherwise unremarkable. Dictated by: Dictated on workstation # [id number]
[2021-07-09] MEDS ORDERED: MIDAZOLAM 5 MG/5 ML (VERSED) VIAL ONE (09:45)
[2021-07-09] MEDS ORDERED: fentaNYL INJ 100 MCG/2 ML AMP ONE (09:45)
--- NOTE | 2021-07-09 09:51 | Conscious Sedation/ASA ---
Conscious Sedation Pre-Proced Time 09:51 ASA Score 3 For ASA 3 and 4: Consider anesthesia and medical clearance. Also, for patients with a history of failed moderate sedation consider anesthesia. Airway Lungs Heart ASA score ASA 1: a normal healthy patient ASA 2: a patient with a mild systemic disease (mid diabetes, controlled hypertension, obesity x ASA 3: a patient with a severe systemic disease that limits activity (angina, COPD, prior Myocardial infarction) ASA 4: a patient with an incapacitating disease that is a constant threat to life (CHF, renal failure) ASA 5: a moribund patient not expected to survive 24 hrs. (ruptured aneurysm) ASA 6: a declared brain- patient whose organs are being harvested. For emergent operations, add the letter E after the classification Mallampati Classification Grade 3 Sedation Plan Analgesia, Amnesia, Plan communicated to team members, Discussed options with patient/fam, Discussed risks with patient/fam The patient is an appropriate candidate to undergo the planned procedure, sedation, and anesthesia. The patient immediately re-assessed prior to indication. BERNICE MONTERO MD July 09, 2021 09:51
[2021-07-09] MEDS ORDERED: HEParin 1000 UNIT/ML (10ML VIAL) FOR BOLUS ONE (10:33)
[2021-07-09] MEDS ORDERED: NITRO DRIP 25000 MCG/D5W 0 ML IV ONE (10:33)
--- NOTE | 2021-07-09 10:57 | Discharge Inst-Post CATH ---
Discharge Inst-CATH/EP Problems Reviewed?: Yes Post Cardiac Cath/EP D/C Inst Follow Up/Plan Appointment with Dr. Leyva's office and 1 to 2 weeks <b>CARDIAC CATH/EP PROCEDURE DISCHARGE INSTRUCTIONS</b> ACTIVITY * Go Home directly and rest. * Limit activity of the leg (or wrist if it was used) for 7 days including ae robics, swimming, jogging, bicycling, etc. * Restrict stair-climbing for 7 days if possible, if not, climb up with your non-cath leg, then bring together on the same step. * Avoid lifting, pushing, pulling or excessive movement of the affected extrem ity for 7 days. * Customary sexual activity may be resumed after 2 days-use caution not to use a position that strains or causes pain to the affected extremity. * No driving for 24 hours. * NO SMOKING. * Avoid straining for bowel movements for 7 days. * Gentle walking on level ground is allowed. * Returning to work will depend on the type of procedure and the results. Your doctor will discuss this with you. CALL YOUR DOCTOR FOR ANY OF THE FOLLOWING: *If bleeding from the puncture site occurs- Apply gentle pressure to site with clean cloth and call your doctor or EMS. * If a knot or lump forms under the skin, increases in size, or causes pain. * If bruising appears to be worsening or moving further down your leg instead of disappearing. * Temperature above 101 F. CARE OF YOUR GROIN INCISION; * Bruising or purple discoloration of the skin near the puncture site is common. * You may shower only, no bathtub bathing for 5 days. Be careful to avoid slipping as your leg may feel stiff. * If a closure device was used on your femoral artery, please see the attached guide regarding care of the device and your leg. * Leave dressing on FOR 24 hours. CARE OF YOUR WRIST INCISION; * Bruising or purple discoloration of the skin near the puncture site is common. * You may shower. * DO NOT submerge wrist. * Leave dressing on FOR 24 hours. BERNICE LEYVA MD July 09, 2021 10:57
[2021-07-09] MEDS ORDERED: PATIENT MAY USE OWN MEDS, ALL PO SCH (11:00)
[2021-07-09] MEDS ORDERED: ACETAMINOPHEN 325 MG TABLET ONE (11:58)
[2021-07-09] MEDS ORDERED: ACETAMINOPHEN 325 MG TABLET PO ONE (12:00)
--- NOTE | 2021-07-09 12:00 | Cardiac Cath Report ---
Cardiac Cath Report Physician (s)/Jewelry Technician (s) Physician BERNICE MONTERO MD Pre-Procedure Diagnosis Pre-Procedure Diagnosis: Coronary artery disease Post-Procedure Note Procedure Start Date: July 09, 2021 Name of Procedure: Sheath placement and the right femoral artery, Right iliac angiogram Findings/Procedure Note Procedure note, 71 years old gentleman with severe mitral regurgitation, peripheral arterial disease, scheduled for coronary angiogram. I had significant difficulty placing a 6 German sheath in the right femoral artery that is heavily calcified. I was unable to advance a Storq wire or J- wire through the iliac artery. Sheath was left in place and I attempted to access the left femoral artery without success, I was able to advance a wire to the common femoral artery on the left but I was unable to proceed. Did not place the sheath on the left femo ral artery, manual pressure applied I attempted with a straight catheter advanced it to the right common iliac artery and attempted with command 18 short-tip wire to cross the lesion I had few advancement with the wire without ability to succeed to the abdominal aorta. Due to the lack of presence of vascular surgery backup I did not want to proceed with aggressive intervention. The sheath and the right groin was removed and manual pressure applied. 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 Discussion and recommendation I will arrange for referral for evaluation at a tertiary care center with the presence of vascular surgeon backup during attempt to cross the iliac artery. Anesthesia Type: Conscious Sedation Estimated blood loss (mL): 10 ML Contrast Amount: 6 ML Total Radiation Dose: 82 MGY Post-Procedure Diagnosis Post-operative diagnosis: Severe mitral regurgitation Coronary artery disease Peripheral arterial disease Hypertension BERNICE MONTERO MD July 09, 2021 12:00
== END 2021-07-09 16:25 ==
LOC: CATH 07:48 → SDC 11:14 → CATH 16:25
PROVIDERS: ATTEND Internal Medicine Cardiovascular Disease
DX: I25.10 Atherosclerotic heart disease of native coronary artery without angina pectoris (principal); I34.0 Nonrheumatic mitral (valve) insufficiency; I73.9 Peripheral vascular disease, unspecified; I10 Essential (primary) hypertension; H54.61 Unqualified visual loss, right eye, normal vision left eye; I48.92 Unspecified atrial flutter; E78.5 Hyperlipidemia, unspecified; I65.02 Occlusion and stenosis of left vertebral artery; I65.23 Occlusion and stenosis of bilateral carotid arteries; I48.0 Paroxysmal atrial fibrillation; F32.A Depression, unspecified; Z87.891 Personal history of nicotine dependence; Z79.01 Long term (current) use of anticoagulants; Z79.899 Other long term (current) drug therapy
CPT/HCPCS: 36140; 71045; 80053; 80061; 85027; 85610; 85730; 87081; 93005; C1769 ×2; C1887; C1894; 36415

== ENCOUNTER 2022-01-01 18:18 | Inpatient (IN) | payer MEDICARE, OTHER ==
[~2022-01-01] VITALS: Ht 182.9 cm; Wt 78.1 kg
[~2022-01-01 18:18] MED LIST changes: +AMT10T PO
[2022-01-01] MEDS ORDERED: LACTATED RINGERS 1,000 ML IV ONE (18:30)
[2022-01-01 18:50] LABS: BASOPHILS # (AUTO) 0.1 10^3/uL (0.0-0.1); BASOPHILS % (AUTO) 1 % (0-10); EOSINOPHILS % (AUTO) 0 % (0-10); LYMPHOCYTES # (AUTO) 0.6 10^3/uL (1.0-4.0); LYMPHOCYTES % (AUTO) 7 % (12-44); MEAN CORPUSCULAR HEMOGLOBIN 20 pg (25-34); MEAN CORPUSCULAR HGB CONC 27 g/dL (32-36); MEAN CORPUSCULAR VOLUME 74 fL (80-99); MEAN PLATELET VOLUME 11.5 fL (9.0-12.2); MONOCYTES # (AUTO) 1.6 10^3/uL (0.0-1.0); MONOCYTES % (AUTO) 19 % (0-12); NEUTROPHILS # (AUTO) 6.1 10^3/uL (1.8-7.8); NEUTROPHILS % (AUTO) 73 % (42-75); PLATELET COUNT 296 10^3/uL (130-400); WHITE BLOOD COUNT 8.4 10^3/uL (4.3-11.0)
[2022-01-01 18:52] LABS: ALBUMIN 3.9 GM/DL (3.2-4.5); POTASSIUM 4.7 MMOL/L (3.6-5.0)
[2022-01-01 18:53] LABS: HEMATOCRIT 18 % (40-54); HEMOGLOBIN 4.9 g/dL (13.3-17.7)
[2022-01-01 18:53] LABS: CLARITY,URINE CLOUDY; COLOR,URINE YELLOW; GLUCOSE, URINE (UA) NEGATIVE (NEGATIVE); KETONES,URINE TRACE (NEGATIVE); LEUKOCYTE ESTERASE ,URINE TRACE (NEGATIVE); NITRITE,URINE NEGATIVE (NEGATIVE); PH,URINE 5.5 (5-9); PROTEIN,URINE 1+ (NEGATIVE)
[2022-01-01 18:54] LABS: CALCIUM 8.9 MG/DL (8.5-10.1)
[2022-01-01 18:55] LABS: TOTAL PROTEIN 6.8 GM/DL (6.4-8.2)
[2022-01-01 18:57] LABS: BILIRUBIN,TOTAL 0.6 MG/DL (0.1-1.0)
[2022-01-01 18:59] LABS: CREATININE SERUM 1.21 MG/DL (0.60-1.30)
[2022-01-01 19:06] LABS: BACTERIA,URINE NEGATIVE /HPF; BILIRUBIN,URINE 1+ (NEGATIVE); HYALINE CASTS, URINE RARE /LPF; SQUAMOUS EPITHELIAL CELL,UR 0-2 /HPF; WBC,URINE 0-2 /HPF
--- NOTE | 2022-01-01 19:09 | Diagnostic Imaging Report ---
INDICATION: Cough. COMPARISON: 07/09/2021. FINDINGS: There are chronic interstitial changes present within the lungs when correlated with previous imaging. There is stable enlargement of the cardiac silhouette. There is blunting of the left costophrenic angle which is also present on the comparison exam. The right costophrenic angle is normal. There is no new airspace consolidation. There is no pneumothorax. IMPRESSION: Chronic pulmonary interstitial changes with what is likely chronic blunting of the left costophrenic angle. Stable enlargement of the cardiac silhouette. Pulmonary vascularity appears appropriate. There is no new airspace consolidation to suggest pneumonia. Dictated by: Dictated on workstation # [id number]
[2022-01-01 19:12] LABS: ANISOCYTOSIS MARKED; BAND NEUTROPHILS 0 %; BASOPHILS % (MANUAL) 2 %; EOSINOPHILS % (MANUAL) 0 %; HYPOCHROMASIA MARKED; LYMPHOCYTES % (MANUAL) 7 %; MICROCYTOSIS MODERATE; MONOCYTES % (MANUAL) 9 %; NEUTROPHILS % (MANUAL) 82 %; POLYCHROMASIA MODERATE; TARGET CELLS SLIGHT
[2022-01-01 19:13] LABS: ELLIPT/OVALOCYTES SLIGHT; SCHISTOCYTES SLIGHT
--- NOTE | 2022-01-01 19:14 | ED General ---
General Chief Complaint: Cough/Cold/Flu Symptoms Stated Complaint: COUGH Nursing Triage Note: PT TO RM 9 BY EMS WITH CC OF COUGH AND NOT FEELING WELL. EMS REPORTS FAMILY BELIEVES PT IS NOT FEELING WELL X2 DAYS. HX OF DEMENTIA Source of Information: Patient, EMS, Family, Old Records Exam Limitations: No Limitations History of Present Illness Date Seen by Provider: Jan 01, 2022 Time Seen by Provider: 18:20 Initial Comments This is 71-year-old gentleman presents to the emergency room via EMS with generalized ill feeling for the past 1 to 2 days. noted cough this afternoon. Patient has dementia and prior stroke and is therefore a poor historian. EMS notes a heart rate of 130 with blood pressure of 102/60. He has similar vital signs on arrival and is hypotensive as well as febrile. Oxygen saturation is in the upper 90s on room air. is his primary caregiver and she has 2 sitters that help her. He does not walk. He has a DNR per . Dr. Sanchez is his primary care provider and Dr. Leyva and Dr. aSrabia are his cardiology team. He is alert to person and place but disoriented to age and month. Patient complains of thirst and has dry mucous membranes. He is presently anticoagulated on Xarelto. He has extensive cardiovascular disease including severe mitral regurgitation and severe peripheral vascular disease resulting in need for CEA and bilateral iliac stents. denied history of arrhythmia, but A. fib is documented in his past medical history. It is unclear when or how that diagnosis was made. Allergies and Home Medications Allergies Coded Allergies: Penicillins (Unverified Allergy, Intermediate, RASH, 02/08/06) codeine (Unverified Allergy, Intermediate, RASH, 02/08/06) Patient Home Medication List Home Medication List Reviewed: Yes Acetaminophen (Tylenol Extra Strength) 500 Mg Tablet, 500-1,000 MG PO Q8H PRN for PAIN-MILD (1-4), (Reported) Entered as Reported by: GARCIA VIRAMONTES on 08/27/20 1442 Allopurinol (Allopurinol) 100 Mg Tablet, 100 MG PO 1600, (Reported) Entered as Reported by: MARICRUZ RUSSELL on 03/06/21 1240 Amitriptyline HCl (Amitriptyline HCl) 10 Mg Tablet, 10 MG PO EVENING, (Reported) Entered as Reported by: JACKELYN NASCIMENTO on 07/09/21 0833 Atorvastatin Calcium (Atorvastatin Calcium) 80 Mg Tablet, 80 MG PO 1800, (Reported) Entered as Reported by: MARICRUZ RUSSELL on 03/06/21 1240 Carvedilol (Carvedilol) 3.125 Mg Tablet, 3.125 MG PO BID WITH MEALS, (Reported) Entered as Reported by: MARICRUZ RUSSELL on 03/06/21 1240 Finasteride (Finasteride) 5 Mg Tablet, 5 MG PO 0900, (Reported) Entered as Reported by: GARCIA VIRAMONTES on 08/27/20 1441 Losartan Potassium (Losartan Potassium) 25 Mg Tablet, 25 MG PO DAILY, (Reported) Entered as Reported by: JACKELYN NASCIMENTO on 07/09/21 0833 Potassium Chloride (Klor-Con M20) 20 Meq Tab.er.prt, 20 MEQ PO 0730, (Reported) Entered as Reported by: GARCIA VIRAMONTES on 08/27/20 144 Rivaroxaban (Xarelto Tablet) 20 Mg Tablet, 20 MG PO 1800, (Reported) Entered as Reported by: GARCIA VIRAMONTES on 04/30/21 104 Sertraline HCl (Sertraline HCl) 50 Mg Tablet, 50 MG PO HS, (Reported) Entered as Reported by: GARCIA VIRAMONTES on 04/30/21 104 Sertraline HCl (Sertraline HCl) 100 Mg Tablet, 100 MG PO HS, (Reported) Entered as Reported by: GARCIA VIRAMONTES on 04/30/21 104 Tamsulosin HCl (Flomax) 0.4 Mg Cap, 0.4 MG PO 1930, (Reported) Entered as Reported by: GARCIA VIRAMONTES on 08/27/20 1441 Review of Systems Review of Systems Constitutional: see HPI EENTM: see HPI Respiratory: see HPI Cardiovascular: see HPI Gastrointestinal: no symptoms reported Genitourinary: no symptoms reported Musculoskeletal: no symptoms reported Skin: no symptoms reported Psychiatric/Neurological: See HPI Hematologic/Lymphatic: See HPI Immunological/Allergic: no symptoms reported Past Bbtuhrd-Jazzse-Omzjvr Hx Patient Social History Tobacco Use?: No Substance use?: No Alcohol Use?: No Pt feels they are or have been: No Immunizations Up To Date First/Initial COVID19 Vaccinat: unk Second COVID19 Vaccination Ori: unk Seasonal Allergies Seasonal Allergies: No Past Medical History Surgery/Hospitalization HX: stroke mar 2020, Surgeries: Yes Appendectomy, Ear Surgery (Cataract), Joint Replacement (Left hip, left knee), Vascular Surgery (Carotid endarterectomy, bilateral iliac stents) Respiratory: No Cardiac: Yes Atrial Fibrillation (A flutter in 2020), High Cholesterol, Hypertension, Peripheral Vascular, Valvular Heart Disease Neurological: Yes Dementia, Stroke Reproductive Disorders: No Sexually Transmitted Disease: No HIV/AIDS: No Genitourinary: Yes Benign Prostatic Hyperpl, Prostate Problems, Bladder Infection, Kidney Stones Gastrointestinal: No Musculoskeletal: Yes Arthritis Endocrine: No HEENT: No Loss of Vision: Denies Hearing Impairment: Hard of Hearing Cancer: No Psychosocial: No Anxiety, Depression Integumentary: No Blood Disorders: No Family Medical History Heart Disease, Hypertension Physical Exam-Suspected Sepsis Physical Exam Vital Signs Vital Signs - First Documented 01/01/22 18:22 Temp 38.3 Pulse 129 Resp 20 B/P (MAP) 90/63 (72) Pulse Ox 98 Capillary Refill : Less Than 3 Seconds Blood Pressure Mean: 72 Height, Weight, BMI Height: '" Weight: lbs. oz. kg; 23.85 BMI Method: General Appearance: No Apparent Distress, WD/WN, Other (Generally ill-appearing and pale) HEENT: PERRL/EOMI, Normal ENT Inspection, Other (Dry mouth) Neck: Normal Inspection; No JVD Respiratory: No Accessory Muscle Use, No Respiratory Distress, Crackles (Faint in the bases bilaterally) Cardiovascular: No Edema, No Murmur, Tachycardia (Regular), Other (Sinus rhythm on telemetry) Gastrointestinal: Normal Bowel Sounds, Non Tender, Soft Extremity: Normal Inspection, No Pedal Edema Neurologic/Psychiatric: Alert, Normal Mood/Affect, Disoriented (Disoriented to age and month) Skin: warm/dry, pallor Focused Exam Lactate Level 01/01/22 18:30: Lactic Acid Level 3.77*H Lactic Acid Level Laboratory Tests Test 01/01/22 18:30 Lactic Acid Level 3.77 MMOL/L (0.50-2.00) *H Progress/Results/Core Measures Suspected Sepsis SIRS Temperature: Pulse: 129 Respiratory Rate: 20 Laboratory Tests 01/01/22 18:30: White Blood Count 8.4 Blood Pressure 90 /63 Mean: 72 10/27/22 18:30: Lactic Acid Level 3.77*H Laboratory Tests 01/01/22 18:30: Creatinine 1.21, Platelet Count 296, Total Bilirubin 0.6 Results/Orders Lab Results Laboratory Tests Test 01/01/22 18:30 01/01/22 18:36 01/01/22 18:44 Range/Units White Blood Count 8.4 4.3-11.0 10^3/uL Red Blood Count 2.43 L 4.30-5.52 10^6/uL Hemoglobin 4.9 *L 13.3-17.7 g/dL Hematocrit 18 *L 40-54 % Mean Corpuscular Volume 74 L 80-99 fL Mean Corpuscular Hemoglobin 20 L 25-34 pg Mean Corpuscular Hemoglobin Concent 27 L 32-36 g/dL Red Cell Distribution Width 22.0 H 10.0-14.5 % Platelet Count 296 130-400 10^3/uL Mean Platelet Volume 11.5 9.0-12.2 fL Immature Granulocyte % (Auto) 1 % Neutrophils (%) (Auto) 73 42-75 % Lymphocytes (%) (Auto) 7 L 12-44 % Monocytes (%) (Auto) 19 H 0-12 % Eosinophils (%) (Auto) 0 0-10 % Basophils (%) (Auto) 1 0-10 % Neutrophils # (Auto) 6.1 1.8-7.8 10^3/uL Lymphocytes # (Auto) 0.6 L 1.0-4.0 10^3/uL Monocytes # (Auto) 1.6 H 0.0-1.0 10^3/uL Eosinophils # (Auto) 0.0 0.0-0.3 10^3/uL Basophils # (Auto) 0.1 0.0-0.1 10^3/uL Immature Granulocyte # (Auto) 0.1 0.0-0.1 10^3/uL Neutrophils % (Manual) 82 % Lymphocytes % (Manual) 7 % Monocytes % (Manual) 9 % Eosinophils % (Manual) 0 % Basophils % (Manual) 2 % Band Neutrophils 0 % Polychromasia MODERATE Hypochromasia MARKED Anisocytosis MARKED Microcytosis MODERATE Target Cells SLIGHT Elliptocytes SLIGHT Schistocytes SLIGHT Sodium Level 137 135-145 MMOL/L Potassium Level 4.7 3.6-5.0 MMOL/L Chloride Level 107 98-107 MMOL/L Carbon Dioxide Level 18 L 21-32 MMOL/L Anion Gap 12 5-14 MMOL/L Blood Urea Nitrogen 15 7-18 MG/DL Creatinine 1.21 0.60-1.30 MG/DL Estimat Glomerular Filtration Rate 64 BUN/Creatinine Ratio 12 Glucose Level 197 H 70-105 MG/DL Lactic Acid Level 3.77 *H 0.50-2.00 MMOL/L Calcium Level 8.9 8.5-10.1 MG/DL Corrected Calcium 9.0 8.5-10.1 MG/DL Total Bilirubin 0.6 0.1-1.0 MG/DL Aspartate Amino Transf (AST/SGOT) 26 5-34 U/L Alanine Aminotransferase (ALT/SGPT) 10 0-55 U/L Alkaline Phosphatase 105 40-136 U/L C-Reactive Protein High Sensitivity 1.02 H 0.00-0.50 MG/DL Total Protein 6.8 6.4-8.2 GM/DL Albumin 3.9 3.2-4.5 GM/DL Influenza Type A (RT-PCR) Not Detected Not Detecte Influenza Type B (RT-PCR) Not Detected Not Detecte SARS-CoV-2 RNA (RT-PCR) Detected H Not Detecte Urine Color YELLOW Urine Clarity CLOUDY Urine pH 5.5 5-9 Urine Specific [place] >=1.030 1.016-1.022 Urine Protein 1+ H NEGATIVE Urine Glucose (UA) NEGATIVE NEGATIVE Urine Ketones TRACE H NEGATIVE Urine Nitrite NEGATIVE NEGATIVE Urine Bilirubin 1+ H NEGATIVE Urine Urobilinogen 0.2 < = 1.0 MG/DL Urine Leukocyte Esterase TRACE H NEGATIVE Urine RBC (Auto) TRACE-I H NEGATIVE Urine RBC NONE /HPF Urine WBC 0-2 /HPF Urine Squamous Epithelial Cells 0-2 /HPF Urine Renal Epithelial Cells 5-10 /HPF Urine Crystals NONE /LPF Urine Bacteria NEGATIVE /HPF Urine Casts PRESENT /LPF Urine Hyaline Casts RARE /LPF Urine Mucus SMALL H /LPF Urine Culture Indicated NO My Orders Orders - JEREMIAH COLBERT MD Ed Iv/Invasive Line Start (01/01/22 18:22) Lactated Ringers (Lr 1000 Ml Iv Solution (01/01/22 18:30) Cbc With Automated Diff (01/01/22 18:22) Comprehensive Metabolic Panel (01/01/22 18:22) Blood Culture (01/01/22 18:22) Sputum Culture (01/01/22 18:22) Urinalysis (01/01/22 18:) Urine Culture (01/01/22 18:22) Protime With Inr (01/01/22 18:22) Partial Thromboplastin Time (01/01/22 18:22) Chest 1 View, Ap/Pa Only (01/01/22 18:22) Vital Signs Adult Sepsis Patie Q15M (01/01/22 18:22) O2 (01/01/22 18:22) Remove Rings In Anticipation O (01/01/22 18:) Lactic Acid Analyzer (01/01/22 18:) Hs C Reactive Protein (01/01/22 18:) Covid 19 Inhouse Test (01/01/22 18:22) Influenza A And B By Pcr (01/01/22 18:22) Manual Differential (01/01/22 18:30) Red Cells Leukocytes Reduced (01/01/22 19:01) Acetaminophen Tablet (Tylenol Tablet) (01/01/22 19:15) Type And Screen (01/01/22 19:01) Code/Resuscitation (01/01/22 19:26) Medications Given in ED Current Medications Medications Dose Ordered Sig/Sonia Route Start Time Stop Time Status Last Admin Dose Admin Acetaminophen 1,000 mg ONCE ONCE PO 01/01/22 19:15 01/01/22 19:16 DC 01/01/22 19:11 1,000 MG Lactated Ringer's 1,000 ml @ 0 mls/hr Q0M ONCE IV 01/01/22 18:30 01/01/22 18:31 DC 01/01/22 18:35 0 MLS/HR Vital Signs/I&O 01/01/22 01/01/22 18:22 19:11 Temp 38.3 38.0 Pulse 129 Resp 20 B/P (MAP) 90/63 (72) Pulse Ox 98 Capillary Refill : Less Than 3 Seconds Blood Pressure Mean: 72 Progress Note #1: Time: 19:25 Progress Note Septic work-up was pursued. Tylenol given for fever. 1 L LR started for hypotension. Patient was found to be positive for COVID-19. He also had severe anemia with hemoglobin of 4.9. 2 units of blood were ordered for transfusion. I discussed CODE STATUS with his who reported he is DNR. 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 Case was reviewed with Dr. Sanchez who requested admission to the ICU. Progress Note #2: Time: 19:41 Progress Note Patient was rolled and appeared to have good skin integrity posteriorly. There was scant stool smeared near the anus which was Hemoccult negative. Systolic blood pressure was 92 upon my reevaluation. Report has been given to Dr. Arteaga in ICU, and ICU bed is ready. Diagnostic Imaging Diagonstic Imaging: Xray Plain Films/CT/US/NM/MRI: chest Comments NAME: MARITZA BEGUM [facility] REC#: [id number] PT STATUS: REG ER : 1950 PHYSICIAN: JEREMIAH COLBERT MD ADMIT DATE: 01/01/22/ER Draft Date of Exam:01/01/22 CHEST 1 VIEW, AP/PA ONLY INDICATION: Cough. COMPARISON: 07/09/2021. FINDINGS: There are chronic interstitial changes present within the lungs when correlated with previous imaging. There is stable enlargement of the cardiac silhouette. There is blunting of the left costophrenic angle which is also present on the comparison exam. The right costophrenic angle is normal. There is no new airspace consolidation. There is no pneumothorax. IMPRESSION: Chronic pulmonary interstitial changes with what is likely chronic blunting of the left costophrenic angle. Stable enlargement of the cardiac silhouette. Pulmonary vascularity appears appropriate. There is no new airspace consolidation to suggest pneumonia. Dictated on workstation # [id number] Dict: 01/01/221903 Trans: 01/01/221908 [facility] [id number] Interpreted by: TONY CHRISTIAN MD Departure Communication (Admissions) Time/Spoke to Admitting Phy: 19:16 Dr. Sanchez Impression Primary Impression: COVID-19 Additional Impression: Severe anemia Disposition: ADMITTED INPATIENT Condition: Improved Admissions Decision to Admit Reason: Admit from ER (General) Decision to Admit/Date: Jan 01, 2022 Time/Decision to Admit Time: 19:16 Departure-Patient Inst. Referrals: ODALYS SANCHEZ MD (PCP/Family) Primary Care Physician JEREMIAH COLBERT MD Jan 01, 2022 19:14
[2022-01-01] MEDS ORDERED: ACETAMINOPHEN 500 MG TAB (TYLENOL) PO ONE (19:15)
[2022-01-01] MEDS ORDERED: NS IV 500 ML 500 ML IV PRN (20:30)
[2022-01-01 20:37] LABS: INR 1.3 (0.8-1.4); PROTHROMBIN TIME PATIENT 16.8 SEC (12.2-14.7)
[2022-01-01] MEDS ORDERED: NS IV 500 ML 500 ML ONE (21:04)
[2022-01-01 21:12] VITALS: BP 85/55
[2022-01-01 21:27] VITALS: BP 77/57
[2022-01-01] MEDS ORDERED: guaiFENesin SYRUP 100 MG/5 ML 10 ML (ROBITUSSIN SF) PO PRN (21:30)
[2022-01-01] MEDS ORDERED: ONDANSETRON 4 MG/2 ML (SDV) Z0FRAN IV PRN (21:30)
[2022-01-01] MEDS ORDERED: CATHETER FLUSH 10 ML SYR IVP PRN (21:30)
[2022-01-01] MEDS: CATHETER FLUSH 10 ML SYR IVP SCH (21:31)
--- NOTE | 2022-01-01 21:35 | Tele-ICU Progress Note ---
Progress Note 71M with dementia, prior CVA with deficits, CEA, BL iliac stents, aflutter admitted for COVID and anemia. Presented with a few days cough and general unwell symptoms. BP was 90 on arrival with HR 130s, minimally improved after 1L LR. Hg resulted at 4.9. Current BP 85/55 with first unit PRBC just hung a minute ago. He is on xarelto for aflutter. Stool for occult blood negative. - anemia: profound anemia at 4.9, down from 14.7 in July. Suspect a subacute process given relatively stable BP. Occult blood negative, but could be false negative. Hemolysis unlikely with Hg 0.6. Add on retic to exclude underlying marrow etiology. - COVID: feels unwell but saturating 98% RA. No specific therapy at this time. Supportive care. - hyperglycemia: glucose 197, not fasting. Prior glucose 110-170, some of which are probably fasting (AM inpatient labs). Will spot check at 0100 and check A1C in AM. If either are elevated, start sliding scale. - sepsis: does meet SIRS criteria, COVID+. No current evidence of concomitant bacterial infection. Cultures sent. Hold off on abx for now. Focused Exam Lactate Level 01/01/22 18:30: Lactic Acid Level 3.77*H 01/01/22 20:34: Lactic Acid Level 4.25*H Height, Weight, BMI Height: '" Weight: lbs. oz. kg; 25.52 BMI Method: Lactic Acid Level Laboratory Tests Test 01/01/22 18:30 01/01/22 20:34 Lactic Acid Level 3.77 MMOL/L (0.50-2.00) *H 4.25 MMOL/L (0.50-2.00) *H CASSANDRA BROWN MD Jan 01, 2022 21:35
[2022-01-01 21:38] LABS: RETICULOCYTE % 1.62 % (0.50-2.40)
[2022-01-01] MEDS: PHENYLEPHRINE DRIP 250 ML IV SCH (23:08)
[2022-01-01 23:34] VITALS: BP 83/62
[2022-01-01 23:55] VITALS: BP 88/57
[2022-01-02] VITALS (8 sets, daily range): BP systolic 71–98; BP diastolic 55–70
[2022-01-02 03:51] LABS: BASOPHILS # (AUTO) 0.1 10^3/uL (0.0-0.1); BASOPHILS % (AUTO) 1 % (0-10); EOSINOPHILS % (AUTO) 0 % (0-10); HEMATOCRIT 23 % (40-54); LYMPHOCYTES % (AUTO) 13 % (12-44); MEAN CORPUSCULAR HEMOGLOBIN 23 pg (25-34); MEAN CORPUSCULAR HGB CONC 30 g/dL (32-36); MEAN CORPUSCULAR VOLUME 77 fL (80-99); MEAN PLATELET VOLUME 11.4 fL (9.0-12.2); MONOCYTES # (AUTO) 2.1 10^3/uL (0.0-1.0); MONOCYTES % (AUTO) 27 % (0-12); NEUTROPHILS # (AUTO) 4.4 10^3/uL (1.8-7.8); NEUTROPHILS % (AUTO) 58 % (42-75); PLATELET COUNT 263 10^3/uL (130-400); WHITE BLOOD COUNT 7.5 10^3/uL (4.3-11.0)
[2022-01-02 03:54] LABS: HEMOGLOBIN 6.8 g/dL (13.3-17.7)
[2022-01-02 04:03] LABS: ALBUMIN 3.6 GM/DL (3.2-4.5); POTASSIUM 4.6 MMOL/L (3.6-5.0)
[2022-01-02 04:04] LABS: CALCIUM 8.4 MG/DL (8.5-10.1)
[2022-01-02 04:06] LABS: TOTAL PROTEIN 6.2 GM/DL (6.4-8.2)
[2022-01-02 04:07] LABS: BILIRUBIN,TOTAL 0.8 MG/DL (0.1-1.0)
[2022-01-02 04:09] LABS: CREATININE SERUM 1.38 MG/DL (0.60-1.30); PHOSPHORUS 3.7 MG/DL (2.3-4.7)
[2022-01-02] MEDS: KCL 20 MEQ TAB (K-DUR) PO SCH (04:11)
[2022-01-02] MEDS: POTASSIUM CL 10MEQ/50ML IVPB 50 ML IV SCH (04:11)
[2022-01-02 04:12] LABS: MAGNESIUM 1.7 MG/DL (1.6-2.4)
[2022-01-02] MEDS ORDERED: NS IV 500 ML 500 ML IV SCH ×4 (04:15→08:15)
[2022-01-02] MEDS: MAGNESIUM 1 GM/100 ML IVPB 100 ML IV SCH ×3 (04:21→04:39)
[2022-01-02] MEDS: ACETAMINOPHEN 500 MG TAB (TYLENOL) PO PRN ×2 (04:56→11:07)
[2022-01-02] MEDS: CATHETER FLUSH 10 ML SYR IVP SCH ×3 (06:30→20:37)
--- NOTE | 2022-01-02 08:13 | History & Physicial ---
History of Present Illness History of Present Illness Reason for visit/HPI Pt is a 71 y/o male who is known to me from clinic. Derek presented to the ER due to feeling unwell, he was found to be covid positive and had a hemoglobin of 4.9 on admission through the ER. Derek has history of prior strokes, and is confused today with poor recall of past events. He reports that he was feeling sick and his brought him to the hospital. per ER notes, his reported a cough, and she called EMS who noted low blood pressure and tachycardia. Date of Admission Jan 01, 2022 at 19:24 Date Seen by a Provider: Jan 02, 2022 Time Seen by a Provider: 08:00 I consulted on this patient on 01/02/22 08:12 Attending Physician Odalys Sanchez MD Admitting Physician Admitting Physician: Odalys Sanchez MD Attending Physician: Odalys Sanchez MD Consult eicu Allergies and Home Medications Allergies Coded Allergies: Penicillins (Unverified Allergy, Intermediate, RASH, 02/08/06) codeine (Unverified Allergy, Intermediate, RASH, 02/08/06) Patient Home Medication List Home Medication List Reviewed: Yes Acetaminophen (Tylenol Extra Strength) 500 Mg Tablet, 1,000 MG PO BID, (Reported) Entered as Reported by: GARCIA VIRAMONTES on 08/27/20 1442 Last Action: Reviewed Allopurinol (Allopurinol) 100 Mg Tablet, 100 MG PO 1600, (Reported) Entered as Reported by: MARICRUZ RUSSELL on 03/06/21 1240 Last Action: Continued Amitriptyline HCl (Amitriptyline HCl) 10 Mg Tablet, 10 MG PO 1930, (Reported) Entered as Reported by: JACKELYN NASCIMENTO on 07/09/21 0833 Last Action: Held Aspirin (Aspirin EC) 81 Mg Tablet.dr, 81 MG PO 0700, (Reported) Entered as Reported by: GARCIA VIRAMONTES on 01/02/22 1204 Last Action: Held Atorvastatin Calcium (Atorvastatin Calcium) 80 Mg Tablet, 80 MG PO 1900, (Reported) Entered as Reported by: MARICRUZ RUSSELL on 03/06/21 1240 Last Action: Continued Carvedilol (Carvedilol) 3.125 Mg Tablet, 3.125 MG PO 0700,1900, (Reported) Entered as Reported by: MARICRUZ RUSSELL on 03/06/21 1240 Last Action: Held Clopidogrel Bisulfate (Clopidogrel) 75 Mg Tablet, 75 MG PO 0700, (Reported) Entered as Reported by: GARCIA VIRAMONTES on 01/02/22 1204 Last Action: Held Finasteride (Finasteride) 5 Mg Tablet, 5 MG PO 0930, (Reported) Entered as Reported by: GARCIA VIRAMONTES on 08/27/20 144 Last Action: Continued Losartan Potassium (Losartan Potassium) 25 Mg Tablet, 25 MG PO 1900, (Reported) Entered as Reported by: JACKELYN NASCIMENTO on 07/09/21 0833 Last Action: Held Potassium Chloride (Klor-Con M20) 20 Meq Tab.er.prt, 20 MEQ PO 0700, (Reported) Entered as Reported by: GARCIA VIRAMONTES on 08/27/20 144 Last Action: Held Rivaroxaban (Xarelto Tablet) 20 Mg Tablet, 20 MG PO 193, (Reported) Entered as Reported by: GARCIA VIRAMONTES on 04/30/21 104 Last Action: Held Sertraline HCl (Sertraline HCl) 50 Mg Tablet, 50 MG PO 0, (Reported) Entered as Reported by: GARCIA VIRAMONTES on 04/30/21 104 Last Action: Continued Sertraline HCl (Sertraline HCl) 100 Mg Tablet, 100 MG PO 1899, (Reported) Entered as Reported by: GARCIA VIRAMONTES on 04/30/21 104 Last Action: Continued Tamsulosin HCl (Flomax) 0.4 Mg Cap, 0.4 MG PO 1929, (Reported) Entered as Reported by: GARCIA VIRAMONTES on 08/27/20 144 Last Action: Held Past Jscuhml-Ixrdbi-Wlmuun Hx Patient Social History Marrital Status: Living Status: lives at home with , has paid caregivers Employed/Student: retired Smoking Status: Former Smoker 2nd Hand Smoke Exposure: No Recent Hopitalizations: No Have you traveled recently?: No Alcohol Use?: No Pt feels they are or have been: No Immunizations Up To Date Date of Influenza Vaccine: Jan 30, 2021 Seasonal Allergies Seasonal Allergies: No Surgeries Yes Appendectomy, Ear Surgery (Cataract), Joint Replacement (Left hip, left knee), Vascular Surgery (Carotid endarterectomy, bilateral iliac stents) Respiratory No Currently Using CPAP: No Currently Using BIPAP: No Cardiovascular Yes Atrial Fibrillation (A flutter in 2020), High Cholesterol, Hypertension, Peripheral Vascular, Valvular Heart Disease Neurological Yes Dementia, Stroke Reproductive System Hx Reproductive Disorders: No Sexually Transmitted Disease: No HIV/AIDS: No Genitourinary Yes Benign Prostatic Hyperpl, Prostate Problems, Bladder Infection, Kidney Stones Gastrointestinal No Musculoskeletal Yes Arthritis, Gout Endocrine History of Endocrine Disorders: No HEENT History of HEENT Disorders: No Loss of Vision: Denies Hearing Impairment: Hard of Hearing Cancer No Psychosocial History of Psychiatric Problem: No Behavioral Health Disorders: Anxiety, Depression Integumentary History of Skin or Integumenta: No Blood Transfusions History of Blood Disorders: No Adverse Reaction to a Blood Tr: No Reviewed Nursing Assessment Reviewed/Agree w Nursing PMH: Yes Family Medical History Significant Family History: Heart Disease, Hypertension Review of Systems Constitutional: No chills, No diaphoresis, No fever; malaise, weakness EENTM: hearing loss; No hoarseness, No throat pain Respiratory: cough; No dyspnea on exertion, No short of breath Cardiovascular: No chest pain; Hx of Intervention; No palpitations Gastrointestinal: No abdominal pain, No loss of appetite, No nausea, No vomiting Genitourinary: incontinence Musculoskeletal: muscle weakness (pt does not walk much at home) Skin: no symptoms reported Psychiatric/Neurological: Anxiety, Depressed, Weakness All Other Systems Reviewed Negative Unless Noted: Yes Physical Exam Vital Signs Vital Signs - First Documented 01/01/22 01/01/22 01/01/22 01/03/22 18:22 20:20 22:23 00:00 Temp 38.3 Pulse 129 Resp 20 B/P (MAP) 90/63 (72) Pulse Ox 98 O2 Delivery Room Air O2 Flow Rate 3.00 FiO2 21 Capillary Refill : Less Than 3 Seconds Height, Weight, BMI Height: '" Weight: lbs. oz. kg; 25.37 BMI Method: General Appearance: No Apparent Distress, WD/WN HEENT: PERRL/EOMI, Pharynx Normal Neck: Full Range of Motion, Supple Respiratory: Chest Non Tender, No Accessory Muscle Use, No Respiratory Distress, Decreased Breath Sounds Cardiovascular: Regular Rate, Rhythm, Systolic Murmur Gastrointestinal: Normal Bowel Sounds, Non Tender, Soft Rectal: Deferred Back: Normal Inspection, No Vertebral Tenderness Extremity: Normal Capillary Refill, Normal Range of Motion, Non Tender, No Calf Tenderness, No Pedal Edema Neurologic/Psychiatric: Alert, Other (not oriented to place, time, but is oriented to person, flat affect) Skin: Normal Color, Warm/Dry Lymphatic: No Adenopathy Assessment/Plan Assessment and Plan Severe anemia COVID pneumonia Chronic anticoagulation Coronary artery disease Depression Vascular dementia Generalized weakness Hypotension Severe anemia - hold aspirin, plavix, xarelto - replace with transfusion - one unit in ER- another unit ordered now and will have repeat h and h - to be called to this provider to determine if he needs another uniti. COVID pneumonia - mild symptoms - wait on treatment at this time Chronic anticoagulation - holding anticoag. Coronary artery disease - pt currently hypotensive, hold home medications for now. Depression and Vascular dementia - resume home meds once reconciled. Generalized weakness - will need therapy once he is improved. Hypotension - monitor symptoms closely - pt as started on pressors last night by EICU. dvt prophylaxis with scd's gi prophylaxis with ppi therapy Admission Diagnosis Severe anemia COVID pneumonia Chronic anticoagulation Coronary artery disease Depression Vascular dementia Generalized weakness Hypotension Admission Status: Inpatient Order (span 2 midnights) Reason for Inpatient Admission: inpt admission for covid, anemia, will require at least 72+ hours in hospital for treatment, stabilization, investigation as to cause of anemia ODALYS SANCHEZ MD Jan 02, 2022 08:13
[2022-01-02] MEDS ORDERED: diphenhydrAMINE 50 MG/ML INJ (BENADRYL) IVP PRN (08:15)
[2022-01-02] MEDS ORDERED: FUROSEMIDE 40 MG/4 ML INJ (LASIX) IVP NR (08:30)
--- NOTE | 2022-01-02 09:54 | Tele-ICU Progress Note ---
Subjective Date Seen by a Provider: Jan 02, 2022 Time Seen by a Provider: 09:50 Subjective/Events-last exam (Tele-ICU Physician , consultation as per request of PCP Service provided via interactive audio and video telecommunications E-CARE system to a patient admitted to ICU bed in [facility]. Available chart/ vitals / labs / Images reviewed H&P is from ER notes and night ICU MD Patient's information available about PMH, Shx, Fhx allergy reviewed inEMR. ROS as per chart and RN report Available chart/ vitals / labs / Images reviewed Video assessment done using teleICU camera, rest of exam as per RN Discussed with RN Afebrile Respiratory - ra I/O = Drips: Pressors- jan Consultants: Hospital course: (01/01) 71yr M admitted for Sepsis (unknown source) and severe anemia HGB 4.9. Patient is seen today due to persistent and new A/P anemia: 01/01 4.9, down from 14.7 in July. on XARELTO - Occult blood negative, but could be false negative. Hemolysis unlikely with b leonardo 0.6. - retic pending - PPI dialy -s/p transfusion 3 u prbc 01/02 , 4th is going now - penging Hb after Shock - ? hemorrhagic , less likely ? septic , ? cardiogenic LEA - follow with volume expansion pRBC . monitor for VO ECHO 04/2021 EF 40 % , severe MR - COVID feels unwell but saturating 98% RA. No specific therapy at this time. Supportive care. - hyperglycemia - monitor , ISS - sepsis?: does meet SIRS criteria, COVID+. No current evidence of concomitant bacterial infection. Cultures sent. Hold off on abx for now. Lines : periph , (Central Line Necessity Reviewed) Abernathy: void OG: Nutrition: Analgesia: Anxiety/ delirium VTE Prophylaxis: scd Stress Ulcer Prophylaxis: PPI Plans in collaboration with bedside consultants and IM MDs. Discussed with RN to reach out if any questions or concerns A total of 32 minutes of critical care time was devoted to this patient today, required to treat and/or prevent further deterioration of critical care condition ( as above ) . I am remotely monitoring this patient from another state. I am unable to do the bedside exam, and history/physical and pertinent information is taken from other notes in the computer and bedside staff. I cannot take responsibility for the accuracy of this information. Sepsis Event Evaluation Height, Weight, BMI Height: '" Weight: lbs. oz. kg; 25.37 BMI Method: Focused Exam Lactate Level 01/01/22 20:34: Lactic Acid Level 4.25*H 01/01/22 22:35: Lactic Acid Level 3.73*H 01/02/22 03:40: Lactic Acid Level 1.84 Exam Exam Patient acknowledged, consented, and participated in this virtual visit which was conducted using real time audio/video Vital Signs Date Time Temp Pulse Resp B/P (MAP) Pulse Ox O2 Delivery O2 Flow Rate FiO2 01/02/22 09:00 85 17 102/66 (78) 92 Room Air 01/02/22 08:00 91 18 84/62 (69) 99 Room Air 01/02/22 07:01 36.2 81 16 71/57 97 Room Air 01/02/22 07:00 82 18 71/57 (62) 98 Room Air 01/02/22 07:00 81 01/02/22 06:00 86 19 78/51 (60) 98 Room Air 01/02/22 05:16 36.0 88 23 79/59 96 Room Air 01/02/22 05:01 37.2 89 21 84/60 98 Room Air 01/02/22 05:00 92 20 79/54 (62) 100 Room Air 01/02/22 04:00 100 Room Air 01/02/22 04:00 92 13 92/63 (73) 99 Room Air 01/02/22 04:00 37.2 83 23 84/60 (68) 97 Room Air 01/02/22 03:00 92 12 84/68 (73) 99 Room Air 01/02/22 02:00 98 18 86/61 (69) 100 Room Air 01/02/22 01:35 36.7 96 18 88/66 99 Room Air 01/02/22 01:00 98 13 88/66 (73) 100 Room Air 01/02/22 01:00 98 01/02/22 00:10 36.8 106 16 76/55 99 Room Air 01/02/22 00:00 104 10 83/62 (69) 98 Room Air 01/02/22 00:00 99 Room Air 01/01/22 23:55 36.8 103 16 88/57 99 Room Air 01/01/22 23:34 36.6 110 18 83/62 100 Room Air 01/01/22 23:08 114 77/57 01/01/22 23:00 108 18 88/57 (67) 100 Room Air 01/01/22 22:45 01/01/22 22:23 99 21 01/01/22 22:00 112 11 75/58 (64) 99 Room Air 01/01/22 21:27 36.8 114 16 77/57 100 Room Air 01/01/22 21:12 36.6 116 12 85/55 96 Room Air 01/01/22 21:00 112 18 74/55 (61) 100 Room Air 01/01/22 20:31 100 Room Air 01/01/22 20:20 36.6 118 23 88/59 (69) 100 Room Air 01/01/22 20:17 123 01/01/22 19:45 126 20 86/65 98 01/01/22 19:11 38.0 01/01/22 18:22 38.3 129 20 90/63 (72) 98 I & O 01/02/22 07:00 Intake Total 1830 ml Output Total 0 ml Balance 1830 ml Height & Weight Height: '" Weight: lbs. oz. kg; 25.37 BMI Method: General Appearance: No Apparent Distress, WD/WN, Other (Generally ill-appearing and pale) HEENT: PERRL/EOMI, Normal ENT Inspection, Other (Dry mouth) Neck: Normal Inspection; No JVD Respiratory: No Accessory Muscle Use, No Respiratory Distress, Crackles (Faint in the bases bilaterally) Cardiovascular: No Edema, No Murmur, Tachycardia (Regular), Other (Sinus rhythm on telemetry) Capillary Refill: Less Than 3 Seconds Extremity: Normal Inspection, No Pedal Edema Neurologic/Psychiatric: Alert, Normal Mood/Affect, Disoriented (Disoriented to age and month) Results Lab Laboratory Tests 01/01/22 18:30 01/02/22 03:40 Assessment/Plan Assessment/Plan 1 DIONI MAYERS MD Jan 02, 2022 09:54
[2022-01-02] MEDS: PHENYLEPHRINE DRIP 250 ML IV SCH ×2 (10:29→17:57)
[2022-01-02] MEDS ORDERED: ASPI-1238 PO (12:04)
[2022-01-02] MEDS ORDERED: CLOP75TA28 PO (12:04)
[2022-01-02 15:16] LABS: HEMOGLOBIN 8.8 g/dL (13.3-17.7); MEAN PLATELET VOLUME 10.9 fL (9.0-12.2); WHITE BLOOD COUNT 8.4 10^3/uL (4.3-11.0)
[2022-01-02 15:33] LABS: CALCIUM 8.3 MG/DL (8.5-10.1)
[2022-01-02 15:37] LABS: CREATININE SERUM 1.26 MG/DL (0.60-1.30)
[2022-01-02] MEDS: inSUlin ASPART (NovoLOG) 1 UNIT/0.01 ML (CHARGE PER UNIT) SC SCH ×2 (16:00→20:26)
[2022-01-03] MEDS: RT-ALBUTEROL HFA 8.5 GM INHALER IH PRN ×2 (01:00→08:25)
[2022-01-03 01:01] VITALS: BP 92/65
[2022-01-03 01:03] LABS: BASOPHILS # (AUTO) 0.1 10^3/uL (0.0-0.1); BASOPHILS % (AUTO) 0 % (0-10); EOSINOPHILS % (AUTO) 0 % (0-10); HEMATOCRIT 30 % (40-54); HEMOGLOBIN 9.2 g/dL (13.3-17.7); LYMPHOCYTES # (AUTO) 2.5 10^3/uL (1.0-4.0); LYMPHOCYTES % (AUTO) 15 % (12-44); MEAN CORPUSCULAR HEMOGLOBIN 24 pg (25-34); MEAN CORPUSCULAR HGB CONC 31 g/dL (32-36); MEAN CORPUSCULAR VOLUME 79 fL (80-99); MEAN PLATELET VOLUME 10.5 fL (9.0-12.2); MONOCYTES # (AUTO) 2.4 10^3/uL (0.0-1.0); MONOCYTES % (AUTO) 15 % (0-12); NEUTROPHILS # (AUTO) 10.9 10^3/uL (1.8-7.8); NEUTROPHILS % (AUTO) 68 % (42-75); PLATELET COUNT 211 10^3/uL (130-400); WHITE BLOOD COUNT 15.9 10^3/uL (4.3-11.0)
[2022-01-03 01:32] LABS: ALBUMIN 3.6 GM/DL (3.2-4.5)
[2022-01-03 01:34] LABS: CALCIUM 8.2 MG/DL (8.5-10.1)
[2022-01-03 01:35] LABS: TOTAL PROTEIN 6.2 GM/DL (6.4-8.2)
[2022-01-03 01:37] LABS: BILIRUBIN,TOTAL 0.5 MG/DL (0.1-1.0)
[2022-01-03 01:38] LABS: CREATININE SERUM 1.16 MG/DL (0.60-1.30); PHOSPHORUS 3.8 MG/DL (2.3-4.7)
[2022-01-03 01:41] LABS: MAGNESIUM 2.1 MG/DL (1.6-2.4)
[2022-01-03] MEDS: POTASSIUM CL 10MEQ/50ML IVPB 50 ML IV SCH (04:42)
[2022-01-03] MEDS: MAGNESIUM 1 GM/100 ML IVPB 100 ML IV SCH (04:42)
[2022-01-03] MEDS: KCL 20 MEQ TAB (K-DUR) PO SCH (04:42)
[2022-01-03] MEDS: inSUlin ASPART (NovoLOG) 1 UNIT/0.01 ML (CHARGE PER UNIT) SC SCH ×4 (06:21→21:46)
[2022-01-03] MEDS: CATHETER FLUSH 10 ML SYR IVP SCH ×3 (06:22→22:03)
--- NOTE | 2022-01-03 06:58 | Diagnostic Imaging Report ---
EXAMINATION: Chest radiograph, portable AP view. DATE: 01/03/2022 2:14 AM INDICATION: 71-year-old male, increasing shortness of breath. COMPARISON: January 01, 2022. FINDINGS: Heart size and mediastinal contours are unchanged. There is no identified pneumothorax. There is a left-sided PICC line overlying the mid to lower SVC. There is right mid and lower lung zone consolidation. There is multifocal consolidation in the left lung. There is blunting of the left lateral costophrenic angle. IMPRESSION: 1. Multifocal bilateral lung consolidation, left greater than right. This appears mildly increased since the comparison study. 2. Potential left pleural effusion. 3. Newly placed left-sided PICC line overlying the mid to lower SVC. Dictated by: Dictated on workstation # [id number]
[2022-01-03] MEDS: PANTOPRAZOLE 40 MG (PROTONIX) VIAL IV SCH (08:03)
--- NOTE | 2022-01-03 08:59 | Progress Note ---
Subjective Subjective Date Seen by Provider: Jan 03, 2022 Time Seen by Provider: 09:20 Derek is demented, is an overall poor historian and is short with his conversation. Pt reports that he is fatigued. pt displays a mild cough while I am in the room, when asked about this, he states he didn't realize he was coughing much. He states that he does not have an appetite, but when asked if he would eat ice cream his face lit up and he said yes, chocolate. Review of Systems General: No Chills; Fatigue, Malaise, Appetite (decreased) Pulmonary: No Dyspnea; Cough Cardiovascular: No: Chest Pain, Palpitations Gastrointestinal: No: Nausea, Abdominal Pain Neurological: Weakness All Other Systems Reviewed All Other Systems Reviewed: Yes Objective Exam Vital Signs Vital Signs Date Time Temp Pulse Resp B/P (MAP) Pulse Ox O2 Delivery O2 Flow Rate FiO2 01/03/22 08:25 100 Nasal Cannula 3.00 01/03/22 08:05 36.1 01/03/22 08:03 Nasal Cannula 3.00 01/03/22 08:00 98 24 109/69 (82) 94 NIV Bilevel 30.00 01/03/22 07:00 78 01/03/22 07:00 101 17 102/87 (92) 92 NIV Bilevel 30.00 01/03/22 06:00 92 23 99/74 (82) 100 NIV Bilevel 30.00 01/03/22 05:00 91 21 96/65 (75) 100 NIV Bilevel 30.00 01/03/22 04:00 91 Nasal Cannula 3.00 01/03/22 04:00 87 19 98/65 (76) 98 NIV Bilevel 30.00 01/03/22 03:00 86 20 97/75 (82) 100 NIV Bilevel 30.00 01/03/22 02:00 92 19 105/68 (80) 100 NIV Bilevel 30.00 01/03/22 01:06 NIV Bilevel 30.00 01/03/22 01:01 105 26 100 30.00 01/03/22 01:00 99 21 93/65 (74) 100 Room Air 01/03/22 01:00 108 01/03/22 00:00 93 26 110/63 (79) 96 Room Air 01/03/22 00:00 91 Nasal Cannula 3.00 01/02/22 23:10 37.6 01/02/22 23:00 96 26 113/95 (101) 90 Room Air 01/02/22 22:00 105 27 103/58 (73) 91 Room Air 01/02/22 21:00 97 26 100/57 (71) 90 Room Air 01/02/22 20:24 37.0 01/02/22 20:00 95 17 126/94 (105) 93 Room Air 01/02/22 20:00 91 Room Air 01/02/22 19:00 92 22 109/72 (84) 94 Room Air 01/02/22 19:00 92 01/02/22 18:20 83 19 110/71 (84) 93 Room Air 01/02/22 17:57 82 115/70 01/02/22 17:00 88 16 90/63 (72) 93 Room Air 01/02/22 16:03 36.7 01/02/22 16:00 82 18 93/58 (70) 94 Room Air 01/02/22 16:00 91 Room Air 01/02/22 15:00 81 30 100/70 (80) 91 Room Air 01/02/22 14:00 94 21 104/71 (82) 98 Room Air 01/02/22 13:44 98 Room Air 01/02/22 13:00 82 01/02/22 13:00 84 20 107/60 (76) 97 Room Air 01/02/22 12:59 37.2 84 17 95/70 97 Room Air 01/02/22 12:00 96 12 103/87 (92) 98 Room Air 01/02/22 12:00 99 Room Air 01/02/22 11:01 37.3 82 14 98/62 98 Room Air 01/02/22 11:00 81 17 98/62 (74) 98 Room Air 01/02/22 10:35 37.1 83 18 90/67 98 Room Air 01/02/22 10:29 90 77/57 01/02/22 10:00 89 27 96/62 (73) 97 Room Air 01/02/22 09:00 85 17 102/66 (78) 92 Room Air I & O 01/03/22 07:00 Intake Total 1275 ml Balance 1275 ml General Appearance: No Apparent Distress, WD/WN HEENT: PERRL/EOMI, Pharynx Normal Neck: Full Range of Motion, Supple Respiratory: Chest Non Tender, No Accessory Muscle Use, No Respiratory Distress, Crackles (in bases - poor effort of breathing), Decreased Breath Sounds Cardiovascular: Regular Rate, Rhythm, Systolic Murmur Gastrointestinal: Normal Bowel Sounds, Non Tender, Soft Rectal: Deferred Back: Normal Inspection, No Vertebral Tenderness Extremity: Normal Capillary Refill, Normal Range of Motion, Non Tender, No Calf Tenderness, No Pedal Edema Neurologic/Psychiatric: Alert, Other (not oriented to place, time, but is oriented to person, flat affect) Skin: Normal Color, Warm/Dry Lymphatic: No Adenopathy Results Lab Laboratory Tests 01/02/22 15:10: White Blood Count 8.4, Red Blood Count 3.60L, Hemoglobin 8.8#L, Hematocrit 28L, Mean Corpuscular Volume 77L, Mean Corpuscular Hemoglobin 24L, Mean Corpuscular Hemoglobin Concent 32, Red Cell Distribution Width 19.6H, Platelet Count 228, Mean Platelet Volume 10.9, Percent Immature Platelet Fraction 8.1H, Sodium Level 138, Potassium Level 4.0, Chloride Level 108H, Carbon Dioxide Level 22, Anion Gap 8, Blood Urea Nitrogen 25H, Creatinine 1.26, Estimat Glomerular Filtration Rate 61, BUN/Creatinine Ratio 20, Glucose Level 127H, Calcium Level 8.3L, Procalcitonin 0.10H 01/02/22 15:25: Glucometer 116H 01/02/22 20:05: Glucometer 123H 01/03/22 00:50: White Blood Count 15.9H, Red Blood Count 3.77L, Hemoglobin 9.2L, Hematocrit 30L, Mean Corpuscular Volume 79L, Mean Corpuscular Hemoglobin 24L, Mean Corpuscular Hemoglobin Concent 31L, Red Cell Distribution Width 20.1H, Platelet Count 211, Mean Platelet Volume 10.5, Sodium Level 137, Potassium Level 4.0, Chloride Level 108H, Carbon Dioxide Level 17L, Anion Gap 12, Blood Urea Nitrogen 23H, Cre atinine 1.16, Estimat Glomerular Filtration Rate 67, BUN/Creatinine Ratio 20, Glucose Level 187H, Calcium Level 8.2L, Immature Granulocyte % (Auto) 1, Neutrophils (%) (Auto) 68, Lymphocytes (%) (Auto) 15, Monocytes (%) (Auto) 15H, Eosinophils (%) (Auto) 0, Basophils (%) (Auto) 0, Neutrophils # (Auto) 10.9H, Lymphocytes # (Auto) 2.5, Monocytes # (Auto) 2.4H, Eosinophils # (Auto) 0.0, Basophils # (Auto) 0.1, Immature Granulocyte # (Auto) 0.1, D-Dimer 1.69H, Corrected Calcium 8.5, Phosphorus Level 3.8, Magnesium Level 2.1, Total Bilirubin 0.5, Aspartate Amino Transf (AST/SGOT) 83H, Alanine Aminotransferase (ALT/SGPT) 26, Alkaline Phosphatase 88, Troponin I 15.026*H, Total Protein 6.2L, Albumin 3.6 01/03/22 06:20: Glucometer 127H Microbiology 01/01/22 MRSA Screen - Final, Complete MRSA not isolated 01/01/22 Blood Culture - Preliminary, Resulted No growth 01/01/22 Urine Culture - Preliminary, Resulted Culture In Progress Assessment/Plan Assessment/Plan Admission Dx Severe anemia COVID pneumonia Chronic anticoagulation Coronary artery disease Depression Vascular dementia Generalized weakness Hypotension Assessment and Plan Severe anemia COVID pneumonia Sepsis with shock Leukocytosis Chronic anticoagulation Coronary artery disease Depression Vascular dementia Generalized weakness Hypotension Elevated troponin Severe anemia - hold aspirin, plavix, xarelto - replaced with transfusions - monitor h and h serially, transfuse as needed. Sepsis with shock due to due to covid and shock due to anemia - will continue with supportive care, support pressures, anemia treated with transfusions. - added antibiotics, steroids today due to elevation of white count and worsening chest xray - repeat xray tomorrow Elevated troponin - severely elevated troponin - due to shock and anemia - consult to retail loss prevention officer Cardiology - discussed with Dr. Arias, - pt is not a good candidate for any intervention at this time due to his illness COVID pneumonia - mild symptoms -start on antibiotics, - pt on mat protocol breathing treatments Chronic anticoagulation - holding anticoag. Coronary artery disease - pt currently hypotensive, hold home medications for now. Depression and Vascular dementia - resume home meds once reconciled. Generalized weakness - will need therapy once he is improved. Hypotension - monitor symptoms closely - pt as started on pressors last night by EICU. dvt prophylaxis with scd's gi prophylaxis with ppi therapy Admission Dx Severe anemia COVID pneumonia Chronic anticoagulation Coronary artery disease Depression Vascular dementia Generalized weakness Hypotension Clinical Quality Measures Admission Status Admission Dx Severe anemia COVID pneumonia Chronic anticoagulation Coronary artery disease Depression Vascular dementia Generalized weakness Hypotension ODALYS CARDOZA MD Jan 03, 2022 08:59
[2022-01-03] MEDS ORDERED: PHARMACY TO DOSE IV SCH (09:15)
[2022-01-03 09:26] VITALS: BP 92/62
--- NOTE | 2022-01-03 09:48 | Consultation-Cardiology ---
HPI-Cardiology Cardiology Consultation: Date of Consultation 01/03/22 Date of Admission 01/01/22 Attending Physician Deb Sanchez MD Admitting Physician Admitting Physician: Deb Sanchez MD Attending Physician: Deb Sanchez MD Consulting Physician RADHA ZUNIGA JR, MD HPI: Time Seen by a Provider: 09:47 Chief Complaint: REASON FOR CONSULTATION: History of coronary artery disease now with elevated troponin in the setting of COVID infection and severe anemia. I had the pleasure of seeing Derek in the intensive care unit at [facility] in [place], [place] today. He has been following with one of my partners, Dr. Leyva, for his extensive past cardiac history that includes coronary artery disease, mild cardiomyopathy, severe mitral regurgitation, chronic combined type heart failure, peripheral arterial disease with previous bilateral iliac stents in 2021, pulmonary hypertension, previous stroke with carotid stenosis and a previous left internal carotid artery stent, typical atrial flutter, hypertension, hyperlipidemia and severe dementia among other issues. He presented to the hospital 2 days ago via ambulance his family had reported a 1-2-day history of generalized malaise and not feeling well. He was apparently more confused. During his evaluation in the emergency room he was found to have COVID-19 infection as well as severe anemia and he was admitted to the intensive care unit. He also has had some intermittent hypovolemic shock. He received several blood transfusions. Then this morning a troponin level was drawn that was found to be markedly elevated and a cardiology consultation was requested. I saw the patient from the doorway but he cannot give any history due to his se ricki dementia. I did speak with his primary care provider and also reviewed the medical record to obtain history. Certain portions of this document may have been dictated utilizing voice recognition technology. Inherent to this technology, typographical and grammatical errors may exist. As much as I am diligent to identify and correct these mistakes, some errors may remain in the document. Review of Systems-Cardiology Review of Systems Other comments Not obtainable due to the patient's severe dementia. All Other Systems Reviewed Negative Unless Noted: Yes [id number] Hx Patient Social History Marrital Status: Living Status: lives at home with , has paid caregivers Employed/Student: retired Smoking Status: Former Smoker 2nd Hand Smoke Exposure: No Have you traveled recently?: No Alcohol Use?: No Pt feels they are or have been: No Immunizations Up To Date Date of Influenza Vaccine: Jan 30, 2021 Past Medical History PMH As described under Assessment. Family Medical History Family Medical History: He does not report any family h/o CAD or CVA. Allergies and Home Medications Allergies Coded Allergies: Penicillins (Unverified Allergy, Intermediate, RASH, 02/08/06) codeine (Unverified Allergy, Intermediate, RASH, 02/08/06) Patient Home Medication List Home Medication List Reviewed: Yes Acetaminophen (Tylenol Extra Strength) 500 Mg Tablet, 1,000 MG PO BID, (Reported) Entered as Reported by: GARCIA VIRAMONTES on 08/27/20 1442 Last Action: Reviewed Allopurinol (Allopurinol) 100 Mg Tablet, 100 MG PO 1600, (Reported) Entered as Reported by: MARICRUZ RUSSELL on 03/06/21 124 Last Action: Continued Amitriptyline HCl (Amitriptyline HCl) 10 Mg Tablet, 10 MG PO 1930, (Reported) Entered as Reported by: JACKELYN NASCIMENTO on 07/09/21832 Last Action: Held Aspirin (Aspirin EC) 81 Mg Tablet.dr, 81 MG PO 0700, (Reported) Entered as Reported by: GARCIA VIRAMONTES on 01/02/22 120 Last Action: Held Atorvastatin Calcium (Atorvastatin Calcium) 80 Mg Tablet, 80 MG PO 1900, (Reported) Entered as Reported by: MRAICRUZ RUSSELL on 03/06/21 124 Last Action: Continued Carvedilol (Carvedilol) 3.125 Mg Tablet, 3.125 MG PO 0700,1900, (Reported) Entered as Reported by: MARICRUZ RUSSELL on 03/06/21 124 Last Action: Held Clopidogrel Bisulfate (Clopidogrel) 75 Mg Tablet, 75 MG PO 0700, (Reported) Entered as Reported by: GARCIA VIRAMONTES on 01/02/22 120 Last Action: Held Finasteride (Finasteride) 5 Mg Tablet, 5 MG PO 0930, (Reported) Entered as Reported by: GARCIA VIRAMONTES on 08/27/20 1441 Last Action: Continued Losartan Potassium (Losartan Potassium) 25 Mg Tablet, 25 MG PO 1900, (Reported) Entered as Reported by: JACKELYN NASCIMENTO on 5/4/22 0833 Last Action: Held Potassium Chloride (Klor-Con M20) 20 Meq Tab.er.prt, 20 MEQ PO 0700, (Reported) Entered as Reported by: GARCIA VIRAMONTES on 08/27/201440 Last Action: Held Rivaroxaban (Xarelto Tablet) 20 Mg Tablet, 20 MG PO 1930, (Reported) Entered as Reported by: GARCIA VIRAMONTES on 04/30/211041 Last Action: Held Sertraline HCl (Sertraline HCl) 50 Mg Tablet, 50 MG PO 1900, (Reported) Entered as Reported by: GARCIA VIRAMONTES on 04/30/211041 Last Action: Continued Sertraline HCl (Sertraline HCl) 100 Mg Tablet, 100 MG PO 1899, (Reported) Entered as Reported by: GARCIA VIRAMONTES on 04/30/211041 Last Action: Continued Tamsulosin HCl (Flomax) 0.4 Mg Cap, 0.4 MG PO 1929, (Reported) Entered as Reported by: GARCIA VIRAMONTES on 08/27/201440 Last Action: Held Exam Vital Signs Vital Signs Date Time Temp Pulse Resp B/P (MAP) Pulse Ox O2 Delivery O2 Flow Rate FiO2 01/03/22 09:00 76 21 92/62 (72) 95 Nasal Cannula 3.00 01/03/22 08:05 36.1 01/01/22 22:23 21 Physical Exam Due to the patient's COVID status, I spoke with the patient from the doorway. General: The patient is breathing spontaneously. HENT: Normocephalic. Atraumatic. Skin: There is no pallor. Neurologic: Confused. Cranial nerves III through XII grossly intact. Moving all 4 extremities. Psychiatric: Appears cooperative but confused. Labs Laboratory Tests Test 01/02/22 15:10 01/02/22 15:25 01/02/22 20:05 01/03/22 00:50 Range/Units White Blood Count 8.4 15.9 H 4.3-11.0 10^3/uL Red Blood Count 3.60 L 3.77 L 4.30-5.52 10^6/uL Hemoglobin 8.8 #L 9.2 L 13.3-17.7 g/dL Hematocrit 28 L 30 L 40-54 % Mean Corpuscular Volume 77 L 79 L 80-99 fL Mean Corpuscular Hemoglobin 24 L 24 L 25-34 pg Mean Corpuscular Hemoglobin Concent 32 31 L 32-36 g/dL Red Cell Distribution Width 19.6 H 20.1 H 10.0-14.5 % Platelet Count 228 211 130-400 10^3/uL Mean Platelet Volume 10.9 10.5 9.0-12.2 fL Percent Immature Platelet Fraction 8.1 H 0.0-7.6 % Sodium Level 138 137 135-145 MMOL/L Potassium Level 4.0 4.0 3.6-5.0 MMOL/L Chloride Level 108 H 108 H 98-107 MMOL/L Carbon Dioxide Level 22 17 L 21-32 MMOL/L Anion Gap 8 12 5-14 MMOL/L Blood Urea Nitrogen 25 H 23 H 7-18 MG/DL Creatinine 1.26 1.16 0.60-1.30 MG/DL Estimat Glomerular Filtration Rate 61 67 BUN/Creatinine Ratio 20 20 Glucose Level 127 H 187 H 70-105 MG/DL Calcium Level 8.3 L 8.2 L 8.5-10.1 MG/DL Procalcitonin 0.10 H <0.10 NG/ML Glucometer 116 H 123 H 70-110 MG/DL Immature Granulocyte % (Auto) 1 % Neutrophils (%) (Auto) 68 42-75 % Lymphocytes (%) (Auto) 15 12-44 % Monocytes (%) (Auto) 15 H 0-12 % Eosinophils (%) (Auto) 0 0-10 % Basophils (%) (Auto) 0 0-10 % Neutrophils # (Auto) 10.9 H 1.8-7.8 10^3/uL Lymphocytes # (Auto) 2.5 1.0-4.0 10^3/uL Monocytes # (Auto) 2.4 H 0.0-1.0 10^3/uL Eosinophils # (Auto) 0.0 0.0-0.3 10^3/uL Basophils # (Auto) 0.1 0.0-0.1 10^3/uL Immature Granulocyte # (Auto) 0.1 0.0-0.1 10^3/uL D-Dimer 1.69 H 0.00-0.49 UG/ML Corrected Calcium 8.5 8.5-10.1 MG/DL Phosphorus Level 3.8 2.3-4.7 MG/DL Magnesium Level 2.1 1.6-2.4 MG/DL Total Bilirubin 0.5 0.1-1.0 MG/DL Aspartate Amino Transf (AST/SGOT) 83 H 5-34 U/L Alanine Aminotransferase (ALT/SGPT) 26 0-55 U/L Alkaline Phosphatase 88 40-136 U/L Troponin I 15.026 *H <0.028 NG/ML Total Protein 6.2 L 6.4-8.2 GM/DL Albumin 3.6 3.2-4.5 GM/DL Test 01/03/22 06:20 Range/Units Glucometer 127 H 70-110 MG/DL Radiology TRANSESOPHAGEAL ECHOCARDIOGRAM (04/30/2021): 1. Normal left ventricular chamber size with mild left ventricular systolic dysfunction with an estimated ejection fraction of 40%. 2. Mild right ventricular systolic dysfunction. 3. Left atrial dilatation. 4. Severe mitral regurgitation. TRANSTHORACIC ECHOCARDIOGRAM (04/15/2021): 1. Normal left ventricular chamber size with mild concentric hypertrophy. Mild left ventricular systolic dysfunction with an estimated ejection fraction of 45- 50% with global hypokinesis. 2. Doppler parameters are consistent with grade 2 diastolic dysfunction. 3. The left atrial diameter is increased but the volume index is normal. 4. Severe mitral regurgitation. 5. The estimated pulmonary artery systolic pressure is 55 mmHg. ECG Impression ECG EKG : Comment Electrocardiogram from this morning shows sinus rhythm with left atrial abnormality, low voltage in the limb leads and anterolateral ST-T wave changes, consider ischemia. Diagnosis/Problems Diagnosis/Problems (1) Troponin level elevated Assessment & Plan: He has a markedly elevated troponin level with anterolateral ischemic changes on his electrocardiogram. I suspect he has suffered a non-ST elevation myocardial infarction. Unfortunately, due to his severe anemia of unclear etiology, he is not a candidate for any antiplatelet or anticoagulant medications at this time. He did have some brief episodes of probable hypovolemic shock and therefore, is also not a candidate for beta-kp. He is on high-dose statin medication. I will obtain a follow-up troponin at this time. Given his advanced dementia and multiple comorbid conditions, he is not a good candidate for an invasive cardiac evaluation at this time. (2) Acute heart failure with reduced ejection fraction and diastolic dysfunction Assessment & Plan: He has received blood transfusions and volume resuscitation. His chest x-ray appears to be getting worse. He remains intermittently hypotensive. We may want to consider a furosemide infusion. I will discuss this with the primary provider and nursing. (3) Mitral valve regurgitation Assessment & Plan: He has a history of severe mitral regurgitation. Dr. Leyva had been considering referring him for a MitraClip procedure. (4) Cardiomyopathy Assessment & Plan: He has mild left ventricular systolic dysfunction on both his transthoracic and transesophageal echocardiogram earlier this year as outlined above. I suspect this may be ischemic cardiomyopathy. He was on carvedilol at home which is currently on hold due to intermittent shock. We can attempt to restart guideline directed medical therapy when his blood pressure will allow. (5) Typical atrial flutter Assessment & Plan: He has a history of atrial flutter but has not been on antiarrhythmic drug. He has been on rivaroxaban for stroke prophylaxis. This is on hold due to the severe anemia and we will consider resuming once hemoglobin is stable. As a matter fact, he has been on triple therapy. Given his age and multiple comorbid conditions, if we do decide to resume oral anticoagulation, I would either treat him with aspirin or clopidogrel as an antiplatelet agent but certainly not both. (6) Peripheral arterial disease Assessment & Plan: He has previous bilateral iliac stents earlier this year. As above, we will consider resuming either aspirin or clopidogrel once his clinical status and hemoglobin stabilized. (7) History of cerebrovascular accident with residual deficit Assessment & Plan: Consider resuming aspirin or clopidogrel when hemoglobin and clinical status are more stabilized. Unclear whether or not his previous stroke had anything to do with the atrial flutter. We will also need to decide whether or not to resume oral anticoagulation. (8) Coronary artery disease with unstable angina pectoris Assessment & Plan: As above, he is probably having a type I non-ST elevation myocardial infarction. Unfortunately, for the reasons outlined above, he is not a candidate for any of the usual guideline directed medical therapy at this point in time nor is he a good candidate for an invasive cardiac evaluation at this time. (9) Pulmonary hypertension Assessment & Plan: He has moderate to severe pulmonary hypertension as noted on his transthoracic echocardiogram in April 2021. I suspect this is mul tifactorial due to the mild cardiomyopathy and severe mitral regurgitation. (10) Primary hypertension Assessment & Plan: He was on carvedilol at home which is on hold due to hypotension. (11) Mixed hyperlipidemia Assessment & Plan: Continue intensive dose statin medication. (12) Acute kidney injury Assessment & Plan: His baseline renal function is actually quite good. I suspect he had some acute kidney injury due to the severe anemia and intermittent hypotension. His renal function has started to improve. (13) Severe anemia Status: Acute Assessment & Plan: He has received several blood transfusions. I would be concerned that he may have gastrointestinal hemorrhage given that he was on dual pathway triple antiplatelet/anticoagulant medication at home. These are now on hold. At some point, we may want to consider a general surgery consultation for consideration of endoscopy. It would probably be best to wait until he is more clinically stable before considering the sort of procedure. (14) COVID-19 Status: Acute Assessment & Plan: This is being managed by the eICU and primary provider. Despite all of his other problems, he has been maintaining reasonably good oxygenation and has not required intubation at this time. RADHA ZUNIGA JR, MD Jan 03, 2022 09:48
--- NOTE | 2022-01-03 09:52 | Tele-ICU Progress Note ---
Subjective Date Seen by a Provider: Jan 03, 2022 Time Seen by a Provider: 09:51 Subjective/Events-last exam (Tele-ICU Physician , Progress Note ) Service provided via interactive audio and video telecommunications E-CARE system to a patient admitted to ICU bed in [facility]. Available chart/ vitals / labs / Images reviewed Video assessment done using teleICU camera, rest of exam as per RN Discussed with RN Afebrile Respiratory - ra I/O = not recorded Drips: Pressors- jan STOPPED 01/03 Consultants: Hospital course: (01/01) 71yr M admitted for Sepsis (unknown source) and severe anemia HGB 4.9. Patient is seen today due to persistent anemia and new resp failure A/P anemia: 01/01 4.9, down from 14.7 in July. on XARELTO - Occult blood negative, but could be false negative. Hemolysis unlikely with bili 0.6. - PPI dialy -s/p transfusion 4 u prbc 01/02 , hb stable after Acute resp failure - PNA vs pulm edema / vs VO - was started on steroids and Shock - ? hemorrhagic , less likely ? septic , ? cardiogenic - RESOLVED - OFF pressors LEA - follow with volume expansion pRBC . monitor for VO - IMPROVED Elevated trop with chest pain last night -plams as per cards consulted -ECHO 04/2021 EF 40 % , severe MR - as per cards - COVID feels unwell but saturating 98% RA.ON ADMISSION -STARTED ON DECADRON WITH WORSENING RESP STATUS 01/03 - hyperglycemia - monitor , ISS UTI vs PNA - ABX STARTED 01/03 , CX PENDING Lines : periph , (Central Line Necessity Reviewed) Abernathy: void OG: Nutrition: po starting Analgesia: Anxiety/ delirium VTE Prophylaxis: scd Stress Ulcer Prophylaxis: PPI Plans in collaboration with bedside consultants and IM MDs. discussed with dr Sanchez Discussed with RN to reach out if any questions or concerns A total of 32 minutes of critical care time was devoted to this patient today, required to treat and/or prevent further deterioration of critical care condition ( as above ) . I am remotely monitoring this patient from another state. I am unable to do the bedside exam, and history/physical and pertinent information is taken from other notes in the computer and bedside staff. I cannot take responsibility for the accuracy of this information. Sepsis Event Evaluation Height, Weight, BMI Height: '" Weight: lbs. oz. kg; 25.17 BMI Method: Focused Exam Lactate Level 01/01/22 20:34: Lactic Acid Level 4.25*H 01/01/22 22:35: Lactic Acid Level 3.73*H 01/02/22 03:40: Lactic Acid Level 1.84 Exam Exam Patient acknowledged, consented, and participated in this virtual visit which was conducted using real time audio/video Vital Signs Date Time Temp Pulse Resp B/P (MAP) Pulse Ox O2 Delivery O2 Flow Rate FiO2 01/03/22 09:26 36.1 76 95 01/03/22 09:00 76 21 92/62 (72) 95 Nasal Cannula 3.00 01/03/22 08:25 100 Nasal Cannula 3.00 01/03/22 08:05 36.1 01/03/22 08:03 Nasal Cannula 3.00 01/03/22 08:00 98 24 109/69 (82) 94 NIV Bilevel 30.00 01/03/22 08:00 100 Nasal Cannula 3.00 01/03/22 07:00 78 01/03/22 07:00 101 17 102/87 (92) 92 NIV Bilevel 30.00 01/03/22 06:00 92 23 99/74 (82) 100 NIV Bilevel 30.00 01/03/22 05:00 91 21 96/65 (75) 100 NIV Bilevel 30.00 01/03/22 04:00 91 Nasal Cannula 3.00 01/03/22 04:00 87 19 98/65 (76) 98 NIV Bilevel 30.00 01/03/22 03:00 86 20 97/75 (82) 100 NIV Bilevel 30.00 01/03/22 02:00 92 19 105/68 (80) 100 NIV Bilevel 30.00 01/03/22 01:06 NIV Bilevel 30.00 01/03/22 01:01 105 26 100 30.00 01/03/22 01:00 99 21 93/65 (74) 100 Room Air 01/03/22 01:00 108 01/03/22 00:00 93 26 110/63 (79) 96 Room Air 01/03/22 00:00 91 Nasal Cannula 3.00 01/02/22 23:10 37.6 01/02/22 23:00 96 26 113/95 (101) 90 Room Air 01/02/22 22:00 105 27 103/58 (73) 91 Room Air 01/02/22 21:00 97 26 100/57 (71) 90 Room Air 01/02/22 20:24 37.0 01/02/22 20:00 95 17 126/94 (105) 93 Room Air 01/02/22 20:00 91 Room Air 01/02/22 19:00 92 22 109/72 (84) 94 Room Air 01/02/22 19:00 92 01/02/22 18:20 83 19 110/71 (84) 93 Room Air 01/02/22 17:57 82 115/70 01/02/22 17:00 88 16 90/63 (72) 93 Room Air 01/02/22 16:03 36.7 01/02/22 16:00 82 18 93/58 (70) 94 Room Air 01/02/22 16:00 91 Room Air 01/02/22 15:00 81 30 100/70 (80) 91 Room Air 01/02/22 14:00 94 21 104/71 (82) 98 Room Air 01/02/22 13:44 98 Room Air 01/02/22 13:00 82 01/02/22 13:00 84 20 107/60 (76) 97 Room Air 01/02/22 12:59 37.2 84 17 95/70 97 Room Air 01/02/22 12:00 96 12 103/87 (92) 98 Room Air 01/02/22 12:00 99 Room Air 01/02/22 11:01 37.3 82 14 98/62 98 Room Air 01/02/22 11:00 81 17 98/62 (74) 98 Room Air 01/02/22 10:35 37.1 83 18 90/67 98 Room Air 01/02/22 10:29 90 77/57 01/02/22 10:00 89 27 96/62 (73) 97 Room Air I & O 01/03/22 07:00 Intake Total 1275 ml Balance 1275 ml Height & Weight Height: '" Weight: lbs. oz. kg; 25.17 BMI Method: General Appearance: No Apparent Distress, WD/WN HEENT: PERRL/EOMI, Pharynx Normal Neck: Full Range of Motion, Supple Respiratory: Chest Non Tender, No Accessory Muscle Use, No Respiratory Distress , Decreased Breath Sounds Cardiovascular: Regular Rate, Rhythm, Systolic Murmur Capillary Refill: Less Than 3 Seconds Extremity: Normal Capillary Refill, Normal Range of Motion, Non Tender, No Calf Tenderness, No Pedal Edema Neurologic/Psychiatric: Alert, Other (not oriented to place, time, but is oriented to person, flat affect) Skin: Normal Color, Warm/Dry Lymphatic: No Adenopathy Results Lab Laboratory Tests 01/01/22 18:30 01/02/22 03:40 01/02/22 15:10 01/03/22 00:50 Assessment/Plan Assessment/Plan 1 DIONI MAYERS MD Jan 03, 2022 09:52
[2022-01-03] MEDS: FINASTERIDE (PROSCAR) 5 MG TAB PO SCH (09:56)
[2022-01-03] MEDS: dexAMETHasone 6 MG TAB (DECADRON) PO SCH (09:56)
[2022-01-03] MEDS ORDERED: VANCOMYCIN 1,750 MG/NS 500 ML IVPB IV NR ×2 (10:00)
[2022-01-03] MEDS ORDERED: LIDOCAINE UROJET 2% GEL 10 ML PKG ONE (10:31)
[2022-01-03] MEDS: FUROSEMIDE INJECTION 120 MG in D5W 100 ML IVPB 100 ML IV SCH (11:13)
[2022-01-03] MEDS ORDERED: DexMEDEtomidine 250 ML DRIP 250 ML IV SCH (12:45)
[2022-01-03] MEDS ORDERED: morphine INJ 4 MG/ML 1 ML (VIAL/SYRINGE) IVP STA (12:49)
[2022-01-03] MEDS ORDERED: morphine INJ 4 MG/ML 1 ML (VIAL/SYRINGE) ONE (12:49)
[2022-01-03] MEDS: PHENYLEPHRINE DRIP 250 ML IV SCH (13:35)
[2022-01-03] MEDS ORDERED: RT-ALBUTEROL HFA 8.5 GM INHALER IH SCH (15:00)
[2022-01-03] MEDS: RT-ALBUTEROL HFA 8.5 GM INHALER IH SCH ×3 (15:10→21:52)
[2022-01-03] MEDS: ALLOPURINOL 100 MG (ZYLOPRIM) TAB PO SCH (15:56)
[2022-01-03] MEDS: ACETAMINOPHEN 500 MG TAB (TYLENOL) PO PRN ×2 (15:57→21:34)
[2022-01-03] MEDS: SERTRALINE 50 MG (ZOLOFT) TABLET PO SCH (19:44)
[2022-01-03] MEDS: SERTRALINE 100 MG (ZOLOFT) TAB PO SCH (19:44)
[2022-01-03] MEDS: CEFEPIME INJECTION 2,000 MG in NS (IVPB) 50 ML IV SCH (21:34)
[2022-01-03] MEDS: VANCOMYCIN 1250 MG/NS 250 ML IVPB IV SCH ×2 (22:05)
[2022-01-04] MEDS: PHENYLEPHRINE DRIP 250 ML IV SCH ×2 (00:13→17:26)
[2022-01-04] MEDS: RT-ALBUTEROL HFA 8.5 GM INHALER IH SCH ×6 (02:45→22:07)
[2022-01-04 05:21] LABS: BASOPHILS % (AUTO) 0 % (0-10); EOSINOPHILS % (AUTO) 0 % (0-10); HEMOGLOBIN 8.5 g/dL (13.3-17.7); MONOCYTES % (AUTO) 10 % (0-12)
[2022-01-04 05:23] LABS: HEMATOCRIT 28 % (40-54); LYMPHOCYTES # (AUTO) 0.9 10^3/uL (1.0-4.0); LYMPHOCYTES % (AUTO) 9 % (12-44); MEAN CORPUSCULAR HEMOGLOBIN 24 pg (25-34); MEAN CORPUSCULAR HGB CONC 31 g/dL (32-36); MEAN CORPUSCULAR VOLUME 78 fL (80-99); NEUTROPHILS # (AUTO) 7.9 10^3/uL (1.8-7.8); NEUTROPHILS % (AUTO) 80 % (42-75); PLATELET COUNT 188 10^3/uL (130-400); WHITE BLOOD COUNT 9.8 10^3/uL (4.3-11.0)
[2022-01-04 05:46] LABS: ALBUMIN 3.4 GM/DL (3.2-4.5); BILIRUBIN,TOTAL 0.5 MG/DL (0.1-1.0); CALCIUM 8.3 MG/DL (8.5-10.1); CREATININE SERUM 0.97 MG/DL (0.60-1.30); MAGNESIUM 1.6 MG/DL (1.6-2.4); PHOSPHORUS 2.7 MG/DL (2.3-4.7); POTASSIUM 3.4 MMOL/L (3.6-5.0)
[2022-01-04] MEDS: POTASSIUM CL 10MEQ/50ML IVPB 50 ML IV SCH (06:00)
[2022-01-04] MEDS: MAGNESIUM 1 GM/100 ML IVPB 100 ML IV SCH ×3 (06:00→08:01)
[2022-01-04] MEDS ORDERED: POTASSIUM CL 10MEQ/50ML IVPB 50 ML IV SCH (06:00)
[2022-01-04] MEDS: inSUlin ASPART (NovoLOG) 1 UNIT/0.01 ML (CHARGE PER UNIT) SC SCH ×4 (06:00→21:58)
[2022-01-04] MEDS: KCL 20 MEQ TAB (K-DUR) PO SCH (06:00)
[2022-01-04] MEDS: CATHETER FLUSH 10 ML SYR IVP SCH ×3 (06:03→22:00)
[2022-01-04] MEDS ORDERED: KCL 20 MEQ TAB (K-DUR) PO ONE (08:00)
[2022-01-04] MEDS: CEFEPIME INJECTION 2,000 MG in NS (IVPB) 50 ML IV SCH ×2 (08:02→20:22)
[2022-01-04] MEDS: PANTOPRAZOLE 40 MG (PROTONIX) VIAL IV SCH (08:02)
[2022-01-04] MEDS: dexAMETHasone 6 MG TAB (DECADRON) PO SCH (08:02)
[2022-01-04] MEDS: FINASTERIDE (PROSCAR) 5 MG TAB PO SCH (08:34)
[2022-01-04] MEDS: VANCOMYCIN 1250 MG/NS 250 ML IVPB IV SCH ×4 (09:22→22:00)
--- NOTE | 2022-01-04 09:22 | Diagnostic Imaging Report ---
INDICATION: Covid pneumonia. TECHNIQUE: Single view chest 8:34 AM. CORRELATION STUDY: 01/03/2022 FINDINGS: Heart size enlarged with mediastinum normal. Vasculature overall within normal limits. Multifocal pulmonary opacities are again demonstrated large number of which appear improved. However, there is more focal consolidation right lung base medially. IMPRESSION: 1. Bilateral pulmonary infiltrate-like opacities do persist but overall appearing improved from prior. 2. More focal consolidation about the right lung base medially may reflect more lobar pneumonia. Continued follow-up imaging is recommended. Dictated by: Dictated on workstation # [id number]
[2022-01-04] MEDS: FUROSEMIDE INJECTION 120 MG in D5W 100 ML IVPB 100 ML IV SCH (09:27)
--- NOTE | 2022-01-04 09:57 | Progress Note ---
Subjective Subjective Date Seen by Provider: Jan 04, 2022 Time Seen by Provider: 10:00 Derek is demented, is an overall poor historian but this morning he is more conversational - he reports feeling better today - he is aware he is in the hospital, not sure of the name of this provider - identified me as "Dr. Leyva" He denies chest pain, does have some cough and shortness of breath. Review of Systems General: No Chills; Fatigue, Malaise, Appetite (decreased) Pulmonary: No Dyspnea; Cough Cardiovascular: No: Chest Pain, Palpitations Gastrointestinal: No: Nausea, Abdominal Pain Neurological: Weakness All Other Systems Reviewed All Other Systems Reviewed: Yes Objective Exam Vital Signs Vital Signs Date Time Temp Pulse Resp B/P (MAP) Pulse Ox O2 Delivery O2 Flow Rate FiO2 01/04/22 09:00 96 15 124/76 (92) 96 Nasal Cannula 1.00 01/04/22 07:59 36.4 90 26 120/78 (92) 97 Nasal Cannula 1.00 01/04/22 07:48 96 Nasal Cannula 1.00 01/04/22 07:15 98 Nasal Cannula 3.00 01/04/22 07:00 91 18 129/78 (95) 95 Nasal Cannula 1.00 01/04/22 07:00 90 01/04/22 06:00 60 22 111/59 (76) 96 Nasal Cannula 3.00 01/04/22 05:00 81 16 113/82 (92) 97 Nasal Cannula 3.00 01/04/22 04:00 61 28 102/51 (68) 97 Nasal Cannula 3.00 01/04/22 04:00 94 Nasal Cannula 3.00 01/04/22 03:32 95 Nasal Cannula 3.00 01/04/22 03:15 64 95/47 01/04/22 03:00 68 25 94/50 (65) 95 Nasal Cannula 3.00 01/04/22 02:00 85 25 115/65 (82) 96 Nasal Cannula 3.00 01/04/22 01:00 78 26 89/47 (61) 92 Nasal Cannula 3.00 01/04/22 01:00 84 01/04/22 00:13 80 80/57 01/04/22 00:00 92 Nasal Cannula 3.00 01/04/22 00:00 77 17 80/57 (65) 92 Nasal Cannula 3.00 01/03/22 23:00 86 28 84/46 (59) 92 Nasal Cannula 3.00 01/03/22 22:00 93 22 99/48 (65) 92 Nasal Cannula 3.00 01/03/22 21:52 94 Nasal Cannula 3.00 01/03/22 21:00 93 19 104/64 (77) 93 Nasal Cannula 3.00 01/03/22 20:00 93 Nasal Cannula 3.00 01/03/22 20:00 87 25 97/57 (70) 92 Nasal Cannula 3.00 01/03/22 19:50 36.8 01/03/22 19:00 96 01/03/22 19:00 84 17 103/75 (84) 93 Nasal Cannula 3.00 01/03/22 18:32 92 Nasal Cannula 3.00 01/03/22 18:00 87 20 117/81 (93) 97 Nasal Cannula 3.00 01/03/22 17:00 81 17 78/47 (57) 95 Nasal Cannula 3.00 01/03/22 16:30 Nasal Cannula 3.00 01/03/22 16:00 89 14 84/62 (69) 96 NIV Bilevel 30.00 01/03/22 16:00 94 Nasal Cannula 3.00 01/03/22 15:54 36.4 01/03/22 15:22 96 Nasal Cannula 3.00 01/03/22 15:00 94 22 117/86 (96) 98 NIV Bilevel 30.00 01/03/22 14:00 90 21 107/67 (80) 97 NIV Bilevel 30.00 01/03/22 12:54 113 01/03/22 12:51 36.1 105 24 140/93 (109) 99 NIV Bilevel 30.00 01/03/22 12:00 84 21 119/82 (94) 98 Nasal Cannula 3.00 01/03/22 12:00 37.1 01/03/22 12:00 100 Nasal Cannula 3.00 01/03/22 11:00 93 20 104/55 (71) 99 Nasal Cannula 3.00 01/03/22 10:00 89 12 96/62 (73) 97 Nasal Cannula 3.00 I & O 01/04/22 07:00 Intake Total 1972.5 ml Output Total 2500 ml Balance -527.5 ml General Appearance: No Apparent Distress, WD/WN HEENT: PERRL/EOMI, Pharynx Normal Neck: Full Range of Motion, Supple Respiratory: Chest Non Tender, No Accessory Muscle Use, No Respiratory Distress, Crackles (in bases - poor effort of breathing), Decreased Breath Sounds Cardiovascular: Regular Rate, Rhythm, Systolic Murmur Gastrointestinal: Normal Bowel Sounds, Non Tender, Soft Rectal: Deferred Back: Normal Inspection, No Vertebral Tenderness Extremity: Normal Capillary Refill, Normal Range of Motion, Non Tender, No Calf Tenderness, No Pedal Edema Neurologic/Psychiatric: Alert, Other (oriented to person, place not time) Skin: Normal Color, Warm/Dry Lymphatic: No Adenopathy Results Lab Laboratory Tests 01/03/22 11:10: Troponin I 8.882*H 01/03/22 15:52: Glucometer 196H 01/03/22 17:50: Glucometer 173H 01/03/22 21:33: Glucometer 211H 01/04/22 04:50: White Blood Count 9.8, Red Blood Count 3.55L, Hemoglobin 8.5L, Hematocrit 28L, Mean Corpuscular Volume 78L, Mean Corpuscular Hemoglobin 24L, Mean Corpuscular Hemoglobin Concent 31L, Red Cell Distribution Width 21.0H, Platelet Count 188, Mean Platelet Volume 12.0, Immature Granulocyte % (Auto) 1, Neutrophils (%) (Auto) 80H, Lymphocytes (%) (Auto) 9L, Monocytes (%) (Auto) 10, Eosinophils (%) (Auto) 0, Basophils (%) (Auto) 0, Neutrophils # (Auto) 7.9H, Lymphocytes # (Auto ) 0.9L, Monocytes # (Auto) 1.0, Eosinophils # (Auto) 0.0, Basophils # (Auto) 0.0, Immature Granulocyte # (Auto) 0.1, Percent Immature Platelet Fraction 8.4H, Sodium Level 142, Potassium Level 3.4L, Chloride Level 110H, Carbon Dioxide Level 18L, Anion Gap 14, Blood Urea Nitrogen 26H, Creatinine 0.97, Estimat Glomerular Filtration Rate 83, BUN/Creatinine Ratio 27, Glucose Level 163H, Calcium Level 8.3L, Corrected Calcium 8.8, Phosphorus Level 2.7, Magnesium Level 1.6, Total Bilirubin 0.5, Aspartate Amino Transf (AST/SGOT) 45H, Alanine Aminotransferase (ALT/SGPT) 26, Alkaline Phosphatase 77, Total Protein 6.0L, Albumin 3.4 01/04/22 06:14: Glucometer 142H Microbiology 01/01/22 MRSA Screen - Final, Complete MRSA not isolated 01/01/22 Blood Culture - Preliminary, Resulted No growth 01/01/22 Urine Culture - Final, Complete Corynebacterium species Staph, Coag Neg (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 - hgb drom from 9.8 to 8.5 this morning - repeat labs in morning Sepsis with shock due to due to covid and shock due to anemia - will continue with supportive care, support pressures, anemia treated with transfusions. 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 Arias, - pt is not a good candidate for any intervention at this time due to his illness COVID pneumonia - mild symptoms -started on antibiotics, steroid, mat protocol breathing treatments Chronic anticoagulation - holding anticoag due to low hgb on admission. Coronary artery disease - pt currently hypotensive, hold home medications for now. Depression and Vascular dementia - resume home meds once reconciled. Generalized weakness - will need therapy once he is improved. Hypotension - monitor symptoms closely - pressors appear to have been restarted overnight/devops engineer per charting - but when this automotive service writer was in the room, the pressors were not running in through the IV. dvt prophylaxis with scd's gi prophylaxis with ppi therapy Admission Dx Severe anemia COVID pneumonia Chronic anticoagulation Coronary artery disease Depression Vascular dementia Generalized weakness Hypotension Clinical Quality Measures Admission Status Admission Dx Severe anemia COVID pneumonia Chronic anticoagulation Coronary artery disease Depression Vascular dementia Generalized weakness Hypotension ODALYS CARDOZA MD Jan 04, 2022 09:57
--- NOTE | 2022-01-04 10:11 | Tele-ICU Progress Note ---
Subjective Date Seen by a Provider: Jan 04, 2022 Subjective/Events-last exam This virtual visit was conducted using real time audio/video. Thank you for asking us to see this patient for respiratory insufficiency due to pna/congestion. Also Severe anemia 4.9, NSTEMI and Covid positive. Probable underlying COPD Recent events: O2 down to 1 LPM. Pressor resumed PE: Confused. VSS. O2 sat 92% on 1 LPM. HEENT: No obvious masses, adenopathy or JVD. Chest: wheezes on auscultation. CV: RRR S1 S2 No murmur or added sounds. Abd: Non-tender. Bowel sounds Y. : Unremarkable. Abernathy Y. COOK MESS/psychiatric: Confused No obvious focal findings. Extremities: edema. Capillary refill < 3 seconds. Skin: unremarkable. Results: Elevated BUN 26, BG142, D-Dimer 1.69. Decreased Hb 8.5, K 3.4. CXR: hyperinflated, B infilts.+. Available chart/ vitals / labs / images reviewed. Video assessment done using teleICU camera, rest of exam as per RN. A/P: Respiratory insufficiency: Continue present management with NC, Dex., Albut. Monitor for increasing oxygenation needs and/or need for intubation. Critical Care: critically ill patient. Cont. abx,PPI, scds, statin, PRN pressor, SSI, zoloft. allop. ? lasix: may be intravascularly depleted as large UO, pressor reumed. Replace K. Discussed with DEMETRIA Leahy. Asked RN to reach out to eICU if any questions or concerns later. Time spent with patient/coordination of care with other health professionals (mins): Sepsis Event Evaluation Height, Weight, BMI Height: '" Weight: lbs. oz. kg; 24.51 BMI Method: Focused Exam Lactate Level 01/01/22 20:34: Lactic Acid Level 4.25*H 01/01/22 22:35: Lactic Acid Level 3.73*H 01/02/22 03:40: Lactic Acid Level 1.84 Exam Exam Patient acknowledged, consented, and participated in this virtual visit which was conducted using real time audio/video Vital Signs Date Time Temp Pulse Resp B/P (MAP) Pulse Ox O2 Delivery O2 Flow Rate FiO2 01/04/22 09:54 97 Nasal Cannula 1.00 01/04/22 09:00 96 15 124/76 (92) 96 Nasal Cannula 1.00 01/04/22 07:59 36.4 90 26 120/78 (92) 97 Nasal Cannula 1.00 01/04/22 07:48 96 Nasal Cannula 1.00 01/04/22 07:15 98 Nasal Cannula 3.00 01/04/22 07:00 91 18 129/78 (95) 95 Nasal Cannula 1.00 01/04/22 07:00 90 01/04/22 06:00 60 22 111/59 (76) 96 Nasal Cannula 3.00 01/04/22 05:00 81 16 113/82 (92) 97 Nasal Cannula 3.00 01/04/22 04:00 61 28 102/51 (68) 97 Nasal Cannula 3.00 01/04/22 04:00 94 Nasal Cannula 3.00 01/04/22 03:32 95 Nasal Cannula 3.00 01/04/22 03:15 64 95/47 01/04/22 03:00 68 25 94/50 (65) 95 Nasal Cannula 3.00 01/04/22 02:00 85 25 115/65 (82) 96 Nasal Cannula 3.00 01/04/22 01:00 78 26 89/47 (61) 92 Nasal Cannula 3.00 01/04/22 01:00 84 01/04/22 00:13 80 80/57 01/04/22 00:00 92 Nasal Cannula 3.00 01/04/22 00:00 77 17 80/57 (65) 92 Nasal Cannula 3.00 01/03/22 23:00 86 28 84/46 (59) 92 Nasal Cannula 3.00 01/03/22 22:00 93 22 99/48 (65) 92 Nasal Cannula 3.00 01/03/22 21:52 94 Nasal Cannula 3.00 01/03/22 21:00 93 19 104/64 (77) 93 Nasal Cannula 3.00 01/03/22 20:00 93 Nasal Cannula 3.00 01/03/22 20:00 87 25 97/57 (70) 92 Nasal Cannula 3.00 01/03/22 19:50 36.8 01/03/22 19:00 96 01/03/22 19:00 84 17 103/75 (84) 93 Nasal Cannula 3.00 01/03/22 18:32 92 Nasal Cannula 3.00 01/03/22 18:00 87 20 117/81 (93) 97 Nasal Cannula 3.00 01/03/22 17:00 81 17 78/47 (57) 95 Nasal Cannula 3.00 01/03/22 16:30 Nasal Cannula 3.00 01/03/22 16:00 89 14 84/62 (69) 96 NIV Bilevel 30.00 01/03/22 16:00 94 Nasal Cannula 3.00 01/03/22 15:54 36.4 01/03/22 15:22 96 Nasal Cannula 3.00 01/03/22 15:00 94 22 117/86 (96) 98 NIV Bilevel 30.00 01/03/22 14:00 90 21 107/67 (80) 97 NIV Bilevel 30.00 01/03/22 12:54 113 01/03/22 12:51 36.1 105 24 140/93 (109) 99 NIV Bilevel 30.00 01/03/22 12:00 84 21 119/82 (94) 98 Nasal Cannula 3.00 01/03/22 12:00 37.1 01/03/22 12:00 100 Nasal Cannula 3.00 01/03/22 11:00 93 20 104/55 (71) 99 Nasal Cannula 3.00 I & O 01/04/22 07:00 Intake Total 1972.5 ml Output Total 2500 ml Balance -527.5 ml Height & Weight Height: '" Weight: lbs. oz. kg; 24.51 BMI Method: General Appearance: No Apparent Distress, WD/WN HEENT: PERRL/EOMI, Pharynx Normal Neck: Full Range of Motion, Supple Respiratory: Chest Non Tender, No Accessory Muscle Use, No Respiratory Distress, Crackles (in bases - poor effort of breathing), Decreased Breath Sounds Cardiovascular: Regular Rate, Rhythm, Systolic Murmur Capillary Refill: Less Than 3 Seconds Extremity: Normal Capillary Refill, Normal Range of Motion, Non Tender, No Calf Tenderness, No Pedal Edema Neurologic/Psychiatric: Alert, Other (not oriented to place, time, but is oriented to person, flat affect) Skin: Normal Color, Warm/Dry Lymphatic: No Adenopathy Results Lab Laboratory Tests 01/02/22 15:10 01/03/22 00:50 01/04/22 04:50 Assessment/Plan Assessment/Plan See free text. Critical Care: Critically Ill Patient GERMÁN CHI MD Jan 04, 2022 10:11
--- NOTE | 2022-01-04 10:20 | Cardiology Progress Note ---
Progress Note-Cardiology Events since last exam Date Seen by Provider: Jan 04, 2022 Time Seen by Provider: 10:23 Events since last exam I am following him due to probable NSTEMI. He remains in the intensive care unit. I spoke to the patient from the doorway. I did not enter his room due to his COVID status. Last evening he went back into shock and was placed back on phenylephrine infusion. He was sitting up in bed. He told me he felt somewhat dizzy. He denied chest pain, dyspnea at rest, palpitations, syncope, or ankle edema. Certain portions of this document may have been dictated utilizing voice recognition technology. Inherent to this technology, typographical and grammatical errors may exist. As much as I am diligent to identify and correct these mistakes, some errors may remain in the document. Vitals Last set of Vitals Signs Vital Signs 01/01/22 01/04/22 01/04/22 22:23 07:59 10:00 Temp 36.4 Pulse 76 Resp 20 B/P (MAP) 121/83 (96) Pulse Ox 95 O2 Delivery Nasal Cannula O2 Flow Rate 1.00 FiO2 21 Labs Labs Laboratory Tests 01/04/22 04:50 Exam Vital Signs Vital Signs Date Time Temp Pulse Resp B/P (MAP) Pulse Ox O2 Delivery O2 Flow Rate FiO2 01/04/22 10:00 76 20 121/83 (96) 95 Nasal Cannula 1.00 01/04/22 07:59 36.4 01/01/22 22:23 21 Physical Exam Due to the patient's COVID status, I spoke with the patient from the doorway. General: The patient is breathing spontaneously. HENT: Normocephalic. Atraumatic. Skin: There is no pallor. Neurologic: Oriented to person and place but not time cranial nerves III through XII grossly intact. Moving all 4 extremities. Psychiatric: Appears cooperative. Labs Laboratory Tests Test 01/03/22 11:10 01/03/22 15:52 01/03/22 17:50 01/03/22 21:33 Range/Units Troponin I 8.882 *H <0.028 NG/ML Glucometer 196 H 173 H 211 H 70-110 MG/DL Test 01/04/22 04:50 01/04/22 06:14 Range/Units White Blood Count 9.8 4.3-11.0 10^3/uL Red Blood Count 3.55 L 4.30-5.52 10^6/uL Hemoglobin 8.5 L 13.3-17.7 g/dL Hematocrit 28 L 40-54 % Mean Corpuscular Volume 78 L 80-99 fL Mean Corpuscular Hemoglobin 24 L 25-34 pg Mean Corpuscular Hemoglobin Concent 31 L 32-36 g/dL Red Cell Distribution Width 21.0 H 10.0-14.5 % Platelet Count 188 130-400 10^3/uL Mean Platelet Volume 12.0 9.0-12.2 fL Immature Granulocyte % (Auto) 1 % Neutrophils (%) (Auto) 80 H 42-75 % Lymphocytes (%) (Auto) 9 L 12-44 % Monocytes (%) (Auto) 10 0-12 % Eosinophils (%) (Auto) 0 0-10 % Basophils (%) (Auto) 0 0-10 % Neutrophils # (Auto) 7.9 H 1.8-7.8 10^3/uL Lymphocytes # (Auto) 0.9 L 1.0-4.0 10^3/uL Monocytes # (Auto) 1.0 0.0-1.0 10^3/uL Eosinophils # (Auto) 0.0 0.0-0.3 10^3/uL Basophils # (Auto) 0.0 0.0-0.1 10^3/uL Immature Granulocyte # (Auto) 0.1 0.0-0.1 10^3/uL Percent Immature Platelet Fraction 8.4 H 0.0-7.6 % Sodium Level 142 135-145 MMOL/L Potassium Level 3.4 L 3.6-5.0 MMOL/L Chloride Level 110 H 98-107 MMOL/L Carbon Dioxide Level 18 L 21-32 MMOL/L Anion Gap 14 5-14 MMOL/L Blood Urea Nitrogen 26 H 7-18 MG/DL Creatinine 0.97 0.60-1.30 MG/DL Estimat Glomerular Filtration Rate 83 BUN/Creatinine Ratio 27 Glucose Level 163 H 70-105 MG/DL Calcium Level 8.3 L 8.5-10.1 MG/DL Corrected Calcium 8.8 8.5-10.1 MG/DL Phosphorus Level 2.7 2.3-4.7 MG/DL Magnesium Level 1.6 1.6-2.4 MG/DL Total Bilirubin 0.5 0.1-1.0 MG/DL Aspartate Amino Transf (AST/SGOT) 45 H 5-34 U/L Alanine Aminotransferase (ALT/SGPT) 26 0-55 U/L Alkaline Phosphatase 77 40-136 U/L Total Protein 6.0 L 6.4-8.2 GM/DL Albumin 3.4 3.2-4.5 GM/DL Glucometer 142 H 70-110 MG/DL Diagnosis/Problems Diagnosis/Problems (1) Non-ST elevation myocardial infarction (NSTEMI), initial care episode Status: Acute Assessment & Plan: He has a markedly elevated troponin level which trended downwards and with anterolateral ischemic changes on his electrocardiogram. I suspect he has suffered a non-ST elevation myocardial infarction, possibly type I. Unfortunately, due to his severe anemia of unclear etiology, he is not a candidate for any antiplatelet or anticoagulant medications at this time. If his hemoglobin remains stable over the next 1-3 days, we could consider at least starting low strength aspirin. He did have some brief episodes of probable hypovolemic shock and therefore, is also not a candidate for beta-kp. He is on high-dose statin medication. Given his advanced dementia and multiple comorbid conditions, he is not a good candidate for an invasive cardiac evaluation at this time. (2) Shock Assessment & Plan: He developed recurrent shock last evening. I suspect this is multifactorial due to hypovolemia from the previous hemorrhaging and possibly superimposed sepsis. At some point, we may want to consider an echocardiogram but I will hold off on this for now due to his COVID status. The nurse is attempting to wean off the phenylephrine. (3) Acute heart failure with reduced ejection fraction and diastolic dysfunction Assessment & Plan: He has received blood transfusions and volume resuscitation. His chest x-ray seems to be improving since starting furosemide infusion on 01/03. He remains intermittently hypotensive. (4) Mitral valve regurgitation Assessment & Plan: He has a history of severe mitral regurgitation. Dr. Leyva had been considering referring him for a MitraClip procedure. (5) Cardiomyopathy Assessment & Plan: He has mild left ventricular systolic dysfunction on both his transthoracic and transesophageal echocardiogram earlier this year. I suspect this may be ischemic cardiomyopathy. He was on carvedilol at home which is currently on hold due to intermittent shock. We can attempt to restart guideline directed medical therapy when his blood pressure will allow. (6) Typical atrial flutter Assessment & Plan: He has a history of atrial flutter but has not been on antiarrhythmic drug. He has been on rivaroxaban for stroke prophylaxis. This is on hold due to the severe anemia and we will consider resuming once he moglobin is stable. As a matter fact, he has been on triple therapy. Given his age and multiple comorbid conditions, if we do decide to resume oral anticoagulation, I would either treat him with aspirin or clopidogrel as an antiplatelet agent but certainly not both. (7) Peripheral arterial disease Assessment & Plan: He has previous bilateral iliac stents earlier this year. As above, we will consider resuming either aspirin or clopidogrel once his cl inical status and hemoglobin stabilized. If he needs to be on oral anticoagulation for the atrial fibrillation, I would recommend not resuming dual antiplatelet therapy. (8) History of cerebrovascular accident with residual deficit Assessment & Plan: Consider resuming aspirin or clopidogrel when hemoglobin and clinical status are more stabilized. Unclear whether or not his previous stroke had anything to do with the atrial flutter. We will also need to decide whether or not to resume oral anticoagulation. (9) Coronary artery disease with unstable angina pectoris Assessment & Plan: As above, he is probably having a type I non-ST elevation myocardial infarction. Unfortunately, for the reasons outlined above, he is not a candidate for any of the usual guideline directed medical therapy at this point in time nor is he a good candidate for an invasive cardiac evaluation at this time. (10) Pulmonary hypertension Assessment & Plan: He has moderate to severe pulmonary hypertension as noted on his transthoracic echocardiogram in April 2021. I suspect this is multifactorial due to the mild cardiomyopathy and severe mitral regurgitation. (11) Primary hypertension Assessment & Plan: He was on carvedilol at home which is on hold due to hypotension. (12) Mixed hyperlipidemia Assessment & Plan: Continue intensive dose statin medication. (13) Acute kidney injury Assessment & Plan: His baseline renal function is actually quite good. I suspect he had some acute kidney injury due to the severe anemia and intermittent hypotension. His renal function has been improving and now appears to be back to baseline. (14) Severe anemia Status: Acute Assessment & Plan: He has received several blood transfusions. I would be concerned that he may have gastrointestinal hemorrhage given that he was on dual pathway triple antiplatelet/anticoagulant medication at home. These are now on hold. At some point, we may want to consider a general surgery consultation for consideration of endoscopy. It would probably be best to wait until he is more clinically stable before considering the sort of procedure. (15) COVID-19 Status: Acute Assessment & Plan: This is being managed by the eICU and primary provider. Despite all of his other problems, he has been maintaining reasonably good oxygenation and has not required intubation at this time. RADHA ZUNIGA JR, MD Jan 04, 2022 10:20
[2022-01-04] MEDS: ALLOPURINOL 100 MG (ZYLOPRIM) TAB PO SCH (17:24)
[2022-01-04] MEDS: ACETAMINOPHEN 500 MG TAB (TYLENOL) PO PRN (17:29)
[2022-01-04] MEDS: SERTRALINE 50 MG (ZOLOFT) TABLET PO SCH (19:36)
[2022-01-04] MEDS: SERTRALINE 100 MG (ZOLOFT) TAB PO SCH (19:36)
[2022-01-04] MEDS ORDERED: TROUGH ORDER-PHARMACY XX NR (21:00)
[2022-01-05] MEDS: RT-ALBUTEROL HFA 8.5 GM INHALER IH SCH ×6 (02:41→22:57)
[2022-01-05] MEDS: PHENYLEPHRINE DRIP 250 ML IV SCH ×2 (03:44→19:00)
[2022-01-05 05:19] LABS: EOSINOPHILS % (AUTO) 0 % (0-10); MEAN CORPUSCULAR VOLUME 77 fL (80-99)
[2022-01-05 05:20] LABS: BASOPHILS % (AUTO) 0 % (0-10); HEMATOCRIT 29 % (40-54); LYMPHOCYTES # (AUTO) 0.9 10^3/uL (1.0-4.0); LYMPHOCYTES % (AUTO) 9 % (12-44); MEAN CORPUSCULAR HEMOGLOBIN 24 pg (25-34); MEAN CORPUSCULAR HGB CONC 31 g/dL (32-36); MEAN PLATELET VOLUME 10.5 fL (9.0-12.2); MONOCYTES # (AUTO) 1.1 10^3/uL (0.0-1.0); MONOCYTES % (AUTO) 10 % (0-12); NEUTROPHILS # (AUTO) 8.3 10^3/uL (1.8-7.8); NEUTROPHILS % (AUTO) 80 % (42-75); PLATELET COUNT 190 10^3/uL (130-400); WHITE BLOOD COUNT 10.4 10^3/uL (4.3-11.0)
[2022-01-05 05:39] LABS: ALBUMIN 3.6 GM/DL (3.2-4.5); BILIRUBIN,TOTAL 0.6 MG/DL (0.1-1.0); CALCIUM 8.6 MG/DL (8.5-10.1); CREATININE SERUM 1.16 MG/DL (0.60-1.30); MAGNESIUM 1.7 MG/DL (1.6-2.4); PHOSPHORUS 3.6 MG/DL (2.3-4.7); POTASSIUM 3.1 MMOL/L (3.6-5.0)
[2022-01-05 05:50] LABS: TOTAL PROTEIN 6.5 GM/DL (6.4-8.2)
[2022-01-05] MEDS: KCL 20 MEQ TAB (K-DUR) PO SCH (06:00)
[2022-01-05] MEDS: MAGNESIUM 1 GM/100 ML IVPB 100 ML IV SCH (06:00)
[2022-01-05] MEDS: POTASSIUM CL 10MEQ/50ML IVPB 50 ML IV SCH (06:00)
[2022-01-05] MEDS: CATHETER FLUSH 10 ML SYR IVP SCH ×3 (06:05→22:00)
[2022-01-05] MEDS: inSUlin ASPART (NovoLOG) 1 UNIT/0.01 ML (CHARGE PER UNIT) SC SCH ×4 (06:38→21:58)
[2022-01-05] MEDS ORDERED: TROUGH ORDER-PHARMACY XX ONE ×2 (07:18→17:00)
[2022-01-05] MEDS: FINASTERIDE (PROSCAR) 5 MG TAB PO SCH (08:24)
[2022-01-05] MEDS: dexAMETHasone 6 MG TAB (DECADRON) PO SCH (08:24)
[2022-01-05] MEDS: PANTOPRAZOLE 40 MG (PROTONIX) VIAL IV SCH (08:25)
--- NOTE | 2022-01-05 08:34 | Diagnostic Imaging Report ---
INDICATION: Pneumonia. COMPARISON: 01/04/2022. FINDINGS: The lungs show relatively good aeration. There continues to be some infiltrate medially in right lung base. The heart is enlarged. Pulmonary vasculature does appear slightly prominent. Could not exclude small basilar effusions. IMPRESSION: 1. Slight improvement noted with some decrease in density of infiltrate in right lung base. 2. Cardiomegaly with mild prominent pulmonary vasculature. Dictated by: Dictated on workstation # [id number]
[2022-01-05] MEDS ORDERED: KCL 20 MEQ TAB (K-DUR) PO NR (09:00)
[2022-01-05] MEDS ORDERED: CEFEPIME INJECTION 2,000 MG in NS (IVPB) 50 ML IV SCH ×2 (09:00→21:00)
--- NOTE | 2022-01-05 09:07 | Cardiology Progress Note ---
Subjective Date Seen by Provider: Jan 05, 2022 Time Seen by Provider: 09:02 Subjective/Events-last exam Patient was seen at bedside, laying down comfortably Feeling better, still having mild dyspnea. Review of Systems General: No Chills, No Night Sweats, No Fatigue, No Malaise, No Appetite, No Other HEENT: No Head Aches, No Visual Changes, No Eye Pain, No Ear Pain, No Dysphasia, No Sinus Congestion, No Post Nasal Drip, No Sore Throat, No Other Pulmonary: Dyspnea, Cough; No Pleuritic Chest Pain, No Other Cardiovascular: No: Chest Pain, Palpitations, Orthopnea, Paroxysmal Noc. Dyspnea, Edema, Lt Headedness, Other Objective-Cardiology Exam Last Set of Vital Signs Vital Signs 01/01/22 01/05/22 01/05/22 01/05/22 22:23 07:00 07:23 08:35 Temp 35.8 Pulse 60 Resp 12 B/P (MAP) 125/71 (89) Pulse Ox 95 O2 Delivery Room Air FiO2 21 I&O Intake and Output 01/05/22 00:00 Intake Total 1860 ml Output Total 3575 ml Balance -1715 ml Intake Oral 1260 ml IV Total 600 ml Output Urine Total 3575 ml General: Alert, Cooperative HEENT: Atraumatic, PERRLA Neck: Supple Heart: Regular Rate Abdomen: No Tenderness Extremities: No Clubbing Skin: No Rashes, No Breakdown Neuro: Normal Speech Psych/Mental Status: Mental Status NL, Mood NL Results Lab Laboratory Tests 01/05/22 05:05 A/P-Cardiology Admission Diagnosis COVID-19 pneumonia Non-ST elevation myocardial infarction Severe anemia Hypotensive shock Assessment/Plan COVID-19 pneumonia, improving slowly. Maintained in isolation in ICU Sepsis with septic shock, has been hypotensive. Currently off all pressors and blood pressure appear to be stable. Continue to monitor Shortness of breath, secondary to above. Receiving diuretics Improving slowly, I am stopping Lasix drip and I will use IV boluses Non-ST elevation myocardial infarction, significant elevation in troponin, probably multifactorial in addition to the underlying coronary artery disease Cannot tolerate anticoagulation at this point. Continue to monitor. Patient denied any active chest pain Severe anemia, received blood transfusion, monitor H&H and will need to restart aspirin once his hemoglobin is more stable. History of CVA, had dysphagia and right-sided vision loss, improved. Reporting resolution of most of his symptoms from the stroke. CT showed infarction of the left posterior cerebral artery distribution versus mass-effec t. Has been doing well. Patient was maintained on Xarelto 20 mg daily. Currently on hold 2D echo was done on April 15, 2021 showing normal left ventricular size with mildly reduced ejection fraction of 45 to 50%, grade 2 diastolic dysfunction, left atrium 4.7 cm, severe mitral regurgitation, PA pressure 55 mmHg. Severe mitral regurgitation, significant deterioration of the pulmonary artery pressure. Deterioration in the left ventricular function compared to the previous study. ALESSIO was done on April 30, 2021 showing severe mitral regurgitation with flow reversal in the pulmonary vein, mildly reduced left ventricular function with ejection fraction 40% and dilated left atrium. will require evaluation for mitral valve clip after the cardiac catheterization Coronary artery disease, patient had an abnormal stress test on May 07, 2021 showing diaphragmatic attenuation with motion artifact affecting the quality of the images with mild decrease uptake of the mid to apical inferior wall and inferolateral wall with mild reversibility, stress score 5, SDS 4, ejection fraction 53%. Had a failed or had cardiac catheterization in July 2021 due to the total occlusion of the line common iliac artery and occlusion of the left common iliac artery. Referred to [facility] with Dr. Sarabia on July 11, 2021. Had bilateral iliac stenting. Currently asymptomatic. Continue to monitor Peripheral arterial disease, total occlusion of both iliac artery, referred to [facility] and had bilateral iliac stenting by Dr. Sarabia in July 2021. Using Viabahn stent. I will try to obtain the formal report from Dr. Sarabia. Carotid stenosis, had moderate, 40-59 percent stenosis. Nonobstructive disease disease, underwent left carotid stent at [facility]. Carotid ultrasound done on April 04, 2021 showed severe carotid stenosis bilaterally with patent stent on the left. 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 No cardiac work-up was done since then. I am planning to evaluate echo and stress test. Planning to switch him to Xarelto on due to the cost of medication. Hypertension, was hypotensive initially on admission. Currently off pressors Monitor blood pressure Hyperlipidemia, maintained on Lipitor 80 mg. Monitor lipids History of hematuria, BPH. 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 BERNICE MONTERO MD Jan 05, 2022 09:07
--- NOTE | 2022-01-05 09:33 | Progress Note ---
Subjective Subjective Date Seen by Provider: Jan 05, 2022 Time Seen by Provider: 09:00 Derek is demented, is an overall poor historian but this morning he is more conversational - he reports feeling better today sitting up in his bed, watching television. Pt reports that his appetite is better, staff reports that he is eating much more robustly. Review of Systems General: No Chills, No Night Sweats; Fatigue; No Malaise HEENT: No Head Aches, No Dysphasia; Post Nasal Drip; No Sore Throat Pulmonary: Dyspnea, Cough; No Pleuritic Chest Pain, No Other Cardiovascular: No: Chest Pain, Palpitations, Orthopnea, Paroxysmal Noc. Dyspnea, Edema Gastrointestinal: No: Nausea, Abdominal Pain, Diarrhea, Constipation Genitourinary: No Dysuria Musculoskeletal: No: back pain Neurological: Weakness, Confusion All Other Systems Reviewed All Other Systems Reviewed: Yes Objective Exam Vital Signs Vital Signs Date Time Temp Pulse Resp B/P (MAP) Pulse Ox O2 Delivery O2 Flow Rate FiO2 01/05/22 09:00 82 20 115/101 (106) 92 Room Air 01/05/22 08:35 35.8 01/05/22 08:00 88 25 106/82 (90) 93 Room Air 01/05/22 07:23 60 01/05/22 07:00 61 12 125/71 (89) 95 Room Air 01/05/22 06:58 93 Room Air 01/05/22 06:00 59 18 110/64 (77) 95 Room Air 01/05/22 05:00 58 111/66 (81) 91 Room Air 01/05/22 04:30 57 110/58 (75) 92 Room Air 01/05/22 04:00 81 29 117/65 (82) 90 Nasal Cannula 1.00 01/05/22 04:00 94 Room Air 01/05/22 03:44 64 109/57 01/05/22 02:41 92 Room Air 01/05/22 02:00 67 24 104/49 (67) 94 Nasal Cannula 1.00 01/05/22 01:00 62 16 109/58 (75) 91 Nasal Cannula 1.00 01/05/22 01:00 62 01/05/22 00:00 96 Nasal Cannula 1.00 01/05/22 00:00 58 15 103/58 (73) 92 Nasal Cannula 1.00 01/04/22 23:00 71 14 103/68 (80) 93 Nasal Cannula 1.00 01/04/22 22:08 96 Room Air 01/04/22 22:00 66 14 109/58 (80) 94 Nasal Cannula 1.00 01/04/22 21:00 74 22 100/65 (76) 94 Nasal Cannula 1.00 01/04/22 20:00 73 10 116/68 (82) 94 Nasal Cannula 1.00 01/04/22 20:00 95 Nasal Cannula 1.00 01/04/22 19:00 78 01/04/22 19:00 78 11 115/57 (71) 94 Nasal Cannula 1.00 01/04/22 18:51 95 Room Air 01/04/22 18:00 95 85/61 (69) 93 Nasal Cannula 1.00 01/04/22 17:26 85 109/69 01/04/22 17:00 85 17 109/69 (82) 91 Nasal Cannula 1.00 01/04/22 16:15 97 Nasal Cannula 1.00 01/04/22 16:00 37.3 01/04/22 16:00 84 16 100/57 (71) 91 Nasal Cannula 1.00 01/04/22 15:00 91 18 103/47 (65) 91 Nasal Cannula 1.00 01/04/22 14:57 90 Room Air 01/04/22 14:00 83 24 120/75 (90) 94 Nasal Cannula 1.00 01/04/22 13:00 91 21 90/82 (85) 94 Nasal Cannula 1.00 01/04/22 12:38 80 01/04/22 12:16 97 Nasal Cannula 1.00 01/04/22 12:00 71 19 103/55 (71) 90 Nasal Cannula 1.00 01/04/22 12:00 37.1 01/04/22 11:00 80 34 114/70 (85) 95 Nasal Cannula 1.00 01/04/22 10:00 76 20 121/83 (96) 95 Nasal Cannula 1.00 01/04/22 09:54 97 Nasal Cannula 1.00 I & O 01/05/22 07:00 Intake Total 1940 ml Output Total 3875 ml Balance -1935 ml General Appearance: No Apparent Distress, WD/WN HEENT: PERRL/EOMI, Pharynx Normal Neck: Full Range of Motion, Supple Respiratory: Chest Non Tender, No Accessory Muscle Use, No Respiratory Distress, Crackles (in bases - poor effort of breathing), Decreased Breath Sounds Cardiovascular: Regular Rate, Rhythm, Systolic Murmur Gastrointestinal: Normal Bowel Sounds, Non Tender, Soft Rectal: Deferred Back: Normal Inspection, No Vertebral Tenderness Extremity: Normal Capillary Refill, Normal Range of Motion, Non Tender, No Calf Tenderness, No Pedal Edema Neurologic/Psychiatric: Alert, Other (oriented to person, place not time) Skin: Normal Color, Warm/Dry Lymphatic: No Adenopathy Results Lab Laboratory Tests 01/04/22 10:31: Glucometer 161H 01/04/22 15:50: Glucometer 189H 01/04/22 20:25: Vancomycin Level Trough 29.4*H 01/04/22 21:06: Glucometer 177H 01/05/22 05:05: White Blood Count 10.4, Red Blood Count 3.77L, Hemoglobin 9.0L, Hematocrit 29L, Mean Corpuscular Volume 77L, Mean Corpuscular Hemoglobin 24L, Mean Corpuscular Hemoglobin Concent 31L, Red Cell Distribution Width 21.8H, Platelet Count 190, Mean Platelet Volume 10.5, Immature Granulocyte % (Auto) 1, Neutrophils (%) (Auto) 80H, Lymphocytes (%) (Auto) 9L, Monocytes (%) (Auto) 10, Eosinophils (%) (Auto) 0, Basophils (%) (Auto) 0, Neutrophils # (Auto) 8.3H, Lymphocytes # (Auto) 0.9L, Monocytes # (Auto) 1.1H, Eosinophils # (Auto) 0.0, Basophils # (Auto) 0.0, Immature Granulocyte # (Auto) 0.1, Percent Immature Platelet Fraction 7.7H, Sodium Level 141, Potassium Level 3.1L, Chloride Level 105, Carbon Dioxide Level 21, Anion Gap 15H, Blood Urea Nitrogen 33H, Creatinine 1.16, Estimat Glomerular Filtration Rate 67, BUN/Creatinine Ratio 28, Glucose Level 166H, Calcium Level 8.6, Corrected Calcium 8.9, Phosphorus Level 3.6, Magnesium Level 1.7, Total Bilirubin 0.6, Aspartate Amino Transf (AST/SGOT) 31, Alanine Aminotransferase (ALT/SGPT) 23, Alkaline Phosphatase 76, Total Protein 6.5, Albumin 3.6, Vancomycin Level Trough 23.8H 01/05/22 06:25: Glucometer 155H Microbiology 01/01/22 MRSA Screen - Final, Complete MRSA not isolated 01/01/22 Blood Culture - Preliminary, Resulted No growth 01/01/22 Urine Culture - Final, Complete Corynebacterium species Staph, Coag Neg (CONNIE SCRATCHER) Assessment/Plan Assessment/Plan Admission Dx Severe anemia COVID pneumonia Chronic anticoagulation Coronary artery disease Depression Vascular dementia Generalized weakness Hypotension Assessment and Plan Severe anemia COVID pneumonia Sepsis with shock Leukocytosis Chronic anticoagulation Coronary artery disease Depression Vascular dementia Generalized weakness Hypotension Elevated troponin Severe anemia - hold aspirin, plavix, xarelto - replaced with transfusions - monitor h and h serially, transfuse as needed. - hgb improved from 8.5 this morning to 9.0- repeat labs in morning Sepsis with shock due to due to covid and shock due to anemia - will continue with supportive care, support pressures, anemia treated with transfusions. - added antibiotics, steroids on 01/03/22 - pt has improvement in his white count - xray improved per radiologist report Elevated troponin - severely elevated troponin - improved from 15 to 8, suspect elevation due to shock and anemia - consult to electronics engineering manager Cardiology - discussed with Dr. Arias, - pt is not a good candidate for any intervention at this time due to his illness COVID pneumonia - mild symptoms -started on antibiotics, steroid, mat protocol breathing treatments Chronic anticoagulation - holding anticoag due to low hgb on admission. Coronary artery disease - pt currently hypotensive, hold home medications for now. Depression and Vascular dementia - resume home meds once reconciled. Generalized weakness - will need therapy once he is improved. Hypotension - monitor symptoms closely - pressors intermittently used over the past 24 hours dvt prophylaxis with scd's gi prophylaxis with ppi therapy Admission Dx Severe anemia COVID pneumonia Chronic anticoagulation Coronary artery disease Depression Vascular dementia Generalized weakness Hypotension Clinical Quality Measures Admission Status Admission Dx Severe anemia COVID pneumonia Chronic anticoagulation Coronary artery disease Depression Vascular dementia Generalized weakness Hypotension ODALYS CARDOZA MD Jan 05, 2022 09:33
--- NOTE | 2022-01-05 12:20 | Tele-ICU Progress Note ---
Subjective Date Seen by a Provider: Jan 05, 2022 Time Seen by a Provider: 12:17 Subjective/Events-last exam (Tele-ICU Physician , Progress Note ) Service provided via interactive audio and video telecommunications E-CARE system to a patient admitted to ICU bed in [facility]. Available chart/ vitals / labs / Images reviewed Video assessment done using teleICU camera, rest of exam as per RN Discussed with RN Afebrile Respiratory - ra I/O = not recorded Drips: Pressors- jan STOPPED 01/03 Consultants: Hospital course: (01/01) 71yr M admitted for Sepsis (unknown source) and severe anemia HGB 4.9. Patient is seen today due to persistent anemia and resp failure A/P anemia: 01/01 4.9, down from 14.7 in July. on XARELTO - Occult blood negative, but could be false negative. Hemolysis unlikely with bili 0.6. - PPI dialy -s/p transfusion 4 u prbc 01/02 , hb stable after Acute resp failure - 01/03 IMPROVED - PNA vs pulm edema / vs VO - was started on steroids and Possible RLL PNA vs covid PNA - cont abx , cont steroids course PO - monitor fluid statis , follow Shock - RESOLVED - OFF pressors ( ? septic ) LEA - follow with volume expansion pRBC . monitor for VO - IMPROVED Elevated trop with chest pain last night -plams as per cards consulted -ECHO 04/2021 EF 40 % , severe MR - as per cards - COVID feels unwell but saturating 98% RA.ON ADMISSION -STARTED ON DECADRON WITH WORSENING RESP STATUS 01/03- to finish course - hyperglycemia - monitor , ISS UTI vs PNA - ABX STARTED 01/03 Lines : periph PICC , (Central Line Necessity Reviewed) Rascon: rascon OG: Nutrition: po Analgesia: Anxiety/ delirium VTE Prophylaxis: scd Stress Ulcer Prophylaxis: PPI Plans in collaboration with bedside consultants and IM MDs. discussed with dr Sanchez Discussed with RN to reach out if any questions or concerns A total of 25 minutes of critical care time was devoted to this patient today, required to treat and/or prevent further deterioration of critical care condition ( as above ) . I am remotely monitoring this patient from another state. I am unable to do the bedside exam, and history/physical and pertinent information is taken from other notes in the computer and bedside staff. Sepsis Event Evaluation Height, Weight, BMI Height: '" Weight: lbs. oz. kg; 25.02 BMI Method: Exam Exam Patient acknowledged, consented, and participated in this virtual visit which was conducted using real time audio/video Vital Signs Date Time Temp Pulse Resp B/P (MAP) Pulse Ox O2 Delivery O2 Flow Rate FiO2 01/05/22 12:14 36.2 01/05/22 11:00 69 11 107/58 (74) 89 Room Air 01/05/22 10:25 96 Room Air 01/05/22 10:00 63 26 109/69 (82) 92 Room Air 01/05/22 09:00 82 20 115/101 (106) 92 Room Air 01/05/22 08:35 35.8 01/05/22 08:00 88 25 106/82 (90) 93 Room Air 01/05/22 07:48 94 Room Air 1.00 01/05/22 07:23 60 01/05/22 07:00 61 12 125/71 (89) 95 Room Air 01/05/22 06:58 93 Room Air 01/05/22 06:00 59 18 110/64 (77) 95 Room Air 01/05/22 05:00 58 111/66 (81) 91 Room Air 01/05/22 04:30 57 110/58 (75) 92 Room Air 01/05/22 04:00 81 29 117/65 (82) 90 Nasal Cannula 1.00 01/05/22 04:00 94 Room Air 01/05/22 03:44 64 109/57 01/05/22 02:41 92 Room Air 01/05/22 02:00 67 24 104/49 (67) 94 Nasal Cannula 1.00 01/05/22 01:00 62 16 109/58 (75) 91 Nasal Cannula 1.00 01/05/22 01:00 62 01/05/22 00:00 96 Nasal Cannula 1.00 01/05/22 00:00 58 15 103/58 (73) 92 Nasal Cannula 1.00 01/04/22 23:00 71 14 103/68 (80) 93 Nasal Cannula 1.00 01/04/22 22:08 96 Room Air 01/04/22 22:00 66 14 109/58 (80) 94 Nasal Cannula 1.00 01/04/22 21:00 74 22 100/65 (76) 94 Nasal Cannula 1.00 01/04/22 20:00 73 10 116/68 (82) 94 Nasal Cannula 1.00 01/04/22 20:00 95 Nasal Cannula 1.00 01/04/22 19:00 78 01/04/22 19:00 78 11 115/57 (71) 94 Nasal Cannula 1.00 01/04/22 18:51 95 Room Air 01/04/22 18:00 95 85/61 (69) 93 Nasal Cannula 1.00 01/04/22 17:26 85 109/69 01/04/22 17:00 85 17 109/69 (82) 91 Nasal Cannula 1.00 01/04/22 16:15 97 Nasal Cannula 1.00 01/04/22 16:00 37.3 01/04/22 16:00 84 16 100/57 (71) 91 Nasal Cannula 1.00 01/04/22 15:00 91 18 103/47 (65) 91 Nasal Cannula 1.00 01/04/22 14:57 90 Room Air 01/04/22 14:00 83 24 120/75 (90) 94 Nasal Cannula 1.00 01/04/22 13:00 91 21 90/82 (85) 94 Nasal Cannula 1.00 01/04/22 12:38 80 I & O 01/05/22 07:00 Intake Total 1940 ml Output Total 3875 ml Balance -1935 ml Height & Weight Height: '" Weight: lbs. oz. kg; 25.02 BMI Method: General Appearance: No Apparent Distress, WD/WN HEENT: PERRL/EOMI, Pharynx Normal Neck: Full Range of Motion, Supple Respiratory: Chest Non Tender, No Accessory Muscle Use, No Respiratory Distress, Crackles (in bases - poor effort of breathing), Decreased Breath Sounds Cardiovascular: Regular Rate, Rhythm, Systolic Murmur Capillary Refill: Less Than 3 Seconds Extremity: Normal Capillary Refill, Normal Range of Motion, Non Tender, No Calf Tenderness, No Pedal Edema Neurologic/Psychiatric: Alert, Other (oriented to person, place not time) Skin: Normal Color, Warm/Dry Lymphatic: No Adenopathy Results Lab Laboratory Tests 01/04/22 04:50 01/05/22 05:05 Assessment/Plan Assessment/Plan 1 DIONI MAYERS MD Jan 05, 2022 12:20
[2022-01-05] MEDS: ALLOPURINOL 100 MG (ZYLOPRIM) TAB PO SCH (16:30)
[2022-01-05] MEDS: CEFEPIME 1,000 MG/NS 50 ML IVPB IV SCH ×4 (16:30→21:58)
[2022-01-05] MEDS: FUROSEMIDE 40 MG/4 ML INJ (LASIX) IVP SCH (16:30)
[2022-01-05] MEDS: SERTRALINE 100 MG (ZOLOFT) TAB PO SCH (19:32)
[2022-01-05] MEDS: SERTRALINE 50 MG (ZOLOFT) TABLET PO SCH (19:32)
[2022-01-06] MEDS: RT-ALBUTEROL HFA 8.5 GM INHALER IH SCH ×3 (03:06→16:01)
[2022-01-06] MEDS: CEFEPIME 1,000 MG/NS 50 ML IVPB IV SCH ×8 (03:37→21:03)
[2022-01-06 05:27] LABS: BASOPHILS % (AUTO) 0 % (0-10); EOSINOPHILS % (AUTO) 0 % (0-10); HEMOGLOBIN 9.1 g/dL (13.3-17.7)
[2022-01-06 05:29] LABS: HEMATOCRIT 30 % (40-54); LYMPHOCYTES # (AUTO) 1.2 10^3/uL (1.0-4.0); LYMPHOCYTES % (AUTO) 10 % (12-44); MEAN CORPUSCULAR HEMOGLOBIN 24 pg (25-34); MEAN CORPUSCULAR HGB CONC 31 g/dL (32-36); MEAN CORPUSCULAR VOLUME 77 fL (80-99); MONOCYTES # (AUTO) 1.5 10^3/uL (0.0-1.0); MONOCYTES % (AUTO) 12 % (0-12); NEUTROPHILS # (AUTO) 9.3 10^3/uL (1.8-7.8); NEUTROPHILS % (AUTO) 77 % (42-75); PLATELET COUNT 193 10^3/uL (130-400)
[2022-01-06 05:47] LABS: ALBUMIN 3.6 GM/DL (3.2-4.5); BILIRUBIN,TOTAL 0.6 MG/DL (0.1-1.0); CALCIUM 8.9 MG/DL (8.5-10.1); CREATININE SERUM 1.16 MG/DL (0.60-1.30); MAGNESIUM 1.9 MG/DL (1.6-2.4); PHOSPHORUS 4.4 MG/DL (2.3-4.7); POTASSIUM 3.2 MMOL/L (3.6-5.0); TOTAL PROTEIN 6.4 GM/DL (6.4-8.2)
[2022-01-06] MEDS: inSUlin ASPART (NovoLOG) 1 UNIT/0.01 ML (CHARGE PER UNIT) SC SCH (06:00)
[2022-01-06] MEDS: POTASSIUM CL 10MEQ/50ML IVPB 50 ML IV SCH (06:00)
[2022-01-06] MEDS: MAGNESIUM 1 GM/100 ML IVPB 100 ML IV SCH (06:00)
[2022-01-06] MEDS: KCL 20 MEQ TAB (K-DUR) PO SCH (06:00)
[2022-01-06] MEDS: CATHETER FLUSH 10 ML SYR IVP SCH ×3 (06:01→21:03)
--- NOTE | 2022-01-06 08:22 | Cardiology Progress Note ---
Subjective Date Seen by Provider: Jan 06, 2022 Time Seen by Provider: 08:20 Subjective/Events-last exam Patient in bed, still in isolation, no new complaints. Objective-Cardiology Exam Last Set of Vital Signs Vital Signs 01/01/22 01/05/22 01/05/22 01/06/22 22:23 07:48 19:43 08:00 Temp 36.6 Pulse 62 Resp 15 B/P (MAP) 119/63 (81) Pulse Ox 94 O2 Delivery Room Air O2 Flow Rate 1.00 FiO2 21 I&O Intake and Output 01/06/22 00:00 Intake Total 1305 ml Output Total 2625 ml Balance -1320 ml Intake Oral 1155 ml IV Total 150 ml Output Urine Total 2625 ml General: Alert, Cooperative HEENT: Atraumatic, PERRLA Neck: Supple Heart: Regular Rate Extremities: No Clubbing Skin: No Rashes Neuro: Normal Speech Psych/Mental Status: Mental Status NL, Mood NL Other physical findings Patient was seen from outside of room. No physical exam performed today Results Lab Laboratory Tests 01/06/22 05:10 A/P-Cardiology Admission Diagnosis COVID-19 pneumonia Non-ST elevation myocardial infarction Severe anemia Hypotensive shock Assessment/Plan COVID-19 pneumonia, improving slowly. Maintained in isolation in ICU, planning to transfer to 4th floor later today Sepsis with septic shock, has been hypotensive. Currently off all pressors and blood pressure appear to be stable. Continue to monitor Shortness of breath, secondary to above. Receiving diuretics Improving slowly, Continue on Lasix IV twice daily Non-ST elevation myocardial infarction, significant elevation in troponin, probably multifactorial in addition to the underlying coronary artery disease Cannot tolerate aggressive long-term anticoagulation at this point. Continue to monitor. Patient denied any active chest pain Conservative management is recommended at this point Severe anemia, received blood transfusion, H&H stable. Planning to restart ASA and continue to monitor. History of CVA, had dysphagia and right-sided vision loss, improved. Reporting resolution of most of his symptoms from the stroke. CT showed infarction of the left posterior cerebral artery distribution versus mass- effect. Has been doing well. Patient was maintained on Xarelto 20 mg daily. Currently on hold 2D echo was done on April 15, 2021 showing normal left ventricular size with mildly reduced ejection fraction of 45 to 50%, grade 2 diastolic dysfunction, left atrium 4.7 cm, severe mitral regurgitation, PA pressure 55 mmHg. Severe mitral regurgitation, significant deterioration of the pulmonary artery pressure. Deterioration in the left ventricular function compared to the previous study. ALESSIO was done on April 30, 2021 showing severe mitral regurgitation with flow reversal in the pulmonary vein, mildly reduced left ventricular function with ejection fraction 40% and dilated left atrium. will require evaluation for mitral valve clip after the cardiac catheterization Coronary artery disease, patient had an abnormal stress test on May 07, 2021 showing diaphragmatic attenuation with motion artifact affecting the quality of the images with mild decrease uptake of the mid to apical inferior wall and inferolateral wall with mild reversibility, stress score 5, SDS 4, ejection fraction 53%. Had a failed or had cardiac catheterization in July 2021 due to the total occlusion of the line common iliac artery and occlusion of the left common iliac artery. Referred to [facility] with Dr. Sarabia on July 11, 2021. Had bilateral iliac stenting. Currently asymptomatic. Continue to monitor Peripheral arterial disease, total occlusion of both iliac artery, referred to [facility] and had bilateral iliac stenting by Dr. Sarabia in July 2021. Using Viabahn stent. I will try to obtain the formal report from Dr. Sarabia. Carotid stenosis, had moderate, 40-59 percent stenosis. Nonobstructive disease disease, underwent left carotid stent at [facility]. Carotid ultrasound done on April 04, 2021 showed severe carotid stenosis bilaterally with patent stent on the left. 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 Hypertension, was hypotensive initially on admission. Currently off pressors Monitor blood pressure Hyperlipidemia, maintained on Lipitor 80 mg. Monitor lipids History of hematuria, BPH. 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 Supervisory-Addendum Brief Supervisory Addendum Participated in pt care: history, MDM, physical Personally performed: exam, history, MDM Care discussed with: [id number] Results interpretation: Verified all documentation Notes: Patient was seen and evaluated with Macy, examination performed, management plan was discussed, agree with the current scribed note, I made few changes to the note using Italic font Patient was seen at bedside, I spoke to him from the door without examining him to limit the exposure to COVID Patient reporting improvement, still having mild cough but overall no chest pain or shortness of breath I discussed the management plan with Dr. Sanchez, cannot tolerate anticoagulation at this point. Cannot tolerate aspirin and Plavix for 6 months if he ended up with a stent. Will need to have upper and lower endoscopy to rule out any source of bleeding MACY OSBORNE Jan 06, 2022 08:22 BERNICE MONTERO MD Jan 06, 2022 08:59
[2022-01-06] MEDS: dexAMETHasone 6 MG TAB (DECADRON) PO SCH (08:57)
[2022-01-06] MEDS: ASPIRIN E.C. 81 MG (ECOTRIN) TAB PO SCH (08:57)
[2022-01-06] MEDS: FINASTERIDE (PROSCAR) 5 MG TAB PO SCH (08:57)
[2022-01-06] MEDS: PANTOPRAZOLE 40 MG (PROTONIX) VIAL IV SCH (08:58)
[2022-01-06] MEDS: FUROSEMIDE 40 MG/4 ML INJ (LASIX) IVP SCH ×2 (08:58→16:03)
--- NOTE | 2022-01-06 09:14 | Diagnostic Imaging Report ---
INDICATION: Pneumonia Frontal chest obtained at 0508 a.m. compared to yesterday. There is cardiomegaly. There is central vascular congestion. There is some minimal infiltrate or atelectasis in the right base. Lungs are otherwise clear. There is no pneumothorax or pleural fluid. IMPRESSION: Cardiomegaly. Minimal infiltrate versus atelectasis in the right lung base with no pleural fluid collection. Dictated by: Dictated on workstation # [id number]
--- NOTE | 2022-01-06 09:16 | Progress Note ---
Subjective Subjective Date Seen by Provider: Jan 06, 2022 Time Seen by Provider: 08:35 Derek is demented, is an overall poor historian - however he has improved cognition with improved conversational ability from admission. Derek reports that he still has a cough, but feels like it has improved. He denies chest pain, shortness of breath, abdominal pain. He states that his appetite is improved. He denies any specific concerns other than going home soon. Review of Systems General: No Chills, No Night Sweats; Fatigue; No Malaise; Appetite (improved) HEENT: No Head Aches, No Dysphasia; Post Nasal Drip; No Sore Throat Pulmonary: No Dyspnea; Cough; No Pleuritic Chest Pain, No Other Cardiovascular: No: Chest Pain, Palpitations, Orthopnea, Paroxysmal Noc. Dyspnea, Edema Gastrointestinal: No: Nausea, Abdominal Pain, Diarrhea, Constipation Genitourinary: No Dysuria Musculoskeletal: No: back pain Neurological: Weakness, Confusion All Other Systems Reviewed All Other Systems Reviewed: Yes Objective Exam Vital Signs Vital Signs Date Time Temp Pulse Resp B/P (MAP) Pulse Ox O2 Delivery O2 Flow Rate FiO2 01/06/22 08:00 62 15 119/63 (81) 94 Room Air 01/06/22 07:23 92 Room Air 01/06/22 07:00 63 15 101/60 (74) 93 Room Air 01/06/22 06:56 81 01/06/22 06:00 67 12 107/65 (79) 89 Room Air 01/06/22 05:00 67 17 80/59 (66) 90 Room Air 01/06/22 04:00 93 Room Air 01/06/22 04:00 60 13 97/61 (73) 96 Room Air 01/06/22 03:06 92 Room Air 01/06/22 03:00 75 24 92/59 (70) 94 Room Air 01/06/22 02:00 74 17 88/60 (67) 93 Room Air 01/06/22 01:00 90 01/06/22 01:00 81 22 97/58 (70) 91 Room Air 01/06/22 00:00 92 Room Air 01/06/22 00:00 82 91/46 (61) 90 Room Air 01/05/22 23:00 80 93/56 (71) 92 Room Air 01/05/22 22:58 92 Room Air 01/05/22 22:03 73 105/60 (77) 92 Room Air 01/05/22 21:00 80 17 113/60 (87) 90 Room Air 01/05/22 20:00 88 19 108/57 (76) 96 Room Air 01/05/22 20:00 93 Room Air 01/05/22 19:43 36.6 01/05/22 19:02 94 Room Air 01/05/22 19:00 80 18 124/73 (93) 93 Room Air 01/05/22 19:00 80 01/05/22 19:00 90 129/62 01/05/22 18:00 76 19 95/66 (76) 95 Room Air 01/05/22 17:00 81 8 120/62 (81) 96 Room Air 01/05/22 16:00 37.0 01/05/22 16:00 82 15 108/62 (77) 90 Room Air 01/05/22 16:00 94 Room Air 01/05/22 15:00 75 17 97/61 (73) 92 Room Air 01/05/22 14:23 92 Room Air 01/05/22 14:00 81 13 106/51 (69) 94 Room Air 01/05/22 13:06 75 01/05/22 13:00 74 16 120/65 (83) 96 Room Air 01/05/22 12:16 96 Room Air 01/05/22 12:14 36.2 01/05/22 12:00 68 16 102/50 (67) 90 Room Air 01/05/22 11:00 69 11 107/58 (74) 89 Room Air 01/05/22 10:25 96 Room Air 01/05/22 10:00 63 26 109/69 (82) 92 Room Air I & O 01/06/22 07:00 Intake Total 1205 ml Output Total 1680 ml Balance -475 ml General Appearance: No Apparent Distress, WD/WN HEENT: PERRL/EOMI, Pharynx Normal Neck: Full Range of Motion, Supple Respiratory: Chest Non Tender, No Accessory Muscle Use, No Respiratory Distress, Crackles (improving) Cardiovascular: Regular Rate, Rhythm, Systolic Murmur Gastrointestinal: Normal Bowel Sounds, Non Tender, Soft Rectal: Deferred Back: Normal Inspection, No Vertebral Tenderness Extremity: Normal Capillary Refill, Non Tender, No Pedal Edema Neurologic/Psychiatric: Alert, Other (oriented to person, place not time) Skin: Normal Color, Warm/Dry Lymphatic: No Adenopathy Results Lab Laboratory Tests 01/05/22 10:53: Glucometer 233H 01/05/22 16:11: Glucometer 206H 01/05/22 20:23: Glucometer 213H 01/06/22 05:10: White Blood Count 12.0H, Red Blood Count 3.84L, Hemoglobin 9.1L, Hematocrit 30L, Mean Corpuscular Volume 77L, Mean Corpuscular Hemoglobin 24L, Mean Corpuscular Hemoglobin Concent 31L, Red Cell Distribution Width 22.1H, Platelet Count 193, Mean Platelet Volume 11.0, Immature Granulocyte % (Auto) 1, Neutrophils (%) (Auto) 77H, Lymphocytes (%) (Auto) 10L, Monocytes (%) (Auto) 12, Eosinophils (%) (Auto) 0, Basophils (%) (Auto) 0, Neutrophils # (Auto) 9.3H, Lymphocytes # (Auto) 1.2, Monocytes # (Auto) 1.5H, Eosinophils # (Auto) 0.0, Basophils # (Auto) 0.0, Immature Granulocyte # (Auto) 0.1, Percent Immature Platelet Fraction 7.4, Sodium Level 143, Potassium Level 3.2L, Chloride Level 105, Carbon Dioxide Level 22, Anion Gap 16H, Blood Urea Nitrogen 46H, Creatinine 1.16, Estimat Glomerular Filtration Rate 67, BUN/Creatinine Ratio 40, Glucose Level 1 54H, Calcium Level 8.9, Corrected Calcium 9.2, Phosphorus Level 4.4, Magnesium Level 1.9, Total Bilirubin 0.6, Aspartate Amino Transf (AST/SGOT) 23, Alanine Aminotransferase (ALT/SGPT) 24, Alkaline Phosphatase 75, Total Protein 6.4, Albumin 3.6 01/06/22 06:46: Glucometer 140H Microbiology 01/01/22 MRSA Screen - Final, Complete MRSA not isolated 01/01/22 Blood Culture - Preliminary, Resulted No growth 01/01/22 Urine Culture - Final, Complete Corynebacterium species Staph, Coag 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 - hgbstable at 9.1 - repeat labs in morning Sepsis with shock due to due to covid and shock due to anemia - will continue with supportive care, support pressures, anemia treated with transfusions. - added antibiotics, steroids on 01/03/22 - pt has improvement in his white count - xray improved per radiologist report Elevated troponin - severely elevated troponin - improved from 15 to 8, suspect elevation due to shock and anemia - consult to bail bondsman Cardiology - discussed with Dr. Arias, - pt is not a good candidate for any intervention at this time due to his illness COVID pneumonia - mild symptoms -started on antibiotics, steroid, mat protocol breathing treatments - after dose on 01/06/22 - dexamethasone stopped Chronic anticoagulation - holding anticoag due to low hgb on admission. Coronary artery disease - pt currently hypotensive, hold home medications for now. Depression and Vascular dementia - resume home meds once reconciled. Generalized weakness - will need therapy once he is improved. Hypotension - off of pressors for the past 24 hours. Hypokalemia - - giving potassium prn per protocol planning on pt going to 4th floor today dvt prophylaxis with scd's gi prophylaxis with ppi therapy Admission Dx Severe anemia COVID pneumonia Chronic anticoagulation Coronary artery disease Depression Vascular dementia Generalized weakness Hypotension Clinical Quality Measures Admission Status Admission Dx Severe anemia COVID pneumonia Chronic anticoagulation Coronary artery disease Depression Vascular dementia Generalized weakness Hypotension ODALYS CARDOZA MD Jan 06, 2022 09:16
--- NOTE | 2022-01-06 10:19 | Physical Therapy Evaluation ---
PT Evaluation-General Medical Diagnosis Admission Date Jan 01, 2022 at 19:24 Medical Diagnosis: Covid/severe anemia Onset Date: Jan 01, 2022 Therapy Diagnosis Therapy Diagnosis: generalized weakness/debility Precautions Precautions/Isolations: Airborne Isolation, Fall Prevention Referral Physician: Laura Reason for Referral: Evaluation/Treatment Medical History Pertinent Medical History: Atrial Fib, CVA, Dementia, HTN, PVD Current History EMS secondary to cough and "not feeling well" Reviewed History: Yes Social History Home: Single Level Current Living Status: Spouse (and 2 caregivers/sitters) Prior Prior Level of Function SCALE: Activities may be completed with or without assistive devices. 0-Ihnfcdevgt-itojzyd completes the activity by him/herself with no assistance from a helper. 5-Set-up or Clean-up Assistance-helper sets up or cleans up; patient completes activity. Halma assists only prior to or following the activity. 4-Supervision or Touching Assistance-helper provides verbal cues and/or touching/steadying and/or contact guard assistance as patient completes activity. Assistance may be provided throughout the activity or intermittently. 3-Partial/Moderate Assistance-helper does LESS THAN HALF the effort. Halma lifts, holds or supports trunk or limbs, but provides less than half the effort. 2-Substantial/Maximal Assistance-helper does MORE THAN HALF the effort. Halma lifts or holds trunk or limbs and provides more than half the effort. 4-Ozuwzvdei-xhixnx does ALL the effort. Patient does none of the effort to complete the activity. Or, the assistance of 2 or more helpers is required for the patient to complete the activity. If activity was not attempted, code reason: 7-Patient Refused. 9-Not Applicable-not attempted and the patient did not perform the activity before the current illness, exacerbation or injury. 10-Not Attempted due to Environmental Limitations-(lack of equipment, weather restraints, etc.). 88-Not Attempted due to Medical Conditions or Safety Concerns. Bed Mobility: 3 Transfers (B,C,W/C): 3 Gait: 3 (minimal distance per patient) Indoor Mobility (Ambulation): Needed Some Help Stairs: Not Applicalbe Prior Devices Use: Walker PT Evaluation-Current Subjective Patient states, "I don't walk. I'm in bed all the time at home." Objective Patient Orientation: Person Attachments: Abernathy Catheter ROM/Strength ROM Lower Extremities bilateral LE WFL Strength Lower Extremities 3/5 grossly bilateral LE Integumentary/Posture Bladder Incontinence: Abernathy Cath Posture WFL Neuromuscular (Tone, Coordination, Reflexes) diminished coordination/retropulsive Sensory Vision: Functional Hearing: Functional Transfers Lying to Sitting/Side of Bed(Q: 4 Sit to Stand (QC): 3 (retropulsive) Chair/Sdc-sc-Yykdt Xfer(QC): 3 (mod assist/retropulsive) Gait Does the Patient Walk?: No and Walking Goal IS indicated Mode of Locomotion: Both Anticipated Mode of Locomotion: Both Distance: 4 steps max assist Gait Assistive Device: FWW Comments/Gait Description retropulsive Balance Sitting Static: Fair Sitting Dynamic: Fair Standing Static: Poor Standing Dynamic: Poor Assessment/Needs Patient will benefit from skilled PT to address functional strength and mobility to improve current LOF to safely return to home or care facility at maximum LOF. Rehab Potential: Guarded PT Intermediate Goals General Internist And Physician Leader Goals PT Intermediate Goals Time Frame: Jan 24, 2022 Roll Left & Right (QC): 4 Sit to Lying (QC): 4 Lying-Sitting on Side/Bed(QC): 4 Sit to Stand (QC): 4 Chair/Qea-fa-Eesuo Xfer(QC): 4 Toilet Transfer (QC): 4 Walk 10 feet (QC): 3 Walk 50ft with 2 Turns (QC): 3 PT Plan Problem List Problem List: Activity Tolerance, Functional Strength, Safety, Balance, Gait, Transfer, Bed Mobility Treatment/Plan Treatment Plan: Continue Plan of Care Treatment Plan: Bed Mobility, Education, Functional Activity Kera, Functional Strength, Gait, Safety, Therapeutic Exercise, Transfers Treatment Duration: Jan 24, 2022 Frequency: 6 times per week Estimated Hrs Per Day: .25 hour per day Time Time In: 940 Time Out: 1000 Total Billed Treatment Time: 20 [facility] KATHERIN MOBLEY PT Jan 06, 2022 10:19
[2022-01-06 14:10] VITALS: BP 105/65
--- NOTE | 2022-01-06 15:59 | Physician Query Clarification ---
Physician Query-General Query to Physician: The medical record reflects the following clinical scenario: The patient, in the setting of History/Risk factors, Covid, Sepsis, Severe Anemia Clinical Findings Initial troponin I 15.026 then 8.882, "anterolateral ischemic changes on his electrocardiogram'" per plan coordinator. Treatment Cardiology consult with this treatment plan: Consider ASA "If his hemoglobin remains stable" "candidate for beta-kp", high-dose statin, "not a good candidate for an invasive cardiac evaluation at this time". Anemia treated with 4 units PRBC;s, IVF's and IV abx for Sepsis Question: Do you agree with the impression of NSTEMI, possibly Type I(list the diagnosis/condition) per (Consulting physician)? 1. Yes; will document NSTEMI possibly type I, in the Progress Notes 2. No; will continue current documentation in the Progress Notes 3. Other; will document explanation of clinical findings 4. Clinically undetermined; no explanation for clinical findings Please clarify and document your clinical opinion in the Progress Notes and Discharge Summary including the definitive and/or presumptive diagnosis, (suspected or probable), related to the above clinical findings. Please include clinical findings supporting your diagnosis. In responding to this query, please exercise your independent professional judgment. The purpose of this communication is to more accurately reflect the complexity of your patients condition. The fact that a question is asked does not imply that any particular answer is desired or expected. Thank you for timely response to this clarification. Nina López RN, MSN Clinical Horse Stud Worker [phone] [email or web address] PHYSICIAN RESPONSE: Based on the clinical findings in the record, please respond to the query above on this document as an addendum. Physician Response: Physician Response ABRAHAM DOCUMENT NSTEMI If you have questions please contact: Complex Manager: Ext: Thank you for your time and cooperation. Clinical Horse Stud Worker/Complex Manager This is a permanent part of the medical record NINA LÓPEZ Jan 06, 2022 15:59 ODALYS CARDOZA MD Jan 07, 2022 08:40
[2022-01-06 16:00] VITALS: BP 111/68
[2022-01-06] MEDS: ALLOPURINOL 100 MG (ZYLOPRIM) TAB PO SCH (16:03)
[2022-01-06 17:52] VITALS: BP 111/68
[2022-01-06] MEDS: SERTRALINE 100 MG (ZOLOFT) TAB PO SCH (18:21)
[2022-01-06] MEDS: SERTRALINE 50 MG (ZOLOFT) TABLET PO SCH (18:21)
[2022-01-06] MEDS ORDERED: RT-ALBUTEROL HFA 8.5 GM INHALER IH SCH (19:00)
[2022-01-06 20:26] VITALS: BP 98/64
[2022-01-06] MEDS: MICONAZOLE 2% POWDER (DESENEX AF) 90 GM TOP SCH (21:03)
[2022-01-06 23:35] VITALS: BP 109/73
[2022-01-07] MEDS: CEFEPIME 1,000 MG/NS 50 ML IVPB IV SCH ×4 (03:31→09:17)
[2022-01-07 03:33] VITALS: BP 109/61
[2022-01-07 04:24] LABS: BASOPHILS % (AUTO) 0 % (0-10); HEMOGLOBIN 8.7 g/dL (13.3-17.7); MEAN CORPUSCULAR VOLUME 77 fL (80-99)
[2022-01-07 04:26] LABS: EOSINOPHILS % (AUTO) 0 % (0-10); HEMATOCRIT 28 % (40-54); LYMPHOCYTES # (AUTO) 1.4 10^3/uL (1.0-4.0); LYMPHOCYTES % (AUTO) 10 % (12-44); MEAN CORPUSCULAR HEMOGLOBIN 24 pg (25-34); MEAN CORPUSCULAR HGB CONC 31 g/dL (32-36); MONOCYTES # (AUTO) 1.7 10^3/uL (0.0-1.0); MONOCYTES % (AUTO) 12 % (0-12); NEUTROPHILS # (AUTO) 10.7 10^3/uL (1.8-7.8); NEUTROPHILS % (AUTO) 77 % (42-75); PLATELET COUNT 170 10^3/uL (130-400); WHITE BLOOD COUNT 13.9 10^3/uL (4.3-11.0)
[2022-01-07 04:45] LABS: ALBUMIN 3.4 GM/DL (3.2-4.5); BILIRUBIN,TOTAL 0.6 MG/DL (0.1-1.0); CALCIUM 8.8 MG/DL (8.5-10.1); CREATININE SERUM 0.94 MG/DL (0.60-1.30); POTASSIUM 3.2 MMOL/L (3.6-5.0); TOTAL PROTEIN 6.1 GM/DL (6.4-8.2)
[2022-01-07] MEDS: FUROSEMIDE 40 MG/4 ML INJ (LASIX) IVP SCH (06:03)
[2022-01-07] MEDS: CATHETER FLUSH 10 ML SYR IVP SCH (06:03)
[2022-01-07 08:01] VITALS: BP 106/61
[2022-01-07] MEDS ORDERED: KCL 20 MEQ TAB (K-DUR) PO NR (09:00)
[2022-01-07] MEDS ORDERED: NS (IVPB) 50 ML ONE (09:03)
[2022-01-07] MEDS ORDERED: MICO90PO TOP (09:09)
[2022-01-07] MEDS ORDERED: GUAI100L13 PO (09:09)
[2022-01-07] MEDS ORDERED: ALBU8.5H9 IH (09:09)
--- NOTE | 2022-01-07 09:14 | Cardiology Progress Note ---
Subjective Date Seen by Provider: Jan 07, 2022 Time Seen by Provider: 08:50 Subjective/Events-last exam Patient in bed, no new complaints. Denies any chest pain. Review of Systems General: No Chills, No Night Sweats, No Fatigue; Malaise; No Appetite, No Other HEENT: No Head Aches, No Visual Changes, No Eye Pain, No Ear Pain, No Dysphasia, No Sinus Congestion, No Post Nasal Drip, No Sore Throat, No Other Pulmonary: No Dyspnea, No Cough, No Pleuritic Chest Pain, No Other Cardiovascular: No: Chest Pain, Palpitations, Orthopnea, Paroxysmal Noc. Dyspnea, Edema, Lt Headedness, Other Objective-Cardiology Exam Last Set of Vital Signs Vital Signs 01/05/22 01/06/22 01/07/22 07:48 17:52 08:01 Temp 36.5 Pulse 68 Resp 18 B/P (MAP) 106/61 (76) Pulse Ox 95 O2 Delivery Room Air O2 Flow Rate 1.00 FiO2 21 I&O Intake and Output 01/07/22 00:00 Intake Total 885 ml Output Total 2405 ml Balance -1520 ml Intake Oral 885 ml Output Urine Total 2405 ml # Bowel Movements 1 General: Alert, Cooperative HEENT: Atraumatic Neck: Supple Heart: Regular Rate, Normal S1, Normal S2 Extremities: No Clubbing Skin: No Rashes Neuro: Normal Speech Psych/Mental Status: Mental Status NL, Mood NL Results Lab Laboratory Tests 01/07/22 04:15 A/P-Cardiology Admission Diagnosis COVID-19 pneumonia Non-ST elevation myocardial infarction Severe anemia Hypotensive shock Assessment/Plan COVID-19 pneumonia, improving slowly. Maintained in isolation in ICU, planning to transfer to 4th floor later today Sepsis with septic shock, improved. Shortness of breath, secondary to above. Receiving diuretics Improving slowly, Worsening BUN, I held Lasix today. Short paroxysmal atrial tachycardia, frequent PVCs and ventricular trigeminy Starting Toprol-XL 25 mg daily and evaluate tolerance and response Hypokalemia, replace and monitor Non-ST elevation myocardial infarction, significant elevation in troponin, probably multifactorial in addition to the underlying coronary artery disease Cannot tolerate aggressive long-term anticoagulation at this point. Continue to monitor. Patient denied any active chest pain Conservative management is recommended at this point Severe anemia, received blood transfusion, H&H stable. ASA restarted, continue to monitor. History of CVA, had dysphagia and right-sided vision loss, improved. Reporting resolution of most of his symptoms from the stroke. CT showed infarction of the left posterior cerebral artery distribution versus mass- effect. Has been doing well. Patient was maintained on Xarelto 20 mg daily. Currently on hold 2D echo was done on April 15, 2021 showing normal left ventricular size with mildly reduced ejection fraction of 45 to 50%, grade 2 diastolic dysfunction, left atrium 4.7 cm, severe mitral regurgitation, PA pressure 55 mmHg. Severe mitral regurgitation, significant deterioration of the pulmonary artery pressure. Deterioration in the left ventricular function compared to the previous study. ALESSIO was done on April 30, 2021 showing severe mitral regurgitation with flow reversal in the pulmonary vein, mildly reduced left ventricular function with ejection fraction 40% and dilated left atrium. will require evaluation for mitral valve clip after the cardiac catheterization Coronary artery disease, patient had an abnormal stress test on May 07, 2021 showing diaphragmatic attenuation with motion artifact affecting the quality of the images with mild decrease uptake of the mid to apical inferior wall and inferolateral wall with mild reversibility, stress score 5, SDS 4, ejection frac tion 53%. Had a failed or had cardiac catheterization in July 2021 due to the total occlusion of the line common iliac artery and occlusion of the left common iliac artery. Referred to [facility] with Dr. Sarabia on July 11, 2021. Had bilateral iliac stenting. Currently asymptomatic. Continue to monitor Peripheral arterial disease, total occlusion of both iliac artery, referred to [facility] and had bilateral iliac stenting by Dr. Sarabia in July 2021. Using Viabahn stent. Carotid stenosis, had moderate, 40-59 percent stenosis. Nonobstructive disease disease, underwent left carotid stent at [facility]. Carotid ultrasound done on April 04, 2021 showed severe carotid stenosis bilaterally with patent stent on the left. 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 Hypertension, was hypotensive initially on admission. Currently off pressors I am restarting metoprolol 25 mg daily Hyperlipidemia, maintained on Lipitor 80 mg. Monitor lipids History of hematuria, BPH. 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 Supervisory-Addendum Brief Supervisory Addendum Participated in pt care: history, MDM, physical Personally performed: exam, history, MDM Care discussed with: JESÚS Results interpretation: Verified all documentation Notes: Patient was seen and evaluated with Macy, examination performed, management plan was discussed, agree with the current scribed note, I made few changes to the note using Italic font Patient was seen at bedside, complain of mild fatigue, feeling better Telemetry showed short episode of paroxysmal atrial tachycardia, frequent PVCs and ventricular trigeminy. Appears to be tolerating aspirin well I will change Lasix to 20 mg oral daily Adding Toprol-XL 25 mg daily and evaluate tolerance and response MACY OSBORNE Jan 07, 2022 09:14 BERNICE MONTERO MD Jan 07, 2022 09:36
--- NOTE | 2022-01-07 09:14 | D/C HH Face to Face Order ---
D/C Face to Face Orders Reconcile Patient Problems Problems Reviewed?: Yes Instructions for Patient Via [employer], Patient Instructions/FollowUp: [facility] Physician to follow Patient: [facility] Discharge Diet for Home: Regular Diet Patient Problems: Severe anemia COVID pneumonia Sepsis with shock Leukocytosis Chronic anticoagulation Coronary artery disease Depression Vascular dementia Generalized weakness Hypotension Elevated troponin Goals for Patient: IMPROVED STRENGTH, IMPROVED MOBILITY Patient Data-Allergies,Ht & Wt Patient Allergies: Coded Allergies: Penicillins (Unverified Allergy, Intermediate, RASH, 02/08/06) codeine (Unverified Allergy, Intermediate, RASH, 02/08/06) Home Health Need/Face to Face Date of Face to Face: Jan 07, 2022 Clinical Findings: Generalized weakness and fatigue, Muscle weakness I have seen Pt [id number]: Yes Discharged To: Home Diagnosis/Conditions: Severe anemia COVID pneumonia Sepsis with shock Leukocytosis Chronic anticoagulation Coronary artery disease Depression Vascular dementia Generalized weakness Hypotension Elevated troponin Patient is Homebound due to: Lupe fall risk due to instabilty, Muscle weakness, Shortness of breath/distress Homebound Status Due to the above stated illness, injury or surgical procedure (medical condition or diagnosis) and associated clinical findings, the patient is homebound because of his/her inability to leave home except with aid of a supportive device and/or person AND leaving the home requires a considerable and taxing effort or is medically contraindicated. Pt req the following assistanc: Medically contraindicated, Walker Home Health Nursing Orders Home Health Services Order: Nursing Services, Supervisor Paint-Evaluate & Treat, Physical Therapy-Evaluate & Treat Home Health Infusion Therapy Line Start Date: Jan 02, 2022 Home Health Lab Orders Labs (specify type/freq): CBC, CMP ONE WEEK Therapy Orders Therapy Orders: Physical Therapy, PT to assess for OT Therapy Specific Orders: Teach enviro modifications/safety, Increase strength/endurance, Provider maintenance therapy Certify Stmt I certify that this patient is under my care and that I, a nurse practitioner or a physician; a night assistant working with me, had a face to face encounter that - meets the physician face to face encounter requirements with this patient as dated. ODALYS CARDOZA MD Jan 07, 2022 09:14
[2022-01-07] MEDS: PANTOPRAZOLE 40 MG (PROTONIX) VIAL IV SCH (09:17)
[2022-01-07] MEDS: ASPIRIN E.C. 81 MG (ECOTRIN) TAB PO SCH (09:17)
[2022-01-07] MEDS: MICONAZOLE 2% POWDER (DESENEX AF) 90 GM TOP SCH (09:18)
[2022-01-07] MEDS: FINASTERIDE (PROSCAR) 5 MG TAB PO SCH (09:18)
--- NOTE | 2022-01-07 09:19 | Discharge Summary ---
Diagnosis/Chief Complaint Date of Admission Jan 01, 2022 at 19:24 Date of Discharge Discharge Date: Jan 07, 2022 Discharge Time: 1400 Admission Diagnosis Admission Diagnosis Severe anemia COVID pneumonia Sepsis with shock Leukocytosis Chronic anticoagulation Coronary artery disease Depression Vascular dementia Generalized weakness Hypotension Elevated troponin Discharge Diagnosis Severe anemia COVID pneumonia Sepsis with shock Leukocytosis Chronic anticoagulation Coronary artery disease Depression Vascular dementia Generalized weakness Hypotension Elevated troponin Reason Hospital Visit Pt is a 71 y/o male who is known to me from clinic. Derek presented to the ER due to feeling unwell, he was found to be covid positive and had a hemoglobin of 4.9 on admission through the ER. Derek has history of prior strokes, and is confused today with poor recall of past events. He reports that he was feeling sick and his brought him to the hospital. per ER notes, his reported a cough, and she called EMS who noted low blood pressure and tachycardia. Discharge Summary Discharge Physical Examination Allergies: Coded Allergies: Penicillins (Unverified Allergy, Intermediate, RASH, 02/08/06) codeine (Unverified Allergy, Intermediate, RASH, 02/08/06) Vitals & I&Os Vital Signs Date Time Temp Pulse Resp B/P (MAP) Pulse Ox O2 Delivery O2 Flow Rate FiO2 01/07/22 08:01 36.5 68 18 106/61 (76) 95 Room Air 01/06/22 17:52 21 01/05/22 07:48 1.00 General Appearance: Alert, Oriented X3, Cooperative, No Acute Distress HEENT: Atraumatic, PERRLA, Mucous Memb Moist/[place] Respiratory: Clear to Auscultation, Normal Air Movement Cardiovascular: Regular Rate Abdominal: Normal Bowel Sounds, Soft Extremities: No Clubbing, No Cyanosis Neuro: Normal Speech, Cranial Nerves 3-12 NL Psych/Mental Status: Mental Status NL, Mood NL Hospital Course Severe anemia COVID pneumonia Sepsis with shock Leukocytosis Chronic anticoagulation Coronary artery disease Depression Vascular dementia Generalized weakness Hypotension Elevated troponin Severe anemia - aspirin restarted by cardiology - will defer other anticoagulants and antiplatelet therapy to cardiology - replaced with transfusions x 4 units and will transfuse as needed. - hgb stable Sepsis with shock due to due to covid and shock due to anemia - will continue with supportive care, support pressures, anemia treated with transfusions. - added antibiotics, steroids on 01/03/22 - pt has improvement in his white count - xray improved per radiologist report Elevated troponin - severely elevated troponin - improved from 15 to 8, suspect elevation due to shock and anemia - consult to composition worker Cardiology - discussed with Dr. Arias, - pt is not a good candidate for any intervention at this time due to his illness COVID pneumonia - mild symptoms -started on antibiotics, steroid, mat protocol breathing treatments - after dose on 01/06/22 - dexamethasone stopped Chronic anticoagulation - holding anticoag due to low hgb on admission. Coronary artery disease - pt currently hypotensive, hold home medications for now. - WILL LOOK AT RESTARTING HOME MEDICATIONS ONCE HIS BP INCREASES AT HOME Depression and Vascular dementia - resume home meds once reconciled. Generalized weakness - THERAPY INITIATED - PATIENT TO GO HOME WITH HOME HEALTH Hypokalemia - - IMPROVED DC TO HOME TODAY WITH [facility] dvt prophylaxis with scd's gi prophylaxis with ppi therapy Pending Labs Laboratory Tests 01/07/22 04:15: White Blood Count 13.9, Red Blood Count 3.60, Hemoglobin 8.7, Hematocrit 28, Mean Corpuscular Volume 77, Mean Corpuscular Hemoglobin 24, Mean Corpuscular Hemoglobin Concent 31, Red Cell Distribution Width 21.8, Platelet Count 170, Mean Platelet Volume , Immature Granulocyte % (Auto) 1, Neutrophils (%) (Auto) 77, Lymphocytes (%) (Auto) 10, Monocytes (%) (Auto) 12, Eosinophils (%) (Auto) 0, Basophils (%) (Auto) 0, Neutrophils # (Auto) 10.7, Lymphocytes # (Auto) 1.4, Monocytes # (Auto) 1.7, Eosinophils # (Auto) 0.0, Basophils # (Auto) 0.0, Immature Granulocyte # (Auto) 0.1, Percent Immature Platelet Fraction 7.5, Sodium Level 141, Potassium Level 3.2, Chloride Level 105, Carbon Dioxide Level 22, Anion Gap 14, Blood Urea Nitrogen 47, Creatinine 0.94, Estimat Glomerular Filtration Rate 86, BUN/Creatinine Ratio 50, Glucose Level 137, Calcium Level 8.8, Corrected Calcium 9.3, Total Bilirubin 0.6, Aspartate Amino Transf (AST/SGOT) 23, Alanine Aminotransferase (ALT/SGPT) 29, Alkaline Phosphatase 75, Total Protein 6.1, Albumin 3.4 Discharge Condition at discharge IMPROVED Instructions to patient/family Please see electronic discharge instructions given to patient. Discharge Medications Reviewed and agree with Discharge Medication list on patient's Discharge I nstruction sheet ODALYS CARDOZA MD Jan 07, 2022 09:19
[2022-01-07] MEDS ORDERED: METO-351 PO (10:26)
[2022-01-07] MEDS: RT-ALBUTEROL HFA 8.5 GM INHALER IH PRN (10:51)
[2022-01-07 12:23] VITALS: BP 115/72
[2022-01-07] MEDS ORDERED: RT-ALBUTEROL HFA 8.5 GM INHALER IH SCH (14:00)
[2022-01-07 14:20] VITALS: BP 115/72
[2022-01-08] MEDS ORDERED: FUROSEMIDE 20 MG (LASIX) TAB PO SCH (09:00)
== END 2022-01-07 14:20 | disposition home health service (06) | DRG 871 ==
LOC: EDUNIT# 18:18 → ER 18:19 → ICU 19:24 → 4TH 01-06 13:40
PROVIDERS: ADMIT Family Medicine; ATTEND Family Medicine
PROC: 5A09357 Assistance with Respiratory Ventilation, Less than 24 Consecutive Hours, Continuous Positive Airway Pressure (ICD-10-PCS; principal; 2022-01-03)
DX: A41.89 Other specified sepsis (principal); I21.4 Non-ST elevation (NSTEMI) myocardial infarction; U07.1 COVID-19; R65.21 Severe sepsis with septic shock; J12.82 Pneumonia due to coronavirus disease 2019; J96.00 Acute respiratory failure, unspecified whether with hypoxia or hypercapnia; I50.43 Acute on chronic combined systolic (congestive) and diastolic (congestive) heart failure; N17.9 Acute kidney failure, unspecified; I25.110 Atherosclerotic heart disease of native coronary artery with unstable angina pectoris; I48.92 Unspecified atrial flutter; Z66 Do not resuscitate; I25.5 Ischemic cardiomyopathy; I27.20 Pulmonary hypertension, unspecified; E87.6 Hypokalemia; I11.0 Hypertensive heart disease with heart failure; D64.9 Anemia, unspecified; F01.50 Vascular dementia, unspecified severity, without behavioral disturbance, psychotic disturbance, mood disturbance, and anxiety; I34.0 Nonrheumatic mitral (valve) insufficiency; E78.2 Mixed hyperlipidemia; I69.391 Dysphagia following cerebral infarction; I69.398 Other sequelae of cerebral infarction; R13.10 Dysphagia, unspecified; H54.61 Unqualified visual loss, right eye, normal vision left eye; N40.0 Benign prostatic hyperplasia without lower urinary tract symptoms; M19.91 Primary osteoarthritis, unspecified site; R73.9 Hyperglycemia, unspecified; F32.A Depression, unspecified; I95.9 Hypotension, unspecified; I65.23 Occlusion and stenosis of bilateral carotid arteries; I73.9 Peripheral vascular disease, unspecified; Z79.01 Long term (current) use of anticoagulants; Z87.891 Personal history of nicotine dependence; Z95.820 Peripheral vascular angioplasty status with implants and grafts; Z88.5 Allergy status to narcotic agent; Z88.0 Allergy status to penicillin
CPT/HCPCS: 36415; 36569; 71045; 76937; 80048; 80053; 80202; 81000; 82274; 82947; 83036; 83605; 83735; 84100; 84145; 84484; 85007; 85025; 85027; 85045; 85379; 85610; 85730; 86141; 86850; 86900; 86901; 86920; 87040; 87081; 87088; 87636; 93005; 94640; 94660; 94760; 96360

== ENCOUNTER 2022-01-16 16:07 | Emergency (ER) | payer MEDICARE, OTHER ==
[~2022-01-16] VITALS: Ht 182.8 cm; Wt 81.6 kg
[~2022-01-16 16:07] MED LIST changes: +ALBU8.5H9 IH; +ASPI-1238 PO; +GUAI100L13 PO; +METO-351 PO; +MICO90PO TOP
--- NOTE | 2022-01-16 16:28 | ED Cardiac General ---
History of Present Illness General Chief Complaint: Cardiac/General Problems Stated Complaint: LOW PULSE RATE Nursing Triage Note: PT TO RM 8 BY WC WITH COMPLAINT OF LOW HR. STATES PTS HR WILL DROP INTO THE 30s AT HOME. STATES WAS ADMITTED END OF DECEMBER WITH PNEUMONIA AND COVID. PT DENIES COMPLAINTS. Source: patient Exam Limitations: no limitations History of Present Illness Date Seen by Provider: Jan 16, 2022 Time Seen by Provider: 16:26 Initial Comments To ER by private vehicle accompanied by his with reports of low heart rate. Patient was discharged from the hospital on 01/07/2022 following an admission for COVID-19 and pneumonia. Since then his heart rate has been in the 40s. He denies any weakness or lightheadedness that is out of the norm for him no chest pain and minimal shortness of breath. He is on metoprolol 25 mg tablets but only takes half a tablet daily. Manager Payment is Dr. Leyva. Timing/Duration: changing over time Severity: moderate Location: central Activities at Onset: none Prior CP/Workup: no prior chest pain NTG SL HADOOP DEVELOPER: No ASA po HADOOP DEVELOPER: No Associated Systoms: Denies Symptoms Allergies and Home Medications Allergies Coded Allergies: Penicillins (Unverified Allergy, Intermediate, RASH, 02/08/06) codeine (Unverified Allergy, Intermediate, RASH, 02/08/06) Patient Home Medication List Home Medication List Reviewed: Yes Acetaminophen (Tylenol Extra Strength) 500 Mg Tablet, 1,000 MG PO BID, (Reported) Entered as Reported by: GARCIA VIRAMONTES on 08/27/20 1442 Albuterol Sulfate (Proair Hfa) 90 Mcg Hfa.aer.ad, 1 PUFF IH TID Prescribed by: ODALYS CARDOZA on 01/07/22 0909 Allopurinol (Allopurinol) 100 Mg Tablet, 100 MG PO 1600, (Reported) Entered as Reported by: MARICRUZ RUSSELL on 03/06/21 1240 Amitriptyline HCl (Amitriptyline HCl) 10 Mg Tablet, 10 MG PO 1930, (Reported) Entered as Reported by: JACKELYN NASCIMENTO on 07/09/21 0833 Aspirin (Aspirin EC) 81 Mg Tablet.dr, 81 MG PO 0700, (Reported) Entered as Reported by: GARCIA VIRAMONTES on 01/02/22 1204 Atorvastatin Calcium (Atorvastatin Calcium) 80 Mg Tablet, 80 MG PO 1900, (Reported) Entered as Reported by: MARICRUZ RUSSELL on 03/06/21 1240 Finasteride (Finasteride) 5 Mg Tablet, 5 MG PO 0930, (Reported) Entered as Reported by: GARCIA VIRAMONTES on 08/27/20 1441 Guaifenesin (Guaifenesin) 100 Mg/5 Ml Liquid, 200 MG PO Q4H PRN for COUGH Prescribed by: ODALYS CARDOZA on 01/07/22 0909 Metoprolol Succinate (Toprol Xl) 25 Mg Tab.er.24h, 25 MG PO DAILY Prescribed by: BERNICE LEYVA on 01/07/22 1026 Miconazole Nitrate (Lotrimin AF) 2 % Powder, 1 GM TOP BID Prescribed by: ODALYS CARDOZA on 01/07/22 0909 Potassium Chloride (Klor-Con M20) 20 Meq Tab.er.prt, 20 MEQ PO 0700, (Reported) Entered as Reported by: GARCIA VIRAMONTES on 08/27/20 1441 Sertraline HCl (Sertraline HCl) 50 Mg Tablet, 50 MG PO 1900, (Reported) Entered as Reported by: GARCIA VIRAMONTES on 04/30/21 1042 Sertraline HCl (Sertraline HCl) 100 Mg Tablet, 100 MG PO 1900, (Reported) Entered as Reported by: GARCIA VIRAMONTES on 04/30/21 1042 Tamsulosin HCl (Flomax) 0.4 Mg Cap, 0.4 MG PO 1930, (Reported) Entered as Reported by: GARCIA VIRAMONTES on 08/27/20 1441 Review of Systems Review of Systems Constitutional: see HPI EENTM: No Symptoms Reported Respiratory: See HPI, Shortness of Air (Intermittent) Cardiovascular: No Symptoms Reported; Denies Chest Pain, Denies Edema, Denies Irregular Heart Rate, Denies Lightheadedness, Denies Palpitations, Denies Syncope Gastrointestinal: No Symptoms Reported Genitourinary: No Symptoms Reported Musculoskeletal: no symptoms reported Skin: no symptoms reported Psychiatric/Neurological: No Symptoms Reported Endocrine: No Symptoms Reported Hematologic/Lymphatic: No Symptoms Reported Past [id number] Hx Immunizations Up To Date First/Initial COVID19 Vaccinat: unk Second COVID19 Vaccination Ori: unk Seasonal Allergies Seasonal Allergies: No Past Medical History Surgery/Hospitalization HX: stroke mar 2020, Surgeries: Yes Appendectomy, Ear Surgery, Joint Replacement, Vascular Surgery Respiratory: No Currently Using CPAP: No Currently Using BIPAP: No Cardiac: Yes Atrial Fibrillation, High Cholesterol, Hypertension, Peripheral Vascular, Valv ular Heart Disease Neurological: Yes Dementia, Stroke Reproductive Disorders: No Sexually Transmitted Disease: No HIV/AIDS: No Genitourinary: Yes Benign Prostatic Hyperpl, Prostate Problems, Bladder Infection, Kidney Stones Gastrointestinal: No Musculoskeletal: Yes Arthritis, Gout Endocrine: No HEENT: No Loss of Vision: Denies Hearing Impairment: Hard of Hearing Cancer: No Psychosocial: No Anxiety, Depression Integumentary: No Blood Disorders: No Adverse Reaction/Blood Tranf: No Family Medical History Heart Disease, Hypertension Physical Exam Vital Signs Vital Signs - First Documented 01/16/22 16:20 Pulse 80 Resp 16 B/P (MAP) 141/58 (85) Pulse Ox 98 O2 Delivery Room Air Capillary Refill : Less Than 3 Seconds Height, Weight, BMI Height: '" Weight: lbs. oz. kg; 24.00 BMI Method: General Appearance: No Apparent Distress, Chronically ill HEENT: PERRL/EOMI, TMs Normal Neck: Full Range of Motion, Normal Inspection Respiratory: No Accessory Muscle Use, No Respiratory Distress Cardiovascular: Regular Rate, Rhythm, Normal Peripheral Pulses, Other (EKG shows sinus rhythm with bigeminal PVCs. Rate of 82 on EKG. Palpable radial pulse is 40. Blood pressure is 141/58.) Gastrointestinal: Normal Bowel Sounds, Non Tender, Soft Extremity: Normal Capillary Refill, Normal Inspection Neurologic/Psychiatric: Alert, Oriented x3 Skin: Normal Color, Warm/Dry Progress/Results/Core Measures Results/Orders Lab Results Laboratory Tests Test 01/16/22 16:28 Range/Units White Blood Count 9.8 4.3-11.0 10^3/uL Red Blood Count 4.16 L 4.30-5.52 10^6/uL Hemoglobin 9.7 L 13.3-17.7 g/dL Hematocrit 34 L 40-54 % Mean Corpuscular Volume 81 80-99 fL Mean Corpuscular Hemoglobin 23 L 25-34 pg Mean Corpuscular Hemoglobin Concent 29 L 32-36 g/dL Red Cell Distribution Width 22.7 H 10.0-14.5 % Platelet Count 477 H 130-400 10^3/uL Mean Platelet Volume 10.0 9.0-12.2 fL Immature Granulocyte % (Auto) 1 % Neutrophils (%) (Auto) 59 42-75 % Lymphocytes (%) (Auto) 26 12-44 % Monocytes (%) (Auto) 10 0-12 % Eosinophils (%) (Auto) 2 0-10 % Basophils (%) (Auto) 2 0-10 % Neutrophils # (Auto) 5.7 1.8-7.8 X 10^3 Lymphocytes # (Auto) 2.6 1.0-4.0 X 10^3 Monocytes # (Auto) 1.0 0.0-1.0 X 10^3 Eosinophils # (Auto) 0.2 0.0-0.3 10^3/uL Basophils # (Auto) 0.2 H 0.0-0.1 10^3/uL Immature Granulocyte # (Auto) 0.1 0.0-0.1 10^3/uL Prothrombin Time 14.5 12.2-14.7 SEC INR Comment 1.1 0.8-1.4 Activated Partial Thromboplast Time 36 H 24-35 SEC Sodium Level 140 135-145 MMOL/L Potassium Level 4.2 3.6-5.0 MMOL/L Chloride Level 108 H 98-107 MMOL/L Carbon Dioxide Level 23 21-32 MMOL/L Anion Gap 9 5-14 MMOL/L Blood Urea Nitrogen 12 7-18 MG/DL Creatinine 0.92 0.60-1.30 MG/DL Estimat Glomerular Filtration Rate 88 BUN/Creatinine Ratio 13 Glucose Level 107 H 70-105 MG/DL Calcium Level 9.2 8.5-10.1 MG/DL Corrected Calcium 9.5 8.5-10.1 MG/DL Magnesium Level 1.7 1.6-2.4 MG/DL Total Bilirubin 0.4 0.1-1.0 MG/DL Aspartate Amino Transf (AST/SGOT) 21 5-34 U/L Alanine Aminotransferase (ALT/SGPT) 25 0-55 U/L Alkaline Phosphatase 110 40-136 U/L Myoglobin 34.7 10.0-92.0 NG/ML Troponin I 0.029 H <0.028 NG/ML Total Protein 6.7 6.4-8.2 GM/DL Albumin 3.6 3.2-4.5 GM/DL My Orders Orders - DIGNA PRICE APRN Cbc With Automated Diff (01/16/22 16:19) Magnesium (01/16/22 16:19) Chest 1 View, Ap/Pa Only (01/16/22 16:19) Ekg Tracing (01/16/22 16:19) Comprehensive Metabolic Panel (01/16/22 16:19) Myoglobin Serum (01/16/22 16:19) Protime With Inr (01/16/22 16:19) Partial Thromboplastin Time (01/16/22 16:19) O2 (01/16/22 16:19) Monitor-Rhythm Ecg Trace Only (01/16/22 16:19) Lipid Panel (01/17/22 06:00) Ed Iv/Invasive Line Start (01/16/22 16:19) Troponin I Marisa (01/16/22 16:19) Vital Signs/I&O 01/16/22 16:20 Pulse 80 Resp 16 B/P (MAP) 141/58 (85) Pulse Ox 98 O2 Delivery Room Air Blood Pressure Mean: 85 Departure Communication (Admissions) 1801-troponin is on a downward trend. It was 15 about 11 days ago. Patient has no hypotension or lightheadedness. Spoke with Dr. Arias on-call for cardiology and reviewed EKG with him. He recommends continuing the metoprolol at the current dosage which would be 12.5 mg, discharged home and patient can follow-up outpatient. Impression Primary Impression: Bigeminal pulse Disposition: HOME, SELF-CARE Condition: Stable Departure-Patient Inst. Decision time for Depature: 18:01 Referrals: ODALYS CARDOZA MD (PCP/Family) Primary Care Physician Patient Instructions: Bradycardia Add. Discharge Instructions: 1. Call Dr. Leyva on Wednesday to make an appointment to be seen for follow-up. Return to ER in the meantime for any chest pain shortness of breath lightheadedness or any other concerns. All discharge instructions reviewed with patient and/or family. Voiced understanding. DIGNA PRICE APRN Jan 16, 2022 16:28
[2022-01-16 16:37] LABS: BASOPHILS # (AUTO) 0.2 10^3/uL (0.0-0.1); BASOPHILS % (AUTO) 2 % (0-10); EOSINOPHILS # (AUTO) 0.2 10^3/uL (0.0-0.3); EOSINOPHILS % (AUTO) 2 % (0-10); HEMATOCRIT 34 % (40-54); HEMOGLOBIN 9.7 g/dL (13.3-17.7); LYMPHOCYTES # (AUTO) 2.6 X 10^3 (1.0-4.0); LYMPHOCYTES % (AUTO) 26 % (12-44); MEAN CORPUSCULAR HEMOGLOBIN 23 pg (25-34); MEAN CORPUSCULAR HGB CONC 29 g/dL (32-36); MEAN CORPUSCULAR VOLUME 81 fL (80-99); MONOCYTES % (AUTO) 10 % (0-12); NEUTROPHILS # (AUTO) 5.7 X 10^3 (1.8-7.8); NEUTROPHILS % (AUTO) 59 % (42-75); PLATELET COUNT 477 10^3/uL (130-400); WHITE BLOOD COUNT 9.8 10^3/uL (4.3-11.0)
--- NOTE | 2022-01-16 16:47 | Diagnostic Imaging Report ---
EXAMINATION: Chest, one view. HISTORY: Chest pain. COMPARISON: 01/06/2022. FINDINGS: There is mild right base atelectasis. Otherwise, the lungs are clear without edema or pneumonia. No pleural effusion or pneumothorax. Heart size is normal. IMPRESSION: 1. Mild atelectasis, otherwise clear lungs. Dictated by: Dictated on workstation # [id number]
[2022-01-16 16:58] LABS: INR 1.1 (0.8-1.4); PROTHROMBIN TIME PATIENT 14.5 SEC (12.2-14.7)
[2022-01-16 17:00] LABS: ALBUMIN 3.6 GM/DL (3.2-4.5); POTASSIUM 4.2 MMOL/L (3.6-5.0)
[2022-01-16 17:01] LABS: CALCIUM 9.2 MG/DL (8.5-10.1)
[2022-01-16 17:02] LABS: TOTAL PROTEIN 6.7 GM/DL (6.4-8.2)
[2022-01-16 17:04] LABS: BILIRUBIN,TOTAL 0.4 MG/DL (0.1-1.0)
[2022-01-16 17:06] LABS: CREATININE SERUM 0.92 MG/DL (0.60-1.30)
[2022-01-16 17:09] LABS: MAGNESIUM 1.7 MG/DL (1.6-2.4)
[2022-01-16 18:15] VITALS: BP 117/59
== END 2022-01-16 18:15 | disposition home or self-care (01) ==
LOC: EDUNIT# 16:07 → ER 16:09
DX: R00.8 Other abnormalities of heart beat (principal); Z86.16 Personal history of COVID-19
CPT/HCPCS: 36415; 71045; 80053; 83735; 83874; 84484; 85025; 85610; 85730; 93005

== ENCOUNTER 2022-01-23 09:59 | Day surgery (SDC) | payer MEDICARE, OTHER ==
[~2022-01-23] VITALS: Ht 182.8 cm; Wt 84.8 kg
[2022-01-23] MEDS ORDERED: LIDOCAINE 1% INJ 30 ML (XYLOCAINE) VIAL ONE (10:29)
[2022-01-23 10:33] VITALS: BP 136/82
--- NOTE | 2022-01-23 11:50 | Implantation of Loop Monitor ---
Implant of Loop Monitior IMPLANTATION OF LOOP MONITOR REPORT DATE OF PROCEDURE: 01/23/22 PREOP DIAGNOSIS: Cryptogenic stroke POSTOP DIAGNOSIS: Cryptogenic stroke PROCEDURE DETAILS: The patient is a 71 male with history of cryptogenic stroke, paroxysmal atrial tachycardia, palpitation, loop monitor was advised for long-term monitoring. Therefore implantable loop recorder was discussed and agreed with the patient. Informed consent was taken. All risks and complications were discussed at length. The patient was draped and prepped in the usual sterile fashion. Local anesthesia was lidocaine, which was given in the substernal area close to the 4th intercostal space. Loop monitor [id number] was implanted according to the protocol. Steri-Strips were placed at the end of the procedure. There were no complications and the patient tolerated the procedure well. The device was interrogated with a voltage of. ANESTHESIA: Local anesthesia with lidocaine. COMPLICATIONS: None CONTRAST/FLUOROSCOPY: None CONCLUSION: Successful implantation of loop monitor with no complication FINAL DIAGNOSIS: Cryptogenic stroke Palpitation Paroxysmal atrial tachycardia Hypertension BERNICE MONTERO MD Jan 23, 2022 11:50
== END 2022-01-23 12:11 | disposition home or self-care (01) ==
LOC: CATH 09:59
PROVIDERS: ATTEND Internal Medicine Cardiovascular Disease
DX: I69.391 Dysphagia following cerebral infarction (principal); I69.398 Other sequelae of cerebral infarction; I47.1 Supraventricular tachycardia; R00.2 Palpitations; I10 Essential (primary) hypertension; I25.2 Old myocardial infarction; R13.10 Dysphagia, unspecified; H54.7 Unspecified visual loss; I25.10 Atherosclerotic heart disease of native coronary artery without angina pectoris; I34.0 Nonrheumatic mitral (valve) insufficiency; I65.23 Occlusion and stenosis of bilateral carotid arteries; E78.5 Hyperlipidemia, unspecified; Z86.16 Personal history of COVID-19; Z87.891 Personal history of nicotine dependence; Z79.82 Long term (current) use of aspirin; Z79.899 Other long term (current) drug therapy
CPT/HCPCS: 33285; C1764

== ENCOUNTER → 2022-07-13 | Outpatient (CLI) | payer MEDICARE, OTHER ==
[~2022-07-13] MED LIST changes: +CLOP-31 PO; -CLOP75TA69 PO
== END ==
LOC: CARD 09:30
PROVIDERS: ATTEND Physician Assistant
DX: I08.0 Rheumatic disorders of both mitral and aortic valves (principal); I25.10 Atherosclerotic heart disease of native coronary artery without angina pectoris; I11.9 Hypertensive heart disease without heart failure
CPT/HCPCS: 93306